=== PATIENT | male | born 1980 | race African-American/Black ===

== ENCOUNTER 2020-02-20 08:36 | Emergency (ER) | payer OTHER ==
--- OUTSIDE RECORDS SUMMARY | 2020-02-20 08:38 | XMS REPORT | Summary of Care ---
:1980 Author Organization [facility] - [facility] Address [address] [place] [id number] Care Team Providers Name Role Phone Ilya Baca Primary Care Provider Reason for Visit Reason Comments Pain left side gluteal pain. Auth/Cert Status Reason Specialty Diagnoses / Referred By Referred To Procedures Contact Contact Emergency [facility] [address] [place] [address] [place] [address] Encounter Details Date Type Department Care Team Description 02/19/2020 Emergency [facility]-Emergency Department Fabien Thomas FNP [address] [place] [address] [place] [address] [phone] Allergies Active Allergy Reactions Severity Noted Date Comments Loratadine Unknown - See comments 2008 documented as of this encounter (statuses as of 02/19/2020) Medications Medication Sig Dispensed Refills Start Date End Date Status citalopram (CELEXA) 0 05/09/2016 Active 40 mg tablet EPIPEN 2-ARGELIA 0.3 0 05/21/2016 Active mg/0.3 mL injection mirtazapine 15 mg Take 15 mg 0 Active tablet by mouth at bedtime. budesonide (UCERIS) 9 Take by 0 Active mg TaDE mouth. diazePAM (VALIUM) 10 Take 10 mg 0 Active mg tablet by mouth. zolpidem (AMBIEN) 10 Take 10 mg 0 Active mg tablet by mouth. methocarbamol Take 1 28 tablet 0 02/13/2020 Active (ROBAXIN-750) 750 mg tablet by tabletIndications: mouth 4 Muscle strain of left (four) times gluteal region, daily. initial encounter HYDROcodone-acetamino Take 1 Tab 0 02/19/2020 Discontinued phen (NORCO) 10-325 by mouth mg tablet every 6 (six) hours as needed. ALPRAZolam (XANAX) 1 0 05/03/2016 02/19/2020 Discontinued mg tablet amitriptyline 0 05/21/2016 02/19/2020 Discontinued (ELAVIL) 25 mg tablet gabapentin 0 05/16/2016 02/19/2020 Discontinued (NEURONTIN) 300 mg capsule lactulose (CEPHULAC) 0 04/24/2016 02/19/2020 Discontinued 10 gram/15 mL solution methocarbamol 0 05/03/2016 02/19/2020 Discontinued (ROBAXIN) 750 mg tablet ondansetron 0 05/04/2016 02/19/2020 Discontinued (ZOFRAN-ODT) 4 mg disintegrating tablet metoprolol tartrate Take 50 mg 0 02/19/2020 Discontinued 50 mg tablet by mouth daily. CYCLOBENZAPRINE HCL Take 10 mg 0 02/19/2020 Discontinued (FLEXERIL ORAL) by mouth 2 (two) times daily. documented as of this encounter (statuses as of 02/19/2020) Active Problems Problem Noted Date Lumbago 2008 documented as of this encounter (statuses as of 02/19/2020) Social History Tobacco Use Types Packs/Day Years Used Date Current Every Day Smoker Alcohol Use Drinks/Week oz/Week Comments Yes 7 Standard drinks or equivalent 7.0 Sex Assigned at Date Recorded Not on file Job Start Date Occupation Industry Not on file Not on file Not on file Travel History Travel Start Travel End No recent travel history available. documented as of this encounter Last Filed Vital Signs Vital Sign Reading Time Taken Comments Blood Pressure 122/78 02/19/2020 8:56 PM CDT Pulse 88 02/19/2020 8:56 PM CDT Temperature 37.2 C (99 F) 02/19/2020 8:56 PM CDT Respiratory Rate 17 02/19/2020 8:56 PM CDT Oxygen Saturation 98% 02/19/2020 8:56 PM CDT Inhaled Oxygen Concentration - - Weight 77.1 kg (170 lb) 02/19/2020 8:56 PM CDT Height 177.8 cm (5' 10") 02/19/2020 8:56 PM CDT Body Mass Index 24.39 02/19/2020 8:56 PM CDT documented in this encounter Plan of Treatment Health Maintenance Due Date Last Done Comments VARICELLA VACCINES (1 of 2 - 1983 2-dose childhood series) DTaP,Tdap,and Td Vaccines (1 - 1993 Tdap) INFLUENZA VACCINE (#1) 2019 PNEUMOCOCCAL 0-64 YEARS COMBINED Aged Out No longer eligible based on SERIES patient's age to complete this topic documented as of this encounter Procedures Procedure Name Priority Date/Time Associated Diagnosis Comments CONSENT/REFUSAL FOR Routine 02/19/2020 8:46 PM CDT DIAGNOSIS AND TREATMENT documented in this encounter Results Not on filedocumented in this encounter Insurance Payer Benefit Plan / Subscriber ID Effective Dates Phone Address Type Group [facility] [id number] [facility] PPO t S documented as of this encounter
--- OUTSIDE RECORDS SUMMARY | 2020-02-20 08:38 | XMS REPORT ---
:1980 [facility] Address [address] [place] [address] Dr. Truong [address] [place] [address] Care Team Providers Name Role Phone Unavailable Unavailable Unavailable Problems This patient has no known problems. Allergies, Adverse Reactions, Alerts This patient has no known allergies or adverse reactions. Medications This patient has no known medications.
--- OUTSIDE RECORDS SUMMARY | 2020-02-20 08:38 | XMS REPORT | Summary of Care ---
:1980 Author Organization [facility] - [facility] Address [address] [place] [address] Care Team Providers Name Role Phone Ilya Baca Primary Care Provider Reason for Visit Reason Comments Hip Pain Auth/Cert Status Reason Specialty Diagnoses / Referred By Referred To Procedures Contact Contact Emergency Medicine [facility] Emergency Dept [address] [place] [address] [place] [address] Encounter Details Date Type Department Care Team Description 02/13/2020 Emergency [facility]-Emergency Jayden Grey, Muscle strain of left Department MD gluteal region, initial [address] [place] [address] [address] [facility] encounter (Primary Dx) [place] [address] [id number] [place], [place] [id number] Allergies Active Allergy Reactions Severity Noted Date Comments Loratadine Unknown - See comments 2008 documented as of this encounter (statuses as of 02/13/2020) Medications Medication Sig Dispensed Refills Start Date End Date Status HYDROcodone-acetaminophen Take 1 Tab by 0 Active (NORCO) 10-325 mg tablet mouth every 6 (six) hours as needed. ALPRAZolam (XANAX) 1 mg 0 05/03/2016 Active tablet amitriptyline (ELAVIL) 25 0 05/21/2016 Active mg tablet citalopram (CELEXA) 40 mg 0 05/09/2016 Active tablet EPIPEN 2-ARGELIA 0.3 mg/0.3 0 05/21/2016 Active mL injection gabapentin (NEURONTIN) 0 05/16/2016 Active 300 mg capsule lactulose (CEPHULAC) 10 0 04/24/2016 Active gram/15 mL solution methocarbamol (ROBAXIN) 0 05/03/2016 Active 750 mg tablet ondansetron (ZOFRAN-ODT) 0 05/04/2016 Active 4 mg disintegrating tablet metoprolol tartrate 50 mg Take 50 mg by 0 Active tablet mouth daily. mirtazapine 15 mg tablet Take 15 mg by 0 Active mouth at bedtime. CYCLOBENZAPRINE HCL Take 10 mg by 0 Active (FLEXERIL ORAL) mouth 2 (two) times daily. budesonide (UCERIS) 9 mg Take by mouth. 0 Active TaDE diazePAM (VALIUM) 10 mg Take 10 mg by 0 Active tablet mouth. zolpidem (AMBIEN) 10 mg Take 10 mg by 0 Active tablet mouth. methocarbamol Take 1 tablet 28 tablet 0 02/13/2020 Active (ROBAXIN-750) 750 mg by mouth 4 tabletIndications: Muscle (four) times strain of left gluteal daily. region, initial encounter documented as of this encounter (statuses as of 02/13/2020) Active Problems Problem Noted Date Lumbago 2008 documented as of this encounter (statuses as of 02/13/2020) Social History Tobacco Use Types Packs/Day Years [...] Sign Reading Time Taken Comments Blood Pressure 118/72 02/13/2020 6:41 AM CDT Pulse 85 02/13/2020 6:41 AM CDT Temperature 36.4 C (97.5 F) 02/13/2020 5:34 AM CDT Respiratory Rate 18 02/13/2020 6:41 AM CDT Oxygen Saturation 99% 02/13/2020 6:41 AM CDT Inhaled Oxygen Concentration - - Weight 77.1 kg (170 lb) 02/13/2020 5:34 AM CDT Height - - Body Mass Index 23.06 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 PROCEDURES IN THE ER TODAY: No orders of the defined types were placed in this encounter. MEDICATIONS ADMINISTERED IN THE ER TODAY AND DISCHARGE MEDICATIONS: Orders Placed This Encounter Medications diazePAM (VALIUM) 10 mg tablet zolpidem (AMBIEN) 10 mg tablet ketorolac (TORADOL) injection 60 mg HYDROcodone-acetaminophen (NORCO) 10-325 mg tablet 1 tablet methocarbamol (ROBAXIN-750) 750 mg tablet FOLLOW-UP RECOMMENDATIONS: RECOMMEND FOLLOW-UP WITH YOUR PRIMARY CARE PROVIDER OR MICROWAVE TECHNICIAN IN 2-5 DAYS, ESPECIALLY IF NO IMPROVEMENT IN SYMPTOMS. MAY FOLLOW-UP WITH A PROVIDER OF YOUR CHOICE, SUCH : 1. A PHYSICIAN OF YOUR CHOICE 2. [facility], . LOCATIONS IN [facility] 3. [facility], [address] [place] [address]; OR, IF YOU WISH TO FOLLOW-UP WITHIN THE [facility], MAY TRY THESE OPTIONS (CLINIC APPOINTMENTS AVAILABLE ON [id number] BASIS): 1. SCHEDULE AN APPOINTMENT ONLINE AT [email or web address] 2. OR CALL THE [facility] AT OR 3. OR CALL YOUR [facility] PHYSICIAN'S OFFICE DIRECTLY IF YOU ARE ALREADY AN ESTABLISHED [facility] PATIENT. RETURN TO ER FOR WORSENING OF SYMPTOMS documented in this encounter Plan of Treatment [...] Procedure Name Priority Date/Time Associated Diagnosis Comments NOTICE OF PRIVACY Routine 02/13/2020 5:31 AM CDT PRACTICES CONSENT/REFUSAL FOR Routine 02/13/2020 5:30 AM CDT DIAGNOSIS AND TREATMENT CONSENT/REFUSAL FOR Routine 02/13/2020 5:30 AM CDT DIAGNOSIS AND TREATMENT documented in this encounter Results Not on filedocumented in this encounter Visit Diagnoses Diagnosis Muscle strain of left gluteal region, initial encounter - Primary documented in this encounter Administered Medications Medication Order MAR Action Action Date Dose Rate Site HYDROcodone-acetaminophen Given 02/13/2020 6:37 AM CDT 1 tablet (NORCO) 10-325 mg tablet 1 tablet 1 tablet, Oral, ONCE NOW, 1 dose, 02/13/20 at 0730, Routine ketorolac (TORADOL) Given 02/13/2020 6:37 AM CDT 60 mg Left Dorsogluteal -IM injection 60 mg 60 mg, Intramuscular, ONCE, 1 dose, 02/13/20 at 0730, LISS, natural resources faculty member approving Restricted medication: JAYDEN GREY documented in this encounter Insurance Payer Benefit Plan / Subscriber ID Effective Dates Phone Address Type Group [facility] [id number] [facility] PPO t S documented as of this encounter
[2020-02-20] MEDS ORDERED: dexAMETHasone 10 MG/ML VIAL ONE (09:14)
[2020-02-20] MEDS ORDERED: KETOROLAC 30 MG/ML INJ ONE (09:15)
--- NOTE | 2020-02-20 09:45 | EDPHYS ---
Physician Documentation [facility] Name: Harris Alanis Age: 39 yrs Sex: Male : 1980 Arrival Date: 02/20/2020 Time: 08:39 Bed 18 Private MD: Ilya Baca ED Physician Hussein Prince HPI: 02/19 08:56 This 39 yrs old Black Male presents to ER via Ambulatory with complaints of Back Pain, arun Leg Pain. 08:56 The patient presents with pain that is acute, with no known mechanism of injury. The arun symptoms are located in the low back. Onset: The symptoms/episode began/occurred 30 day(s) ago. The pain radiates to the left lower back and left gluteus galo. Associated signs and symptoms: The patient has no apparent associated signs or symptoms. The problem was sustained from unknown cause. Modifying factors: The patient symptoms are alleviated by nothing, the patient symptoms are aggravated by lifting, movement, walking. Severity of symptoms: At their worst the symptoms were moderate, in the emergency department the symptoms are unchanged. The patient has not experienced similar symptoms in the past. Historical: - Allergies: 08:56 Claritin; ss - PMHx: 08:56 Anxiety; chroinc back pain; Diabetes - NIDDM; Migraines; nerve pain; ss - PSHx: 08:56 Appendectomy; spinal cord stimulator; ss - Immunization history:: Adult Immunizations up to date. - Social history:: Smoking status: Patient denies any tobacco usage or history of. - Family history:: not pertinent. ROS: 08:56 Constitutional: Negative for fever, chills, and weight loss, Eyes: Negative for injury, arun pain, redness, and discharge, ENT: Negative for injury, pain, and discharge, Neck: Negative for injury, pain, and swelling, Cardiovascular: Negative for chest pain, palpitations, and edema, Respiratory: Negative for shortness of breath, cough, wheezing, and pleuritic chest pain, Abdomen/GI: Negative for abdominal pain, nausea, vomiting, diarrhea, and constipation, : Negative for injury, bleeding, discharge, and swelling, MS/Extremity: Negative for injury and deformity, Skin: Negative for injury, rash, and discoloration, Neuro: Negative for headache, weakness, numbness, tingling, and seizure, Psych: Negative for depression, anxiety, suicide ideation, homicidal ideation, and hallucinations, Allergy/Immunology: Negative for hives, rash, and allergies, Endocrine: Negative for neck swelling, polydipsia, polyuria, polyphagia, and marked weight changes, Hematologic/Lymphatic: Negative for swollen nodes, abnormal bleeding, and unusual bruising. 08:56 Back: Positive for decreased range of motion, of the left low back. 08:56 MS/extremity: Positive for pain, of the left hip. Exam: 08:56 Constitutional: This is a well developed, well nourished patient who is awake, alert, arun and in no acute distress. Head/Face: Normocephalic, atraumatic. Eyes: Pupils equal round and reactive to light, extra-ocular motions intact. Lids and lashes normal. Conjunctiva and sclera are non-icteric and not injected. Cornea within normal limits. Periorbital areas with no swelling, redness, or edema. ENT: Nares patent. No nasal discharge, no septal abnormalities noted. Tympanic membranes are normal and external auditory canals are clear. Oropharynx with no redness, swelling, or masses, exudates, or evidence of obstruction, uvula midline. Mucous membranes moist. Neck: Trachea midline, no thyromegaly or masses palpated, and no cervical lymphadenopathy. Supple, full range of motion without nuchal rigidity, or vertebral point tenderness. No Meningismus. Chest/axilla: Normal chest wall appearance and motion. Nontender with no deformity. No lesions are appreciated. Cardiovascular: Regular rate and rhythm with a normal S1 and S2. No gallops, murmurs, or rubs. Normal PMI, no JVD. No pulse deficits. Respiratory: Lungs have equal breath sounds bilaterally, clear to auscultation and percussion. No rales, rhonchi or wheezes noted. No increased work of breathing, no retractions or nasal flaring. Abdomen/GI: Soft, non-tender, with normal bowel sounds. No distension or tympany. No guarding or rebound. No evidence of tenderness throughout. Back: No spinal tenderness. No costovertebral tenderness. Full range of motion. Male : Normal genitalia with no discharge or lesions. Skin: Warm, dry with normal turgor. Normal color with no rashes, no lesions, and no evidence of cellulitis. Neuro: Awake and alert, GCS 15, oriented to person, place, time, and situation. Cranial nerves II-XII grossly intact. Motor strength 5/5 in all extremities. Sensory grossly intact. Cerebellar exam normal. Normal gait. Psych: Awake, alert, with orientation to person, place and time. Behavior, mood, and affect are within normal limits. 08:56 Musculoskeletal/extremity: Extremities: all appear grossly normal, with no appreciated pain with palpation, ROM: limited passive range of motion, limited active range of motion due to pain, in the left leg, Circulation is intact in all extremities. Sensation intact. Compartment Syndrome exam of affected extremity: is normal. Weight bearing: able to fully bear weight, DVT Exam: no swelling, negative Homans' sign noted on exam, no appreciated bluish discoloration, no erythema, no increased warmth, pain, tenderness. Vital Signs: 08:52 BP 115 / 79; Pulse 78; Resp 14; Temp 97.9(TE); Pulse Ox 97% ; Weight 72.57 kg; Height 5 ss ft. 11 in. (180.34 cm); 08:52 Body Mass Index 22.32 (72.57 kg, 180.34 cm) ss MDM: 08:43 Patient medically screened. [facility] 08:59 Data reviewed: vital signs, nurses notes, lab test result(s), radiologic studies, plain [facility] films. 02/19 08:56 Order name: Pelvis XRAY [facility] 02/19 08:58 Order name: Lumbar Spine 3 Views EDMS Administered Medications: 09:25 Drug: TORadol 60 mg Route: IM; Site: left deltoid; hb 09:54 Follow up: Response: No adverse reaction 09:25 Drug: Decadron 10 mg Route: IM; Site: left ventrogluteal; hb 09:54 Follow up: Response: No adverse reaction Disposition: 02/20/20 09:44 Discharged to Home. Impression: Low back pain, Sciatica, left side, Sciatica, Pain in left hip. - Condition is Stable. - Discharge Instructions: Back Pain, Adult, Musculoskeletal Pain, Sciatica, Back Pain, Adult, [id number], Hip Pain. - Prescriptions for Ibuprofen 600 mg Oral Tablet - take 1 tablet by ORAL route every 6 hours As needed take with food; 30 tablet. Tylenol- Codeine #3 300-30 mg Oral Tablet - take 2 tablets by ORAL route every 6 hours As needed; 20 tablet. Medrol (Carlos) 4 mg Oral Tablets, Dose Pack - take 1 tablet by ORAL route as directed - follow package instructions; 1 packet. Cyclobenzaprine 5 mg Oral Tablet - take 1 tablet by ORAL route 3 times per day As needed; 15 tablet. - Medication Reconciliation Form, Thank You Letter, Antibiotic Education, Prescription Opioid Use form. - Follow up: Ilya Baca; When: 2 - 3 days; Reason: Recheck today's complaints, Continuance of care, Re-evaluation by your physician. - Problem is new. - Symptoms have improved. Signatures: Dispatcher [employer] [facility] Hussein Prince MD MD cha Smirch, Shelby, RN RN Allyssa Correa RN RN Corrections: (The following items were deleted from the chart) 09:01 08:57 Lumbar Spine 3 Views+[id number] ordered. [facility] 09:45 09:44 02/20/2020 09:44 Discharged to Home. Impression: Low back pain; Sciatica, left arun side; Sciatica. Condition is Stable. Discharge Instructions: Back Pain, Adult, Musculoskeletal Pain, Sciatica, Back Pain, Adult, [id number]. Prescriptions for Ibuprofen 600 mg Oral Tablet - take 1 tablet by ORAL route every 6 hours As needed take with food; 30 tablet, Tylenol-Codeine #3 300-30 mg Oral Tablet - take 2 tablet by ORAL route every 6 hours As needed; 30 tablet, Medrol (Carlos) 4 mg Oral Tablets, Dose Pack - take 1 tablet by ORAL route as directed - follow package instructions; 1 packet, Cyclobenzaprine 5 mg Oral Tablet - take 1 tablet by ORAL route 3 times per day As needed; 15 tablet. and Forms are Medication Reconciliation Form, Thank You Letter, Antibiotic Education, Prescription Opioid Use. Follow up: Ilya Baca; When: 2 - 3 days; Reason: Recheck today's complaints, Continuance of care, Re-evaluation by your physician. Problem is new. Symptoms have improved. [facility] 09:59 09:45 02/20/2020 09:44 Discharged to Home. Impression: Low back pain; Sciatica, left hb side; Sciatica; Pain in left hip. Condition is Stable. Discharge Instructions: Back Pain, Adult, Musculoskeletal Pain, Sciatica, Back Pain, Adult, [id number], Hip Pain. Prescriptions for Ibuprofen 600 mg Oral Tablet - take 1 tablet by ORAL route every 6 hours As needed take with food; 30 tablet, Medrol (Carlos) 4 mg Oral Tablets, Dose Pack - take 1 tablet by ORAL route as directed - follow package instructions; 1 packet, Cyclobenzaprine 5 mg Oral Tablet - take 1 tablet by ORAL route 3 times per day As needed; 15 tablet, Tylenol-Codeine #3 300-30 mg Oral Tablet - take 2 tablets by ORAL route every 6 hours As needed; 20 tablet. and Forms are Medication Reconciliation Form, Thank You Letter, Antibiotic Education, Prescription Opioid Use. Follow up: Ilya Baca; When: 2 - 3 days; Reason: Recheck today's complaints, Continuance of care, Re-evaluation by your physician. Problem is new. Symptoms have improved. arun
--- NOTE | 2020-02-20 09:45 | ER ---
Nurse's Notes [facility] Name: Harris Alanis Age: 39 yrs Sex: Male : 1980 Arrival Date: 02/20/2020 Time: 08:39 Bed 18 Private MD: Ilya Baca Diagnosis: Low back pain;Sciatica, left side;Sciatica;Pain in left hip Presentation: 02/19 08:52 Chief complaint: Patient states: L hip pain that radiates towards L flank x 6 weeks. Pt ss reports over time, the pain has got much worse. Coronavirus screen: Patient denies fever greater than 100.4F, cough, shortness of breath, or difficulty breathing. Proceed with normal triage process. Ebola Screen: Patient denies exposure to infectious person. Patient denies travel to an Ebola-affected area in the 21 days before illness onset. Initial Sepsis Screen: Does the patient meet any 2 criteria? No. Patient's initial sepsis screen is negative. Does the patient have a suspected source of infection? No. Patient's initial sepsis screen is negative. Risk Assessment: Do you want to hurt yourself or someone else? Patient reports no desire to harm self or others. 08:52 Method Of Arrival: Ambulatory ss 08:52 Acuity: SHANIQUE 3 ss Historical: - Allergies: 08:56 Claritin; ss - PMHx: 08:56 Anxiety; chroinc back pain; Diabetes - NIDDM; Migraines; nerve pain; ss - PSHx: 08:56 Appendectomy; spinal cord stimulator; ss - Immunization history:: Adult Immunizations up to date. - Social history:: Smoking status: Patient denies any tobacco usage or history of. - Family history:: not pertinent. Screenin:54 Abuse screen: Denies threats or abuse. Denies injuries from another. Nutritional hb screening: No deficits noted. Tuberculosis screening: No symptoms or risk factors identified. Fall Risk None identified. Assessment: 09:00 General: Appears in no apparent distress. Behavior is calm, cooperative. hb 09:00 Pain: Pain currently is 8 out of 10 on a pain scale. Neuro: Level of Consciousness is hb awake, alert, obeys commands, Oriented to person, place, time, situation. Cardiovascular: Capillary refill < 3 seconds Patient's skin is warm and dry. Respiratory: Airway is patent Respiratory effort is even, unlabored, Respiratory pattern is regular, symmetrical. GI: No signs and/or symptoms were reported involving the gastrointestinal system. : No signs and/or symptoms were reported regarding the genitourinary system. EENT: No signs and/or symptoms were reported regarding the EENT system. Derm: Skin is pink, warm \T\ dry. Musculoskeletal: Reports low back pain that radiates to left hip and left leg. Vital Signs: 08:52 BP 115 / 79; Pulse 78; Resp 14; Temp 97.9(TE); Pulse Ox 97% ; Weight 72.57 kg; Height 5 ss ft. 11 in. (180.34 cm); 08:52 Body Mass Index 22.32 (72.57 kg, 180.34 cm) ED Course: 08:39 Patient arrived in ED. mr 08:40 Ilya Baca MD is Private Physician. mr 08:40 Hussein Prince MD is Attending Physician. arun 08:54 Triage completed. ss 08:54 Allyssa Correa, FLAVIA is Primary Nurse. hb 08:54 Patient has correct armband on for positive identification. Bed in low position. Call hb light in reach. 08:56 Arm band placed on right wrist. ss 09:15 Lumbar Spine 3 Views In Process Unspecified. EDMS 09:15 Pelvis XRAY In Process Unspecified. EDMS 09:44 Ilya Baca MD is Referral Physician. arun 09:58 No provider procedures requiring assistance completed. Patient did not have IV access hb during this emergency room visit. Administered Medications: 09:25 Drug: TORadol 60 mg Route: IM; Site: left deltoid; hb 09:54 Follow up: Response: No adverse reaction hb 09:25 Drug: Decadron 10 mg Route: IM; Site: left ventrogluteal; hb 09:54 Follow up: Response: No adverse reaction hb Outcome: 09:44 Discharge ordered by . arun 09:58 Discharged to home ambulatory. hb 09:58 Condition: stable 09:58 Discharge instructions given to patient, Instructed on discharge instructions, follow up and referral plans. medication usage, Demonstrated understanding of instructions, follow-up care, medications, Prescriptions given X 4. 09:59 Patient left the ED. hb Signatures: Dispatcher [employer] EDOH Hussein Prince MD MD cha Rivera, Mary mr Smirch, Shelby, RN RN ss Allyssa Correa, RN RN hb
[2020-02-20 10:07] VITALS: BP 115/79; TEMP 97.9; O2SAT 97
--- NOTE | 2020-02-20 12:28 | RAD REPORT ---
EXAM DESCRIPTION: RAD - Pelvis - 02/20/2020 9:17 am CLINICAL HISTORY: PAIN COMPARISON: No comparisons FINDINGS: No fracture, dislocation or radiographic evidence of AVN. Stimulator device projects over the right iliac wing. IMPRESSION: Negative study.
--- NOTE | 2020-02-20 12:29 | RAD REPORT ---
EXAM DESCRIPTION: RAD - Lumbar Spine 3 Views - 02/20/2020 9:15 am CLINICAL HISTORY: PAIN Radiculopathy COMPARISON: No comparisons FINDINGS: Vertebral body heights appear maintained. No compression fracture noted. Small endplate os teophytes are seen lower lumbar levels. No spondylolysis or spondylolisthesis. Spinal stimulator device. Cholecystectomy clips. IMPRESSION: Minimal lower lumbar spondylosis.
== END 2020-02-20 09:59 | disposition home or self-care (01) ==
LOC: ER 08:36
DX: M54.32 Sciatica, left side (principal); M25.552 Pain in left hip; Z88.8 Allergy status to other drugs, medicaments and biological substances
CPT/HCPCS: 72100; 72170; 96372; 99283; J1100

== ENCOUNTER 2020-07-25 18:28 | Emergency (ER) | payer OTHER, SELFPAY ==
--- OUTSIDE RECORDS SUMMARY | 2020-07-25 18:31 | XMS REPORT | Continuity of Care Document ---
:1980 Author Organization [facility] t Address [address] [place] [address] Care Team Providers Name Role Phone William BONDS Attending Clinician Adebayo DEMPSEY S Attending Clinician Problems This patient has no known problems. Allergies, Adverse Reactions, Alerts This patient has no known allergies or adverse reactions. Medications This patient has no known medications. Procedures This patient has no known procedures. Encounters Start End Encounter Admission Attending Care Care Encounter Source Date/Time Date/Time Type Type Clinicians Facility Department ID 2020-02-19 2020-02-19 Emergency [id number] 20:56:33 21:37:00 Fabien Gómez [id number] [place] [id number] [place] [id number] 2020-02-13 2020-02-13 Emergency [place] [id number] 05:38:10 06:52:00 Jayden Gómez [id number] [place] [id number] [place] [id number] Results This patient has no known results.
[2020-07-25] MEDS ORDERED: ONDANSETRON 4 MG/2 ML VIAL ONE (19:40)
[2020-07-25] MEDS ORDERED: FENTANYL CITR 100 MCG/2 ML ONE (19:40)
[2020-07-25 19:41] LABS: Absolute Lymphocytes (CBC) 1.6 K/uL (0.7-4.9); Hematocrit 48.2 % (39.6-49.0); MPV 9.6 fL (7.6-11.3)
[2020-07-25 19:53] LABS: ALT/SGPT 29 U/L (12-78); AST/SGOT 13 U/L (15-37); Albumin 3.7 g/dL (3.4-5.0); Alkaline Phosphatase 57 U/L (45-117); BUN Blood Urea Nitrogen 10 mg/dL (7-18); Bicarbonate 25 mmol/L (21-32); Bilirubin Direct < 0.1 mg/dL (0-0.2); Bilirubin Total 0.3 mg/dL (0.2-1.0); Glucose Level 108 mg/dL (74-106); Lipase 106 U/L (73-393); Protein, Total 7.8 g/dL (6.4-8.2); Sodium Level 142 mmol/L (136-145)
--- NOTE | 2020-07-25 20:03 | RAD REPORT ---
EXAM DESCRIPTION: CT - CTHCSPWOC - 07/25/2020 7:47 pm CLINICAL HISTORY: PAIN, fall with head trauma, neck pain COMPARISON: Myelogram C Spine dated 05/14/2016 TECHNIQUE: Axial 5 mm thick images of the head were obtained. Axial 2 mm thick images of the cervic al spine were obtained with sagittal and coronal reconstruction images generated and reviewed. All CT scans are performed using dose optimization technique as appropriate and may include automated exposure control or mA/KV adjustment according to patient size. FINDINGS: No intracranial hemorrhage, mass, edema or acute intracranial finding. No suspicion for ac neal infarction. No extra-axial fluid collections. Mastoid air cells and paranasal sinuses are clear. No globe or orbit abnormality seen. Cervical body height and alignment are normal. C3-4 and C4-5 disc space narrowing similar to comparis on. No fracture or acute bony abnormality. Central canal detail is inherently limited. No paraspinal mass or hematoma. IMPRESSION: Negative CT head examination for acute or significant finding. Negative CT cervical spine examination for acute or significant finding.
[2020-07-25] MEDS ORDERED: NA CHLORIDE 0.9% 1,000 ML ONE (20:05)
--- NOTE | 2020-07-25 20:05 | RAD REPORT ---
EXAM DESCRIPTION: CT - Abdomen Pelvis W Contrast - 07/25/2020 7:47 pm CLINICAL HISTORY: FLANK PAIN COMPARISON: Abdomen Pelvis W Contrast dated 10/22/2016 TECHNIQUE: Biphasic, helical CT imaging of the abdomen and pelvis was performed following 100 ml non -ionic IV contrast. Oral contrast was given. All CT scans are performed using dose optimization technique as appropriate and may include automated exposure control or mA/KV adjustment according to patient size. FINDINGS: No suspicious findings in the lung bases. The liver, spleen, and pancreas show no suspicious findings. Cholecystectomy clips are present. No bi liary tree dilatation. Symmetric renal function is seen with no hydronephrosis or suspicious renal mass. No pyelonephritis o r acute parenchymal process. No bladder abnormalities. No adrenal abnormalities. No dilated bowel loops or bowel wall thickening. No free air, free fluid or inflammatory stranding. No hernia, mass or bulky lymphadenopathy. No acute bone findings. Neurostimulator battery pack in the right-side gluteal fatty tissues. Wires e nter the central canal in the mid lumbar level extending to the midthoracic level. IMPRESSION: Contrast enhanced CT abdomen and pelvis showing no acute or emergent finding finding.
[2020-07-25 20:53] LABS: Urine Amorphous Sediment 1+ /HPF (NONE SEEN); Urine Bacteria NONE SEEN /HPF (NONE SEEN); Urine Culture Reflex Order NOT NEEDED; Urine RBC <5 /HPF (NONE SEEN)
[2020-07-25 20:54] LABS: Urine Blood NEGATIVE (NEG); Urine Glucose NEGATIVE (NEG); Urine Protein NEGATIVE (NEG)
--- NOTE | 2020-07-25 21:28 | ER ---
Nurse's Notes [facility] Name: Harris Alanis Age: 40 yrs Sex: Male : 1980 Arrival Date: 07/25/2020 Time: 18:30 Bed 4 Private MD: Ilya Baca Diagnosis: Low back pain Presentation: 07/25 18:35 Chief complaint: Patient states: "I have a spinal cord stimulator and 2 days it stopped aa5 working and I fell today and my back hurts and I feel tingling in both my hands". Pt states 'I've been having trouble with the spinal stimulator battery and I think it finally gave up". Pt also reports nausea/vomiting, pt states "I think the vomiting is from the pain". 18:35 Coronavirus screen: Client denies travel out of the [place] in the last 14 days. At this aa5 time, the client does not indicate any symptoms associated with coronavirus-19. Ebola Screen: Patient negative for fever greater than or equal to 101.5 degrees Fahrenheit, and additional compatible Ebola Virus Disease symptoms. Initial Sepsis Screen: Does the patient meet any 2 criteria? No. Patient's initial sepsis screen is negative. Does the patient have a suspected source of infection? No. Patient's initial sepsis screen is negative. Risk Assessment: Do you want to hurt yourself or someone else? Patient reports no desire to harm self or others. Onset of symptoms was July 25, 2020. 18:35 Method Of Arrival: Ambulatory aa5 18:35 Acuity: SHANIQUE 3 aa5 Historical: - Allergies: 18:43 Claritin; aa5 - PMHx: 18:43 Anxiety; chroinc back pain; Diabetes - NIDDM; Migraines; nerve pain; aa5 - PSHx: 18:43 Appendectomy; spinal cord stimulator; aa5 - Immunization history:: Adult Immunizations unknown. - Social history:: Smoking status: Patient denies any tobacco usage or history of. Screenin:44 Abuse screen: Denies threats or abuse. Denies injuries from another. Nutritional rr5 screening: No deficits noted. Tuberculosis screening: No symptoms or risk factors identified. Fall Risk IV access (20 points). Total Acevedo Fall Scale indicates No Risk (0-24 pts). Assessment: 19:30 General: Appears in no apparent distress. comfortable, Behavior is calm, cooperative. mg2 Pain: Complains of pain in back. Neuro: Level of Consciousness is awake, alert, obeys commands, Oriented to person, place, time, situation. Cardiovascular: Capillary refill < 3 seconds Patient's skin is warm and dry. Respiratory: Airway is patent Respiratory effort is even, unlabored, Respiratory pattern is regular, symmetrical. GI: Abdomen is flat, Reports nausea, vomiting. : Reports pain in lower back. EENT: No signs and/or symptoms were reported regarding the EENT system. Derm: Skin is intact, is healthy with good turgor, Skin is pink, warm \\T\\ dry. normal. Musculoskeletal: Circulation, motion, and sensation intact. Capillary refill < 3 seconds. 20:40 Reassessment: Patient appears in no apparent distress at this time. Patient is alert, rr5 oriented x 3, equal unlabored respirations, skin warm/dry/pink. awaiting for results. 21:34 Reassessment: Patient appears in no apparent distress at this time. Patient states mg2 feeling better. Patient states symptoms have improved. 21:34 Reassessment: discharge instruction given and explained without complaints made. rr5 Vital Signs: 18:35 BP 140 / 90; Pulse 81; Resp 18 S; Temp 98.2(O); Pulse Ox 99% on R/A; Weight 85.28 kg aa5 (R); Height 5 ft. 11 in. (180.34 cm) (R); Pain 8/10; 19:58 BP 115 / 91; Pulse 60; Resp 18; Pulse Ox 98% on R/A; Pain 7/10; mg2 21:23 BP 104 / 70; Pulse 65; Resp 18; Pulse Ox 100% on R/A; mg2 18:35 Body Mass Index 26.22 (85.28 kg, 180.34 cm) aa5 ED Course: 18:30 Patient arrived in ED. ag5 18:30 Ilya Baca MD is Private Physician. ag5 18:35 Arm band placed on. aa5 18:42 Triage completed. aa5 18:58 Haile Cueto NP is PHCP. pm1 18:58 Negro Batista MD is Attending Physician. pm1 19:13 Henry Cruz RN is Primary Nurse. rr5 19:40 Inserted saline lock: 20 gauge in left antecubital area, using aseptic technique. Blood rr5 collected. 19:44 Patient has correct armband on for positive identification. mg2 19:44 Patient has correct armband on for positive identification. Bed in low position. Call rr5 light in reach. Pulse ox on. NIBP on. 19:47 CT Head C Spine In Process Unspecified. EDMS 19:48 CT Abd/Pelvis - IV Contrast Only In Process Unspecified. EDMS 19:59 No provider procedures requiring assistance completed. mg2 21:34 IV discontinued, intact, bleeding controlled, No redness/swelling at site. Pressure mg2 dressing applied. Administered Medications: 19:31 Drug: fentaNYL (PF) 50 mcg Route: IVP; Site: left antecubital; mg2 20:21 Follow up: Response: No adverse reaction; RASS: Alert and Calm (0) mg2 19:32 Drug: Zofran (Ondansetron) 4 mg Route: IVP; Site: left antecubital; mg2 20:21 Follow up: Response: No adverse reaction mg2 19:57 Drug: NS 0.9% 1000 ml Route: IV; Rate: 1000 ml; Site: left antecubital; mg2 21:35 Follow up: Response: No adverse reaction; IV Status: Completed infusion; IV Intake: mg2 1000ml 21:24 Drug: morphine 4 mg Route: IVP; Site: left antecubital; mg2 21:34 Follow up: Response: No adverse reaction; Marked relief of symptoms; RASS: Alert and mg2 Calm (0) Intake: 21:35 IV: 1000ml; Total: 1000ml. mg2 Output: 20:37 Urine: 410ml (Voided); Total: 410ml. mg2 Outcome: 21:27 Discharge ordered by MD. pm1 21:34 Discharged to home ambulatory. mg2 21:34 Condition: stable 21:34 Discharge instructions given to patient, Instructed on discharge instructions, follow up and referral plans. medication usage, Demonstrated understanding of instructions, follow-up care, medications, Prescriptions given X 2. 21:37 Patient left the ED. rr5 Signatures: Dispatcher [employer] EDMS Luly Walker RN RN aa5 Haile Cueto, NATUROPATHIC DOCTOR NATUROPATHIC DOCTOR pm1 James Calhoun RN RN mg2 Henry Cruz RN RN rr5 Aubree Kay ag5 Corrections: (The following items were deleted from the chart) 18:45 18:35 Chief complaint: Patient states: "I have a spinal cord stimulator and 2 days it aa5 stopped working and I fell today and my back hurts and I feel tingling in both my hands". Pt also reports nausea/vomiting, pt states "I think the vomiting is from the pain" aa5
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
[2020-07-25] MEDS ORDERED: MORPHINE 4 MG/ML SYR ONE (21:32)
== END 2020-07-25 21:37 | disposition home or self-care (01) ==
LOC: ER 18:28
DX: M54.5 Low back pain (principal); W18.09XA Striking against other object with subsequent fall, initial encounter; Y93.9 Activity, unspecified; Y92.9 Unspecified place or not applicable; Z88.8 Allergy status to other drugs, medicaments and biological substances; Z96.82 Presence of neurostimulator
CPT/HCPCS: 36415; 70450; 72125; 74177; 80048; 80076; 81003; 81015; 82565; 83690; 85025; 96361; 96374; 96375; 99284; J2405; J3010; J7030; Q9967

== ENCOUNTER 2020-08-09 04:05 | Emergency (ER) | payer OTHER ==
--- OUTSIDE RECORDS SUMMARY | 2020-08-09 04:07 | XMS REPORT | Clinical Summary ---
:1980 Author Organization [facility] Address [address] [place] [address] Care Team Providers Name Role Phone Unavailable Primary Care Provider Unavailable Allergies No Known Allergies Medications No known medications Active Problems Not on file Encounters Date Type Specialty Care Team Description 08/03/2020 Emergency Emergency Medicine Will Greene MD Chr onic low back pain, unspecified anna k pain laterality, uns pecified whether sciatic a present (Primary Dx) 08/03/2020 Travel after 08/09/2019 Social History Tobacco Use Types Packs/Day Years Used Date Never Smoker Smokeless Tobacco: Current User Alcohol Use Drinks/Week oz/Week Comments No Alcohol Habits Answer Date Recorded How often do you have a drink containing alcohol? Never 08/03/2020 How many drinks containing alcohol do you have on a typical Not asked day when you are drinking? How often do you have six or more drinks on one occasion? No t asked Sex Assigned at Date Recorded Not on file Job Start Date Occupation Industry Not on file Not on file Not on file Travel History Travel Start Travel End No recent travel history available. Last Filed Vital Signs Vital Sign Reading Time Taken Blood Pressure 124/88 08/03/2020 1:31 PM CDT Pulse 89 08/03/2020 1:31 PM CDT Temperature 36.9 C (98.5 F) 08/03/2020 1:02 PM CDT Respiratory Rate 20 08/03/2020 1:31 PM CDT Oxygen Saturation 100% 08/03/2020 1:02 PM CDT Inhaled Oxygen Concentration - - Weight 85.3 kg (188 lb) 08/03/2020 12:37 PM CDT Height 182.9 cm (6') 08/03/2020 12:37 PM CDT Body Mass Index 25.5 08/03/2020 12:37 PM CDT Plan of Treatment Not on file Results Not on fileafter 08/09/2019 Insurance Payer Benefit Plan / Group Subscriber ID Type Phone [facility] [place]ICA[place] xxxxxxxxx Medicaid
--- OUTSIDE RECORDS SUMMARY | 2020-08-09 04:07 | XMS REPORT | Continuity of Care Document ---
:1980 Author Organization [facility] Address [address] [place] [address] Care Team Providers Name Role Phone Ramona DEMPSEY Attending Clinician William BONDS Attending Clinician Baudilio Fiore MD Attending Clinician Payers Payer Name Policy Policy Number Effective Expiration Source Type Date Date MEDICAIDMEDICAID OF xxxxxxxxx [facility] Problems This patient has no known problems. Allergies, Adverse Reactions, Alerts This patient has no known allergies or adverse reactions. Social History Social Habit Start Date Stop Date Quantity Comments Source History SDVA Alcohol [facility] Std Drinks [facility] History [facility] Alcohol [facility] Binge [facility] Sex Assigned At [facility] History SDOH Alcohol 2020-08-03 2020-08-03 1 [facility] - Frequency 00:00:00 00:00:00 [facility] Smoking Status Start Date Stop Date Source Never smoker [facility] Medications This patient has no known medications. Vital Signs Vital Name Observation Time Observation Value Comments Source Systolic blood 2020-08-03 13:31:00 124 mm[Hg] [facility] Diastolic blood 2020-08-03 13:31:00 88 mm[Hg] [facility] S [facility] Heart rate 2020-08-03 13:31:00 89 /min [facility] Respiratory rate 2020-08-03 13:31:00 20 /min [facility] Body temperature 2020-08-03 13:02:00 36.94 Gabriela [facility] Oxygen saturation in 2020-08-03 13:02:00 100 /min [facility] - Arterial blood by Medical Ce [facility]ter Pulse oximetry Body height 2020-08-03 12:37:00 182.9 cm [facility] Body weight Measured 2020-08-03 12:37:00 85.276 kg [facility] BMI 2020-08-03 12:37:00 25.50 kg/m2 [facility] Procedures This patient has no known procedures. Encounters Start End Encounter Admission Attending Care Care Encounter Source Date/Time Date/Time Type Type Clinicians Facility Department ID 2020-02-19 2020-02-19 Emergency [facility] [id number] 20:56:33 21:37:00 Fabien Gómez [id number] [place] [id number] [place] [id number] 2020-02-13 2020-02-13 Emergency [facility] [id number] 05:38:10 06:52:00 Jayden Gómez [id number] [place] [id number] [place] [id number] Results This patient has no known results.
[2020-08-09 05:03] LABS: Absolute Lymphocytes (CBC) 1.4 K/uL (0.7-4.9); Basophils % 0.5 % (0-1.3); Hematocrit 45.8 % (39.6-49.0); Lymphocytes % 22.9 % (15.3-44.8); MPV 9.6 fL (7.6-11.3); RBC Red Blood Cell Count 5.23 M/uL (4.33-5.43)
[2020-08-09] MEDS ORDERED: MORPHINE 4 MG/ML SYR ONE (05:06)
[2020-08-09] MEDS ORDERED: NA CHLORIDE 0.9% 1,000 ML ONE (05:07)
[2020-08-09] MEDS ORDERED: ONDANSETRON 4 MG/2 ML VIAL ONE (05:07)
[2020-08-09 05:20] LABS: ALT/SGPT 30 U/L (12-78); AST/SGOT 12 U/L (15-37); Albumin 3.8 g/dL (3.4-5.0); Alkaline Phosphatase 61 U/L (45-117); BUN Blood Urea Nitrogen 13 mg/dL (7-18); Bicarbonate 28 mmol/L (21-32); Bilirubin Direct < 0.1 mg/dL (0-0.2); Bilirubin Total 0.3 mg/dL (0.2-1.0); Glucose Level 120 mg/dL (74-106); Potassium 3.8 mmol/L (3.5-5.1); Protein, Total 7.3 g/dL (6.4-8.2); Sodium Level 143 mmol/L (136-145)
[2020-08-09 05:37] LABS: Urine Blood NEGATIVE (NEG); Urine Glucose NEGATIVE (NEG); Urine Protein NEGATIVE (NEG); Urine Specific Gravity >1.030 (1.005-1.030); Urine pH 5.5 (5.0-7.0)
[2020-08-09] MEDS ORDERED: KETOROLAC 30 MG/ML INJ ONE (06:21)
[2020-08-09] MEDS ORDERED: LIDOCAINE 4% PATCH ONE (06:38)
[2020-08-09] MEDS ORDERED: HYDROMORPHONE HCL 1 MG/ML INJ ONE (06:51)
--- NOTE | 2020-08-09 06:54 | ER ---
Nurse's Notes [facility] Name: Harris Alanis Age: 40 yrs Sex: Male : 1980 Arrival Date: 08/09/2020 Time: 04:09 Bed 13 Private MD: Diagnosis: Lower Back Pain;Flank Pain Presentation: 08/09 04:28 Chief complaint: Patient states: "I have a spinal cord stimulator and it stopped vc working on july 24, my doctors office is supposed to get with me today to schedule an appointment for surgery to place another one, they pain is just to bad now.". Coronavirus screen: At this time, the client does not indicate any symptoms associated with coronavirus-19. Ebola Screen: No symptoms or risks identified at this time. Initial Sepsis Screen: Does the patient meet any 2 criteria? No. Patient's initial sepsis screen is negative. Does the patient have a suspected source of infection? No. Patient's initial sepsis screen is negative. Risk Assessment: Do you want to hurt yourself or someone else? Patient reports no desire to harm self or others. Onset of symptoms was July 24, 2020. 04:28 Method Of Arrival: Ambulatory vc 04:28 Acuity: SHANIQUE 3 vc Triage Assessment: 04:38 General: Appears in no apparent distress. uncomfortable, slender, well groomed, vc Behavior is calm, cooperative, appropriate for age. Pain: Complains of pain in left low back, posterior aspect of left lateral abdomen and left hip Pain radiates to left leg Pain currently is 9 out of 10 on a pain scale. at worst was 10 out of 10 on a pain scale. Alleviated by nothing. Noted to be grimacing, restless. Musculoskeletal: Circulation, motion, and sensation intact. Range of motion: intact in all extremities. Historical: - Allergies: 04:36 Claritin; vc - Home Meds: 04:36 Valium Oral [Active]; Abilify oral oral [Active]; venlafaxine oral oral [Active]; vc Ambien CR oral oral [Active]; hydrocodone-acetaminophen 5-325 mg Oral tab [Active]; - PMHx: 04:36 Anxiety; nerve pain; vc - PSHx: 04:36 Appendectomy; spinal cord stimulator; Cholecystectomy; vc - Immunization history:: Adult Immunizations up to date. - Social history:: Smoking status: Patient denies any tobacco usage or history of. Screenin:37 Abuse screen: Denies threats or abuse. Nutritional screening: No deficits noted. vc Tuberculosis screening: No symptoms or risk factors identified. Fall Risk No fall in past 12 months (0 pts). Secondary diagnosis (15 points) impaired mobility, No IV (0 pts). Ambulatory Aid- Crutches/Cane/Walker (15 pts). Gait- Weak (10 pts.). Mental Status- Oriented to own ability (0 pts). Total Acevedo Fall Scale indicates Low Risk Score (25-44 pts). Fall prevention measures have been instituted. As available Patient and Family Educated on Fall Prevention Program and strategies. Assessment: 04:41 General: Appears in no apparent distress. uncomfortable, slender, well groomed, vc Behavior is calm, cooperative, appropriate for age. Pain: Complains of pain in posterior aspect of left lateral abdomen and left hip and left low back Pain currently is 9 out of 10 on a pain scale. Neuro: Level of Consciousness is awake, alert, obeys commands, Oriented to person, place, time, situation, Appropriate for age. Cardiovascular: Capillary refill < 3 seconds Patient's skin is warm and dry. Respiratory: Airway is patent Respiratory effort is even, unlabored, Respiratory pattern is regular, symmetrical. GI: No signs and/or symptoms were reported involving the gastrointestinal system. : No signs and/or symptoms were reported regarding the genitourinary system. EENT: No signs and/or symptoms were reported regarding the EENT system. Derm: Skin is intact, is healthy with good turgor, Skin temperature is warm. Musculoskeletal: Circulation, motion, and sensation intact. Range of motion: intact in all extremities. 05:30 Reassessment: Patient and/or family updated on plan of care and expected duration. Pain vc level reassessed. Patient states symptoms have not improved. 06:10 Reassessment: PATIENT STATES THE MEDICINE DID NOT HELP HIS PAIN, MD NOTIFIED, NEW vc ORDERS GIVEN AND IMPLEMENTED. Patient states symptoms have not improved. 06:40 Reassessment: Patient and/or family updated on plan of care and expected duration. Pain vc level reassessed. Patient states symptoms have not improved. Vital Signs: 04:28 BP 105 / 85; Pulse 85; Resp 18; Temp 99.4; Pulse Ox 100% on R/A; Weight 85.28 kg; vc Height 5 ft. 11 in. (180.34 cm); Pain 9/10; 06:00 BP 116 / 84; Pulse 63; Resp 17; Pulse Ox 100% on R/A; vc 06:10 Pain 8/10; vc 06:42 BP 116 / 84; Pulse 64; Resp 16; Pulse Ox 99% on R/A; vc 04:28 Body Mass Index 26.22 (85.28 kg, 180.34 cm) vc ED Course: 04:09 Patient arrived in ED. bp1 04:18 John Xiao MD is Attending Physician. mh7 04:28 Lyric Ballard RN is Primary Nurse. vc 04:33 Triage completed. vc 04:40 Arm band placed on. vc 04:40 Patient has correct armband on for positive identification. Pulse ox on. NIBP on. vc 04:45 Inserted saline lock: 20 gauge in right antecubital area, using aseptic technique. vc Blood collected. 05:46 CT Abd/Pelvis - IV Contrast Only In Process Unspecified. EDMS 06:57 No provider procedures requiring assistance completed. IV discontinued, intact, vc bleeding controlled, No redness/swelling at site. Pressure dressing applied. Administered Medications: 05:00 Drug: Zofran (Ondansetron) 4 mg Route: IVP; Site: right antecubital; vc 06:13 Follow up: Response: No adverse reaction; Nausea is decreased vc 05:02 Drug: morphine 4 mg {Note: RASS 0 - Awake and alert pain 9/10.} Route: IVP; Site: right vc antecubital; 06:13 Follow up: Response: Pain is unchanged, physician notified; RASS: Alert and Calm (0) vc 05:40 Drug: NS 0.9% 1000 ml Route: IV; Rate: 1000 ml; Site: right antecubital; vc 06:12 Drug: TORadol 30 mg Route: IVP; Site: right antecubital; vc 06:46 Follow up: Response: No adverse reaction; Blood pressure is unchanged vc 06:30 Drug: Lidoderm 5 % (700 mg/patch) 1 patches {Note: applied to left lower back and hip.} vc Route: Topical; Site: wound; 06:46 Drug: Dilaudid 1 mg {Note: RASS-0.} Route: IVP; Site: right antecubital; vc 07:03 Follow up: Response: No adverse reaction vc Outcome: 06:54 Discharge ordered by . marybeth 06:58 Discharged to home with family. 06:58 Condition: improved 06:58 Discharge instructions given to patient, Instructed on discharge instructions, follow up and referral plans. Demonstrated understanding of instructions, follow-up care. 07:03 Patient left the ED. Signatures: Dispatcher [employer] EDLyirc Groves RN RN vc Paniauga, Brittany bp1 Holmes, Maurice, MD MD mh7
--- NOTE | 2020-08-09 06:54 | EDPHYS ---
Physician Documentation [facility] Name: Harris Alanis Age: 40 yrs Sex: Male : 1980 Arrival Date: 08/09/2020 Time: 04:09 Bed 13 Private MD: ED Physician John Xiao HPI: 08/09 05:00 This 40 yrs old Black Male presents to ER via Ambulatory with complaints of Back Pain, mh7 Hip Pain. 05:02 The patient presents with pain that is chronic, and an injury, and tenderness. The mh7 symptoms are located in the lumbar area and left flank. Onset: The symptoms/episode began/occurred yesterday. The pain radiates to the left hip. Associated signs and symptoms: Pertinent negatives: abdominal pain, chest pain, constipation, dysuria, fever, headache, hematuria, incontinence, nausea, numbness, tingling, urinary retention, vomiting, weakness. The problem was sustained from unknown cause, Neurostimulator battery is not working. Waiting for replacement.. Modifying factors: The patient symptoms are alleviated by nothing, the patient symptoms are aggravated by movement. Severity of symptoms: At their worst the symptoms were moderate, last night, in the emergency department the symptoms are unchanged. The patient has experienced similar episodes in the past, multiple times. Historical: - Allergies: 04:36 Claritin; vc - Home Meds: 04:36 Valium Oral [Active]; Abilify oral oral [Active]; venlafaxine oral oral [Active]; vc Ambien CR oral oral [Active]; hydrocodone-acetaminophen 5-325 mg Oral tab [Active]; - PMHx: 04:36 Anxiety; nerve pain; vc - PSHx: 04:36 Appendectomy; spinal cord stimulator; Cholecystectomy; vc - Immunization history:: Adult Immunizations up to date. - Social history:: Smoking status: Patient denies any tobacco usage or history of. ROS: 05:02 Constitutional: Negative for fever, chills, and weight loss, Eyes: Negative for injury, mh7 pain, redness, and discharge, ENT: Negative for injury, pain, and discharge, Neck: Negative for injury, pain, and swelling, Cardiovascular: Negative for chest pain, palpitations, and edema, Respiratory: Negative for shortness of breath, cough, wheezing, and pleuritic chest pain, Abdomen/GI: Negative for abdominal pain, nausea, vomiting, diarrhea, and constipation, : Negative for injury, bleeding, discharge, and swelling, Skin: Negative for injury, rash, and discoloration, Neuro: Negative for headache, weakness, numbness, tingling, and seizure, Psych: Negative for depression, anxiety, suicide ideation, homicidal ideation, and hallucinations, Allergy/Immunology: Negative for hives, rash, and allergies, Endocrine: Negative for neck swelling, polydipsia, polyuria, polyphagia, and marked weight changes, Hematologic/Lymphatic: Negative for swollen nodes, abnormal bleeding, and unusual bruising. Exam: 05:02 Head/Face: Normocephalic, atraumatic. Eyes: Pupils equal round and reactive to light, mh7 extra-ocular motions intact. Lids and lashes normal. Conjunctiva and sclera are non-icteric and not injected. Cornea within normal limits. Periorbital areas with no swelling, redness, or edema. Neck: Trachea midline, no thyromegaly or masses palpated, and no cervical lymphadenopathy. Supple, full range of motion without nuchal rigidity, or vertebral point tenderness. No Meningismus. Chest/axilla: Normal chest wall appearance and motion. Nontender with no deformity. No lesions are appreciated. Cardiovascular: Regular rate and rhythm with a normal S1 and S2. No gallops, murmurs, or rubs. Normal PMI, no JVD. No pulse deficits. Respiratory: Lungs have equal breath sounds bilaterally, clear to auscultation and percussion. No rales, rhonchi or wheezes noted. No increased work of breathing, no retractions or nasal flaring. 05:02 Skin: Warm, dry with normal turgor. Normal color with no rashes, no lesions, and no evidence of cellulitis. MS/ Extremity: Pulses equal, no cyanosis. Neurovascular intact. Full, normal range of motion. Neuro: Awake and alert, GCS 15, oriented to person, place, time, and situation. Cranial nerves II-XII grossly intact. Motor strength 5/5 in all extremities. Sensory grossly intact. Cerebellar exam normal. Normal gait. Psych: Awake, alert, with orientation to person, place and time. Behavior, mood, and affect are within normal limits. 05:02 Constitutional: The patient appears in no acute distress, alert, awake, uncomfortable. 05:02 Abdomen/GI: Inspection: abdomen appears normal, Bowel sounds: normal, in all quadrants, Palpation: abdomen is soft and non-tender, Rectal exam: the exam is deferred, because of patient request, Indicators: McBurney's point is not tender, Perry's sign is negative, Rovsing's sign is negative, Obturator sign is negative, Psoas sign is negative, Liver: no appreciated palpable abnormalities, Hernia: not appreciated. 05:02 Back: pain, that is moderate, of the lumbar area, ROM is normal, normal spinal alignment noted, CVA tenderness, that is moderate, is noted on the left, muscle spasm, is not present, Straight leg raises: right lower extremity does not illicit pain, left lower extremity illicits pain, at 45 degrees. Vital Signs: 04:28 BP 105 / 85; Pulse 85; Resp 18; Temp 99.4; Pulse Ox 100% on R/A; Weight 85.28 kg; vc Height 5 ft. 11 in. (180.34 cm); Pain 9/10; 06:00 BP 116 / 84; Pulse 63; Resp 17; Pulse Ox 100% on R/A; vc 06:10 Pain 8/10; vc 06:42 BP 116 / 84; Pulse 64; Resp 16; Pulse Ox 99% on R/A; vc 04:28 Body Mass Index 26.22 (85.28 kg, 180.34 cm) vc MDM: 04:38 Patient medically screened. 7 06:52 Differential diagnosis: arthritis, chronic back pain, Hydronephrosis Pyelonephritis 7 Ureterolithiasis Musculoskeletal Pain. Data reviewed: vital signs, nurses notes, old medical records, lab test result(s), CBC, electrolytes, urinalysis, radiologic studies, CT scan. Data interpreted: Pulse oximetry: on room air is 99 %. Interpretation: normal. Counseling: I had a detailed discussion with the patient and/or guardian regarding: the historical points, exam findings, and any diagnostic results supporting the discharge/admit diagnosis, lab results, radiology results, the need for outpatient follow up, to return to the emergency department if symptoms worsen or persist or if there are any questions or concerns that arise at home. Response to treatment: the patient's symptoms have markedly improved after treatment. 08/09 04:39 Order name: Basic Metabolic Panel; Complete Time: :22 [facility] 08/09 04:39 Order name: CBC with Diff; Complete Time: 05:22 [facility] 08/09 04:39 Order name: Hepatic Function; Complete Time: 05:22 [facility] 08/09 04:46 Order name: CT Abd/Pelvis - IV Contrast Only [facility] 08/09 05:12 Order name: Urine Dipstick--Ancillary (enter results); Complete Time: 05:59 mw2 08/09 05:26 Order name: CREATININE WHOLE BLOOD; Complete Time: 05:59 EDMS 08/09 04:39 Order name: IV Saline Lock; Complete Time: 04:50 [facility] 08/09 04:39 Order name: Labs collected and sent; Complete Time: 04:50 [facility] 08/09 04:39 Order name: Urine Dipstick-Ancillary (obtain specimen); Complete Time: 05:08 [facility] Administered Medications: 05:00 Drug: Zofran (Ondansetron) 4 mg Route: IVP; Site: right antecubital; vc 06:13 Follow up: Response: No adverse reaction; Nausea is decreased vc 05:02 Drug: morphine 4 mg {Note: RASS 0 - Awake and alert pain 9/10.} Route: IVP; Site: right vc antecubital; 06:13 Follow up: Response: Pain is unchanged, physician notified; RASS: Alert and Calm (0) vc 05:40 Drug: NS 0.9% 1000 ml Route: IV; Rate: 1000 ml; Site: right antecubital; vc 06:12 Drug: TORadol 30 mg Route: IVP; Site: right antecubital; vc 06:46 Follow up: Response: No adverse reaction; Blood pressure is unchanged vc 06:30 Drug: Lidoderm 5 % (700 mg/patch) 1 patches {Note: applied to left lower back and hip.} vc Route: Topical; Site: wound; 06:46 Drug: Dilaudid 1 mg {Note: RASS-0.} Route: IVP; Site: right antecubital; vc 07:03 Follow up: Response: No adverse reaction vc Disposition: 08/09/20 06:54 Discharged to Home. Impression: Lower Back Pain, Flank Pain. - Condition is Stable. - Discharge Instructions: Back Pain, Adult, [id number], Flank Pain, [id number]. - Medication Reconciliation Form, Thank You Letter, Antibiotic Education, Prescription Opioid Use form. - Follow up: Private Physician; When: 1 - 2 days; Reason: Worsening of condition, Recheck today's complaints, Continuance of care, Re-evaluation by your physician. - Problem is an acute exacerbation. - Symptoms have improved. Signatures: Dispatcher [employer] EDMS Lyric Ballard RN RN John Brown MD MD mh7 Corrections: (The following items were deleted from the chart) 07:03 06:54 08/09/2020 06:54 Discharged to Home. Impression: Lower Back Pain; Flank Pain. vc Condition is Stable. Forms are Medication Reconciliation Form, Thank You Letter, Antibiotic Education, Prescription Opioid Use. Follow up: Private Physician; When: 1 - 2 days; Reason: Worsening of condition, Recheck today's complaints, Continuance of care, Re-evaluation by your physician. Problem is an acute exacerbation. Symptoms have improved. mh7
[2020-08-09 07:22] VITALS: TEMP 99.4
[2020-08-09 07:23] VITALS: BP 116/84
[2020-08-09 07:25] VITALS: O2SAT 99
--- NOTE | 2020-08-09 15:50 | RAD REPORT ---
EXAM DESCRIPTION: CT - Abdomen Pelvis W Contrast - 08/09/2020 5:45 am CLINICAL HISTORY: FLANK PAIN COMPARISON: 07/25/2020 TECHNIQUE: CT of the abdomen and pelvis performed following IV administration of iodinated contras t.. FINDINGS: Lung Bases: The visualized lung bases are clear. Bones: No destructive bone lesions identified. Dorsal generator with epidural leads. Abdomen: Liver: The liver has normal size and density. Minimal intrahepatic biliary dilatation is stable and l ikely related to previous cholecystectomy. Common bile duct has normal caliber. Gallbladder: Prior cholecystectomy. Spleen, Pancreas, and Adrenal Glands: The spleen, pancreas, and adrenal glands are unremarkable. Kidneys: No hydronephrosis or obstructing calculus. Vasculature: The aorta and IVC have normal caliber and position. The portal vein is patent. The pro ximal visceral and renal arteries are patent. Stomach: The stomach and duodenum have normal course. Other: No free intraperitoneal air. No free fluid or lymphadenopathy. Pelvis: Bladder: Urinary bladder is relatively decompressed and otherwise unremarkable. Bowel: No dilated loops of large or small bowel. Appendix: Prior appendectomy. Pelvis: Prostate is not enlarged. IMPRESSION: 1. No acute inflammatory or obstructive process identified. This exam was performed according to our departmental dose-optimization program, which includes autom ated exposure control, adjustment of the mA and/or kV according to patient size and/or use of iterati ve reconstruction technique. Electronically signed by: Angelito Suarez 08/09/2020 6:01 AM CDT Due to temporary technical issues with the PACS/Fluency reporting system, reports are being signed by the in house radiologist without review as a courtesy to ensure prompt reporting. The interpreting r adiologist is fully responsible for the content of the report.
== END 2020-08-09 07:03 | disposition home or self-care (01) ==
LOC: ER 04:05
DX: R10.9 Unspecified abdominal pain (principal); F41.9 Anxiety disorder, unspecified; Z88.8 Allergy status to other drugs, medicaments and biological substances
CPT/HCPCS: 85025; 80048; 36415; 82565; 80076; 81003; 74177; 96375; 96374; 99284; Q9967; J1170; J7030; J2405

== ENCOUNTER 2020-08-15 23:49 | Emergency (ER) | payer OTHER ==
--- OUTSIDE RECORDS SUMMARY | 2020-08-15 23:51 | XMS REPORT | Continuity of Care Document ---
:1980 Author Organization [facility] t Address [address] [place] [address] Care Team Providers Name Role Phone Pcp Primary Care Physician Unavailable Heron DEMPSEY Attending Clinician HERON Attending Clinician Unavailable Pcp Attending Clinician Unavailable Ramona DEMPSEY Attending Clinician William BONDS Attending Clinician Baudilio Fiore MD Attending Clinician Payers Payer Name Policy Policy Number Effective Expiration Source Type Date Date MEDICAIDMEDICAID OF xxxxxxxxx [facility] [place] [facility] Problems This patient has no known problems. Allergies, Adverse Reactions, Alerts Allergy Allergy Status Severity Reaction(s) Onset Inactive Treating Comm ents Source Name Type Date Date Clinician Suzie Romero Active Other (See anxiety [facility] to Comments) 04-30 [facility] adverse [facility]: Medical reaction 00 Center s Social History Social Habit Start Date Stop Date Quantity Comments Source History SDOH Alcohol [facility] Std Drinks [facility] History SDOH Alcohol [facility] Binge [facility] Sex Assigned At [facility] History SDOH Alcohol 2020-08-03 2020-08-03 1 [facility] - Frequency 00:00:00 00:00:00 Medical Center Smoking Status Start Date Stop Date Source Never smoker [facility] Medications Ordered Filled Start Stop Current Ordering Indication Dosage Frequency Signature Comments Components Source Medication Medication Date Date Medication? Clinician (SIG) Name Name venlafaxine 2019-0 Yes 150mg QD Take [address] (EFFEXOR-XR 9-18 mg by [facility] - ) 150 MG 24 08:29: mouth Medic al hr capsule 10 daily. Center ARIPiprazol 2019-0 Yes 10mg QD Take [address] [facility] (ABILIFY) 9-18 by mouth Luke s - 10 MG 08:29: daily. Medical tablet 10 Center butalbit/ac 2020-0 Yes Take by [facility] etamin/caff 9-18 mouth. [facility] - /codeine 08:29: Medical (BUTALBITAL 10 Center -ACETAMINOP -CAF-COD ORAL) diazePAM 2019-0 Yes 10mg Take [address] (VALIUM) 5 9-18 by mouth [facility] - MG tablet 08:26: every 6 Medic al 38 (six) Center hours as needed for Anxiety. budesonide 2019-0 Yes .25mg Q.5D Take 0.[address] (PULMICORT) 9-18 mg by [facility] - 0.25 mg/2 08:24: nebulizati Me dical mL 54 on 2 (two) Center nebulizer times solution daily. ondansetron 2019-0 Yes 4mg Take [address] (ZOFRAN) 4 9-18 by mouth 2 [place] [facility] - MG tablet 08:24: (two) Medical 13 times Center daily as needed for Nausea. zolpidem 2019-0 Yes 12.5mg Take 12.[address] (AMBIEN CR) 9-18 mg by [facility] - 12.5 MG CR 08:23: mouth Medica l tablet 43 every Center night as needed for Insomnia. HYDROcodone 2020-0 Yes 1{tbl} Take [address] -acetaminop 9-18 tablet by [place] [facility] - hen (NORCO 08:23: mouth Medica l 5-325) 21 every 6 Center 5-325 mg (six) per tablet hours as needed for Pain. Vital Signs Vital Name Observation Time Observation Value Comments Source Body height 2020-08-12 08:31:00 182.9 cm [facility] Body weight Measured 2020-08-12 08:31:[address] [facility] BMI 2020-08-12 08:31:00 25.50 kg/m2 [facility] Systolic blood 2020-08-03 13:31:00 124 mm[Hg] [facility] pressure [facility] Diastolic blood 2020-08-03 13:31:00 88 mm[Hg] [facility] S [facility] Heart rate 2020-08-03 13:31:00 89 /min [facility] Respiratory rate 2020-08-03 13:31:00 20 /min [facility] Body temperature 2020-08-03 13:02:00 36[address] [facility] Oxygen saturation in 2020-08-03 13:02:00 100 /min [facility] Arterial blood by Medical Ce nter Pulse oximetry Procedures Procedure Date / Time Performed Performing Clinician [facility] e TRANSFUSION SERVICE 2020-08-13 18:04:04 Provider, Default [facility] REPORT - SCAN Scanning [facility] XR CHEST 2 VIEWS 2020-08-12 15:37:00 Heron Miguel [facility] ECG 12-LEAD 2020-08-12 15:19:21 Unknown, Hl7 Doctor [facility] SARS-COV2/RT-PCR ([facility] & 2020-08-12 15:14:00 Miguel Calderon [facility] REF LABS) [facility] BASIC METABOLIC PANEL 2020-08-12 15:14:00 Miguel Calderon I [facility] (7) [facility] URINALYSIS W/ REFLEX 2020-08-12 15:14:00 Miguel Calderon [facility] URINE CULTURE [facility] APTT 2020-08-12 15:14:00 Heron, Miguel [facility] PROTHROMBIN TIME/INR 2020-08-12 15:14:00 Heron Miguel [facility] TYPE AND SCREEN, 2020-08-12 15:14:00 Miguel Calderon [facility] AUTOMATED [facility] CBC W/PLT COUNT & AUTO 2020-08-12 15:14:00 Miguel Calderon [facility] DIFFERENTIAL [facility] Plan of Care Planned Activity Planned Date Details Comments Source Future Scheduled Test 2020-07-[address] [facility] (#1) [code = [facility] INFLUENZA VACCINE (#1)] Future Scheduled Test [facility] (procedure) [code = [facility] [id number]] Future Appointment 2020-08-17 Miguel Calderon [facility] - 10:15:00 , [address] ; [address], [place] [address] Encounters Start End Encounter Admission Attending Care Care Encounter Source Date/Time Date/Time Type Type Clinicians Facility Department ID 2020-02-19 2020-02-19 Emergency [facility] [id number] 20:56:33 21:37:00 Fabien Rico [id number] [place] [id number] [place] [id number] 2020-02-13 2020-02-13 Emergency [facility], [facility] [id number] 05:38:10 06:52:00 Jayden Baudilio Rico [id number] [employer] [id number] [place] [id number] Results Test Description Test Time Test Comments Results Result [facility] e Comments ECG 12 lead 2020-07-27 Interface, External Ris [facility] In - 08/14/2020 4:27 [place] - 16:27:41 PM CDTVentricular Rate Me dical 77 BPMAtrial Rate 77 Cent er BPMP-R Interval 120 msQRS Duration 88 msQ-T Interval 376 msQTC Calculation(Bazett) 425 msP [place] 53 degreesR [place] 43 degreesT [place] 37 degreesNormal sinus rhythmNormal ECGNo previous ECGs availableConfirmed by MD RIK, SARAH ([id number]) on 08/14/2020 4:27:36 PM SARS-CoV2/RT-PCR ([facility]) 2020-08-13 22:54:00 Test Item Value Reference Range Interpretation Comme nts SARS-COV2/RT-PCR (test code = Negative Not Detected, 90528-4) Negative, See external report for linked test SARS-COV-2 PERFORMING LAB [facility] (test code = 92940-1) ENE (test code = ENE) Negative result for this test determines that SARS-CoV-2 RNA was not present in the specimen above the Limit of Detection (LOD). However, Negative results do not preclude SARS-CoV-2 infection and should not be used as the sole basis for treatment or patient management decisions. Negative results must be combined with clinical observations, patient history, and epidemiological information. A false negative result may occur if a specimen is improperly collected, transported or handled. A false negative result should be considered if patient's recent exposures or clinical presentation indicate that COVID-19 (SARS-CoV-2) is likely and diagnostic tests for other causes of illness are negative. Re-testing should be considered in cases of suspected false negatives. The limit of detection for this assay is 800 copies/mL. This SARS CoV-2 test is a real-time RT-PCR test intended for the qualitative detection of nucleic acid from SARS-CoV-2 in a nasopharyngeal swab specimen collected from individuals suspected of COVID-19 by their healthcare provider. This test has not been Food and Drug Administration (FDA) cleared or approved. This is a modified version of an approved Emergency Use Authorization (EUA) and is in the process of review by the FDA. Once authorized by the FDA, the issued EUA will be effective until the declaration that circumstances exist justifying the authorization of the emergency use of in vitro diagnostic tests for detection and/or diagnosis of COVID-19 is terminated under Section 564(b)(2) of the Act or the EUA is revoked under Section 564(g) of the Act. Fact Sheet for Healthcare Providers:https://www.Buyt.In. com/sites/default/files/produ ct/documents/Fact_Sheet_HC_Pr nsycqrm_Gyrk_IYPK-VtZ-8.pdf Fact Sheet for Healthcare Patients:https://www.Buyt.In.Gust om/sites/default/files/produc t/documents/Fact_Sheet_Tory ju_Kmoq_XBFS-WsI-9.pdf Performing Laboratory:[facility] [place] [address] [facility])2020-08-13 22:54:00 Test Item Value Reference Range Interpretation Comments SARS-COV2/RT-PCR (test Negative Not Detected, Negative, code = 2809168) See external report for linked test SARS-COV-2 PERFORMING LAB [facility] (test code = 9731919) Negative result for this test determines that SARS-CoV-2 RNA was not present in the specimen above the Limit of Detection (LOD). However, Negative results do not preclude SARS-CoV-2 infection and should not be used as the sole basis for treatment or patient management decisions. Negative results mustbe combined with clinical observations, patient history, and epidemiological information. A false negative result may occur if a specimen is improperly collected, transported or handled. A false negative result should be considered if patient's recent exposures or clinical presentation indicate that COVID-19 (SARS-CoV-2) is likely and diagnostic tests for other causes of illness are negative. Re-testing should be considered in cases of suspected false negatives.The limit of detection for this assay is 800 copies/mL.This SARS CoV-2 test is a real-time RT-PCR test intended for the qualitative detection of nucleic acid from SARS-CoV-2 in a nasopharyngeal swab specimen collected from individuals susp ected of COVID-19 by their healthcare provider.This test has not been Food and Drug Administration (FDA) cleared or approved. This is a modified version of an approved Emergency Use Authorization (EUA) and is in the process of review by the FDA. Once authorized by the FDA, the issued EUA will be effective until the declaration that circumstances exist justifying the authorization of the emergency use of in vitro diagnostic tests for detection and/or diagnosis of COVID-19 is terminated under Section 564(b)(2) of the Act or the EUA is revoked under Section 564(g) of the Act.Fact Sheet for Healthcare Providers:https://www.Buyt.In.com/sites/default/files/product/documents/Fact_Shee m_YU_Hinkeikpk_Lwek_UYID-PwK-0.pdfFact Sheet for Healthcare Patients:https://www.Buyt.In.com/sites/default/files/product/ documents/Vwbu_Yszyn_Zaixeoyb_Rzmc_KJIO-GrM-6.pdfPerforming Laboratory:[place] [address], [place] [address]KEY, CHEST, 2 VIEWS 2020-08-12 16:53:00Reason for exam:->Malfunction of spinal cord stimulator FINAL REPORT TECHNIQUE: Frontal and lateral views of the chest. INDICATION: 40-year-old man with malfunction of spinal cord stimulator. COMPARISON: None. FINDINGS: LINES/TUBES: Partially visualized epidural leads project over the midline of the thoracic spine at the T8-T9 level. LUNGS: Lungs are well inflated and clear. PLEURA: No pleural effusion or pneumothorax. HEART AND MEDIASTINUM: Cardiomediastinal silhouette is within normal limits. BONES AND SOFT TISSUES: Bones are unremarkable. Clips in the right upper extremity.. IMPRESSION:No acute cardiopulmonary abnormalities. Signed: Meredith Peña MDReport Verified Date/Time: 08/12/2020 16:53:49 XR chest 2 [id number] 16:53:00Interface, External Ris In - 08/12/2020 4:56 PM CDTFINAL REPORT TECHNIQUE: Frontal and lateral views of the chest. INDICATION: 40-year-old man with malfunction of spinal cord stimulator. COMPARISON: None. FINDINGS: LINES/TUBES: Partially visualized epidural leads project over the midline of the thoracic spine at the T8-T9 level. LUNGS: Lungs are well inflated and clear. PLEURA: No pleural effusion or pneumothorax. HEART AND MEDIASTINUM: Cardiomediastinal silhouette is withinnormal limits. BONES AND SOFT TISSUES: Bones are unremarkable. Clips in the right upper extremity..IMPRESSION:No acute cardiopulmonary abnormalities. Signed: Meredith Peña MDReport Verified Date/Time: 08/12/2020 16:53:49 [facility], [id number] 16:35:00 Test Item Value Reference Range Interpretation Comments ABO/RH AUTOMATED (BEAKER) (test AB POSITIVE code = 2260) Ab Scrn (test code = 890-4) NEGATIVE [facility]scopic + Reflex to Culture 2020-08-12 15:52:00 Test Item Value Reference Range Interpretation Comments Color, UA (test code = Yellow 5778-6) Clarity, UA (test code = Clear 5767-9) Specific [place], UA (test 1.027 1.001-1.035 code = 5811-5) pH, UA (test code = 6.0 5.0-8.0 5803-2) Protein, UA (test code = Negative Negative 47385-8) Glucose, UA (test code = Negative Negative 365) Ketones, UA (test code = Negative Negative 2514-8) Bilirubin, UA (test code = Negative Negative 92396-8) Blood, UA (test code = Negative Negative 39304-2) Nitrite, UA (test code = Negative Negative 5802-4) Leukocytes, UA (test code Trace Negative A = 5799-2) Urobilinogen, UA (test 0.2 mg/dL 0.2-1 code = 99592-9) RBC, UA (test code = 0 /HPF 87478-4) WBC, UA (test code = <1 /HPF 5821-4) Squam Epithel, UA (test <1 /HPF code = 23322-5) Specimen Source (test code = 2795) ENE (test code = ENE) Consumer Studies Professor ID - [auto]Consumer Studies Professor ID - tech Lab Interpretation (test Abnormal code = 68875-4) [facility]/ REFLEX URINE [id number] 15:52:00 Test Item Value Reference Range Interpretation Comments COLOR (BEAKER) (test code = 470) Yellow CLARITY (BEAKER) (test code = 469) Clear SPECIFIC GRAVITY UA (BEAKER) (test 1.027 1.001-1.035 code = 468) PH UA (BEAKER) (test code = 467) 6.0 5.0-8.0 PROTEIN UA (BEAKER) (test code = Negative Negative 464) GLUCOSE UA (BEAKER) (test code = Negative Negative 365) KETONES UA (BEAKER) (test code = Negative Negative 371) BILIRUBIN UA (BEAKER) (test code = Negative Negative 462) BLOOD UA (BEAKER) (test code = 461) Negative Negative NITRITE UA (BEAKER) (test code = Negative Negative 465) LEUKOCYTE ESTERASE UA (BEAKER) Trace Negative A (test code = 466) UROBILINOGEN UA (BEAKER) (test code 0.2 mg/dL 0.2-1.0 = 463) RBC UA (BEAKER) (test code = 519) 0 /HPF WBC UA (BEAKER) (test code = 520) < /HPF SQUAMOUS EPITHELIAL (BEAKER) (test < /HPF code = 516) SOURCE(BEAKER) (test code = 2795) Consumer Studies Professor ID - [auto]Consumer Studies Professor [facility] Metabolic [id number] 15:50:00 Test Item Value Reference Range Interpretation Comments Sodium (test code = 143 meq/L 356-263 2360-2) Potassium (test code = 3.8 meq/L 3.5-5.1 2823-3) Chloride (test code = 106 meq/L 98-107 2075-0) CO2 (test code = 30 meq/L 22-29 H 2027-9) BUN (test code = 12 mg/dL 7-21 3094-0) Creatinine (test code 1.24 mg/dL 0.57-1.25 = 2160-0) Glucose (test code = 97 mg/dL 70-105 2345-7) Calcium (test code = 9.0 mg/dL 8.4-10.2 16061-2) EGFR (test code = 79 mL/min/1.73 [place] [address]-7) NOT ACCURATE CREATININE CLEARANCE IN PREDICTING GLOMERULAR FILTRATION RATE . ESTIMATED GFR I S NOT APPLICABLE FOR DIALYSIS PATIENTS. ENE (test code = ENE) Consumer Studies Professor ID - BS Lab Interpretation Abnormal (test code = 78977-6) [facility] METABOLIC [id number] 15:50:00 Test Item Value Reference Range Interpretation Comments SODIUM (BEAKER) 143 meq/L 136-145 (test code = 381) POTASSIUM (BEAKER) 3.8 meq/L 3.5-5.1 (test code = 379) CHLORIDE (BEAKER) 106 meq/L 98-107 (test code = 382) CO2 (BEAKER) (test 30 meq/L 22-29 H code = 355) BLOOD UREA NITROGEN 12 mg/dL 7-21 (BEAKER) (test code = 354) CREATININE (BEAKER) 1.24 mg/dL 0.57-1.25 (test code = 358) GLUCOSE RANDOM 97 mg/dL 70-105 (BEAKER) (test code = 652) CALCIUM (BEAKER) 9.0 mg/dL 8.4-10.2 (test code = 697) EGFR (BEAKER) (test 79 mL/min/1.73 ESTIMA THALIA GFR IS code = 1092) sq m NOT ACCURATE CREATININE CLEARANCE IN PREDICTING GLOMERULAR FILTRATION RATE . ESTIMATED GFR I S NOT APPLICABLE FOR DIALYSIS PATIEN TS. Consumer Studies Professor ID - [id number] 15:49:00 Test Item Value Reference Range Interpretation Comments PTT (test code = 04203-9) 33.7 22.5- 36.0 seconds Lab Interpretation (test code = Normal 28764-4) [facility] 15:49:00 Test Item Value Reference Range Interpretation Comments PARTIAL THROMBOPLASTIN TIME 33.7 seconds 22.5-36.0 (BEAKER) (test code = 760) Prothrombin time/[id number] 15:48:00 Test Item Value Reference Range Interpretation Comments Protime (test code = 13.4 11.9- 14.2 5902-2) seconds INR (test code = 1.05 <=5.90 6301-6) ENE (test code = ENE) Effective 04/22/2019: PT Reference Range ChangeNew: 11.9-14.2 Previous: 11.7-14.7 RECOMMENDED COUMADIN/WARFARIN INR THERAPY RANGESSTANDARD DOSE: 2.0-3.0 Includes: PROPHYLAXIS for venous thrombosis, systemic embolization; TREATMENT for venous thrombosis and/or pulmonary embolus.HIGH RISK: Target INR is 2.5-3.5 for patients wiht mechanical heart valves. Lab Interpretation Normal (test code = 16211-1) [facility]/[id number] 15:48:00 Test Item Value Reference Range Interpretation Comments PROTIME (BEAKER) (test code = 13.4 seconds 11.9-14.2 759) INR (BEAKER) (test code = 370) 1.05 <=5.90 Effective 04/22/2019: PT Reference Range ChangeNew: 11.9-14.2 Previous: 11.7- 14.7RECOMMENDED COUMADIN/WARFARIN INR THERAPY RANGESSTANDARD DOSE: 2.0-3.0 Includes: PROPHYLAXIS for venous thrombosis, systemic embolization; TREATMENT for venous thrombosis and/or pulmonary embolus.HIGH RISK: Target INR is2.5-3.5 for patients wiht mechanical heart valves.CBC with platelet count + automated [id number] 15:38:00 Test Item Value Reference Range Interpretation Comments WBC (test code = 6690-2) 5.9 3.5- 10.5 K/L RBC (test code = 789-8) 5.45 4.63- 6.08 M/L MCHC (test code = 786-4) 31.2 32.3- 36.5 GM/DL L Hematocrit (test code = 4544-3) 49.7 % 40.1-51 MCV (test code = 787-2) 91.2 fL 79-92.2 MCH (test code = 785-6) 28.4 pg 25.7-32.2 RDW (test code = 788-0) 13.2 % 11.6-14.4 Platelets (test code = 777-3) 232 150- 450 K/CU MM MPV (test code = 80920-6) 11.0 fL 9.4-12.4 nRBC (test code = 413) 0 0- 0 /100 WBC % Neutros (test code = 429) 67 % % Lymphs (test code = 430) 27 % % Monos (test code = 431) 6 % % Eos (test code = 432) 1 % % Baso (test code = 437) 0 % # Neutros (test code = 670) 3.90 1.78- 5.38 K/L # Lymphs (test code = 414) 1.57 1.32- 3.57 K/L # Monos (test code = 415) 0.33 0.30- 0.82 K/L # Eos (test code = 416) 0.03 0.04- 0.54 K/L L # Baso (test code = 417) 0.01 0.01- 0.08 K/L Immature Granulocytes-Relative 0 % 0-1 (test code = 2801) Lab Interpretation (test code = Abnormal 61272-3) [facility] W/[facility]T COUNT & AUTO [id number] 15:38:00 Test Item Value Reference Range Interpretation Comments WHITE BLOOD CELL COUNT (BEAKER) 5.9 K/ L 3.5-10.5 (test code = 775) RED BLOOD CELL COUNT (BEAKER) 5.45 M/ L 4.63-6.08 (test code = 761) HEMOGLOBIN (BEAKER) (test code = 15.5 GM/DL 13.7-17.5 410) HEMATOCRIT (BEAKER) (test code = 49.7 % 40.1-51.0 411) MEAN CORPUSCULAR VOLUME (BEAKER) 91.2 fL 79.0-92.2 (test code = 753) MEAN CORPUSCULAR HEMOGLOBIN 28.4 pg 25.7-32.2 (BEAKER) (test code = 751) MEAN CORPUSCULAR HEMOGLOBIN CONC 31.2 GM/DL 32.3-36.5 L (BEAKER) (test code = 752) RED CELL DISTRIBUTION WIDTH 13.2 % 11.6-14.4 (BEAKER) (test code = 412) PLATELET COUNT (BEAKER) (test 232 K/CU MM 150-450 code = 756) MEAN PLATELET VOLUME (BEAKER) 11.0 fL 9.4-12.4 (test code = 754) NUCLEATED RED BLOOD CELLS 0 /100 WBC 0-0 (BEAKER) (test code = 413) NEUTROPHILS RELATIVE PERCENT 67 % (BEAKER) (test code = 429) LYMPHOCYTES RELATIVE PERCENT 27 % (BEAKER) (test code = 430) MONOCYTES RELATIVE PERCENT 6 % (BEAKER) (test code = 431) EOSINOPHILS RELATIVE PERCENT 1 % (BEAKER) (test code = 432) BASOPHILS RELATIVE PERCENT 0 % (BEAKER) (test code = 437) NEUTROPHILS ABSOLUTE COUNT 3.90 K/ L 1.78-5.38 (BEAKER) (test code = 670) LYMPHOCYTES ABSOLUTE COUNT 1.57 K/ L 1.32-3.57 (BEAKER) (test code = 414) MONOCYTES ABSOLUTE COUNT (BEAKER) 0.33 K/ L 0.30-0.82 (test code = 415) EOSINOPHILS ABSOLUTE COUNT 0.03 K/ L 0.04-0.54 L (BEAKER) (test code = 416) BASOPHILS ABSOLUTE COUNT (BEAKER) 0.01 K/ L 0.01-0.08 (test code = 417) IMMATURE GRANULOCYTES-RELATIVE 0 % 0-1 PERCENT (BEAKER) (test code = 2801)
--- OUTSIDE RECORDS SUMMARY | 2020-08-15 23:51 | XMS REPORT | Clinical Summary ---
:1980 Author Organization [facility] Address [address] [place] [address] Care Team Providers Name Role Phone Pcp Primary Care Provider Unavailable Allergies Active Allergy Reactions Severity Noted Date Comments Loratadine Other (See Comments) Low 2008 anxiety Medications Medication Sig Dispensed Refills Start Date End Date Status HYDROcodone-acetamin Take 1 tablet by 0 Active ophen (NORCO 5-325) mouth every 6 (six) 5-325 mg per tablet hours as needed for Pain. zolpidem (AMBIEN CR) Take 12.5 mg by 0 Active 12.5 MG CR tablet mouth every night as needed for Insomnia. ondansetron (ZOFRAN) Take 4 mg by mouth 2 0 Active 4 MG tablet (two) times daily as needed for Nausea. budesonide Take 0.25 mg by 0 Act robbi (PULMICORT) 0.25 nebulization 2 (two) mg/2 mL nebulizer times daily. solution diazePAM (VALIUM) 5 Take 10 mg by mouth 0 Active MG tablet every 6 (six) hours as needed for Anxiety. venlafaxine Take 150 mg by mouth 0 Active (EFFEXOR-XR) 150 MG daily. 24 hr capsule ARIPiprazole Take 10 mg by mouth 0 Active (ABILIFY) 10 MG daily. tablet butalbit/acetamin/ca Take by mouth. 0 Active ff/codeine (BUTALBITAL-ACETAMIN OP-CAF-COD ORAL)Indications: for migraines Active Problems Not on file Encounters Date Type Specialty Care Team Description 08/12/2020 Hospital Encounter Charbel Calderon MD 08/12/2020 Hospital Encounter Cardiology Charbel Calderon MD 08/12/2020 Hospital Encounter Pre-Admission Testing Kvng Pre-op testing; MD Special josé miguel Riverai kirsten examination for viral disease 08/12/2020 Hospital Encounter Pre-Admission Testing Charbel Calderon MD 08/12/2020 Outside Orders Pcp, No 08/12/2020 Orders Only Neurosurgery Special mickey Calderon examination for viral disease (Primary Dx); MD Miguel Pre-op testing 08/12/2020 Orders Only Neurosurgery Miguel Calderon MD 08/12/2020 Orders Only Neurosurgery Miguel Calderon MD 08/12/2020 Travel 08/03/2020 Emergency Emergency Medicine [place], Chronic l ow back MD Will pain, unspecifi ed back pain laterality, unspecified whe ther sciatica presen t (Primary Dx) 08/03/2020 Travel after 08/15/2019 Social History Tobacco Use Types Packs/Day Years [...] - - Weight 85.3 kg (188 lb) 08/12/2020 8:31 AM CDT Height 182.9 cm (6') 08/12/2020 8:31 AM CDT Body Mass Index 25.5 08/12/2020 8:31 AM CDT Plan of Treatment Date Type Specialty Care Team Description 08/17/2020 Hospital Encounter Miguel Calderon MD [address] [place], [place] [address] [phone] 08/17/2020 Surgery Miguel Calderon REVISIO N/ REPLACEMENT,SPINAL [address] NE[address]ATOR LEAD(S) 9th Fl [address] [place], [place] [address] [phone] Health Maintenance Due Date Last Done Comments LIPID PANEL 2017 INFLUENZA VACCINE (#1) 2020 Procedures Procedure Name Priority Date/Time Associated Comments Diagnosis TRANSFUSION SERVICE 08/13/2020 6:04 REPORT - SCAN PM CDT XR CHEST 2 VIEWS Routine 08/12/2020 3:37 Pre-op testing Resul ts for this PM CDT procedure are i n the results section. ECG 12-LEAD Routine 08/12/2020 3:19 PM CDT Procedure Note - Interface, External Ris In - 08/12/2020 5:03 PM CDT Ventricular Rate 77 BPM Atrial Rate 77 BPM P-R Interval 120 ms QRS Duration 88 ms Q-T Interval 376 ms QTC Calculation(Bazett) 425 ms P [place] 53 degrees R [place] 43 degrees T [place] 37 degrees Normal sinus rhythm Normal ECG No previous ECGs available ECG 12-LEAD STAT 08/12/2020 3:19 PM Pre-op testing Result s for this CDT procedure are i n the results section. CBC W/PLT COUNT & Routine 08/12/2020 3:14 PM Pre-op testing R esults for this AUTO DIFFERENTIAL CDT procedure are in the results section. TYPE AND SCREEN, Routine 08/12/2020 3:14 PM Pre-op testing Re sults for this AUTOMATED CDT procedure are i n the results section. PROTHROMBIN TIME/INR Routine 08/12/2020 3:14 PM Pre-op testin g Results for this CDT procedure are i n the results section. APTT Routine 08/12/2020 3:14 PM Pre-op testing Result s for this CDT procedure are i n the results section. URINALYSIS W/ REFLEX Routine 08/12/2020 3:14 PM Pre-op testin g Results for this URINE CULTURE CDT procedure are in the results section. CBC W/PLT COUNT & Routine 08/12/2020 3:14 PM Pre-op testing R esults for this AUTO DIFFERENTIAL CDT procedure are in the results section. BASIC METABOLIC PANEL Routine 08/12/2020 3:14 PM Pre-op testi ng Results for this (7) CDT procedure are i n the results section. SARS-COV2/RT-PCR Routine 08/12/2020 3:14 PM Special screening Results for this ([facility] REF LABS) CDT examination for procedu re are in viral disease the results section. after 08/15/2019 Results TRANSFUSION SERVICE REPORT - SCAN (08/13/2020 6:04 PM CDT) Narrative Performed At This result has an attachment that is no t available. XR chest 2 views (08/12/2020 3:37 PM CDT) Specimen Narrative Performed At FINAL REPORT [facility] TECHNIQUE: Frontal and lateral views of the chest. INDICATION: 40-year-old man with malfunc tion of spinal cord stimulator. COMPARISON: None. FINDINGS: LINES/TUBES: Partially visualized epidur al leads project over the midline of the thoracic spine at the T8- T9 level. LUNGS: Lungs are well inflated and clear . PLEURA: No pleural effusion or pneumotho rax. HEART AND MEDIASTINUM: Cardiomediastinal silhouette is within normal limits. BONES AND SOFT TISSUES: Bones are unrema rkable. Clips in the right upper extremity.. IMPRESSION: No acute cardiopulmonary abnormalities. Signed: Meredith Peña MD Report Verified Date/Time:08/12/2020 16:53:49 Procedure Note Interface, External Ris In - 08/12/2020 4:56 PM CDT FINAL REPORT TECHNIQUE: Frontal and lateral views of the chest. INDICATION: 40-year-old man with malfunc tion of spinal cord stimulator. COMPARISON: None. FINDINGS: LINES/TUBES: Partially visualized epidur al leads project over the midline of the thoracic spine at the T8- T9 level. LUNGS: Lungs are well inflated and clear . PLEURA: No pleural effusion or pneumotho rax. HEART AND MEDIASTINUM: Cardiomediastinal silhouette is within normal limits. BONES AND SOFT TISSUES: Bones are unrema rkable. Clips in the right upper extremity.. IMPRESSION: No acute cardiopulmonary abnormalities. Signed: Meredith Peña MD Report Verified Date/Time: 08/12/2020 1 6:53:49 Performing Organization Address City/[facility]/Zipcode Phone Number GE RIS ECG 12 lead (08/12/2020 3:19 PM CDT) Specimen Narrative Performed At Ventricular Rate 77 BPM GE MUSE Atrial Rate 77 BPM P-R Interval 120 ms QRS Duration 88 ms Q-T Interval 376 ms QTC Calculation(Bazett) 425 ms P [place] 53 degrees R [place] 43 degrees T [place] 37 degrees Normal sinus rhythm Normal ECG No previous ECGs available Confirmed by MD JOLLY YOCHAI ([id number]) on 08/14/2020 4:27:36 PM Procedure Note Interface, External Ris In - 08/14/2020 4:27 PM CDT Ventricular Rate 77 BPM Atrial Rate 77 BPM P-R Interval 120 ms QRS Duration 88 ms Q-T Interval 376 ms QTC Calculation(Bazett) 425 ms P [place] 53 degrees R [place] 43 degrees T [place] 37 degrees Normal sinus rhythm Normal ECG No previous ECGs available Confirmed by MD JOLLY YOCHAI ([id number]) on 08/14/2020 4:27:36 PM Performing Organization Address [facility] Phone Number GE MUSE SARS-CoV2/RT-PCR (HS & Ref Labs) (08/12/2020 3:14 PM CDT) SARS-COV2/RT-PCR Negative Not Detected, Negative, [facility] See external report for MEDICAL CENTER linked test SARS-COV-2 PERFORMING LAB [facility] Specimen Other Narrative Performed At Negative result for this test determines that [facility] SARS-CoV-2 RNA was not present in the specimen above the Limit of Detection (LOD).However, Negative results do not preclude SARS-CoV-2 infection and should not be used as the sole basis for treatment or patient management decisions. Negative results must be combined with clinical observations, patient history, and epidemiological information. A false negative result may occur if a specimen is improperly collected, transported or handled.A false negative result should be considered if patient's recent exposures or clinical presentation indicate that COVID-19 (SARS-CoV-2) is likely and diagnostic tests for other causes of illness are negative.Re-testing should be considered in cases of suspected [...] Food and Drug Administration (FDA) cleared or approved.This is a modified version of an approved [...] of the Act. Fact Sheet for Healthcare Providers: https://www.[employer]/sites/default/files/pro duct/documents/Fact_Sheet_HC_Providers_Lyra_SA RS-CoV-2.pdf Fact Sheet for Healthcare Patients: https://www.[employer]/sites/default/files/pro duct/documents/Fact_Sheet_Patients_Lyra_SARS-C oV-2.pdf Performing Laboratory: [place] [address] Performing Organization Address City/State/[place] [address] CENTER Urinalysis w/Microscopic + Reflex to Culture (08/12/2020 3:14 PM CDT) Color, UA Yellow [facility] Clarity, UA Clear [facility] Specific [place], UA 1.027 1.001 - 1.035 [facility] pH, UA 6.0 5.0 - 8.0 [facility] Protein, UA Negative Negative [facility] Glucose, UA Negative Negative [facility] Ketones, UA Negative Negative [facility] Bilirubin, UA Negative Negative [facility] Blood, UA Negative Negative [facility] Nitrite, UA Negative Negative [facility] Leukocytes, UA Trace (A) Negative [facility] Urobilinogen, UA 0.2 0.2 - 1.0 mg/dL [facility] RBC, UA 0 /HPF [facility] WBC, UA <1 /HPF [facility] Squam Epithel, UA <1 /HPF [facility] Specimen Source [facility] Specimen Urine Narrative Performed At [employer] Filler ID - [auto] [facility] [employer] Filler ID - tech Performing Organization Address City/[facility] Phone Number [address] [address] CENTER Type and screen, automated (08/12/2020 3:14 PM CDT) ABO/RH AUTOMATED (BEAKER) AB POSITIVE [facility] Ab Scrn NEGATIVE [facility] Specimen Blood Performing Organization Address City/[facility]/Zipcode Phone Number [address] [address] CBC with platelet count + automated diff (08/12/2020 3:14 PM CDT) WBC 5.9 3.5 - 10.5 K/L [facility] RBC 5.45 4.63 - 6.08 M/L [facility] Hemoglobin 15.5 13.7 - 17.5 GM/DL [facility] Hematocrit 49.7 40.1 - 51.0 % [facility] MCV 91.2 79.0 - 92.2 fL [facility] MCH 28.4 25.7 - 32.2 pg [facility] MCHC 31.2 (L) 32.3 - 36.5 GM/DL [facility] RDW 13.2 11.6 - 14.4 % [facility] Platelets 232 150 - 450 K/CU MM [facility] MPV 11.0 9.4 - 12.4 fL [facility] nRBC 0 0 - 0 /100 WBC [facility] % Neutros 67 % [facility] % Lymphs 27 % [facility] % Monos 6 % [facility] % Eos 1 % [facility] % Baso 0 % [facility] # Neutros 3.90 1.78 - 5.38 K/L [facility] # Lymphs 1.57 1.32 - 3.57 K/L [facility] # Monos 0.33 0.30 - 0.82 K/L [facility] # Eos 0.03 (L) 0.04 - 0.54 K/L [facility] # Baso 0.01 0.01 - 0.08 K/L [facility] Immature Granulocytes-Relative 0 0 - 1 % C HI [facility] Specimen Blood Performing Organization Address City/State/Zipcode Phone Number [address] [address] CENTER aPTT (08/12/2020 3:14 PM CDT) PTT 33.7 22.5 - 36.0 seconds [facility] Specimen Blood Performing Organization Address City/[facility]/Zipcode Phone Number [address] [phone] [place] Prothrombin time/INR (08/12/2020 3:14 PM CDT) Protime 13.4 11.9 - 14.2 seconds [facility] INR 1.05 <=5.90 [facility] Specimen Blood Narrative Performed At Effective 04/22/2019: PT Reference Range [facility] Change New: 11.9-14.2Previous: 11.7-14.7 RECOMMENDED COUMADIN/WARFARIN INR THERAPY RANGES STANDARD DOSE: 2.0-3.0Includes: PROPHYLAXIS for venous thrombosis, systemic embolization; TREATMENT for venous thrombosis and/or pulmonary embolus. HIGH RISK: Target INR is 2.5-3.5 for patients wiht mechanical heart valves. Performing Organization Address City/State/Zipcode Phone Number [facility] [address] [place] [address] [place] Basic Metabolic Panel (08/12/2020 3:14 PM CDT) Sodium 143 136 - 145 meq/L [facility] Potassium 3.8 3.5 - 5.1 meq/L [facility] Chloride 106 98 - 107 meq/L [facility] CO2 30 (H) 22 - 29 meq/L [facility] BUN 12 7 - 21 mg/dL [facility] Creatinine 1.24 0.57 - 1.25 mg/dL [facility] Glucose 97 70 - 105 mg/dL [facility] Calcium 9.0 8.4 - 10.2 mg/dL [facility] EGFR 79Comment: ESTIMATED GFR IS mL/min/1.73 sq m [facility] NOT ACCURATE [facility] CLEARANCE IN PREDICTING GLOMERULAR FILTRATION RATE. ESTIMATED GFR IS NOT APPLICABLE FOR DIALYSIS PATIENTS. Specimen Blood Narrative Performed At [employer] Filler ID - BS [facility] Performing Organization Address City/State/Zipcode Phone Number [facility] [address] [place] [address] CENTER after 08/15/2019 Insurance Payer Benefit Plan / Group Subscriber ID Type Phone A ddress MEDICAID MEDICAID [facility] xxxxxxxxx Medicaid
[2020-08-16] MEDS ORDERED: dexAMETHasone 10 MG/ML VIAL ONE (00:46)
[2020-08-16] MEDS ORDERED: HYDROMORPHONE HCL 1 MG/ML INJ ONE (00:46)
[2020-08-16] MEDS ORDERED: KETOROLAC 30 MG/ML INJ ONE (00:46)
--- NOTE | 2020-08-16 01:58 | EDPHYS ---
Physician Documentation [facility] Name: Harris Alanis Age: 40 yrs Sex: Male : 1980 Arrival Date: 08/15/2020 Time: 23:51 Bed 18 Private MD: ED Physician Linus Franks HPI: 08/16 00:54 This 40 yrs old Black Male presents to ER via Unassigned with complaints of low back jr8 pain. 00:54 Patient stated that he has a nerve stimulator that is now non functioning. Stated that jr8 he is set to have surgery on Saturday to replace the stimulator. Since it has stopped working has had marked increase in pain with decreased mobility. Stated that he has fallen multiple times today but without injuring himself. Came to ED tonight because he could not take the pain any longer . 01:44 Severity of symptoms: At their worst the symptoms were moderate in the emergency jr8 department the symptoms are unchanged. The patient has experienced similar episodes in the past, chronically. The patient has been recently seen by a physician:. - Immunization history: Last tetanus immunization: unknown. ROS: 01:44 Eyes: Negative for injury, pain, redness, and discharge, ENT: Negative for injury, jr8 pain, and discharge, Neck: Negative for injury, pain, and swelling, Cardiovascular: Negative for chest pain, palpitations, and edema, Respiratory: Negative for shortness of breath, cough, wheezing, and pleuritic chest pain, Abdomen/GI: Negative for abdominal pain, nausea, vomiting, diarrhea, and constipation, MS/Extremity: Negative for injury and deformity, Skin: Negative for injury, rash, and discoloration, Neuro: Negative for headache, weakness, numbness, tingling, and seizure. 01:44 Back: Positive for pain at rest, pain with movement, radiated pain, of the low back area. Exam: 01:44 Eyes: Pupils equal round and reactive to light, extra-ocular motions intact. Lids and jr8 lashes normal. Conjunctiva and sclera are non-icteric and not injected. Cornea within normal limits. Periorbital areas with no swelling, redness, or edema. ENT: Nares patent. No nasal discharge, no septal abnormalities noted. Tympanic membranes are normal and external auditory canals are clear. Oropharynx with no redness, swelling, or masses, exudates, or evidence of obstruction, uvula midline. Mucous membranes moist. Neck: Trachea midline, no thyromegaly or masses palpated, and no cervical lymphadenopathy. Supple, full range of motion without nuchal rigidity, or vertebral point tenderness. No Meningismus. Cardiovascular: Regular rate and rhythm with a normal S1 and S2. No gallops, murmurs, or rubs. Normal PMI, no JVD. No pulse deficits. Respiratory: Lungs have equal breath sounds bilaterally, clear to auscultation and percussion. No rales, rhonchi or wheezes noted. No increased work of breathing, no retractions or nasal flaring. Abdomen/GI: Soft, non-tender, with normal bowel sounds. No distension or tympany. No guarding or rebound. No evidence of tenderness throughout. Skin: Warm, dry with normal turgor. Normal color with no rashes, no lesions, and no evidence of cellulitis. MS/ Extremity: Pulses equal, no cyanosis. Neurovascular intact. Full, normal range of motion. Neuro: Awake and alert, GCS 15, oriented to person, place, time, and situation. Cranial nerves II-XII grossly intact. Motor strength 5/5 in all extremities. Sensory grossly intact. Cerebellar exam normal. 01:44 Back: pain, that is moderate, of the low back area, ROM is painful, normal spinal alignment noted, CVA tenderness, is absent. Vital Signs: 00:08 BP 131 / 98; Pulse 39; Temp 98.3(O); Pulse Ox 99% on R/A; Weight 88.45 kg; Height 5 ft. tt3 11 in. (180.34 cm); 01:00 BP 123 / 76; Pulse 69; Resp 16; Pulse Ox 98% on R/A; Pain 7/10; fu 01:30 BP 131 / 87; Pulse 68; Resp 18; Pulse Ox 97% on R/A; Pain 5/10; fu 00:08 Body Mass Index 27.20 (88.45 kg, 180.34 cm) tt3 MDM: 00:24 Patient medically screened. 8 01:44 Data reviewed: vital signs, nurses notes, and as a result, I will discharge patient. jr8 Data interpreted: Pulse oximetry: on room air is 97 %. Interpretation: normal. Counseling: I had a detailed discussion with the patient and/or guardian regarding: the historical points, exam findings, and any diagnostic results supporting the discharge/admit diagnosis, the need for outpatient follow up, a orthopedic surgeon, to return to the emergency department if symptoms worsen or persist or if there are any questions or concerns that arise at home. Response to treatment: the patient's symptoms have markedly improved after treatment. 08/16 00:31 Order name: IV; Complete Time: 01:00 jr8 Administered Medications: 01:01 Drug: TORadol 30 mg Route: IVP; Site: right antecubital; fu 01:50 Follow up: Response: Pain is decreased fu 01:01 Drug: Decadron - Dexamethasone 10 mg Route: IVP; Site: right antecubital; fu 01:50 Follow up: Response: No adverse reaction fu 01: Drug: Dilaudid 1 mg Route: IVP; Site: right antecubital; fu 01:50 Follow up: Response: Pain is decreased fu 01:59 Drug: Dilaudid 2 mg Route: IVP; Site: right antecubital; fu Disposition: 05:46 Co-signature as Attending Physician, Linus Franks MD I agree with the assessment and tw4 plan of care. Disposition: 08/16/20 01:58 Discharged to Home. Impression: Low back pain, Chronic pain due to trauma. - Condition is Stable. - Discharge Instructions: Back Pain, Adult, Chronic Back Pain, Musculoskeletal Pain, Heat Therapy. - Medication Reconciliation Form, Thank You Letter, Antibiotic Education, Prescription Opioid Use form. - Follow up: Private Physician; When: 2 - 3 days; Reason: Recheck today's complaints, Continuance of care, Re-evaluation by your physician. - Problem is new. - Symptoms have improved. Signatures: Aman Cruz PA PA jr8 Yonathan Quiñonez RN RN fu Wadley, Terrence, MD MD tw4 Corrections: (The following items were deleted from the chart) 02: 01:58 08/16/2020 01:58 Discharged to Home. Impression: Low back pain; Chronic pain due fu to trauma. Condition is Stable. Forms are Medication Reconciliation Form, Thank You Letter, Antibiotic Education, Prescription Opioid Use. Follow up: Private Physician; When: 2 - 3 days; Reason: Recheck today's complaints, Continuance of care, Re-evaluation by your physician. Problem is new. Symptoms have improved. jr8
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
[2020-08-16] MEDS ORDERED: HYDROMORPHONE HCL 2 MG/ML inj ONE (02:08)
[2020-08-16 02:26] VITALS: TEMP 98.3
[2020-08-16 02:29] VITALS: BP 131/87; O2SAT 97
== END 2020-08-16 02:22 | disposition home or self-care (01) ==
LOC: ER 23:49
DX: G89.21 Chronic pain due to trauma (principal)
CPT/HCPCS: 96375; 96374; 99283; J1170 ×2; J1100

== ENCOUNTER 2020-08-21 17:07 | Emergency (ER) | payer OTHER ==
--- OUTSIDE RECORDS SUMMARY | 2020-08-21 17:10 | XMS REPORT | Clinical Summary ---
:1980 Author Organization [facility] Address [address] [place] [address] Care Team Providers Name Role Phone Pcp Primary Care Provider Unavailable Allergies Active Allergy Reactions Severity Noted Date Comments Loratadine Other (See Comments) Low 2008 anxiety Medications Medication Sig Dispensed Refills Start Date End Date Status HYDROcodone-acetami Take 1 tablet by 0 Active nophen (NORCO mouth every 6 (six) 5-325) 5-325 mg per hours as needed for tablet Pain. zolpidem (AMBIEN Take 12.5 mg by 0 Active CR) 12.5 MG CR mouth every night tablet as needed for Insomnia. ondansetron Take 4 mg by mouth 0 Active (ZOFRAN) 4 MG 2 (two) times daily tablet as needed for Nausea. budesonide Take 0.25 mg by 0 Act robbi (PULMICORT) 0.25 nebulization 2 mg/2 mL nebulizer (two) times daily. solution diazePAM (VALIUM) 5 Take 10 mg by mouth 0 Active MG tablet every 6 (six) hours as needed for Anxiety. venlafaxine Take 150 mg by 0 Act robbi (EFFEXOR-XR) 150 MG mouth daily. 24 hr capsule ARIPiprazole Take 10 mg by mouth 0 Active (ABILIFY) 10 MG daily. tablet butalbit/acetamin/c Take by mouth. 0 Active aff/codeine (BUTALBITAL-ACETAMI NOP-CAF-COD ORAL)Indications: for migraines acetaminophen-codei Take 1-2 tablets by 30 tablet 0 08/17/2020 08/27/2020 Active ne (TYLENOL-CODEINE mouth every 4 #3) 300-30 mg per (four) hours as tablet needed for Pain for up to 10 days. Max Daily Amount: 12 tablets HYDROcodone-acetami Take 1 tablet by 30 tablet 0 08/17/2020 Active nophen (NORCO mouth every 6 (six) 10-325) 10-325 mg hours as needed for per tablet Pain for up to 10 days. Max Daily Amount: 4 tablets Active Problems Problem Noted Date Malfunction of spinal cord stimulator 08/17/2020 Encounters Date Type Specialty Care Team Description 08/17/2020 Surgery TRANG Calderon/ MD Miguel REPLACEMENT,SPI NAL NEUROSTIMULATOR LEAD(S) 08/17/2020 Anesthesia Event Kaden Hui MD 08/17/2020 Hospital Encounter Felipa Calderon on of spinal cord stimulator, subsequent encounter (Primary Dx); MD Miguel Pre-op testing 08/17/2020 Travel 08/12/2020 Hospital Encounter Miguel Calderon MD 08/12/2020 Hospital Encounter Cardiology Miguel Calderon MD 08/12/2020 Hospital Encounter Pre-Admission Kvng Pre-op t esting; Testing MD Miguel Special screeni ng examination for viral disease 08/12/2020 Hospital Encounter Pre-Admission [facility], Jeet Rivera MD 08/12/2020 Outside Orders Pcp, No 08/12/2020 Orders Only Neurosurgery Kvng Special screeni ng examination for viral disease (Primary Dx); MD Miguel Pre-op testing 08/12/2020 Orders Only Neurosurgery Miguel Calderon MD 08/12/2020 Orders Only Neurosurgery Miguel Calderon MD 08/12/2020 Travel 08/03/2020 Emergency Emergency Medicine [place], Chronic l ow back pain, MD Will unspecified anna k pain laterality, uns pecified whether sciatic a present (Primar y Dx) 08/03/2020 Travel after 08/21/2019 Social History Tobacco Use Types Packs/Day Years [...] Vital Sign Reading Time Taken Blood Pressure 118/79 08/17/2020 2:20 PM CDT Pulse 74 08/17/2020 2:20 PM CDT Temperature 36.4 C (97.5 F) 08/17/2020 2:20 PM CDT Respiratory Rate 18 08/17/2020 2:20 PM CDT Oxygen Saturation 99% 08/17/2020 2:20 PM CDT Inhaled Oxygen Concentration - - Weight 85.1 kg (187 lb 9.8 oz) 08/17/2020 6:00 AM CDT Height 182.9 cm (6') 08/17/2020 6:00 AM CDT Body Mass Index 25.44 08/17/2020 6:00 AM CDT Plan of Treatment Health Maintenance Due Date Last Done Comments LIPID PANEL 2017 INFLUENZA VACCINE (#1) 2020 Implants Implanted Type Area Raisin Washer Device Identifier Shelf Model / Expiration Serial / Date Lot Mri Intellis Sensor [id number] - [id number] IMPLANTS Right: Back M [employer]TRONIC:NEURO [id number] 07/08/2021 [id number] / Implanted: Qty: 1 on 08/17/2020 by Miguel Calderon MD MODULATION [id number] / Lead Vectris Surescan 1x8 60cm [id number] - [id number] IMPLANTS N/A: Spine MEDTRONIC:NEURO [id number] 06/10/2024 [id number] / Implanted: Qty: 1 on 08/17/2020 by Miguel Calderon MD Thoracic MODULATION [id number] / Lead Vectris Surescan 1x8 60cm [id number] - [id number] IMPLANTS N/A: Spine MEDTR[employer]IC:NEURO [id number] 06/10/2024 [id number] / Implanted: Qty: 1 on 08/17/2020 by Miguel Calderon MD Thoracic MODULATION [id number] / Procedures Procedure Name Priority Date/Time Associated Diagnosis Comme nts RHYTHM STRIP - 08/19/2020 8:40 SCAN AM CDT FL FLUORO STAT 08/17/2020 9:16 Results for this NON-SPECIFIC UP TO AM CDT procedure are in 1 HOUR the results section. TISSUE EXAM AP Routine 08/17/2020 8:40 Results for this AM CDT procedure are i n the results section. PROCEDURE W/ C-ARM 08/17/2020 8:00 Malfunction of AM CDT spinal cord stimulator, initial encounter (HCC) Special Needs (C-ARM, [employer]) REVISION/ REPLACEMENT,SPINAL 08/17/2020 8:00 AM CDT M alfunction of spinal NEUROSTIMULATOR LEAD(S) cord stimulator, initial encounter (HCC) Special Needs (C-ARM, [employer]) TRANSFUSION SERVICE 08/13/2020 6:04 PM REPORT - SCAN CDT XR CHEST 2 VIEWS Routine 08/12/2020 3:37 PM Pre-op testing Re sults for this CDT procedure are i n the results section. ECG 12-LEAD Routine 08/12/2020 3:19 PM CDT Procedure Note - Interface, External Ris In - 08/12/2020 5:03 PM CDT Ventricular Rate 77 BPM Atrial Rate 77 BPM P-R Interval 120 ms QRS Duration 88 ms Q-T Interval 376 ms QTC Calculation(Bazett) 425 ms P [place] 53 degrees R [place] 43 degrees T [place] 37 degrees Normal sinus rhythm Normal ECG [...] in viral disease the results section. after 08/21/2019 Results RHYTHM STRIP - SCAN (08/19/2020 8:40 AM CDT) Narrative Performed At This result has an attachment that is no t available. FL fluoro non-specific up to 1 hour (08/17/2020 9:16 AM CDT) Specimen Narrative Performed At Fluoroscopic unit utilized for a procedure performed i n the OR.No GE RIS interpretation was requested.Refer to the operativ e report for findings.Refer to PACS for patient radiation dose information. Procedure Note Interface, External Ris In - 08/17/2020 12:03 PM CDT Fluoroscopic unit utilized for a procedu re performed in the OR. No interpretation was requested. Refer to the operative r eport for findings. Refer to PACS for patient radiation dose information. Performing Organization Address City/State/[facility] Phone Number GE RIS Tissue Exam (08/17/2020 8:40 AM CDT) Case Report Surgical Pathology Report Case: [id number] [facility] Sante[employer]et Authorizing Provider:Miguel Neal MDCollected: 08/17/2020 08:40 AM [facility] Ordering Location: [facility] PERIOPERATIVE Received:08/17/2020 10:07 AM SERVICES Pathologist: Eboni Renner MD Specimen:Other, Spin al Cord Stimulator; for ID only DIAGNOSIS A. SPINAL CORD STIMULATOR, REMOVAL: Drippler - EMERGENCY PLANNER FOR GROSS IDENTIFICATION ONL Y [facility] Signing Pathologist Direct Phone Line: [phone] CPT Code(s) 42189 [facility] [place] [facility] ER CLINICAL HISTORY Preop diagnosis: Drippler Malfunction of spinal cord [facility] stimulator, initial encounter. SPECIMEN SOURCE Other [facility] [place] [facility] ER GROSS DESCRIPTION Received fresh labeled with the patient's name, accession number and "spinal cord stimulator" is a 5.2 x 5.2 x 0.8 cm metallic duran-piece of hardware, which is consistent with with a neural stimulator, [facility] and a 8.0 x 4.5 x 0.4 cm agg regate of metallic duran tubing. The following inscription is identified: [facility] [employer] [facility] SureScan MRI SN [id number] A gross photograph is taken. No sections are submitted. This case is for gross examination only. PA/pl MICROSCOPIC DESCRIPTION NA [facility] Kenneth [facility] ER Specimen Tissue - Other Performing Organization Address City/State/Zipcode Phone Number [facility] [address] [place] [address] CENTER TRANSFUSION SERVICE REPORT - SCAN (08/13/2020 6:04 PM CDT) Narrative Performed At This result has an attachment that is no t available. XR chest 2 views (08/12/2020 3:37 PM CDT) Specimen Narrative Performed At FINAL REPORT Skift TECHNIQUE: Frontal and lateral views of the [...] Date/Time: 08/12/2020 1 6:53:49 Performing Organization Address [facility] Phone Number [id number] RIS ECG 12 lead (08/12/2020 3:19 PM CDT) Specimen Narrative Performed At Ventricular Rate 77 BPM GE MUSE Atrial Rate 77 BPM P-R Interval 120 ms QRS Duration 88 ms Q-T Interval 376 ms QTC Calculation(Bazett) 425 ms P [place] 53 degrees R [place] 43 degrees T [place] 37 degrees Normal sinus rhythm Normal ECG No previous ECGs available Confirmed by MD JOLLY YOCHAI ([id number]) on 08/14/2020 4:27:36 PM Procedure Note Interface, External Ris In - 08/14/2020 4:27 PM CDT Ventricular Rate 77 BPM Atrial Rate 77 BPM P-R Interval 120 ms QRS Duration 88 ms Q-T Interval 376 ms QTC Calculation(Bazett) 425 ms P [place] 53 degrees R [place] 43 degrees T [place] 37 degrees Normal sinus rhythm Normal ECG No previous ECGs available Confirmed by MD JOLLY YOCHAI ([id number]) on 08/14/2020 4:27:36 PM Performing Organization Address [facility] Phone Number [id number] MUSE SARS-CoV2/RT-PCR ([facility]) (08/12/2020 3:14 PM CDT) SARS-COV2/RT-PCR Negative Not Detected, Negative, [facility] See external report for MEDICAL CENTER linked test SARS-COV-2 PERFORMING LAB [facility] Specimen Other Narrative Performed At Negative result for this test determines that [facility] SARS-CoV-2 RNA was not present in [...] the Act. Fact Sheet for Healthcare Providers: https://www.Helishopter.Playbasis/sites/default/files/pro duct/documents/Fact_Sheet_HC_Providers_Lyra_SA RS-CoV-2.pdf Fact Sheet for Healthcare Patients: https://www.Helishopter.com/sites/default/files/pro duct/documents/Fact_Sheet_Patients_Lyra_SARS-C oV-2.pdf Performing Laboratory: [address] [place] [address] Performing Organization Address City/State/[place] [address] CENTER Urinalysis w/Microscopic + Reflex to Culture (08/12/2020 3:14 PM CDT) Color, UA Yellow [facility] Clarity, UA Clear [facility] Specific Lyle, UA 1.027 1.001 - 1.035 [facility] pH, UA 6.0 5.0 - 8.0 [facility] Protein, UA Negative Negative [facility] Glucose, UA Negative Negative [facility] Ketones, UA Negative Negative [facility] Bilirubin, UA Negative Negative [facility] Blood, UA Negative Negative [facility] Nitrite, UA Negative Negative [facility] Leukocytes, UA Trace (A) Negative [facility] Urobilinogen, UA 0.2 0.2 - 1.0 mg/dL [facility] RBC, UA 0 /HPF [facility] WBC, UA <1 /HPF [facility] Squam Epithel, UA <1 /HPF [facility] Specimen Source [facility] Specimen Urine Narrative Performed At Catering Server ID - [auto] [facility] Catering Server ID - tech Performing Organization Address [facility] Phone Number [address] [address] CENTER Type and screen, automated (08/12/2020 3:14 PM CDT) ABO/RH AUTOMATED (BEAKER) AB POSITIVE [facility] Ab Scrn NEGATIVE [facility] Specimen Blood Performing Organization Address City/[facility]/Zipcode Phone Number [place] [phone] [place] [address] CBC with platelet count + automated diff (08/12/2020 3:14 PM CDT) WBC 5.9 3.5 - 10.5 K/L [facility] RBC 5.45 4.63 - 6.08 M/L [facility] Hemoglobin 15.5 13.7 - 17.5 GM/DL [facility] Hematocrit 49.7 40.1 - 51.0 % [facility] MCV 91.2 79.0 - 92.[address] [facility] MCH 28.4 25.7 - 32.[address] [facility] MCHC 31.2 (L) 32.3 - 36.5 GM/DL [facility] RDW 13.2 11.6 - 14.4 % [facility] Platelets 232 150 - 450 K/CU MM [facility] MPV 11.0 9.4 - 12.[address] [facility] nRBC 0 0 - 0 /[address] [facility] % Neutros 67 % [facility] % Lymphs 27 % [facility] % Monos 6 % [facility] % Eos 1 % [facility] % Baso 0 % [facility] # Neutros 3.90 1.78 - 5.38 K/L [facility] # Lymphs 1.57 1.32 - 3.57 K/L [facility] # Monos 0.33 0.30 - 0.82 K/L [facility] # Eos 0.03 (L) 0.04 - 0.54 K/L [facility] # Baso 0.01 0.01 - 0.08 K/L [facility] Immature Granulocytes-Relative 0 0 - 1 % C [facility] Specimen Blood Performing Organization Address City/State/Zipcode Phone Number [facility] [address] [place] [address] CENTER aPTT (08/12/2020 3:14 PM CDT) PTT 33.7 22.5 - 36.0 seconds [facility] Specimen Blood Performing Organization Address [facility]/Zipcode Phone Number [address] [phone] [place] Prothrombin time/INR (08/12/2020 3:14 PM CDT) Protime 13.4 11.9 - 14.2 seconds [facility] INR 1.05 <=5.90 [facility] Specimen Blood Narrative Performed At Effective 04/22/2019: PT Reference Range [facility] Change New: 11.9-14.2Previous: 11.7-14.7 RECOMMENDED COUMADIN/WARFARIN INR THERAPY RANGES STANDARD DOSE: 2.0-3.0Includes: PROPHYLAXIS for venous thrombosis, systemic embolization; TREATMENT for venous thrombosis and/or pulmonary embolus. HIGH RISK: Target INR is 2.5-3.5 for patients wiht mechanical heart valves. Performing Organization Address [facility] Phone Number [address] [address] [place] Basic Metabolic Panel (08/12/2020 3:14 PM CDT) Sodium 143 136 - 145 meq/L [facility] Potassium 3.8 3.5 - 5.1 meq/L [facility] Chloride 106 98 - 107 meq/L [facility] CO2 30 (H) 22 - 29 meq/L [facility] BUN 12 7 - 21 mg/dL [facility] Creatinine 1.24 0.57 - 1.25 mg/dL [facility] Glucose 97 70 - 105 mg/dL [facility] Calcium 9.0 8.4 - 10.2 mg/dL [facility] EGFR 79Comment: ESTIMATED GFR IS mL/min/1.73 sq m [facility] NOT ACCURATE CREATININE [place] [facility] CLEARANCE IN PREDICTING GLOMERULAR FILTRATION RATE. ESTIMATED GFR IS NOT APPLICABLE FOR DIALYSIS PATIENTS. Specimen Blood Narrative Performed At Catering Server ID - BS [facility] Performing Organization Address City/State/Zipcode Phone Number [facility] [address] [place] [address] CENTER after 08/21/2019 Insurance Payer Benefit Plan / Group Subscriber ID Type Phone [facility] MEDICAID [facility] xxxxxxxxx Medicaid Advance Directives For more information, please contact:[address] [phone] Code Status Date Activated Date Inactivated Comments Full Code 08/17/2020 7:15 AM 08/17/2020 8:26 PM This code status was determined by: Patient
--- OUTSIDE RECORDS SUMMARY | 2020-08-21 17:11 | XMS REPORT | Continuity of Care Document ---
:1980 Author Organization [facility] t Address [address] [place] [address] Care Team Providers Name Role Phone Pcp Primary Care Physician Unavailable Heron DEMPSEY Attending Clinician Niko Hui MD Attending Clinician HERON Attending Clinician Unavailable Pcp Attending Clinician Unavailable Ramona DEMPSEY Attending Clinician William BONDS Attending Clinician Baudilio Fiore MD Attending Clinician HERON Admitting Clinician Unavailable Payers Payer Name Policy Policy Number Effective Expiration Source Type Date Date [place] [facility] [place] [facility] Problems Condition Condition Condition Status Onset Resolution Last Treating Co mments Source Name Details Category Date Date Treatment Clinician Date Malfunctio Malfunctio Disease Active [facility]: Medical cord cord 00 Center stimulator stimulator Allergies, Adverse Reactions, Alerts Allergy Allergy Status Severity Reaction(s) Onset Inactive Treating Comm ents Source Name Type Date Date Clinician Suzie Romero Active Other (See anxiety [facility] ne ty to Comments) 04-30 [facility] adverse 00:[facility]: Medical reaction 00 Center s Social History Social Habit Start Date Stop Date Quantity Comments Source History SDOH Alcohol [facility] History SDOH Alcohol [facility] Binge [facility] Sex Assigned At [facility] History SDCA Alcohol 2020-08-03 2020-08-[address] [facility] - Frequency 00:00:00 00:00:00 Medical Center Smoking Status Start Date Stop Date Source [facility] sm[facility] Ordered Filled Start Stop Current Ordering Indication Dosage Frequency Signature Comments Components Source Medication Medication Date Date Medication? Clinician (SIG) Name Name acetaminoph 2019- 2020- Yes 1{tbl} Take 1-[address] en-codeine -16 09- tablets by Yancy Gannon (TYLENOL-CO 00:00: 23:59 mouth Medi lino DEINE #3) 00 :00 every 4 Center 300-30 mg (four) per tablet hours as needed for Pain for up to 10 days. Max Daily Amount: 12 tablets HYDROcodone 2019- 2020- Yes 1{tbl} Take [address] -acetaminop -16 09- tablet by Yancy lopez (NORCO 00:00: 23:59 mouth Medic al 10-325) 00 :00 every 6 Center 10-325 mg (six) per tablet hours as needed for Pain for up to 10 days. Max Daily Amount: 4 tablets venlafaxine 2019-0 Yes 150mg QD Take [address] (EFFEXOR-XR 9-18 mg by Aimee - ) 150 MG 24 08:29: mouth Medic al hr capsule 10 daily. [place] ARIPiprazol 2019-0 Yes 10mg QD Take 10 [...] Center hours as needed for Anxiety. budesonide 2020-0 Yes .25mg Q.5D Take 0.25 C HI [...] Center night as needed for Insomnia. HYDROcodone 2019-0 Yes 1{tbl} Take [address] -acetaminop 9-18 tablet by Delmar es - hen (NORCO 08:23: mouth Medica l 5-325) 21 every 6 Center 5-325 mg (six) per tablet hours as needed for Pain. Vital Signs Vital Name Observation Time Observation Value Comments Source Systolic blood 2020-08-17 14:20:00 118 mm[Hg] [facility] Diastolic blood 2020-08-17 14:20:00 79 mm[Hg] [facility] Heart rate 2020-08-17 14:20:00 74 /min [facility] Body temperature 2020-08-17 14:20:00 36.39 Gabriela [facility] Respiratory rate 2020-08-17 14:20:00 18 /min [facility] Oxygen saturation in 2020-08-17 14:20:00 99 /min [facility] Arterial blood by Medical Ce nter Pulse oximetry Body height 2020-08-17 06:00:00 182.9 cm [facility] Body weight Measured 2020-08-17 06:00:00 85.1 kg [facility] BMI 2020-08-17 06:00:00 25.44 kg/m2 [facility] Procedures Procedure Date / Time Performing Clinician Source Performed RHYTHM STRIP - SCAN 2020-08-19 08:40:25 Provider, Default [facility] [place] FLUORO NON-SPECIFIC UP 2020-08-17 09:16:00 Cornell Calderon [facility] TO 1 HOUR [facility] TISSUE EXAM 2020-08-17 08:40:00 Heron Miguel [facility] REVISION/ 2020-08-17 08:00:00 Miguel Calderon [facility] - REPLACEMENT,SPINAL Medical Cente r NEUROSTIMULATOR LEAD(S) PROCEDURE W/ C-ARM 2020-08-17 08:00:00 Heron Miguel [facility] TRANSFUSION SERVICE REPORT 2020-08-13 18:04:04 Provider, Default [facility] - - SCAN Scanning [facility] XR CHEST 2 VIEWS 2020-08-12 15:37:00 Heron, Miguel [facility] ECG 12-LEAD 2020-08-12 15:19:21 Unknown, Hl7 Doctor [facility] SARS-COV2/RT-PCR ([facility] & 2020-08-12 15:14:[address] [facility] - REF LABS) [facility] BASIC METABOLIC PANEL (7) 2020-08-12 15:14:00 Cornell Calderon [facility] URINALYSIS W/ REFLEX URINE 2020-08-12 15:14:00 HeronOdilon broussard [facility] APTT 2020-08-12 15:14:00 [facility] PROTHROMBIN TIME/INR 2020-08-12 15:14:00 [facility] Miguel [facility] TYPE AND SCREEN, AUTOMATED 2020-08-12 15:14:00 Odilon Calderon [facility] CBC W/PLT COUNT & AUTO 2020-08-12 15:14:00 Miguel Calderon [facility] Plan of Care Planned Activity Planned Date Details Comments Source Future Scheduled 2020-07-[address] [facility] - Test 00:00:00 (#1) [code = [facility] INFLUENZA VACCINE (#1)] Future Scheduled 2017 Lipid panel [facility] s - Test 00:00:00 (procedure) [code = [facility] [id number]] Encounters Start End Encounter Admission Attending Care Care Encounter Source Date/Time Date/Time Type Type Clinicians Facility Department ID 2020-02-19 2020-02-19 Emergency William [facility] [id number] 20:56:33 21:37:00 Fabien Gómez [id number] [place] [id number] [place] [id number] 2020-02-13 2020-02-13 Emergency Adebayo [facility] [id number] 05:38:10 06:52:00 Jayden Astudillo Rico [id number] [place] [id number] [place] [id number] Results Test Description Test Time Test Comments Results Result Comments Source Tissue Exam 2020-08-17 13:00:00 Test Item Value Reference Range Interpretation Comme nts Case Report (test code = 104) Surgical Pathology Report Case: [id number] Authorizing Provider: Miguel Calderon MD Collected: 08/17/2020 08:40 AM Ordering Location: [facility] PERIOPERATIVE Received: 08/17/2020 10:07 AM SERVICES Pathologist: Eboni Renner MD Specimen: Other, Spinal Cord Stimulator; for ID only DIAGNOSIS (test code = 3220) a9waxYRwJQZvv1wfYYBrbPIvWlPlGuWzIhRwTk pc nHSxKDmhciJdBGogu4LxL6YnEaGgRNpvjnXiIKAe RegcswnoMDBqEVR0uqAmGMNaPTluENCkHLpxRm3s eZQmdBkvLrOvPWBci1jwomTIaqdxsAh2t7twUPJe MuL3uKCsNOgpR1eaacKvxSBpNRFcVXl2aJ26XPGs qU1geDAhEYajuxHmDJgctoRpaxTlSxz4FLEzO9vq XHEvWUGoG7AfTH6mMAPvXqx1ZQJ9YVY1dIevb4V2 xPJyfHCkyOxpTkSbUfPwVAXMd0MhFJs2qGdjU3Sc RYSmQqT0iVWiWJByRWugMVLzYZTxmeG1yR26GLbd umC1iPWeu9Suq89le492rF5xfNQpLKP9ZHGxPZJh gKKmUVIrHNF2VJTrbUQnG2e9TmFelGDsG9X1YjKr sINaC6I5VzHwdTHfL0Y1QdYgoAMwDCVfhQMyEb9u sWSaeMHlzn2oaz37VSV8w7BzxHobQIA9XWW2FaVb Fc3frUOhYNFiWS2aMbKomFDkUGRuzi92zGakWTwr jnSqsZ7jUfRyILDjfLCxYEIqEO3ufAExMUTkzF1z delsKYYvNlRltbtqPOCqzXofbkXjGy0gxXdsSGW5 YRrwC8lawL4kRsC9XZurI0hudR9dBXz6LIlkwRK6 VJSzvX1nPY9xwalpi9vfUmTnWA4zkfdnq7tfSoTw MV1lffx9r6yoMsCxMS4boymxn1vbOgJdMQznCUQn vivzMUFsy5ZbxfwjQPElh7YnO8BfqZfuZ74czNiv S89eMTLldSihfU8htEhrrG0yHgBcOlGqLWbxkCdg lJXfchwtQQjgkvExDZFbOQuvCGOdGCTxRpPgFY9y P8LBSxUMFEIKQlQbG8SQLOLQXFUZVgjmTySKM9TB NOrsiIFnHREiLENaHNKTDCEFMJDMKRYCN2IbHy1V SFoGT6FREZkWBY3NLPAVV1DIKT7JDS1KIBpxSNPj prqaFEX6g4clsUBbRJWzlYSlNTKzFEyeteVjXVMb KxrutchySXVyPCJ4ogXjIRJnWEoxBAYkIMemXy7b pLCaxFnqTpHnEKZeo3iqzfIZrnshcCd7v2ngNBPz MjF2yCZvAUpmN4yccaTkqQFsIQUuVKv7rO45ROIe uL7heQEuQIjgqqTdAzK7NYulDQZvUaP7VCAloOLl RSHzZ4peCMCkEJkiWDPkUQendQIgROX4oJnmf2T6 bFAkaICmlFbvPyQtNwCjVhXAa3LaQKz4rJanB7Pf WXQnSwE0sUVnYPOqMIfmDRQyYALchxD7sW74ETki qoA0lAXtr5Gft85bc232fR7tbRFrBNF1ODVxDDSn yJNjPXTyUIX8DMLgvDSzR1vbVWKnOE3gyrjcSPgi QQybJXGvsOB0QPKsbJGhM9JdHJRaYRnmDHVxanq3 UfTsQc2jgNMnlOksTAacl2klg5ojoGLvVmc5QKMq UrFbDitgVYoxo5Sbq8bzPXKpnp3pRQA0aGNnfOrg s1X1mOLkMUFktPCsVSEmMT2poUViSHSltS6shqyu FPWvAiUcbdpyQFMszMxreqMaJt6jeOabIKE0TEyn I6rpgP1jApU2CXavP0cuhC6dZZi0ZVscHIQyeMX3 mgJ0UIQywMXzA3OkiA1nUZDcWE5vnyx5e0wgQPW9 MXbgQJJbGvJ6rjD2XBLyzHVxSGCtcStgTNqcr305 OVR7LiSfLBAjs3SbI6AdhUscS79rjGybW35zJGGi nEjzvW5nlWpxnL4pErCdOaCtZPqkyLptTT9sPGYy H8nxeISeEJDfCJBbF8yyUaNywP1lpClySExjtaFv EYVeWjr4GZCjrWZcXSXnXdt5QUAbRCWoW77cgpnw OKY2lT5ot5jfe7SdBQscRQN5USOtm80uIUwxjzT7 YGsrQn1lLOEfPdq2SQztYCH4hH== CPT Code(s) (test code = 3357) n8jtkIMeDZTljPXxNsVgVWCoHPHfj5qaTVFl bGFu ZdMpVsUsZyLcBffhvMUzPWYpOrYvx1tll198xWWp w2gtFUYoEmX6aMYxVTXbuSPcU190l7cho1lccdSy bOX6YOMdYYO7GTqrzfThcxJ0KZbzaYHnWeT1NDbv vrQgIYqgukTvlsGaZbq8WMYiI327WAI2dTypz7rc HZH1UMMnKFNjUyWuYb5riUYbB594YAOwNEOAMADq rJb5CBPxmqErgcIctGVDw501J997s1kwJWThyfSm zUsToqsxu2ghV149WZLyqZFmdeBiHoOgNOQtgMQw bDR7QBNsMT0graxcYmXhWU2qdrlzLxGzMK5bumq4 TwSdPC9uvktqQqRlJFciKCXcgwjmAPKis4Evuniv LH5iJ8Ubw8P2jA7zlDWdLTCsbQAyPmDaYFJsmh0l wIXpSCpcf2FfQMQ0gjD7jLZcwWDoNSUzLQ51Jkld y4BvYskySQS5RLUygvQfj2Oqr9ilDaAyxiYlR8ik H8CtGEKzHGQjOLNoAvZodzPpx2Sbf7GnvOVfbNm7 x9adQQJoRJKupSwwc0meLOA4TNIeJ6T6yGAkb0lw LWpkKFDyiWN8ptogCBbqFZInbcI5rjhiDRweIVQv xLP3cfawJVmyVJVdGcQ9bdfeYBngMKOiMAF7BUyk y972BFE4MDrjRbbjNKumMZOfrgKszyOsmBlyFELf FMTsGRpcUIVqQFmwMJImUYXfIgLyhOdahVivdM7s KyQiEuDsDVgwUQ4qVEWgR1nvcTLzPWEwFNIcK5io RoBuvO8ozYmpTHmaqcDqSYm8SrDuUVFlzi6= CLINICAL HISTORY (test code = 3356) r6jskJCbWQLywRIzQdSiKNXoHQTkm5g cZGVmbGFu KpCwYcRxXvHvYqlbsAZnNBWpRpRof2eec816aEUj g0djKBEtGvX0dOCoJZQpnGQvC665d3yld9pmblUr lQH1APYbZWE4ETlpcpHsaoS0PUaquTQsAkZ8GRav lfDkCMfbwePqpnHvLxl0SDPgT205ZQS4eZbyd0zq GBO3CXHaZPLbUbIeYw2xwTHtI964NRGrWCOIZVZq xCs4RIWsrzBsieFfrQZTb785W928i6npNMDzkoUz sZnIsffrv8epW401FRHuiLUovyTxKdHoMMBwiNKr dQG0XJTrZJ7smzfgNjWsHE5tobiyAfMkGS4ghee9 LtJeWO0zzvrmBiMdZCdiHKGlaksnCCCdj5Ttifvw SW3yF6Sac6U0yM6aeAZbVJKpnZWdKtViKUDmso6m oGCdZEhjt9QrVWY8utQ1xFRzmDDiNRBdKT57Olrk d3LpRuopHZV6LPPvhoRfr2Abg3ciXlWkteWxP0xr M3KePEUsWANlYCUiQxCvgaFfr5Zzv3BwaHNgoNw5 s7maJFFtANMisNfls3wiCEK7WYTxZ4S9eWZdg4mw CUgzOASubAA8gaasYNoeGUGwjkO0keleXCzzXYVk dFA1tfyjCJjgAZVmFhA9ndouVFwiTGZxSID1RAee u739HIC7NUvdMvsuNVefNVWfrhCokpSqeHgdDLCi XRByRFpcNYAaWNodCPRgGPIyFbJfxIpmmVgckP1s SjLkFlWeEGlmJV6hTCTjC3yuvAYeUHNsRDRmF5ib MhWvgI6kcVrhISreazJiDBLaAY5wHSZsUHgzn6Fq arssPA3ziKZ2ojJ6jN2vST3pOLMawP4lgFNol9Es AFY0hL13wCW6c8KtHUdtkHReWZwgCI5ij6PvjPMx LiBccGFyfQ== SPECIMEN SOURCE (test code = 3377) x2pkzUTdAPWawJFlYjAdLQIzBHNbr3mi ZGVmbGFu PeGmSqOxXzJcUmnbgGPiTOVxKbJme1vtt208wXOm p5taGGDiGdR7fPLlYZLwcRRfS865y8zhv9ncbpEf nGF4JYUrMQV9OCnyfyKougG6BIaoqUMkDbD0BNst dxDyDOrpxyDewwTkTiz2QIEqP701CMF9qJcwj5sb YLZ8XAXrSICoUhYsIg5btEWwT583AUPqCGWKQPAx dZn8TNLxbpKiovHwlZPMn069R867y4nyIHScfeAa lKzRrcflh7cyC569NRBfnWLttaCrGuGiKBBnuVMo rCI2UEKxXW1gtdedRvTnII8iufxdAyUrII2cbna7 VtRqPM4swkqeKeLpYPbxTAQkirkyADHia7Byukgg XM9jM3Zqq7Z6pZ2hvYYwQDHbkNOlAsWlTYJmhf6l nQIpGYvxb4MwXUA2plK2jHXarBRrVHBhXI49Dere s1YgKjwlHQZ6XEJoouBxn8Smi9wtDqWzxqDbB5km U7YpSCExCHSrLENsIhHbhpUir8Kww5PdmXUagVx7 v3vwRRXwIEOzpStgk1mmCCX7EOAxD4E3jEQbi2dz GNekFQZhoOE2uidoNAdtPRSpmyJ1fsffPFftNFIb aJS4csqvQTjkMWUgLiH1bpxlHWluKNXoRGW7NCjv j735CVQ4AYnrRdckFBvzRXWzpeLoezQetOiyHSOi BIFhSTzfRJKjDLflFERoUVCaHuIvzLcdeIfglN7h FcOvJnJtAOwqBY1aAHCqC5taiIBnHEJlSRPfS6ec NaTxyE9qiKifUItdirZoRY54wHWbAVUamp0= GROSS DESCRIPTION (test code = 3366) d1beaIUvTPQcgWCmMoLpJGAtKWJsb4 lcZGVmbGFu ExOvAvTuJhGdOdaexAPlJNOqLuPkm2ols895hICl z5aeAFCuTbX5cQYaDAAajFLwJ033VGLsGXfxw8kd e1JvMGBrwNCtu6Y5EWBWflxidYp6uPcdL08eq5K7 PfdeA5udWHSwRJmgTDOgOCcrrKEcQBC2XWZxBSM2 BCsmgzCshpL5VRpdtLWpWvX9UPm8y2mjtVytYRAw OZR8g6qlPTzykgWiDM9qel5elFl6r6peslLfLVOl OSAjfEYVILBkP9McuUgnHp4xtHi3nAsnJimjACH3 Pba7LX5ego38jot7aQxpPWKwgtjcDoQ7RUksGRAo eaqcNOy0KCncHAChzAqoNXylXTXvhxnmWJzyMJFi tKysWUgeBVSmIsylMTcqJXHvRPO6HRpaa681JSX8 YPxdc0uzv4qzrNZvEjj4ZASyMuDnRhgtVNkan1Mg q4dmZDKhrh4oHMV5lRTkhUjvs8E7sWNoZULtyBRl ifVbZEPbUaM7DMsmTS2dye13AAAcIOB3du7pgKAg iCiskkAxqZDpZKtgX8WkGYLjv939XWZbG1XsMPUk m6Y8ztRsMeHsKJEzpBD8etN6TJHhBPj2hSDfaeR2 seUlgRRhW4xorF98MnJveKHiK3AcbH18JmXgrKCf C5LboO77VkIulCDmB1ZkmF20DiJnfWAsZXCcgZTg Ps9esBAlaKBow4FbmXAuGPfhI46us771MMIkulCx L8wcmMSmgpwtrZItuyirHBcuioDnBYYePZNhYIpj EXWpCUPsYdSrjVwwbX2dUdNxOpTfZHBYAGRjgZKb ZCBmcmVzaCBsYWJlbGVkIHdpdGggdGhlIHBhdGll zlMwypNwYW0oLFOeW7Fqy6Qjv52ccjRuFuBkORJa CGZxh9KdbeHwUTSuquKhe8GuvJSrZRKwwhXoyMPe FTF3PtBhwZO3FkTyxCGaCmkuA59yzZH1EGhwqJDb M2RfjH3hlRJyLETqKuLmUEQtc9DvKPvlw2jzD4st zAZcG07wy3hifTKtqGH0jWQqQYwylQzjBARcRBXb KKqbs4PqsCCxWYVxusozOM2fYPBhBF7eGGsjOY05 EBkeNS09MQWsIUUkQ8AsD3X6BQUsOxJyNXNzdQmz XnWapmW6YHJ3ZjokVf2xGSbhDXSszMkjz1tnZlFk bnNjcmlwdGlvbiBpcyBpZGVudGlmaWVkOlxwYXJc pZJaYP7tESQfk08eU4dgVMGnIkJkuL4cBEQGQA83 QMEgxTRvAWU4gnIXY8GfVX1DBQddSMQeN84gXm3Q NrXjEvNlRIrxVIUdkYRuWMNaR0Phn5QkyGkxjJ3k ibRfkEXwyfQ1UFjrjp9sLu1sy4YjcSigzxZqJOSj MFE0Je2zzUUsUT7rNAsceoLkQRNrAQgzGVKujsNb kw6ahrJkwQPkiP1ehHyncwIraah6EfXbDWRceEul IFxwYXJ9 MICROSCOPIC DESCRIPTION (test code = j4uqbIYaVCVbyTYeJjYzODEeCOUxh1 [place] [id number]) SuHiQyEwDwBtDxjnwAGsJMNfVgJuq1atd034iYQm s5bsOLWaPeG2dSJuBLKcwSAyA263e3zie9szriCk aXT8YOZqSFN9LQpadcEgnbK9KUevbTIqXhJ3ONjr xeNlNNzwyxKxtvKkNug9NAFaL706JQI5aLjkv2yr TFO5YANmGRDgZbFhQp8bwBHfG146WLXxRBBMAPNa nTu2DDJhezOgpnYcrFMGv508F804c1quEBGznjUg mQfQrihwb8jeA954PEYgkCOxvkQkQtWdBQRkuOUe gNZ1WGYmZG3lkilcEqJjQR4didvfZzQsGL0qtvf3 OnLeIQ0cqmelXhOjJHhoANYkvzpzCFSua6Pxqosf CF3eW0Kvk1S4gZ1gzUQgULTzzTZpLjJuKGPgcf3o jOOdEKbtj5TfGFP6qtC3zXHhzQCjTMTiZG61Hqqy t2QwMezyYFJ0CJEyhnKze2Nsp1pwSeJpqgDzO8ct I9NfJMPtHFTwXWRmPhYvqhPxc0Oqn7HtgLAwbWv4 h0uiKAQzMMTpbLksd3vtHCB2LTEtN6Z0mYRfl7lw VAmtKMLyvAX3aogwRXhaSMOqaeF0xhsjQFliRGIj cOK3jxwiUJhxZVXyYeR4djmnSRtbYDHxYKM6EDgz p823OOX5PYftSosiJKxeRNUwjsJbavNgdSmaPQNz GYPsHTfcDMIdXJduEYBwDOUrWsKzdWwrcVaidX7w OoNuIeIvWTusRA0bGPCoV2sktLVjVHNfWTYfE0uh NgWgkS9mmGhiLBugsfUhXE4IDTPvow7= [facility] [id number] 13:00:00Surgical Pathology Report Case: [id number] Authorizing Provider: Miguel Calderon MD Collected: 08/17/2020 08:40 AM Ordering Location: [facility] PERIOPERATIVE Received: 08/17/2020 10:07 AM SERVICES Pathologist: Eboni Renner MD Specimen: Ot her, Spinal Cord Stimulator; for ID only A. SPINAL CORD STIMULATOR, REMOVAL: - WASH HOUSE WORKER FOR GROSS IDENTIFICATION ONLY Signing Pathologist Direct Phone Line: [phone] signed by Eboni Renner MD on 08/17/2020 at 1:00 [id number] diagnosis: Malfunction of spinal cord stimulator, initial encounter. OtherReceived fresh labeled with the patient's name, accession number and "spinal cord stimulator" is a 5.2 x 5.2 x 0.8 cm metallic duran-piece of hardware, which is consistent with with a neural stimulator, and a 8.0 x 4.5 x 0 .4 cm aggregate of metallic duran tubing. The following inscription is identified:[facility] MRISN [id number] gross photograph is taken. No sections are submitted. This case is forgross examination only. PA/pl NAFL, FLUORO, NON-SPECIFIC, UP TO 1 [id number] 09:16:00Reason for exam:- >Spinal Cord Stimulator RevisionFluoroscopic unit utilized for a procedure performed in the OR. No interpretation was requested. Refer to the operative report for findings. Refer to PACS for patient radiation dose information.FL fluoro non-specific up to 1 [id number] 09:16:00Interface, External Ris In - 08/17/2020 12:03 PM CDTFluoroscopic unit utilized for a procedure performed in the OR. No interpretation was requested. Refer to the operative report for findings. Referto PACS for patient radiation dose information.[facility] [id number] 16:27:41Interface, External Ris In - 08/14/2020 4:27 PM CDTVentricular Rate 77 BPMAtrial Rate 77 BPMP-R Interval 120 msQRS Duration 88 msQ-T Interval 376 msQTC Calculation(Bazett) 425 msP Kenvir 53 degreesR Kenvir 43 degreesT Kenvir 37 degreesNormal sinus rhythmNormal ECGNo previous ECGs availableConfirmed by MD RIK, SARAH ([id number]) on 08/14/2020 4:27:36 [facility]) 2020-08-13 22:54:00 Test Item Value Reference Range Interpretation Comments SARS-COV2/RT-PCR Negative Not Detected, (test code = Negative, See 48403-2) external report for linked test SARS-COV-2 [facility] PERFORMING LAB (test code = 80740-7) ENE (test code = Negative result for this ENE) test determines that SARS-CoV-2 RNA was not [...] of the Act. Fact Sheet for Healthcare Providers:https://www.[employer]/sites/default/f amy/product/documents/F act_Sheet_HC_Providers_L tnw_KBOR-LiK-6.pdf Fact Sheet for Healthcare Patients:https://www.[employer]/sites/default/fi les/product/documents/Fa ct_Sheet_Patients_Lyra_S ARS-CoV-2.pdf Performing Laboratory:[facility] [place] [address] [facility])2020-08-13 22:54:00 Test Item Value Reference Range Interpretation Comments SARS-COV2/RT-PCR (test Negative Not Detected, Negative, code = 5807859) See external report for linked test SARS-COV-2 PERFORMING LAB [facility] (test code = 8589336) Negative result for this test determines that [...] 564(g) of the Act.Fact Sheet for Healthcare Providers:https://www.[employer]/sites/default/files/product/documents/Fact_Shee r_MY_Uwwfcvqng_Oqha_FAIZ-FdW-3.pdfFact Sheet for Healthcare Patients:https://www.[employer]/sites/default/files/product/ documents/Srch_Zwzfg_Obkhries_Wurk_TXPD-DeT-3.pdfPerforming Laboratory:[facility], [place] [address]VFE, CHEST, 2 VIEWS 2020-08-12 16:53:00Reason for exam:->Malfunction [...] extremity.. IMPRESSION:No acute cardiopulmonary abnormalities. Signed: Meredith Nolen MDReport Verified Date/Time: 08/12/2020 16:53:49 XR chest 2 [id number] 16:53:00Interface, External Ris In - 08/12/2020 4:56 [...] upper extremity..IMPRESSION:No acute cardiopulmonary abnormalities. Signed: Meredith Nolen MDReport Verified Date/Time: 08/12/2020 16:53:49 [facility], [id number] 16:35:00 Test Item Value Reference Range Interpretation Comments ABO/RH AUTOMATED (BEAKER) (test AB POSITIVE code = 2260) Ab Scrn (test code = 890-4) NEGATIVE [facility] + Reflex to Culture 2020-08-12 15:52:00 Test Item Value Reference Range Interpretation Comments Color, UA (test code = Yellow 5778-6) Clarity, UA (test code = Clear 5767-9) Specific Ucon, UA (test 1.027 1.001-1.035 code = 5811-5) pH, UA (test code = 6.0 5.0-8.0 5803-2) Protein, UA (test code = Negative Negative 08551-8) Glucose, UA (test code = Negative Negative 365) Ketones, UA (test code = Negative Negative 2514-8) Bilirubin, UA (test code = Negative Negative 32933-1) Blood, UA (test code = Negative Negative 62935-4) Nitrite, UA (test code = Negative Negative 5802-4) Leukocytes, UA (test code Trace Negative A = 5799-2) Urobilinogen, UA (test 0.2 mg/dL 0.2-1 code = 49910-2) RBC, UA (test code = 0 /HPF 47479-1) WBC, UA (test code = <1 /HPF 5821-4) Squam Epithel, UA (test <1 /HPF code = 69714-1) Specimen Source (test code = 2795) ENE (test code = ENE) Christian Education Director ID - [auto]Christian Education Director ID - tech Lab Interpretation (test Abnormal code = 22508-9) [facility]/ REFLEX URINE [id number] 15:52:00 Test Item Value Reference Range Interpretation [...] = 516) SOURCE(BEAKER) (test code = 2795) Christian Education Director ID - [auto]Christian Education Director [facility] [id number] 15:50:00 Test Item Value Reference Range Interpretation Comments Sodium (test code = 143 meq/L 357-452 5699-2) Potassium (test code = 3.8 meq/L 3.5-5.1 2823-3) Chloride (test code = 106 meq/L 98-107 2075-0) CO2 (test code = 30 meq/L 22-29 H 2027-9) BUN (test code = 12 mg/dL 7-21 3094-0) Creatinine (test code 1.24 mg/dL 0.57-1.25 = 2160-0) Glucose (test code = 97 mg/dL 70-105 2345-7) Calcium (test code = 9.0 mg/dL 8.4-10.2 66675-1) EGFR (test code = 79 mL/min/1.73 [place] [address]-4) NOT ACCURATE CREATININE CLEARANCE IN PREDICTING GLOMERULAR FILTRATION RATE . ESTIMATED GFR I S NOT APPLICABLE FOR DIALYSIS PATIENTS. ENE (test code = ENE) Christian Education Director ID - BS Lab Interpretation Abnormal (test code = 26409-8) [facility] METABOLIC [id number] 15:50:00 Test Item Value Reference Range Interpretation [...] S NOT APPLICABLE FOR DIALYSIS PATIEN TS. Christian Education Director ID - [id number] 15:49:00 Test Item Value Reference Range Interpretation Comments PTT (test code = 58866-1) 33.7 22.5- 36.0 seconds Lab Interpretation (test code = Normal 36048-5) [facility]APTT2020-[facility] 15:49:00 Test Item Value Reference Range Interpretation Comments PARTIAL THROMBOPLASTIN TIME 33.7 seconds 22.5-36.0 (BEAKER) (test code = 760) Prothrombin time/[id number] 15:48:00 Test Item Value Reference Range Interpretation [...] valves. Lab Interpretation Normal (test code = 01885-5) [facility]PROTHROMBIN TIME/[id number] 15:48:00 Test Item Value Reference Range Interpretation [...] heart valves.CBC with platelet count + automated [id number] 15:38:00 Test Item Value Reference Range Interpretation [...] 450 K/CU MM MPV (test code = 83170-6) 11.0 fL 9.4-12.4 nRBC (test code = [...] 2801) Lab Interpretation (test code = Abnormal 81543-5) [facility] W/PLT COUNT & AUTO [id number] 15:38:00 Test Item Value Reference Range Interpretation [...]
[2020-08-21] MEDS ORDERED: FENTANYL CITR 100 MCG/2 ML ONE (19:31)
[2020-08-21] MEDS ORDERED: NA CHLORIDE 0.9% 100 ML IV ONE (19:31)
[2020-08-21] MEDS ORDERED: ONDANSETRON 4 MG/2 ML VIAL ONE (19:31)
[2020-08-21] MEDS ORDERED: METHOCARBAMOL 1,000 MG/10 ML VIAL IV ONE (19:31)
[2020-08-21] MEDS ORDERED: MEPERIDINE HCL 50 MG/ML ONE (20:15)
[2020-08-21] MEDS ORDERED: HYDROMORPHONE HCL 1 MG/ML INJ ONE (21:25)
--- NOTE | 2020-08-21 21:29 | ER ---
Nurse's Notes [facility] Name: Harris Alanis Age: 40 yrs Sex: Male : 1980 Arrival Date: 08/21/2020 Time: 17:10 Bed 17 Private MD: Diagnosis: Mid back pain. S/P pain stimulator surgery Presentation: 08/21 17:24 Chief complaint: Patient states: T-SPINE SURGICAL SITE PAIN SINCE SATURDAY. bp Coronavirus screen: At this time, the client does not indicate any symptoms associated with coronavirus-19. Ebola Screen: No symptoms or risks identified at this time. Initial Sepsis Screen: Does the patient meet any 2 criteria? HR > 90 bpm. No. Patient's initial sepsis screen is negative. Does the patient have a suspected source of infection? Yes: Skin breakdown/wound. Risk Assessment: Do you want to hurt yourself or someone else? Patient reports no desire to harm self or others. Onset of symptoms is unknown. 17:24 Method Of Arrival: Wheelchair bp 17:24 Acuity: SHANIQUE 3 bp Triage Assessment: 17:26 General: Appears in no apparent distress. uncomfortable, Behavior is cooperative, bp appropriate for age, anxious. Pain: Complains of pain in back. EENT: No deficits noted. Neuro: No deficits noted. Cardiovascular: No deficits noted. Respiratory: No deficits noted. GI: No signs and/or symptoms were reported involving the gastrointestinal system. : No signs and/or symptoms were reported regarding the genitourinary system. Derm: No deficits noted. Musculoskeletal: Circulation, motion, and sensation intact. Historical: - Allergies: 17:26 Claritin; bp - Home Meds: 17:26 Abilify Oral [Active]; Ambien CR Oral [Active]; amitriptyline 25 mg Oral tab 1 tab bp nightly [Active]; budesonide 3 mg Oral CECX three times a day [Active]; colestipol 1 gram Oral tab 2 tabs 2 times per day [Active]; EnteraGam 5 gram Oral pwpk twice a day [Active]; gabapentin 300 mg Oral cap 1 cap twice a day [Active]; hydrocodone-acetaminophen 5-325 mg Oral tab [Active]; hyoscyamine sulfate 0.125 mg SL subl as needed [Active]; [place] 5-325 mg Oral tab twice a day [Active]; ondansetron HCl 4 mg Oral tab as needed [Active]; Protonix 40 mg Oral TbEC 1 tab once daily [Active]; tizanidine 4 mg Oral tab 1 tab twice a day [Active]; Valium Oral [Active]; venlafaxine Oral [Active]; Xanax 1 mg Oral tab 1 tab nightly [Active]; - PMHx: 17:26 Anxiety; chroinc back pain; Diabetes - NIDDM; Migraines; nerve pain; bp - Immunization history:: Adult Immunizations up to date. - Social history:: Smoking status: Patient denies any tobacco usage or history of. Screenin:27 Abuse screen: Denies threats or abuse. Denies injuries from another. Nutritional bp screening: No deficits noted. Tuberculosis screening: No symptoms or risk factors identified. Fall Risk None identified. Assessment: 17:27 General: SEE TRIAGE NOTE. bp 19:00 Reassessment: Patient appears in no apparent distress at this time. Patient and/or jb4 family updated on plan of care and expected duration. Pain level reassessed. Patient is alert, oriented x 3, equal unlabored respirations, skin warm/dry/pink. 20:00 Reassessment: Patient appears in no apparent distress at this time. Patient and/or jb4 family updated on plan of care and expected duration. Pain level reassessed. Patient is alert, oriented x 3, equal unlabored respirations, skin warm/dry/pink. 21:21 Reassessment: Patient is alert, oriented x 3, equal unlabored respirations, skin jb4 warm/dry/pink. pt states pain is 7/10 medicated per MAR. IV site intact, patent, flushes easily. Apparatus Engineering Technologist at bedside. 21:34 Reassessment: Patient is alert, oriented x 3, equal unlabored respirations, skin bb warm/dry/pink. pt verbalized understanding of and agrees to plan of care discharge instructions given pt assisted to exit via wheelchair accompanied by head of product Patient states feeling better. Vital Signs: 17:24 BP 126 / 94; Pulse 99; Resp 16; Temp 98.9; Pulse Ox 100% ; bp 20:00 BP 110 / 80; Pulse 84; Resp 16; Pulse Ox 96% on R/A; jb4 21:21 BP 142 / 76; Pulse 75; Resp 16 S; Temp 98.2(O); Pulse Ox 100% on R/A; Pain 7/10; jb4 ED Course: 17:10 Patient arrived in ED. mr 17:11 Fabien Ramirez MD is Attending Physician. kdr 17:18 Dimitri Hardy RN is Primary Nurse. bp 17:25 Triage completed. bp 17:27 Arm band placed on. bp 17:27 Patient has correct armband on for positive identification. Bed in low position. Call bp light in reach. Side rails up X2. 18:17 Fabien Ramirez MD is Attending Physician. kdr 18:28 called and spoke with EARL Chamorro from the [facility] in attempt to get a eb hold of the patients neurosurgeon program director/air personality for patient. 18:40 connected the neuro surgeon program director/air personality for [facility] with Dr. Ramirez for patient eb consultation. 19:20 Inserted saline lock: 20 gauge in right antecubital area, using aseptic technique. wh 19:46 Primary Nurse role handed off by Dimitri Hardy RN jb4 19:46 Taj Looney, FLAVIA is Primary Nurse. jb4 20:05 Attending Physician role handed off by Fabien Ramirez MD pkl 20:05 Herberth Graham MD is Attending Physician. pkl 21:36 IV discontinued, intact, bleeding controlled, No redness/swelling at site. Pressure bb dressing applied. 21:37 No provider procedures requiring assistance completed. bb Administered Medications: 19:27 Drug: fentaNYL (PF) 50 mcg {Note: RASS 0.} Route: IVP; Site: right antecubital; 19:55 Follow up: Response: No adverse reaction; Pain is unchanged, physician notified; RASS: jb4 Alert and Calm (0) 19:29 Drug: Zofran (Ondansetron) 4 mg Route: IVP; Site: right antecubital; 21:20 Follow up: Response: No adverse reaction jb4 19:31 Drug: Robaxin 1 grams Route: IVPB; Infused Over: 1 hrs; Site: right antecubital; 20:30 Follow up: Response: No adverse reaction; IV Status: Completed infusion jb4 20:15 Drug: Demerol 50 mg Route: IVP; Site: right antecubital; jb4 21:20 Follow up: Response: No adverse reaction; Pain is unchanged, physician notified; RASS: jb4 Alert and Calm (0) 21:20 Drug: Dilaudid 1 mg {Note: RASS 0.} Route: IVP; Site: right antecubital; jb4 21:30 Follow up: Response: No adverse reaction; Pain is decreased; RASS: Alert and Calm (0) jb4 Outcome: 21:28 Discharge ordered by MD. garza 21:37 Discharged to home via wheelchair, with friend. pam 21:37 Condition: stable 21:37 Discharge instructions given to patient, Instructed on discharge instructions, follow up and referral plans. Demonstrated understanding of instructions, follow-up care. 21:37 Patient left the ED. bb Signatures: Herberth Graham MD MD pkl Rittger, Kevin, MD MD kdr Rivera, Mary mr SantanaKaela RN RN Taj Gilbert RN RN jbRoberto Estevez Brian, RN RN Evelyn Mcleod
--- NOTE | 2020-08-21 21:29 | EDPHYS ---
Physician Documentation [facility] Name: Harris Alanis Age: 40 yrs Sex: Male : 1980 Arrival Date: 08/21/2020 Time: 17:10 Bed 17 Private MD: ED Physician Herberth Graham HPI: 08/21 20:12 This 40 yrs old Black Male presents to ER via Wheelchair with complaints of Back Pain. pkl 20:12 The patient presents with pain that is acute. The symptoms are located in the mid back. pkl Onset: The symptoms/episode began/occurred 4 day(s) ago. The pain does not radiate. Associated signs and symptoms: The patient has no apparent associated signs or symptoms. The problem was sustained. Patient had pain stimulator implanted implanted in his back on 08/17/20 at [facility]. Has been complaining of pain around surgical site since surgery. Dr. Ramirez spoke to the surgeon and recommended pain control in the ER and he will see the patient in his office tomorrow.. Historical: - Allergies: 17:26 Claritin; bp - Home Meds: 17:26 Abilify Oral [Active]; Ambien CR Oral [Active]; amitriptyline 25 mg Oral tab 1 tab bp nightly [Active]; budesonide 3 mg Oral CECX three times a day [Active]; colestipol 1 gram Oral tab 2 tabs 2 times per day [Active]; EnteraGam 5 gram Oral pwpk twice a day [Active]; gabapentin 300 mg Oral cap 1 cap twice a day [Active]; hydrocodone-acetaminophen 5-325 mg Oral tab [Active]; hyoscyamine sulfate 0.125 mg SL subl as needed [Active]; [place] 5-325 mg Oral tab twice a day [Active]; ondansetron HCl 4 mg Oral tab as needed [Active]; Protonix 40 mg Oral TbEC 1 tab once daily [Active]; tizanidine 4 mg Oral tab 1 tab twice a day [Active]; Valium Oral [Active]; venlafaxine Oral [Active]; Xanax 1 mg Oral tab 1 tab nightly [Active]; - PMHx: 17:26 Anxiety; chroinc back pain; Diabetes - NIDDM; Migraines; nerve pain; bp - Immunization history:: Adult Immunizations up to date. - Social history:: Smoking status: Patient denies any tobacco usage or history of. ROS: 20:12 Eyes: Negative for injury, pain, redness, and discharge, ENT: Negative for injury, pkl pain, and discharge, Neck: Negative for injury, pain, and swelling, Cardiovascular: Negative for chest pain, palpitations, and edema, Respiratory: Negative for shortness of breath, cough, wheezing, and pleuritic chest pain, Abdomen/GI: Negative for abdominal pain, nausea, vomiting, diarrhea, and constipation. 20:12 Back: Positive for pain at rest, of the mid back around surgical site. 20:12 : Negative for urinary symptoms. 20:12 MS/extremity: Negative for acute changes. 20:12 Skin: Negative for rash. 20:12 Neuro: Negative for altered mental status, loss of consciousness. Exam: 20:12 Head/Face: Normocephalic, atraumatic. Eyes: Pupils equal round and reactive to light, pkl extra-ocular motions intact. Lids and lashes normal. Conjunctiva and sclera are non-icteric and not injected. Cornea within normal limits. Periorbital areas with no swelling, redness, or edema. ENT: Nares patent. No nasal discharge, no septal abnormalities noted. Tympanic membranes are normal and external auditory canals are clear. Oropharynx with no redness, swelling, or masses, exudates, or evidence of obstruction, uvula midline. Mucous membranes moist. Neck: Trachea midline, no thyromegaly or masses palpated, and no cervical lymphadenopathy. Supple, full range of motion without nuchal rigidity, or vertebral point tenderness. No Meningismus. Chest/axilla: Normal chest wall appearance and motion. Nontender with no deformity. No lesions are appreciated. Cardiovascular: Regular rate and rhythm with a normal S1 and S2. No gallops, murmurs, or rubs. Normal PMI, no JVD. No pulse deficits. Respiratory: Lungs have equal breath sounds bilaterally, clear to auscultation and percussion. No rales, rhonchi or wheezes noted. No increased work of breathing, no retractions or nasal flaring. Abdomen/GI: Soft, non-tender, with normal bowel sounds. No distension or tympany. No guarding or rebound. No evidence of tenderness throughout. 20:12 Back: pain, that is moderate, of the mid back. 20:12 : Exam negative for acute changes. 20:12 Musculoskeletal/extremity: Exam is negative for acute changes. 20:12 Skin: Exam negative for rash. 20:12 Neuro: Orientation: is normal, Mentation: is normal, Cranial nerves: grossly normal, Motor: is normal. Vital Signs: 17:24 BP 126 / 94; Pulse 99; Resp 16; Temp 98.9; Pulse Ox 100% ; bp 20:00 BP 110 / 80; Pulse 84; Resp 16; Pulse Ox 96% on R/A; jb4 21:21 BP 142 / 76; Pulse 75; Resp 16 S; Temp 98.2(O); Pulse Ox 100% on R/A; Pain 7/10; jb4 MDM: 21:24 Data reviewed: vital signs, nurses notes. pkl 21:28 Patient medically screened. pkl 21:30 ED course: Patient feeling better after Dilaudid injection. Will follow up with his pkl surgeon tomorrow. Administered Medications: 19:27 Drug: fentaNYL (PF) 50 mcg {Note: RASS 0.} Route: IVP; Site: right antecubital; 19:55 Follow up: Response: No adverse reaction; Pain is unchanged, physician notified; RASS: jb4 Alert and Calm (0) 19:29 Drug: Zofran (Ondansetron) 4 mg Route: IVP; Site: right antecubital; 21:20 Follow up: Response: No adverse reaction jb 19:31 Drug: Robaxin 1 grams Route: IVPB; Infused Over: 1 hrs; Site: right antecubital; 20:30 Follow up: Response: No adverse reaction; IV Status: Completed infusion jb4 20:15 Drug: Demerol 50 mg Route: IVP; Site: right antecubital; jb4 21:20 Follow up: Response: No adverse reaction; Pain is unchanged, physician notified; RASS: jb4 Alert and Calm (0) 21:20 Drug: Dilaudid 1 mg {Note: RASS 0.} Route: IVP; Site: right antecubital; jb4 21:30 Follow up: Response: No adverse reaction; Pain is decreased; RASS: Alert and Calm (0) jb4 Disposition: 08/21/20 21:28 Discharged to Home. Impression: Mid back pain. S/P pain stimulator surgery. - Condition is Stable. - Medication Reconciliation Form, Thank You Letter, Antibiotic Education, Prescription Opioid Use form. - Follow up: Private Physician; When: Tomorrow; Reason: Re-evaluation by your physician. - Problem is new. - Symptoms have improved. Signatures: Herberth Graham MD MD pkFabien Ward MD MD kdr Ballard, Brenda, RN RN bb Taj Looney RN RN jb4 Roberto Garcia Brian RN RN bp Corrections: (The following items were deleted from the chart) 21:37 21:28 08/21/2020 21:28 Discharged to Home. Impression: Mid back pain. S/P pain bb stimulator surgery. Condition is Stable. Forms are Medication Reconciliation Form, Thank You Letter, Antibiotic Education, Prescription Opioid Use. Follow up: Private Physician; When: Tomorrow; Reason: Re-evaluation by your physician. Problem is new. Symptoms have improved. pkl
[2020-08-21 21:43] VITALS: O2SAT 100
[2020-08-21 21:45] VITALS: BP 142/76; TEMP 98.2
== END 2020-08-21 21:37 | disposition home or self-care (01) ==
LOC: ER 17:07
DX: M54.9 Dorsalgia, unspecified (principal); Z98.890 Other specified postprocedural states; E11.9 Type 2 diabetes mellitus without complications; F41.9 Anxiety disorder, unspecified; G89.29 Other chronic pain; Z88.8 Allergy status to other drugs, medicaments and biological substances
CPT/HCPCS: 96365; 96375; 99283; J3010; J2175; J1170; J2405; J2800

== ENCOUNTER 2020-09-01 17:33 | Emergency (ER) | payer OTHER ==
[2020-09-01] MEDS ORDERED: ONDANSETRON 4 MG (ODT) TAB ONE (18:38)
[2020-09-01] MEDS ORDERED: MORPHINE 4 MG/ML SYR ONE (18:38)
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
--- NOTE | 2020-09-01 19:14 | ER ---
Nurse's Notes [facility] Name: Harris Alanis Age: 40 yrs Sex: Male : 1980 Arrival Date: 09/01/2020 Time: 17:39 Bed 14 Private MD: Diagnosis: Low back pain-chronic Presentation: 09/01 17:55 Chief complaint: Patient states: low back pain radiating to left hip. Pt states "I had aa5 back surgery for my spinal cord stimulator on 08/17/20". Coronavirus screen: Client denies travel out of the [place] in the last 14 days. At this time, the client does not indicate any symptoms associated with coronavirus-19. Ebola Screen: Patient negative for fever greater than or equal to 101.5 degrees Fahrenheit, and additional compatible Ebola Virus Disease symptoms. Initial Sepsis Screen: Does the patient meet any 2 criteria? No. Patient's initial sepsis screen is negative. Does the patient have a suspected source of infection? No. Patient's initial sepsis screen is negative. Risk Assessment: Do you want to hurt yourself or someone else? Patient reports no desire to harm self or others. Onset of symptoms was August 2020. 17:55 Method Of Arrival: Wheelchair aa5 17:55 Acuity: SHANIQUE 3 aa5 Historical: - Allergies: 17:58 Claritin; aa5 - PMHx: 17:58 Anxiety; Diabetes - NIDDM; Migraines; nerve pain; chronic back pain; aa5 - PSHx: 17:58 Spinal cord stimulator; aa5 - Immunization history:: Adult Immunizations unknown. - Social history:: Smoking status: Reported history of juuling and/or vaping. Screenin:05 Abuse screen: Denies threats or abuse. Denies injuries from another. Nutritional ca1 screening: No deficits noted. Tuberculosis screening: No symptoms or risk factors identified. Fall Risk Gait- Impaired (20 pts.). Total Acevedo Fall Scale indicates No Risk (0-24 pts). Assessment: 18:05 General: Appears in no apparent distress. comfortable, Behavior is calm, cooperative, ca1 appropriate for age. Pain: Complains of pain in low back area Pain currently is 7 out of 10 on a pain scale. Is chronic. Neuro: Level of Consciousness is awake, alert, obeys commands, Oriented to person, place, time, situation. : No deficits noted. No signs and/or symptoms were reported regarding the genitourinary system. Derm: Skin is intact, is healthy with good turgor, Skin is pink, warm \\T\\ dry. Musculoskeletal: Circulation, motion, and sensation intact. Capillary refill < 3 seconds. 19:03 Reassessment: Patient appears in no apparent distress at this time. Patient and/or ca1 family updated on plan of care and expected duration. Pain level reassessed. Patient is alert, oriented x 3, equal unlabored respirations, skin warm/dry/pink. 19:46 Reassessment: Patient appears in no apparent distress at this time. Patient is alert, ca1 oriented x 3, equal unlabored respirations, skin warm/dry/pink. Vital Signs: 17:55 BP 114 / 82; Pulse 90; Resp 18 S; Temp 98.3(O); Pulse Ox 100% on R/A; Weight 87.09 kg aa5 (R); Height 5 ft. 11 in. (180.34 cm) (R); Pain 7/10; 19:00 BP 124 / 82; Pulse 81; Resp 16 S; Pulse Ox 99% on R/A; ca1 17:55 Body Mass Index 26.78 (87.09 kg, 180.34 cm) aa5 ED Course: 17:39 Patient arrived in ED. as 17:55 Arm band placed on. aa5 17:57 Triage completed. aa5 18:00 Alicja Marroquin FNP-C is [facility]. kb 18:00 Negro Batista MD is Attending Physician. kb 18:05 Patient has correct armband on for positive identification. Bed in low position. Call ca1 light in reach. Side rails up X2. Pulse ox on. NIBP on. 18:05 No provider procedures requiring assistance completed. ca1 18:11 Yoli Waite RN is Primary Nurse. ca1 19:22 Inserted saline lock: 20 gauge in right antecubital area, using aseptic technique. ca1 20:06 Report given to FLAVIA Mcmanus. ca1 20:45 IV discontinued, bleeding controlled, Pressure dressing applied. fu Administered Medications: 18:29 Drug: Zofran (Ondansetron) 4 mg Route: PO; ca1 19:51 Follow up: Response: No adverse reaction; Nausea is decreased ca1 18:31 Drug: morphine 4 mg {Note: rass 0.} Route: IM; Site: left gluteus; ca1 19:20 Follow up: Response: No adverse reaction; Pain is unchanged, physician notified; RASS: ca1 Alert and Calm (0) 19:23 Drug: TORadol - Ketorolac 15 mg Route: IVP; Site: right antecubital; ca1 19:59 Follow up: Response: No adverse reaction; Pain is unchanged, physician notified ca1 19:25 Drug: fentaNYL (PF) 50 mcg {Note: rass 0.} Route: IVP; Site: right antecubital; ca1 19:59 Follow up: Response: No adverse reaction; Pain is unchanged, physician notified; RASS: ca1 Alert and Calm (0) 19:27 Drug: Methocarbamol 1 grams Route: IVPB; Infused Over: 1 hrs; Site: right antecubital; ca1 19:59 Drug: Dilaudid 0.5 mg {Note: rass 0.} Route: IVP; Site: right antecubital; ca1 Outcome: 19:14 Discharge ordered by MD. kb 20:24 Discharge ordered by MD. kb 20:45 Discharged to home via wheelchair, with family. fu 20:45 Condition: improved 20:45 Discharge instructions given to patient, Instructed on discharge instructions, follow up and referral plans. Demonstrated understanding of instructions, follow-up care. 20:46 Patient left the ED. fu Signatures: Alicja Marroquin, SMOKING TOBACCO PACKING MACHINE HAND-C SMOKING TOBACCO PACKING MACHINE HAND-CkSharon Hogue Audri RN RN aa5 Yonathan Quiñonez RN RN Yoli Waite RN RN ca1 Corrections: (The following items were deleted from the chart) 19:22 18:05 Patient did not have IV access during this emergency room visit. ca1 ca1
[2020-09-01] MEDS ORDERED: FENTANYL CITR 100 MCG/2 ML ONE (19:38)
[2020-09-01] MEDS ORDERED: METHOCARBAMOL 1,000 MG/10 ML VIAL IV ONE (19:38)
[2020-09-01] MEDS ORDERED: KETOROLAC 30 MG/ML INJ ONE (19:39)
[2020-09-01] MEDS ORDERED: NA CHLORIDE 0.9% 100 ML IV ONE (19:39)
[2020-09-01] MEDS ORDERED: HYDROMORPHONE HCL 0.5 MG/0.5 ML INJ ONE (20:05)
[2020-09-01 20:56] VITALS: TEMP 98.3
[2020-09-01 20:57] VITALS: BP 124/82; O2SAT 99
--- OUTSIDE RECORDS SUMMARY | 2020-09-02 05:24 | XMS REPORT | Clinical Summary ---
:1980 Author Organization [facility] Address [address] [place] [address] Care Team Providers Name Role Phone Pcp [...] tablets by 30 tablet 0 08/17/2020 08/27/2020 ne (TYLENOL-CODEINE mouth every 4 #3) 300-30 mg per (four) hours as tablet needed for Pain for up to 10 days. Max Daily Amount: 12 tablets HYDROcodone-acetami Take 1 tablet by 30 tablet 0 08/17/2020 nophen (NORCO mouth every 6 (six) 10-325) [...] MD 08/12/2020 Travel 08/03/2020 Emergency Emergency Medicine Thestruivone, Michael l ow back pain, MD Will unspecified anna k pain laterality, uns pecified whether sciatic a present (Primar y Dx) 08/03/2020 Travel after 09/01/2019 Social History Tobacco Use Types Packs/Day Years [...] VACCINE (#1) 2020 Implants Implanted Type Area Track Inspector Device Identifier Shelf Model / Expiration Serial / Date Lot Mri Intellis Sensor [id number] - [id number] IMPLANTS Right: Back M EDTRONIC:NEURO [id number] 07/08/2021 [id number] / Implanted: Qty: 1 on 08/17/2020 by Miguel Calderon MD MODULATION [id number] / Lead Vectris Surescan 1x8 60cm [id number] - [id number] IMPLANTS N/A: Spine MEDTRONIC:NEURO [id number] 06/10/2024 [id number] / Implanted: Qty: 1 on 08/17/2020 by Miguel Calderon MD Thoracic MODULATION [id number] / Lead Vectris Surescan 1x8 60cm [id number] - [id number] IMPLANTS N/A: Spine MEDTRONIC:NEURO [id number] 06/10/2024 [id number] / Implanted: Qty: 1 on 08/17/2020 by Miguel Calderon MD Thoracic MODULATION [id number] / Procedures Procedure Name Priority Date/Time Associated [...] 376 ms QTC Calculation(Bazett) 425 ms P Redmond 53 degrees R Redmond 43 degrees T Redmond 37 degrees Normal sinus rhythm Normal ECG [...] in viral disease the results section. after 09/01/2019 Results RHYTHM STRIP - SCAN (08/19/2020 8:40 [...] patient radiation dose information. Performing Organization Address City/State/[facility] Cent[facility] Phone Number GE RIS Tissue Exam (08/17/2020 8:40 AM CDT) Case Report Surgical Pathology Report Case: [id number] [facility] [employer] Authorizing Provider:Miguel Neal MDCollected: 08/17/2020 08:40 AM [facility] Ordering Location: [facility] PERIOPERATIVE Received:08/17/2020 10:07 AM SERVICES Pathologist: Eboni Renner MD Specimen:Other, Spin al Cord Stimulator; for ID only DIAGNOSIS A. SPINAL CORD STIMULATOR, REMOVAL: innRoad - SUPERVISOR SPECIAL EDUCATION FOR GROSS IDENTIFICATION ONL Y [facility] Signing Pathologist Direct Phone Line: CPT Code(s) 86874 [facility] [employer] [facility] ER CLINICAL HISTORY Preop diagnosis: innRoad Malfunction of spinal cord [facility] stimulator, initial encounter. SPECIMEN SOURCE Other [facility] [employer] [facility] ER GROSS DESCRIPTION Received fresh labeled with the patient's name, accession number and "spinal cord stimulator" is a 5.2 x 5.2 x 0.8 cm metallic duran-piece of hardware, which is consistent with with a neural stimulator, [facility] and a 8.0 x 4.5 x 0.4 cm agg regate of metallic duran tubing. The following inscription is identified: [facility] [employer] [facility] SureScan MRI SN [id number] A gross photograph is taken. No sections are submitted. This case is for gross examination only. PA/pl MICROSCOPIC DESCRIPTION NA [facility] ER Specimen Tissue - Other Performing Organization Address City/State/Zipcode Phone Number [facility] [address] [place] [address] CENTER TRANSFUSION SERVICE REPORT - SCAN (08/13/2020 6:04 PM CDT) Narrative Performed At This result has an attachment that is no t available. XR chest 2 views (08/12/2020 3:37 PM CDT) Specimen Narrative Performed At FINAL REPORT GE [employer] TECHNIQUE: Frontal and lateral views of the [...] Date/Time: 08/12/2020 1 6:53:49 Performing Organization Address [facility] [place] Phone Number [employer] RIS ECG 12 lead (08/12/2020 3:19 PM CDT) Specimen Narrative Performed At Ventricular Rate 77 BPM GE MUSE Atrial Rate 77 BPM P-R Interval 120 ms QRS Duration 88 ms Q-T Interval 376 ms QTC Calculation(Bazett) 425 ms P Redmond 53 degrees R Redmond 43 degrees T Redmond 37 degrees Normal sinus rhythm Normal ECG No previous ECGs available Confirmed by MD JOLLY YOCHAI ([id number]) on 08/14/2020 4:27:36 PM Procedure Note Interface, External Ris In - 08/14/2020 4:27 PM CDT Ventricular Rate 77 BPM Atrial Rate 77 BPM P-R Interval 120 ms QRS Duration 88 ms Q-T Interval 376 ms QTC Calculation(Bazett) 425 ms P Redmond 53 degrees R Redmond 43 degrees T Redmond 37 degrees Normal sinus rhythm Normal ECG No previous ECGs available Confirmed by MD JOLLY YOCHAI ([id number]) on 08/14/2020 4:27:36 PM Performing Organization Address [facility] [place] Phone Number [employer] MUSE SARS-CoV2/RT-PCR ([facility]) (08/12/2020 3:14 PM CDT) SARS-COV2/RT-PCR Negative Not Detected, Negative, [facility] See external report for MEDICAL CENTER linked test SARS-COV-[address] [facility] Specimen Other Narrative Performed At Negative result for this test determines that [facility] SARS-CoV-2 RNA was not present in [...] the Act. Fact Sheet for Healthcare Providers: https://www.[employer]/sites/default/files/pro duct/documents/Fact_Sheet_HC_Providers_Lyra_SA RS-CoV-2.pdf Fact Sheet for Healthcare Patients: https://www.[employer]/sites/default/files/pro duct/documents/Fact_Sheet_Patients_Lyra_SARS-C oV-2.pdf Performing Laboratory: [place] [address] Performing Organization Address City/State/[place] [address] CENTER Urinalysis w/Microscopic + Reflex to Culture (08/12/2020 3:14 PM CDT) Color, UA Yellow [facility] Clarity, UA Clear [facility] Specific [place], UA 1.027 1.001 - 1.035 [facility] pH, UA 6.0 5.0 - 8.0 [facility] Protein, UA Negative Negative [facility] Glucose, UA Negative Negative [facility] Ketones, UA Negative Negative [facility] Bilirubin, UA Negative Negative [facility] Blood, UA Negative Negative [facility] Nitrite, UA Negative Negative [facility] Leukocytes, UA Trace (A) Negative [facility] Urobilinogen, UA 0.2 0.2 - 1.0 mg/dL [facility] RBC, UA 0 /HPF [facility] WBC, UA <1 /HPF [facility] Squam Epithel, UA <1 /HPF [facility] Specimen Source [facility] Specimen Urine Narrative Performed At Test Architect ID - [auto] [facility] Test Architect ID - tech Performing Organization Address [facility] Centercode Phone Number [address] [address] CENTER Type and screen, automated (08/12/2020 3:14 PM CDT) ABO/RH AUTOMATED (AMOS) AB POSITIVE [facility] Ab Scrn NEGATIVE [facility] Specimen Blood Performing Organization Address City/[facility]/Zipcode Phone Number [address] [address] CBC with platelet count + automated diff (08/12/2020 3:14 PM CDT) WBC 5.9 3.5 - 10.5 K/L [facility] RBC 5.45 4.63 - 6.08 M/L [facility] Hemoglobin 15.5 13.7 - 17.5 GM/DL [facility] Hematocrit 49.7 40.1 - 51.0 % [facility] MCV 91.2 79.0 - 92.2 fL [facility] MCH 28.4 25.7 - 32.2 pg [facility] MCHC 31.2 (L) 32.3 - 36.5 GM/DL [facility] RDW 13.2 11.6 - 14.4 % [facility] Platelets 232 150 - 450 K/CU MM [facility] MPV 11.0 9.4 - 12.[address] [facility] nRBC 0 0 - 0 /[address] [facility] % Neutros 67 % [facility] % Lymphs 27 % [facility] % Monos 6 % [facility] % Eos 1 % [facility] % Baso 0 % [facility] # Neutros 3.90 1.78 - 5.38 K/L [facility] # Lymphs 1.57 1.32 - 3.57 K/L [facility] # Monos 0.33 0.30 - 0.82 K/L [facility] # Eos 0.03 (L) 0.04 - 0.54 K/L [facility] # Baso 0.01 0.01 - 0.08 K/L [facility] Immature Granulocytes-Relative 0 0 - 1 % C [facility] Specimen Blood Performing Organization Address City/State/Zipcode Phone Number [facility] [address] [place] [address] CENTER aPTT (08/12/2020 3:14 PM CDT) PTT 33.7 22.5 - 36.0 seconds [facility] Specimen Blood Performing Organization Address [facility] Cent[facility]ode Phone Number [address] [address] [place] Prothrombin time/INR (08/12/2020 3:14 PM CDT) Protime 13.4 11.9 - 14.2 seconds [facility] INR 1.05 <=5.90 [facility] Specimen Blood Narrative Performed At Effective 04/22/2019: PT Reference Range [facility] Change New: 11.9-14.2Previous: 11.7-14.7 RECOMMENDED COUMADIN/WARFARIN INR THERAPY RANGES STANDARD DOSE: 2.0-3.0Includes: PROPHYLAXIS for venous thrombosis, systemic embolization; TREATMENT for venous thrombosis and/or pulmonary embolus. HIGH RISK: Target INR is 2.5-3.5 for patients wiht mechanical heart valves. Performing Organization Address [facility] Centercode Phone Number [address] [address] [place] Basic Metabolic Panel (08/12/2020 3:14 PM CDT) Sodium 143 136 - 145 meq/L [facility] Potassium 3.8 3.5 - 5.1 meq/L [facility] Chloride 106 98 - 107 meq/L [facility] CO2 30 (H) 22 - 29 meq/L [facility] BUN 12 7 - 21 mg/dL [facility] Creatinine 1.24 0.57 - 1.25 mg/dL [facility] Glucose 97 70 - 105 mg/dL [facility] Calcium 9.0 8.4 - 10.2 mg/dL [facility] EGFR 79Comment: ESTIMATED GFR IS mL/min/1.73 sq m [facility] NOT ACCURATE CREATININE [facility] CLEARANCE IN PREDICTING GLOMERULAR FILTRATION RATE. ESTIMATED GFR IS NOT APPLICABLE FOR DIALYSIS PATIENTS. Specimen Blood Narrative Performed At Test Architect ID - BS [facility] Performing Organization Address City/State/Zipcode Phone Number [facility] [address] [place] [address] CENTER after 09/01/2019 Insurance Payer Benefit Plan / Group Subscriber ID Type Phone A ddress CDC REVIEW CDC REVIEW xxxxxxxx [address] [place], [place] [phone] MEDICAID MEDICAID [facility] xxxxxxxxx Medicaid Advance Directives For more information, please contact:[facility] [place] [address] [phone] Code Status Date Activated Date Inactivated Comments Full Code 08/17/2020 7:15 AM 08/17/2020 8:26 PM This code status was determined by: Patient
--- OUTSIDE RECORDS SUMMARY | 2020-09-02 05:25 | XMS REPORT | Continuity of Care Document ---
:1980 Author Organization [facility] t Address [address] [place] [address] Care Team Providers Name Role Phone Pcp Primary Care Physician Unavailable Heron DEMPSEY Attending Clinician Niko Hui MD Attending Clinician HERON Attending Clinician Unavailable Pcp Attending Clinician Unavailable Ramona DEMPSEY Attending Clinician William BONDS Attending Clinician Baudilio Fiore MD Attending Clinician HERON Admitting Clinician Unavailable Payers Payer Name Policy Policy Number Effective Expiration Source Type Date Date CDC REVIEWCDC xxxxxxxx [facility] [place] [address] [facility] MEDICAIDMEDICAID OF xxxxxxxxx [facility] [place] [facility] Problems Condition Condition Condition Status Onset Resolution Last Treating Co mments Source Name Details Category Date Date Treatment Clinician Date Malfunctio Malfunctio Disease Active [facility] 08[facility]17 [facility] spinal spinal 00:00: Medical cord cord Center stimulator stimulator Allergies, Adverse Reactions, Alerts Allergy Allergy Status Severity Reaction(s) Onset Inactive Treating Comm ents Source Name Type Date Date Clinician Suzie Romero Active Other (See anxiety [facility] ne ty to Comments) 04-30 [facility] - adverse 00:00: Medical reaction 00 Center s Social History Social Habit Start Date Stop Date Quantity Comments Source History SDOH Alcohol [facility] - Std Drinks [facility] History SDOH Alcohol [facility] - Binge [facility] Sex Assigned At [facility] History SDOH Alcohol 2020-08-03 2020-08-03 1 [facility] Luvincent - Frequency 00:00:00 00:00:00 Medical Center Smoking Status Start Date Stop Date Source Never smoker [facility] edical Center Medications Ordered Filled Start Stop Current Ordering Indication Dosage Frequency Signature Comments Components Source Medication Medication Date Date Medication? Clinician (SIG) Name Name acetaminoph 2019- 2020- No 1{tbl} Take 1-[address] en-codeine -16 09- tablets by Yancy Gannon (TYLENOL-CO 00:00: 23:59 mouth Medi lino DEINE #3) 00 :00 every 4 Center 300-30 mg (four) per tablet hours as needed for Pain for up to 10 days. Max Daily Amount: 12 tablets HYDROcodone 2020- No 1{tbl} Take [address] -acetaminop - 10- tablet by Yancy lopez (NORCO 00:00: 23:59 [...] mouth Medic al hr capsule 10 daily. [place] ARIPiprazol 2020-0 Yes 10mg QD Take [address] e (ABILIFY) 9-18 by mouth Luke s - 10 MG 08:29: daily. Medical tablet 10 Center butalbit/ac 2020-0 Yes Take by [facility] etamin/caff 9-18 mouth. [facility] - /codeine 08:29: Medical (BUTALBITAL 10 Center -ACETAMINOP -CAF-COD ORAL) diazePAM 2020-0 Yes 10mg Take [address] [...] Source Systolic blood 2020-08-17 14:20:00 118 mm[Hg] [facility] Diastolic blood 2020-08-17 14:20:00 79 mm[Hg] [facility] Heart rate 2020-08-17 14:20:00 74 /min [facility] Body temperature 2020-08-17 14:20:00 36.39 Gabriela [facility] Respiratory rate 2020-08-17 14:20:00 18 /min [facility] Oxygen saturation in 2020-08-17 14:20:00 99 /min [facility] Arterial blood by Medical Ce nter Pulse oximetry Body height 2020-08-17 06:00:00 182.9 cm [facility] Body weight Measured 2020-08-17 06:00:00 85.1 kg [facility] BMI 2020-08-17 06:00:00 25.44 kg/m2 [facility] Procedures Procedure Date / Time Performing Clinician Source Performed RHYTHM STRIP - SCAN 2020-08-19 08:40:25 Provider, Default [facility] [place] FLUORO NON-SPECIFIC UP 2020-08-17 09:16:00 Cornell Calderon [facility] - TO 1 HOUR [facility] TISSUE EXAM 2020-08-17 08:40:00 Miguel Calderon [facility] REVISION/ 2020-08-17 08:00:00 Miguel Calderon [facility] - REPLACEMENT,SPINAL Medical Cente r NEUROSTIMULATOR LEAD(S) PROCEDURE W/ C-ARM 2020-08-17 08:00:00 Heron, Miguel [facility] TRANSFUSION SERVICE REPORT 2020-08-13 18:04:04 Provider, Default [facility] - - SCAN [facility] XR CHEST 2 VIEWS 2020-08-12 15:37:00 Heron, Miguel [facility] ECG 12-LEAD 2020-08-12 15:19:21 Unknown, Hl7 Doctor [facility] SARS-COV2/RT-PCR ([facility] & 2020-08-12 15:14:00 Miguel Calderon [facility] - REF LABS) [facility] BASIC METABOLIC PANEL (7) 2020-08-12 15:14:00 Heron [facility] grady [facility] URINALYSIS W/ REFLEX URINE 2020-08-12 15:14:00 Odilon Calderon [facility] APTT 2020-08-12 15:14:00 Heron, Miguel [facility] PROTHROMBIN TIME/INR 2020-08-12 15:14:00 Heron Miguel [facility] TYPE AND SCREEN, AUTOMATED 2020-08-12 15:14:00 Odilon Calderon [facility] CBC W/PLT COUNT & AUTO 2020-08-12 15:14:00 Miguel Calderon [facility] Plan of Care Planned Activity Planned Date Details Comments Source Future Scheduled 2020-07-26 INFLUENZA VACCINE [facility] - Test 00:00:00 (#1) [code = Medical Center INFLUENZA VACCINE (#1)] Future Scheduled [address] [facility] s - Test 00:00:00 (procedure) [code = Medical Center [id number]] Encounters Start End Encounter Admission Attending Care Care Encounter Source Date/Time Date/Time Type Type Clinicians Facility Department ID 2020-02-19 2020-02-19 Emergency William [facility] [id number] 20:56:33 21:37:00 Fabien Gómez [id number] [place] [id number] [place] [id number] 2020-02-13 2020-02-13 [facility] [id number] 05:38:10 06:52:00 Jayden Gómez [id number] [place] [id number] [place] [id number] Results Test Description Test Time Test Comments Results Result Comments Source Tissue Exam 2020-08-17 13:00:00 Test Item Value Reference Range Interpretation Comme nts Case Report (test code = 104) Surgical Pathology Report Case: [id number] Authorizing Provider: Miguel Calderon MD Collected: 08/17/2020 08:40 AM Ordering Location: [facility] PERI[facility] Received: 08/17/2020 10:07 AM SERVICES Pathologist: Eboni Renner MD Specimen: Other, Spinal Cord Stimulator; for ID only DIAGNOSIS (test code = 3220) a1najKEjXYLxd5mbZOIypBSpLpXzBvGmMgHaCj pc bRFkFRuluxLgXBado5AaE3AnNtPzUZhicaRwLCUc SrolfhrcYAUjWEB3kcWhWGGdNOmtXDHgORswAf7e eVObsAenNgFxOSFsl5kccvIXalfmfAv9f9zbHWJh NsC2qYQkORycX8vzagIsxJLiXLDkZCn4mV89FSUf pJ0fbSHdXQhaesBkDEqxooVrcyKyBax0MTYwN2kp FJXqLZJqG2TiPX3uXYYiOnt6GYK3ZSD3wEkra7K5 zYKnxUQuxUvmHxTjTlRkYWJFk8UsNCa4yWybT4Hy MIJsWeE4jOIuXIOiUYvkJLBuSAKvzsD5aL52XRqt frO8rPEzs6Uuw67wl854jA8hiZUqIRP4JEEhUWTo sBUxYOFqYHR4BPKnvWKmH0o2AjJyfBGbB9F6ClTi fQAnD5S1YeTapYPrF6C3KdHvkJUcUWJuwZVdOg8e bNNakVJlvq6nul03WCB4x1AdmCfoGEQ3ABY9UwHp Td9dpJDaEQZfVA9gDiXapBPoYLFutb46bHnfKTrr wnBtpQ0aLtWyKPBawUDmRKMlLD7qfXNbZMWxuL9n olmiGJSqSiZhkyecHORvmEouyqOvLy1qfRhjZTY6 YRxfS3yruW2hYlC2NXlnB6yoyR7xTTq6PZzqkPL9 PZVyaH3uSN6etuvin2rqMvYmLR1mveaiw4dgYsUb WD1hcfb5x0phBxZpOC1uteulz7tnByIjYVorWCCk tvlpLWNxj2GubwvpMSZui7AuS1SdrDyyT67zqXjp E90rLHTquKzjkZ0goFiojG5yLxSfWwDuXNpjaXqs vUGaobswEYiudbBaDIVaXOvpLUCeFIMdVeLpBK8x Z6ZDHoGSSWBDYgDcQ1GYGAOQFQIZUzafMiLPI7FU ZRelwKWjWKHvKFVcXZBCPMVRUFDDTQHJJ9KqBh8Z PYgXA5ELCBoQYI4ADPPDZ3GRTF4KGK6TNIwmLMZv jzmyOZD0s4llqJDuKPRvxMMpRYSxDGaxgkAeJKOe ZldxpmzrNBCoDCC1jaLaNPMxIWbcUXPaRYaaSu7n jRRsuYoxPjFsVIXgc0owifLZtvshsPc2v0uoSOLv PwP2uODxXWqiJ9dmzrXurXUuSFVnMXu0gG38TVAw oM5urJLlNHlfneHeEdA1OQshRRZmLoH1VBSboFEn VACfD1mgFYUjTJobYZDwVGgodVOwQSB5cWuyz4P1 vILhxVKpqMmhFzJkGhYcQxTYv8LbQAh5bMsuZ2Jd TKFfMqK4rTNnZMOwZKwoEYLsDDOikzP0bO97NYuy ftW0uAZsp1Eyd90bd951yR0qbIEnGAA1EWHsIYYs jWDvMWGhKYJ9EJTakQMyQ0bfKXZsCN4cnhxeKUja TBwjRPEpqFU0NBKwkOYmK4XeXFZkGGmgBLQodaz8 PxKjTa7njFAtpAxmTUyqz4rpp7galGGiMlx9DLLc WyQdVzwoPWihv0Eub7iqTAKepe1bNUS5qTLozErt l2Y4vWIrDDRliYTkTXDlXV0nwDEjWVFjwL2ufily MQGxAxJipveoHCFeaDanjeHoXe6woOzmLJC8RZim G7fiuD3kXgG3MDjqS7qdsH8gCKp1HCevIRLayML0 xeQ5JLXfiOZzI5DpnY8lTLBjPO2ztvb1s4vcNJF0 DXxbZGGoIpB9rwC1UXAviWRtOEJybQcmVKxmx130 ORH2LySgQNXkq4FkN0OqlOzqB83gpZqaH92pAUIg pSoxcI6fdQlnxR3uCrIkNuJrPOfdnDtoDP9mHQAc Z5qxiHTdHSOqZTNbL9trTuCzwC0xxWptTUpmwjDw SMUwUyq2UOHxqPXqZFQcHks9LISpFHGvJ77ubsgy TUJ0vT7yz0etg7OjDGrpXIE2JIVnk34qPQaaqvT4 YPhoKt7sAMRuGep9AKnyHLA0tP== CPT Code(s) (test code = 3357) a6jgfKAnSNYegVSeBvSyGQVhWGBll1ocKSCv bGFu UuNhDqAtXtJgHigktBBrKPCgMaUjc9hnd604xBKt o4iiXKByKvZ7kHVmIMRvzQGnV948n4fnv4uqacZd tWK5DNKxZAC5ITdopgMlsvO6OJndzWOhIqH3PNsm vnNeFKvylyOopwLaTpf6RNTpU660FFF6jCcpn1yy EQB0INVlMENnEjVcHn6xsGKyB999LKYkKLWLRSZt pOz1CMLmdlVqddKmmAABp150L082f3bcGGKdwvNl vBwUzvslu0usX668AOLybHHztuJnLxUiMPRbyDAq iCR1OGErEF8byhgjZbPpIA8evjanUeIxMZ9dknu1 TwYiSR4opjmsZfXoTYtfWKLdigrhNBTjc3Asxbvl CS9zT3Gor8N8gS0iiXSkFGMjzJBuQcBnLIGczj8t vNFkFZggk8WfCWM9kbL1gJKflZLgOBWzHJ31Keql r4WcFyzyNDD5ZVZohxRlg3Eck2lmAuWrztKmS6by M7PeNHOoFEFyAHFsAiAeatNvx7Nac6QhbAZwzKe4 d2mqSZWvPGFjjAycw9fcGEJ0IYPeQ2Z0xHTmx3dg AHyoZWCvcSC8fcmcBGmdJIPxtpH1fpsdXHykBPYz sZN0npwaOCfaXLUyLgD5behdTSjzCSZuIVL4ASmf n101PED6CMweUhdxXGczFPJdrsBcljVaqXueLZZo PNFvSLzsFYQgMQliJAXwGDZcBgFhyUwcqEtufE1u VsJiUkHbIJwtBV1hIGJzQ2dqkRXjPELvIYTmK6wh VsZrwA0drCtyTAuxpiTsKNo8DzHsYDHrsf2= CLINICAL HISTORY (test code = 3356) f6quyUXuJIAarFJoQsTvRIBeYMKyx4f cZGVmbGFu LiMmTdDwWxCyYwnobSLpMKLvEoDce1xgd690sSZt f9xtCQQxVuO1zLPhEINrmIZoR973a7ebv9wibnHp aZF0XDBgOGJ5TCgifyHcacP1FLqyeUGlIkR0DSpi neZsJOkmonUvxcUlFql8PGKoC041EMK2dKzay7da LJG4DGQcXXBpGaQxRc2dkODiB339BSXpKANLXGDa bDa0VZIkjePohjXsdFHXk406Q004f0esKAPmrqKu gIxXimllg9muH732CKKijKMbnnJqHhPoJLYftSPq qBE6IHKlSS3dpqorKwKmGA7mzgohNxTlOM0ipum0 OuPfHN4nkdryXgQpMPioOKHilzhzBWCct8Xlvgkc GL3uF3Nsk8O3eX8ckRBkWRYltTGnBoYpDIPqxk0s eOYpYYgia4PgPQN9pxC4gMEdeOUdQICmHF06Zyqd v9NpKnpjRET9UACoilNei8Msk6ipTfCaazZlJ6ro B1FmZSAlAQNnROMtKyTwcdSny7Aym7BloQInvEh5 d5jdOQUjJYZswBylt8kqFAB3LYByV3I5gBQuu1dw JQalNYGijQD4vqgiJSzqUORstcO1fymqAMgkEWOk sWG0wxejXMncBMViDdO8bwrcQUduYDKhINO5KDcg k797MIU3LQmhTbinNMswETCkvyJvstDokCuePVGn CLFbUXawVSOkSJrgKMZzEQWkViOgfZztlTopgL6p VdTcXgCaRUaaOR3aTUDdH7qfbYPzANFzNXKvP4ps DtJrfV7gfEwuFIixacTtAWIiBO0bJCIwYVdbq1Wc rqzuNJ1vgLN7nfR2aP7sPX4dZCVkgJ0cdNWsv2Vc BER1gO90kDG7w1PkLIrffKLfBQglLV7pl1FxpHMd LiBccGFyfQ== SPECIMEN SOURCE (test code = 3377) e7crfMKgEPQwbEZkWqCzWUAiHBXfr5zm ZGVmbGFu TpYkWeAtLfMkFyqytDIxADFkScLer3hoz662wBUk w7sqYGGpJmG6iKLbDABruVHqK508p3kne8hmnaYw jXE2QHQeEZX2XYsyxmRekqS4ETmzuYFrApT1GTzg maLsPZiphdDdvdGlKfc4PZAwR144TDA4yWxju8xm SMK4MSYzCJLtCsNoVj3ldXBeA561ANElLKNIHQOp cPb0IETvjlPyitErvXGWw660V850e7mgRNHhmgSn zIbPhitka1xiA178SMBgbXErsgMzQnBnWNKzvWWn sJP9UBNlNP3gflsbEpSuTT5mfzeaYpXxOY7nrme6 FfPfCK3khpviVkEgWOpzJLRmotrpEGXqz7Sqduuq YB0lN7Wkz2A4vC8egCRyEMXphOYjEkZrLXApae9c sPShZMidl2BqKUZ1wrB7dGRkzGCaSBBzBC37Kecq l7CzExhyNUX5TOGhitNda9Okz0kmZjUmteRfP7gi Y5NhSZEiOCIzGSChEcBmlwKim0Meo7LifUKmuKl7 v9wwZKXiGJQthLhde7otKNF8YLAlW0E2gTZeg0mk HTyzZDEsvZD6yaydMWbxFKXkchW3praiYShdEXVj yKT5krzxCPzwJVDfQiM2irofRVkhGLTlOVE8LWsw i328VNC4HWguJdqnXVueGFYvpqLjtxBguOcwNTPo XBUlANsuTDQjYAicPBZrXFBxTtSjdMokzXuguP2h NxPrUfXtMQreVU2hHUIvS8tkrYQyEESaHWZaE8be UgJimU6eyXsxNGkdzfUvJN95qQJnNJGtkz0= GROSS DESCRIPTION (test code = 3366) g8olrHMdKOOtbITnErElABBiXGGur3 lcZGVmbGFu WtJhQkWgAuRiDkzrtDCiAQAoUiZlo3smf724yIJe m7ywPEKdOzR2qJQbNDXtxMDhQ896FBFfOGinb0ct g0MmKRDzcQUgd3N6FEROezzyiYc2hZwmE50yy8H7 FacaF8orVHEcAOzsOOPtAPfppCTtLAH5XTBkWJG8 SFdzdaPdwjP2RXzyyMIwRkR3XNx3o5kmtJnaSLIc UGP2b8ppQZvlvjByQQ4hxf7fcIc7g3fywmXzAELa PVVxiQFZCTQdJ9HwjZhkDt4nvXt5sTyoMrdcQWJ8 Wac6FY8nxf48bwg3kFsbDPDeoxifBlC5FKguCLCh mkeuLFc0PKvyVMPvlRmlPFqpRLXuuqwoDXgwSEHx iYxfOVvhOCHbZxrnCSdgJZPmZQF5NHstj564MHE4 PCecv2nwr3gsaQNaKsy8ZGWnCoUyCvajDVyxl8Jm g9nvKTUvpe3iUQG6tKCucEaar3L1sHBrRDMroKWn vbKqJJErFbQ7LRmcBL8ruu35CADpFMY9zy4vzNIz eEnjpyTloFWmMFtwQ0NfNQLow916UAWvS3WlABEc h5E0tcZwSwSgTWFwfWU9doL7PSVpOMh9uXLbfmL2 gfNmbBEaC4prtL01LoFhdORcR2NvnX54FeXerYWs K1MgfE33ZhUhgBYuR1HwfW60ZvUrmXGxBLDvdIUp Mx5pwMVciKVqw1TmeWVjHRblL39sm399OXYpocHx N4ndxAZlgtdusYPzafmoXRremwOsXZLwZBKoJLvr SNSlADZdHfCzbOnriT0vFxFfUwBuWINMLEYesZDt ZCBmcmVzaCBsYWJlbGVkIHdpdGggdGhlIHBhdGll ayBhnsZvPJ4lATPpF9Aar3War78wssGmNqNqPOCw XDPys4RpvxLoYVJqcdCty0YsiETyZJUuqxYlaEEm YAY6TiOdtKG8OcArpQUtOoofF45dlFI6LTsfhKAg C8TttM3xzGOuOCQcTfDnQDEqw6KzKSzhb9wpY7mb nDZbQ47yl6ydrAGugRT1eFJbCCzdlSpaRBGdZALq PCeaj4KplLSrMFLzbemgEO4fYCMcNO7hEOokSL27 ERqmQM06HHIwWYYwZ3WhL9F7AVOmLzOhHTYgmQoz HdUyhiF5LHR4LuexVh5zQYdhYFRpgAodq7htDcQb bnNjcmlwdGlvbiBpcyBpZGVudGlmaWVkOlxwYXJc rRFyDO5mLRJxu06kU8fcHICtStWnoZ5gHGWQVM68 QQEldKFdGCG2yfRNL1UiRD3PZOthJBSvV03uNy3I TbFlAtCaZMxvFSVcfESuHCZbP0Dvu8YnjCdjiU6h xvRklNVqvmA7NBkudt0tHv6ao6PifOijggTwYSHp VYK1Rc2dyGNuBA3zPQqlczGsFRTcCEqfIUZqhzKe go8qmlClxTZiqH2dhAxbyrZbtjs6JhBhJFGzaEbw IFxwYXJ9 MICROSCOPIC DESCRIPTION (test code = p1clxUMcYIGazGJiUuIeTBYwFCJqv0 [place] [address]) RoDcCnCuEgKqKqrckFYqMOJrWkBzc5wyj513aCGh r6jxYWRhErV4uQNuQYPwnDWrQ034o5dqe6lwhsEj aZL9JQAxLJK3YGovhrVutuQ4OUzvcYZvFiO3WEal vkKeKSeubkCicdQqJae1OOFfA003FPD7sOhtq6cq CAM9JCQxXUGoBjZdHd7wbYTeX264NBCkRRWUPCZf pNc4JIFkygLsypUvxYNAf586U030c5hzTVImjyJx sUgJcfxer7cxQ583KDEtqYXdozTvXdEoUYDzmYLf xST8CGQvNQ5teehpYeZoQS2qmxxqZqGxWV8qxqx4 HaXrTN7njzwsKeVuLAltECKhjymfAKFgz5Slgvga RI9oY6Nvg2R0dG3dwOAxMBDiuXVtUiCnTQJrla9m vIRoGOmms7GlOFE3vvB5kTAomUVcGEJnCP76Qylt k8DxHjknQBI6BGMtcyRdr3Ipp2mgKlTihhNuZ5nj A6JzGZWuSTKxQOLtUeJtrqSdx9Yag9CeyVSsyJt8 g2qjULBaBUNnqHvex3rgGQS8EKBnL0L7nIJuy3vh PVttVYIswGD9gbmuLRudNHEpkuD7ucbmWObeZQOs pCW2zxxeKUmrVYDaRsL8xluqFPztQRNkOWY9NTco s045ERH6HTtaPaogJAefGFKqntRubcBftKjrSEQs AAKjQLxiRLEiGWajBGMeUFScWrPpbNxsvFoprS5q DhZlPhNmRNcxJQ7oHEGtA4pavUCaFMKhEXTxF5nz BtDynQ6bnOccDEmlivWoXF3POJShbo6= [facility] [id number] 13:00:00Surgical Pathology Report Case: [id number] Authorizing Provider: Miguel Calderon MD Collected: 08/17/2020 08:40 AM Ordering Location: [facility] PER[facility] Received: 08/17/2020 10:07 AM SERVICES Pathologist: Eboni Renner MD Specimen: Ot her, Spinal Cord Stimulator; for ID only A. SPINAL CORD STIMULATOR, REMOVAL: - BINDER OPERATOR FOR GROSS IDENTIFICATION ONLY Signing Pathologist Direct Phone Line: [phone] signed by Eboni Renner MD on 08/17/2020 at 1:00 [id number] diagnosis: Malfunction of spinal cord stimulator, initial encounter. OtherReceived fresh labeled with the patient's name, accession number and "spinal cord stimulator" is a 5.2 x 5.2 x 0.8 cm metallic duran-piece of hardware, which is consistent with with a neural stimulator, and a 8.0 x 4.5 x 0 .4 cm aggregate of metallic duran tubing. The following inscription is identified:[facility] MRISN [id number] gross photograph is taken. No sections are submitted. This case is forgross examination only. PA/pl NAFL, FLUORO, NON-SPECIFIC, UP TO 1 [id number] 09:16:00Reason for exam:- >Spinal Cord Stimulator RevisionFluoroscopic unit utilized for a procedure performed in the OR. No interpretation was requested. Refer to the operative report for findings. Refer to PACS for patient radiation dose information.FL fluoro non-specific up to 1 [id number] 09:16:00Interface, External Ris In - 08/17/2020 12:03 PM CDTFluoroscopic unit utilized for a procedure performed in the OR. No interpretation was requested. Refer to the operative report for findings. Referto PACS for patient radiation dose information.[facility] [id number] 16:27:41Interface, External Ris In - 08/14/2020 4:27 PM CDTVentricular Rate 77 BPMAtrial Rate 77 BPMP-R Interval 120 msQRS Duration 88 msQ-T Interval 376 msQTC Calculation(Bazett) 425 msP [place] 53 degreesR [place] 43 degreesT [place] 37 degreesNormal sinus rhythmNormal ECGNo previous ECGs availableConfirmed by MD RIK, SARAH ([id number]) on 08/14/2020 4:27:36 [facility] 2020-08-13 22:54:00 Test Item Value Reference Range Interpretation Comments SARS-COV2/RT-PCR Negative Not Detected, (test code = Negative, See 08883-0) external report for linked test SARS-COV-2 [facility] PERFORMING LAB (test code = 70134-9) ENE (test code = Negative result for [...] of the Act. Fact Sheet for Healthcare Providers:https://www.Source Audio/sites/default/f amy/product/documents/F act_Sheet_HC_Providers_L ejy_APCB-EnC-5.pdf Fact Sheet for Healthcare Patients:https://www.[employer].TrustedCompany.com/sites/default/fi les/product/documents/Fa ct_Sheet_Patients_Lyra_S ARS-CoV-2.pdf Performing Laboratory:[facility] [place] [address] [facility])2020-08-13 22:54:00 Test Item Value Reference Range Interpretation Comments SARS-COV2/RT-PCR (test Negative Not Detected, Negative, code = 7628874) See external report for linked test SARS-COV-[address] [facility] (test code = 6438291) Negative result for this test determines that [...] 564(g) of the Act.Fact Sheet for Healthcare Providers:https://www.[employer].com/sites/default/files/product/documents/Fact_Shee u_ZU_Rochbbghd_Hozo_IPBF-YpR-0.pdfFact Sheet for Healthcare Patients:https://www.[employer].com/sites/default/files/product/ documents/Jiwz_Byisl_Fgjyqpym_Hetx_DNHF-NxK-7.pdfPerforming Laboratory:[facility], [place] [address]PHU, CHEST, 2 VIEWS 2020-08-12 16:53:00Reason for exam:->Malfunction [...] Verified Date/Time: 08/12/2020 16:53:49 XR chest 2 [id number] 16:53:00Interface, External Ris In - 08/12/2020 4:56 [...] Meredith Peña MDReport Verified Date/Time: 08/12/2020 16:53:49 [facility]Type and screen, [id number] 16:35:00 Test Item Value Reference Range Interpretation Comments ABO/RH AUTOMATED (BEAKER) (test AB POSITIVE code = 2260) Ab Scrn (test code = 890-4) NEGATIVE [facility] + Reflex to Culture 2020-08-12 15:52:00 Test Item Value Reference Range Interpretation Comments Color, UA (test code = Yellow 5778-6) Clarity, UA (test code = Clear 5767-9) Specific [place], UA (test 1.027 1.001-1.035 code = 5811-5) pH, UA (test code = 6.0 5.0-8.0 5803-2) Protein, UA (test code = Negative Negative 68618-9) Glucose, UA (test code = Negative Negative 365) Ketones, UA (test code = Negative Negative 2514-8) Bilirubin, UA (test code = Negative Negative 20722-6) Blood, UA (test code = Negative Negative 19486-2) Nitrite, UA (test code = Negative Negative 5802-4) Leukocytes, UA (test code Trace Negative A = 5799-2) Urobilinogen, UA (test 0.2 mg/dL 0.2-1 code = 57706-4) RBC, UA (test code = 0 /HPF 14560-3) WBC, UA (test code = <1 /HPF 5821-4) Squam Epithel, UA (test <1 /HPF code = 14990-8) Specimen Source (test code = 2795) ENE (test code = ENE) Residential Specialist ID - [auto]Residential Specialist ID - tech Lab Interpretation (test Abnormal code = 23679-0) [facility]LEX URINE [id number] 15:52:00 Test Item Value Reference Range Interpretation [...] = 516) SOURCE(BEAKER) (test code = 2795) Residential Specialist ID - [auto]Residential Specialist ID - [facility] Metabolic [id number] 15:50:00 Test Item Value Reference Range Interpretation Comments Sodium (test code = 143 meq/L 159-904 0749-2) Potassium (test code = 3.8 meq/L 3.5-5.1 2823-3) Chloride (test code = 106 meq/L 98-107 2075-0) CO2 (test code = 30 meq/L 22-29 H 8-9) BUN (test code = 12 mg/dL 7-21 3094-0) Creatinine (test code 1.24 mg/dL 0.57-1.25 = 2160-0) Glucose (test code = 97 mg/dL 70-105 2345-7) Calcium (test code = 9.0 mg/dL 8.4-10.2 64217-9) EGFR (test code = 79 mL/min/1.73 [place] [address]-2) NOT ACCURATE CREATININE CLEARANCE IN PREDICTING GLOMERULAR FILTRATION RATE . ESTIMATED GFR I S NOT APPLICABLE FOR DIALYSIS PATIENTS. ENE (test code = ENE) Residential Specialist ID - BS Lab Interpretation Abnormal (test code = 34266-9) [facility] METABOLIC [id number] 15:50:00 Test Item Value Reference Range Interpretation [...] I S NOT APPLICABLE FOR DIALYSIS PATIEN Residential Specialist ID - [id number] 15:49:00 Test Item Value Reference Range Interpretation Comments PTT (test code = 51205-7) 33.7 22.5- 36.0 seconds Lab Interpretation (test code = Normal 21670-5) [facility]TT[facility] 15:49:00 Test Item Value Reference Range Interpretation Comments PARTIAL THROMBOPLASTIN TIME 33.7 seconds 22.5-36.0 (BEAKER) (test code = 760) Prothrombin time/[id number] 15:48:00 Test Item Value Reference Range Interpretation [...] valves. Lab Interpretation Normal (test code = 15874-5) [facility]PROTHROM[facility]/[id number] 15:48:00 Test Item Value Reference Range Interpretation Comments PROTIME (SHAISTAAKER) (test code = 13.4 seconds 11.9-14.2 759) INR (AKER) (test code = 370) 1.05 <=5.90 Effective 04/22/2019: PT Reference Range ChangeNew: 11.9-14.2 Previous: 11.7- 14.7RECOMMENDED COUMADIN/WARFARIN INR THERAPY RANGESSTANDARD DOSE: 2.0-3.0 Includes: PROPHYLAXIS for venous thrombosis, systemic embolization; TREATMENT for venous thrombosis and/or pulmonary embolus.HIGH RISK: Target INR is2.5-3.5 for patients wiht mechanical heart valves.CBC with platelet count + automated [id number] 15:38:00 Test Item Value Reference Range Interpretation [...] 450 K/CU MM MPV (test code = 42668-6) 11.0 fL 9.4-12.4 nRBC (test code = [...] 2801) Lab Interpretation (test code = Abnormal 82331-6) [facility]/PLT [facility] & AUTO [id number] 15:38:00 Test Item Value Reference Range Interpretation [...]
== END 2020-09-01 20:46 | disposition home or self-care (01) ==
LOC: ER 17:33
DX: M54.5 Low back pain (principal); G89.29 Other chronic pain; Z88.8 Allergy status to other drugs, medicaments and biological substances; Z87.891 Personal history of nicotine dependence
CPT/HCPCS: 96375; 96372; 96374; 99283; J3010; J1170; J2800

== ENCOUNTER 2020-09-07 20:43 | Emergency (ER) | payer OTHER ==
--- OUTSIDE RECORDS SUMMARY | 2020-09-07 20:46 | XMS REPORT | Continuity of Care Document ---
:1980 Author Organization [facility] t Address [address] [place] [address] Care Team Providers Name Role Phone Pcp Primary Care Physician Unavailable Heron DEMPSEY Attending Clinician Niko Hui MD Attending Clinician HERON Attending Clinician Unavailable Pcp Attending Clinician Unavailable Ramona DEMPSEY Attending Clinician William BONDS Attending Clinician Baudilio Fiore MD Attending Clinician HERON Admitting Clinician Unavailable Payers Payer Name Policy Type Policy Effective Date Expiration Date Sour ce Number [facility] [id number] 2020 JUICE Luque [id number] 00:00:00 [place] [address] MEDICAIDMEDICAID OF [id number] 2020 JUICE Yu [id number] 2020 00:00:00 - Medical -PresentMedicaid Center Problems Condition Condition Condition Status Onset Resolution Last Treating Co mments Source Name Details Category Date Date Treatment Clinician Date Malfunctio Malfunctio Disease Active C HI [facility] n of n of 08-17 [facility] - spinal spinal 00:00: Medical cord cord [...] Stop Date Quantity Comments Source History SDOH [facility] - Alcohol Std Drinks [facility] B[facility] Sex Assigned At [facility] Exposure to Not sure [facility] - SARS-CoV-2 (event) [facility] Tobacco use and 2020-08-17 2020-08-[address] [facility] St Yu - exposure 00:00:00 00:00:00 [facility] Center Alcohol intake 2020-08-17 2020-08-17 [facility] non-drinker of Medical Ce nter alcohol (finding) History SDOH 2020-08-03 2020-08-[address] [facility] vincent - Alcohol Frequency 00:00:00 00:00:00 [facility] Smoking Status Start Date Stop Date Source [facility] smoker [facility] Medications Ordered Filled Start Stop Current Ordering Indication Dosage Frequency Signature Comments Components Source Medication Medication Date Date Medication? Clinician (SIG) Name Name HYDROcodone Yes 1{tbl} Take [address] -acetaminop 9-23 tablet by [place] - hen (NORCO 18:26: mouth Medica l 5-325) 46 every 6 Center 5-325 mg (six) per tablet hours as needed for Pain. zolpidem 2019-0 Yes 12.5mg Take 12.[address] (AMBIEN CR) 9-23 mg by [facility] - 12.5 MG CR 18:26: mouth Medica l tablet 46 every Center night as needed for Insomnia. ondansetron 2019-0 Yes 4mg Take [address] (ZOFRAN) 4 9-23 by mouth 2 [place] - MG tablet 18:26: (two) Medical 46 times Center daily as needed for Nausea. budesonide 2019-0 Yes .25mg Q.5D Take 0.[address] (PULMICORT) 9-23 mg by [facility] - 0.25 mg/2 18:26: nebulizati Me dical mL 46 on 2 (two) Center nebulizer times solution daily. diazePAM Yes 10mg Take [address] (VALIUM) 5 - by mouth [facility] - MG tablet 18:26: every 6 Medic al 46 (six) Center hours as needed for Anxiety. venlafaxine 2019-0 Yes 150mg QD Take [address] (EFFEXOR-XR 9- mg by [facility] - ) 150 MG 24 18:26: mouth Medic al hr capsule 46 daily. Center ARIPiprazol Yes 10mg QD Take [address] [facility] (ABILIFY) - by mouth Luke s - 10 MG 18:26: daily. Medical tablet 46 Center butalbit/ac Yes Take by [facility] etamin/caff - mouth. [facility] - /codeine 18:26: Medical (BUTALBITAL 46 Center -ACETAMINOP -CAF-COD ORAL) acetaminoph 2020- No 1{tbl} Take 1-[address] en-codeine 08-17 10-03 tablets by Yancy Gannon (TYLENOL-CO 00:00: 23:59 mouth Medi lino DEINE #3) 00 :00 every 4 Center 300-30 mg (four) per tablet hours as needed for Pain for up to 10 days. Max Daily Amount: 12 tablets HYDROcodone 2020- No 1{tbl} Take [address] -acetaminop 08-17 10- tablet by Yancy lopez (NORCO 00:00: 23:59 mouth Medic al 10-325) 00 :00 every 6 Center 10-325 mg (six) per tablet hours as needed for Pain for up to 10 days. Max Daily Amount: 4 tablets Vital Signs Vital Name Observation Time Observation Value Comments Source Systolic blood 2020-08-17 14:20:00 118 mm[Hg] [facility] Diastolic blood 2020-08-17 14:20:00 79 mm[Hg] [facility] S t [facility] Heart rate 2020-08-17 14:20:00 74 /min [facility] L [facility] Body temperature 2020-08-17 14:20:00 36.39 Gabriela [facility] Respiratory rate 2020-08-17 14:20:00 18 /min [facility] Oxygen saturation in 2020-08-17 14:20:00 99 /min [facility] - Arterial blood by Medical Ce nter Pulse oximetry Body height 2020-08-17 06:00:00 182.9 cm [facility] Body weight 2020-08-17 06:00:00 85.1 kg [facility] BMI 2020-08-17 06:00:00 25.44 kg/m2 [facility] Procedures Procedure Date / Time Performing Clinician Source Performed RHYTHM STRIP - SCAN 2020-08-19 08:40:25 Provider, Default [facility] [place] FLUORO NON-SPECIFIC UP 2020-08-17 09:16:00 Cornell Calderon [facility] - TO 1 HOUR [facility] TISSUE EXAM 2020-08-17 08:40:00 Heron, [facility] REVISION/ 2020-08-17 07:41:00 Miguel Calderon [facility] - REPLACEMENT,SPINAL Medical Cente r NEUROSTIMULATOR LEAD(S) PROCEDURE W/ C-ARM 2020-08-17 07:41:00 Heron Miguel [facility] TRANSFUSION SERVICE REPORT 2020-08-13 18:04:04 Provider, Default [facility] - [facility] XR CHEST 2 VIEWS 2020-08-12 15:37:00 Heron [facility] ECG 12-LEAD 2020-08-12 15:19:21 Unknown, Hl7 Doctor [facility] SARS-COV2/RT-PCR ([facility] & 2020-08-12 15:14:00 Heron Miguel [facility] - REF LABS) [facility] BASIC METABOLIC PANEL (7) 2020-08-12 15:14:00 Heron, [facility] grady [facility] URINALYSIS W/ REFLEX URINE 2020-08-12 15:14:00 Odilon Calderon [facility] APTT 2020-08-12 15:14:00 [facility] PROTHROMBIN TIME/INR 2020-08-12 15:14:00 Heron [facility] TYPE AND SCREEN, AUTOMATED 2020-08-12 15:14:00 Odilon Calderon in [facility] CBC W/PLT COUNT & AUTO 2020-08-12 15:14:[address] [facility] Plan of Care Planned Activity Planned Date Details Comments Source Future Scheduled 2020-07-26 INFLUENZA VACCINE [facility] Test 00:00:00 (#1) [code = [facility] INFLUENZA VACCINE (#1)] Future Scheduled 2017 Lipid panel [facility] Test 00:00:00 (procedure) [code = [facility] [id number]] Encounters Start End Encounter Admission Attending Care Care Encounter Source Date/Time Date/Time Type Type Clinicians Facility Department ID 2020-02-19 2020-02-19 Emergency [place] [id number] 20:56:33 21:37:00 Fabien Gómez [id number] [place] [id number] [place] [id number] 2020-02-13 2020-02-13 Emergency [facility] [id number] 05:38:10 06:52:00 Jayden Gómez [id number] [place] [id number] [place] [id number] Results Test Description Test Time Test Comments Results Result Comments Source Tissue Exam 2020-08-17 13:00:00 Test Item Value Reference Range Interpretation Comme nts Case Report (test code = 104) Surgical Pathology Report Case: [id number] Authorizing Provider: Miguel Calderon MD Collected: 08/17/2020 08:40 AM Ordering Location: [facility] Received: 08/17/2020 10:07 AM SERVICES Pathologist: Eboni Renner MD Specimen: Other, Spinal Cord Stimulator; for ID only DIAGNOSIS (test code = 3220) o0wmyUVbIUBba0bzLQBhrLDuTwKuQeUuTnWzKs pc cTDjFCphrfGgDQkkc0UtL1LaMxLrZJtrueLlIBVr QmpybaetNNZxHZZ8bhDyJOJcQQpcXFVkKLpvKe3j zLYehZzaTjKaFNQah6abcvTIbvsbmEg4d4xbPMAm ImB5uBIsXFzqY5jwvdPblGMzCWEcJDz5qJ03TNDz pJ2mzVFhQJlmqmEsUCwhoyZvptDpFlx8SIIbA4cm YETzQJLdE2XmKN0bLGKzKtb1DLM3GQR8xEqoz5E0 fSGlzVUnjFkpTcUjRmNnLWPBk7MuDXd6kQeoT2Is SVMhEdM9cOOsGRHsAVkzEBTcPESqdlH9xE99XOuw thI7qBTxs9Dex36za167qX5yoBYqBLR6NUViDQNq bSSrBUUlTMB1HFPmhCGoV5n7LrBvhAOeS2G6GdYp gCVbE1K0FeAjoVEmW9B7WzOgmVEnYPKulPYbLf1i mFQmpGWmkl9lxm74MTW2j3BwwLjoEKC0RYC8VzRs Cv0czVGjXNEcHS7cWpPnvONdMZJwfb68aGwaEJym asLvuG4uIlIwIYWmuJOmXMEmVN0ymWRaUVTtvR3m xesgKWLaUzVaumwtXYNahJwqxnJtGf9jaFkkHRM2 NVmtV7qkkN9uEoV0MJrwM0wcxI3pMGy4ZKcafEH9 AOFzoA3xJW3xpxhjr9zvNoXiMY9dpwxda9woPsZn TH0cgqu1k5wwZwVwCU6kcskhl1gkVlFsIWicOWNu kylgBPOhd4XhfvafBRFgr0YkS7LwsYihV28ldNkb Z07oMSMrgFccaG2hvEzstS0sOfYjCaCaIJygbOdw zQLwawhiGQcdtgVqXDRkBUdjDGEwJTUaTpUpZZ0a H3NBGlKHVIYSEuZkL8SCNACKOWKGIcwjAxRNA0QP YMvzyGCwZGEjAQQyXWODLDLKYIYJDNBRQ9LzIr1R FOuPO4TPZLtBOO0UUQTBZ8ZJYS4XSQ8CRSzwRJGy iqtfUDJ6h8jxxLUyPLBmuLDmALUwJRtfkcRsKTPs MqgklnreNZOwSSC5obAdOEYfBVsbRGIuPRaiJt2u xGPbgNjcMgPxFBNhk4ybotNNutpdfGu2p5efTYKv WoZ3eDTfCQekC6rnzkOwuBSfMCDkVPe0iF29KSLo vA9euXNrHFgtbyRvDwI1CShkZKPkQqF3FRWmmMLl EBYpK8ewDWAwEJqkMRSnNTsmwZNhTJF2zAhyo2E1 mHCmmNRgfUtiYnNdNuPgArUMb5QgHGp4oIssM6Qq KSNtTcK8dRLjSISuKRxzGKRgJMYyxmQ8lA66DJbv cpY8qOObu1Yzc16sd561cC0bgMUdLCQ0HWXnUYLh pMZiYYLhVKJ1IRPhoDFwW4jrOELkDB4rfodnSFhw JAxsLOTapXG5UZPqcAAyI9CvDNGhGWltDHFyriu2 SfHoEv3faFZiyVlwQLrij8qck7ltpECbQdw9BSLp DzGhRjddXLwwr1Uia5lxDAOdif2cUGS0tLPckSeq l1V0dQVcHCVhkSYrUMKeJL3qiPOwUKFyfR1hxrdz ASPmQoQamjhfRYYdsCzsnzMkPd8emUbdFWH5RQbm C4scrQ0aPdT9PBmgY8kwvY0xGNl0OCdaFZPdyPI6 bsE0KZPclSFlM9HqoV6xWQGpBM8hbxs6i9tiNWM0 ZQszSOOpTmS1ryE4MUMzgNSsMVUdbXdpCQtyt938 OWH8PvRfKEHob5LgG0YqvCbmI40brTkcD61uPLOz wBexpK7jhVdyyQ3jNeRvZcOgIQgntZhiEX2iQNKx J8dywICpUZBkNFXuY5bzXjYpxD8ljLbnWRrarcJf YHFxZxf4YLKfhUWcFDCkYau8JOZqLPJzV73duied YGZ2hQ0cj0ejf4TcEAhwLTL9AEIrz93iHBarxzR5 TPgsMd2uNYAgGqt7MZvyGAK7fO== CPT Code(s) (test code = 3357) p6hstRVyPKTycHDiXlIdBFBgQAEvj8xfZVLt bGFu QxMtKzKxSnPkDebyrVZgNJCqNhPso9ncp799tRCy z8ofNOUdPgB9hVVkQEDydKCgU457v1fyc4bfhcWz aKQ5WOCtLYA9RFpicsQkxmG6ZSsntMRpSjG6ZPuk luAgVKbywlLcakJnTte0ZBCxK225FPC3kEejt7eq LKV6CKVzVFUcBpRtBc5etZBhM022PEGmDRTUUHWa lGy5CIFdfnGhynQcsVGQg487Y792s4yrYZHjluXe qRzWtyuly7zkQ085RECofNJzjlIpZdBzJNTgeCAa aVD5RTCbQK1arlioLqBdJU9evyfmInTxHA1ecsw1 UhStVB8zpeqpQbYxGZciLBUmraihJZTez0Hsxwjp DU0bZ3Vjj0H0iQ1kcTOmBFFcpQUyVjQgZVHrbo7d pVYpEKwum7KlWJX6wiV0qBKghNWgSITyWC21Aien d2LkNxwdZNK3QIDttcMew9Dlw7pkVgSkglTaJ3hv Z6WjYIWaUTGaIFChWxMyofIbm4Ttc0RmaRUuvRn5 i2zyHSNjJIFbzYjka5rrGFL8GPGgQ8M9jWWlo2jn UNpsHLTtyPX5aboiOLomBWYhloK2kiwoDDuiOFWg zEA3arowROweLRAjGbG1elbgXBgpPUPoBAQ3BUcc h148IXI7BKfwVaimAOtpTUYwepBsnaIvxObkYQSd XTWcYPoqOLHfOGikUIPaIPGwVgWynNadzNjngB7h CmDqXuJxRYchKP8rCQKlH7awiMDpZVHsMKXhC0in YvZokK3wdOrjFQebxpWzZWo4FzOqBDYrwk0= CLINICAL HISTORY (test code = 3356) h4xcwYJtGEEmhRFdEbUmDKHhDTHok4h cZGVmbGFu FeTkTbDiPiBmQbcnaRSfKTYnZkUmj0mja654fIXv r6iyYBCkYrJ9qPDlCTNepZIwN639u5ukb2cypkZc vMD0QRZwUIY7XXdikaAtvhT9HBysoJZzIqD9DBme tqNlSEcokgVkjjJbPpo5RZRmD713ETM7tFrkz5jz MRB3TRZcXSWbOxCaSr4ygNWaS113XFEyIKVKAQHh iJj9BKBakiRgmkRasUJPa909S492c4xhSIDwseKo xXgZapbcv2paS314AAAfpXYxzzUeBmXeBVJiiUAl oJT8FFScMS9okpayLzTqLP9rihyeChLdXQ7sneo8 AlUmOV5rbyviXkCqNRdpIWFphmtdQGGre1Vusqpu FC1xI1Cwg3X1rM4rgVMsOMTqtZMjZdUqCVTjil2m dMYhPMzyx4WrIEX8unJ5oMExpEWmROSsRO30Itrk r2WgDtapYAB7FCFaywJjq8Clw0fhRrKllqCjQ8hz G5NzJEMlTWGnXGRiEpSevkRdn4Uaa8XkgLGdwBm9 n9unTHEjARJoqVapg3ndWGK7QGYzJ3M5tQIrl1lu PWdlJYNyoEI0svsqSKvzJTAsjkS5wpdrTDbiAEUt jJY1ggxtKTryJBFrIyS7qxcjJErnIULmERM8DDpg v980MPO6KLkcEptoPEchQNMqypMbtiZxeSicMEBx EWAgOBtmEKVnFPuhXSIiRCRsRaQfmBhpxAvmoC8d MdVhSeHwNCgjSL9pHPRmG1zrrKPxRQGfCNSwE2dt DgYjnE3cqYyxZGtolwYiUMToOK7uGSUxOGhff0Hp yoanTN4fzYG4cvB8dI1gFI1hNPCevY7ymTJxk0Ut VCI4iQ84eJK0s4XiOHftwODtFPurDP5pd8StjYAr LiBccGFyfQ== SPECIMEN SOURCE (test code = 3377) t5dyxKVyRBImoHEaZvGmNJZaYSXcz2xm ZGVmbGFu EkVkBnKbYuVbOgdsoJCeJVIoCeRlf3sep590wWKs q0jwPZQzNtG4sLIqEVEneKXnI311t1yed8oocsTy eFY1LUIuDIC2MUgrobProdK7RYsqlNVrKlD6TMqg elXhMHzkflEsjuQcAzm1ZKBaB578WUS2lDekp0hb YAF9OWUfYUBsDeRfId4leQGmO496JKAjKAQTKWRf fIm9UJCtfgKexmVjcJJSc313I540z1dgKIFodbEx vEcVkzied5qdJ987SFOalEYpbuBnAbIkNPCgiBPm cMA5IDCcPB0nvsumRrPkMO5rlsqdSpJfOC7uuwr7 ZfCkOX7fpgqiCwFxBAyiZXPegeofGEEpk6Khdkaw EI2qH4Tfl6T6oV8zbRVpRZQteHCuPqJkEHJvde6c fWRrXWipa7VrZGW0seS8bWMbyTLbGIFoCV77Hcwn q5YrFvzcHTD2MGPkazUxl2Uom1ekUfXljwTqA0li H8KoWMMrOGIyUEIxXbXfovXtg4Uen0DlsLAxxEh7 r4bbXOJxVINqxTzbj5dyXUL7MRAnC3S7iWHxg5cu HQiaQMSgkAI3nydsVLaiZZYljcT9fyynQXipHPRx jAW7lfroKZhzWNFwVpG9seyhZRziBMHuNLU2SRwj c231NVQ3VUruRjkaJWjuVZHtuuOegcMvdDdtSNAq NJMpYGqpSTYhKStvCNOxNWUtVqUljPvdtMpnzB7b IzRhWaYeJCblUP5sUKMbU2nvkEFdFLAmPTXfD0rc AeMgbH6blTiwPDxxtyLaQV28fRWeGHJoxr1= GROSS DESCRIPTION (test code = 3366) o5fvzMObEPKqaVKeLsArKYJiTFJpw5 lcZGVmbGFu GiJhOtJyUaUqKmrfiYOaTNTiLjLsv7fmr110mTBx n3wyVVHbJxE6gTCbPWYrzIAjH852AMUdZVhlc1ja d0SyIKEruGJva9Y1YZOFfbjteEy0tJglM63es2I8 OazdP8lkYLRdVTtuYBKjAWblyKKmTUN3SEGfGWK6 AGhtgzGiemA8PLmtuFJqKmH7PTv1x6yalPrhKGXs PWV5s4poVKnynfDtDG3glj2agCf1k8rssvKqSYCl OQZcuWMDEERyG0WbfRibDj2wpZe4pYmnVadoMNK7 Efq5VL4mqe44nyn3hAeuMOUhhiryQzE6LAcnRKYk yqzrPAh0VGubWLYzlBzpMKccFNAzmrohRImkPYZb hByuFTdgJCIkEfbbFTjsIOHpBRV7GYxsa533EHY4 WJnhg0bjy8aygHJkCqh2PVYaSvScSrntNYwpy6Zb k4ylFBDmvx1vYUC8hVCyfRwiv4Z2vRDrPYRmeBOn qpNhTOKzHlT8ZWivPA1nyz58FTUhMDN6vl9unNCf xFthqpPcoQPvWRemP4SxOUXvx690UPZeG9JyVYOj c9T9chVjEzLtIWVviLO2xcL4VMBrSEv9mYLaxlG8 ocSgySJtU4difR92WwNzuMPgK2OqfR34QpIpgOQo B4WftE98ZaIyrWUtI1MqvR46EkMzjXYrGNPsiYSt Ny3jvGPaoYKsr6LwyGAqBJytQ76ow735LFMbbjNl F2jrpFOzwpzdqWSoqjmwUNjgxjBgHNWnDMLgBHmk JZByGIXvAaIvqUgciX7gTsKhHrZjLKSAKWSjpCQb ZCBmcmVzaCBsYWJlbGVkIHdpdGggdGhlIHBhdGll sfWdglSsFG8aRSWlC0Qkd6Tnb85nzbQmWxLtMYSa XZRru6VwdxWzVELkzpEdm4WdxSGoICMgkwLxbFBb CQZ0ApFtsNL4JeWbqENgIbnyM94byMR8MVcfxOCq K3DpaV6ggONmUVYsSoKsKYOlh2JpVXjbm6tnC2ed rYVxI74ro6xijYSpjGO0qBNvOIbnaJmzDLMsYYPf VDeee0YtvSTuFIFavyulMD2bOOOcYG8tRRwcUW05 DSyvUC80KJRfAQFqS4AxQ2Z8GWLgKvOyIQQbxVym MwWnbkY7SIE4VorwGo0iLXudCUDqlShzp6qfDhOx bnNjcmlwdGlvbiBpcyBpZGVudGlmaWVkOlxwYXJc qWWpKY3sGFVtj49wL8cdEDJpThVtnH3mOLFTKP80 VHGcdAOxTOU1ueCDK1MnCL7HZXqmTCAwC26jCd4Y AfPnBqWyZMotYDFrdPXtIVHqH7Buc7TnoYiddY6t onBvfSEzimW2YSbdzu9hSh5lg5NefUkqicYbJFHz GAJ2Ye2diVImXT9dGZbnmwJxHTLvTXilNALikoQm oe7beoMvrVSpuO1jiHiytpUuolq5NyVmKPEtwSat IFxwYXJ9 MICROSCOPIC DESCRIPTION (test code = g0gztYCkWTVtkRZlHmMsCNGgKCBss5 [place] [address]) OyTrOtRsPyYoQwybiLZvDGSkKmOwq9gwf442jAJe m1txGNMlEjZ0eYQhVIIaxSBnX394x6kgl4nhpbTl oRT2ZNEoLWH1WElqluMnvyW7FZxzyUEzBnL5RIle vtHyPSvwlgRazfKoAzi1SFSsE138ATN2mKbpa4ha DLQ8LTBiNEBjUoSkHw0bfVPwE520AJWzNNAQRGGn oFq2NADlvnYhlnRoxGFGi566Y035p2acCZWezqJe bFfPrppzf6ghU401IQAjzNBjkhUkLrKmUQCwkSRb fMO8JJSjHU4gpeikAbUxET0xzitbXhEgBJ8fkfm1 EjKpGN7whhzbKgTeVFvuVSMntdawOKRqw5Pswxlr QV8xJ3Rhq0V3tU1zxOCwOIXyxKJtYyEgPKFfod0e sTVbEIdly7RcTHO5qzD2lMYfeIQrNSEnLR14Wirr m8OnGxbdISI4ZZZeypGbf6Vtc4tiLsXcaaWhT6dj G2LwHNOfQZBjTDEsXaVgvvKfu4Hpb3AunBTvbIn4 o7tuFBQsNUCsqYgzu5slEZT1OWOuG3X5qIGho9zq YSinCUThiNX5hqsfTBppAEEepcY9ahmiEOevTWNg vFZ1hhhpFGdeFLTsSgC4ngxcANugXQEyPNV9YMvn j642BLP7XVinKbbkQLwzFONkazVaafPspMopKNNd LBOjJDxjJAGdMGytGBGwVGSoVnSjqMqghZwcmA9t GwMcSyBiSNohCD6xXTOuR1xhmMLzFOMgLICiG7cz YtBkiB8djBhoXNfzonHkGC5HLUZyuz2= [id number] 13:00:00Surgical Pathology Report Case: [id number] Authorizing Provider: Miguel Calderon MD Collected: 08/17/2020 08:40 AM Ordering Location: [facility] Received: 08/17/2020 10:07 AM SERVICES Pathologist: Eboni Renner MD Specimen: Ot her, Spinal Cord Stimulator; for ID only A. SPINAL CORD STIMULATOR, REMOVAL: - TELETYPE MECHANIC FOR GROSS IDENTIFICATION ONLY Signing Pathologist Direct Phone Line: [phone] signed by Eboni Renner MD on 08/17/2020 at 1:00 [id number] diagnosis: Malfunction of spinal cord stimulator, initial encounter. OtherReceived fresh labeled with the patient's name, accession number and "spinal cord stimulator" is a 5.2 x 5.2 x 0.8 cm metallic duran-piece of hardware, which is consistent with with a neural stimulator, and a 8.0 x 4.5 x 0 .4 cm aggregate of metallic duran tubing. The following inscription is identified:[facility] MRISN [id number] gross photograph is taken. No sections are submitted. This case is forgross examination only. PA/pl NAFL, FLUORO, NON-SPECIFIC, UP TO 1 [id number] 09:16:00Reason for exam:- >Spinal Cord Stimulator RevisionFluoroscopic unit utilized for a procedure performed in the OR. No interpretation was requested. Refer to the operative report for findings. Refer to PACS for patient radiation dose information.FL fluoro non-specific up to 1 [id number] 09:16:00Interface, External Ris In - 08/17/2020 12:03 PM CDTFluoroscopic unit utilized for a procedure performed in the OR. No interpretation was requested. Refer to the operative report for findings. Referto PACS for patient radiation dose information.[facility] [id number] 16:27:41Interface, External Ris In - 08/14/2020 4:27 PM CDTVentricular Rate 77 BPMAtrial Rate 77 BPMP-R Interval 120 msQRS Duration 88 msQ-T Interval 376 msQTC Calculation(Gagezeangelita) 425 msP Anna 53 degreesR Anna 43 degreesT Anna 37 degreesNormal sinus rhythmNormal ECGNo previous ECGs availableConfirmed by MD RIK, SARAH ([id number]) on 08/14/2020 4:27:36 [facility] 2020-08-13 22:54:00 Test Item Value Reference Range Interpretation Comments SARS-COV2/RT-PCR Negative Not Detected, (test code = Negative, See 49996-3) external report for linked test SARS-COV-2 [facility] PERFORM[facility] (test code = 39407-9) ENE (test code = Negative result for [...] of the Act. Fact Sheet for Healthcare Providers:https://www.[employer]/sites/default/f amy/product/documents/F act_Sheet_HC_Providers_L swj_BYKA-QsH-2.pdf Fact Sheet for Healthcare Patients:https://www.[employer]com/sites/default/fi les/product/documents/Fa ct_Sheet_Patients_Lyra_S ARS-CoV-2.pdf Performing Laboratory:[facility] [place] [address] [facility]F [facility]2020-08-13 22:54:00 Test Item Value Reference Range Interpretation Comments SARS-COV2/RT-PCR (test Negative Not Detected, Negative, code = 0616639) See external report for linked test SARS-COV-2 PERFORMING LAB [facility] (test code = 0139915) Negative result for this test determines that [...] 564(g) of the Act.Fact Sheet for Healthcare Providers:https://www.[employer]/sites/default/files/product/documents/Fact_Arely quirozu_SQ_Lzoxfmvdf_Xqjo_CAGS-HzM-3.pdfFact Sheet for Healthcare Patients:https://www.[employer]/sites/default/files/product/ documents/Vhzh_Sdqon_Dzuuojtp_Algk_CGEW-HbJ-2.pdfPerforming Laboratory:[facility], [place] [address]ERM, CHEST, 2 VIEWS 2020-08-12 16:53:00Reason for exam:->Malfunction [...] Verified Date/Time: 08/12/2020 16:53:49 XR chest 2 [id number] 16:53:00Interface, External Ris In - 08/12/2020 4:56 [...] Meredith Nolen MDReport Verified Date/Time: 08/12/2020 16:53:49 [facility] [id number] 16:35:00 Test Item Value Reference Range Interpretation Comments ABO/RH AUTOMATED (BEAKER) (test AB POSITIVE code = 2260) Ab Scrn (test code = 890-4) NEGATIVE [facility] + Reflex to Culture 2020-08-12 15:52:00 Test Item Value Reference Range Interpretation Comments Color, UA (test code = Yellow 5778-6) Clarity, UA (test code = Clear 5767-9) Specific [place], UA (test 1.027 1.001-1.035 code = 5811-5) pH, UA (test code = 6.0 5.0-8.0 5803-2) Protein, UA (test code = Negative Negative 59972-5) Glucose, UA (test code = Negative Negative 365) Ketones, UA (test code = Negative Negative 2514-8) Bilirubin, UA (test code = Negative Negative 80104-5) Blood, UA (test code = Negative Negative 38244-1) Nitrite, UA (test code = Negative Negative 5802-4) Leukocytes, UA (test code Trace Negative A = 5799-2) Urobilinogen, UA (test 0.2 mg/dL 0.2-1 code = 93901-0) RBC, UA (test code = 0 /HPF 00469-9) WBC, UA (test code = <1 /HPF 5821-4) Squam Epithel, UA (test <1 /HPF code = 61120-5) Specimen Source (test code = 2795) ENE (test code = ENE) Tool Drawing Checker ID - [auto]Tool Drawing Checker ID - tech Lab Interpretation (test Abnormal code = 28834-8) [facility]/ REFLEX URINE [id number] 15:52:00 Test Item Value Reference Range Interpretation [...] = 516) SOURCE(BEAKER) (test code = 2795) Tool Drawing Checker ID - [auto]Tool Drawing Checker ID - [facility] Metabolic [id number] 15:50:00 Test Item Value Reference Range Interpretation Comments Sodium (test code = 143 meq/L 318-664 8117-2) Potassium (test code = 3.8 meq/L 3.5-5.1 2823-3) Chloride (test code = 106 meq/L 98-107 2075-0) CO2 (test code = 30 meq/L 22-29 H 8-9) BUN (test code = 12 mg/dL 7-21 3094-0) Creatinine (test code 1.24 mg/dL 0.57-1.25 = 2160-0) Glucose (test code = 97 mg/dL 70-105 2345-7) Calcium (test code = 9.0 mg/dL 8.4-10.2 70458-2) EGFR (test code = 79 mL/min/1.73 [place] [address]-7) NOT ACCURATE CREATININE CLEARANCE IN PREDICTING GLOMERULAR FILTRATION RATE . ESTIMATED GFR I S NOT APPLICABLE FOR DIALYSIS PATIENTS. ENE (test code = ENE) Tool Drawing Checker ID - BS Lab Interpretation Abnormal (test code = 18518-7) [facility] [id number] 15:50:00 Test Item Value Reference Range Interpretation [...] GFR I S NOT APPLICABLE FOR DIALYSIS PATIJOSÉ MIGUEL WING. Tool Drawing Checker ID - [id number] 15:49:00 Test Item Value Reference Range Interpretation Comments PTT (test code = 19085-0) 33.7 22.5- 36.0 seconds Lab Interpretation (test code = Normal 86048-9) [facility] HospitalAPTT2020-[facility] 15:49:00 Test Item Value Reference Range Interpretation Comments PARTIAL THROMBOPLASTIN TIME 33.7 seconds 22.5-36.0 (BEAKER) (test code = 760) Prothrombin time/[id number] 15:48:00 Test Item Value Reference Range Interpretation [...] valves. Lab Interpretation Normal (test code = 65571-2) [facility] HospitalPROTHROMBIN TIME/[id number] 15:48:00 Test Item Value Reference Range Interpretation [...] heart valves.CBC with platelet count + automated [id number] 15:38:00 Test Item Value Reference Range Interpretation [...] 450 K/CU MM MPV (test code = 99648-8) 11.0 fL 9.4-12.4 nRBC (test code = [...] 2801) Lab Interpretation (test code = Abnormal 80175-5) [facility] W/PLT COUNT & AUTO [id number] 15:38:00 Test Item Value Reference Range Interpretation [...]
--- OUTSIDE RECORDS SUMMARY | 2020-09-07 20:46 | XMS REPORT | Clinical Summary ---
:1980 Author Organization [facility] Address [address] [place] [address] Care Team Providers Name Role Phone Pcp Primary Care Provider Unavailable Pcp Primary Care Provider Unavailable Allergies Active [...] present (Primar y Dx) 08/03/2020 Travel after 09/07/2019 Social History Tobacco Use Types Packs/Day Years [...] Assigned at Date Recorded Not on file COVID-19 Exposure Response Date Recorded In the last month, have you been in contact with No / Unsure 08/17/2020 7:40 AM CDT someone who was confirmed or suspected to have Coronavirus / COVID-19? Last Filed Vital Signs Vital Sign Reading Time Taken Comments Blood Pressure 118/79 08/17/2020 2:20 PM CDT [...] VACCINE (#1) 2020 Implants Implanted Type Area Foil Stamp Operator Device Identifier Shelf Model / Expiration Serial / Date Lot Mri Intellis Sensor [id number] - [id number] IMPLANTS Right: Back M EDTRONIC:NEURO [id number] 07/08/2021 [id number] / Implanted: Qty: 1 on 08/17/2020 by Miguel Madison MD at [facility] MODULATION NME [id number] / Lead Vectris Surescan 1x8 60cm [id number] - [id number] IMPLANTS N/A: Spine MEDTRONIC:NEURO [id number] 06/10/2024 [id number] / Implanted: Qty: 1 on 08/17/2020 by Miguel Madison MD at [facility] Thoracic MODULATION VA2 [id number] / Lead Vectris Surescan 1x8 60cm [id number] - [id number] IMPLANTS N/A: Spine MEDTRONIC:NEURO [id number] 06/10/2024 [id number] / Implanted: Qty: 1 on 08/17/2020 by Miguel Madison MD at [facility] Thoracic MODULATION VA2 [id number] / Procedures Procedure Name Priority Date/Time Associated Diagnosis Comme nts RHYTHM STRIP - 08/19/2020 8:40 SCAN AM CDT FL FLUORO STAT 08/17/2020 9:16 Results for this NON-SPECIFIC UP TO AM CDT procedure are in 1 HOUR the results section. TISSUE EXAM AP Routine 08/17/2020 8:40 Results for this AM CDT procedure are i n the results section. PROCEDURE W/ C-ARM 08/17/2020 7:41 Malfunction of AM CDT spinal cord stimulator, initial encounter (HCC) Special Needs (C-ARM, MEDTRONICS) REVISION/ REPLACEMENT,SPINAL 08/17/2020 7:41 AM CDT M alfunction of spinal NEUROSTIMULATOR [...] 376 ms QTC Calculation(Bazett) 425 ms P Luttrell 53 degrees R Luttrell 43 degrees T Luttrell 37 degrees Normal sinus rhythm Normal ECG [...] in viral disease the results section. after 09/07/2019 Results RHYTHM STRIP - SCAN (08/19/2020 8:40 AM CDT) Narrative Performed At This result has an attachment that is no t available. FL fluoro non-specific up to 1 hour (08/17/2020 9:16 AM CDT) Specimen Narrative Performed At Fluoroscopic unit utilized for a procedure performed i n the OR. No GE RIS interpretation was requested. Refer to the operative report for findings. Refer to PACS for patient radiation dose i nformation. Procedure Note Interface, External Ris In - 08/17/2020 12:03 PM CDT Fluoroscopic unit utilized for a procedu re performed in the OR. No interpretation was requested. Refer to the operative r eport for findings. Refer to PACS for patient radiation dose information. Performing Organization Address City/State/[facility] Phone Number GE RIS Tissue Exam (08/17/2020 8:40 AM CDT) Case Report Surgical Pathology Report Case: [id number] I [facility] Authorizing Provider: Miguel Jackman MD Collected: 08/17/2020 08:40 AM [facility] Ordering Location: [facility] PERIOPERATIVE Received: 08/17/2020 10:07 AM [facility] CENTER SERVICES Pathologist: Eboni Renner MD Specimen: Other, Spinal Cord Stimulator; for ID only DIAGNOSIS A. SPINAL CORD STIMULATOR, REMOVAL: Sure2Sign RecruitingFELIBERTOUserVoiceS Electronically - DRYING OVEN TENDER FOR GROSS IDENTIFICATION ONLY [facility] signed by Jud [facility] Aditya Siddiqi on Signing Pathologist Direct Phone Line: 08/17/2020 at 12:59 PM CPT Code(s) [address] [facility] CLINICAL HISTORY Preop diagnosis: JUICE LEON Malfunction of spinal [facility] cord stimulator, MEDICAL CENTER initial encounter. SPECIMEN SOURCE Other [facility] GROSS DESCRIPTION Received fresh labeled with the patient's name, accession number and "spinal cord stimulator" is a 5.2 x 5.2 x 0.8 cm metallic duran-piece of hardware, which is consistent with with a neural stimulator, JUICE LEON and a 8.0 x 4.5 x 0.4 cm agg regate of metallic duran tubing. The following inscription is identified: [facility] [employer] [facility] SureScan MRI SN [id number] A gross photograph is taken. No sections are submitted. This case is for gross examination only. PA/pl MICROSCOPIC NA [facility] CRISTINA DESCRIPTION [facility] Specimen Tissue - Other Performing Organization Address City/State/Zipcode Phone Number [place] [phone] [place] [address] CENTER TRANSFUSION SERVICE REPORT - SCAN (08/13/2020 6:04 PM CDT) Narrative Performed At This result has an attachment that is no t available. XR chest 2 views (08/12/2020 3:37 PM CDT) Specimen Narrative Performed At FINAL REPORT [facility] TECHNIQUE: Frontal and lateral views of the [...] Meredith Peña MD Report Verified Date/Time: 08/12/2020 16:53:49 Procedure Note Interface, External Ris In [...] Date/Time: 08/12/2020 1 6:53:49 Performing Organization Address City/[facility] Phone Number GE RIS ECG 12 lead (08/12/2020 3:19 PM CDT) Specimen Narrative Performed At Ventricular Rate 77 BPM GE MUSE Atrial Rate 77 BPM P-R Interval 120 ms QRS Duration 88 ms Q-T Interval 376 ms QTC Calculation(Bazett) 425 ms P Luttrell 53 degrees R Luttrell 43 degrees T Luttrell 37 degrees Normal sinus rhythm Normal ECG No previous ECGs available Confirmed by MD JOLLY YOCHAI ([id number]) on 08/14/2020 4:27:36 PM Procedure Note Interface, External Ris In - 08/14/2020 4:27 PM CDT Ventricular Rate 77 BPM Atrial Rate 77 BPM P-R Interval 120 ms QRS Duration 88 ms Q-T Interval 376 ms QTC Calculation(Bazett) 425 ms P Luttrell 53 degrees R Luttrell 43 degrees T Luttrell 37 degrees Normal sinus rhythm Normal ECG No previous ECGs available Confirmed by MD JOLLY YOCHAI ([id number]) on 08/14/2020 4:27:36 PM Performing Organization Address City/[facility] Cent[facility]ode Phone Number GE MUSE SARS-CoV2/RT-PCR ([facility]) (08/12/2020 3:14 PM CDT) SARS-COV2/RT-PCR Negative Not Detected, [facility] Negative, See [facility] external report CENTER for linked test SARS-COV-2 [facility] PERFORMING [facility] Specimen Other - Nasopharyngeal wall structure (b florentino structure) Narrative Performed At Negative result for this test determines that [facility] SARS-CoV-2 RNA was not present in the [...] the Act. Fact Sheet for Healthcare Providers: https://www.[facility].com/sites/default/files/pro duct/documents/Fact_Sheet_HC_Providers_Lyra_SA RS-CoV-2.pdf Fact Sheet for Healthcare Patients: https://www.[facility].com/sites/default/files/pro duct/documents/Fact_Sheet_Patients_Lyra_SARS-C oV-2.pdf Performing Laboratory: [address] [place] [address] Performing Organization Address City/State/Zipcode Phone Number [address] [address] [place] Urinalysis w/Microscopic + Reflex to Culture (08/12/2020 3:14 PM CDT) Pathologist Sig nature Color, UA Yellow [facility] Clarity, UA Clear [facility] Specific Ferrum, 1.027 1.001 - 1.035 [facility] pH, UA 6.0 5.0 - 8.0 [facility] Protein, UA Negative Negative [facility] Glucose, UA Negative Negative [facility] Ketones, UA Negative Negative [facility] Bilirubin, UA Negative Negative [facility] Blood, UA Negative Negative [facility] Nitrite, UA Negative Negative [facility] Leukocytes, UA Trace (A) Negative [facility] Urobilinogen, UA 0.2 0.2 - 1.0 mg/dL [facility] RBC, UA 0 /HPF [facility] WBC, UA <1 /HPF [facility] Squam Epithel, UA <1 /HPF [facility] Specimen Source [facility] Specimen Urine Narrative Performed At Pot Press Operator ID - [auto] [facility] Pot Press Operator ID - tech Performing Organization Address [facility]/Zipcode Phone Number [address] [address] CENTER Type and screen, automated (08/12/2020 3:14 PM CDT) Pathologist Sig nature ABO/RH AUTOMATED AB POSITIVE [facility] ([facility]) [facility] Ab Scrn NEGATIVE [facility] Specimen Blood Performing Organization Address City/[facility]/Zipcode Phone Number [facility] [address] [place] [phone] CBC with platelet count + automated diff (08/12/2020 3:14 PM CDT) Pathologist Sig nature WBC 5.9 3.5 - 10.5 [facility] RBC 5.45 4.63 - 6.08 [facility] M/L [facility] Hemoglobin 15.5 13.7 - 17.5 [facility] GM/DL [facility] Hematocrit 49.7 40.1 - 51.0 % [facility] MCV 91.2 79.0 - 92.2 fL [facility] MCH 28.4 25.7 - 32.2 pg [facility] MCHC 31.2 (L) 32.3 - 36.5 [facility] RDW 13.2 11.6 - 14.4 % [facility] Platelets 232 150 - 450 K/[facility] MPV 11.0 9.4 - 12.4 fL [facility] nRBC 0 0 - 0 /100 WBC [facility] % Neutros 67 % [facility] % Lymphs 27 % [facility] % Monos 6 % [facility] % Eos 1 % [facility] % Baso 0 % [facility] # Neutros 3.90 1.78 - 5.38 [facility] # Lymphs 1.57 1.32 - 3.57 [facility] # Monos 0.33 0.30 - 0.82 [facility] # Eos 0.03 (L) 0.04 - 0.54 [facility] # Baso 0.01 0.01 - 0.08 [facility]/L [facility] Immature 0 0 - 1 % [facility] Granulocytes-Relative [facility] Specimen Blood Performing Organization Address [facility]/Zipcode Phone Number [facility] [address] [place], [place] [phone] [place] aPTT (08/12/2020 3:14 PM CDT) Pathologist Sig nature PTT 33.7 22.5 - 36.0 seconds [facility] Specimen Blood Performing Organization Address City/[facility]/Zipcode Phone Number [phone] [place] [address] [place] Prothrombin time/INR (08/12/2020 3:14 PM CDT) Pathologist Sig nature Protime 13.4 11.9 - 14.2 seconds [facility] INR 1.05 <=5.90 [facility] Specimen Blood Narrative Performed At Effective 04/22/2019: PT Reference Range [facility] Change New: 11.9-14.2 Previous: 11.7-14.7 RECOMMENDED COUMADIN/WARFARIN INR THERAPY RANGES STANDARD DOSE: 2.0-3.0 Includes: PROPHYLAXIS for venous thrombosis, systemic embolization; TREATMENT for venous thrombosis and/or pulmonary embolus. HIGH RISK: Target INR is 2.5-3.5 for patients wiht mechanical heart valves. Performing Organization Address [facility] Centercode Phone Number [address] [address] [place] Basic Metabolic Panel (08/12/2020 3:14 PM CDT) Sodium 143 136 - 145 meq/L [facility] Potassium 3.8 3.5 - 5.1 meq/L [facility] Chloride 106 98 - 107 meq/L [facility] CO2 30 (H) 22 - 29 meq/L [facility] BUN 12 7 - 21 mg/dL [facility] Creatinine 1.24 0.57 - 1.25 [facility] mg/dL [facility] Glucose 97 70 - 105 mg/dL [facility] Calcium 9.0 8.4 - 10.2 [facility] mg/dL [facility] EGFR 79Comment: ESTIMATED mL/min/1.73 sq [facility] GFR IS NOT m [facility] CREATININE CLEARANCE IN PREDICTING GLOMERULAR FILTRATION RATE. ESTIMATED GFR IS NOT APPLICABLE FOR DIALYSIS PATIENTS. Specimen Blood Narrative Performed At Pot Press Operator ID - BS [facility] ICAL CENTER Performing Organization Address City/State/Zipcode Phone Number [facility] [address] [place] [address] CENTER after 09/07/2019 Insurance Payer Benefit Plan / Subscriber ID Effective Dates Phone Addre ss Type Group CDC REVIEW CDC REVIEW [id number] 2020-[place] [address] [place] [address] MEDICAID MEDICAID OF [id number] 2020-Present Aditya joaquin [place] Advance Directives For more information, please contact: [phone] Code Status Date Activated Date Inactivated Comments Full Code 08/17/2020 7:15 AM 08/17/2020 8:26 PM This code status was determined by: Patient
--- NOTE | 2020-09-07 21:48 | ER ---
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 Just had a back surgery for a spinal stimulator on the 17 of August. C/O of L side low back pain. Coronavirus screen: Client denies travel out of the [place] in the last 14 days. At this time, the client does not indicate any symptoms associated with coronavirus-19. Ebola Screen: Patient negative for fever greater than or equal to 101.5 degrees Fahrenheit, and additional compatible Ebola Virus Disease symptoms Patient denies exposure to infectious person. Patient denies travel to an Ebola-affected area in the 21 days before illness onset. No symptoms or risks identified at this time. Initial Sepsis Screen: Does the patient meet any 2 criteria? No. Patient's initial sepsis screen is negative. Does the patient have a suspected source of infection? No. Patient's initial sepsis screen is negative. Risk Assessment: Do you want to hurt yourself or someone else? Patient reports no desire to harm self or others. Onset of symptoms was September 07, 2020. 21:08 Method Of Arrival: Ambulatory ca1 21:08 Acuity: SHANIQUE 4 ca1 Historical: - Allergies: 21:11 Claritin; ca1 - PMHx: 21:11 Anxiety; chroinc back pain; chronic back pain; Diabetes - NIDDM; Migraines; nerve pain; ca1 - PSHx: 21:11 Spinal cord stimulator; ca1 - Immunization history:: Adult Immunizations up to date. - Social history:: Smoking status: Reported history of juuling and/or vaping. Vital Signs: 21:08 BP 130 / 92; Pulse 97; Resp 15 S; Temp 97.2; Pulse Ox 100% on R/A; Weight 88.45 kg (R); ca1 Height 6 ft. 0 in. (182.88 cm) (R); Pain 9/10; 21:08 Body Mass Index 26.45 (88.45 kg, 182.88 cm) ca1 ED Course: 20:46 Patient arrived in ED. cf2 21:11 Triage completed. ca1 21:11 Arm band placed on right wrist. ca1 21:47 None, None is Attending Physician. sg Administered Medications: No medications were administered Outcome: :46 Eloped from waiting room, post triage evaluation and consult. wait time Time discovered sg patient gone: September 07, 2020 at 21:46 21:46 Condition: stable 21:47 Patient left the ED. sg Signatures: Chong Beaver RN RN sg Yoli Waite RN RN [facility] [place] cf2
[2020-09-07 21:52] VITALS: BP 130/92; TEMP 97.2; O2SAT 100
== END 2020-09-07 21:47 | disposition left against medical advice (07) ==
LOC: ER 20:43
DX: Z53.21 Procedure and treatment not carried out due to patient leaving prior to being seen by health care provider (principal)
CPT/HCPCS: 99281

== ENCOUNTER 2020-09-11 21:31 | Emergency (ER) | payer OTHER ==
--- OUTSIDE RECORDS SUMMARY | 2020-09-11 21:34 | XMS REPORT | Clinical Summary ---
:1980 Author Organization [facility] Address [address] [place] [address] Care Team Providers Name Role Phone Pcp [...] cord stimulator, subsequent encounter (Primary Dx); MD Miugel Pre-op testing 08/17/2020 Travel 08/12/2020 Hospital Encounter [...] present (Primar y Dx) 08/03/2020 Travel after 09/11/2019 Social History Tobacco Use Types Packs/Day Years [...] VACCINE (#1) 2020 Implants Implanted Type Area Post Splitter Device Identifier Shelf Model / Expiration Serial / Date Lot Mri Intellis Sensor [id number] - [id number] IMPLANTS Right: Back M EDTRONIC:NEURO [id number] 07/08/2021 [id number] / Implanted: Qty: 1 on 08/17/2020 by Miguel Madison MD at [facility] MODULATION NME [id number] / Lead Vectris Surescan 1x8 60cm [id number] - [id number] IMPLANTS N/A: Spine MEDTRONIC:NEURO [id number] 06/10/2024 [id number] / Implanted: Qty: 1 on 08/17/2020 by Miguel Madison MD at [facility] Thoracic MODULATION VA2 [id number] / Lead Vectris Surescan 1x8 60cm [id number] - [id number] IMPLANTS N/A: Spine MEDTRONIC:NEURO [id number] 06/10/2024 [id number] / Implanted: Qty: 1 on 08/17/2020 by Miguel Madison MD at [facility] Thoracic MODULATION VA2 [id number] / Procedures Procedure Name Priority Date/Time Associated [...] 376 ms QTC Calculation(Bazett) 425 ms P Thornton 53 degrees R Thornton 43 degrees T Thornton 37 degrees Normal sinus rhythm Normal ECG [...] in viral disease the results section. after 09/11/2019 Results RHYTHM STRIP - SCAN (08/19/2020 8:40 [...] patient radiation dose information. Performing Organization Address City/State/[facility] Phone Number GE RIS Tissue Exam (08/17/2020 8:40 AM CDT) Case Report Surgical Pathology Report Case: [id number] I [facility]FELIBERTOBaudilio Authorizing Provider: Miguel Jackman MD Collected: 08/17/2020 08:40 AM [facility] Ordering Location: [facility] PERIOPERATIVE Received: 08/17/2020 10:07 AM [facility] CENTER SERVICES Pathologist: Eboni Renner MD Specimen: Other, Spinal Cord Stimulator; for ID only DIAGNOSIS A. SPINAL CORD STIMULATOR, REMOVAL: Style for HireFELIBERTOMonsciergeS Electronically - SHIRT IRONER FOR GROSS IDENTIFICATION ONLY [facility] signed by Jud [facility] Aditya Siddiqi on Signing Pathologist Direct Phone Line: 08/17/2020 at 12:59 PM CPT Code(s) [address] [facility] CLINICAL HISTORY Preop diagnosis: JUICE LEON Malfunction of spinal [facility] cord stimulator, MEDICAL CENTER initial encounter. SPECIMEN SOURCE Other [facility] GROSS DESCRIPTION Received fresh labeled with the patient's name, accession number and "spinal cord stimulator" is a 5.2 x 5.2 x 0.8 cm metallic duran-piece of hardware, which is consistent with with a neural stimulator, JUICE LEON and a 8.0 x 4.5 x 0.4 cm agg regate of metallic duran tubing. The following inscription is identified: [facility] Medtronic Restore Center SureScan MRI SN [id number] A gross photograph is taken. No sections are submitted. This case is for gross examination only. PA/pl MICROSCOPIC NA [facility] CRISTINA DESCRIPTION [facility] Specimen Tissue - Other Performing Organization Address City/State/Zipcode Phone Number [place] [phone] [place] [address] CENTER TRANSFUSION SERVICE REPORT - SCAN (08/13/2020 6:04 PM CDT) Narrative Performed At This result has an attachment that is no t available. XR chest 2 views (08/12/2020 3:37 PM CDT) Specimen Narrative Performed At FINAL REPORT [facility] TECHNIQUE: Frontal and lateral views of [...] Date/Time: 08/12/2020 1 6:53:49 Performing Organization Address City/[facility] [place] Phone Number GE RIS ECG 12 lead (08/12/2020 3:19 PM CDT) Specimen Narrative Performed At Ventricular Rate 77 BPM GE MUSE Atrial Rate 77 BPM P-R Interval 120 ms QRS Duration 88 ms Q-T Interval 376 ms QTC Calculation(Bazett) 425 ms P Thornton 53 degrees R Thornton 43 degrees T Thornton 37 degrees Normal sinus rhythm Normal ECG No previous ECGs available Confirmed by MD JOLLY YOCHAI ([id number]) on 08/14/2020 4:27:36 PM Procedure Note Interface, External Ris In - 08/14/2020 4:27 PM CDT Ventricular Rate 77 BPM Atrial Rate 77 BPM P-R Interval 120 ms QRS Duration 88 ms Q-T Interval 376 ms QTC Calculation(Bazett) 425 ms P Thornton 53 degrees R Thornton 43 degrees T Thornton 37 degrees Normal sinus rhythm Normal ECG No previous ECGs available Confirmed by MD JOLLY YOCHAI ([id number]) on 08/14/2020 4:27:36 PM Performing Organization Address City/[facility] Cent[facility]ode Phone Number GE MUSE SARS-CoV2/RT-PCR ([facility]) (08/12/2020 3:14 PM CDT) SARS-COV2/RT-PCR Negative Not Detected, [facility] Negative, See [facility] external report CENTER for linked test SARS-COV-2 [facility] PERFORMING [facility] Specimen Other - Nasopharyngeal wall structure (b florentino structure) Narrative Performed At Negative result for this test determines that [facility] SARS-CoV-2 RNA was not present in [...] the Act. Fact Sheet for Healthcare Providers: https://www.[employer].com/sites/default/files/pro duct/documents/Fact_Sheet_HC_Providers_Lyra_SA RS-CoV-2.pdf Fact Sheet for Healthcare Patients: https://www.[employer].com/sites/default/files/pro duct/documents/Fact_Sheet_Patients_Lyra_SARS-C oV-2.pdf Performing Laboratory: [address] [place] [address] Performing Organization Address City/State/Zipcode Phone Number [address] [address] [place] Urinalysis w/Microscopic + Reflex to Culture (08/12/2020 3:14 PM CDT) Pathologist Sig nature Color, UA Yellow [facility] Clarity, UA Clear [facility] Specific [place], 1.027 1.001 - 1.035 [facility] pH, UA 6.0 5.0 - 8.0 [facility] Protein, UA Negative Negative [facility] Glucose, UA Negative Negative [facility] Ketones, UA Negative Negative [facility] Bilirubin, UA Negative Negative [facility] Blood, UA Negative Negative [facility] Nitrite, UA Negative Negative [facility] Leukocytes, UA Trace (A) Negative [facility] Urobilinogen, UA 0.2 0.2 - 1.0 mg/dL [facility] RBC, UA 0 /HPF [facility] WBC, UA <1 /HPF [facility] Squam Epithel, UA <1 /HPF [facility] Specimen Source [facility] Specimen Urine Narrative Performed At Shop Foreman ID - [auto] [facility] Shop Foreman ID - tech Performing Organization Address [facility]/Zipcode Phone Number [address] [address] CENTER Type and screen, automated (08/12/2020 3:14 PM CDT) Pathologist Sig nature ABO/RH AUTOMATED AB POSITIVE [facility] (BEAKER) [facility] Ab Scrn NEGATIVE [facility] Specimen Blood Performing Organization Address City/[facility]/Zipcode Phone Number [facility] [address] [place] [phone] CBC with platelet count + automated diff (08/12/2020 3:14 PM CDT) Pathologist Sig nature WBC 5.9 3.5 - 10.5 [facility] RBC 5.45 4.63 - 6.08 [facility] M/L [facility] Hemoglobin 15.5 13.7 - 17.5 [facility] GM/DL [facility] Hematocrit 49.7 40.1 - 51.0 % [facility] MCV 91.2 79.0 - 92.2 fL [facility] MCH 28.4 25.7 - 32.2 pg [facility] MCHC 31.2 (L) 32.3 - 36.5 [facility] RDW 13.2 11.6 - 14.4 % [facility] Platelets 232 150 - 450 K/CU [facility] MPV 11.0 9.4 - 12.4 fL [facility] nRBC 0 0 - 0 /100 WBC [facility] % Neutros 67 % [facility] % Lymphs 27 % [facility] % Monos 6 % [facility] % Eos 1 % [facility] % Baso 0 % [facility] # Neutros 3.90 1.78 - 5.38 [facility] # Lymphs 1.57 1.32 - 3.57 [facility] # Monos 0.33 0.30 - 0.82 [facility] # Eos 0.03 (L) 0.04 - 0.54 [facility] # Baso 0.01 0.01 - 0.08 [facility] Immature 0 0 - 1 % [facility] Granulocytes-Relative [facility] Specimen Blood Performing Organization Address [facility]/Zipcode Phone Number [facility] [address] [place], [place] [phone] [place] aPTT (08/12/2020 3:14 PM CDT) Pathologist Sig nature PTT 33.7 22.5 - 36.0 seconds [facility] Specimen Blood Performing Organization Address City/[facility]/Zipcode Phone Number [place] [phone] [place] [address] [place] Prothrombin time/INR (08/12/2020 3:14 PM CDT) Pathologist Sig nature Protime 13.4 11.9 - 14.2 seconds [facility] INR 1.05 <=5.90 [facility] Specimen Blood Narrative Performed At Effective 04/22/2019: PT Reference Range [facility] Change New: 11.9-14.2 Previous: 11.7-14.7 RECOMMENDED COUMADIN/WARFARIN INR THERAPY RANGES STANDARD DOSE: 2.0-3.0 Includes: PROPHYLAXIS for venous thrombosis, systemic embolization; TREATMENT for venous thrombosis and/or pulmonary embolus. HIGH RISK: Target INR is 2.5-3.5 for patients wiht mechanical heart valves. Performing Organization Address [facility] [facility] Cent[facility]ode Phone Number [address] [address] [place] Basic Metabolic Panel (08/12/2020 3:14 PM CDT) Sodium 143 136 - 145 meq/L [facility] Potassium 3.8 3.5 - 5.1 meq/L [facility] Chloride 106 98 - 107 meq/L [facility] CO2 30 (H) 22 - 29 meq/L [facility] BUN 12 7 - 21 mg/dL [facility] Creatinine 1.24 0.57 - 1.25 [facility] mg/dL [facility] Glucose 97 70 - 105 mg/dL [facility] Calcium 9.0 8.4 - 10.2 [facility] mg/dL [facility] EGFR 79Comment: ESTIMATED mL/min/1.73 sq [facility] GFR IS NOT m [facility] ACCURATE CENTER CREATININE CLEARANCE IN PREDICTING GLOMERULAR FILTRATION RATE. ESTIMATED GFR IS NOT APPLICABLE FOR DIALYSIS PATIENTS. Specimen Blood Narrative Performed At Shop Foreman ID - BS [facility] Performing Organization Address City/State/Zipcode Phone Number [facility] [address] [place] [address] CENTER after 09/11/2019 Insurance Payer Benefit Plan / Subscriber ID Effective Dates Phone Addre ss Type Group CDC REVIEW CDC REVIEW [id number] 2020-[place] [address] [place] [address] MEDICAID MEDICAID OF [id number] 2020-Present Aditya joaquin [place] Advance Directives For more information, please contact: [phone] Code Status Date Activated Date Inactivated Comments Full Code 08/17/2020 7:15 AM 08/17/2020 8:26 PM This code status was determined by: Patient
--- OUTSIDE RECORDS SUMMARY | 2020-09-11 21:35 | XMS REPORT | Continuity of Care Document ---
:1980 Author Organization [facility] t Address [address] [place] [address] Care Team Providers Name Role Phone Pcp Primary Care Physician Unavailable Heron DEMPSEY Attending Clinician Niko Hui MD Attending Clinician HERON Attending Clinician Unavailable Pcp Attending Clinician Unavailable Ramona DEMPSEY Attending Clinician William BONDS Attending Clinician Baudilio Fiore MD Attending Clinician HERON Admitting Clinician Unavailable Payers Payer Name Policy Type Policy Effective Date Expiration Date Sour ce Number [facility] RE[facility] [id number] 2020 JUICE Luque [id number] 00:00:00 [place] [address] MEDICAIDMEDICAID OF [id number] 2020 JUICE Yu [id number] 2020 00:00:00 - Medical -PresentMedicaid Center Problems Condition Condition Condition Status Onset Resolution Last Treating Co mments Source Name Details Category Date Date Treatment Clinician Date Malfunctio Malfunctio Disease Active C HI [facility] of 08-17 [facility] - spinal spinal 00:00: Medical cord cord [...] Stop Date Quantity Comments Source History SDOH [facility] - Alcohol Std Drinks [facility] B[facility] Sex Assigned At [facility] Exposure to Not sure [facility] - SARS-CoV-2 (event) [facility] Tobacco use and 2020-08-17 2020-08-17 Current user [facility] St Yu - exposure 00:00:00 00:00:00 [facility] Alcohol intake 2020-08-17 2020-08-17 [facility]00 non-drinker of Medical Ce nter alcohol (finding) History SDOH 2020-08-03 2020-08-03 1 [facility] vincent - Alcohol Frequency 00:00:00 00:00:00 [facility] Smoking Status Start Date Stop Date Source Never smoker [facility] Medications Ordered [...] Source Systolic blood 2020-08-17 14:20:00 118 mm[Hg] [facility] Diastolic blood 2020-08-17 14:20:00 79 mm[Hg] [facility] S t [facility] Heart rate 2020-08-17 14:20:00 74 /min [facility] Body temperature 2020-08-17 14:20:00 36.39 Gabriela [facility] Respiratory rate 2020-08-17 14:20:00 18 /min [facility] Oxygen saturation in 2020-08-17 14:20:00 99 /min [facility] - Arterial blood by Medical Ce nter Pulse oximetry Body height 2020-08-17 06:00:00 182.9 cm [facility] Body weight 2020-08-17 06:00:00 85.1 kg [facility] BMI 2020-08-17 06:00:00 25.44 kg/m2 [facility] Procedures Procedure Date / Time Performing Clinician Source Performed RHYTHM STRIP - SCAN 2020-08-19 08:40:25 Provider, Default [facility] [place] FLUORO NON-SPECIFIC UP 2020-08-17 09:16:00 Cornell Calderon [facility] - TO 1 HOUR [facility] TISSUE EXAM 2020-08-17 08:40:00 Heron, [facility] REVISION/ 2020-08-17 07:41:00 Miguel Calderon [facility] - REPLACEMENT,SPINAL Medical Cente r NEUROSTIMULATOR LEAD(S) PROCEDURE W/ C-ARM 2020-08-17 07:41:00 Heron Miguel [facility] TRANSFUSION SERVICE REPORT 2020-08-13 18:04:04 Provider, Default [facility] XR CHEST 2 VIEWS 2020-08-12 15:37:00 Heron [facility] ECG 12-LEAD 2020-08-12 15:19:21 Unknown, Hl7 Doctor [facility] SARS-COV2/RT-PCR ([facility] & 2020-08-12 15:14:00 Heron Miguel [facility] - REF LABS) [facility] BASIC METABOLIC PANEL (7) 2020-08-12 15:14:00 Heron, [facility] grady [facility] URINALYSIS W/ REFLEX URINE 2020-08-12 15:14:00 Odilon Calderon [facility] APTT 2020-08-12 15:14:00 [facility] PROTHROMBIN TIME/INR 2020-08-12 15:14:00 Heron [facility] TYPE AND SCREEN, AUTOMATED 2020-08-12 15:14:00 Odilon Calderon in [facility] CBC W/PLT COUNT & AUTO 2020-08-12 15:14:[address] [facility] Plan of Care Planned Activity Planned Date Details Comments Source Future Scheduled 2020-07-26 INFLUENZA VACCINE [facility] Test 00:00:00 (#1) [code = [facility] INFLUENZA VACCINE (#1)] Future Scheduled 2017 Lipid panel [facility] Test 00:00:00 (procedure) [code = [facility] 02725272] Encounters Start End Encounter Admission Attending Care Care Encounter Source Date/Time Date/Time Type Type Clinicians Facility Department ID 2020-02-19 2020-02-19 Emergency [place] [id number] 20:56:33 21:37:00 Fabien Gómez [id number] [place] [id number] [place] [id number] 2020-02-13 2020-02-13 Emergency [facility] [id number] 05:38:10 06:52:00 Jayden Gómez [id number] [place] [id number] [place] [id number] Results Test Description Test Time Test Comments Results Result Comments Source Tissue Exam 2020-08-17 13:00:00 Test Item Value Reference Range Interpretation Comme nts Case Report (test code = 104) Surgical Pathology Report Case: [id number] Authorizing Provider: Miguel Calderon MD Collected: 08/17/2020 08:40 AM Ordering Location: [facility] PERI[facility]IVE Received: 08/17/2020 10:07 AM SERVICES Pathologist: Eboni Renner MD Specimen: Other, Spinal Cord Stimulator; for ID only DIAGNOSIS (test code = 3220) s7aiyNYnLBYfb0umSBVnaDBgTmVgAnYtOjWvQw pc jTTtRUpqdbRzFQows9DuZ5LjOtVnEEpwloTeTVJl QkukoyjuSEZkREG1jcArAXOyTGfzYFZuQOrgNz6x eAVegWweGvLxOSZld6mxlgNSulehtBl0u2cuDUBr KtD3sEVhGTvaW9tdsoCjdQObCEQuNXd0pP30MGPp bF2hcPAjRDdginQaIBzwslZgvbOmBbt0QWRyS6xt ZDDxPYOtV3BdWK5sOYBpDfh1CXG0QFM1vUyjo2H0 wXIwxZZswReaEeHfUtOvIDASr6YrZRt2pNiaA3Ot NSYlZtH9dHYlIIUfRJiyENSjITJorlH8mS87LPfm lzT2bREnb7Gsg78nm783yW9dxMYhTFR9XVHeZYQr rRGxNTYwYUP3HLKwkMXkN6w4QnXzgGEmW5S6MbLz kBWpB4U4NiFjrCYoD0S1VbUjoSZvKDIkbIDnFt6w vOYhmHVuxp2rse63FZV1v0NxbUgpSFQ4ZZI0EbMu Ar4nyINzVSWtNN9gEyChkKGnJKYnel16sDehKTqe brMnnV9iYfYsCQNrhVGjZVMqJZ3eoDZhNXDphI7o nuanKSVgAdGuptahSBApdApdjxDcKo9urAccTFY4 TOdvZ2nswS7qOvB6YGojC5ygvW2cSGl1YUyyzPK3 FPTqnA3qWV4npsmwf6vbZrTcKU0ebmzsw1mqIlXb ME9mtnh9c8grXmLhKJ9waksou0cvRmQbYWmjGQHk ciciLKMpu5PrgsmdJQCkj0FgS7DevKjsT52dtEak K70xSYNuvCcfkY2yeZbzdC6jGfUpYxNtRTvzhIpx lXHzgyuiSVrnwiUvVWOnFEitBPNeLNZuLzKhQJ9e R7WZKqKIHFQVSaQlL9KBNGPKXYWRPouvMmOMX8ST BZveyCIiYKTqPWSzIQSNOISYXKTFTEGSC1LsOe5Y ZMlGH3KRDHuDNP0QBJPOA3IWKP9PPH1YKZpoXHCn sppeYFD9l0bkxHInJMSxhZYxYCYwPWpjyyXjFNGf DrktqyhcXFKkDTU6teYeWUVbFLzoYFFqMInfYc4d nNWajIogSnAmTZJzb1uvjvCJwcvwcAv2n4hrGZZw OlB7pAUyDKhrH9amgmQqaPOwKTVoTRe0hT20ARZr lA9jtYZpUQzuzaCjEdC1WXotUMLmDjI6ZXJwyZWm RHZwZ0ceGLLkKXcdSPQfXYaxwZEtBDI5sFlqn0G1 iLEomMYxxYujYpLnByBlZxWUh7RhTVj6dUiqF9Lu COVvNkC8tAKvLAAcSIvsYPGtIYZuzyR0zA02VEus nqS0tJHpc8Ceq79iz982eV5anKWqWGS6DFLuHREi sFRpIPVnHUD4QPKxkVVjB3llUAUuCP0cgounCGjq HIrpVMTtnKX7CGCsfRZvZ5TwBREiMVraNPYffns4 JwClHu1frJLpwOxeYCpfk1jif7nawWMxWph1MAEq IvYdUmopLZrlw1Ycq0jiQETdqm4nUCS0bELqoEcp k9R1fDLeBTJuaYVfERXmGX5ouYQhQRVqfV2kbsor IBKoLsLniwuqHZRyqNtiujKvAy5cvDxrUHH7KNxq C3bheU3pAhX6GIweU7mjzV2lKIj4RRtyISQprND4 ymN2XSXamRPfR2KzsO2tZCBlVN6zjln3p0jbDZI5 JSbrDYKfGmM0wyO8GGWepXAaUWHwsMnpRYtmg174 CXO4VhSoCDCyw6IjF1MvrOodD18icVmrF52mKHCs kFugrU2kwMqlcQ3sVcDoOlCoGDslqDaoBI3cSWQy C6flzFKpGXWmWUXxM8agEkLwbW9hkWtqBRwsrwTp YVMtOle4FMMhvXXtDJHeUek7STBcYJLxX32vwtnr YCS9jS2tf2kzr1XmMRywRDB2UXEub65eHCpdrxV7 FCycBc3fIBIbOks2TGqeDVH8bA== CPT Code(s) (test code = 3357) e6aqhQZpMFUhzOBxUiMmTADhENOfn8pwZDVm bGFu LmBaTcQnJmZbQaaxdHHkTOQlYdSyw8jvp049uNOo q6erRKRjAoP1uVJkXVOoiQOoX781o7scf0lcyjJo wZH5SNTwBKB7DRukrxGajpM9ZLspeYAnJoQ9URsq ktTcHOpippJzlzGxCfw7ANSaH921IDY8nCrwo3wc QRR3BLAvKAMvCxQcGo3mnBHjV278LMOqGJZOJFBq iYx2OWLsxuYsztRpgQUSc718X077x1gfBJCytbQg oPiYtrmlz0hjA901PMTnnBGnidWuRvUfEBSxvCJu bFQ2FPSyQY4mxksgRmArDJ8cykwgZbRsLH3hlhk2 BlYlOV7ixynhRqSvILggQIVchsbvLYMug6Flhqgh UN8lM0Wkt7S9lB6daFSzZNFqhOUmQoXwPOZnpe8d vGTbANgum1EiIVZ4eyK5oBMmlPKiYFElIF21Wfgg f1DpOctaNYR8WGGjdrPya7Ulr0qdKpQxghUdU3ab E7EsANKuUUQfXTTbOpWadkWgo0Ayc1IfpMAbjDv8 d5rgXLOsWAHkiDcpu8puWYZ1NNMzA5Z9dOWwd7de WKmmAOGrnXL7kwwtBGkoSJOglcE1vxorPAqcODBp dYP4pgnkXPajMPGaSpC5rwbpGLbmYWVsQIR8ASqd z840PIY5RXfuDpdtBNojXTBlybPdwiKxxAafQDIm MOZsHPdjKGBbAMsxNFDiMJNeMzJwqRdhhJzawS9q JyDwRhYqSPwvMK0cWMCnN5egvVAzDLFzSNRrB3sm KoTblL1cjFsdEYxgrdEoVBa0CoGuVITfbq9= CLINICAL HISTORY (test code = 3356) p7puhVYnZEEmuNJgEzQdYVNvUJTou5w cZGVmbGFu QyNbEfHgOdGdNvsvfUOiKBXhWzJou3pku106qDDt e3ozNANlLfJ1oBCmUBQojJNpD213c7vyt0vznaQx jSS6OOEgZCT0GVwyhvTchsQ9MMdmdCPzDtU2BQte esExBSltacExtuNqIwt5WPVuI124EEC1bTjko0ai LXZ9LNFzNSRiLyZsGf0yrMRhG447DSVkWVCTMORh hNg4MCNibkIoyiVdcIYHj860I406h5hjGIWppbGm yLgDkvstf3yfO189JBTpmNPvgqFlCsUlDIPbtHMn oAM6QYHnKZ9qtixsXiEnCU7lvychOhCbYO5efyd0 WsNnIV5jwxkyIxEjANjmQZPnaivpODSkv5Cuieyk ZT8hP8Jsf6M8vG0shUYaPJMazEYhYaFxGWQrvl7d rLEaIVhpa4YqWQW8ylJ6xFNqpXKyYCMaUM67Edbx c5HoZjkfOQG1UVTlvhMpp0Xxf8rzLxOkekRgU1id D3BdMMCoUKRbMYVeRuZofvWkc6Lik6MgeMYwcRw3 r0uzPRIeJSNmuAdww3geUNR5APQaZ4T3tDWur6oa DQudHPKldQK5mitsTDdeOHSgbdR4tbioJKanXKTp oVH1dmdkACoaKUVwQvT2eraoWOoeLJDvNXN7ANxl r115ENJ0GIcoExsyWTahXMMqxsHeulUlaYzxXYEf QJCaNRnpXQAwFPigKLOyVAZqBgEsiUrgfRzfbN5u BlRjEuCnETgzDA4jREAsI6hwwTWyWKQmPKBfK1ar NaZcxN8czHesIEthulVvVZBlMX1kWWZkZUpee4Ey uamsTS9qrPN8fpC2dG5dEH4kUHEscC2uyUHfi9Yi NUD4vG13jZE7e8UtYKhomBIuQXfzWS3ea9ZjnQYi LiBccGFyfQ== SPECIMEN SOURCE (test code = 3377) r9aebVVrKVNppENrIlDdCMZhLVVoc8lt ZGVmbGFu VnDiDiJdYrOxWgxvpZEwBLMkVxIwb6mhu609oOEl v3qmLTMvVwO0rZJpMCUviUHmQ414d4ear6hitjPk pSW6HFXzNPV6GTzdvjRxueJ6CJwtmEXfZfV7OBel txNwDIkjowGdtzZrMsh9TKJyZ774IZD4dIydh3ft OAN3IGHkTMRzYvIwIs3vrGEbQ428EYDeLWWLPPLw qUm7BGXouuKrvvPenKZLc899K818a1foOEMtofFn aYbUvqpry0kaB330MZOwhWOgorMdIuTyTKAbeGGp oNO8EJAnBG7kivroWcMdYG3yafekViNtWP7dxhe2 HtVdGY0jpbhlDyFsWYleVQDmyeeuRQVph5Ybuxea ZE1bU3Glq4O0mE4uxKQoITTpiMXwThSbBITmxf3l eJAuXAjvp5BfHEF9aiI6gXGprAKtDOKcJC60Eqli g3JxVkrlESJ1WZNcncNdw2Qia7nlLrZmhgIcK4pv B1WcDGYaMMNgDWBnEjEamnTlp2Wlo4KebJHbfGe4 d8dzWTLgSSTyqSgzp7izZXW6MUVtU0M8rZZah0bn QInoREFlgFL8bbknWTkhQGRgduL2uzlgOZhiNTMe yQU0zrosULvhUNGbKiC9kmxyTJqgGLInVTM3NAiz k131XTY9UJrwIivrSAceMQVzqyXfyhTyzDviGMCk AXQoAZeeSBBlLWfxIFLoWYSbVpUanRiteIkoaB0h AzPfKxJsNMxyBS4dMKWzC4ageDUoNYIpRDNxO9lf FwFjcH3vmTskBSpjevCnJB47dVRkEFVtwm3= GROSS DESCRIPTION (test code = 3366) l2nwqOFoGEPdsQHeQvFsCCYyMXCst5 lcZGVmbGFu ZiHkTeWpEiTuFsgxsPRtVCIsQjCta2dsj405cXIw z8hyXHNiFxW0hKUyEBDipBKeD462GAEyILodn4vn o8OcPXGnxPKsz7A8FQFBkuxizBa6bEmyV65yr3Z3 FgmqH0ejCKUeECnmVSNoZUvwdKOnXLM4OUXiSAT8 DVneioQbimK2KNrfoHNoHvN3OLe1h6aknKwvNDPx UFZ9w4jzGHdwixYcVP5fcg4qzVn2f5wstjKzLTXz ESVzwNGGMCXlY1ViyRvkIo2hrOh6uEdlWaatWSM8 Rpe1QU9bfh32rln4nBmgGAXxgmwjDqP4JGjaGRZb kxyfKOl3UBpuFYPcgUmlHKitHLGlvpflWEyyDBJb zXfjVPfeRJZeDebqFZkoMQCxENI4IYvpv824UKI6 LDqya7kbv4alcEWqCox7YZFsCgWiGkqiLQnsu5Xg n1kfDLBlai2jUHM9qIQwpExph6K8sOYnDTJrxFCz ouCfDUAiJnE6ZYstPD2qgf25EGYcXHP4wg8dlCHa hOpcuaWizGQhNPrrG6PnEEDzg257DSZhQ2AuLRUa v3V2voKlBsDrUHJaiWU1saW2BMPpNUi9zTYembJ3 svBoeROhR1rclC59KxLjnMUfP6DhcB78QtXikMLa V4GvmN73UfYvzMOzF2LorB49KtQcgQMoJPNmsQHj Jr6ebCClmPMlu9RgbFLhUHfmO07tl801UQUptkIr P2tncQQpieovtTBiihysXLpmwwIdKQVfETFrNUfi DFBtMXWjOhWqfRrclC8xOpQgWsAoPIEAJVXchONy ZCBmcmVzaCBsYWJlbGVkIHdpdGggdGhlIHBhdGll nuEuwuGhHY1qDNOuO2Xbv5Rje95mnoIaMfNoCBOg XVRiw9AsbtJjUFFkclCrf1XwwYMzZUIcpkPubGIp BLQ2BiKepZL7HzDugAQnLvdaY72xxGD1KKqwvOJs Z3NtcC7xhEEgUOLfQzLnTBYpz5DnOQlzq4qzK1zx aMWwS81em6ylnENziOL9tECqDKwfaOjnQFLsGMNm NWrio4MpyLKcTHKedbnkEG3vRKDpIU7hDZuaLH74 XMgxEF98HOFpMSSpG6OyO6H4GVHdMsIxEYBzzBvd UnTntcG2MGS7LhbsDk6aIAyfPRUqkBucg2fuOlNh bnNjcmlwdGlvbiBpcyBpZGVudGlmaWVkOlxwYXJc zSFzKB0bEPHas60oI3ucLMUlOjJjhW8mYZJRSS72 ITLqpWLqDQE0vqRZC0MrVF7LJTjhZPJtF98hKp8G WdPuRcIoNTchSWDorKOuYMDbL7Qve5NbwUnvmU7e mpKsvEKbgnJ2ZWkgbz0sQi8go0MdgHadplIlKZHx GJE5Fi0psVCkWD5mNYnsnjRjKDLbPKksRRXsiyKv zo6dodKdoVIcaW9wdNvbjqGuhht0DwBxORXqwMnd IFxwYXJ9 MICROSCOPIC DESCRIPTION (test code = d0nleWDlOPQyqXRbTsWjVSKmZZPki8 [place] [address]) VuEnZzXwGoEpWybbcEJfJJShDeWdc7vqx164uWGi b9hgFMBvOwP5aLPqJGGfhAMpJ026v3kbt9qcgiSz yTD6DILnSCC9EOaueqTuliG9JNmjuYIqUgF5ZXxf fzMfMCdxhbPamgSdMee8KZQtK449HXB2mWqxs7fj UQI9KAOpQPXwAmFuGj6qpYGtE111MFJeWNIXWWCj jZl5GKYrucDedlNbbYDFa512M836q0cjVYPpxfBj cUhPvcyjj6reV121FSOtpAAuchUoWpDwKFRncTZw jFW1KIBuPR3xjszmBtLaBG4ujwomUmBrIB9ibwc6 DbXjLF9lwascVoJwBWadIVXvyjovVVDyp0Cxhhgm JK4rT9Pfn0C8hL6rkJUcRBXcaLWbNqLhNTLnmb3y aMTgOCpvf8AvITZ1jtI9uTEazZJsWFMtDZ80Jxlt s7AhQtyuWEC3QSKawvVhs0Oqj9nzVrDilgPzR7ye S2RbIBUnEHCiCTCaIpBgouGrv7Eet3HegUGyzYf4 j4fyTDKiORBuyAvrv4zrCNU8UYAfW9S6hXDwh2gj BXqyOBQceKF4blqrLEkqCZXwagS8csjeLVzqZBJe zQU4yapbKKjvMCZjRiI6kskrWEqzADGoDHT2JZfd u887LRM1PRwlYvoeRKjsVXFbwvGzgcEmlCklPBCs DXVwDUfuZNRoDZpcVRKaFOGyVwGpwSrxlAqdnG6q QkYkOaYfWHesWF6bMEHyY5fzaPMgRYFbTTQdM8oo KqYaeC7lnAmyHCvtgbGuLP2DFGJuff5= [id number] 13:00:00Surgical Pathology Report Case: [id number] Authorizing Provider: Miguel Calderon MD Collected: 08/17/2020 08:40 AM Ordering Location: [facility] PERI[facility] Received: 08/17/2020 10:07 AM SERVICES Pathologist: Eboni Renner MD Specimen: Ot her, Spinal Cord Stimulator; for ID only A. SPINAL CORD STIMULATOR, REMOVAL: - MEDICAL DOCTOR NUCLEAR MEDICINE FOR GROSS IDENTIFICATION ONLY Signing Pathologist Direct Phone Line: [phone] signed by Eboni Renner MD on 08/17/2020 at 1:00 [id number] diagnosis: Malfunction of spinal cord stimulator, initial encounter. OtherReceived fresh labeled with the patient's name, accession number and "spinal cord stimulator" is a 5.2 x 5.2 x 0.8 cm metallic duran-piece of hardware, which is consistent with with a neural stimulator, and a 8.0 x 4.5 x 0 .4 cm aggregate of metallic duran tubing. The following inscription is identified:[facility]St[facility] MRISN [id number] gross photograph is taken. No sections are submitted. This case is forgross examination only. PA/pl NAFL, FLUORO, NON-SPECIFIC, UP TO 1 [id number] 09:16:00Reason for exam:- >Spinal Cord Stimulator RevisionFluoroscopic unit utilized for a procedure performed in the OR. No interpretation was requested. Refer to the operative report for findings. Refer to PACS for patient radiation dose information.FL fluoro non-specific up to 1 [id number] 09:16:00Interface, External Ris In - 08/17/2020 12:03 PM CDTFluoroscopic unit utilized for a procedure performed in the OR. No interpretation was requested. Refer to the operative report for findings. Referto PACS for patient radiation dose information.[facility] Medicine[facility] 12 [id number] 16:27:41Interface, External Ris In - 08/14/2020 4:27 PM CDTVentricular Rate 77 BPMAtrial Rate 77 BPMP-R Interval 120 msQRS Duration 88 msQ-T Interval 376 msQTC Calculation(Gagezeangelita) 425 msP Vance 53 degreesR Vance 43 degreesT Vance 37 degreesNormal sinus rhythmNormal ECGNo previous ECGs availableConfirmed by MD RIK, SARAH ([id number]) on 08/14/2020 4:27:36 [facility] Ref [facility]) 2020-08-13 22:54:00 Test Item Value Reference Range Interpretation Comments SARS-COV2/RT-PCR Negative Not Detected, (test code = Negative, See 44249-8) external report for linked test SARS-COV-2 [facility] PERFORMING LAB (test code = 64430-5) ENE (test code = Negative result for [...] of the Act. Fact Sheet for Healthcare Providers:https://www.[employer]stream.TV.[employer]/sites/default/f amy/product/documents/F act_Sheet_HC_Providers_L tsf_UKHM-OrV-9.pdf Fact Sheet for Healthcare Patients:https://www.[employer].com/sites/default/fi les/product/documents/Fa ct_Sheet_Patients_Lyra_S ARS-CoV-2.pdf Performing Laboratory:[facility] [place] [address] [facility] REF [facility]2020-08-13 22:54:00 Test Item Value Reference Range Interpretation Comments SARS-COV2/RT-PCR (test Negative Not Detected, Negative, code = 0833545) See external report for linked test SARS-COV-2 PERFORMING LAB [facility] (test code = 4816902) Negative result for this test determines that [...] 564(g) of the Act.Fact Sheet for Healthcare Providers:https://www.[employer]/sites/default/files/product/documents/Fact_Arely quirozd_BX_Cizhqbxff_Amjc_BOTS-HdO-0.pdfFact Sheet for Healthcare Patients:https://www.[employer]/sites/default/files/product/ documents/Wydn_Hyepm_Yqpdtotj_Cfmi_LQUO-WlB-4.pdfPerforming Laboratory:[facility], [place] [address]RTC, CHEST, 2 VIEWS 2020-08-12 16:53:00Reason for exam:->Malfunction [...] Verified Date/Time: 08/12/2020 16:53:49 XR chest 2 [id number] 16:53:00Interface, External Ris In - 08/12/2020 4:56 [...] Meredith Nolen MDReport Verified Date/Time: 08/12/2020 16:53:[address] [facility], [id number] 16:35:00 Test Item Value Reference Range Interpretation Comments ABO/RH AUTOMATED (BEAKER) (test AB POSITIVE code = 2260) Ab Scrn (test code = 890-4) NEGATIVE [facility] MedicineUrinalysis w/Microscopic + Reflex to Culture 2020-08-12 15:52:00 Test Item Value Reference Range Interpretation Comments Color, UA (test code = Yellow 5778-6) Clarity, UA (test code = Clear 5767-9) Specific Harris, UA (test 1.027 1.001-1.035 code = 5811-5) pH, UA (test code = 6.0 5.0-8.0 5803-2) Protein, UA (test code = Negative Negative 09844-9) Glucose, UA (test code = Negative Negative 365) Ketones, UA (test code = Negative Negative 2514-8) Bilirubin, UA (test code = Negative Negative 16171-6) Blood, UA (test code = Negative Negative 10295-5) Nitrite, UA (test code = Negative Negative 5802-4) Leukocytes, UA (test code Trace Negative A = 5799-2) Urobilinogen, UA (test 0.2 mg/dL 0.2-1 code = 96109-7) RBC, UA (test code = 0 /HPF 21391-7) WBC, UA (test code = <1 /HPF 5821-4) Squam Epithel, UA (test <1 /HPF code = 77948-1) Specimen Source (test code = 2795) ENE (test code = ENE) Activities Officer ID - [auto]Activities Officer ID - tech Lab Interpretation (test Abnormal code = 02411-6) [facility]/ REFLEX URINE [id number] 15:52:00 Test Item Value Reference Range Interpretation [...] = 516) SOURCE(BEAKER) (test code = 2795) Activities Officer ID - [auto]Activities Officer ID - [facility] Metabolic [id number] 15:50:00 Test Item Value Reference Range Interpretation Comments Sodium (test code = 143 meq/L 760-419 3843-2) Potassium (test code = 3.8 meq/L 3.5-5.1 2823-3) Chloride (test code = 106 meq/L 98-107 2075-0) CO2 (test code = 30 meq/L 22-29 H 8-9) BUN (test code = 12 mg/dL 7-21 3094-0) Creatinine (test code 1.24 mg/dL 0.57-1.25 = 2160-0) Glucose (test code = 97 mg/dL 70-105 2345-7) Calcium (test code = 9.0 mg/dL 8.4-10.2 86533-7) EGFR (test code = 79 mL/min/1.73 [place] [address]-2) NOT ACCURATE CREATININE CLEARANCE IN PREDICTING GLOMERULAR FILTRATION RATE . ESTIMATED GFR I S NOT APPLICABLE FOR DIALYSIS PATIENTS. ENE (test code = ENE) Activities Officer ID - BS Lab Interpretation Abnormal (test code = 45576-9) [facility] [id number] 15:50:00 Test Item Value Reference Range Interpretation [...] NOT APPLICABLE FOR DIALYSIS PATIJOSÉ MIGUEL WING. Activities Officer ID - [id number] 15:49:00 Test Item Value Reference Range Interpretation Comments PTT (test code = 16069-0) 33.7 22.5- 36.0 seconds Lab Interpretation (test code = Normal 52169-3) [facility]2020-09-[facility] 15:49:00 Test Item Value Reference Range Interpretation Comments PARTIAL THROMBOPLASTIN TIME 33.7 seconds 22.5-36.0 (BEAKER) (test code = 760) Prothrombin time/[id number] 15:48:00 Test Item Value Reference Range Interpretation [...] valves. Lab Interpretation Normal (test code = 55422-7) [facility] MedicinePROTHROMBIN TIME/[id number] 15:48:00 Test Item Value Reference Range Interpretation [...] heart valves.CBC with platelet count + automated [id number] 15:38:00 Test Item Value Reference Range Interpretation [...] 450 K/CU MM MPV (test code = 20056-2) 11.0 fL 9.4-12.4 nRBC (test code = [...] 2801) Lab Interpretation (test code = Abnormal 76523-7) [facility] W/PLT COUNT & AUTO [id number] 15:38:00 Test Item Value Reference Range Interpretation [...]
[2020-09-11] MEDS ORDERED: KETOROLAC 30 MG/ML INJ ONE (22:29)
[2020-09-11] MEDS ORDERED: MORPHINE 4 MG/ML SYR ONE (22:56)
--- NOTE | 2020-09-11 23:09 | ER ---
Nurse's Notes [facility] Name: Harris Alanis Age: 40 yrs Sex: Male : 1980 Arrival Date: 09/11/2020 Time: 21:35 Bed 4 Private MD: Diagnosis: Contusion of left hip Presentation: 09/11 21:36 Chief complaint: Patient states: "I fell on the 14th and I have been having this pain jd3 that starts in my left hip and goes down my left leg.". Coronavirus screen: At this time, the client does not indicate any symptoms associated with coronavirus-19. Ebola Screen: Patient negative for fever greater than or equal to 101.5 degrees Fahrenheit, and additional compatible Ebola Virus Disease symptoms. Initial Sepsis Screen: Does the patient meet any 2 criteria? No. Patient's initial sepsis screen is negative. Does the patient have a suspected source of infection? No. Patient's initial sepsis screen is negative. Risk Assessment: Do you want to hurt yourself or someone else? Patient reports no desire to harm self or others. Onset of symptoms was September 07, 2020. 21:36 Method Of Arrival: Ambulatory jd3 21:36 Acuity: SHANIQUE 4 jd3 Historical: - Allergies: 21:39 Claritin; jd3 - Home Meds: 21:39 hyoscyamine sulfate 0.125 mg SL subl as needed [Active]; budesonide 3 mg Oral CECX jd3 three times a day [Active]; amitriptyline 25 mg Oral tab 1 tab nightly [Active]; EnteraGam 5 gram Oral pwpk twice a day [Active]; gabapentin 300 mg Oral cap 1 cap twice a day [Active]; hydrocodone-acetaminophen 5-325 mg Oral tab [Active]; Protonix 40 mg Oral TbEC 1 tab once daily [Active]; [place] 5-325 mg Oral tab twice a day [Active]; ondansetron HCl 4 mg Oral tab as needed [Active]; Valium Oral [Active]; venlafaxine Oral [Active]; Ambien CR Oral [Active]; tizanidine 4 mg Oral tab 1 tab twice a day [Active]; colestipol 1 gram Oral tab 2 tabs 2 times per day [Active]; Abilify Oral [Active]; Xanax 1 mg Oral tab 1 tab nightly [Active]; - PMHx: 21:39 chronic back pain; nerve pain; Anxiety; Diabetes - NIDDM; chroinc back pain; Migraines; jd3 - PSHx: 21:39 Spinal cord stimulator; jd3 - Immunization history:: Adult Immunizations up to date. - Social history:: Smoking status: Reported history of juuling and/or vaping. Screenin:10 Abuse screen: Denies threats or abuse. Denies injuries from another. Nutritional rv screening: No deficits noted. Tuberculosis screening: No symptoms or risk factors identified. Fall Risk None identified. Assessment: 22:09 General: Appears uncomfortable, Behavior is calm, cooperative. Pain: Complains of pain rv in left hip Pain radiates to left leg. Neuro: Level of Consciousness is awake, alert, obeys commands, Oriented to person, place, time, situation. Cardiovascular: Patient's skin is warm and dry. Respiratory: Airway is patent. Derm: Skin is intact. Musculoskeletal: Range of motion: intact in all extremities, Swelling absent. 22:46 Reassessment: PAIN IS UNCHANGED AFTER TORADOL DOSE. REFERRED TO DR HARRIS, MORPHINE rv GIVEN IM ORDERED. Vital Signs: 21:39 BP 126 / 88; Pulse 97; Resp 17 S; Temp 97.3(O); Pulse Ox 97% on R/A; Weight 88.45 kg jd3 (R); Height 6 ft. 0 in. (182.88 cm) (R); Pain 8/10; 23:16 BP 121 / 76; Pulse 89; Resp 17; Pulse Ox 100% on R/A; rv 21:39 Body Mass Index 26.45 (88.45 kg, 182.88 cm) jd3 ED Course: 21:35 Patient arrived in ED. as 21:37 Triage completed. jd3 21:41 Arm band placed on. jd3 22:04 Linus Harris MD is Attending Physician. tw4 22:09 Satish Huynh, FLAVIA is Primary Nurse. rv 22:10 Patient has correct armband on for positive identification. Pulse ox on. NIBP on. rv 22:43 Hip Left 2 View XRAY In Process Unspecified. EDMS 23:16 No provider procedures requiring assistance completed. Patient did not have IV access rv during this emergency room visit. Administered Medications: 22:19 Drug: TORadol 60 mg Route: IM; Site: right deltoid; ea 22:41 Follow up: Response: No adverse reaction; Pain is unchanged, physician notified rv 22:45 CANCELLED (Duplicate Order): morphine 4 mg IVP once; RASS on ADMIN: Combtv4, Very rv Agttd3, Agttd2, Rstlss1, AlertClm0, Drwsy-1, Lt Sdtn-2, Mod Sdtn-3, Dp Sdtn-4, UnArsble-5 22:46 Drug: morphine 4 mg {Note: RASS 0.} Route: IM; Site: left deltoid; rv 23:15 Follow up: Response: No adverse reaction; Marked relief of symptoms; Pain is decreased; rv RASS: Alert and Calm (0) 23:16 Drug: predniSONE 60 mg Route: PO; rv 23:16 Follow up: Response: Medication administered at discharge. rv Outcome: 23:08 Discharge ordered by MD. norton 23:16 Discharged to home ambulatory. rv 23:16 Condition: improved 23:16 Discharge instructions given to patient, Instructed on discharge instructions, follow up and referral plans. medication usage, Demonstrated understanding of instructions, follow-up care, medications, Prescriptions given X 1. 23:17 Patient left the ED. rv Signatures: Dispatcher [employer] Sharon Schumacher Elena, RN RN Ellis Lange RN RN Linus Pisano MD MD tw4 Vicente, Ronaldo, RN RN rv
[2020-09-11] MEDS ORDERED: predniSONE 20 MG TAB ONE (23:24)
[2020-09-11 23:32] VITALS: TEMP 97.3
[2020-09-11 23:33] VITALS: BP 121/76; O2SAT 100
--- NOTE | 2020-09-12 07:12 | RAD REPORT ---
EXAM DESCRIPTION: RAD - Hip Left 2 View - 09/11/2020 10:43 pm CLINICAL HISTORY: Left hip pain FINDINGS: No fracture or dislocation is seen. If the patient continues to have symptoms to suggest an occult fracture CT would be recommended
--- NOTE | 2020-09-12 23:17 | EDPHYS ---
Physician Documentation [facility] Name: Harris Alanis Age: 40 yrs Sex: Male : 1980 Arrival Date: 09/11/2020 Time: 21:35 Bed 4 Private MD: ED Physician Linus Franks HPI: 09/12 06:56 This 40 yrs old Black Male presents to ER via Ambulatory with complaints of Hip Pain, tw4 Leg Pain. 06:56 The patient or guardian reports pain. tw4 06:57 that occurred at home. The complaints affect the left hip. Onset: The symptoms/episode tw4 began/occurred 5 day(s) ago. Modifying factors: The symptoms are alleviated by remaining still, the symptoms are aggravated by any movement. Associated signs and symptoms: Loss of consciousness: the patient experienced no loss of consciousness. The patient has not experienced similar symptoms in the past. Historical: - Allergies: 09/11 21:39 Claritin; jd3 - Home Meds: 21:39 hyoscyamine sulfate 0.125 mg SL subl as needed [Active]; budesonide 3 mg Oral CECX jd3 three times a day [Active]; amitriptyline 25 mg Oral tab 1 tab nightly [Active]; EnteraGam 5 gram Oral pwpk twice a day [Active]; gabapentin 300 mg Oral cap 1 cap twice a day [Active]; hydrocodone-acetaminophen 5-325 mg Oral tab [Active]; Protonix 40 mg Oral TbEC 1 tab once daily [Active]; [place] 5-325 mg Oral tab twice a day [Active]; ondansetron HCl 4 mg Oral tab as needed [Active]; Valium Oral [Active]; venlafaxine Oral [Active]; Ambien CR Oral [Active]; tizanidine 4 mg Oral tab 1 tab twice a day [Active]; colestipol 1 gram Oral tab 2 tabs 2 times per day [Active]; Abilify Oral [Active]; Xanax 1 mg Oral tab 1 tab nightly [Active]; - PMHx: 21:39 chronic back pain; nerve pain; Anxiety; Diabetes - NIDDM; chroinc back pain; Migraines; jd3 - PSHx: 21:39 Spinal cord stimulator; jd3 - Immunization history:: Adult Immunizations up to date. - Social history:: Smoking status: Reported history of juuling and/or vaping. ROS: 09/12 06:57 Constitutional: Negative for fever, chills, and weight loss, Eyes: Negative for injury, tw4 pain, redness, and discharge, Cardiovascular: Negative for chest pain, palpitations, and edema, Respiratory: Negative for shortness of breath, cough, wheezing, and pleuritic chest pain, Abdomen/GI: Negative for abdominal pain, nausea, vomiting, diarrhea, and constipation. MS/extremity: Positive for injury or acute deformity, decreased range of motion, pain, tenderness. 06:57 Skin: Negative for injury, rash, and discoloration, Neuro: Negative for headache, tw4 weakness, numbness, tingling, and seizure, Psych: Negative for depression, anxiety, suicide ideation, homicidal ideation, and hallucinations. Exam: 06:57 Constitutional: This is a well developed, well nourished patient who is awake, alert, tw4 and in no acute distress. Head/Face: Normocephalic, atraumatic. 06:57 Chest/axilla: Normal chest wall appearance and motion. Nontender with no deformity. tw4 No lesions are appreciated. Cardiovascular: Regular rate and rhythm with a normal S1 and S2. No gallops, murmurs, or rubs. Normal PMI, no JVD. No pulse deficits. Respiratory: Lungs have equal breath sounds bilaterally, clear to auscultation and percussion. No rales, rhonchi or wheezes noted. No increased work of breathing, no retractions or nasal flaring. Abdomen/GI: Soft, non-tender, with normal bowel sounds. No distension or tympany. No guarding or rebound. No evidence of tenderness throughout. 06:57 Musculoskeletal/extremity: Extremities: noted in the left hip: contusion, decreased ROM, ROM: limited active range of motion due to pain, limited passive range of motion due to pain, in the left leg, Weight bearing: able to fully bear weight, WITH MILD DIFFICULTY. Vital Signs: 09/11 21:39 BP 126 / 88; Pulse 97; Resp 17 S; Temp 97.3(O); Pulse Ox 97% on R/A; Weight 88.45 kg jd3 (R); Height 6 ft. 0 in. (182.88 cm) (R); Pain 8/10; 23:16 BP 121 / 76; Pulse 89; Resp 17; Pulse Ox 100% on R/A; rv 21:39 Body Mass Index 26.45 (88.45 kg, 182.88 cm) jd3 MDM: 22:04 Patient medically screened. tw4 09/11 21:43 Order name: Hip Left 2 View XRAY jd3 Administered Medications: 22:19 Drug: TORadol 60 mg Route: IM; Site: right deltoid; ea 22:41 Follow up: Response: No adverse reaction; Pain is unchanged, physician notified rv 22:45 CANCELLED (Duplicate Order): morphine 4 mg IVP once; RASS on ADMIN: Combtv4, Very rv Agttd3, Agttd2, Rstlss1, AlertClm0, Drwsy-1, Lt Sdtn-2, Mod Sdtn-3, Dp Sdtn-4, UnArsble-5 22:46 Drug: morphine 4 mg {Note: RASS 0.} Route: IM; Site: left deltoid; rv 23:15 Follow up: Response: No adverse reaction; Marked relief of symptoms; Pain is decreased; rv RASS: Alert and Calm (0) 23:16 Drug: predniSONE 60 mg Route: PO; rv 23:16 Follow up: Response: Medication administered at discharge. rv Disposition: 09/11/20 23:08 Discharged to Home. Impression: Contusion of left hip. - Condition is Stable. - Discharge Instructions: Contusion, Hip Pain. - Prescriptions for Medrol (Carlos) 4 mg Oral Tablets, Dose Pack - take 1 tablet by ORAL route as directed - follow package instructions; 1 packet. - Medication Reconciliation Form, Thank You Letter, Antibiotic Education, Prescription Opioid Use form. - Follow up: Private Physician; When: Upon discharge from the Emergency Department; Reason: Recheck today's complaints, Continuance of care, Re-evaluation by your physician. - Problem is new. - Symptoms have improved. Signatures: Dispatcher [employer] EDAlessia Monique RN Ellis Valderrama ea, RN RN jd3 Wadley, Terrence, MD MD tw4 Satish Huynh RN RN rv Corrections: (The following items were deleted from the chart) 22:45 22:45 morphine 4 mg IVP once; RASS on ADMIN: Combtv4, Very Agttd3, Agttd2, Rstlss1, rv AlertClm0, Drwsy-1, Lt Sdtn-2, Mod Sdtn-3, Dp Sdtn-4, UnArsble-5 ordered. rv 23:17 23:08 09/11/2020 23:08 Discharged to Home. Impression: Contusion of left hip. Condition rv is Stable. Forms are Medication Reconciliation Form, Thank You Letter, Antibiotic Education, Prescription Opioid Use. Follow up: Private Physician; When: Upon discharge from the Emergency Department; Reason: Recheck today's complaints, Continuance of care, Re-evaluation by your physician. Problem is new. Symptoms have improved. tw4
== END 2020-09-11 23:17 | disposition home or self-care (01) ==
LOC: ER 21:31
DX: S70.02XA Contusion of left hip, initial encounter (principal); W19.XXXA Unspecified fall, initial encounter; Y93.9 Activity, unspecified; Y92.009 Unspecified place in unspecified non-institutional (private) residence as the place of occurrence of the external cause; Z88.8 Allergy status to other drugs, medicaments and biological substances; Z87.891 Personal history of nicotine dependence; E11.9 Type 2 diabetes mellitus without complications; F41.9 Anxiety disorder, unspecified; G89.29 Other chronic pain
CPT/HCPCS: 73502; 96372; 99284; J7512

== ENCOUNTER 2020-10-07 11:45 | Emergency (ER) | payer OTHER ==
--- OUTSIDE RECORDS SUMMARY | 2020-10-07 11:48 | XMS REPORT | Clinical Summary ---
:1980 Author Organization [facility] Address [address] [place] [address] Care Team Providers Name Role Phone Pcp Primary Care Provider Unavailable Pcp Primary Care Provider Unavailable Allergies Active Allergy Reactions Severity Noted Date Comments Loratadine Other (See Comments) Low 2008 anxiety Adhesive Tape Itching Low 10/05/2020 "breaks out", blisters Medications Medication Sig Dispensed Refills Start Date [...] (BUTALBITAL-ACETAMI NOP-CAF-COD ORAL)Indications: for migraines acetaminophen-codei Take 1 tablet by 16 tablet 0 10/05/2020 Active ne (TYLENOL #4) mouth every 4 300-60 mg per (four) hours as tablet needed for Pain for up to 10 days. Max Daily Amount: 6 tablets acetaminophen-codei Take 1-2 tablets by 30 tablet [...] 4 tablets Active Problems Problem Noted Date Spinal cord stimulator status 10/05/2020 Malfunction of spinal cord stimulator 08/17/2020 Encounters Date Type Specialty Care Team Description 10/05/2020 Surgery Kvng, REMOVAL,NEUROST IMULATOR MD Miguel ELECTRODES 10/05/2020 Anesthesia Event Manuel Mcgraw MD 10/05/2020 Hospital Encounter Miguel Calderon MD 09/19/2020 Hospital Encounter Miguel Calderon MD 09/19/2020 Hospital Encounter Pre-Admission Testing 09/13/2020 Orders Only Miguel Calderon MD 08/17/2020 Surgery TRANG Calderon/ MD Miguel REPLACEMENT,SPI [...] for viral disease 08/12/2020 Hospital Encounter Pre-Admission Jeet Calderon MD 08/12/2020 Outside Orders Pcp, No 08/12/2020 Orders Only Neurosurgery Kvng Special screeni ng examination for viral disease (Primary Dx); MD Miguel Pre-op testing 08/12/2020 Orders Only Neurosurgery Miguel Calderon MD 08/12/2020 Orders Only Neurosurgery Miguel Calderon MD 08/12/2020 Travel 08/03/2020 Emergency Emergency Medicine [place], Michael l ow back pain, MD Will unspecified anna k pain laterality, uns pecified whether sciatic a present (Primar y Dx) 08/03/2020 Travel after 10/07/2019 Social History Tobacco Use Types Packs/Day Years [...] Assigned at Date Recorded Not on file Last Filed Vital Signs Vital Sign Reading Time Taken Comments Blood Pressure 125/92 10/05/2020 7:45 PM [facility] Pulse 97 10/05/2020 7:45 PM [facility] Temperature 36.8 C (98.2 F) 10/05/2020 7:45 PM [facility] Respiratory Rate 16 10/05/2020 7:45 PM [facility] Oxygen Saturation 96% 10/05/2020 7:45 PM [facility] Inhaled Oxygen Concentration - - Weight 85 kg (187 lb 6.3 oz) 10/05/2020 9:00 AM [facility] Height 182.9 cm (6') 10/05/2020 9:00 AM [facility] Body Mass Index 25.41 10/05/2020 9:00 AM [facility] Plan of Treatment Health Maintenance Due Date Last Done Comments LIPID PANEL 2017 INFLUENZA VACCINE (#1) 2020 Implants Implanted Type Area Automation Tender Device Identifier Shelf Model / Expiration Serial / Date Lot Mri Intellis Sensor [id number] - [id number] IMPLANTS Right: Back M EDTRONIC:NEURO [id number] 07/08/2021 [id number] / Implanted: Qty: 1 on 08/17/2020 by Miguel Madison MD at [facility] MODULATION NME [id number] / Lead Vectris Surescan 1x8 60cm [id number] - [id number] IMPLANTS N/A: Spine MEDTRONIC:NEURO [id number] 06/10/2024 [id number] / Implanted: Qty: 1 on 08/17/2020 by Miguel Madison MD at [facility] Thoracic MODULATION VA2 [id number] / Lead Vectris Surescan 1x8 60cm [id number] - [id number] IMPLANTS N/A: Spine MEDTRONIC:NEURO [id number] 06/10/2024 [id number] / Implanted: Qty: 1 on 08/17/2020 by Miguel Madison MD at [facility] Thoracic MODULATION [id number] / Procedures Procedure Name Priority Date/Time Associated Diagnosis Comme nts FL FLUORO Routine 10/05/2020 4:30 PM Results for this NON-SPECIFIC UP TO [employer] procedure are in 1 HOUR the results section. PROCEDURE W/ C-ARM 10/05/2020 2:59 PM Spinal cord [employer] stimulator status Case Notes 60 MINS PER VIVIANPATIENT IS N'T A DIALYSIS PATIENT OKAYED BY RALPH/NELI 10 @ 1652 Special Needs (C-ARM) REMOVAL,NEUROSTIMULATOR ELECTRODES 10/05/2020 2 :59 PM [facility] [employer] Spinal cord stimulator status Case Notes 60 MINS PER VIVIANPATIENT IS N'T A DIALYSIS PATIENT OKAYED BY RALPH/NELI 09/13 @ 1652 Special Needs (C-ARM) XR CHEST 2 VIEWS Routine 09/19/2020 1:15 PM CDT Results for this procedure are in the results sec tion. ECG 12-LEAD Routine 09/19/2020 12:53 PM CDT Procedure Note - Interface, External Ris In - 09/19/2020 4:16 PM CDT Ventricular Rate 73 BPM Atrial Rate 73 BPM P-R Interval 112 ms QRS Duration 92 ms Q-T Interval 380 ms QTC Calculation(Bazett) 418 ms P [place] 67 degrees R [place] 82 degrees T [place] 0 degrees Normal sinus rhythm Normal ECG When compared with ECG of 15:19, Inverted T waves have replac ed nonspecific T wave abnormality in Inferior leads ECG 12-LEAD Routine 09/19/2020 12:53 Results for this PM CDT procedure are i n the results section. CBC W/PLT COUNT & Routine 09/19/2020 12:49 Result s for this AUTO DIFFERENTIAL PM CDT procedure are in the results section. TYPE AND SCREEN, Routine 09/19/2020 12:49 Results for this AUTOMATED PM CDT procedure are i n the results section. URINALYSIS W/ REFLEX Routine 09/19/2020 12:49 Res ults for this URINE CULTURE PM CDT procedure are in the results section. PT/APTT Routine 09/19/2020 12:49 Results for this PM CDT procedure are i n the results section. CBC W/PLT COUNT & Routine 09/19/2020 12:49 Result s for this AUTO DIFFERENTIAL PM CDT procedure are in the results section. BASIC METABOLIC Routine 09/19/2020 12:49 Results for this PANEL (7) PM CDT procedure are i n the results section. RHYTHM STRIP - SCAN 08/19/2020 8:40 AM CDT FL FLUORO STAT 08/17/2020 9:16 Results for this NON-SPECIFIC UP TO 1 AM CDT procedu re are in HOUR the results section. TISSUE EXAM AP [...] 376 ms QTC Calculation(Bazett) 425 ms P [place] 53 degrees R [place] 43 degrees T [place] 37 degrees Normal sinus rhythm Normal ECG [...] in viral disease the results section. after 10/07/2019 Results FL fluoro non-specific up to 1 hour (10/05/2020 4:30 PM [facility] [employer])Only the most recent of2 resultswithin the time period is included. Specimen Narrative Performed At Fluoroscopic unit utilized for a procedure performed i n the OR. No [employer] RIS interpretation was requested. Refer to the operative report for findings. Refer to PACS for patient radiation dose i nformation. Procedure Note Interface, External Ris In - 10/05/2020 6:35 PM [facility] Fluoroscopic unit utilized for a procedu re performed in the OR. No interpretation was requested. Refer to the operative r eport for findings. Refer to PACS for patient radiation dose information. Performing Organization Address City/State/Zipcode Phone Number GE RIS XR chest 2 views (09/19/2020 1:15 PM CDT)Only the most recent of2 resultswithin the time period is included. Specimen Narrative Performed At FINAL REPORT [employer] INDICATION: Spinal cord status, pre-op COMPARISON: None TECHNIQUE: Frontal and lateral views of the chest. FINDINGS: Lungs and pleura: Clear lungs. No effusi on. Heart and mediastinum: Normal heart size . Unremarkable mediastinal contours. Osseous structures: No acute abnormality . Additional findings: None. IMPRESSION: No acute intrathoracic abnormality. Signed: Francisca Hernandez MD Report Verified Date/Time: 09/19/2020 14:07:11 Reading Location: [facility] Reading Room Procedure Note Interface, External Ris In - 09/19/2020 2:09 PM CDT FINAL REPORT INDICATION: Spinal cord status, pre-op COMPARISON: None TECHNIQUE: Frontal and lateral views of the chest. FINDINGS: Lungs and pleura: Clear lungs. No effusi on. Heart and mediastinum: Normal heart size . Unremarkable mediastinal contours. Osseous structures: No acute abnormality . Additional findings: None. IMPRESSION: No acute intrathoracic abnormality. Signed: Francisca Hernandez MD Report Verified Date/Time: 09/19/2020 1 4:07:11 Reading Location: [facility] Reading Room Performing Organization Address City/State/Zipcode Phone Number GE RIS ECG 12 lead (09/19/2020 12:53 PM CDT)Only the most recent of2 resultswithin the time period is included. Specimen Narrative Performed At This result has an attachment that is no t available. Ventricular Rate 73 BPM GE MUSE Atrial Rate 73 BPM P-R Interval 112 ms QRS Duration 92 ms Q-T Interval 380 ms QTC Calculation(Bazett) 418 ms P [place] 67 degrees R [place] 82 degrees T [place] 0 degrees Normal sinus rhythm Early repolarization - mkild Normal ECG When compared with ECG of 12-AUG-2020 15:19, Inverted T waves have replaced nonspecific T wave abno rmality in III Mild early repolarization now seen Confirmed by MD RIK, [facility] ([id number]) on 09/20/2020 7:03:57 AM Procedure Note Interface, External Ris In - 09/20/2020 7:04 AM CDT Ventricular Rate 73 BPM Atrial Rate 73 BPM P-R Interval 112 ms QRS Duration 92 ms Q-T Interval 380 ms QTC Calculation(Bazett) 418 ms P [place] 67 degrees R [place] 82 degrees T [place] 0 degrees Normal sinus rhythm Early repolarization - mkild Normal ECG When compared with ECG of 12-AUG-2020 15 :19, Inverted T waves have replaced nonspecif ic T wave abnormality in III Mild early repolarization now seen Confirmed by MD RIK, [facility] ([id number]) on 09/20/2020 7:03:57 AM Performing Organization Address City/[facility]/Zipcode Phone Number GE MUSE Urinalysis w/Microscopic + Reflex to Culture (09/19/2020 12:49 PM CDT)Only the most recent of2 resultswithin the time period is included. Color, UA Yellow [facility] Clarity, UA Clear [facility] Specific [place], 1.030 1.001 - 1.035 [facility] pH, UA 5.5 5.0 - 8.0 [facility] Protein, UA 10 mg/dL (A) Negative [facility] Glucose, UA Negative Negative [facility] Ketones, UA Negative Negative [facility] Bilirubin, UA Negative Negative [facility] Blood, UA Negative Negative [facility] Nitrite, UA Negative Negative [facility] Leukocytes, UA Negative Negative [facility] Urobilinogen, UA 0.2 0.2 - 1.0 mg/dL [facility] RBC, UA <1 /HPF [facility] WBC, UA <1 /HPF [facility] Mucus Few [facility] Specimen Source [facility] Specimen Urine - Urine specimen collection, clean catch (procedure) Narrative Performed At Adjuster ID - [auto] [facility] Adjuster ID - tech Performing Organization Address City/[facility]/Zipcode Phone Number [facility] [address] [place] [address] CENTER Type and screen, automated (09/19/2020 12:49 PM CDT)Only the most recent of2 resultswithin the time period is included. Pathologist Sig nature ABO/RH AUTOMATED AB POSITIVE [facility] (BEAKER) [facility] Ab Scrn NEGATIVE [facility] Specimen Blood - Entire left upper arm (body stru cture) Performing Organization Address [facility] Phone Number [facility] [address] [place], [place] [id number] PT/aPTT (09/19/2020 12:49 PM CDT) Pathologist Sig formerly [facility] Protime 13.4 11.9 - 14.2 seconds [facility] INR 1.05 <=5.90 [facility] PTT 31.8 22.5 - 36.0 seconds [facility] Specimen Blood - Entire left upper arm (body stru cture) Narrative Performed At Effective 04/22/2019: PT Reference Range [facility] Change New: 11.9-14.2 Previous: 11.7-14.7 RECOMMENDED COUMADIN/WARFARIN INR THERAPY RANGES STANDARD DOSE: 2.0-3.0 Includes: PROPHYLAXIS for venous thrombosis, systemic embolization; TREATMENT for venous thrombosis and/or pulmonary embolus. HIGH RISK: Target INR is 2.5-3.5 for patients wiht mechanical heart valves. Performing Organization Address [facility] Cent[facility]ode Phone Number [facility] [address] [place] [address] CENTER CBC with platelet count + automated diff (09/19/2020 12:49 PM CDT)Only the most recent of2 resultswithin the time period is included. Pathologist Sig nature WBC 9.3 3.5 - 10.5 [facility] K/L [facility] RBC 5.40 4.63 - 6.08 [facility] M/L [facility] Hemoglobin 15.5 13.7 - 17.5 [facility] GM/DL [facility] Hematocrit 48.5 40.1 - 51.0 % [facility] MCV 89.8 79.0 - 92.2 fL [facility] MCH 28.7 25.7 - 32.2 pg [facility] MCHC 32.0 (L) 32.3 - 36.5 [facility] GM/DL [facility] RDW 12.9 11.6 - 14.4 % [facility] Platelets 238 150 - 450 K/CU [facility] MM [facility] MPV 10.8 9.4 - 12.4 fL [facility] nRBC 0 0 - 0 /100 WBC [facility] % Neutros 73 % [facility] % Lymphs 19 % [facility] % Monos 7 % [facility] % Eos 1 % [facility] % Baso 0 % [facility] # Neutros 6.74 (H) 1.78 - 5.38 [facility] # Lymphs 1.79 1.32 - 3.57 [facility] # Monos 0.65 0.30 - 0.82 [facility] # Eos 0.06 0.04 - 0.54 [facility] # Baso 0.02 0.01 - 0.08 [facility] Immature 0 0 - 1 % [facility] Granulocytes-Relative [facility] Specimen Blood - Entire left upper arm (body stru cture) Performing Organization Address City/State/Zipcode Phone Number [facility] [address] [place] [address] CENTER Basic Metabolic Panel (09/19/2020 12:49 PM CDT)Only the most recent of2 results within the time period is included. Sodium 139 136 - 145 meq/L [facility] Potassium 3.7 3.5 - 5.1 meq/L [facility] Chloride 105 98 - 107 meq/L [facility] CO2 28 22 - 29 meq/L [facility] BUN 12 7 - 21 mg/dL [facility] Creatinine 1.21 0.57 - 1.25 [facility] mg/dL [facility] Glucose 109 (H) 70 - 105 mg/dL [facility] Calcium 8.6 8.4 - 10.2 [facility] mg/dL [facility] EGFR 81Comment: ESTIMATED mL/min/1.73 sq [facility] GFR IS NOT m [facility] ACCURATE [place] CREATININE CLEARANCE IN PREDICTING GLOMERULAR FILTRATION RATE. ESTIMATED GFR IS NOT APPLICABLE FOR DIALYSIS PATIENTS. Specimen Blood - Entire left upper arm (body stru cture) Narrative Performed At Adjuster ID - JATINDER Mena [facility] Performing Organization Address City/State/Zipcode Phone Number [facility] [address] [place] [address] CENTER RHYTHM STRIP - SCAN (08/19/2020 8:40 AM CDT) Narrative Performed At This result has an attachment that is no t available. Tissue Exam (08/17/2020 8:40 AM CDT) Case Report Surgical Pathology Report Case: [id number] [facility] Authorizing Provider: Miguel Jackman MD Collected: 08/17/2020 08:40 AM [facility] Ordering Location: [facility] PERIOPERATIVE Received: 08/17/2020 10:07 AM [facility] Pathologist: Eboni Renner MD Specimen: Other, Spinal Cord Stimulator; for ID only DIAGNOSIS A. SPINAL CORD STIMULATOR, REMOVAL: [facility] Electronically - DEPENDENCY COUNSELOR FOR GROSS IDENTIFICATION ONLY [facility] signed by Ramineni, MEDICAL CENTER Eboni, M D on Signing Pathologist Direct Phone Line: [phone] 08/17/2020 at 12:59 PM CPT Code(s) 62249 [facility] CLINICAL HISTORY Preop diagnosis: JUICE LEON Malfunction of spinal [facility] cord stimulator, MEDICAL CENTER initial encounter. SPECIMEN SOURCE Other [facility] GROSS DESCRIPTION Received fresh labeled with the patient's name, accession number and "spinal cord stimulator" is a 5.2 x 5.2 x 0.8 cm metallic duran-piece of hardware, which is consistent with with a neural stimulator, JUICE LEON and a 8.0 x 4.5 x 0.4 cm agg regate of metallic duran tubing. The following inscription is identified: [facility] SureScan MRI SN [id number] A gross photograph is taken. No sections are submitted. This case is for gross examination only. PA/pl MICROSCOPIC NA [facility] DES[facility] Specimen Tissue - Other Performing Organization Address City/State/Zipcode Phone Number [facility] [address] [place] [address] CENTER TRANSFUSION SERVICE REPORT - SCAN (08/13/2020 6:04 PM CDT) Narrative Performed At This result has an attachment that is no t available. SARS-CoV2/RT-PCR ([facility]) (08/12/2020 3:14 PM CDT) SARS-COV2/RT-PCR Negative Not Detected, [facility] Negative, See [facility] external report CENTER for linked test SARS-COV-2 [facility] PERFORMING LAB [facility] Specimen Other - Nasopharyngeal wall structure (b florentino structure) Narrative Performed At Negative result for this test determines that [facility] SARS-CoV-2 RNA was not present in [...] the Act. Fact Sheet for Healthcare Providers: https://www.[employer]/sites/default/files/pro duct/documents/Fact_Sheet_HC_Providers_Lyra_SA RS-CoV-2.pdf Fact Sheet for Healthcare Patients: https://www.[employer]/sites/default/files/pro duct/documents/Fact_Sheet_Patients_Lyra_SARS-C oV-2.pdf Performing Laboratory: [address] [place] [address] Performing Organization Address City/[facility]/Zipcode Phone Number [address] [address] CENTER aPTT (08/12/2020 3:14 PM CDT) [facility] PTT 33.7 22.5 - 36.0 seconds [facility] Specimen Blood Performing Organization Address [facility]/Zipcode Phone Number [address] [address] [place] Prothrombin time/INR (08/12/2020 3:14 PM CDT) Pathologist Sig nature Protime 13.4 11.9 - 14.2 seconds [facility] INR 1.05 <=5.90 [facility] Specimen Blood Narrative Performed At Effective 04/22/2019: PT Reference Range [facility] Change New: 11.9-14.2 Previous: 11.7-14.7 RECOMMENDED COUMADIN/WARFARIN INR THERAPY RANGES STANDARD DOSE: 2.0-3.0 Includes: PROPHYLAXIS for venous thrombosis, systemic embolization; TREATMENT for venous thrombosis and/or pulmonary embolus. HIGH RISK: Target INR is 2.5-3.5 for patients wiht mechanical heart valves. Performing Organization Address City/State/Zipcode Phone Number [facility] [address] [place] [address] CENTER after 10/07/2019 Insurance Payer Benefit Plan Subscriber ID Effective Phone Address Typ e / Group Dates MEDICAID - JOSE UH COMM [id number] 2020-Prese Me dicaid MEDICAID MGD STAR PLAN nt [facility] MEDICAID MEDICAID OF [id number] 2020-Prese Med icaid [place] nt CDC REVIEW CDC REVIEW [id number] 2020-[place] [place] [address] Advance Directives For more information, please contact: [phone] Code Status Date Activated Date Inactivated Comments Full Code 10/05/2020 9:31 AM 10/06/2020 2:01 AM This code status was determined by: Patient Full Code 08/17/2020 7:15 AM 08/17/2020 8:26 PM This code status was determined by: Patient
--- OUTSIDE RECORDS SUMMARY | 2020-10-07 11:49 | XMS REPORT | Continuity of Care Document ---
:1980 Author Organization [facility] t Address [address] [place] [place] [address] Care Team Providers Name Role Phone Pcp Primary Care Physician Unavailable Heron DEMPSEY Attending Clinician Madalyn Mcgraw MD Attending Clinician Niko Hui MD Attending Clinician HERON Attending Clinician Unavailable Pcp Attending Clinician Unavailable Ramona DEMPSEY Attending Clinician William OBNDS Attending Clinician Baudilio Fiore MD Attending Clinician HERON Admitting Clinician Unavailable Payers Payer Name Policy Type Policy Effective Date Expiration Date Sour ce Number MEDICAID - MEDICAID [id number] 2020 JUICE Yu MGD CARED [facility] COMM 00:00:00 - Med [facility] [id number] PresentMedicaid Contracted MEDICAIDMEDICAID OF [id number] 2020 JUICE [id number] 00:00:00 - Medical -PresentMedicaid Center CDC REVIEWCDC [id number] 2020 JUICE Luque [id number] 00:00:00 [place] [address] Problems Condition Condition Condition Status Onset Resolution Last Treating Co mments Source Name Details Category Date Date Treatment Clinician Date Spinal Spinal Disease Active 2019-11 [facility] cord cord -11 [facility] - stimulator stimulator 00:00: Me dical status status 00 Purchase Malfunctio Malfunctio Disease Active [facility] of 08-17 [facility] - spinal spinal 00:00: Medical cord cord 00 Center stimulator stimulator Allergies, Adverse Reactions, Alerts Allergy Allergy Status Severity Reaction(s) Onset Inactive Treating Comm ents Source Name Type Date Date Clinician Adhesive Drug Active Itching 2019-11 "breaks [facility] St Tape Intolera 12-05 out", [facility] - nce 00:00: blisters Medical [address] [place] [address] Loratadi Propensi Active Other (See anxiety [facility] ne ty to Comments) 04-30 [facility] - adverse 00:00: Medical reaction 00 Purchase s Social History Social Habit Start Date Stop Date Quantity Comments Source History [facility] - Alcohol Std Drinks Medica l Center History [facility] - Alcohol Binge Medical Ryan ter Sex Assigned At [facility] Tobacco use and 2020-10-06 2020-10-[address] [facility]00 00:00:00 [facility] Alcohol intake 2020-10-06 2020-10-[address] 00:00:00 non-drinker of Medical Ce nter alcohol (finding) History [facility] 2020-08-03 2020-08-03 1 [facility] - Alcohol Frequency 00:00:00 00:00:00 [facility] Smoking Status Start Date Stop Date Source [facility] Purchase Medications Ordered Filled Start Stop Current Ordering Indication Dosage Frequency Signature Comments Components Source Medication Medication Date Date Medication? Clinician (SIG) Name Name HYDROcodone 2019-11 Yes 1{tbl} Take [address] -acetaminop 1-12 tablet by Delmar lopez (NORCO 00:01: mouth Medica l 5-325) 37 every 6 Center 5-325 mg (six) per tablet hours as needed for Pain. zolpidem 2019-11 Yes 12.5mg Take 12.[address] (AMBIEN CR) 1-12 mg by [facility] - 12.5 MG CR 00:01: mouth Medica l tablet 37 every Center night as needed for Insomnia. ondansetron 2019-11 Yes 4mg Take [address] (ZOFRAN) 4 1-12 by mouth 2 [place] es - MG tablet 00:01: (two) Medical 37 times Center daily as needed for Nausea. budesonide 2019-11 Yes .25mg Q.5D Take 0.[address] (PULMICORT) 1-12 mg by [facility] - 0.25 mg/2 00:01: nebulizati Me dical mL 37 on 2 (two) Center nebulizer times solution daily. diazePAM 2019-11 Yes 10mg Take [address] (VALIUM) 5 1-12 by mouth [facility] - MG tablet 00:01: every 6 Medic al 37 (six) Center hours as needed for Anxiety. venlafaxine 2019-11 Yes 150mg QD Take [address] (EFFEXOR-XR 1-12 mg by Aimee - ) 150 MG 24 00:01: mouth Medic al hr capsule 37 daily. Center ARIPiprazol 2019-11 Yes 10mg QD Take [address] [facility] (ABILIFY) 1-12 by mouth Luke s - 10 MG 00:01: daily. Medical tablet 37 Center butalbit/ac 2019-11 Yes Take by [facility] etamin/caff 1-12 mouth. [facility] - /codeine 00:01: Medical (BUTALBITAL 37 Center -ACETAMINOP -CAF-COD ORAL) acetaminoph 2019-11 2020- Yes 1{tbl} Take [address] en-codeine 1-11 11-21 tablet by Delmar hernandez - (TYLENOL 00:00: 23:59 mouth Medical #4) 300-60 00 :00 every 4 Center mg per (four) tablet hours as needed for Pain for up to 10 days. Max Daily Amount: 6 tablets acetaminoph 2020- No 1{tbl} Take 1-[address] en-codeine 9-23 10-03 tablets by Yancy baums - (TYLENOL-CO 00:00: 23:59 mouth Medi lino DEINE #3) 00 :00 every 4 Center 300-30 mg (four) per tablet hours as needed for Pain for up to 10 days. Max Daily Amount: 12 tablets HYDROcodone 2019- No 1{tbl} Take [address] -acetaminop - 10-03 tablet by Yancy lopez (NORCO 00:00: 23:59 mouth Medic al 10-325) 00 :00 every 6 Center 10-325 mg (six) per tablet hours as needed for Pain for up to 10 days. Max Daily Amount: 4 tablets Vital Signs Vital Name Observation Time Observation Value Comments Source Systolic blood 2020-10-05 19:45:00 125 mm[Hg] [facility] Diastolic blood 2020-10-05 19:45:00 92 mm[Hg] [facility] Heart rate 2020-10-05 19:45:00 97 /min [facility] Body temperature 2020-10-05 19:45:00 36.78 Gabriela [facility] Respiratory rate 2020-10-05 19:45:00 16 /min [facility] Oxygen saturation in 2020-10-05 19:45:00 96 /min [facility] Arterial blood by Medical Ce nter Pulse oximetry Body height 2020-10-05 09:00:00 182.9 cm [facility] Body weight 2020-10-05 09:00:00 85 kg [facility] BMI 2020-10-05 09:00:00 25.41 kg/m2 [facility] Procedures Procedure Date / Time Performing Clinician Source Performed [place] FLUOR[place] NON-SPECIFIC UP 2020-10-05 16:30:00 HeronCornell [facility] - TO 1 HOUR [facility] REMOVAL,NEUROSTIMULATOR 2020-10-05 14:59:00 HeronMiguel [facility] ELECTRODES [facility] PROCEDURE W/ C-ARM 2020-10-05 14:59:00 [facility] XR CHEST 2 VIEWS 2020-09-19 13:15:00 [facility] Miguel [facility] ECG 12-LEAD 2020-09-19 12:53:30 Unknown, Hl7 Doctor [facility] BASIC METABOLIC PANEL (7) 2020-09-19 12:49:00 Cornell Calderon [facility] PT/APTT 2020-09-19 12:49:00 Miguel Calderon [facility] URINALYSIS W/ REFLEX URINE 2020-09-19 12:49:00 Odilon Calderon [facility] TYPE AND SCREEN, AUTOMATED 2020-09-19 12:49:00 Odilon Calderon in [facility] CBC W/PLT COUNT & AUTO 2020-09-19 12:49:00 Miguel Calderon [facility] RHYTHM STRIP - SCAN 2020-08-19 08:40:25 Provider, Default [facility] [place] FLU[place] NON-SPECIFIC UP 2020-08-17 09:16:00 Cornell Calderon [facility] TO 1 HOUR [facility] TISSUE EXAM 2020-08-17 08:40:00 Miguel Calderon [facility] REVISION/ 2020-08-17 07:41:00 Miguel Calderon [facility] - REPLACEMENT,SPINAL Medical Cente r NEUROSTIMULATOR LEAD(S) PROCEDURE W/ C-ARM 2020-08-17 07:41:00 Heron, Miguel [facility] TRANSFUSION SERVICE REPORT 2020-08-13 18:04:04 Provider, Default [facility] XR CHEST 2 VIEWS 2020-08-12 15:37:00 HeronMiguel broussard [facility] ECG 12-LEAD 2020-08-12 15:19:21 Unknown, Hl7 Doctor [facility] SARS-COV2/RT-PCR ([facility] & 2020-08-12 15:14:00 Miguel Calderon [facility] - REF LABS) [facility] BASIC METABOLIC PANEL (7) 2020-08-12 15:14:00 Cornell Calderon [facility] URINALYSIS W/ REFLEX URINE 2020-08-12 15:14:00 Odilon Calderon in [facility] APTT 2020-08-12 15:14:00 Miguel Calderon [facility] PROTHROMBIN TIME/INR 2020-08-12 15:14:00 Miguel Calderon [facility] TYPE AND SCREEN, AUTOMATED 2020-08-12 15:14:00 Parker Calderonw in [facility] CBC W/PLT COUNT & AUTO 2020-08-12 15:14:00 Miguel Calderon [facility] Plan of Care Planned Activity Planned Date Details Comments Source Future Scheduled 2020-07-26 INFLUENZA VACCINE [facility] - Test 00:00:00 (#1) [code = [facility] INFLUENZA VACCINE (#1)] Future Scheduled 2017 Lipid panel [facility] - Test 00:00:00 (procedure) [code = [facility] 69620410] Encounters Start End Encounter Admission Attending Care Care Encounter Source Date/Time Date/Time Type Type Clinicians Facility Department ID 2020-02-19 2020-02-19 Emergency [facility] [id number] 20:56:33 21:37:00 Fabien Gómez [id number] [place] [id number] [place] [id number] 2020-02-13 2020-02-13 Emergency [facility] [id number] 05:38:10 06:52:00 Jayden Gómez [id number] [place] [id number] [place] [id number] Results Test Description Test Time Test Comments Results Result [facility] e Comments [place], FLUORO, 2020-10-05 Reason for NON-SPECIFIC, UP 16:30:00 exam:->intrat TO 1 HOUR [facility] 1980 Sex: M *Fluoroscopic unit utilized for a procedure performed in the OR. No interpretation was requested. Refer to the operative report for findings. Refer to PACS for patient radiation dose information. [place] fluoro 2020-10-05 [facility] non-specific up 16:30:00 Ris In - 10/05/2020 - Medical to 1 hour 6:35 PM Center CSTFluoroscopic unit utilized for a procedure performed in the OR. No interpretation was requested. Refer to the operative report for findings. Refer to PACS for patient radiation dose information. ECG 12 lead 2020-09-20 Interface, External [facility] 07:04:01 Ris In - 09/20/2020 - Med ical 7:04 AM Center CDTVentricular Rate 73 BPMAtrial Rate 73 BPMP-R Interval 112 msQRS Duration 92 msQ-T Interval 380 msQTC Calculation(Bazett) 418 msP [place] 67 degreesR [place] 82 degreesT [place] 0 degreesNormal sinus rhythmEarly repolarization - mkildNormal ECGWhen compared with ECG of 12-AUG-2020 15:19,Inverted T waves have replaced nonspecific T wave abnormality in IIIMild early repolarization now seenConfirmed by MD RIK, [facility] ([id number]) on 09/20/2020 7:03:57 AM RAD, CHEST, 2 2020-09-19 Reason for VIEWS 14:07:00 exam:->Spinal cord status, pre-op [facility] 1980 Sex: M *FINAL REPORT INDICATION: Spinal cord status, pre-op COMPARISON: None TECHNIQUE: Frontal and lateral views of the chest. FINDINGS: Lungs and pleura: Clear lungs. No effusion.Heart and mediastinum: Normal heart size. Unremarkable mediastinal contours.Osseous structures: No acute abnormality.Addition al findings: None. IMPRESSION: No acute intrathoracic abnormality. Signed: Francisca Parish Verified Date/Time: 09/19/2020 14:07:11 Reading Location: [facility] Radiology Reading Room chest 2 views 2020-09-19 Interface, External [facility] 14:07:00 Ris In - 09/19/2020 - Med ical 2:[address] [facility] INDICATION: Spinal cord status, pre-op COMPARISON: None TECHNIQUE: Frontal and lateral views of the chest. FINDINGS: Lungs and pleura: Clear lungs. No effusion.Heart and mediastinum: Normal heart size. Unremarkable mediastinal contours.Osseous structures: No acute abnormality.Addition al findings: None. IMPRESSION: No acute intrathoracic abnormality. Signed: Francisca Parish Verified Date/Time: 09/19/2020 14:07:11 Reading Location: [facility] Radiology Reading Room Type and screen, automated 2020-09-19 13:48:00 Test Item Value Reference Range Interpretation Comme nts ABO/RH AUTOMATED (BEAKER) (test code = 2260) AB POSITIVE Ab Scrn (test code = 890-4) NEGATIVE [facility] [id number] 13:38:00 Test Item Value Reference Range Interpretation Comments Sodium (test code = 139 meq/L 256-986 2474-2) Potassium (test code = 3.7 meq/L 3.5-5.1 2823-3) Chloride (test code = 105 meq/L 98-107 5-0) CO2 (test code = 28 meq/L 22-29 8-9) BUN (test code = 12 mg/dL 7-21 3094-0) Creatinine (test code 1.21 mg/dL 0.57-1.25 = 2160-0) Glucose (test code = 109 mg/dL 70-105 H 2345-7) Calcium (test code = 8.6 mg/dL 8.4-10.2 64549-2) EGFR (test code = 81 mL/min/1.73 [place] [address]-7) NOT ACCURATE CREATININE CLEARANCE IN PREDICTING GLOMERULAR FILTRATION RATE . ESTIMATED GFR I S NOT APPLICABLE FOR DIALYSIS PATIENTS. ENE (test code = ENE) Fire Services Plumber ID - JATINDER C Lab Interpretation Abnormal (test code = 06414-0) [facility] w/Microscopic + Reflex to Culture 2020-09-19 13:38:00 Test Item Value Reference Range Interpretation Comments Color, UA (test code = Yellow 5778-6) Clarity, UA (test code = Clear 5767-9) Specific [place], UA (test 1.030 1.001-1.035 code = 5811-5) pH, UA (test code = 5.5 5.0-8.0 5803-2) Protein, UA (test code = 10 mg/dL Negative A 95385-8) Glucose, UA (test code = Negative Negative 365) Ketones, UA (test code = Negative Negative 2514-8) Bilirubin, UA (test code = Negative Negative 34142-8) Blood, UA (test code = Negative Negative 20810-9) Nitrite, UA (test code = Negative Negative 5802-4) Leukocytes, UA (test code Negative Negative = 5799-2) Urobilinogen, UA (test 0.2 mg/dL 0.2-1 code = 55861-9) RBC, UA (test code = <1 /HPF 44809-9) WBC, UA (test code = <1 /HPF 5821-4) Mucus (test code = 8247-9) Few Specimen Source (test code = 2795) ENE (test code = ENE) Fire Services Plumber ID - [auto]Fire Services Plumber ID - tech Lab Interpretation (test Abnormal code = 78652-3) [facility] W/ REFLEX URINE [id number] 13:38:00 Test Item Value Reference Range Interpretation Comments COLOR (BEAKER) (test code = 470) Yellow CLARITY (BEAKER) (test code = 469) Clear SPECIFIC GRAVITY UA (BEAKER) (test 1.030 1.001-1.035 code = 468) PH UA (BEAKER) (test code = 467) 5.5 5.0-8.0 PROTEIN UA (BEAKER) (test code = 10 mg/dL Negative A 464) GLUCOSE UA (BEAKER) (test code = Negative Negative 365) KETONES UA (BEAKER) (test code = Negative Negative 371) BILIRUBIN UA (BEAKER) (test code = Negative Negative 462) BLOOD UA (BEAKER) (test code = 461) Negative Negative NITRITE UA (BEAKER) (test code = Negative Negative 465) LEUKOCYTE ESTERASE UA (BEAKER) Negative Negative (test code = 466) UROBILINOGEN UA (BEAKER) (test code 0.2 mg/dL 0.2-1.0 = 463) RBC UA (BEAKER) (test code = 519) < /HPF WBC UA (BEAKER) (test code = 520) < /HPF MUCUS (BEAKER) (test code = 1574) Few SOURCE(BEAKER) (test code = 2795) [employer] Services Plumber ID - [auto]Fire Services Plumber ID - techBASIC METABOLIC [id number] 13:38:00 Test Item Value Reference Range Interpretation Comments SODIUM (BEAKER) 139 meq/L 136-145 (test code = 381) POTASSIUM (BEAKER) 3.7 meq/L 3.5-5.1 (test code = 379) CHLORIDE (BEAKER) 105 meq/L 98-107 (test code = 382) CO2 (BEAKER) (test 28 meq/L 22-29 code = 355) BLOOD UREA NITROGEN 12 mg/dL 7-21 (BEAKER) (test code = 354) CREATININE (BEAKER) 1.21 mg/dL 0.57-1.25 (test code = 358) GLUCOSE RANDOM 109 mg/dL 70-105 H (BEAKER) (test code = 652) CALCIUM (BEAKER) 8.6 mg/dL 8.4-10.2 (test code = 697) EGFR (BEAKER) (test 81 mL/min/1.73 ESTIMA THALIA GFR IS code = 1092) sq m NOT ACCURATE CREATININE CLEARANCE IN PREDICTING GLOMERULAR FILTRATION RATE . ESTIMATED GFR I S NOT APPLICABLE FOR DIALYSIS PATIEN TS. Fire Services Plumber ID - JATINDER CPT/[id number] 13:37:00 Test Item Value Reference Range Interpretation Comments Protime (test code = 13.4 11.9- 14.2 5902-2) seconds INR (test code = 1.05 <=5.90 6301-6) PTT (test code = 31.8 22.5- 36.0 79455-5) seconds ENE (test code = ENE) Effective 04/22/2019: PT Reference Range ChangeNew: 11.9-14.2 Previous: 11.7-14.7 RECOMMENDED COUMADIN/WARFARIN INR THERAPY RANGESSTANDARD DOSE: 2.0-3.0 Includes: PROPHYLAXIS for venous thrombosis, systemic embolization; TREATMENT for venous thrombosis and/or pulmonary embolus.HIGH RISK: Target INR is 2.5-3.5 for patients wiht mechanical heart valves. Lab Interpretation Normal (test code = 18645-1) [facility] HospitalPT/[id number] 13:37:00 Test Item Value Reference Range Interpretation Comments PROTIME (BEAKER) (test code = 13.4 seconds 11.9-14.2 759) INR (BEAKER) (test code = 370) 1.05 <=5.90 PARTIAL THROMBOPLASTIN TIME 31.8 seconds 22.5-36.0 (BEAKER) (test code = 760) Effective 04/22/2019: PT Reference Range ChangeNew: 11.9-14.2 Previous: 11.7- 14.7RECOMMENDED COUMADIN/WARFARIN INR THERAPY RANGESSTANDARD DOSE: 2.0-3.0 Includes: PROPHYLAXIS for venous thrombosis, systemic embolization; TREATMENT for venous thrombosis and/or pulmonary embolus.HIGH RISK: Target INR is2.5-3.5 for patients wiht mechanical heart valves.CBC with platelet count + automated [id number] 13:20:00 Test Item Value Reference Range Interpretation Comments WBC (test code = 6690-2) 9.3 3.5- 10.5 K/L RBC (test code = 789-8) 5.40 4.63- 6.08 M/L MCHC (test code = 786-4) 32.0 32.3- 36.5 GM/DL L Hematocrit (test code = 4544-3) 48.5 % 40.1-51 MCV (test code = 787-2) 89.8 fL 79-92.2 MCH (test code = 785-6) 28.7 pg 25.7-32.2 RDW (test code = 788-0) 12.9 % 11.6-14.4 Platelets (test code = 777-3) 238 150- 450 K/CU MM MPV (test code = 54751-3) 10.8 fL 9.4-12.4 nRBC (test code = 413) 0 0- 0 /100 WBC % Neutros (test code = 429) 73 % % Lymphs (test code = 430) 19 % % Monos (test code = 431) 7 % % Eos (test code = 432) 1 % % Baso (test code = 437) 0 % # Neutros (test code = 670) 6.74 1.78- 5.38 K/L H # Lymphs (test code = 414) 1.79 1.32- 3.57 K/L # Monos (test code = 415) 0.65 0.30- 0.82 K/L # Eos (test code = 416) 0.06 0.04- 0.54 K/L # Baso (test code = 417) 0.02 0.01- 0.08 K/L Immature Granulocytes-Relative 0 % 0-1 (test code = 2801) Lab Interpretation (test code = Abnormal 02345-9) [facility] W/PLT COUNT & AUTO [id number] 13:20:00 Test Item Value Reference Range Interpretation Comments WHITE BLOOD CELL COUNT (BEAKER) 9.3 K/ L 3.5-10.5 (test code = 775) RED BLOOD CELL COUNT (BEAKER) 5.40 M/ L 4.63-6.08 (test code = 761) HEMOGLOBIN (BEAKER) (test code = 15.5 GM/DL 13.7-17.5 410) HEMATOCRIT (BEAKER) (test code = 48.5 % 40.1-51.0 411) MEAN CORPUSCULAR VOLUME (BEAKER) 89.8 fL 79.0-92.2 (test code = 753) MEAN CORPUSCULAR HEMOGLOBIN 28.7 pg 25.7-32.2 (BEAKER) (test code = 751) MEAN CORPUSCULAR HEMOGLOBIN CONC 32.0 GM/DL 32.3-36.5 L (BEAKER) (test code = 752) RED CELL DISTRIBUTION WIDTH 12.9 % 11.6-14.4 (BEAKER) (test code = 412) PLATELET COUNT (BEAKER) (test 238 K/CU MM 150-450 code = 756) MEAN PLATELET VOLUME (BEAKER) 10.8 fL 9.4-12.4 (test code = 754) NUCLEATED RED BLOOD CELLS 0 /100 WBC 0-0 (BEAKER) (test code = 413) NEUTROPHILS RELATIVE PERCENT 73 % (BEAKER) (test code = 429) LYMPHOCYTES RELATIVE PERCENT 19 % (BEAKER) (test code = 430) MONOCYTES RELATIVE PERCENT 7 % (BEAKER) (test code = 431) EOSINOPHILS RELATIVE PERCENT 1 % (BEAKER) (test code = 432) BASOPHILS RELATIVE PERCENT 0 % (BEAKER) (test code = 437) NEUTROPHILS ABSOLUTE COUNT 6.74 K/ L 1.78-5.38 H (BEAKER) (test code = 670) LYMPHOCYTES ABSOLUTE COUNT 1.79 K/ L 1.32-3.57 (BEAKER) (test code = 414) MONOCYTES ABSOLUTE COUNT (BEAKER) 0.65 K/ L 0.30-0.82 (test code = 415) EOSINOPHILS ABSOLUTE COUNT 0.06 K/ L 0.04-0.54 (BEAKER) (test code = 416) BASOPHILS ABSOLUTE COUNT (BEAKER) 0.02 K/ L 0.01-0.08 (test code = 417) IMMATURE GRANULOCYTES-RELATIVE 0 % 0-1 PERCENT (BEAKER) (test code = 2801) Tissue [id number] 13:00:00 Test Item Value Reference Range Interpretation Comments Case Report (test code Surgical Pathology = 104) Report Case: [id number] Authorizing Provider: Miguel Calderon MD Collected: 08/17/2020 08:40 AM Ordering Location: [facility] PERI[facility] Received: 08/17/2020 10:07 AM SERVICES Pathologist: Eboni Renner MD Specimen: Other, Spinal Cord Stimulator; for ID only DIAGNOSIS (test code = i6nvaUIgNQTuw4vpOSVorGV 3220) uZzEwMzNcZnRuYmpcdWMxIH uydsCuGTjtv3ShB7LgPbImG FxhbnNpXGRlZmxhbmcxMDMz NZL9lkTaOKVgHRdnFKKrPDk kKk7afZBwkLcvIlPhFHRbt6 atboTBrhskkIp3a3lpQSNuP rV6mBZfOXtrI3tkhnHwgGLq DKYtJAk5iZ23PIDdrW8twJB sIDtccmVkMFxncmVlbjBcYm w6LHNgF7ugFFKkLPSiU0IwL C7vSJUuUvk6ZBT5NNU5hPnm t3M5pSMwfAXglUtpViIrLhG vYRZCu2MvSUd2wRwsT8MaTY AiUfE6dIIbBIPzVOptANQeW HXjimX9gE05FHxaypY3sUGt a1Zlw71ej090lN5vmVObYJC 1YJDrMVTmnFBpHUHaVCB8PS QjvVSsP5b7MaXhzTIzJ9Y3V yQfyBUfX8A5VmRlcMJxM2G4 SdYqzNBnSUWmeQHyWa2xhMS kyNHcem6jbe04RQA7w3LrdS rpHXJ4LQL2XcTdMx7qiFOtM FZrXZ9aKrRvdXVvYDJmjc69 rYpfHNnysuInxU1qQpDdCHJ auEYeMGDaNI1tdGMbBKYouY 5ucmxjXHBnYnJkcmhlYWRcc QmgcfMhIc5gzPlvPAD6MFld T7dufH1nMkI4FTewZ0yrzM4 hDZh7TEiaxDC7UAKkuG0uFF 2ylsgvt3ziLaBpBP2qirflm 4buGyPfGI5giex4m8qoGpGi OP2jhxqwl2mpDjZyMTzuZYL jetvsNLNib6KkxublHQJuv3 ZtE0TzhAcrD10tfZytK83tI AYbyYtsxZ2upBiyeG0lQmHf ZnMyMFxxbFxwbGFpblxmMFx mczIwXHBsYWluXGYxXGZzMj KqPZ2iR2BHPhXHBDGTYiVqZ 9UUVCMYTHGIFixnPlFFA0KE TDpccGFyICAgLSAgTUVESUN PNKNPDRMBC3AdVh5DVGpNF7 HWJFmYZD5XLIYIO6QYBA6RO K7OQMrxLVQmmkqiJCC4x0fd dGYxXHNzdGUxODAwMFxhbnN tKIPgPimdjjwiIHZxYCJ3gb ClJBDwCDkvZGXaMThvLz9yj TMlwLmlKgKrICDuj8yqpqJB zhtffRx4t0waIRFgQaO5hSX qFTuyF1lxhxWrrIWtNRBxBJ y5lH08FGFceQ9gcNDwSLatx bTqDaU9QGezHNExKmH7FPYf vBDwXTYhF1wzSSGuANszJJD bAIfgeIWqZZX4rKzrr3D3dB VzaGVldHtcZjBcZnMyMiBOb 6ZtHWd5oSqiH0AvVXMaYcC8 bHQgUGFyYWdyYXBoIEZvbnQ 0qO47KFarowY2gZWec5Zls8 2dd371uU4qfFPcZGB9CHCrF TIvtBXxLAHhDUR5CMQmbMXl J2bnKHPkOR2iqpolXXxgFIa jFSJwqVE0GQBfxCNlJ9HpEB WsRAhtVKEegnv0MzYjMw3qy WCyjEohDHfiv9lht6xzmGKh Fht4JBJwAtQvVeciWKyuc0P co8erBVUarn5eMNK5yBSquF khf0O6jOHsVRHfpLRsTBZwG D8abCVmSWVteO8tejnsGZHu YnJkcmhlYWRccGdicmRyZm9 yyYsoGLF4NBbzQ8drzD4pAa P4JNenG5sxcA5lLHe2MNdcP FHcbEE7kxE0XRVqgXMgT4Pq vY2qXUNuUT5odot4f0owKYR 6WCgtVYAgYjN3axR1NNBnqC VjOJXhhHgwDIoid512DSA9D qDmSOJwb0NzR8NqnXzlK21p oXyoZ46wTPBquAocwV0fgIm wsT8fFmUkAeLwEZmuhOgbLJ 3vOJOtA8qceIUbSQNaDRSlJ 0waAoTpsS6hbEzmLApvclFk FSMsCie2ETGbaIJeMWWeDrn 7ZMMqIHZnN88iqtrqAAT0rK 8fq6dql1AqKNxcTYG6MUHxw 38nDZpkelC3JFzbAw1oOIYg Fco0GBquBFI4hO== CPT Code(s) (test code o5jixEXzMSVkrAMaVhUpGLP = 3357) bHKRfm7joHIJlgEOaIxUvOg NcZnRuYmpcdWMxXGRlZmYwe 0tjx040oRGof1usVEIjNbE9 iDAbMAVmoKEuN256w8ltb4e dhtZhcCU7EKCoOZI2LNpzad CxzzJ2HMhlpBEvMcT9UNzlv qUgSXfiwbSjzbFdNku7IIEs A707PFR3mSbbb2bgUHQ3VOV jZBFwXjPpVs3bcMIwQ415EH BqDEZZQYWloAr1RMKqkaDzz eNtyMLUj306L915v1apUFUi soOygXsNigspp6ccX667IZF hcGVydzEyMjQwXHBhcGVyaD F5GEUrQR9udbwmDwUtRG3dx kndRdGwWP9defk4KjFuXD6v cmdiNzIwXGhlYWRlcnkwXGZ ys2CtswutES9aQ7Lic9F9zR 9maXRcZGVmdGFiNzIwXGZvc z8knRLbZRinc8CfMUU5djP1 jVDdvFZcNCGaFB29Tzhon1F iZwqvQUE4KAEjmnBhj1Kac5 hrOlKkawCoP6xuN3OmHFRcY HGnKXUdJqPxwwHqr7Otk9Pv hJOtmUc7r8rlAGEvZKCwlAw uy4vcIGP9QXWoT0Y7bNCxo4 sdFOybQASxlZT4bqghHDvhL ZSrgyC7pckqBBcjUMCtkOV3 ofgvWDnlWVDxLyB4ikixQKi eAEXzYFA2SAvia662TNP3BD xzYmtwYWdlXHBnbmNvbnRcc GduZGVjXHBsYWluXHBsYWlu XGYwXGZzMjRccWxccGxhaW5 wNbZhAwKcERflGX2cBZIcY6 iaiYEbDKQlIGYbF7uiRjIkq F3snHsuZKtokmUpMAz2BgCo XHBhcn0= CLINICAL HISTORY (test o1yrlCTwMDRohLFzZxRsIGH code = 3356) hPSNik2pvLCStjHVbThLwDa NcZnRuYmpcdWMxXGRlZmYwe 7ilu465tVRxa2crRXZdMbK8 zMWqYQQziRHgM352y1ocj5h vsiEghME0IBRpLQN4OKdkks RykjO9RDcfhJWkLqE9RVxfc vEuRUoqoyIfosXjUoq6TWZg O143RWW6eQuua1fzPQI5BLQ gYHUwHlKuPa0ynICjH511NN HkAEEUGFQpsMb9BDDxkkAuj bLsuHNUu874D729e6lqBZHf ujEygPoClkcim3yhV691LEY hcGVydzEyMjQwXHBhcGVyaD Z2HBUjYA0ijmtyXdDgDV5yy bdjUlKwSC8vqnw7EoPoYV3e cmdiNzIwXGhlYWRlcnkwXGZ hr4VrztuqEZ4pO8Jii6I5vS 9maXRcZGVmdGFiNzIwXGZvc i9vwWVzNOctd6WhLLP8ugJ7 fOUkoMRqTOTqEI23Jgylb4N dXjgyXPH6VKTcgdPap8Wvh8 maEvLuexAeD9zdQ0HsJJYlO NIcSMLlPfSdicQdi2Ioh1Vl rSBfxSn2q2qkCLEhDXXviUt bo3wkVXL5URGwS2B2eMUef7 xdMOzuUQXmrEI8cynoQVraQ ONisvW3utoqLUkyOSDyyNN5 dxyiSOgpRCCwQwE4vnaoBEz kNOQrDBN0BHvpk369YQN6SZ xzYmtwYWdlXHBnbmNvbnRcc GduZGVjXHBsYWluXHBsYWlu XGYwXGZzMjRccWxccGxhaW5 xShHsYpInAIwaCI2zVMBwL2 btlLRxNMMyYKLhR2mzAiSof P9irZpkORldquMcAADwWC0q ZDJnBKfmp5ZcabygGC9gzPT 6psQ0bG7yME4gQVWpqY7xwV Vkx5BhSVZ2iY43pSN3u9IvF JtndJOzJZqjYH0zg6HhgEGi LiBccGFyfQ== SPECIMEN SOURCE (test n3midKHpJZHdpAFsDkTwUCF code = 3377) sVMAga8tmQWEccCKcGhZjTd NcZnRuYmpcdWMxXGRlZmYwe 9cmp424pVEhp1tjVYZpNlI6 uQUcHXGmqNRnG539t9ndt9l brfQffAB9LBMxRNY1OZbuxn XsmuO0UCfccHQyQzC2RVrao kOuPEdwibOeusIdVbf3CKUz Z358BIB2sIwel6lwILD0ERE aCMKuArRyGu2ybKSdC410XE AwCLJHRPOktBq1YZRbdcNzb uTvdDKTc093T862d0xvJFWd jmHvtRbMwjkjm5deZ924PKR hcGVydzEyMjQwXHBhcGVyaD F2EHFoHF6rzeisFtOdZY1tl zeeDuWqUV9hwid9SbFdUE6k cmdiNzIwXGhlYWRlcnkwXGZ jy6IcgivrQL2vW7Qfb8N7vD 9maXRcZGVmdGFiNzIwXGZvc c8bpFLkEDdid8ApGVV0viS6 aPWzcEXyEWJwAQ32Xiuzy9G tLaceZOM0WKFykmIxn3Jsd7 wpXyCyzyJgN5doI0VbUNMeL FDmDGKjGoFhhxJrk6Mna6Ol fGMraXz7y9ddIPZzQQEaqCs cg3saOVY3YHAsA1T1lOPag6 erEGbePZEcqDD5gsgiQXfmF NFnszE8kckaMMrhWCLziIK7 rgkkMOgdHSJhLkZ0byjtFPa jEORqNGS1CEspx804PAV0HP xzYmtwYWdlXHBnbmNvbnRcc GduZGVjXHBsYWluXHBsYWlu XGYwXGZzMjRccWxccGxhaW5 pOcDsVeGsLRurRM0pXUGuW2 zleDQrCOIhCVQlE8sxMmBvy L3mkEvqDEfysnTxSG26vOGu XHBhcn0= GROSS DESCRIPTION w0rfoAThQZPstGJbAeAjRXB (test code = 3366) hVCOuy1stGNUubNOlLoIwLx NcZnRuYmpcdWMxXGRlZmYwe 3znn471fSTob4kkRAEeIuL5 oWIqUSMqpPHsQ088VWQvJWu xv7jlr8JqLBFckKRva9L9KW ELattepBl0yNbhI69gn7I0I cpzY1eaKTNbPVhfCVWiKJma aXTxJNC2WUQzYAA2SZhmpaX qwgA6IMyakCQdNxC6KKo7y5 grzFbfQMLmZXB4e5liWSisq jFzNH8zfc1glIo1c3joplLt SAQeMOSrkJDSQPEzC1LivMg sOv3tcWh0nQasLrawCTM8Cu j8YW9oed12ufb0eUxeFXOuu tkwCgE9GNpoCWKsexpbQAp3 MFxtYXJnbDcyMFxtYXJncjc yMFxtYXJndDcyMFxtYXJnYj gwKRbmYXEeYXS8KAyrh488E TW1XToni1zzd6ucaWOrFhm6 QMNwLrNoFmqoJLikh8Lav8z cGXLjlv2fUFH3bDAirIbbc9 Z4xNHmZXYghMTfeqWdFRBtT dA2VKmvRW8ykp48YEYfFKZ7 gl4hbEPmyBpwelNavPBkXTm fI2HxDAAra359XFQoB3MeTO Apm7A4bxUxQyBvMOGuiBR7u hJ3FDLrLUd3yAEezvS9pgZi jOPgN0nfsV93YbDfqTBeN6T xdY89MaCjiUXlP3AftJ98Ih XikQKsJ7AbqP98SkAixAEbB VXeoTEmTe2ciMYylQZpg7Wz kUFyKXutY65yo689HGZlquY aC3iysCPdmobfhCHoatjyOY xmczIwXHFsXHBsYWluXGYwX HVdPuEapMrmhH7oCtLpVzKn MCBSZWNlaXZlZCBmcmVzaCB sYWJlbGVkIHdpdGggdGhlIH BcyZmxbfZjmpPxZB5uRHPyE 8Exa1Las05ncnPqFhHfIJWh OWAzu3OaojEmMROzejJzd3H kmIObDAOesrMazZRuDPB0Ps XptBK5CnCsvDFrUzddW98tl HE2OXtsxXUoQ7AafC5zeUOe JVUzYmXhCWBdg8TfHMryn9r cB2nbyAEkX25bv8epzHNrcI A8iAKuXNiadMdlGTJsNWIcX Eqxx1BexWGdGYKepjzrNY2d ZBEiBD0vEJtaBM70DBcnXD2 7BZXrDROrP4XtO9K8LAQqKx WrRDQjgTtkZcTqrmA4FDQ7E eevNc5qUSkeQNAlcXero1rb ZyBpbnNjcmlwdGlvbiBpcyB pZGVudGlmaWVkOlxwYXJccG KcBF3bISWxt89jV7wyTWYvD zTziS2jDXCEOC83ERXghDYc EFX9qyMIM0RqAG2WRVprOXA qR55jJk8SRlSlEwVuIFkmGB UnyTNjWOZwN0Rov8CaxLvte M9kyhMvaSZbjwL7KMnvwo2y Dx4lp2MnnYxkqmWwOESxKYM 0Yg0njZJwQH5wMCdkwjHySH YvWXnjOXGryfRnfz1bzkKjf TGjtG6qhGwiczYgmba3AdSz UEEvcGwgIFxwYXJ9 MICROSCOPIC q6sefIZbMTPebVFjCcNsRDK DESCRIPTION (test code pFRQop6jaGPUxiSJkGcCeBl = 3371) NcZnRuYmpcdWMxXGRlZmYwe 5xku495lEJdy5xuQIObAkO3 uEIcRSXklVHmG279t3hhk5u dryQuaSF2GIXgLPD0GZtwyb AfdsB7YOeskCWiUtF6RQagx iGvCUptiaUompMaEnt9NPBp X646EWW2nDmij0odQLE7HEM hYLEjEoJhSr4vmVWiO677KE UvWOTZGDEtbLd1NGDfdgTvj yIuvLSTj832B193c5laWBAa owFxbXgIdovkk8esZ568FAZ hcGVydzEyMjQwXHBhcGVyaD Q2EBOhOG9esdokRbEvOD2bv begAgXgJQ7yync9KtNfMN4d cmdiNzIwXGhlYWRlcnkwXGZ ko6QofwzhKM5bP7Eya7F6tV 9maXRcZGVmdGFiNzIwXGZvc m7jtLQsZWfed8TaWIH9nuC7 vDMmnUEyZQEmYA39Dansu1J xZaibSIP5ZIFuxhYzt3Yil8 dyIsQmwtYhF7wgP7DqVFFpO MIfBCEqEsYcgnVhy0Dxm8Jc tFThsHb7q6bdDBViHAMgsTu sz4dfSSL1LASmS5R9uUJgy7 fcVLvgXRVkaIX3gaunLUvkE DUwupY7ldtzECdpNQEzyMT9 lvacOYzfLECpXqX9djmwTEb jZFSrMVX8TVarj896HYY1ZW xzYmtwYWdlXHBnbmNvbnRcc GduZGVjXHBsYWluXHBsYWlu XGYwXGZzMjRccWxccGxhaW5 xSuLuPgCrPCxuSX1cCTFfO6 ujdYSzCVPqPKTyE1moSyInd A7gaLreZTslfoRuLS2NBAKw cn0= [facility] [id number] 13:00:00Surgical Pathology Report Case: [id number] Authorizing Provider: Miguel Calderon MD Collected: 08/17/2020 08:40 AM Ordering Location: [facility] Received: 08/17/2020 10:07 AM SERVICES Pathologist: Eboni Renner MD Specimen: Other, Spinal Cord Stimulator; for ID only A. SPINAL CORD STIMULATOR, REMOVAL: - SALES FLOOR MANAGER FOR GROSS IDENTIFICATION ONLY Signing Pathologist Direct Phone Line: [phone] signed by Eboni Renner MD on 08/17/2020 at 1:00 [id number] diagnosis: Malfunction of spinal cord stimulator, initial encounter. OtherReceived fresh labeled with the patient's name, accession number and "spinal cord stimulator" is a 5.2 x 5.2 x 0.8 cm metallic duran-piece of hardware, which is consistent with with a neural stimulator, and a 8.0 x 4.5 x 0 .4 cm aggregate of metallic duran tubing. The following inscription is identified:[facility] MRISN [id number] gross photograph is taken. No sections are submitted. This case is forgross examination only. PA/pl NAFL, FLUORO, NON-SPECIFIC, UP TO 1 [id number] 09:16:00Reason for exam:->Spinal Cord Stimulator RevisionFluoroscopic unit utilized for a procedure performed in the OR. No interpretation was requested. Refer to the operative report for findings. Refer to PACS for patient radiation dose information.SARS-CoV2/RT-PCR ([facility])2020-08-13 22:54:00 Test Item Value Reference Range Interpretation Comments SARS-COV2/RT-PCR Negative Not Detected, (test code = Negative, See 32394-2) external report for linked test SARS-COV-2 [facility] PERFORMING LAB (test code = 27989-9) ENE (test code = Negative result for [...] of the Act. Fact Sheet for Healthcare Providers:https://www.RooT/sites/default/f amy/product/documents/F act_Sheet_HC_Providers_L onz_XXOY-HvD-2.pdf Fact Sheet for Healthcare Patients:https://www.ICEdot/sites/default/fi les/product/documents/Fa ct_Sheet_Patients_Lyra_S ARS-CoV-2.pdf Performing Laboratory:[facility] [place], [place] [address]keke [place], [place] [address] [place], [place] [address]ARS-COV2/RT-PCR ([facility])2020-08-13 22:54:00 Test Item Value Reference Range Interpretation Comments SARS-COV2/RT-PCR (test Negative Not Detected, Negative, code = 7761693) See external report for linked test SARS-COV-2 PERFORMING LAB [facility] (test code = 3729044) Negative result for this test determines that [...] individuals suspected of COVID-19 by their healthcare provider.This test [...] 564(g) of the Act.Fact Sheet for Healthcare Providers:https://www.ZUGGI.MyWishBoard/sites/default/files/product/documents/Fact_Shee z_YQ_Nxwefqplv_Dukt_ZONH-EiZ-9.pdfFact Sheet for Healthcare Patients:https://www.ZUGGI.MyWishBoard/sites/default/files/product/ documents/Eeuw_Ygwos_Dnkmooar_Hxpp_XEUM-SrI-8.pdfPerforming Laboratory:[facility], [place] [address]HFA, CHEST, 2 VIEWS 2020-08-12 16:53:00Reason for exam:->Malfunction [...] Meredith Nolen MDReport Verified Date/Time: 08/12/2020 16:53:49 URINALYSIS W/ REFLEX URINE [id number] 15:52:00 Test Item Value Reference Range Interpretation [...] = 516) SOURCE(BEAKER) (test code = 2795) Fire Services Plumber ID - [auto]Fire Services Plumber ID - techBASIC METABOLIC [id number] 15:50:00 Test Item Value Reference Range Interpretation [...] NOT APPLICABLE FOR DIALYSIS PATIJOSÉ MIGUEL WING. Fire Services Plumber ID - [id number] 15:49:00 Test Item Value Reference Range Interpretation Comments PTT (test code = 57642-6) 33.7 22.5- 36.0 seconds Lab Interpretation (test code = Normal 40790-1) [facility]00 Test Item Value Reference Range Interpretation Comments PARTIAL THROMBOPLASTIN TIME 33.7 seconds 22.5-36.0 (BEAKER) (test code = 760) Prothrombin time/[id number] 15:48:00 Test Item Value Reference Range Interpretation [...] valves. Lab Interpretation Normal (test code = 68603-1) [facility][id number] 15:48:00 Test Item Value Reference Range Interpretation [...] is2.5-3.5 for patients wiht mechanical heart valves.CBC W/PLT COUNT & AUTO [id number] 15:38:00 Test Item Value Reference Range Interpretation [...]
--- NOTE | 2020-10-07 15:13 | EDPHYS ---
Physician Documentation [facility] Name: Harris Alanis Age: 40 yrs Sex: Male : 1980 Arrival Date: 10/07/2020 Time: 11:46 Bed 26 Private MD: ED Physician Hussein Prince HPI: 10/07 14:54 This 40 yrs old Black Male presents to ER via Ambulatory with complaints of Post jr8 Surgical Pain. 14:54 Patient stated that he had back surgery this past Saturday to revise his spinal jr8 stimulator. Was given [place] for pain but cannot get the pain to settle down. Denies fever or chills . Onset: The symptoms/episode began/occurred gradually, 2 day(s) ago. Severity of symptoms: At their worst the symptoms were moderate in the emergency department the symptoms are unchanged. The patient has not experienced similar symptoms in the past. The patient has not recently seen a physician. Historical: - Allergies: 12:19 Claritin; jd3 - PMHx: 12:19 Migraines; nerve pain; chroinc back pain; Anxiety; Diabetes - NIDDM; jd3 - PSHx: 12:19 Spinal cord stimulator; jd3 - Immunization history:: Adult Immunizations up to date. - Social history:: Smoking status: Patient denies any tobacco usage or history of. ROS: 14:54 Eyes: Negative for injury, pain, redness, and discharge, ENT: Negative for injury, jr8 pain, and discharge, Neck: Negative for injury, pain, and swelling, Cardiovascular: Negative for chest pain, palpitations, and edema, Respiratory: Negative for shortness of breath, cough, wheezing, and pleuritic chest pain, Abdomen/GI: Negative for abdominal pain, nausea, vomiting, diarrhea, and constipation, MS/Extremity: Negative for injury and deformity, Skin: Negative for injury, rash, and discoloration, Neuro: Negative for headache, weakness, numbness, tingling, and seizure. 14:54 Back: Positive for decreased range of motion, pain at rest, pain with movement, Negative for radiated pain. Exam: 14:54 Eyes: Pupils equal round and reactive to light, extra-ocular motions intact. Lids and jr8 lashes normal. Conjunctiva and sclera are non-icteric and not injected. Cornea within normal limits. Periorbital areas with no swelling, redness, or edema. ENT: Nares patent. No nasal discharge, no septal abnormalities noted. Tympanic membranes are normal and external auditory canals are clear. Oropharynx with no redness, swelling, or masses, exudates, or evidence of obstruction, uvula midline. Mucous membranes moist. Neck: Trachea midline, no thyromegaly or masses palpated, and no cervical lymphadenopathy. Supple, full range of motion without nuchal rigidity, or vertebral point tenderness. No Meningismus. Cardiovascular: Regular rate and rhythm with a normal S1 and S2. No gallops, murmurs, or rubs. Normal PMI, no JVD. No pulse deficits. Respiratory: Lungs have equal breath sounds bilaterally, clear to auscultation and percussion. No rales, rhonchi or wheezes noted. No increased work of breathing, no retractions or nasal flaring. Abdomen/GI: Soft, non-tender, with normal bowel sounds. No distension or tympany. No guarding or rebound. No evidence of tenderness throughout. Skin: Warm, dry with normal turgor. Normal color with no rashes, no lesions, and no evidence of cellulitis. MS/ Extremity: Pulses equal, no cyanosis. Neurovascular intact. Full, normal range of motion. Neuro: Awake and alert, GCS 15, oriented to person, place, time, and situation. Cranial nerves II-XII grossly intact. Motor strength 5/5 in all extremities. Sensory grossly intact. Cerebellar exam normal. Normal gait. 14:54 Back: pain, that is moderate, ROM is painful, with all movement, normal spinal alignment noted, CVA tenderness, is absent. Vital Signs: 12:19 BP 124 / 90; Pulse 97; Resp 17 S; Temp 98.8(TE); Pulse Ox 99% on R/A; Weight 88.45 kg jd3 (R); Height 6 ft. 0 in. (182.88 cm) (R); Pain 10/10; 12:19 Body Mass Index 26.45 (88.45 kg, 182.88 cm) jd3 MDM: 14:33 Patient medically screened. jr8 15:10 Data reviewed: vital signs, nurses notes, and as a result, I will discharge patient. jr8 Data interpreted: Pulse oximetry: on room air is 99 %. Interpretation: normal. Counseling: I had a detailed discussion with the patient and/or guardian regarding: the historical points, exam findings, and any diagnostic results supporting the discharge/admit diagnosis, the need for outpatient follow up, a family practitioner, to return to the emergency department if symptoms worsen or persist or if there are any questions or concerns that arise at home. Administered Medications: 15:10 Drug: Dilaudid 2 mg Route: IM; Site: left deltoid; iw Disposition: 10/08 08:21 Co-signature as Attending Physician, Hussein Prince MD I agree with the assessment and arun plan of care. Disposition: 10/07/20 15:13 Discharged to Home. Impression: Post surgical pain . - Condition is Stable. - Discharge Instructions: Back Pain, Adult, Chronic Pain. - Medication Reconciliation Form, Thank You Letter, Antibiotic Education, Prescription Opioid Use form. - Follow up: Private Physician; When: 5 - 6 days; Reason: Recheck today's complaints, Continuance of care, Re-evaluation by your physician. - Problem is new. - Symptoms have improved. Signatures: Hussein Prince MD MD cha Williams, Irene, RN RN Aman Wilkins PA PA jr8 Ellis Block RN RN jd3 Corrections: (The following items were deleted from the chart) 10/07 15:24 15:13 10/07/2020 15:13 Discharged to Home. Impression: Post surgical pain . Condition iw is Stable. Forms are Medication Reconciliation Form, Thank You Letter, Antibiotic Education, Prescription Opioid Use. Follow up: Private Physician; When: 5 - 6 days; Reason: Recheck today's complaints, Continuance of care, Re-evaluation by your physician. Problem is new. Symptoms have improved. jr8
--- NOTE | 2020-10-07 15:13 | ER ---
Nurse's Notes [facility] Name: Harris Alanis Age: 40 yrs Sex: Male : 1980 Arrival Date: 10/07/2020 Time: 11:46 Bed 26 Private MD: Diagnosis: Post surgical pain Presentation: 10/07 12:16 Chief complaint: Patient states: "I just surgery on Saturday and they had to go into [facility] my spine and shave part of it off and they were supposed to keep me for pain control, but someone dropped the ball. my son said I blacked out from the pain and that why i came today.". Coronavirus screen: At this time, the client does not indicate any symptoms associated with coronavirus-19. Ebola Screen: Patient negative for fever greater than or equal to 101.5 degrees Fahrenheit, and additional compatible Ebola Virus Disease symptoms. Initial Sepsis Screen: Does the patient meet any 2 criteria? No. Patient's initial sepsis screen is negative. Does the patient have a suspected source of infection? No. Patient's initial sepsis screen is negative. Risk Assessment: Do you want to hurt yourself or someone else? Patient reports no desire to harm self or others. Note last dose of hydrocodone was this AM. Note surgery done in [facility]. Onset of symptoms was October 04, 2020. 12:16 Method Of Arrival: Ambulatory [facility] 12:16 Acuity: SHANIQUE 4 jd3 Triage Assessment: 15:23 General: Appears in no apparent distress. Behavior is calm, cooperative. iw Historical: - Allergies: 12:19 Claritin; jd3 - PMHx: 12:19 Migraines; nerve pain; chroinc back pain; Anxiety; Diabetes - NIDDM; jd3 - PSHx: 12:19 Spinal cord stimulator; jd3 - Immunization history:: Adult Immunizations up to date. - Social history:: Smoking status: Patient denies any tobacco usage or history of. Screenin:24 Abuse screen: Denies threats or abuse. Denies injuries from another. Nutritional iw screening: No deficits noted. Tuberculosis screening: No symptoms or risk factors identified. Fall Risk None identified. Assessment: 14:35 General: Appears in no apparent distress. Behavior is calm, cooperative. Pain: iw Complains of pain in back Pain currently is 10 out of 10 on a pain scale. Neuro: Level of Consciousness is awake, alert, obeys commands, Oriented to person, place, time, situation, Moves all extremities. Full function. Cardiovascular: Patient's skin is warm and dry. Respiratory: Respiratory effort is even, unlabored, Respiratory pattern is regular, symmetrical. GI: Abdomen is flat, non-distended. Derm: Skin is intact, is healthy with good turgor. Musculoskeletal: Range of motion: Reports pain in back. Vital Signs: 12:19 BP 124 / 90; Pulse 97; Resp 17 S; Temp 98.8(TE); Pulse Ox 99% on R/A; Weight 88.45 kg jd3 (R); Height 6 ft. 0 in. (182.88 cm) (R); Pain 10/10; 12:19 Body Mass Index 26.45 (88.45 kg, 182.88 cm) jd3 ED Course: 11:46 Patient arrived in ED. ag5 12:18 Triage completed. jd3 12:21 Arm band placed on. jd3 14:32 Tanna Dailey, FLAVIA is Primary Nurse. iw 14:33 Aman Cruz PA is PHCP. jr8 14:33 Hussein Prince MD is Attending Physician. jr8 14:35 Patient has correct armband on for positive identification. iw 15:23 No provider procedures requiring assistance completed. Patient did not have IV access iw during this emergency room visit. Administered Medications: 15:10 Drug: Dilaudid 2 mg Route: IM; Site: left deltoid; iw Outcome: 15:13 Discharge ordered by . jr8 15:23 Discharged to home ambulatory, with family. iw 15:23 Condition: good 15:23 Discharge instructions given to patient, Instructed on discharge instructions, follow up and referral plans. Demonstrated understanding of instructions, follow-up care. 15:24 Patient left the ED. iw Signatures: Tanna Dailey RN RN iw Aman Cruz PA PA jr8 Ellis Block RN RN jAubree Zelaya ag5 Corrections: (The following items were deleted from the chart) 12:35 12:16 Acuity: SHANIQUE 3 jd3 j
[2020-10-07] MEDS ORDERED: HYDROMORPHONE HCL 2 MG/ML inj ONE (15:19)
[2020-10-07 16:42] VITALS: BP 124/90; TEMP 98.8; O2SAT 99
== END 2020-10-07 15:24 | disposition home or self-care (01) ==
LOC: ER 11:45
DX: G89.18 Other acute postprocedural pain (principal); Z88.8 Allergy status to other drugs, medicaments and biological substances
CPT/HCPCS: 96372; 99283; J1170

== ENCOUNTER 2021-04-03 23:27 | Emergency (ER) | payer OTHER ==
--- OUTSIDE RECORDS SUMMARY | 2021-04-03 23:31 | XMS REPORT | Continuity of Care Document ---
:1980 Author Organization [facility] t Address [address] [place] [address] [address]. [address] [place] [address] Care Team Providers Name Role Phone Pcp Primary Care Physician Unavailable Campbell Esteban Attending Clinician Jayden Purdy MD Attending Clinician HERON Attending Clinician Unavailable Heron DEMPSEY Attending Clinician Madalyn Mcgraw MD Attending Clinician Niko Hui MD Attending Clinician Pcp Attending Clinician Unavailable Ramona DEMPSEY Attending Clinician William BONDS Attending Clinician Baudilio Fiore MD Attending Clinician HERON Admitting Clinician Unavailable Payers Payer Name Policy Type Policy Effective Date Expiration Date Sour ce Number MEDICAID - [id number] 2020 [facility] MEDICAID MGD 00:00:00 [facility] [id number]/1/ 2021-PresentMedic aid Contracted Problems Condition Condition Condition Status Onset Resolution Last Treating Co mments Source Name Details Category Date Date Treatment Clinician Date Chronic Chronic Disease Active [facility] back [facility] - pain with pain with 00:00: Medi lino sciatica, sciatica, 00 Cent er sciatica sciatica laterality laterality unspecifie unspecifie d, d, unspecifie unspecifie d back d back pain pain laterality laterality Spinal Spinal Disease Active 2019-11 [facility] [address] cord cord -11 [facility] - stimulator stimulator 00:00: Me dical status status 00 [place] Malfunctio Malfunctio Disease Active [facility] of n of 08-17 [facility] - spinal spinal 00:00: Medical cord cord 00 Center stimulator stimulator Allergies, Adverse Reactions, Alerts Allergy Allergy Status Severity Reaction(s) Onset Inactive Treating Comm ents Source Name Type Date Date Clinician Adhesive Drug Active Itching 2019-11 "breaks [facility] T[facility] Intolera 12-05 out", [facility] - nce 00:00: blisters Medical [address] [place] [address] Loratadi Propensi Active Other (See anxiety [facility] ne ty to Comments) 04-30 [facility] - adverse 00:00: Medical reaction 00 Center s Social History Social Habit Start Date Stop Date Quantity Comments Source History SDOH [facility] - Alcohol Std Drinks Medica l Center [facility] - [facility] Binge Medical [facility] ter Sex Assigned At [facility] Tobacco use and 2021-01-23 2021-01-23 Current user [facility] - exposure 00:00:00 00:00:00 [facility] Alcohol intake 2021-01-23 2021-01-23 [facility]00 non-drinker of Medical Ce nter alcohol (finding) History SDOH 2020-08-03 2020-08-[address] k[facility] - Alcohol Frequency 00:00:00 00:00:00 [facility] Smoking Status Start Date Stop Date Source [facility] [place] Medications Ordered Filled Start Stop Current Ordering Indication Dosage Frequency Signature Comments Components Source Medication Medication Date Date Medication? Clinician (SIG) Name Name HYDROcodone Yes 2{tbl} Take [address] -acetaminop 3- tablets by Yancy kes - hen (NORCO 11:08: mouth Medica l 5-325) 25 every 6 Center 5-325 mg (six) per tablet hours as needed for Pain . butalbit/ac Yes Take by [facility] etamin/caff 3-01 mouth. [facility] - /codeine 11:08: Medical (BUTALBITAL 25 Center -ACETAMINOP -CAF-COD ORAL) tiZANidine Yes 4mg QD Take [address] (ZANAFLEX) 3-01 by mouth [facility] - 4 MG tablet 11:08: nightly. Me dical 25 [place] tiZANidine 2020- No 4mg QD Take [address] (ZANAFLEX) 2-15 02-15 by mouth Luke s - 4 MG tablet 08:29: 08:29 daily. Med ical 42 :41 [place] ARIPiprazol 2020- No 10mg QD Take [address] e (ABILIFY) 01-05-11 by mouth [place] es - 10 MG 09:19: 00:00 daily. Medical tablet 14 :00 [place] budesonide 2020- No .25mg Q.5D Take 0.[address] (PULMICORT) - 02-11 mg by [facility] - 0.25 mg/2 09:18: 00:00 nebulizati M edical mL 57 :00 on 2 (two) Center nebulizer times solution daily. diazePAM 2020- No 10mg Take [address] (VALIUM) 5 -09 26-11 by mouth Luke s - MG tablet 09:18: 00:00 every 6 Medi lino 41 :00 (six) Center hours as needed for Anxiety. ondansetron 2020- No 4mg Take [address] [address] (ZOFRAN) 4 -09 26-11 by mouth 2 Yancy kes - MG tablet 09:18: 00:00 (two) Medica l 35 :00 times Center daily as needed for Nausea. venlafaxine 2020- No 150mg QD Take [address] (EFFEXOR-XR - 02-11 mg by [facility] - ) 150 MG 24 09:18: 00:00 mouth Medi lino hr capsule 28 :00 daily. [place] zolpidem No 12.5mg Take 12.[address] (AMBIEN CR) 2-11 02-11 mg by Aimee - 12.5 MG CR 09:18: 00:00 mouth Medic al tablet 22 :00 every Center night as needed for Insomnia. acetaminoph 2019-11- No 1{tbl} Take [address] en-codeine 1-11 11-21 tablet by Delmar hernandez - (TYLENOL 00:00: 23:59 mouth Medical #4) 300-60 00 :00 every 4 Center mg per (four) tablet hours as needed for Pain for up to 10 days. Max Daily Amount: 6 tablets acetaminoph No 1{tbl} Take 1-[address] en-codeine 9- 10-03 tablets by Yancy Gannon (TYLENOL-CO 00:00: 23:59 mouth Medi lino DEINE #3) 00 :00 every 4 Center 300-30 mg (four) per tablet hours as needed for Pain for up to 10 days. Max Daily Amount: 12 tablets HYDROcodone No 1{tbl} Take [address] -acetaminop - 10-03 tablet by Yancy lopez (NORCO 00:00: 23:59 mouth Medic al 10-325) 00 :00 every 6 Center 10-325 mg (six) per tablet hours as needed for Pain for up to 10 days. Max Daily Amount: 4 tablets Vital Signs Vital Name Observation Time Observation Value Comments Source Systolic blood 2021-01-23 10:45:00 114 mm[Hg] [facility] Diastolic blood 2021-01-23 10:45:00 87 mm[Hg] [facility] Heart rate 2021-01-23 10:45:00 85 /min [facility] Body temperature 2021-01-23 10:45:00 36.33 Gabriela [facility] Respiratory rate 2021-01-23 10:45:00 12 /min [facility] Oxygen saturation in 2021-01-23 10:45:00 99 /min [facility] Arterial blood by Medical nter Pulse oximetry Body height 2021-01-23 07:30:00 182.9 cm [facility] Body weight 2021-01-23 07:30:00 83.6 kg [facility] BMI 2021-01-23 07:30:00 25.00 kg/m2 [facility] Procedures Procedure Date / Time Performing Clinician Source Performed [place] FLUORO NON-SPECIFIC UP 2021-01-23 08:55:00 Carlito [facility] 1 HOUR [facility] NERVE BLOCK,LUMBAR FACET 2021-01-23 07:59:00 Carlito [facility] PROCEDURE W/ C-ARM 2021-01-23 07:59:00 Carlito [facility] [place] FLUORO NON-SPECIFIC UP 2020-10-05 16:30:00 [place] [facility] 1 [facility] TISSUE EXAM 2020-10-05 16:25[facility] 2020-10-05 14:59:[address] [facility] PROCEDURE W/ C-ARM 2020-10-05 14:59:00 Heron [facility] XR CHEST 2 VIEWS 2020-09-19 13:15:00 [facility] ECG 12-LEAD 2020-09-19 12:53:30 [facility] BASIC METABOLIC PANEL (7) 2020-09-19 12:49:00 Heron, [place] [facility] CBC W/PLT COUNT & AUTO 2020-09-19 12:49:00 HeronMiguel [facility] PT/APTT 2020-09-19 12:49:00 [facility] URINALYSIS W/ REFLEX URINE 2020-09-19 12:49:00 Odilon Calderon [facility] TYPE AND SCREEN, AUTOMATED 2020-09-19 12:49:00 Odilon Calderon [facility] RHYTHM STRIP - SCAN 2020-08-19 08:40:25 Provider, Default [facility] [place] FLU[place] NON-SPECIFIC UP 2020-08-17 09:16:00 Cornell Calderon [facility] TO 1 HOUR [facility] TISSUE EXAM 2020-08-17 08:40:00 Heron [facility] REVISION/ 2020-08-17 07:41:00 Miguel Calderon [facility] - REPLACEMENT,SPINAL Medical Cente r NEUROSTIMULATOR LEAD(S) PROCEDURE W/ C-ARM 2020-08-17 07:41:00 Heron Miguel [facility] TRANSFUSION SERVICE REPORT 2020-08-13 18:04:04 Provider, Default [facility] XR CHEST 2 VIEWS 2020-08-12 15:37:00 Heron, [facility] ECG 12-LEAD 2020-08-12 15:19:21 Heron, [facility] BASIC METABOLIC PANEL (7) 2020-08-12 15:14:00 Heron, [facility] grady [facility] CBC W/PLT COUNT & AUTO 2020-08-12 15:14:00 Miguel Calderon [facility] URINALYSIS W/ REFLEX URINE 2020-08-12 15:14:00 Odilon Calderon [facility] APTT 2020-08-12 15:14:00 Heron, [facility] PROTHROMBIN TIME/INR 2020-08-12 15:14:00 [facility] TYPE AND SCREEN, AUTOMATED 2020-08-12 15:14:00 Odilon Calderon [facility] SARS-COV2/RT-PCR ([facility] & 2020-08-12 15:14:00 Heron [facility] REF LABS) Medical [place] Plan of Care Planned Activity Planned Date Details Comments Source Future Scheduled 2021-07-26 INFLUENZA VACCINE [facility] - Test 00:00:00 (Season Ended) [code Medical Center = INFLUENZA VACCINE (Season Ended)] Future Scheduled 2020-11-[address] [facility] - Test 00:00:00 (12+) [code = Medical Center DEPRESSION SCREENING (12+)] Future Scheduled [address] [facility] - Test 00:00:00 (procedure) [code = Medical Center [id number]] Future Scheduled 2001 DTAP/TDAP/TD VACCINES [facility] - Test 00:00:00 (1 - Tdap) [code = Medical C enter DTAP/TDAP/TD VACCINES (1 - Tdap)] Future Scheduled 2000 HEPATITIS C SCREENING [facility] - Test 00:00:00 [code = HEPATITIS C Medical Center SCREENING] Encounters Start End Encounter Admission Attending Care Care Encounter Source Date/Time Date/Time Type Type Clinicians Facility Department ID 2020-02-19 2020-02-19 Emergency [facility] [id number] 20:56:33 21:37:00 Fabien Gómez [id number] [facility] [id number] [facility] [id number] 2020-02-13 2020-02-13 Emergency [facility] [id number] 05:38:10 06:52:00 Jayden Gómez [id number] [facility] [id number] [facility] [id number] Results Test Description Test Time Test Comments Results Result [facility] e Comments [place], FLUORO, 2021-01-23 Reason for NON-SPECIFIC, UP 08:55:00 exam:->pain TO 1 HOUR [facility] 1980 Sex: M *Fluoroscopic unit utilized for a procedure performed in the OR. No interpretation was requested. Refer to the operative report for findings. Refer to PACS for patient radiation dose information. [place] fluoro 2021-01-23 Interface, External [facility] non-specific up 08:55:00 Ris In - 01/23/2021 - Medical to 1 hour 8:57 AM Center CSTFluoroscopic unit utilized for a procedure performed in the OR. No interpretation was requested. Refer to the operative report for findings. Refer to PACS for patient radiation dose information. Tissue Exam 2020-10-10 15:56:00 Test Item Value Reference Range Interpretation Comme nts Case Report (test code = 104) Surgical Pathology Report Case: [id number] Authorizing Provider: Miguel Calderon MD Collected: 10/05/2020 04:25 PM Ordering Location: [facility] PER[facility] Received: 10/06/2020 09:12 AM SERVICES Pathologist: Darci Starks MD Specimen: Explant, Electrodes DIAGNOSIS (test code = 3220) r2shwJUvPGKmi5mwDWGdkHQeCjObNsVkEtOiUi pc dWMxIHtccnRmMVxlcGljOTIwMFxhbnNpXHNwbHRw R0SehjxpPZbqGH8yVT1qnJqlvQOjxZKgHILcJfUj q2zql747wINib0juHQXImxsrnYc6tVkoM94bk1E7 UwapW81tzSMaLSthbHJvadfowjFsVJKNPtBmEDNV RNvEEDgcA78NJVQRSNvOSLwMEG5RXBGWZHPCKx6C WAqpKkUOF9VAFGixkLIdYPPSQC6KJXSMI1NFOILS RN1ZBOGFP6LgLHfJA3UZR8BFBYiVEu6GVzQYNJJY Ek7NLSOrY21DUNurARLctz88QNM2QnJvk7E6DBX0 HONtNQXko5tzVCCyoPEkSzObUaOcNsQsUfziySSr PZPcTyOgc2byf195qNYmx0foJWRwDeP1fUEgRUXh dRSnM829WIWvBEafr0wwg8PtQRQjyECym2D5TKUD dzsskOf7bWuyO64po6V9PfrbK5xyLQBnYVCwX5Nt KI9hDGGyMtg2LXK9PCC5ZUHzQPCoK7GrTM5xYSDq nABlXJz2h8rjwHeiUHFaOQC6k2laZZqnfdLxRS3q lb8wwVe0g9xoabCeDUUwHSHgaTRZQAZkE9GliBuz Ts2sjVm8iTxsJtplTAD2Ptx1NA9abt55dkp9dPho OPFwjodxNfK7BZhwTDCgyiyzXLw1AYtyFGHctWO9 HVDmpDTpP3BsYDGtQO2pxkt6QKE4WJonMFXcYuC3 FNEeyOAoDPSwdBwyMYibl539JQU8TwPyKA5nY8Jc h2B1aM4njPKoLSHmsHIyToVoDMVsuo8siXIpEKdl s7XkVAR8zdA2eTVsuTTqPLMkUrJ4JMwhDT4owd11 SHVrKXW4qo3ksBBrpWgvnqMhaRGkIObcN8YpSBAv q415CGHjH2KoSZWmc9N8keZlEdZlNKQtnXI7omX6 EUYyGW9ldgbdk0uvFAvnFXwyKBMsviU7tcZ1UFLt iGRoY4FkyY0rPCHsSH0pxldxa0smOCQ2MJixJQPi ZZR0GiQiVZNzd1Qlwxf1YyToz3GopTZzTQbiR65h f210UUFzcgWtB0vfyHHqhlboqMTpkdnxHXyniyG6 HMRpXPqxkoicSDHnLFznH8rlDzCjSUGqzGpcPSvx h9OiSYXoQSCmSeSpxZYpKMHbIau6RULrbEPkPJJy DqXsS3xeqksaSySIYEVyc0vwR2acgRLDxTTjD4Ul XBngnxBuGNocQGqtMWXcQWL9ME82OTsiPJZqpa46 CPT Code(s) (test code = 3357) v3gzdGOgDVRujFG4HbSiHTRul5zbd8EcnDZa cGFy EKnpeCLyzaKyvq97lWG8jM17CA4uAMGkZkX1WUMi qhY2Aod7YENmMKTqeHUxK714p9hkk7pcoiJujSE5 fVxwYXJkXHBsYWluXGZzMjAgODgzMDBccGFyfQ== CLINICAL HISTORY (test code = 3356) g8uumFItBQSrmPO0MoWfAZPpz9ogl1T sdHBncGFy FKfrzTFrikDpic78nIC3cD43FO0rLSRzYuJ3ZHNi ixN4Nbt4LDNyAYCguVEnT617g9yjw7ulihExgKP8 qZjqOPUvOWSxFXknSHTnWbRgILBjb2GkWIhcG50d g9dmPeTmH7QjvtHwHQRgpwCnf4NhxUJkKSYzvlPv aCS8rTJsgHFyvS== SPECIMEN SOURCE (test code = 3377) g6pujYEdTIVneYH5PgVoHASxp3xmu7Nk dHBncGFy PTtmxDUeusJtct04jKM6gR51LB6qIWDqMnD6VQBb nzL3Bkr0AHGiZVUpbQKuZ694v3ynw1mqsrBeyYT0 fVxwYXJkXHBsYWluXGZzMjAgRXhwbGFudFxwYXJ9 GROSS DESCRIPTION (test code = 3366) q1ybdFBgVEBqxYI0KyMsEWJvl6gjr9 BsdHBncGFy XWlavFTllxGcle80aAO6oS68XM7oFEFpLgR9HLPa oyC2Qfn0OMQeIGGgzPBeD663x1csc3wzmxFxyZQ1 wBqjKNEaQSRkRSivXKTyXmOzSwBoKQs1GUPaGdFc o8pskJPzRFujBXH4oXFdMGNtDVSsBCWnYC69Q9Xb iuNrVHooHOAhYCYmqF6mGN44zEJqhnLeixGgTgWu UCM6zs6xSICgXQMcJZX0p19tkPN6EDtwoTGwE9Kz fWS6fwQhxhY2MNcdgZBhBYS0XgZnLFIcGh4dNOlf glUbk2UvFJEpxCgiuZHpJHNreFXdGMFqQgZylKGs mnXxIN7itAkzsFWzHpCsK79feS9zJCexuJL7VQUp t47xZVPtvwBiBFjbj3ccP4jdSHOhKGQyodCsk6Od ugDuc5a7dYRwqRByoMNnPRUfWjQrWVZtgn9utfBc uW27l6jrBIEkXFdzLBIev5AaVrNDyuEoTPM6kD1l ecNmhyGjr4TwwTe7qONaWnOJtBblSYOqr2LgeCSl Vl5nEDdas0EgULI8RC8bmgC8sC1lGR7mvStxOAOP FZ5uaTScLZLdko3= Gross assessment was performed at (test [facility] enter, code = 2777) Department of Pathology, [address] [place] [id number], Technical component was performed at [facility] er, (test code = 2778) Department of Pathology, [address] [place] [id number], Professional component was performed at [facility] enter, (test code = 2779) Department of Pathology, [address] [place] [address], [facility] [id number] 15:56:00Surgical Pathology Report Case: [id number] Authorizing Provider: Miguel Calderon MD Collected: 10/05/2020 04:25 PM Ordering Location: [facility] PERI[facility] Received: 10/06/2020 09:12 AM SERVICES Pathologist: Darci Starks MD Specimen: Explant, Electrodes PART A SPINAL CORD STIMULATOR ELECTRODE, REMOVAL:SPINAL CORD STIMULATOR ELECTRODE (GROSS DIAGNOSIS ONLY). SigningPathologist Direct Phone Line: [phone] signed by Darci Starks MD on 10/10/2020 at 3:56 [id number] diagnosis: Spinal cord stimulator statusExplantReceived fresh labeledwith the patient's name, accession number and "electrodes" are two metallic duran to duran-white tubular foreign bodies that measure 6.7 cm in length x 0.2 cm in diameter on average, which are consistentwith electrodes. A gross photograph is taken. No sections are submitted. This case is for gross exam ination only. PA/pl [facility], Department of Pathology, [address] [place] [address], [facility], [facility] of [facility]ology, [address] [place], [place] [id number], [facility], Department of Pathology, [address] [place] [address], BL, FLUORO, NON-SPECIFIC, UP TO 1 [id number] 16:30:00Reason for exam:->intrathecal pump [facility] 1980 Sex: MFluoroscopic unit utilized for a procedure performed in the OR. No interpretationwas requested. Refer to the operative report for findings. Refer to PACS for patient radiation dose information.ECG 12 [id number] 07:04:01Interface, External Ris In - 09/20/2020 7:04 AM CDTVentricular Rate 73 BPMAtrial Rate 73 BPMP-R Interval 112 msQRS Duration 92 msQ-T Interval 380 msQTC Calculation(Bazett) 418 msP [place] 67 degreesR [place] 82 degreesT [place] 0 degreesNormal sinus rhythmEarly repolarization - mkildNormal ECGWhen compared with ECG of 12-AUG-2020 15:19,Inverted T waves have replaced nonspecific T wave abnormality in IIIMild early repolarization now seenConfirmed by MD RIK, SARAH ([id number]) on 09/20/2020 7:03:57 [facility] 2 [id number] 14:07:00Reason for exam:->Spinal cord status, pre-op [facility] : 1980 Sex: MFINAL REPORT INDICATION: Spinal cord status, pre-op COMPARISON: None TECHNIQUE: Frontal and lateral views of the chest. FINDINGS: Lungs and pleura: Clear lungs.No effusion.Heart and mediastinum: Normal heart size. Unremarkable mediastinal contours.Osseous structures: No acute abnormality.Additional findings: None. IMPRESSION: No acute intrathoracic abnormality. Signed: Francisca Parish Verified Date/Time: 09/19/2020 14:07:11 Reading Location: [facility] Radiology Reading Room 02:07 PMXR chest 2 [id number] 14:07:00 Interface, External Ris In - 09/19/2020 2:09 PM CDTFINAL REPORT INDICATION: Spinal cord status, pre-op COMPARISON: None TECHNIQUE: Frontal and lateral views of the chest. FINDINGS: Lungs and pleura: Clear lungs. No effusion.Heart and mediastinum: Normal heart size. Unremarkablemediastinal contours.Osseous structures: No acute abnormality.Additional findings: None. IMPRESSION: No acute intrathoracic abnormality. Signed: Francisca Parish Verified Date/Time: 09/19/2020 14:07:11 Reading Location: [facility] Radiology Reading Room [facility] and screen, automated 2020-09-19 13:48:00 Test Item Value Reference Range Interpretation Comments ABO/RH AUTOMATED (BEAKER) (test AB POSITIVE code = 2260) Ab Scrn (test code = 890-4) NEGATIVE [facility] Metabolic [id number] 13:38:00 Test Item Value Reference Range Interpretation Comments Sodium (test code = 139 meq/L 232-877 4530-2) Potassium (test code = 3.7 meq/L 3.5-5.1 2823-3) Chloride (test code = 105 meq/L 98-107 2075-0) CO2 (test code = 28 meq/L 22-29 8-9) BUN (test code = 12 mg/dL 7-21 3094-0) Creatinine (test code 1.21 mg/dL 0.57-1.25 = 2160-0) Glucose (test code = 109 mg/dL 70-105 H 2345-7) Calcium (test code = 8.6 mg/dL 8.4-10.2 65243-4) EGFR (test code = 81 mL/min/1.73 [place] [address]-4) NOT ACCURATE CREATININE CLEARANCE IN PREDICTING GLOMERULAR FILTRATION RATE . ESTIMATED GFR I S NOT APPLICABLE FOR DIALYSIS PATIENTS. ENE (test code = ENE) Banquet Attendant ID - JATINDER C Lab Interpretation Abnormal (test code = 64053-7) [facility]eca[facility]inalysis w/Microscopic + Reflex to Culture 2020-09-19 13:38:00 Test Item Value Reference Range Interpretation Comments Color, UA (test code Yellow = 5778-6) Clarity, UA (test Clear code = 5767-9) Specific [place], UA 1.030 1.001-1.035 (test code = 5811-5) pH, UA (test code = 5.5 5.0-8.0 5803-2) Protein, UA (test 10 mg/dL Negative A code = 64417-5) Glucose, UA (test Negative Negative code = 365) Ketones, UA (test Negative Negative code = 2514-8) Bilirubin, UA (test Negative Negative code = 96042-4) Blood, UA (test code Negative Negative = 34941-1) Nitrite, UA (test Negative Negative code = 5802-4) Leukocytes, UA (test Negative Negative code = 5799-2) Urobilinogen, UA 0.2 mg/dL 0.2-1 (test code = 36135-3) RBC, UA (test code = <1 See_Comment [Autom ated 50391-5) message] The system which generated this result transmit thalia reference range : /HPF. The reference range was not used to interpret this result as normal/abnormal . WBC, UA (test code = <1 See_Comment [Autom ated 5821-4) message] The system which generated this result transmit thalia reference range : /HPF. The reference range was not used to interpret this result as normal/abnormal . Mucus (test code = Few 8247-9) Specimen Source (test code = 2795) ENE (test code = ENE) Banquet Attendant ID - [auto]Banquet Attendant ID - tech Lab Interpretation Abnormal (test code = 65621-4) [facility]AL[facility] W/ REFLEX URINE [id number] 13:38:00 Test Item Value Reference Range Interpretation [...] = 1574) Few SOURCE(BEAKER) (test code = 3990) Banquet Attendant ID - [auto]Banquet Attendant ID - techBASIC METABOLIC [id number] 13:38:00 Test Item Value Reference Range Interpretation [...] S NOT APPLICABLE FOR DIALYSIS PATIEN TS. Banquet Attendant ID - NOV CPT/[id number] 13:37:00 Test Item Value Reference Interpretation Comments Range Protime (test code = 13.4 See_Comment [Autom ated 5902-2) message] The system which generated this result transmitted reference range : 11.9 - 14.2 seconds. The reference range was not used to interpret this result as normal/abnormal . INR (test code = 1.05 See_Comment [Automated 7731-6) message] The system which generated this result transmitted reference range : <=5.90. The reference range was not used to interpret this result as normal/abnormal . PTT (test code = 31.8 See_Comment [Automated 81620-3) message] The system which generated this result transmitted reference range : 22.5 - 36.0 seconds. The reference range was not used to interpret this result as normal/abnormal . ENE (test code = Effective 04/22/2019: ENE) PT Reference Range ChangeNew: 11.9-14.2 Previous: 11.7-14.7 RECOMMENDED COUMADIN/WARFARIN INR THERAPY RANGESSTANDARD DOSE: 2.0-3.0 Includes: PROPHYLAXIS for venous thrombosis, systemic embolization; TREATMENT for venous thrombosis and/or pulmonary embolus.HIGH RISK: Target INR is 2.5-3.5 for patients wiht mechanical heart valves. Lab Interpretation Normal (test code = 81293-3) [facility]ecaPT/[id number] 13:37:00 Test Item Value Reference Range Interpretation [...] heart valves.CBC with platelet count + automated [id number] 13:20:00 Test Item Value Reference Range Interpretation Comments WBC (test code = 6690-2) 9.3 See_Comment [A utomated message] The system [employer] generated this result transmitted ref erence range: 3.5 - 10 .5 K/L. The refe rence range was not u sed to interpret this result as normal/abnor mal. RBC (test code = 789-8) 5.40 See_Comment [Au tomated message] The system [employer] generated this result transmitted ref erence range: 4.63 - 6 .08 M/L. The refe rence range was not u sed to interpret this result as normal/abnor mal. MCHC (test code = 786-4) 32.0 See_Comment L [A utomated message] The system [employer] generated this result transmitted ref erence range: 32.3 - 3 6.5 GM/DL. The refe rence range was not u sed to interpret this result as normal/abnor mal. Hematocrit (test code = 48.5 % 40.1-51 4544-3) MCV (test code = 787-2) 89.8 fL 79-92.2 MCH (test code = 785-6) 28.7 pg 25.7-32.2 RDW (test code = 788-0) 12.9 % 11.6-14.4 Platelets (test code = 238 See_Comment [Aut omated message] 777-3) The system [employer] generated this result transmitted ref erence range: 150 - 45 0 K/CU MM. The referen ce range was not u sed to interpret this result as normal/abnor mal. MPV (test code = 10.8 fL 9.4-12.4 35438-2) nRBC (test code = 413) 0 See_Comment [Aut omated message] The system [employer] generated this result transmitted ref erence range: 0 - 0 /1 00 WBC. The refere nce range was not u sed to interpret this result as normal/abnor mal. % Neutros (test code = 73 % 429) % Lymphs (test code = 19 % 430) % Monos (test code = 7 % 431) % Eos (test code = 432) 1 % % Baso (test code = 437) 0 % # Neutros (test code = 6.74 See_Comment H [Aut omated message] 670) The system [employer] generated this result transmitted ref erence range: 1.78 - 5 .38 K/L. The refe rence range was not u sed to interpret this result as normal/abnor mal. # Lymphs (test code = 1.79 See_Comment [Auto mated message] 414) The system [employer] generated this result transmitted ref erence range: 1.32 - 3 .57 K/L. The refe rence range was not u sed to interpret this result as normal/abnor mal. # Monos (test code = 0.65 See_Comment [Autom ated message] 415) The system [employer] generated this result transmitted ref erence range: 0.30 - 0 .82 K/L. The refe rence range was not u sed to interpret this result as normal/abnor mal. # Eos (test code = 416) 0.06 See_Comment [Au tomated message] The system [employer] generated this result transmitted ref erence range: 0.04 - 0 .54 K/L. The refe rence range was not u sed to interpret this result as normal/abnor mal. # Baso (test code = 417) 0.02 See_Comment [A utomated message] The system [employer] generated this result transmitted ref erence range: 0.01 - 0 .08 K/L. The refe rence range was not u sed to interpret this result as normal/abnor mal. Immature 0 % 0-1 Granulocytes-Relative (test code = 2801) Lab Interpretation (test Abnormal code = 69268-5) [facility] W/PLT COUNT & AUTO [id number] 13:20:00 Test Item Value Reference Range Interpretation [...] 0-1 PERCENT (BEAKER) (test code = 2801) TISSUE [id number] 13:00:00Surgical Pathology Report Case: [id number] Authorizing Provider: Miguel Calderon MD Collected: 08/17/2020 08:40 AM Ordering Location: [facility] Received: 08/17/2020 10:07 AM SERVICES Pathologist: Eboni Renner MD Specimen: Other, Spinal Cord Stimulator; for ID only A. SPINAL CORD STIMULATOR, REMOVAL: - RADIOLOGICAL TECHNOLOGIST FOR GROSS IDENTIFICATION ONLY Signing Pathologist Direct Phone Line: [phone] signed by Eboni Renner MD on 08/17/2020 at 1:00 [id number] diagnosis: Malfunction of spinal cord stimulator, initial encounter. OtherReceived fresh labeled with the patient's name, accession number and "spinal cord stimulator" is a 5.2 x 5.2 x 0.8 cm metallic duran-piece of hardware, which is consistent with with a neural stimulator, and a 8.0 x 4.5 x 0.4 cm aggregate of metallic duran tubing. The following inscription is identified:[facility] MRISN [id number] gross photograph is taken. No sections are submitted. This case is forgross examination only. PA/pl NAFL, FLUORO, NON- SPECIFIC, UP TO 1 [id number] 09:16:00Reason for exam:->Spinal Cord Stimulator RevisionFluoroscopic unit utilized for a procedure performed in the OR. No interpretation was requested. Refer to the operative report for findings. Refer to PACS for patient radiation dose information.SARS-CoV2/RT-PCR ([facility] Ref [facility])2020-08-13 22:54:00 Test Item Value Reference Range Interpretation Comments SARS-COV2/RT-PCR Negative Not Detected, (test code = Negative, See 95386-6) external report for linked test SARS-COV-2 [facility] PERFORMING LAB (test code = 91013-0) ENE (test code = Negative result for [...] of the Act. Fact Sheet for Healthcare Providers:https://www.Meal [employer]aring/sites/default/f amy/product/documents/F act_Sheet_HC_Providers_L nrz_RCDH-DlW-1.pdf Fact Sheet for Healthcare Patients:https://www.dscout/sites/default/fi les/product/documents/Fa ct_Sheet_Patients_Lyra_S ARS-CoV-2.pdf Performing Laboratory:[facility] [place] [address] [facility] ([facility]F [facility])2020-08-13 22:54:00 Test Item Value Reference Range Interpretation Comments SARS-COV2/RT-PCR (test Negative Not Detected, Negative, code = 6295081) See external report for linked test SARS-COV-[address] [facility] (test code = 6105579) Negative result for this test determines that [...] 564(g) of the Act.Fact Sheet for Healthcare Providers:https://www.DocASAP/sites/default/files/product/documents/Fact_Shee u_BC_Ychkzfvkp_Nvpg_DFEH-SgQ-7.pdfFact Sheet for Healthcare Patients:https://www.DocASAP/sites/default/files/product/ documents/Nssh_Wbrii_Bkbtzivn_Txom_QDKU-PaA-3.pdfPerforming Laboratory:[address], [place] [address]PJS, CHEST, 2 VIEWS 2020-08-12 16:53:00Reason for exam:->Malfunction [...] Date/Time: 08/12/2020 16:53:49 URINALYSIS W/ REFLEX URINE [id number] 15:52:00 Test Item Value Reference Range Interpretation [...] = 516) SOURCE(BEAKER) (test code = 2795) Banquet Attendant ID - [auto]Banquet Attendant ID - techBASIC METABOLIC [id number] 15:50:00 Test Item Value Reference Range Interpretation [...] S NOT APPLICABLE FOR DIALYSIS PATIJOSÉ MIGUEL SRINIVASAN Banquet Attendant ID - [id number] 15:49:00 Test Item Value Reference Range Interpretation Comments PTT (test code = 02096-6) 33.7 See_Comment [ Automated message] The system [employer] generated this result transmitted ref erence range: 22.5 - 3 6.0 seconds. The re ference range was not u sed to interpret this result as normal/abnor mal. Lab Interpretation (test Normal code = 00714-9) [facility] 15:[facility]00 Test Item Value Reference Range Interpretation Comments PARTIAL THROMBOPLASTIN TIME 33.7 seconds 22.5-36.0 (BEAKER) (test code = 760) Prothrombin time/[id number] 15:48:00 Test Item Value Reference Interpretation Comments Range Protime (test code = 13.4 See_Comment [Autom ated 5902-2) message] The system which generated this result transmitted reference range : 11.9 - 14.2 seconds. The reference range was not used to interpret this result as normal/abnormal . INR (test code = 1.05 See_Comment [Automated 6301-6) message] The system which generated this result transmitted reference range : <=5.90. The reference range was not used to interpret this result as normal/abnormal . ENE (test code = Effective 04/22/2019: ENE) PT Reference Range ChangeNew: 11.9-14.2 Previous: 11.7-14.7 RECOMMENDED COUMADIN/WARFARIN INR THERAPY RANGESSTANDARD DOSE: 2.0-3.0 Includes: PROPHYLAXIS for venous thrombosis, systemic embolization; TREATMENT for venous thrombosis and/or pulmonary embolus.HIGH RISK: Target INR is 2.5-3.5 for patients wiht mechanical heart valves. Lab Interpretation Normal (test code = 81935-5) [facility]/[id number] 15:48:00 Test Item Value Reference Range Interpretation [...] mechanical heart valves.CBC W/PLT COUNT & AUTO [id number] 15:38:00 Test Item Value Reference Range Interpretation [...] % 0-1 PERCENT (BEAKER) (test code = 2806)
[2021-04-04] MEDS ORDERED: ONDANSETRON 4 MG/2 ML VIAL ONE (01:46)
[2021-04-04] MEDS ORDERED: NA CHLORIDE 0.9% 1,000 ML ONE (01:47)
[2021-04-04 02:12] LABS: Absolute Lymphocytes (CBC) 1.4 K/uL (0.7-4.9); Basophils % 0.3 % (0-1.3); Hematocrit 44.3 % (39.6-49.0); Lymphocytes % 18.5 % (15.3-44.8); MPV 10.5 fL (7.6-11.3); RBC Red Blood Cell Count 5.18 M/uL (4.33-5.43)
[2021-04-04 02:20] LABS: Albumin 3.9 g/dL (3.4-5.0); Bilirubin Direct 0.1 mg/dL (0-0.2); Bilirubin Total 0.5 mg/dL (0.2-1.0); Potassium 3.3 mmol/L (3.5-5.1); Protein, Total 7.4 g/dL (6.4-8.2)
--- NOTE | 2021-04-04 03:02 | EDPHYS ---
Physician Documentation [facility] Name: Harris Alanis Age: 40 yrs Sex: Male : 1980 Arrival Date: 04/03/2021 Time: 23:29 Bed 20 Private MD: ED Physician Hussein Prince HPI: 04/04 01:10 This 40 yrs old Black Male presents to ER via Ambulatory with complaints of Vomiting. arun 01:10 The patient presents to the emergency department with nausea, vomiting, diarrhea, arun abdominal pain, of the right upper quadrant, left upper quadrant, right lower quadrant and left lower quadrant. Onset: The symptoms/episode began/occurred 1 day(s) ago. Possible causes: unknown. The symptoms are aggravated by food . Associated signs and symptoms: The patient has no apparent associated signs or symptoms. Severity of symptoms: At their worst the symptoms were mild in the emergency department the symptoms are unchanged. The patient has not experienced similar symptoms in the past. Historical: - Allergies: 00:23 Claritin; iw - Home Meds: 00:23 hydrocodone-acetaminophen 10-325 mg Oral tab every 6 hours [Active]; tizanidine 4 mg iw oral tab 1 tab nightly [Active]; Zofran Oral [Active]; - PMHx: 00:23 Anxiety; Diabetes - NIDDM; Migraines; nerve pain; Back pain; iw - PSHx: 00:23 Spinal cord stimulator; back surgery; Appendectomy; Cholecystectomy; iw - Immunization history:: Adult Immunizations not up to date. - Social history:: Smoking status: Patient denies any tobacco usage or history of. ROS: 01:11 Constitutional: Negative for fever, chills, and weight loss, Eyes: Negative for injury, arun pain, redness, and discharge, ENT: Negative for injury, pain, and discharge, Neck: Negative for injury, pain, and swelling, Cardiovascular: Negative for chest pain, palpitations, and edema, Respiratory: Negative for shortness of breath, cough, wheezing, and pleuritic chest pain, Back: Negative for injury and pain, : Negative for injury, bleeding, discharge, and swelling, MS/Extremity: Negative for injury and deformity, Skin: Negative for injury, rash, and discoloration, Neuro: Negative for headache, weakness, numbness, tingling, and seizure, Psych: Negative for depression, anxiety, suicide ideation, homicidal ideation, and hallucinations, Allergy/Immunology: Negative for hives, rash, and allergies, Endocrine: Negative for neck swelling, polydipsia, polyuria, polyphagia, and marked weight changes, Hematologic/Lymphatic: Negative for swollen nodes, abnormal bleeding, and unusual bruising. 01:11 Abdomen/GI: Positive for nausea and vomiting, diarrhea, of the right upper quadrant, left upper quadrant, right lower quadrant and left lower quadrant. Exam: :11 Constitutional: This is a well developed, well nourished patient who is awake, alert, arun and in no acute distress. Head/Face: Normocephalic, atraumatic. Eyes: Pupils equal round and reactive to light, extra-ocular motions intact. Lids and lashes normal. Conjunctiva and sclera are non-icteric and not injected. Cornea within normal limits. Periorbital areas with no swelling, redness, or edema. ENT: Nares patent. No nasal discharge, no septal abnormalities noted. Tympanic membranes are normal and external auditory canals are clear. Oropharynx with no redness, swelling, or masses, exudates, or evidence of obstruction, uvula midline. Mucous membranes moist. Neck: Trachea midline, no thyromegaly or masses palpated, and no cervical lymphadenopathy. Supple, full range of motion without nuchal rigidity, or vertebral point tenderness. No Meningismus. Chest/axilla: Normal chest wall appearance and motion. Nontender with no deformity. No lesions are appreciated. Cardiovascular: Regular rate and rhythm with a normal S1 and S2. No gallops, murmurs, or rubs. Normal PMI, no JVD. No pulse deficits. Respiratory: Lungs have equal breath sounds bilaterally, clear to auscultation and percussion. No rales, rhonchi or wheezes noted. No increased work of breathing, no retractions or nasal flaring. Abdomen/GI: Soft, non-tender, with normal bowel sounds. No distension or tympany. No guarding or rebound. No evidence of tenderness throughout. Back: No spinal tenderness. No costovertebral tenderness. Full range of motion. Male : Normal genitalia with no discharge or lesions. Skin: Warm, dry with normal turgor. Normal color with no rashes, no lesions, and no evidence of cellulitis. MS/ Extremity: Pulses equal, no cyanosis. Neurovascular intact. Full, normal range of motion. Neuro: Awake and alert, GCS 15, oriented to person, place, time, and situation. Cranial nerves II-XII grossly intact. Motor strength 5/5 in all extremities. Sensory grossly intact. Cerebellar exam normal. Normal gait. Psych: Awake, alert, with orientation to person, place and time. Behavior, mood, and affect are within normal limits. Vital Signs: 00:19 BP 110 / 82; Pulse 72; Resp 16; Temp 97.7; Pulse Ox 100% on R/A; iw 01:20 BP 119 / 83; Pulse 62; Resp 18; Pulse Ox 100% on R/A; lc1 02:00 BP 113 / 79; Pulse 57; Resp 18; Pulse Ox 100% on R/A; lc1 03:00 BP 116 / 91; Pulse 53; Resp 18; Pulse Ox 100% ; lc1 MDM: 00:55 Patient medically screened. [facility] 01:12 Differential diagnosis: gastritis, cholecystitis, pancreatitis, viral gastroenteritis, arun gastroenteritis. Data reviewed: vital signs, nurses notes, lab test result(s). Data interpreted: color television console monitor: not applicable for this patient encounter. rate is 72 beats/min, Pulse oximetry: on room air is 100 %. Test interpretation: by ED physician or midlevel provider:. Counseling: I had a detailed discussion with the patient and/or guardian regarding: the historical points, exam findings, and any diagnostic results supporting the discharge/admit diagnosis, lab results, radiology results, the need for outpatient follow up, for definitive care, a family practitioner, a oyster tonger. 04/04 01:10 Order name: Basic Metabolic Panel [facility] 04/04 01:10 Order name: CBC with Diff; Complete Time: 03:00 [facility] 04/04 01:10 Order name: Hepatic Function [facility] 04/04 01:10 Order name: Lipase; Complete Time: 03:00 [facility] 04/04 01:11 Order name: Basic Metabolic Panel; Complete Time: 03:00 [facility] 04/04 01:11 Order name: Liver (Hepatic) Function; Complete Time: 03:00 [facility] 04/04 01:10 Order name: IV Saline Lock; Complete Time: 01:51 [facility] 04/04 01:10 Order name: Labs collected and sent; Complete Time: 01:51 arun Administered Medications: 01:50 Drug: Zofran (Ondansetron) 4 mg Route: IVP; Site: right antecubital; 1 02:09 Follow up: Response: No adverse reaction [facility] 01:51 Drug: NS 0.9% 1000 ml Route: IV; Rate: 1 bolus; Site: right antecubital; lc1 03:22 Follow up: IV Status: Completed infusion 1 03:09 Drug: Potassium Effervescent Tablet 25 mEq Route: PO; 8 03:20 Follow up: Response: No adverse reaction; Medication administered at discharge. jm8 Disposition: 04/04/21 03:01 Discharged to Home. Impression: Vomiting, Diarrhea, unspecified, Hypokalemia. - Condition is Stable. - Discharge Instructions: Food Choices to Help Relieve Diarrhea, Adult, Diarrhea, Adult, Potassium Content of Foods, Nausea and Vomiting, Adult, Nausea and Vomiting, Adult, Mqwn-pg-Gclt, Diarrhea, Adult, Exzq-ep-Iysl, Hypokalemia. - Prescriptions for Pepcid 20 mg Oral Tablet - take 1 tablet by ORAL route every 12 hours for 10 days; 20 tablet. Zofran 4 mg Oral Tablet - take 1 tablet by ORAL route every 12 hours As needed; 20 tablet. - Medication Reconciliation Form, Thank You Letter, Antibiotic Education, Prescription Opioid Use form. - Follow up: Private Physician; When: 2 - 3 days; Reason: Recheck today's complaints, Continuance of care, Re-evaluation by your physician. - Problem is new. - Symptoms have improved. Signatures: Dispatcher [employer] EDME Hussein Prince MD MD cha Williams, Irene, RN FLAVIA Leah Ann [facility] Eleazar Bolden RN RN jm8 Corrections: (The following items were deleted from the chart) 03:22 03:01 04/04/2021 03:01 Discharged to Home. Impression: Vomiting; Diarrhea, unspecified; jm8 Hypokalemia. Condition is Stable. Discharge Instructions: Food Choices to Help Relieve Diarrhea, Adult, Diarrhea, Adult, Nausea and Vomiting, Adult, Nausea and Vomiting, Adult, Uytu-gt-Liql, Diarrhea, Adult, Zoqg-nv-Qcnv. Prescriptions for Pepcid 20 mg Oral Tablet - take 1 tablet by ORAL route every 12 hours for 10 days; 20 tablet, Zofran 4 mg Oral Tablet - take 1 tablet by ORAL route every 12 hours As needed; 20 tablet. and Forms are Medication Reconciliation Form, Thank You Letter, Antibiotic Education, Prescription Opioid Use. Follow up: Private Physician; When: 2 - 3 days; Reason: Recheck today's complaints, Continuance of care, Re-evaluation by your physician. Problem is new. Symptoms have improved. arun
--- NOTE | 2021-04-04 03:02 | ER ---
Nurse's Notes [facility] Name: Harris Alanis Age: 40 yrs Sex: Male : 1980 Arrival Date: 04/03/2021 Time: 23:29 Bed 20 Private MD: Diagnosis: Vomiting;Diarrhea, unspecified;Hypokalemia Presentation: 04/04 00:19 Chief complaint: Patient states: has been sick for a while, this weekend it got worse, iw has n/v, headache, can't keep anything down, is due for an endoscopy on Sat with Dr. Bunch/Lea , tonight he tried to eat and he threw up pretty bad, can;t keep fluids down , had labs and CT done within past two weeks. Coronavirus screen: At this time, the client does not indicate any symptoms associated with coronavirus-19. Ebola Screen: Patient negative for fever greater than or equal to 101.5 degrees Fahrenheit, and additional compatible Ebola Virus Disease symptoms Patient denies exposure to infectious person. Patient denies travel to an Ebola-affected area in the 21 days before illness onset. No symptoms or risks identified at this time. Initial Sepsis Screen: Does the patient meet any 2 criteria? No. Patient's initial sepsis screen is negative. Does the patient have a suspected source of infection? No. Patient's initial sepsis screen is negative. Risk Assessment: Do you want to hurt yourself or someone else? Patient reports no desire to harm self or others. Onset of symptoms was April 04, 2021. 00:19 Method Of Arrival: Ambulatory iw 00:19 Acuity: SHANIQUE 3 iw Historical: - Allergies: 00:23 Claritin; iw - Home Meds: 00:23 hydrocodone-acetaminophen 10-325 mg Oral tab every 6 hours [Active]; tizanidine 4 mg iw oral tab 1 tab nightly [Active]; Zofran Oral [Active]; - PMHx: 00:23 Anxiety; Diabetes - NIDDM; Migraines; nerve pain; Back pain; iw - PSHx: 00:23 Spinal cord stimulator; back surgery; Appendectomy; Cholecystectomy; iw - Immunization history:: Adult Immunizations not up to date. - Social history:: Smoking status: Patient denies any tobacco usage or history of. Screenin:20 Abuse screen: Denies threats or abuse. Nutritional screening: No deficits noted. lc1 Tuberculosis screening: No symptoms or risk factors identified. Fall Risk None identified. Assessment: 01:30 General: Appears in no apparent distress. Behavior is calm, cooperative. lc1 02:04 Pain: Denies pain. Neuro: No deficits noted. Cardiovascular: No deficits noted. lc1 Respiratory: No deficits noted. GI: Abdomen is flat, round Reports diarrhea, intolerance of fluids, intolerance of food, nausea, vomiting. GI: states this has been going on for a while. : No deficits noted. EENT: No signs and/or symptoms were reported regarding the EENT system. Derm: No signs and/or symptoms reported regarding the dermatologic system. Musculoskeletal: No signs and/or symptoms reported regarding the musculoskeletal system. 03:00 Reassessment: No changes from previously documented assessment. Patient and/or family lc1 updated on plan of care and expected duration. Pain level reassessed. Patient is alert, oriented x 3, equal unlabored respirations, skin warm/dry/pink. Patient states feeling better. Vital Signs: 00:19 BP 110 / 82; Pulse 72; Resp 16; Temp 97.7; Pulse Ox 100% on R/A; iw 01:20 BP 119 / 83; Pulse 62; Resp 18; Pulse Ox 100% on R/A; lc1 02:00 BP 113 / 79; Pulse 57; Resp 18; Pulse Ox 100% on R/A; lc1 03:00 BP 116 / 91; Pulse 53; Resp 18; Pulse Ox 100% ; lc1 ED Course: 04/03 23:29 Patient arrived in ED. ag3 04/04 00:21 Triage completed. iw 00:23 Arm band placed on. iw 00:55 Hussein Prince MD is Attending Physician. arun 01:06 Leah Ann is Primary Nurse. lc1 01:20 Patient has correct armband on for positive identification. Fall risk band placed. Bed lc1 in low position. Side rails up X 1. Pulse ox on. NIBP on. Door closed. Noise minimized. Lights dimmed. 01:20 No provider procedures requiring assistance completed. Inserted saline lock: 20 gauge lc1 in right antecubital area, using aseptic technique. Blood collected. 01:51 Basic Metabolic Panel Sent. lc1 01:51 CBC with Diff Sent. lc1 01:51 Hepatic Function Sent. lc1 01:51 Lipase Sent. lc1 02:09 No apparent distress. Awaiting lab results. lc1 03:00 IV discontinued, intact, bleeding controlled. lc1 Administered Medications: 01:50 Drug: Zofran (Ondansetron) 4 mg Route: IVP; Site: right antecubital; lc1 02:09 Follow up: Response: No adverse reaction lc1 01:51 Drug: NS 0.9% 1000 ml Route: IV; Rate: 1 bolus; Site: right antecubital; lc1 03:22 Follow up: IV Status: Completed infusion 1 03:09 Drug: Potassium Effervescent Tablet 25 mEq Route: PO; jm8 03:20 Follow up: Response: No adverse reaction; Medication administered at discharge. jm8 Outcome: 03:01 Discharge ordered by . arun 03:21 Discharged to home ambulatory. ramy 03:21 Condition: good 03:21 Discharge instructions given to patient, Instructed on discharge instructions, follow up and referral plans. medication usage, Demonstrated understanding of instructions, follow-up care, medications, Prescriptions given X 2. 03:22 Patient left the ED. jm8 Signatures: Hussein Prince MD MD cha Williams, Irene, RN Leah Gonzales 1 Rebecca Harris 3 Eleazar Bolden, RN RN jm8 Corrections: (The following items were deleted from the chart) 02:22 02:04 General: Appears in no apparent distress. Behavior is calm, cooperative, lc1 lc1
[2021-04-04 03:27] VITALS: TEMP 97.7; O2SAT 100
[2021-04-04] MEDS ORDERED: POTASSIUM 25 MEQ EFFERV TAB ONE (03:27)
[2021-04-04 03:31] VITALS: BP 116/91
== END 2021-04-04 03:22 | disposition home or self-care (01) ==
LOC: ER 23:27
DX: E87.6 Hypokalemia (principal); R19.7 Diarrhea, unspecified; E11.9 Type 2 diabetes mellitus without complications; F41.9 Anxiety disorder, unspecified; Z88.8 Allergy status to other drugs, medicaments and biological substances
CPT/HCPCS: 85025; 80048; 36415; 80076; 83690; J7030; J2405; 96361; 96374; 99284

== ENCOUNTER 2021-08-10 23:08 | Emergency (ER) | payer OTHER ==
[2021-08-11 00:04] LABS: Basophils % 0.3 % (0-1.3); Hematocrit 45.5 % (39.6-49.0); Lymphocytes % 17.8 % (15.3-44.8); MPV 9.7 fL (7.6-11.3); RBC Red Blood Cell Count 5.25 M/uL (4.33-5.43)
[2021-08-11 00:23] LABS: ALT/SGPT 63 U/L (12-78); AST/SGOT 24 U/L (15-37); Albumin 3.6 g/dL (3.4-5.0); Alkaline Phosphatase 71 U/L (45-117); BUN Blood Urea Nitrogen 10 mg/dL (7-18); Bicarbonate 30 mmol/L (21-32); Bilirubin Direct < 0.1 mg/dL (0-0.2); Bilirubin Total 0.3 mg/dL (0.2-1.0); Glucose Level 104 mg/dL (74-106); Lipase 71 U/L (73-393); Potassium 3.6 mmol/L (3.5-5.1); Protein, Total 7.2 g/dL (6.4-8.2); Sodium Level 142 mmol/L (136-145)
[2021-08-11 00:35] LABS: Urine Blood Negative (Negative); Urine Glucose Negative (Negative); Urine Protein 1+ (Negative); Urine Specific Gravity 1.025 (1.005-1.030); Urine pH 7.5 (5.0-7.0)
[2021-08-11 01:04] LABS: Urine Bacteria 20-50 /HPF (NONE SEEN); Urine RBC <5 /HPF (NONE SEEN)
[2021-08-11 01:05] LABS: Urine Mucus 3+ /HPF (NONE SEEN)
[2021-08-11] MEDS ORDERED: MORPHINE 4 MG/ML SYR ONE (01:05)
[2021-08-11] MEDS ORDERED: NA CHLORIDE 0.9% 1,000 ML ONE (01:05)
--- NOTE | 2021-08-11 02:16 | ER ---
Nurse's Notes [facility] Name: Harris Alanis Age: 41 yrs Sex: Male : 1980 Arrival Date: 08/10/2021 Time: 23:11 Bed 19 Private MD: Diagnosis: Lower abdominal pain, unspecified;UTI/ Urinary tract infection, site not specified Presentation: 08/10 23:31 Chief complaint: Patient states: right lower quad. pain that started a few days ago, em reports 1 episode of vomiting bright red blood, denies diarrhea or fever. Coronavirus screen: Vaccine status:. Ebola Screen: Patient negative for fever greater than or equal to 101.5 degrees Fahrenheit, and additional compatible Ebola Virus Disease symptoms Patient denies exposure to infectious person. Patient denies travel to an Ebola-affected area in the 21 days before illness onset. No symptoms or risks identified at this time. Initial Sepsis Screen: Does the patient meet any 2 criteria? No. Patient's initial sepsis screen is negative. Does the patient have a suspected source of infection? No. Patient's initial sepsis screen is negative. Risk Assessment: Do you want to hurt yourself or someone else? Patient reports no desire to harm self or others. Onset of symptoms was August 10, 2021. 23:31 Method Of Arrival: Ambulatory em 23:31 Acuity: SHANIQUE 3 em Historical: - Allergies: 23:34 Claritin; em - PMHx: 23:34 Anxiety; Back pain; Diabetes - NIDDM; chronic back pain; chroinc back pain; Migraines; em nerve pain; - PSHx: 23:34 Appendectomy; Cholecystectomy; em - Immunization history:: Adult Immunizations up to date. - Social history:: Smoking status: Patient denies any tobacco usage or history of. Assessment: 23:53 General: Appears in no apparent distress. slender, Behavior is calm, cooperative, kc4 appropriate for age, Reports fatigue for 0-12 hours, Denies fever, chills. Pain: Complains of pain in abdomen Pain does not radiate. Pain currently is 6 out of 10 on a pain scale. level that patient reports is acceptable is 2 out of 10 on a pain scale. Vital Signs: 23:31 BP 128 / 90; Pulse 90; Resp 18; Temp 97.5; Pulse Ox 100% on R/A; Weight 70.76 kg; em Height 6 ft. 0 in. (182.88 cm); 23:31 Body Mass Index 21.16 (70.76 kg, 182.88 cm) em ED Course: 23:11 Patient arrived in ED. 23:34 Triage completed. em 23:34 Arm band placed on. em 23:39 Doris Gelz is Primary Nurse. kc4 23:40 Hussein Card PA is PHCP. cp 23:40 Herberth Grahma MD is Attending Physician. cp 08/11 00:37 Urine Microscopic Only Sent. kc4 01:16 CT Abd/Pelvis - IV Contrast Only In Process Unspecified. EDMS 03:13 No provider procedures requiring assistance completed. IV discontinued, intact, em bleeding controlled, No redness/swelling at site. Pressure dressing applied. Administered Medications: 00:42 Drug: NS 0.9% 1000 ml Route: IV; Rate: 1 bolus; Site: right antecubital; kc4 00:43 Drug: morphine 4 mg Route: IVP; Site: right antecubital; kc4 02:04 CANCELLED (Other Intervention Used): Rocephin (cefTRIAXone) 1 grams IM once bb 02:12 Drug: ProTONIX (pantoprazole) 40 mg Route: IVP; Site: right antecubital; kc4 02:12 Drug: Rocephin (cefTRIAXone) 1 grams Route: IV; Rate: calculated rate; Site: right kc4 antecubital; 02:45 Drug: Demerol (meperidine) 25 mg Route: IVP; Site: right antecubital; em 03:13 Follow up: Response: No adverse reaction; Marked relief of symptoms; Pain is decreased em Outcome: 02:16 Discharge ordered by MD. cp 03:13 Discharged to home ambulatory, with family. em 03:13 Condition: stable 03:13 Discharge instructions given to patient, family, Instructed on discharge instructions, follow up and referral plans. medication usage, Demonstrated understanding of instructions, follow-up care, medications, Prescriptions given X 2. 03:14 Patient left the ED. em Signatures: Dispatcher [employer] EDMS Napoleon Devine RN RN em Hussein Card PA PA cp Marsh, Wendy Doris Glez kc4 Santana, Kaela RN bb
--- NOTE | 2021-08-11 02:16 | EDPHYS ---
Physician Documentation [facility] Name: Harris Alanis Age: 41 yrs Sex: Male : 1980 Arrival Date: 08/10/2021 Time: 23:11 Bed 19 Private MD: ED Physician Herberth Graham HPI: 08/11 00:30 This 41 yrs old Black Male presents to ER via Ambulatory with complaints of Abdominal cp Pain, Vomiting - Blood. 00:30 The patient presents with abdominal pain right lower quadrant. cp 00:30 Onset: The symptoms/episode began/occurred few days ago. cp 00:30 The symptoms radiate to the right flank. Associated signs and symptoms: Pertinent cp positives: 1 episode of vomiting blood today, Pertinent negatives: fever. 00:30 The symptoms are described as sharp. Severity of pain: in the emergency department the cp pain is unchanged despite home interventions. Patient reports history of appendectomy. Historical: - Allergies: 08/10 23:34 Claritin; em - PMHx: 23:34 Anxiety; Back pain; Diabetes - NIDDM; chronic back pain; chroinc back pain; Migraines; em nerve pain; - PSHx: 23:34 Appendectomy; Cholecystectomy; em - Immunization history:: Adult Immunizations up to date. - Social history:: Smoking status: Patient denies any tobacco usage or history of. ROS: 08/11 00:35 Constitutional: Negative for body aches, chills, fever, poor PO intake. cp 00:35 Eyes: Negative for injury, pain, redness, and discharge. cp 00:35 Cardiovascular: Negative for chest pain, palpitations. 00:35 Respiratory: Negative for cough, shortness of breath, wheezing. 00:35 Abdomen/GI: Positive for abdominal pain, nausea, vomiting, hematemesis, Negative for diarrhea, constipation, black/tarry stool, rectal bleeding. Exam: 00:40 Constitutional: The patient appears in no acute distress, alert, awake, non-toxic, well cp developed, well nourished. 00:40 Head/Face: Normocephalic, atraumatic. cp 00:40 Eyes: Periorbital structures: appear normal, Conjunctiva: normal, no exudate, no injection, Sclera: no appreciated abnormality, Lids and lashes: appear normal, bilaterally. 00:40 ENT: External ear(s): are unremarkable, Nose: is normal, Mouth: Lips: moist, Oral mucosa: moist, Posterior pharynx: Airway: no evidence of obstruction, patent. 00:40 Chest/axilla: Inspection: normal, Palpation: is normal, no crepitus, no tenderness. 00:40 Cardiovascular: Rate: normal, Rhythm: regular. 00:40 Respiratory: the patient does not display signs of respiratory distress, Respirations: normal, no use of accessory muscles, no retractions, labored breathing, is not present, Breath sounds: are clear throughout, no decreased breath sounds, no stridor, no wheezing. 00:40 Abdomen/GI: Inspection: abdomen appears normal, Bowel sounds: active, all quadrants, Palpation: soft, in all quadrants, moderate abdominal tenderness, in the anterior aspect of right lateral abdomen and right lower quadrant, rebound tenderness, is not appreciated, voluntary guarding, is elicited in the anterior aspect of right lateral abdomen and right lower quadrant. 00:40 Back: CVA tenderness, is absent. Vital Signs: 08/10 23:31 BP 128 / 90; Pulse 90; Resp 18; Temp 97.5; Pulse Ox 100% on R/A; Weight 70.76 kg; em Height 6 ft. 0 in. (182.88 cm); 23:31 Body Mass Index 21.16 (70.76 kg, 182.88 cm) em MDM: 23:41 Patient medically screened. cp 08/11 00:00 Differential diagnosis: Ureterolithiasis, urinary tract infection, colitis, bowel cp obstruction. 02:15 Data reviewed: vital signs, nurses notes, lab test result(s), radiologic studies, CT cp scan. 02:15 Counseling: I had a detailed discussion with the patient and/or guardian regarding: the cp historical points, exam findings, and any diagnostic results supporting the discharge/admit diagnosis, lab results, radiology results, to return to the emergency department if symptoms worsen or persist or if there are any questions or concerns that arise at home. Special discussion: Based on the patient's Hx, exam, and Dx evaluation, there is no indication for emergent surgery or inpatient Tx. It is understood by the patient/guardian that if the Sx's persist or worsen they need to return immediately for re-evaluation. 08/10 23:40 Order name: Basic Metabolic Panel; Complete Time: 00:28 cp 08/10 23:40 Order name: CBC with Diff; Complete Time: 00:28 cp 08/10 23:40 Order name: Hepatic Function; Complete Time: 00:28 cp 08/10 23:40 Order name: Lipase; Complete Time: 00:28 cp 08/10 23:40 Order name: PT-INR; Complete Time: 00:28 cp 08/10 23:40 Order name: Ptt, Activated; Complete Time: 00:28 cp 08/10 23:40 Order name: Urine Microscopic Only; Complete Time: 01:57 08/11 01:57 Interpretation: Normal except: UBACT 20-50; MUCUS 3+. cp 08/11 00:29 Order name: CT Abd/Pelvis - IV Contrast Only 08/11 00:34 Order name: Urine Dipstick-Ancillary; Complete Time: 01:57 EDMT 08/11 01:06 Order name: Urine Culture EDMT 08/10 23:40 Order name: IV Saline Lock; Complete Time: 00:37 08/10 23:40 Order name: Labs collected and sent; Complete Time: 00:37 08/10 23:40 Order name: Urine Dipstick-Ancillary (obtain specimen); Complete Time: 00:37 08/11 01:57 Order name: PO challenge cp Administered Medications: 00:42 Drug: NS 0.9% 1000 ml Route: IV; Rate: 1 bolus; Site: right antecubital; kc4 00:43 Drug: morphine 4 mg Route: IVP; Site: right antecubital; kc4 02:04 CANCELLED (Other Intervention Used): Rocephin (cefTRIAXone) 1 grams IM once bb 02:12 Drug: ProTONIX (pantoprazole) 40 mg Route: IVP; Site: right antecubital; kc4 02:12 Drug: Rocephin (cefTRIAXone) 1 grams Route: IV; Rate: calculated rate; Site: right kc4 antecubital; 02:45 Drug: Demerol (meperidine) 25 mg Route: IVP; Site: right antecubital; em 03:13 Follow up: Response: No adverse reaction; Marked relief of symptoms; Pain is decreased em Disposition: 04:14 Co-signature as Attending Physician, Herberth Graham MD. pkl Disposition Summary: 08/11/21 02:16 Discharge Ordered Location: Home cp Problem: new cp Symptoms: have improved cp Condition: Stable cp Diagnosis - Lower abdominal pain, unspecified cp - UTI/ Urinary tract infection, site not specified cp Followup: cp - With: Private Physician - When: 2 - 3 days - Reason: Worsening of condition Discharge Instructions: - Discharge Summary Sheet cp - Abdominal Pain, Adult cp - Urinary Tract Infection, Adult cp Forms: - Medication Reconciliation Form cp - Thank You Letter cp - Antibiotic Education cp - Prescription Opioid Use cp Prescriptions: - Zofran 4 mg Oral Tablet - take 1 tablet by ORAL route every 12 hours As needed; 20 tablet; Refills: 0, cp Product Selection Permitted - Cipro 500 mg Oral Tablet - take 1 tablet by ORAL route every 12 hours for 7 days; 14 tablet; Refills: 0, cp Product Selection Permitted Signatures: Dispatcher [employer] Herberth Hanna MD MD pkl Munoz, Edgar RN RN Kaela Vazquez RN RN bb Hussein Card PA PA Doris Costa kc4 Corrections: (The following items were deleted from the chart) 02:04 01:58 Rocephin (cefTRIAXone) 1 grams IM once ordered. cp bb
[2021-08-11] MEDS ORDERED: CEFTRIAXONE/SWI 1gm 1 GM/10 ML SYR ONE (02:31)
[2021-08-11] MEDS ORDERED: PANTOPRAZOLE 40 MG INJ ONE (02:31)
[2021-08-11] MEDS ORDERED: MEPERIDINE HCL 25 MG/ML SYR ONE (02:51)
[2021-08-11 03:41] VITALS: BP 128/90; TEMP 97.5; O2SAT 100
--- NOTE | 2021-08-11 11:31 | RAD REPORT ---
EXAM DESCRIPTION: CT - Abdomen Pelvis W Contrast - 08/11/2021 1:17 am COMPARISON: 03/24/2021. TECHNIQUE: CT ABDOMEN PELVIS WITH IV CONTRAST on 08/11/2021 12:29 AM CDT This exam was performed according to our departmental dose-optimization program, which includes autom ated exposure control, adjustment of the mA and/or kV according to patient size and/or use of iterati ve reconstruction technique. FINDINGS: Lower lungs are clear. Abdomen: The liver is normal in appearance. There is minimal intra and extrahepatic biliary dilatatio n. Cholecystectomy was performed. The pancreas and spleen are normal in appearance. The adrenal gland s and kidneys are unremarkable. Abdominal aorta is normal in course and caliber without aneurysm. There is no free air. There is no r etroperitoneal adenopathy. Pelvis: There is no bowel obstruction. Urinary bladder is unremarkable. There is no free fluid. Appen dectomy was performed. Neural stimulator is present with the generator in the subcutaneous fat of the lower right flank. Skeleton: There are no acute osseous findings. No suspicious bony lesions. IMPRESSION: No acute process. Electronically signed by: Aly Varela MD 08/11/2021 1:40 AM CDT Due to temporary technical issues with the PACS/Fluency reporting system, reports are being signed by the in house radiologist without review as a courtesy to ensure prompt reporting. The interpreting r adiologist is fully responsible for the content of the report.
== END 2021-08-11 03:14 | disposition home or self-care (01) ==
LOC: ER 23:08
DX: N39.0 Urinary tract infection, site not specified (principal); Z88.8 Allergy status to other drugs, medicaments and biological substances
CPT/HCPCS: 87088; 85025; 87086; 80048; 36415; 85610; 80076; 85730; 83690; 74177; 96375; 96374; 99284; Q9967; C9113; J2175; J0696; J7030; 81003; 81015

== ENCOUNTER 2021-09-22 05:52 | Emergency (ER) | payer OTHER ==
[2021-09-22] MEDS ORDERED: IBUPROFEN 400 MG TAB ONE ×2 (06:42→06:45)
--- NOTE | 2021-09-22 07:41 | RAD REPORT ---
EXAM DESCRIPTION: RAD - Hand Right 3 View - 09/22/2021 6:53 am CLINICAL HISTORY: PAIN COMPARISON: Hand Right 3 View dated 07/10/2013 FINDINGS: No acute fracture. No malalignment. No significant focal degenerative changes. IMPRESSION: No acute osseous abnormality involving the right hand.
--- NOTE | 2021-09-22 08:04 | ER ---
Nurse's Notes [facility] Name: Harris Alanis Age: 41 yrs Sex: Male : 1980 Arrival Date: 09/22/2021 Time: 05:55 Bed 20 Private MD: Diagnosis: Contusion of hand Presentation: 09/22 06:00 Acuity: SHANIQUE 4 dc2 06:00 Chief complaint: Patient states: Reports striking wall with right hand approximately cc4 15-20 min [employer] with pain 10/10 right hand with deformity noted proximal right digit at base of hand. Coronavirus screen: Vaccine status: Patient reports being unvaccinated. Client denies travel out of the [place] in the last 14 days. At this time, the client does not indicate any symptoms associated with coronavirus-19. Ebola Screen: Patient negative for fever greater than or equal to 101.5 degrees Fahrenheit, and additional compatible Ebola Virus Disease symptoms No symptoms or risks identified at this time. Initial Sepsis Screen: Does the patient meet any 2 criteria? No. Patient's initial sepsis screen is negative. Risk Assessment: Do you want to hurt yourself or someone else? Patient reports no desire to harm self or others. Onset of symptoms was September 22, 2021 at 05:30. 06:00 Method Of Arrival: Ambulatory cc4 06:05 Risk Assessment: Do you want to hurt yourself or someone else? Patient reports no dc2 desire to harm self or others. 06:05 Onset of symptoms was September 22, 2021 at 05:30. dc2 06:05 Initial Sepsis Screen: Does the patient meet any 2 criteria? No. Patient's initial dc2 sepsis screen is negative. Does the patient have a suspected source of infection? No. Patient's initial sepsis screen is negative. Triage Assessment: 06:00 General: Appears uncomfortable, Behavior is calm, cooperative. Pain: Complains of pain cc4 in right hand Pain currently is 10 out of 10 on a pain scale. at worst was 10 out of 10 on a pain scale. level that patient reports is acceptable is 0 out of 10 on a pain scale. Quality of pain is described as throbbing, Pain began 30 min ago. 06:00 Injury Description: Deformity sustained to right hand is Swelling with deformity noted cc4 base of right hand \T\ junction of proximal 4 th digit; ice pack applied to right hand. Historical: - Allergies: 06:05 Claritin; dc2 - PMHx: 06:05 Anxiety; Back pain; Migraines; nerve pain; dc2 - Immunization history:: Adult Immunizations up to date, Client reports having NOT received the Covid vaccine. - Social history:: Smoking status: Patient uses Pt states he vapes.. Screenin:11 Abuse screen: Denies threats or abuse. Denies injuries from another. Nutritional dc2 screening: No deficits noted. Tuberculosis screening: No symptoms or risk factors identified. Never had TB. Fall Risk None identified. No fall in past 12 months (0 pts). No secondary diagnosis (0 pts). No IV (0 pts). Ambulatory Aid- None/Bed Rest/Nurse Assist (0 pts). Gait- Normal/Bed Rest/Wheelchair (0 pts) Mental Status- Oriented to own ability (0 pts). Total Acevedo Fall Scale indicates No Risk (0-24 pts). Assessment: 06:05 General: Appears in no apparent distress. uncomfortable, slender, well groomed, dc2 Behavior is calm, cooperative. Pain: Complains of pain in Right hand. Neuro: No deficits noted. Level of Consciousness is awake, alert, obeys commands, Oriented to person, place, time, situation. Respiratory: No deficits noted. GI: No deficits noted. : No signs and/or symptoms were reported regarding the genitourinary system. Musculoskeletal: Capillary refill < 3 seconds, is brisk, in right fingers. Range of motion: limited in Right Hand Swelling present in Right hand Reports pain in Right Hand After hitting stud about 20 minutes [employer]. 06:15 Reassessment: Dr. Xiao in to see. cc4 Vital Signs: 06:00 BP 126 / 92; Pulse 111; Resp 20; Temp 98.6(O); Pulse Ox 100% on R/A; Weight 81.65 kg; cc4 Height 5 ft. 11 in. (180.34 cm); 06:00 BP 126 / 92; Pulse 111; Resp 20; Temp 98.6; Pulse Ox 100% on R/A; cc4 06:00 Body Mass Index 25.10 (81.65 kg, 180.34 cm) 4 ED Course: 05:55 Patient arrived in ED. 06:03 Clarence Zarco PA is PHCP. [facility] 06:03 John Xiao MD is Attending Physician. [facility] 06:05 Patient has correct armband on for positive identification. Bed in low position. Call dc2 light in reach. Side rails up X 1. 06:05 Patient Ice pack to right hand. dc2 06:09 Keiry Escalante, RN is Primary Nurse. cc4 06:11 Triage completed. dc2 06:53 Hand Right 3 View XRAY In Process Unspecified. EDMS 07:47 Orthoglass splint: Ulnar gutter/Boxer splint applied on. mh5 07:48 Pulse ox on. NIBP on. 5 08:03 Nimesh Roman MD is Referral Physician. jmm 08:06 Orthoglass splint: Ulnar gutter/Boxer splint applied on right forearm. 5 08:10 No provider procedures requiring assistance completed. IV discontinued, intact, jw6 bleeding controlled, No redness/swelling at site. Pressure dressing applied. Administered Medications: 06:19 Drug: Ibuprofen 800 mg Route: PO; dc2 Outcome: 08:04 Discharge ordered by MD. jmm 08:10 Discharged to home ambulatory. jw6 08:10 Condition: good 08:10 Discharge instructions given to patient, Instructed on discharge instructions, follow up and referral plans. Demonstrated understanding of instructions, follow-up care. 08:12 Patient left the ED. jw6 Signatures: Dispatcher [employer] EDMT Clarence Zarco PA PA [facility] Uma Ruiz 5 Sugar Howard Keiry Escalante RN RN 4 Angeli Antonio RN RN dc2 Olga Miranda jw6 Corrections: (The following items were deleted from the chart) 06:15 06:05 PMHx: Diabetes - NIDDM; dc2 cc4 06:15 06:13 PMHx: chroinc back pain; cc4 cc4 06:15 06:13 PMHx: chronic back pain; cc4 cc4 06:15 06:13 PSHx: Appendectomy; cc4 cc4 06:15 06:13 PSHx: Cholecystectomy; cc4 cc4
--- NOTE | 2021-09-22 08:04 | EDPHYS ---
Physician Documentation [facility] Name: Harris Alanis Age: 41 yrs Sex: Male : 1980 Arrival Date: 09/22/2021 Time: 05:55 Bed 20 Private MD: ED Physician John Xiao HPI: 09/22 06:21 This 41 yrs old Black Male presents to ER via Ambulatory with complaints of Hand Injury.jmm 06:21 The patient or guardian reports injury, pain. Onset: The symptoms/episode jmm began/occurred acutely, today. Modifying factors: The symptoms are alleviated by nothing, the symptoms are aggravated by nothing. Patient states punching a stud with his right hand. Denies other injury. Historical: - Allergies: 06:05 Claritin; dc2 - PMHx: 06:05 Anxiety; Back pain; Migraines; nerve pain; dc2 - Immunization history:: Adult Immunizations up to date, Client reports having NOT received the Covid vaccine. - Social history:: Smoking status: Patient uses Pt states he vapes.. ROS: 06:21 Constitutional: Negative for fever, chills, and weight loss, Cardiovascular: Negative jmm for chest pain, palpitations, and edema, Respiratory: Negative for shortness of breath, cough, wheezing, and pleuritic chest pain. 06:21 MS/extremity: Positive for injury or acute deformity. 06:21 All other systems are negative. Exam: 06:21 Constitutional: This is a well developed, well nourished patient who is awake, alert, jmm and in no acute distress. Head/Face: atraumatic. Eyes: EOMI, no conjunctival erythema appreciated ENT: Moist Mucus Membranes Neck: Trachea midline, Supple Chest/axilla: Normal chest wall appearance and motion. Cardiovascular: Regular rate and rhythm. No edema appreciated Respiratory: Normal respirations, no respiratory distress appreciated Abdomen/GI: Non distended, soft Back: Normal ROM Skin: General appearance color normal 06:21 Musculoskeletal/extremity: swelling noted to the 4th and 5th mcp region, ttp, sensation intact, painful rom appreciated, compartments are soft, NVI. 06:21 Skin: Appearance: Color: normal in color. 06:21 Neuro: Orientation: is normal, Mentation: is normal, Memory: is normal. 06:21 Psych: Behavior/mood is pleasant, cooperative. Vital Signs: 06:00 BP 126 / 92; Pulse 111; Resp 20; Temp 98.6(O); Pulse Ox 100% on R/A; Weight 81.65 kg; cc4 Height 5 ft. 11 in. (180.34 cm); 06:00 BP 126 / 92; Pulse 111; Resp 20; Temp 98.6; Pulse Ox 100% on R/A; cc4 06:00 Body Mass Index 25.10 (81.65 kg, 180.34 cm) 4 MDM: 06:13 Patient medically screened. [facility] 08:03 Data reviewed: vital signs, nurses notes. Counseling: I had a detailed discussion with [facility] the patient and/or guardian regarding: the historical points, exam findings, and any diagnostic results supporting the discharge/admit diagnosis, radiology results, the need for outpatient follow up, to return to the emergency department if symptoms worsen or persist or if there are any questions or concerns that arise at home. 09/22 06:14 Order name: Hand Right 3 View XRAY; Complete Time: 07:43 [facility] 09/22 07:40 Order name: Ulnar Gutter splint; Complete Time: 07:47 [facility] Administered Medications: 06:19 Drug: Ibuprofen 800 mg Route: PO; dc2 Disposition: 09/23 04:42 Co-signature as Attending Physician, John Xiao MD. [email or web address] Disposition Summary: 09/22/21 08:04 Discharge Ordered Location: Home [facility] Condition: Stable [facility] Diagnosis - Contusion of hand [facility] Followup: [facility] - With: Nimesh Roman MD - When: 2 - 3 days - Reason: Recheck today's complaints, Continuance of care, Re-evaluation by your physician Discharge Instructions: - Discharge Summary Sheet [facility] - Hand Contusion [facility] Forms: - Medication Reconciliation Form [facility] - Thank You Letter [facility] - Antibiotic Education [facility] - Prescription Opioid Use [facility] Signatures: Dispatcher [employer] EDMS Clarence Zarco PA PA jmm Holmes, Maurice, MD MD [email or web address] Keiry Escalante RN RN cc4 Angeli Antonio RN RN dc2 Corrections: (The following items were deleted from the chart) 09/22 06:15 06:05 PMHx: Diabetes - NIDDM; dc2 cc4 06:15 06: PMHx: chroinc back pain; cc4 cc4 06: PMHx: chronic back pain; cc4 cc4 06: PSHx: Appendectomy; cc4 cc4 : PSHx: Cholecystectomy; cc4 cc4
[2021-09-22 08:17] VITALS: BP 126/92; TEMP 98.6; O2SAT 100
== END 2021-09-22 08:12 | disposition home or self-care (01) ==
LOC: ER 05:52
PROC: 2W3CX1Z Immobilization of Right Lower Arm using Splint (ICD-10-PCS; principal; 2021-09-22)
DX: S60.221A Contusion of right hand, initial encounter (principal); W22.8XXA Striking against or struck by other objects, initial encounter; Z88.8 Allergy status to other drugs, medicaments and biological substances
CPT/HCPCS: 99284

== ENCOUNTER 2023-10-10 21:37 | Emergency (ER) | payer OTHER ==
--- OUTSIDE RECORDS SUMMARY | 2023-10-10 21:50 | XMS REPORT | Continuity of Care Document ---
:1980 Author Organization [facility] t Address [address] [facility] [address] [facility] [address] [place] [address] Care Team Providers Name Role Phone Zhao Epstein (Peng) Primary Care Physician Carmen Roper Attending Clinician Unavailable ELVI RAMIREZ Attending Clinician Unavailable EDUARDO CALDERON Attending Clinician Unavailable [place] DEMPSEY, Dorothy Colby Attending Clinician Marivel DEMPSEY, Nima Attending Clinician Ethan DEMPSEY, Bren Miller Attending Clinician Brooklyn DEMPSEY, Anuradha Morrison Attending Clinician BROOKLYN, ANURADHA MORRISON Attending Clinician Unavailable DOROTHY CONRAD Attending Clinician Unavailable CHARO SOLIS Attending Clinician Unavailable Kvng DEMPSEY, Eduardo Attending Clinician Jose Yost MD Attending Clinician [phone] Valencia-SallyLiset maldonado CRNA Attending Clinician Doctor Unassigned, Mulhall Attending Clinician Unavailable Will DEMPSEY, Charo Attending Clinician Pob, Adc Lab Main Attending Clinician Unavailable JuanAnila DEMPSEY, Angeli Pride Attending Clinician [phone] Home BEJARANO, José Miguel Martínez Attending Clinician Low DEMPSEY, Karol Rivas Attending Clinician [phone] Lopez Gil MD Attending Clinician [phone] Humberto Hdez MD Attending Clinician HUMBERTO HDEZ Attending Clinician Unavailable Jennifer Cassidy MD Attending Clinician [phone] JENNIFER CASSIDY Attending Clinician Unavailable Ines Pringle MD Attending Clinician [phone] INES HAM Attending Clinician Unavailable Trev DEMPSEY, Neftaly Jimenez Attending Clinician Michelet Shah MD Attending Clinician MICHELET SHAH Attending Clinician Unavailable Holley Kinney MD Attending Clinician HOLLEY KINNEY Attending Clinician Unavailable James Aponte MD Attending Clinician Ebony Pina NP Attending Clinician EBONY PINA Attending Clinician Unavailable William BONDS, Fabien Attending Clinician Kvng Fiore MD Attending Clinician KVNG FIORE Attending Clinician Unavailable ELVI RAMIREZ Admitting Clinician Unavailable EDUARDO CALDERON Admitting Clinician Unavailable NIMA ALEXANDER Admitting Clinician Unavailable LOPEZ GIL Admitting Clinician Unavailable HUMBERTO HDEZ Admitting Clinician Unavailable Payers Payer Name Policy Type Policy Number Effective Date Expiration Date Baudilio henao [facility] [id number] [address] [facility] 00:00:00 [place]ICA[place] [id number] 2020 2020 [place] 00:00:00 00:00:00 CDC REVIEW [id number] 2019 2019 00:00:00 00:00:00 [facility] [id number] 2021 00:00:00 [place] [id number] [facility] Problems Condition Condition Condition Status Onset Resolution Last Treating Co mments Source Name Details Category Date Date Treatment Clinician Date Baclofen Baclofen Disease [facility] failure, failure, 00:00: Medica l initial initial 00 Center encounter encounter Narcotic Narcotic Disease Recurre [facility] withdrawal withdrawal nce 6-19 [facility] 00:00: Medical 00 [place] Failure, Failure, Disease Active [facility] baclofen baclofen 6-19 [facility] pump pump 00:00: Medical 00 [place] Radiculopa Radiculopa Disease Active [facility] thy, thy, 6-15 [facility] lumbar lumbar 00:00: Medical region region 00 Center Preop Preop Disease Active [facility] testing testing 6-15 [facility] 00:00: Medical 00 [place] Intractabl Intractabl Disease Active [facility] e back e back 6-13 [facility] pain pain 00:00: Medical [place] Intractabl Intractabl Disease Active [facility] e pain e pain 6-12 [facility] 00:00: Medical 00 [place] Chronic Chronic Disease Active [facility] pain pain 4-05 [facility] syndrome syndrome 00:00: Medica l 00 Center Pre-op Pre-op Disease Active [facility] testing testing 4-05 [facility] 00:00: Medical 00 Center Adhesive Adhesive Disease Active [facility] arachnoidi arachnoidi 08-14 [facility] tis tis 00:00: Medical 00 [place] Chronic Chronic Disease Active [facility] bilateral bilateral 01-23 [facility] s low back low back 00:00: Medica l pain pain 00 [place] Malfunctio Malfunctio Disease Recurre [facility] n of n of nce 08-17 [facility] spinal spinal 00:00: Medical cord cord 00 Center stimulator stimulator Lumbago Lumbago Disease Active Univers 04-30 ity of 00:00: [address] [id number] Erectile Problem Comm on dysfunctio Spirit n, - [facility] unspecifie [facility] erectile [facility] dysfunctio Medica l n type Center [id number] Erectile Problem Comm on dysfunctio Spirit n due to - CHI diseases [facility] [id number] Spinal Problem Common cord Spirit stimulator - CHI status [facility] [id number] Low Problem Common testostero Spirit ne in male - [facility] [id number] Pure Problem Common hyperchole Spirit sterolemia [facility] [id number] Chronic Problem Common pharyngiti Spirit s [facility] [id number] PEGGY Problem Common (generaliz Spirit ed anxiety - CHI disorder) [facility] [id number] Venous Problem Common insufficie [facility] ncy [facility] [id number] Other Problem Common chronic [facility] pain [facility] [id number] GERD Problem Common without Spirit esophagiti [facility] [id number] Recurrent Problem Com mon depression [facility] [id number] Unsteady Problem Commo n gait when Spirit walking [facility] [id number] Localized Problem Com mon edema [facility] No known No known Disease Metho di active active st problems problems Hospit a l Allergies, Adverse Reactions, Alerts Allergy Allergy Status Severity Reaction(s) Onset Inactive Treating Comm ents Source Name Type Date Date Clinician ADHESIVE Allergy Active Low Itching 2019-[address] [facility] TAPE 1-11 [facility] 00:00: Medical 00 Center Adhesive Drug Active Itching 2019-11 "breaks [facility] Tape Intolera -11 out", [facility] nce 00:00: blisters Medical 00 Center Other Propensi Active Itching 2019-11 "breaks Method i ty to 11 out", st adverse 00:00: blisters Hospita reaction 00 l s LORATADI Allergy Active Low Other [facility] NE 04-30 [facility] 00:00: Medical 00 Center LORATADI DRUG Active Unknown-Cmnt Un manolo NE INGREDI 04-30 ity of 00:00: [place] 00 [facility] Branch Loratadi Propensi Active Unknown - Uni vers ne ty to See comments 04-30 ity of adverse 00:00: [place] reaction 00 Medical s Branch NO KNOWN Allergy Active [facility] ALLERGIE [facility] 8890 Drug Active anaphylaxis Commo n allergy Spirit - [facility] Social History Social Habit Start Date Stop Date Quantity Comments Source History [facility] Alcohol [facility] History SDNM Alcohol [facility] History [facility] Transport [facility]Med [facility] Sexual orientation [facility] History of tobacco Smokes tobacco Un iversity of use daily [facility] Exposure to 2023-03-03 2023-03-[address] [facility] SARS-CoV-2 (event) 00:00:00 10:20:00 [facility] Alcohol intake 2023-03-01 2023-03-01 1 /d University 00:00:00 00:00:00 [facility] History [facility] 2022-05-07 2022-05-[address] [facility] Transport Med - In 00:00:00 00:00:00 [facility] the past 12 months, has lack of transportation kept you from medical appointments or from getting medications? History [facility] Housing 2022-05-07 2022-05-[address] [facility] Unable to Pay - In 00:00:00 00:00:00 [facility] the last 12 months, was there a time when you were not able to pay the mortgage or rent on time? History [facility] Housing 2022-05-07 2022-05-[address] [facility] Places Lived 00:00:00 00:00:00 Medical Cent er History [facility] Housing 2022-05-07 2022-05-[address] [facility] Homeless Last Year - 00:00:00 00:00:00 [facility] In the last 12 months, was there a time when you did not have a steady place to sleep or slept in a prison (including now)? Tobacco use and 2022-05-03 2022-05-03 User of smokeless [facility] exposure 00:00[facility]00 00:00:00 tobacco Medical Center Alcohol Comment 2022-05-03 2022-05-[address] [facility] k[facility] 00:00:00 00:00:00 Medical Center Tobacco Comment 2022-05-03 2022-05-[address] [facility] Yancy kes 00:00:00 00:00:00 cigarettes just Medical C enter vapes daily ; dips occassionally not often History SDOH Alcohol 2020-08-03 2020-08-03 Never [facility] Frequency - How 00:00:00 00:00:00 Medical C enter often do you have a drink containing alcohol? Sex [birth year] Sabian[employer] 00:00:00 00:00:00 Hospital Smoking Status Start Date Stop Date Source Tobacco smoking consumption [facility] unknown Never Smoker Common Spirit - [facility] Ce nter Smokes tobacco daily 2023-03-01 00:00:00 [facility] Occasional tobacco smoker 2022-05-03 00:00:00 [facility] Medications Ordered Filled Start Stop Current Ordering Indication Dosage Frequency Signature Comments Components Source Medication Medication Date Date Medication? Clinician (SIG) Name Name QUEtiapine Yes 200mg QD Take [address] (SEROquel) 6-22 tablet [facility] 200 MG 11:19: (200 mg Medical tablet 03 total) by Center mouth nightly. diazePAM Yes 10mg Take [address] [facility] (VALIUM) 10 6-22 tablet (10 [facility] kes MG tablet 11:19: mg total) Med ical 03 by mouth Center every 8 (eight) hours as needed for Anxiety. Max Daily Amount: 30 mg oxyCODONE-a Yes 1{tbl} Take [address] cetaminophe 6-22 tablet by Delmar rasmussen 11:19: mouth Medical (PERCOCET) 03 every 6 Center 10-325 mg (six) per tablet hours as needed for Pain. Max Daily Amount: 4 tablets QUEtiapine 2023-0 Yes 200mg QD Take [address] (SEROquel) 6-22 tablet [facility] 200 MG 11:19: (200 mg Medical tablet 03 total) by Center mouth nightly. diazePAM 2023-0 Yes 10mg Take [address] (VALIUM) 10 6-22 tablet (10 Yancy kes MG tablet 11:19: mg total) Med ical 03 by mouth Center every 8 (eight) hours as needed for Anxiety. Max Daily Amount: 30 mg oxyCODONE-a 2023-0 Yes 1{tbl} Take [address] cetaminophe 6-22 tablet by Delmar es n 11:19: mouth Medical (PERCOCET) 03 every 6 Center 10-325 mg (six) per tablet hours as needed for Pain. Max Daily Amount: 4 tablets QUEtiapine 2023-0 Yes 200mg QD Take [address] (SEROquel) 6-22 tablet [facility] 200 MG 11:19: (200 mg Medical tablet 03 total) by Center mouth nightly. diazePAM 2023-0 Yes 10mg Take [address] (VALIUM) 10 6-22 tablet (10 Yancy kes MG tablet 11:19: mg total) Med ical 03 by mouth Center every 8 (eight) hours as needed for Anxiety. Max Daily Amount: 30 mg oxyCODONE-a 3-0 Yes 1{tbl} Take [address] cetaminophe 6-22 tablet by [place]mar es n 11:19: mouth Medical (PERCOCET) 03 every 6 Center 10-325 mg (six) per tablet hours as needed for Pain. Max Daily Amount: 4 tablets QUEtiapine 2023-0 Yes 200mg QD Take [address] (SEROquel) 6-22 tablet [facility] 200 MG 11:19: (200 mg Medical tablet 03 total) by Center mouth nightly. diazePAM 2023-0 Yes 10mg Take [address] (VALIUM) 10 6-22 tablet (10 Yancy kes MG tablet 11:19: mg total) Med ical 03 by mouth Center every 8 (eight) hours as needed for Anxiety. Max Daily Amount: 30 mg oxyCODONE-a 2023-0 Yes 1{tbl} Take [address] cetaminophe 6-22 tablet by Delmar es n 11:19: mouth Medical (PERCOCET) 03 every 6 Center 10-325 mg (six) per tablet hours as needed for Pain. Max Daily Amount: 4 tablets QUEtiapine 2023-0 Yes 200mg QD Take [address] (SEROquel) 6-22 tablet [facility] 200 MG 11:19: (200 mg Medical tablet 03 total) by Center mouth nightly. diazePAM 2023-0 Yes 10mg Take [address] (VALIUM) 10 6-22 tablet (10 Yancy kes MG tablet 11:19: mg total) Med ical 03 by mouth Center every 8 (eight) hours as needed for Anxiety. Max Daily Amount: 30 mg oxyCODONE-a 2023-0 Yes 1{tbl} Take [address] cetaminophe 6-22 tablet by [place]mar es n 11:19: mouth Medical (PERCOCET) 03 every 6 Center 10-325 mg (six) per tablet hours as needed for Pain. Max Daily Amount: 4 tablets QUEtiapine 3-0 Yes 200mg QD Take [address] (SEROquel) 6-22 tablet [facility] 200 MG 11:19: (200 mg Medical tablet 03 total) by Center mouth nightly. diazePAM 3-0 Yes 10mg Take [address] (VALIUM) 10 6-22 tablet (10 Yancy kes MG tablet 11:19: mg total) Med ical 03 by mouth Center every 8 (eight) hours as needed for Anxiety. Max Daily Amount: 30 mg oxyCODONE-a 2022-0 Yes 1{tbl} Take [address] cetaminophe 6-22 tablet by Delmar es n 11:19: mouth Medical (PERCOCET) 03 every 6 Center 10-325 mg (six) per tablet hours as needed for Pain. Max Daily Amount: 4 tablets HYDROmorpho 3-[address] [facility] ne 0.2 6-21 intravenou [facility] mg/mL in 11:20: sly Medical sodium 06 continuous Center chloride Pt to 0.9% (NS) verify dos infusion on day of 100 mL surgery. On pain pump. hydrOXYzine 2022-0 Yes 25mg [address] (ATARAX) 25 6-21 (25 mg [facility] MG tablet 11:20: total) Medica l 06 every 6 Center (six) hours as needed for Itching. TESTOSTERON 3-0 Yes 200mg/m Q14D Inject [address] E CYPIONATE 6-21 L mg/mL [facility] IM 11:20: intramuscu Medical 06 [facility] Center every 14 (fourteen) days. HYDROmorpho 3-[address] [facility] ne 0.2 6-21 intravenou [facility] mg/mL in 11:20: sly Medical sodium 06 continuous Center chloride Pt to 0.9% (NS) verify dos infusion on day of 100 mL surgery. On pain pump. hydrOXYzine 3-0 Yes 25mg [address] (ATARAX) 25 6-21 (25 mg [facility] MG tablet 11:20: total) Medica l 06 every 6 Center (six) hours as needed for Itching. TESTOSTERON 2022-0 Yes 200mg/m Q14D Inject [address] E CYPIONATE 6-21 L mg/mL [facility] IM 11:20: intramuscu Medical [address] [place] [address] Center every 14 (fourteen) days. HYDROmorpho 3-[address] [facility] ne 0.2 6-21 intravenou [facility] mg/mL in 11:20: sly Medical sodium 06 continuous Center chloride Pt to 0.9% (NS) verify dos infusion on day of 100 mL surgery. On pain pump. hydrOXYzine 3-0 Yes 25mg [address] (ATARAX) 25 6-21 (25 mg [facility] MG tablet 11:20: total) Medica l 06 every 6 Center (six) hours as needed for Itching. TESTOSTERON 3-0 Yes 200mg/m Q14D Inject [address] E CYPIONATE 6-21 L mg/mL [facility] IM 11:20: intramuscu Medical 06 larly Center every 14 (fourteen) days. HYDROmorpho 2023-[address] [facility] ne 0.2 6-21 intravenou [facility] mg/mL in 11:20: sly Medical sodium 06 continuous Center chloride Pt to 0.9% (NS) verify dos infusion on day of 100 mL surgery. On pain pump. hydrOXYzine 2023-0 Yes 25mg [address] (ATARAX) 25 6-21 (25 mg [facility] MG tablet 11:20: total) Medica l 06 every 6 Center (six) hours as needed for Itching. TESTOSTERON 3-0 Yes 200mg/m Q14D Inject [address] E CYPIONATE 6-21 L mg/mL [facility] IM 11:20: intramuscu Medical [address] [place] [address] Center every 14 (fourteen) days. HYDROmorpho 2023-[address] [facility] ne 0.2 6-21 intravenou [facility] mg/mL in 11:20: sly Medical sodium 06 continuous Center chloride Pt to 0.9% (NS) verify dos infusion on day of 100 mL surgery. On pain pump. hydrOXYzine 2023-0 Yes 25mg [address] (ATARAX) 25 6-21 (25 mg [facility] MG tablet 11:20: total) Medica l 06 every 6 Center (six) hours as needed for Itching. TESTOSTERON 3-0 Yes 200mg/m Q14D Inject [address] E CYPIONATE 6-21 L mg/mL [facility] IM 11:20: intramuscu Medical [address] [place] [address] Center every 14 (fourteen) days. HYDROmorpho 2023-[address] [facility] ne 0.2 6-21 intravenou [facility] mg/mL in 11:20: sly Medical sodium 06 continuous Center chloride Pt to 0.9% (NS) verify dos infusion on day of 100 mL surgery. On pain pump. hydrOXYzine 3-0 Yes 25mg [address] (ATARAX) 25 6-21 (25 mg [facility] MG tablet 11:20: total) Medica l 06 every 6 Center (six) hours as needed for Itching. TESTOSTERON 3-0 Yes 200mg/m Q14D Inject [address] E CYPIONATE 6-21 L mg/mL [facility] IM 11:20: intramuscu Medical [address] [place] [address] Center every 14 (fourteen) days. baclofen 2023-0 2023- No 10mg Q.25D Take 1 [facility] (LIORESAL) 6-21 07-21 tablet (10 Yancy kes 10 MG 00:00: 23:59 mg total) Medica l tablet 00 :00 by mouth 4 Center (four) times daily for 30 days. baclofen 2023-0 2023- No 10mg Q.25D Take 1 [facility] (LIORESAL) 6-21 07-21 tablet (10 Yancy kes 10 MG 00:00: 23:59 mg total) Medica l tablet 00 :00 by mouth 4 Center (four) times daily for 30 days. baclofen 2023-0 2023- No 10mg Q.25D Take 1 [facility] (LIORESAL) 6-14 06-21 tablet (10 Yancy kes 10 MG 00:00: 23:59 mg total) Medica l tablet 00 :00 by mouth 4 Center (four) times daily for 30 days. baclofen 2023-0 2023- No 10mg Q.25D Take 1 [facility] (LIORESAL) 6-14 06-21 tablet (10 Yancy kes 10 MG 00:00: 23:59 mg total) Medica l tablet 00 :00 by mouth 4 Center (four) times daily for 30 days. baclofen 2023-0 2023- No 10mg Q.25D Take 1 [facility] (LIORESAL) 6-14 06- tablet (10 Yancy kes 10 MG 00:00: 23:59 mg total) Medica l tablet 00 :00 by mouth 4 Center (four) times daily for 30 days. baclofen 2023-0 2023- No 10mg Q.25D Take 1 [facility] (LIORESAL) -14 06- tablet (10 Yancy kes 10 MG 00:00: 23:59 mg total) Medica l tablet 00 :00 by mouth 4 Center (four) times daily for 30 days. promethazin 2023-0 2023- No 25mg Take [address] [facility] e -15 05-28 tablet (25 [facility] (PHENERGAN) 00:00: 23:59 mg total) Medical 25 MG 00 :00 by mouth Center tablet every 6 (six) hours as needed for Nausea for up to 7 days. promethazin 2023-0 2023- No 25mg Take [address] [facility] e -15 05-28 tablet (25 [facility] (PHENERGAN) 00:00: 23:59 mg total) Medical 25 MG 00 :00 by mouth Center tablet every 6 (six) hours as needed for Nausea for up to 7 days. promethazin 2023-0 2023- No 25mg Take [address] [facility] e -15 05-28 tablet (25 [facility] (PHENERGAN) 00:00: 23:59 mg total) Medical 25 MG 00 :00 by mouth Center tablet every 6 (six) hours as needed for Nausea for up to 7 days. promethazin 2023-0 2023- No 25mg Take [address] [facility] e 6-21 -28 tablet (25 [facility] (PHENERGAN) 00:00: 23:59 mg total) Medical 25 MG 00 :00 by mouth Center tablet every 6 (six) hours as needed for Nausea for up to 7 days. promethazin 2022-0 2023- No 25mg Take [address] [facility] e 6-15 05-28 tablet (25 [facility] (PHENERGAN) 00:00: 23:59 mg total) Medical 25 MG 00 :00 by mouth Center tablet every 6 (six) hours as needed for Nausea for up to 7 days. promethazin 2022-0 2023- No 25mg Take [address] [facility] e 6-15 05-28 tablet (25 [facility] (PHENERGAN) 00:00: 23:59 mg total) Medical 25 MG 00 :00 by mouth Center tablet every 6 (six) hours as needed for Nausea for up to 7 days. vortioxetin 2022-0 2022- No 10mg QD Take [address] [facility] e 6-13 05-19 tablet (10 [facility] (Trintellix 10:47: 00:00 mg total) Medical ) 10 mg Tab 49 :00 by mouth Cent er every evening. vortioxetin 2022-0 2022- No 10mg QD Take [address] [facility] e 6-13 05-19 tablet (10 [facility] (Trintellix 10:47: 00:00 mg total) Medical ) 10 mg Tab 49 :00 by mouth Cent er every evening. vortioxetin 2022-0 2022- No 10mg QD Take [address] [facility] e 6-13 05-19 tablet (10 [facility] (Trintellix 10:47: 00:00 mg total) Medical ) 10 mg Tab 49 :00 by mouth Cent er every evening. vortioxetin 2022-0 3- No 10mg QD Take [address] [facility] e 6-13 05-19 tablet (10 [facility] (Trintellix 10:47: 00:00 mg total) Medical ) 10 mg Tab 49 :00 by mouth Cent er every evening. vortioxetin 2022-0 3- No 10mg QD Take [address] [facility] e 6-19 -19 tablet (10 [facility] (Trintellix 10:47: 00:00 mg total) Medical ) 10 mg Tab 49 :00 by mouth Cent er every evening. vortioxetin 2022-0 2022- No 10mg QD Take [address] e 6-19 06-19 tablet (10 [facility] (Trintellix 10:47: 00:00 mg total) Medical ) 10 mg Tab 49 :00 by mouth Cent er every evening. quetiapine 2022-0 3- No 150mg Take [address] fumarate 6-19 06-19 mg by [facility] (QUETIAPINE 10:47: 00:00 mouth. Med ical ORAL) 33 :00 [place] quetiapine 2022-0 3- No 150mg Take [address] fumarate 6-19 06-19 mg by [facility] (QUETIAPINE 10:47: 00:00 mouth. Med ical ORAL) 33 :00 [place] quetiapine 2022-0 3- No 150mg Take [address] fumarate 6-19 06-19 mg by [facility] (QUETIAPINE 10:47: 00:00 mouth. Med ical ORAL) 33 :00 [place] quetiapine 2022-0 3- No 150mg Take [address] fumarate 6-19 06-19 mg by [facility] (QUETIAPINE 10:47: 00:00 mouth. Med ical ORAL) 33 :00 [place] quetiapine 3-0 3- No 150mg Take [address] fumarate 6-19 06-19 mg by [facility] (QUETIAPINE 10:47: 00:00 mouth. Med ical ORAL) 33 :00 [place] quetiapine 3-0 3- No 150mg Take [address] fumarate 6-19 06-19 mg by [facility] (QUETIAPINE 10:47: 00:00 mouth. Med ical ORAL) 33 :00 [place] HYDROmorpho 3-0 3- No 4mg Take [address] [facility] [address] ne 6-19 06-19 tablet (4 [facility] (DILAUDID) 10:46: 00:00 mg total) M edical 4 MG tablet 36 :00 by mouth Cent er every 4 (four) hours as needed for Pain. HYDROmorpho 2022-0 3- No 4mg Take [address] [facility] ne 6-19 06-19 tablet (4 [facility] (DILAUDID) 10:46: 00:00 mg total) M edical 4 MG tablet 36 :00 by mouth Cent er every 4 (four) hours as needed for Pain. HYDROmorpho 2023-0 2023- No 4mg Take [address] [facility] [address] ne 6-19 06-19 tablet (4 [facility] (DILAUDID) 10:46: 00:00 mg total) M edical 4 MG tablet 36 :00 by mouth Cent er every 4 (four) hours as needed for Pain. HYDROmorpho 2023-0 2023- No 4mg Take [address] [facility] ne 6-19 06-19 tablet (4 [facility] (DILAUDID) 10:46: 00:00 mg total) M edical 4 MG tablet 36 :00 by mouth Cent er every 4 (four) hours as needed for Pain. HYDROmorpho 2023-0 2023- No 4mg Take [address] [facility] [address] ne 6-19 06-19 tablet (4 [facility] (DILAUDID) 10:46: 00:00 mg total) M edical 4 MG tablet 36 :00 by mouth Cent er every 4 (four) hours as needed for Pain. HYDROmorpho 2023-0 2023- No 4mg Take [address] [facility] [address] ne 6-19 06-19 tablet (4 [facility] (DILAUDID) 10:46: 00:00 mg total) M edical 4 MG tablet 36 :00 by mouth Cent er every 4 (four) hours as needed for Pain. HYDROcodone 3-0 2023- No 1{tbl} Take [address] -acetaminop 6-19 06-19 tablet by Yancy lopez (NORCO 10:46: 00:00 mouth Medic al 10-325) 26 :00 every 6 Center 10-325 mg (six) per tablet hours as needed for Pain. HYDROcodone 2023-0 2023- No 1{tbl} Take [address] -acetaminop 6-19 06-19 tablet by Yancy lopez (NORCO 10:46: 00:00 mouth Medic al 10-325) 26 :00 every 6 Center 10-325 mg (six) per tablet hours as needed for Pain. HYDROcodone 3-0 2023- No 1{tbl} Take [address] -acetaminop 6-19 06-19 tablet by Yancy kes hen (NORCO 10:46: 00:00 mouth Medic al 10-325) 26 :00 every 6 Center 10-325 mg (six) per tablet hours as needed for Pain. HYDROcodone 2022-0 3- No 1{tbl} Take [address] -acetaminop 6-19 -19 tablet by Yancy kaur hen (NORCO 10:46: 00:00 mouth Medic al 10-325) 26 :00 every 6 Center 10-325 mg (six) per tablet hours as needed for Pain. HYDROcodone 2022-0 2022- No 1{tbl} Take [address] -acetaminop 6-19 -19 tablet by Yancy kaur hen (NORCO 10:46: 00:00 mouth Medic al 10-325) 26 :00 every 6 Center 10-325 mg (six) per tablet hours as needed for Pain. HYDROcodone 2022-0 2022- No 1{tbl} Take [address] -acetaminop 6-13 05-19 tablet by Yancy lopez (NORCO 10:46: 00:00 mouth Medic al 10-325) 26 :00 every 6 Center 10-325 mg (six) per tablet hours as needed for Pain. divalproex 3-0 2022- No 250mg Q.5D Take [address] (DEPAKOTE) 05-13 tablet [facility] 250 MG EC 10:45: 00:00 (250 mg Medi lino tablet 58 :00 total) by Center mouth in the morning and 1 tablet (250 mg total) before bedtime. divalproex 2022-0 2022- No 250mg Q.5D Take [address] (DEPAKOTE) 05-13 tablet [facility] 250 MG EC 10:45: 00:00 (250 mg Medi lino tablet 58 :00 total) by Center mouth in the morning and 1 tablet (250 mg total) before bedtime. divalproex 3-0 3- No 250mg Q.5D Take [address] (DEPAKOTE) -13 05-19 tablet [facility] 250 MG EC 10:45: 00:00 (250 mg Medi lino tablet 58 :00 total) by Center mouth in the morning and 1 tablet (250 mg total) before bedtime. divalproex 2023-0 2023- No 250mg Q.5D Take [address] (DEPAKOTE) 05-13 tablet [facility] 250 MG EC 10:45: 00:00 (250 mg Medi lino tablet 58 :00 total) by Center mouth in the morning and 1 tablet (250 mg total) before bedtime. divalproex 2023-0 2023- No 250mg Q.5D Take [address] (DEPAKOTE) 05-13 tablet [facility] 250 MG EC 10:45: 00:00 (250 mg Medi lino tablet 58 :00 total) by Center mouth in the morning and 1 tablet (250 mg total) before bedtime. divalproex 2022-0 2023- No 250mg Q.5D Take [address] (DEPAKOTE) 05-13 tablet [facility] 250 MG EC 10:45: 00:00 (250 mg Medi lino tablet 58 :00 total) by Center mouth in the morning and 1 tablet (250 mg total) before bedtime. diclofenac 2022-0 2023- No 75mg Q.5D Take [address] [facility] (VOLTAREN) 05-13 tablet (75 Yancy kes 75 MG EC 10:45: 00:00 mg total) Med ical tablet 49 :00 by mouth Center in the morning and 1 tablet (75 mg total) before bedtime. diclofenac 2022-0 2023- No 75mg Q.5D Take [address] [facility] (VOLTAREN) 05-13 tablet (75 Yancy kes 75 MG EC 10:45: 00:00 mg total) Med ical tablet 49 :00 by mouth Center in the morning and 1 tablet (75 mg total) before bedtime. diclofenac 2022-0 2023- No 75mg Q.5D Take [address] [facility] (VOLTAREN) 05-13 tablet (75 Yancy kes 75 MG EC 10:45: 00:00 mg total) Med ical tablet 49 :00 by mouth Center in the morning and 1 tablet (75 mg total) before bedtime. diclofenac 3-0 2023- No 75mg Q.5D Take [address] [facility] (VOLTAREN) 05-13 tablet (75 Yancy kes 75 MG EC 10:45: 00:00 mg total) Med ical tablet 49 :00 by mouth Center in the morning and 1 tablet (75 mg total) before bedtime. diclofenac 2023-0 2023- No 75mg Q.5D Take [address] [facility] (VOLTAREN) 6-19 06-19 tablet (75 Yancy kes 75 MG EC 10:45: 00:00 mg total) Med ical tablet 49 :00 by mouth Center in the morning and 1 tablet (75 mg total) before bedtime. diclofenac 2023-0 2023- No 75mg Q.5D Take [address] [facility] (VOLTAREN) 6-19 06-19 tablet (75 Yancy kes 75 MG EC 10:45: 00:00 mg total) Med ical tablet 49 :00 by mouth Center in the morning and 1 tablet (75 mg total) before bedtime. cyclobenzap 2023-0 2023- No 10mg Take [address] [facility] rine 6-19 06-19 tablet (10 [facility] (FLEXERIL) 10:45: 00:00 mg total) M edical 10 MG 30 :00 by mouth 3 Center tablet (three) times daily as needed for Muscle spasms. cyclobenzap 2023-0 2023- No 10mg Take [address] [facility] rine 6-19 06-19 tablet (10 [facility] (FLEXERIL) 10:45: 00:00 mg total) M edical 10 MG 30 :00 by mouth 3 Center tablet (three) times daily as needed for Muscle spasms. cyclobenzap 2023-0 2023- No 10mg Take [address] [facility] rine 6-19 06-19 tablet (10 [facility] (FLEXERIL) 10:45: 00:00 mg total) M edical 10 MG 30 :00 by mouth 3 Center tablet (three) times daily as needed for Muscle spasms. cyclobenzap 2023-0 2023- No 10mg Take [address] [facility] rine 6-19 06-19 tablet (10 [facility] (FLEXERIL) 10:45: 00:00 mg total) M edical 10 MG 30 :00 by mouth 3 Center tablet (three) times daily as needed for Muscle spasms. cyclobenzap 2023-0 2023- No 10mg Take [address] [facility] rine 6-19 06-19 tablet (10 [facility] (FLEXERIL) 10:45: 00:00 mg total) M edical 10 MG 30 :00 by mouth 3 Center tablet (three) times daily as needed for Muscle spasms. cyclobenzap 2023-0 2023- No 10mg Take [address] [facility] rine 05-13 tablet (10 [facility] (FLEXERIL) 10:45: 00:00 mg total) M edical 10 MG 30 :00 by mouth 3 Center tablet (three) times daily as needed for Muscle spasms. busPIRone 2022- No generalized 10mg Q.[id number] Take [address] [facility] (BUSPAR) 10 05-13 anxiety [id number] tablet (10 [facility] tablet 10:45: 00:00 disorder 3D mg total) Medical 17 :00 by mouth Center in the morning and 1 tablet (10 mg total) at noon and 1 tablet (10 mg total) in the evening. busPIRone 2022- No generalized 10mg Q.[id number] Take [address] [facility] (BUSPAR) 10 05-13 anxiety [id number] tablet (10 [facility] tablet 10:45: 00:00 disorder 3D mg total) Medical 17 :00 by mouth Center in the morning and 1 tablet (10 mg total) at noon and 1 tablet (10 mg total) in the evening. busPIRone 2022- No generalized 10mg Q.[id number] Take [address] [facility] (BUSPAR) 10 05-13 anxiety [id number] tablet (10 [facility] tablet 10:45: 00:00 disorder 3D mg total) Medical 17 :00 by mouth Center in the morning and 1 tablet (10 mg total) at noon and 1 tablet (10 mg total) in the evening. busPIRone 2022- No generalized 10mg Q.[id number] Take [address] [facility] (BUSPAR) 10 05-13 anxiety [id number] tablet (10 [facility] tablet 10:45: 00:00 disorder 3D mg total) Medical 17 :00 by mouth Center in the morning and 1 tablet (10 mg total) at noon and 1 tablet (10 mg total) in the evening. busPIRone 2022- No generalized 10mg Q.[id number] Take [address] [facility] (BUSPAR) 10 05-13 anxiety [id number] tablet (10 [facility] tablet 10:45: 00:00 disorder 3D mg total) Medical 17 :00 by mouth Center in the morning and 1 tablet (10 mg total) at noon and 1 tablet (10 mg total) in the evening. busPIRone 2022-0 2022- No generalized 10mg Q.[id number] Take [address] [facility] (BUSPAR) 10 05-13-19 anxiety [id number] tablet (10 [facility] tablet 10:45: 00:00 disorder 3D mg total) Medical 17 :00 by mouth Center in the morning and 1 tablet (10 mg total) at noon and 1 tablet (10 mg total) in the evening. traZODone 2022-0 3- No 100mg QD Take [address] [facility] (DESYREL) 05-13 tablet [facility] 100 MG 10:45: 00:00 (100 mg Medical tablet 11 :00 total) by Center mouth nightly. traZODone 2022-0 2022- No 100mg QD Take [address] [facility] (DESYREL) 05-13 tablet [facility] 100 MG 10:45: 00:00 (100 mg Medical tablet 11 :00 total) by Center mouth nightly. traZODone 2022-0 3- No 100mg QD Take [address] [facility] (DESYREL) 05-13 tablet [facility] 100 MG 10:45: 00:00 (100 mg Medical tablet 11 :00 total) by Center mouth nightly. traZODone 3-0 3- No 100mg QD Take [address] [facility] (DESYREL) 05-13 tablet [facility] 100 MG 10:45: 00:00 (100 mg Medical tablet 11 :00 total) by Center mouth nightly. traZODone 3-0 3- No 100mg QD Take [address] [facility] (DESYREL) 05-13 tablet [facility] 100 MG 10:45: 00:00 (100 mg Medical tablet 11 :00 total) by Center mouth nightly. traZODone 2022-0 3- No 100mg QD Take [address] [facility] (DESYREL) 05-13 tablet [facility] 100 MG 10:45: 00:00 (100 mg Medical tablet 11 :00 total) by Center mouth nightly. diclofenac 3-0 Yes 75mg Q.5D [facility] 4-[facility] tablet (75 [place] 75 MG EC 16:36: mg total) Medi lino tablet 03 by mouth Center in the morning and 1 tablet (75 mg total) before bedtime. divalproex 2023-0 Yes 250mg Q.5D Take [address] [facility] (DEPAKOTE) 4-20 tablet [facility] 250 MG EC 16:36: (250 mg Medic al tablet 03 total) by Center mouth in the morning and 1 tablet (250 mg total) before bedtime. traZODone 2023-0 Yes 100mg QD Take [facility] 4-20 tablet [facility] 100 MG 16:36: (100 mg Medical tablet 03 total) by Center mouth nightly. quetiapine 2023-0 Yes 150mg Take [address] [facility] [address] [facility] fumarate 4-20 mg by [facility] (QUETIAPINE 16:36: mouth. Medi lino ORAL) 03 Center HYDROcodone 3-0 Yes 1{tbl} Take [address] [facility] [address] [facility] -acetaminop 4-20 tablet by [place] [facility] (NORCO 16:36: mouth Medica l 10-325) 03 every 6 Center 10-325 mg (six) per tablet hours as needed for Pain. HYDROmorpho 2023-[address] [facility] ne 0.2 4-20 intravenou [facility] mg/mL in 16:36: sly Medical sodium 03 continuous Center chloride Pt to 0.9% (NS) verify dos infusion on day of 100 mL surgery. On pain pump. diclofenac 2023-0 Yes 75mg Q.5D Take [facility] 4-20 tablet (75 [place] [facility] 75 MG EC 16:36: mg total) Medi lino tablet 03 by mouth Center in the morning and 1 tablet (75 mg total) before bedtime. divalproex 2023-0 Yes 250mg Q.5D Take [address] [facility] (DEPAKOTE) 4-20 tablet [facility] 250 MG EC 16:36: (250 mg Medic al tablet 03 total) by Center mouth in the morning and 1 tablet (250 mg total) before bedtime. traZODone 2023-0 Yes 100mg QD Take [facility] (DES[facility] 4-20 tablet [facility] 100 MG 16:36: (100 mg Medical tablet 03 total) by Center mouth nightly. quetiapine 2023-0 Yes 150mg Take [address] [facility] [address] [facility] fumarate 4-20 mg by [facility] (QUETIAPINE 16:36: mouth. Medi lino ORAL) 03 Center HYDROcodone 2022-0 Yes 1{tbl} Take [address] [facility] [address] [facility] -acetaminop 4-20 tablet by [place] [facility] (NORCO 16:36: mouth Medica l 10-325) 03 every 6 Center 10-325 mg (six) per tablet hours as needed for Pain. HYDROmorpho 2022-[address] [facility] ne 0.2 4-20 intravenou [facility] mg/mL in 16:36: sly Medical sodium 03 continuous Center chloride Pt to 0.9% (NS) verify dos infusion on day of 100 mL surgery. On pain pump. diclofenac 2022-0 Yes 75mg Q.5D Take [facility] ([facility] 4-20 tablet (75 [place] [facility] 75 MG EC 16:36: mg total) Medi lino tablet 03 by mouth Center in the morning and 1 tablet (75 mg total) before bedtime. divalproex 2022-0 Yes 250mg Q.5D Take [address] [facility] (DEPAKOTE) 4-20 tablet [facility] 250 MG EC 16:36: (250 mg Medic al tablet 03 total) by Center mouth in the morning and 1 tablet (250 mg total) before bedtime. traZODone 2022-0 Yes 100mg QD Take [facility] (DES[facility] 4-20 tablet [facility] 100 MG 16:36: (100 mg Medical tablet 03 total) by Center mouth nightly. quetiapine 2022-0 Yes 150mg Take [address] [facility] [address] [facility] fumarate 4-20 mg by [facility] (QUETIAPINE 16:36: mouth. Medi lino ORAL) 03 Center HYDROcodone 2022-0 Yes 1{tbl} Take [address] [facility] [address] [facility] -acetaminop 4-20 tablet by [place] [facility] (NORCO 16:36: mouth Medica l 10-325) 03 every 6 Center 10-325 mg (six) per tablet hours as needed for Pain. HYDROmorpho 2022-[address] [facility] ne 0.2 4-20 intravenou [facility] mg/mL in 16:36: sly Medical sodium 03 continuous Center chloride Pt to 0.9% (NS) verify dos infusion on day of 100 mL surgery. On pain pump. propranoloL 2022-0 2023- No 10mg QD Take [address] [facility] (INDERAL) 4-20 04-19 tablet (10 [place] [facility] 10 MG 16:36: 00:00 mg total) Medica l tablet 03 :00 by mouth Center in the morning. propranoloL 2022-2022- No 10mg QD Take [address] [facility] (INDERAL) 4-20 04-19 tablet (10 [place] [facility] 10 MG 16:36: 00:00 mg total) Medica l tablet 03 :00 by mouth Center in the morning. propranoloL 2022-2022- No 10mg QD Take [address] [facility] (INDERAL) 4-20 04-19 tablet (10 [place] [facility] 10 MG 16:36: 00:00 mg total) Medica l tablet 03 :00 by mouth Center in the morning. propranoloL 2022- No 10mg QD Take [address] [facility] (INDERAL) 4-20 04-19 tablet (10 [place] [facility] 10 MG 16:36: 00:00 mg total) Medica l tablet 03 :00 by mouth Center in the morning. propranoloL 2022- No 10mg QD Take [address] [facility] (INDERAL) 4-20 04-19 tablet (10 [place] [facility] 10 MG 16:36: 00:00 mg total) Medica l tablet 03 :00 by mouth Center in the morning. propranoloL 2022- No 10mg QD Take [address] [facility] (INDERAL) 4-20 04-19 tablet (10 [place] [facility] 10 MG 16:36: 00:00 mg total) Medica l tablet 03 :00 by mouth Center in the morning. propranoloL 2022-0 2022- No 10mg QD Take [address] [facility] (INDERAL) 4-20 04-19 tablet (10 [place] [facility] 10 MG 16:36: 00:00 mg total) Medica l tablet 03 :00 by mouth Center in the morning. propranoloL 2022-0 2022- No 10mg QD Take [address] [facility] (INDERAL) 4-20 04-19 tablet (10 [place] [facility] 10 MG 16:36: 00:00 mg total) Medica l tablet 03 :00 by mouth Center in the morning. propranoloL 2022-0 2022- No 10mg QD Take [address] [facility] (INDERAL) 4-20 04-19 tablet (10 [place] [facility] 10 MG 16:36: 00:00 mg total) Medica l tablet 03 :00 by mouth Center in the morning. hydrOXYzine 2023-0 Yes Q.25D 4 (four) [facility] (ATARAX) 25 4-19 times [facility] MG tablet 17:41: daily. Medica l 12 Center busPIRone 2023-0 Yes generalized 10mg Q.[id number] Take [address] [facility] (BUSPAR) 10 4-19 anxiety [id number] tablet (10 [facility] MG tablet 17:41: disorder 3D mg total) Medical 12 by mouth Center in the morning and 1 tablet (10 mg total) at noon and 1 tablet (10 mg total) in the evening. cyclobenzap 2023-0 Yes 10mg Take [address] [facility]ine 4-19 tablet (10 [facility] (FLEXERIL) 17:41: mg total) Me dical 10 MG 12 by mouth 3 Center tablet (three) times daily as needed for Muscle spasms. vortioxetin 2023-0 Yes 10mg QD Take [address] [facility] e 4-19 tablet (10 [facility] (Trintellix 17:41: mg total) M edical ) 10 mg Tab 12 by mouth Cent er every evening. TESTOSTERON 2023-0 Yes 200mg/m Q14D Inject [address] [facility] E CYPIONATE 4-19 L mg/mL [facility] IM 17:41: [facility] Medical 12 [facility] Center every 14 (fourteen) days. HYDROmorpho 2023-0 Yes 4mg Take [address] [facility] ne 4-19 tablet (4 [facility] (DILAUDID) 17:41: mg total) Me dical 4 MG tablet 12 by mouth Cent er every 4 (four) hours as needed for Pain. hydrOXYzine 2023-0 Yes Q.25D 4 (four) [facility] (ATARAX) 25 4-19 times [facility] MG tablet 17:41: daily. Medica l 12 Center busPIRone 2023-0 Yes generalized 10mg Q.[id number] Take [address] [facility] (BUSPAR) 10 4-19 anxiety [id number] tablet (10 [facility] MG tablet 17:41: disorder 3D mg total) Medical 12 by mouth Center in the morning and 1 tablet (10 mg total) at noon and 1 tablet (10 mg total) in the evening. cyclobenzap 2023-0 Yes 10mg Take [address] [facility] rine 4-19 tablet (10 [facility] (FLEXERIL) 17:41: mg total) Me dical 10 MG 12 by mouth 3 Center tablet (three) times daily as needed for Muscle spasms. vortioxetin 2023-0 Yes 10mg QD Take [address] [facility] e 4-19 tablet (10 [facility] (Trintellix 17:41: mg total) M edical ) 10 mg Tab 12 by mouth Cent er every evening. TESTOSTERON 2023-0 Yes 200mg/m Q14D Inject [address] [facility] E CYPIONATE 4-19 L mg/mL [facility] 17:41: intram[facility] Medical 12 larly Center every 14 (fourteen) days. HYDROmorpho 2023-0 Yes 4mg Take [address] [facility] ne 4-19 tablet (4 [facility] (DILAUDID) 17:41: mg total) Me dical 4 MG tablet 12 by mouth Cent er every 4 (four) hours as needed for Pain. hydrOXYzine 3-0 Yes Q.25D 4 (four) [facility] (ATARAX) 25 4-19 times [facility] MG tablet 17:41: daily. Medica l 12 Center busPIRone 3-0 Yes generalized 10mg Q.[id number] Take [address] [facility] (BUSPAR) 10 4-19 anxiety [id number] tablet (10 [facility] MG tablet 17:41: disorder 3D mg total) Medical 12 by mouth Center in the morning and 1 tablet (10 mg total) at noon and 1 tablet (10 mg total) in the evening. cyclobenzap 2023-0 Yes 10mg Take [address] [facility] rine 4-19 tablet (10 [facility] (FLEXERIL) 17:41: mg total) Me dical 10 MG 12 by mouth 3 Center tablet (three) times daily as needed for Muscle spasms. vortioxetin 2023-0 Yes 10mg QD Take [address] [facility] e 4-19 tablet (10 [facility] (Trintellix 17:41: mg total) M edical ) 10 mg Tab 12 by mouth Cent er every evening. TESTOSTERON 2023-0 Yes 200mg/m Q14D Inject [address] [facility] E CYPIONATE 4-19 L mg/mL [facility] 17[facility]41[facility]teen[facility] days. HYDROmorpho 2023-0 Yes 4mg Take [address] [facility] ne 4-19 tablet (4 [facility] (DILAUDID) 17:41: mg total) Me dical 4 MG tablet 12 by mouth Cent er every 4 (four) hours as needed for Pain. oxyCODONE-a 2022- No 1{tbl} Take [address] cetaminophe 4-13 03-29 tablet by Yancy rasmussen 00:00: 23:59 mouth Medical (PERCOCET) 00 :00 every 4 Center 10-325 mg (four) per tablet hours as needed for Pain for up to 10 days . Max Daily Amount: 6 tablets oxyCODONE-a 2022- No 1{tbl} Take [address] cetaminophe 4-19 -29 tablet by Yancy rasmussen 00:00: 23:59 mouth Medical (PERCOCET) 00 :00 every 4 Center 10-325 mg (four) per tablet hours as needed for Pain for up to 10 days . Max Daily Amount: 6 tablets oxyCODONE-a 2022- No 1{tbl} Take [address] cetaminophe -13 03- tablet by Yancy rasmussen 00:00: 23:59 mouth Medical (PERCOCET) 00 :00 every 4 Center 10-325 mg (four) per tablet hours as needed for Pain for up to 10 days . Max Daily Amount: 6 tablets oxyCODONE-a 2022- No 1{tbl} Take [address] cetaminophe 4-13 03- tablet by Yancy rasmussen 00:00: 23:59 mouth Medical (PERCOCET) 00 :00 every 4 Center 10-325 mg (four) per tablet hours as needed for Pain for up to 10 days . Max Daily Amount: 6 tablets oxyCODONE-a 2022- No 1{tbl} Take [address] cetaminophe 4-19 -29 tablet by Yancy rasmussen 00:00: 23:59 mouth Medical (PERCOCET) 00 :00 every 4 Center 10-325 mg (four) per tablet hours as needed for Pain for up to 10 days . Max Daily Amount: 6 tablets oxyCODONE-a 2022- No 1{tbl} Take [address] cetaminophe -13 03-29 tablet by Yancy kaur n 00:00: 23:59 mouth Medical (PERCOCET) 00 :00 every 4 Center 10-325 mg (four) per tablet hours as needed for Pain for up to 10 days . Max Daily Amount: 6 tablets oxyCODONE-a 2022- No 1{tbl} Take [address] cetaminophe 4-13 03-29 tablet by Yancy kaur n 00:00: 23:59 mouth Medical (PERCOCET) 00 :00 every 4 Center 10-325 mg (four) per tablet hours as needed for Pain for up to 10 days . Max Daily Amount: 6 tablets oxyCODONE-a 2022- No 1{tbl} Take [address] cetaminophe -13 03-29 tablet by Yancy kaur n 00:00: 23:59 mouth Medical (PERCOCET) 00 :00 every 4 Center 10-325 mg (four) per tablet hours as needed for Pain for up to 10 days . Max Daily Amount: 6 tablets oxyCODONE-a 2022- No 1{tbl} Take [address] cetaminophe -13 03-29 tablet by Yancy kaur n 00:00: 23:59 mouth Medical (PERCOCET) 00 :00 every 4 Center 10-325 mg (four) per tablet hours as needed for Pain for up to 10 days . Max Daily Amount: 6 tablets Testosteron Testosteron No 1{ml} Testostero e Cypionate e Cypionate 4-17 ne 200 MG/ML 200 MG/ML 00:00: Cypionate 00 200 MG/ML Testosteron Testosteron No 1{ml} Testostero e Cypionate e Cypionate 4-17 ne 200 MG/ML 200 MG/ML 00:00: Cypionate 00 200 MG/ML QUEtiapine Yes Take by [facility] ers 150 mg Tab 4-07 mouth ity of 14:44: daily. [address] QUEtiapine Yes Take by [facility] ers 150 mg Tab 4-07 mouth ity of 14:44: daily. [address] QUEtiapine Yes Take by [facility] ers 150 mg Tab 4-07 mouth ity of 14:44: daily. [address] Branch QUEtiapine 2022-0 Yes Take by [facility] 150 mg Tab 4-07 mouth ity of 14:44: daily. [address] QUEtiapine 2022-0 Yes Take by [facility] 150 mg Tab 4-07 mouth ity of 14:44: daily. [address] QUEtiapine 2022-0 Yes Take by [facility] 150 mg Tab 4-07 mouth ity of 14:44: daily. [address] QUEtiapine 2022-0 Yes Take by [facility] 150 mg Tab 4-07 mouth ity of 14:44: daily. [address] QUEtiapine 2022-0 Yes Take by [facility] 150 mg Tab 4-07 mouth ity of 14:44: daily. [address] QUEtiapine 2022-0 Yes Take by [facility] 150 mg Tab 4-07 mouth ity of 14:44: daily. [address] QUEtiapine 2022-0 Yes Take by [facility] 150 mg Tab 4-07 mouth ity of 14:44: daily. [address] Branch hydrOXYzine 2022-0 Yes Univer s 25 mg 4-02 ity of tablet 00:00: [place] [address] Medical Branch hydrOXYzine 3-0 Yes Univer s 25 mg 4-02 ity of tablet 00:00: [place] [address] Medical Branch hydrOXYzine 3-0 Yes Univer s 25 mg 4-02 ity of tablet 00:00: [place] [address] Medical Branch hydrOXYzine 3-0 Yes Univer s 25 mg 4-02 ity of tablet 00:00: [place] [address] Medical Branch hydrOXYzine 3-0 Yes Univer s 25 mg 4-02 ity of tablet 00:00: [place] [address] Medical Branch hydrOXYzine 3-0 Yes Univer s 25 mg 4-02 ity of tablet 00:00: [place] [address] Medical Branch hydrOXYzine 3-0 Yes Univer s 25 mg 4-02 ity of tablet 00:00: [place] [address] Medical Branch hydrOXYzine 3-0 Yes Univer s 25 mg 4-02 ity of tablet 00:00: [place] [address] Medical Branch hydrOXYzine 3-0 Yes Univer s 25 mg 4-02 ity of tablet 00:00: [place] [address] Medical Branch hydrOXYzine 2023-0 Yes Univer s 25 mg 4-02 ity of tablet 00:00: [place] 00 [facility] Branch oxyCODONE-a Yes TAKE 1 [facility] ers cetaminophe 2-13 TABLET BY ity of n 7.5-325 00:00: MOUTH [place] mg per 00 EVERY 4 Medical tablet HOURS Branch NEEDED (MAX 4/DAY--30 DAY SUPPLY.). oxyCODONE-a Yes TAKE 1 [facility] ers cetaminophe 2-13 TABLET BY ity of n 7.5-325 00:00: MOUTH [place] mg per 00 EVERY 4 Medical tablet HOURS Branch NEEDED (MAX 4/DAY--30 DAY SUPPLY.). oxyCODONE-a Yes TAKE 1 [facility] ers cetaminophe 2-13 TABLET BY ity of n 7.5-325 00:00: MOUTH [place] mg per 00 EVERY 4 Medical tablet HOURS Branch NEEDED (MAX 4/DAY--30 DAY SUPPLY.). oxyCODONE-a Yes TAKE 1 [facility] ers cetaminophe 2-13 TABLET BY ity of n 7.5-325 00:00: MOUTH [place] mg per 00 EVERY 4 Medical tablet HOURS Branch NEEDED (MAX 4/DAY--30 DAY SUPPLY.). oxyCODONE-a Yes TAKE 1 [facility] ers cetaminophe 2-13 TABLET BY ity of n 7.5-325 00:00: MOUTH [place] mg per 00 EVERY 4 Medical tablet HOURS Branch NEEDED (MAX 4/DAY--30 DAY SUPPLY.). oxyCODONE-a Yes TAKE 1 [facility] cetaminophe 2-13 TABLET BY ity of n 7.5-325 00:00: MOUTH [place] mg per 00 EVERY 4 Medical tablet HOURS Branch NEEDED (MAX 4/DAY--30 DAY SUPPLY.). oxyCODONE-a Yes TAKE 1 [facility] ers cetaminophe 2-13 TABLET BY ity of n 7.5-325 00:00: MOUTH [place] mg per 00 EVERY 4 Medical tablet HOURS Branch NEEDED (MAX 4/DAY--30 DAY SUPPLY.). oxyCODONE-a Yes TAKE 1 [facility] ers cetaminophe 2-13 TABLET BY ity of n 7.5-325 00:00: MOUTH [place] mg per 00 EVERY 4 Medical tablet HOURS Branch NEEDED (MAX 4/DAY--30 DAY SUPPLY.). oxyCODONE-a Yes TAKE 1 [facility] ers cetaminophe 2-13 TABLET BY ity of n 7.5-325 00:00: MOUTH [place] mg per 00 EVERY 4 Medical tablet HOURS Branch NEEDED (MAX 4/DAY--30 DAY SUPPLY.). oxyCODONE-a Yes TAKE 1 [facility] ers cetaminophe 2-13 TABLET BY ity of n 7.5-325 00:00: MOUTH [place] mg per 00 EVERY 4 Medical tablet HOURS Branch NEEDED (MAX 4/DAY--30 DAY SUPPLY.). ondansetron Yes TAKE 1 [facility] ers 8 mg tablet 1-24 TABLET BY ity of 00:00: MOUTH [place] 00 EVERY DAY Medical FOR 14 Branch DAYS ondansetron 0 Yes TAKE 1 [facility] ers 8 mg tablet 1-24 TABLET BY ity of 00:00: MOUTH 00 EVERY DAY Medical FOR 14 Branch DAYS ondansetron 0 Yes TAKE 1 [facility] 8 mg tablet 1-24 TABLET BY ity of 00:00: MOUTH [place] 00 EVERY DAY Medical FOR 14 Branch DAYS ondansetron 0 Yes TAKE 1 [facility] ers 8 mg tablet 1-24 TABLET BY ity of 00:00: MOUTH [place] 00 EVERY DAY Medical FOR 14 Branch DAYS ondansetron 0 Yes TAKE 1 [facility] 8 mg tablet 1-24 TABLET BY ity of 00:00: MOUTH [place] 00 EVERY DAY Medical FOR 14 Branch DAYS ondansetron 0 Yes TAKE 1 [facility] 8 mg tablet 1-24 TABLET BY ity of 00:00: MOUTH [place] 00 EVERY DAY Medical FOR 14 Branch DAYS ondansetron 0 Yes TAKE 1 [facility] 8 mg tablet 1-24 TABLET BY ity of 00:00: MOUTH [place] 00 EVERY DAY Medical FOR 14 Branch DAYS ondansetron 2022-0 Yes TAKE 1 [facility] 8 mg tablet 1-24 TABLET BY ity of 00:00: MOUTH [place] 00 EVERY DAY Medical FOR 14 Branch DAYS ondansetron 0 Yes TAKE 1 [facility] ers 8 mg tablet 1-24 TABLET BY ity of 00:00: MOUTH [place] 00 EVERY DAY Medical FOR 14 Branch DAYS ondansetron 2023-0 Yes TAKE 1 [facility] ers 8 mg tablet 1-24 TABLET BY ity of 00:00: MOUTH [place] 00 EVERY DAY Medical FOR 14 Branch DAYS Furosemide Furosemide 2021-11 No 1{table QD Furosemide 40 MG 40 MG 0-20 t} 40 MG 00:00: 00 Furosemide Furosemide 2021-11 No 1{table QD Furosemide 40 MG 40 MG 0-20 t} 40 MG 00:00: 00 Furosemide Furosemide 2021-11 No 1{table QD Furosemide 40 MG 40 MG 0-20 t} 40 MG 00:00: 00 Furosemide Furosemide 2021-11 No 1{table QD Furosemide 40 MG 40 MG 0-20 t} 40 MG 00:00: 00 Furosemide Furosemide 2021-11 No 1{table QD Furosemide 40 MG 40 MG 0-20 t} 40 MG 00:00: 00 Furosemide Furosemide 2021-11 No 1{table QD Furosemide 40 MG 40 MG 0-20 t} 40 MG 00:00: 00 Furosemide Furosemide 2021-11 No 1{table QD Furosemide 40 MG 40 MG 0-20 t} 40 MG 00:00: 00 Furosemide Furosemide 2021-11 No 1{table QD Furosemide 40 MG 40 MG 0-20 t} 40 MG 00:00: 00 Furosemide Furosemide 2021-11 No 1{table QD Furosemide 40 MG 40 MG 0-20 t} 40 MG 00:00: 00 Diclofenac Diclofenac 2021-11- No 1{table BID Diclofenac Sodium 75 Sodium 75 0-20 -19 t_as_ne Sodium 75 MG MG 00:00: 00:00 eded} MG 00 :00 Diclofenac Diclofenac 2021-2021- No 1{table BID Diclofenac Sodium 75 Sodium 75 0-20 -19 t_as_ne Sodium 75 MG MG 00:00: 00:00 eded} MG 00 :00 Diclofenac Diclofenac 2021-11- No 1{table BID Diclofenac Sodium 75 Sodium 75 0-20 12-19 t_as_ne Sodium 75 MG MG 00:00: 00:00 eded} MG 00 :00 Testosteron Testosteron No 1{ml} Testostero e Cypionate e Cypionate 9 ne 200 MG/ML 200 MG/ML 00:00: Cypionate 00 200 MG/ML Testosteron Testosteron No 1{ml} Testostero e Cypionate e Cypionate 9-12 ne 200 MG/ML 200 MG/ML 00:00: Cypionate 00 200 MG/ML Testosteron Testosteron 2021-0 No 1{ml} Testostero e Cypionate e Cypionate 9-12 ne 200 MG/ML 200 MG/ML 00:00: Cypionate 00 200 MG/ML Testosteron Testosteron 2021-0 No 1{ml} Testostero e Cypionate e Cypionate 9-12 ne 200 MG/ML 200 MG/ML 00:00: Cypionate 00 200 MG/ML Testosteron Testosteron 2021-0 No 1{ml} Testostero e Cypionate e Cypionate 9-12 ne 200 MG/ML 200 MG/ML 00:00: Cypionate 00 200 MG/ML Testosteron Testosteron 2021-0 No 1{ml} Testostero e Cypionate e Cypionate 9-12 ne 200 MG/ML 200 MG/ML 00:00: Cypionate 00 200 MG/ML Testosteron Testosteron 2021-0 No 1{ml} Testostero e Cypionate e Cypionate 9-12 ne 200 MG/ML 200 MG/ML 00:00: Cypionate 00 200 MG/ML Testosteron Testosteron 2021-0 No 1{ml} Testostero e Cypionate e Cypionate 9-12 ne 200 MG/ML 200 MG/ML 00:00: Cypionate 00 200 MG/ML Testosteron Testosteron 2021-0 No 1{ml} Testostero e Cypionate e Cypionate 9-12 ne 200 MG/ML 200 MG/ML 00:00: Cypionate 00 200 MG/ML Testosteron Testosteron 2021-0 No 1{ml} Testostero e Cypionate e Cypionate 9-12 ne 200 MG/ML 200 MG/ML 00:00: Cypionate 00 200 MG/ML Testosteron Testosteron 2-0 No 1{ml} Testostero e Cypionate e Cypionate 9-12 ne 200 MG/ML 200 MG/ML 00:00: Cypionate 00 200 MG/ML Testosteron Testosteron 2-0 No 1{ml} Testostero e Cypionate e Cypionate 9-12 ne 200 MG/ML 200 MG/ML 00:00: Cypionate 00 200 MG/ML Testosteron Testosteron 2021-0 No 1{ml} Testostero e Cypionate e Cypionate 9-12 ne 200 MG/ML 200 MG/ML 00:00: Cypionate 00 200 MG/ML Testosteron Testosteron 2021-0 No 1{ml} Testostero e Cypionate e Cypionate 9-12 ne 200 MG/ML 200 MG/ML 00:00: Cypionate 00 200 MG/ML Testosteron Testosteron 2021-0 No 1{ml} Testostero e Cypionate e Cypionate 9-12 ne 200 MG/ML 200 MG/ML 00:00: Cypionate 00 200 MG/ML cyclobenzap 2022-0 Yes 10mg Take 1 [facility] 10 mg 8-31 tablet by [facility] tablet 00:00: mouth (three) Medical times Branch daily as needed. cyclobenzap 2022-0 Yes 10mg Take 1 [facility] 10 mg 8-31 tablet by [facility] tablet 00:00: mouth (three) Medical times Branch daily as needed. cyclobenzap 2022-0 Yes 10mg Take 1 [facility] 10 mg 8-31 tablet by [facility] tablet 00:00: mouth (three) Medical times Branch daily as needed. cyclobenzap 2022-0 Yes 10mg Take 1 [facility] 10 mg 8-31 tablet by [facility] tablet 00:00: mouth (three) Medical times Branch daily as needed. cyclobenzap 2022-0 Yes 10mg Take 1 [facility] 10 mg 8-31 tablet by [facility] tablet 00:00: mouth (three) Medical times Branch daily as needed. cyclobenzap 2022-0 Yes 10mg Take 1 [facility] 10 mg 8-31 tablet by [facility] tablet 00:00: mouth (three) Medical times Branch daily as needed. cyclobenzap 2022-0 Yes 10mg Take 1 [facility] 10 mg 8-31 tablet by [facility] tablet 00:00: mouth (three) Medical times Branch daily as needed. cyclobenzap 2022-0 Yes 10mg Take 1 [facility] 10 mg 8-31 tablet by [facility] tablet 00:00: mouth 3 (three) Medical times Branch daily as needed. cyclobenzap 2022-0 Yes 10mg Take 1 [facility] 10 mg 8-31 tablet by [facility] tablet 00:00: mouth 3 (three) Medical times Branch daily as needed. cyclobenzap 2022-0 Yes 10mg Take 1 [facility] 10 mg 8-31 tablet by [facility] tablet 00:00: mouth 3 (three) Medical times Branch daily as needed. Lasix 20 MG Lasix 20 MG 2-0 No 1{table QD Lasix 20 8-31 t} MG 00:00: 00 Lasix 20 MG Lasix 20 MG 2-0 No 1{table QD Lasix 20 8-31 t} MG 00:00: 00 Lasix 20 MG Lasix 20 MG 2-0 No 1{table QD Lasix 20 8-31 t} MG 00:00: 00 Lasix 20 MG Lasix 20 MG 2-0 No 1{table QD Lasix 20 8-31 t} MG 00:00: 00 Lasix 20 MG Lasix 20 MG 2-0 No 1{table QD Lasix 20 8-31 t} MG 00:00: 00 Lasix 20 MG Lasix 20 MG 2-0 No 1{table QD Lasix 20 8-31 t} MG 00:00: 00 Lasix 20 MG Lasix 20 MG 2-0 No 1{table QD Lasix 20 8-31 t} MG 00:00: 00 Lasix 20 MG Lasix 20 MG 2-0 No 1{table QD Lasix 20 8-31 t} MG 00:00: 00 Lasix 20 MG Lasix 20 MG 2-0 No 1{table QD Lasix 20 8-31 t} MG 00:00: 00 Lasix 20 MG Lasix 20 MG 2-0 No 1{table QD Lasix 20 8-31 t} MG 00:00: 00 Lasix 20 MG Lasix 20 MG 2-0 No 1{table QD Lasix 20 8-31 t} MG 00:00: 00 Lasix 20 MG Lasix 20 MG 2-0 No 1{table QD Lasix 20 8-31 t} MG 00:00: 00 Lasix 20 MG Lasix 20 MG 2022-0 No 1{table QD Lasix 20 8-31 t} MG 00:00: 00 Lasix 20 MG Lasix 20 MG 2-0 No 1{table QD Lasix 20 8-31 t} MG 00:00: 00 Lasix 20 MG Lasix 20 MG 2-0 No 1{table QD Lasix 20 8-31 t} MG 00:00: 00 Lasix 20 MG Lasix 20 MG 2-0 No 1{table QD Lasix 20 8-31 t} MG 00:00: 00 Lasix 20 MG Lasix 20 MG 2-0 No 1{table QD Lasix 20 8-31 t} MG 00:00: 00 Lasix 20 MG Lasix 20 MG 2021-0 No 1{table QD Lasix 20 8-31 t} MG 00:00: 00 predniSONE predniSONE 2021-0 No 2{table QD predniSONE 20 MG 20 MG 8-30 t} 20 MG 00:00: 00 predniSONE predniSONE 2-0 No 2{table QD predniSONE 20 MG 20 MG 8-30 t} 20 MG 00:00: 00 predniSONE predniSONE 2-0 No 2{table QD predniSONE 20 MG 20 MG 8-30 t} 20 MG 00:00: 00 predniSONE predniSONE 2-0 No 2{table QD predniSONE 20 MG 20 MG 8-30 t} 20 MG 00:00: 00 predniSONE predniSONE 2-0 No 2{table QD predniSONE 20 MG 20 MG 8-30 t} 20 MG 00:00: 00 predniSONE predniSONE 2-0 No 2{table QD predniSONE 20 MG 20 MG 8-30 t} 20 MG 00:00: 00 predniSONE predniSONE 2-0 No 2{table QD predniSONE 20 MG 20 MG 8-30 t} 20 MG 00:00: 00 predniSONE predniSONE 2-0 No 2{table QD predniSONE 20 MG 20 MG 8-30 t} 20 MG 00:00: 00 predniSONE predniSONE 2-0 No 2{table QD predniSONE 20 MG 20 MG 8-30 t} 20 MG 00:00: 00 predniSONE predniSONE 2-0 No 2{table QD predniSONE 20 MG 20 MG 8-30 t} 20 MG 00:00: 00 predniSONE predniSONE 2-0 No 2{table QD predniSONE 20 MG 20 MG 8-30 t} 20 MG 00:00: 00 predniSONE predniSONE 2-0 No 2{table QD predniSONE 20 MG 20 MG 8-30 t} 20 MG 00:00: 00 predniSONE predniSONE 2-0 No 2{table QD predniSONE 20 MG 20 MG 8-30 t} 20 MG 00:00: 00 predniSONE predniSONE 2022-0 No 2{table QD predniSONE 20 MG 20 MG 8-30 t} 20 MG 00:00: 00 predniSONE predniSONE 2022-0 No 2{table QD predniSONE 20 MG 20 MG 8-30 t} 20 MG 00:00: 00 predniSONE predniSONE 2022-0 No 2{table QD predniSONE 20 MG 20 MG 8-30 t} 20 MG 00:00: 00 predniSONE predniSONE 2022-0 No 2{table QD predniSONE 20 MG 20 MG 8-30 t} 20 MG 00:00: 00 predniSONE predniSONE 2-0 No 2{table QD predniSONE 20 MG 20 MG 8-30 t} 20 MG 00:00: 00 predniSONE predniSONE 2-0 No 2{table QD predniSONE 20 MG 20 MG 8-30 t} 20 MG 00:00: 00 Tretinoin Tretinoin 2-0 No QD Tretinoin 0.05 % 0.05 % 8-29 0.05 % 00:00: 00 Tretinoin Tretinoin 2-0 No QD Tretinoin 0.05 % 0.05 % 8-29 0.05 % 00:00: 00 Tretinoin Tretinoin 2-0 No QD Tretinoin 0.05 % 0.05 % 8-29 0.05 % 00:00: 00 Tretinoin Tretinoin 2-0 No QD Tretinoin 0.05 % 0.05 % 8-29 0.05 % 00:00: 00 Tretinoin Tretinoin 2-0 No QD Tretinoin 0.05 % 0.05 % 8-29 0.05 % 00:00: 00 Tretinoin Tretinoin 2-0 No QD Tretinoin 0.05 % 0.05 % 8-29 0.05 % 00:00: 00 Tretinoin Tretinoin 2-0 No QD Tretinoin 0.05 % 0.05 % 8-29 0.05 % 00:00: 00 Tretinoin Tretinoin 2-0 No QD Tretinoin 0.05 % 0.05 % 8-29 0.05 % 00:00: 00 Tretinoin Tretinoin 2-0 No QD Tretinoin 0.05 % 0.05 % 8-29 0.05 % 00:00: 00 Tretinoin Tretinoin 2-0 No QD Tretinoin 0.05 % 0.05 % 8-29 0.05 % 00:00: 00 Tretinoin Tretinoin 2-0 No QD Tretinoin 0.05 % 0.05 % 8-29 0.05 % 00:00: 00 Tretinoin Tretinoin 2-0 No QD Tretinoin 0.05 % 0.05 % 8-29 0.05 % 00:00: 00 Tretinoin Tretinoin 2-0 No QD Tretinoin 0.05 % 0.05 % 8-29 0.05 % 00:00: 00 Tretinoin Tretinoin 2-0 No QD Tretinoin 0.05 % 0.05 % 8-29 0.05 % 00:00: 00 Tretinoin Tretinoin 2-0 No QD Tretinoin 0.05 % 0.05 % 8-29 0.05 % 00:00: 00 Tretinoin Tretinoin 2-0 No QD Tretinoin 0.05 % 0.05 % 8-29 0.05 % 00:00: 00 Tretinoin Tretinoin 2-0 No QD Tretinoin 0.05 % 0.05 % 8-29 0.05 % 00:00: 00 Tretinoin Tretinoin 2-0 No QD Tretinoin 0.05 % 0.05 % 8-29 0.05 % 00:00: 00 Tretinoin Tretinoin 2-0 No QD Tretinoin 0.05 % 0.05 % 8-29 0.05 % 00:00: 00 Tretinoin Tretinoin 2-0 No QD Tretinoin 0.05 % 0.05 % 8-29 0.05 % 00:00: 00 EPINEPHrine EPINEPHrine 2021-0 No EPINEPHrin 0.3 0.3 8-16 e 0.3 MG/0.3ML MG/0.3ML 00:00: MG/0.3ML 00 EPINEPHrine EPINEPHrine 2021-0 No EPINEPHrin 0.3 0.3 8-16 e 0.3 MG/0.3ML MG/0.3ML 00:00: MG/0.3ML 00 EPINEPHrine EPINEPHrine 2021-0 No EPINEPHrin 0.3 0.3 8-16 e 0.3 MG/0.3ML MG/0.3ML 00:00: MG/0.3ML 00 EPINEPHrine EPINEPHrine 0 No EPINEPHrin 0.3 0.3 8-16 e 0.3 MG/0.3ML MG/0.3ML 00:00: MG/0.3ML 00 EPINEPHrine EPINEPHrine 0 No EPINEPHrin 0.3 0.3 8-16 e 0.3 MG/0.3ML MG/0.3ML 00:00: MG/0.3ML 00 EPINEPHrine EPINEPHrine 0 No EPINEPHrin 0.3 0.3 8-16 e 0.3 MG/0.3ML MG/0.3ML 00:00: MG/0.3ML 00 EPINEPHrine EPINEPHrine 0 No EPINEPHrin 0.3 0.3 8-16 e 0.3 MG/0.3ML MG/0.3ML 00:00: MG/0.3ML 00 EPINEPHrine EPINEPHrine 0 No EPINEPHrin 0.3 0.3 8-16 e 0.3 MG/0.3ML MG/0.3ML 00:00: MG/0.3ML 00 EPINEPHrine EPINEPHrine 0 No EPINEPHrin 0.3 0.3 8-16 e 0.3 MG/0.3ML MG/0.3ML 00:00: MG/0.3ML 00 EPINEPHrine EPINEPHrine 2021-0 No EPINEPHrin 0.3 0.3 8-16 e 0.3 MG/0.3ML MG/0.3ML 00:00: MG/0.3ML 00 EPINEPHrine EPINEPHrine 0 No EPINEPHrin 0.3 0.3 8-16 e 0.3 MG/0.3ML MG/0.3ML 00:00: MG/0.3ML 00 EPINEPHrine EPINEPHrine 2021-0 No EPINEPHrin 0.3 0.3 8-16 e 0.3 MG/0.3ML MG/0.3ML 00:00: MG/0.3ML 00 EPINEPHrine EPINEPHrine 2021-0 No EPINEPHrin 0.3 0.3 8-16 e 0.3 MG/0.3ML MG/0.3ML 00:00: MG/0.3ML 00 Doxycycline Doxycycline 2021-0 2021- No 1{table BID Doxycyclin Hyclate 50 Hyclate 50 8-05 - t} e Hyclate MG MG 00:00: 00:00 50 MG 00 :00 Doxycycline Doxycycline 2- No 1{table BID Doxycyclin Hyclate 50 Hyclate 50 06-29 t} e Hyclate MG MG 00:00: 00:00 50 MG 00 :00 Doxycycline Doxycycline 2021-0 2022- No 1{table BID Doxycyclin Hyclate 50 Hyclate 50 06-29 t} e Hyclate MG MG 00:00: 00:00 50 MG 00 :00 vortioxetin 2021-0 Yes 10mg QD Take [address] [facility] every Medic al ) 10 mg Tab 01 evening. Cent er TESTOSTERON 2021-0 Yes 200mg/m Q14D Inject [address] [facility] CYPIONATE 6-17 L mg/mL [facility] [address] [place] [address] every 14 (fourteen) days. HYDROmorpho 2-0 Yes 4mg Take [address] [facility] 6-17 [facility] ([facility] 14:49: every 4 Medi lino 4 MG tablet 01 (four) Center hours as needed for Pain. vortioxetin 2021-0 Yes 10mg QD Take [address] [facility] 6-17 by [facility] ([facility] 14:49: every Medic al ) 10 mg Tab 01 evening. Cent er TESTOSTERON 2021-0 Yes 200mg/m Q14D Inject [address] [facility] CYPIONATE 6-17 L mg/mL [facility]: [facility] [address] [place] [address] Center every 14 (fourteen) days. HYDROmorpho 2-0 Yes 4mg Take [address] ne 6-17 [facility] ([facility]) 14:49: every 4 Medi lino 4 MG tablet 01 (four) Center hours as needed for Pain. vortioxetin 2-0 Yes 10mg QD Take [address] [facility] 6-17 by [facility] 14:49: every Medic al ) 10 mg Tab 01 evening. Cent er TESTOSTERON 2-0 Yes 200mg/m Q14D Inject [address] [facility] [address] [facility] CYPIONATE 6-17 L mg/mL [facility]: [facility] [address] Center every 14 (fourteen) days. HYDROmorpho 2022-0 Yes 4mg Take [address] ne 6-17 [facility] ([facility]) 14:49: every 4 Medi lino 4 MG tablet 01 (four) Center hours as needed for Pain. vortioxetin 2022-0 Yes 10mg QD Take [address] [facility] 6-17 by [facility] 14:49: every Medic al ) 10 mg Tab 01 evening. Cent er TESTOSTERON 2022-0 Yes 200mg/m Q14D Inject [address] [facility] [address] [facility] CYPIONATE 6-17 L mg/mL [facility]: [facility] [address] every 14 (fourteen) days. HYDROmorpho 2022-0 Yes 4mg Take [address] [facility] 6-17 [facility] ([facility]) 14:49: every 4 Medi lino 4 MG tablet 01 (four) Center hours as needed for Pain. vortioxetin 2022-0 Yes 10mg QD Take [address] [facility] 6-17 by [facility] ([facility] 14:49: every Medic al ) 10 mg Tab 01 evening. Cent er TESTOSTERON 2022-0 Yes 200mg/m Q14D Inject [address] [facility] [address] [facility] CYPIONATE 6-17 L mg/mL [facility]: [facility] [address] every 14 (fourteen) days. HYDROmorpho 2022-0 Yes 4mg Take [address] [facility] 6-17 [facility] ([facility]) 14:49: every 4 Medi lino 4 MG tablet 01 (four) Center hours as needed for Pain. vortioxetin 2022-0 Yes 10mg QD Take [address] [facility] 6-17 by [facility] ([facility] 14:49: every Medic al ) 10 mg Tab 01 evening. Cent er TESTOSTERON 2022-0 Yes 200mg/m Q14D Inject [address] [facility] [address] [facility] CYPIONATE 6-17 L mg/mL [facility]: [facility] [address] [place] [address] Center every 14 (fourteen) days. HYDROmorpho 2022-0 Yes 4mg Take [address] ne 6-17 [facility] ([facility]) 14:49: every 4 Medi lino 4 MG tablet 01 (four) Center hours as needed for Pain. vortioxetin 2-0 Yes 10mg QD Take [address] [facility] 6-17 by [facility] 14:49: every Medic al ) 10 mg Tab 01 evening. Cent er TESTOSTERON 2-0 Yes 200mg/m Q14D Inject [address] [facility] [address] [facility] CYPIONATE 6-17 L mg/mL [facility]: [facility] Center every 14 (fourteen) days. HYDROmorpho 2022-0 Yes 4mg Take [address] ne 6-17 by [facility] ([facility]) 14:49: every 4 Medi lino 4 MG tablet 01 (four) Center hours as needed for Pain. vortioxetin 2-0 Yes 10mg QD Take [address] [facility] 6-17 by [facility] ([facility] 14:49: every Medic al ) 10 mg Tab 01 evening. Cent er TESTOSTERON 2021-0 Yes 200mg/m Q14D Inject [address] [facility] [address] [facility] CYPIONATE 6-17 L mg/mL [facility]: [facility] 01 [facility] Center every 14 (fourteen) days. HYDROmorpho 2022-0 Yes 4mg Take [address] ne 6-17 by [facility] ([facility]) 14:49: every 4 Medi lino 4 MG tablet 01 (four) Center hours as needed for Pain. oxyCODONE-a 2021-2021- No 1{tbl} Take [address] cetaminophe 6-17 06-16 tablet by [facility] 14:49: 00:00 mouth Medical (PERCOCET) 01 :00 every 4 Center 5-325 mg (four) per tablet hours as needed for Pain. oxyCODONE-a 2021- No 1{tbl} Take [address] cetaminophe 6-17 06-16 tablet by Y[facility] rasmussen 14:49: 00:00 [facility] (PERCOCET) 01 :00 every 4 Center 5-325 mg (four) per tablet hours as needed for Pain. oxyCODONE-a 2021-2021- No 1{tbl} Take [address] cetaminophe 6-17 06-16 tablet by Y[facility] rasm[facility] 14:49: 00:00 mouth Medical (PERCOCET) 01 :00 every 4 Center 5-325 mg (four) per tablet hours as needed for Pain. oxyCODONE-a 2021- No 1{tbl} Take [address] cetaminophe 6-17 06-16 tablet by Y[facility] rasm[facility] 14:49: 00:00 [facility] (PERCOCET) 01 :00 every 4 Center 5-325 mg (four) per tablet hours as needed for Pain. oxyCODONE-a 2021- No 1{tbl} Take [address] cetaminophe 6-17 06-16 tablet by [facility] rasmussen 14:49: 00:00 [facility] (PERCOCET) 01 :00 every 4 Center 5-325 mg (four) per tablet hours as needed for Pain. oxyCODONE-a 2021- No 1{tbl} Take [address] cetaminophe 6-17 06-16 tablet by Y[facility] rasmussen 14:49: 00:00 [facility] (PERCOCET) 01 :00 every 4 Center 5-325 mg (four) per tablet hours as needed for Pain. oxyCODONE-a 2021- No 1{tbl} Take [address] cetaminophe 6-17 06-16 tablet by Yancy rasmussen 14:49: 00:00 mouth [facility] (PERCOCET) 01 :00 every 4 Center 5-325 mg (four) per tablet hours as needed for Pain. oxyCODONE-a 2021- No 1{tbl} Take [address] cetaminophe 6-17 06-16 tablet by Yancy rasmussen 14:49: 00:00 mouth [facility] (PERCOCET) 01 :00 every 4 Center 5-325 mg (four) per tablet hours as needed for Pain. oxyCODONE-a 2021- No 1{tbl} Take [address] cetaminophe 6-17 06-16 tablet by Y[facility] rasmussen 14:49: 00:00 [facility] (PERCOCET) 01 :00 every 4 Center 5-325 mg (four) per tablet hours as needed for Pain. oxyCODONE-a 2021- No 1{tbl} Take [address] cetaminophe 6-17 06-16 tablet by Y[facility] rasmussen 14:49: 00:00 mouth [facility] (PERCOCET) 01 :00 every 4 Center 5-325 mg (four) per tablet hours as needed for Pain. oxyCODONE-a 2021- No 1{tbl} Take [address] cetaminophe 6-17 06-16 tablet by Yancy rasmussen 14:49: 00:00 mouth [facility] (PERCOCET) 01 :00 every 4 Center 5-325 mg (four) per tablet hours as needed for Pain. oxyCODONE-a 2021- No 1{tbl} Take [address] cetaminophe 6-17 06-14 tablet by Yancy rasmussen 14:49: 00:00 mouth [facility] (PERCOCET) 01 :00 every 4 Center 10-325 mg (four) per tablet hours as needed for Pain. oxyCODONE-a 2021- No 1{tbl} Take [address] cetaminophe 6-17 06-14 tablet by Yancy rasmussen 14:49: 00:00 mouth Medical (PERCOCET) 01 :00 every 4 Center 10-325 mg (four) per tablet hours as needed for Pain. oxyCODONE-a 2021- No 1{tbl} Take [address] cetaminophe 6-17 06-14 tablet by Y[facility] rasmussen 14:49: 00:00 mouth Medical (PERCOCET) 01 :00 every 4 Center 10-325 mg (four) per tablet hours as needed for Pain. oxyCODONE-a 2021- No 1{tbl} Take [address] cetaminophe 6-17 06-14 tablet by Yancy rasmussen 14:49: 00:00 mouth [facility] (PERCOCET) 01 :00 every 4 Center 10-325 mg (four) per tablet hours as needed for Pain. oxyCODONE-a 2021- No 1{tbl} Take [address] cetaminophe 6-17 06-14 tablet by [facility] r[facility] 14:49: 00:00 mouth Medical (PERCOCET) 01 :00 every 4 Center 10-325 mg (four) per tablet hours as needed for Pain. oxyCODONE-a 2021- No 1{tbl} Take [address] cetaminophe 6-17 06-14 tablet by Yancy rasmussen 14:49: 00:00 mouth Medical (PERCOCET) 01 :00 every 4 Center 10-325 mg (four) per tablet hours as needed for Pain. oxyCODONE-a 2021- No 1{tbl} Take [address] cetaminophe 6-17 06-14 tablet by [facility] rasmussen 14:49: 00:00 [facility] (PERCOCET) 01 :00 every 4 Center 10-325 mg (four) per tablet hours as needed for Pain. oxyCODONE-a 2021- No 1{tbl} Take [address] cetaminophe 6-17 06-14 tablet by Y[facility] rasm[facility] 14:49: 00:00 mouth Medical (PERCOCET) 01 :00 every 4 Center 10-325 mg (four) per tablet hours as needed for Pain. oxyCODONE-a 2021- No 1{tbl} Take [address] cetaminophe 6-17 06-14 tablet by Yancy rasmussen 14:49: 00:00 mouth Medical (PERCOCET) 01 :00 every 4 Center 10-325 mg (four) per tablet hours as needed for Pain. oxyCODONE-a 2021- No 1{tbl} Take [address] cetaminophe 6-17 06-14 tablet by Y[facility] rasmussen 14:49: 00:00 mouth Medical (PERCOCET) 01 :00 every 4 Center 10-325 mg (four) per tablet hours as needed for Pain. oxyCODONE-a 2021- No 1{tbl} Take [address] cetaminophe 6-17 06-14 tablet by Yancy rasmussen 14:49: 00:00 mouth Medical (PERCOCET) 01 :00 every 4 Center 10-325 mg (four) per tablet hours as needed for Pain. hydrOXYzine Yes [address] [facility] [address] (ATARAX) 25 6-16 as BID [facility] tablet [facility] Medical [facility] Center busPIRone 2021-0 Yes generalized 10mg Q.[id number] Take [address] [facility] (BUSPAR) 10 6-16 anxiety [id number] by mouth 3 [facility] tablet 14:49: disorder 3D (three) M edical 46 times Center daily . cyclobenzap 2-0 Yes 10mg Take [address] [facility]ine 6-16 by mouth [facility] (FLEXERIL) 14:49: (three) Medi lino 10 MG 46 times Center tablet daily as needed for Muscle spasms. hydrOXYzine 2021-0 Yes [address] [facility] [address] [facility] (ATARAX) 25 6-16 as BID [facility] tablet 14:49: [address] busPIRone 2021-0 Yes generalized 10mg Q.[id number] Take [address] [facility] (BUSPAR) 10 6-16 anxiety [id number] by mouth 3 [facility] tablet 14:49: disorder 3D (three) edical 46 times Center daily . cyclobenzap 2021-0 Yes 10mg Take [address] [facility] [address] [facility]ine 6-16 by mouth 3 [facility] (F[facility]ERIL) 14:49: (three) Medi lino 10 MG 46 times Center tablet daily as needed for Muscle spasms. hydrOXYzine 2021-0 Yes [address] [facility] [address] [facility] (ATARAX) 25 6-16 as BID [facility] tablet 14:49: [address] busPIRone 2021-0 Yes generalized 10mg Q.[id number] Take [address] [facility] (BUSPAR) 10 6-16 anxiety [id number] by mouth 3 [facility] tablet 14:49: disorder 3D (three) edical 46 times Center daily . cyclobenzap 2-0 Yes 10mg Take [address] [facility] 6-16 by mouth 3 [facility] ([facility]) 14:49: (three) Medi lino 10 MG 46 times Center tablet daily as needed for Muscle spasms. hydrOXYzine 2-0 Yes [address] (ATARAX) 25 6-16 as BID [facility] tablet 14:49: [address] busPIRone 2021-0 Yes generalized 10mg Q.[id number] Take [address] [facility] [address] (BUSPAR) 10 6-16 anxiety [id number] by mouth 3 [facility] tablet 14:49: disorder 3D (three) M edical 46 times Center daily . cyclobenzap 2-0 Yes 10mg Take [address] [facility]ine 6-16 by mouth 3 [facility] (FLEXERIL) 14:49: (three) Medi lino 10 MG 46 times Center tablet daily as needed for Muscle spasms. hydrOXYzine 2-0 Yes [address] (ATARAX) 25 6-16 as BID [facility] tablet 14:49: Medical 46 Center busPIRone 2-0 Yes generalized 10mg Q.[id number] Take [address] [facility] (BUSPAR) 10 6-16 anxiety [id number] by mouth 3 [facility] tablet 14:49: disorder 3D (three) M edical 46 times Center daily . cyclobenzap 2-0 Yes 10mg Take [address] [facility]ine 6-16 by mouth 3 [facility] ([facility]ERIL) 14:49: (three) Medi lino 10 MG 46 times Center tablet daily as needed for Muscle spasms. hydrOXYzine 2-0 Yes [address] (ATARAX) 25 6-16 as BID [facility] tablet 14:49: Medical [address] [place] [address] busPIRone 2021-0 Yes generalized 10mg Q.[id number] Take [address] [facility] [address] (BUSPAR) 10 6-16 anxiety [id number] by mouth 3 [facility] tablet 14:49: disorder 3D (three) M edical 46 times Center daily . cyclobenzap 2-0 Yes 10mg Take [address] [facility] [address] [facility]ine 6-16 by mouth 3 [facility] ([facility]ERIL) 14:49: (three) Medi lino 10 MG 46 times Center tablet daily as needed for Muscle spasms. hydrOXYzine 2-0 Yes [address] (ATARAX) 25 6-16 as BID [facility] tablet 14:49: Medical Center busPIRone 2-0 Yes generalized 10mg Q.[id number] Take [address] [facility] (BUSPAR) 10 6-16 anxiety [id number] by mouth 3 [facility] tablet 14:49: disorder 3D (three) M edical 46 times Center daily . cyclobenzap 2022-0 Yes 10mg Take [address] [facility]ine 6-16 by mouth 3 [facility] ([facility]IL) 14:49: (three) Medi lino 10 MG 46 times Center tablet daily as needed for Muscle spasms. hydrOXYzine Yes [address] [facility] [address] [facility] (ATARAX) 25 6-16 as BID [facility] tablet 14:49: Medical 46 Center busPIRone Yes generalized 10mg Q.[id number] Take [address] [facility] (BUSPAR) 10 6-16 anxiety [id number] by mouth 3 [facility] tablet 14:49: disorder 3D (three) M edical 46 times Center daily . cyclobenzap Yes 10mg Take [address] [facility] [address] [facility]ine 6-16 by mouth 3 [facility] ([facility]) 14:49: (three) Medi lino 10 MG 46 times Center tablet daily as needed for Muscle spasms. lidocaine 2021- No 1{patch Q24H Place [address] (LIDODERM) -16 -16 } patch onto Yancy kes 5 % patch 00:00: 23:59 the skin Med ical 00 :00 daily for Center 30 days Remove & Discard patch within 12 hours or as directed by . lidocaine 2021- No 1{patch Q24H Place [address] (LIDODERM) 6-16 07-16 } patch onto Yancy kes 5 % patch 00:00: 23:59 the skin Med ical 00 :00 daily for Center 30 days Remove & Discard patch within 12 hours or as directed by MD. lidocaine 2021- No 1{patch Q24H Place [address] (LIDODERM) -16 07-16 } patch onto Yancy kes 5 % patch 00:00: 23:59 the skin Med ical 00 :00 daily for Center 30 days Remove & Discard patch within 12 hours or as directed by MD. lidocaine 2021-2021- No 1{patch Q24H Place [address] (LIDODERM) 6-16 07-16 } patch onto Ynacy kes 5 % patch 00:00: 23:59 the skin Med ical 00 :00 daily for Center 30 days Remove & Discard patch within 12 hours or as directed by . lidocaine 2021-2021- No 1{patch Q24H Place [address] (LIDODERM) 6-16 07-16 } patch onto Yancy kes 5 % patch 00:00: 23:59 the skin Med ical 00 :00 daily for Center 30 days Remove & Discard patch within 12 hours or as directed by MD. lidocaine 2021-2- No 1{patch Q24H Place [address] (LIDODERM) 6-16 07-16 } patch onto Yancy kes 5 % patch 00:00: 23:59 the skin Med ical 00 :00 daily for Center 30 days Remove & Discard patch within 12 hours or as directed by MD. lidocaine 2021-2021- No 1{patch Q24H Place [address] (LIDODERM) 6-16 07-16 } patch onto Yancy kes 5 % patch 00:00: 23:59 the skin Med ical 00 :00 daily for Center 30 days Remove & Discard patch within 12 hours or as directed by MD. lidocaine 2021-2021- No 1{patch Q24H Place [address] (LIDODERM) 6-16 07-16 } patch onto Yancy kes 5 % patch 00:00: 23:59 the skin Med ical 00 :00 daily for Center 30 days Remove & Discard patch within 12 hours or as directed by MD. lidocaine 2021-2021- No 1{patch Q24H Place [address] (LIDODERM) 6-16 07-16 } patch onto Yancy kes 5 % patch 00:00: 23:59 the skin Med ical 00 :00 daily for Center 30 days Remove & Discard patch within 12 hours or as directed by MD. lidocaine 2021-2021- No 1{patch Q24H Place [address] (LIDODERM) 6-16 07-16 } patch onto Yancy kes 5 % patch 00:00: 23:59 the skin Med ical 00 :00 daily for Center 30 days Remove & Discard patch within 12 hours or as directed by MD. lidocaine 2021-0 2- No 1{patch Q24H Place [address] (LIDODERM) 6-16 07-16 } patch onto Yancy kes 5 % patch 00:00: 23:59 the skin Med ical 00 :00 daily for Center 30 days Remove & Discard patch within 12 hours or as directed by MD. lidocaine 2021-2- No 1{patch Q24H Place [address] (LIDODERM) 6-16 07-16 } patch onto Yancy kes 5 % patch 00:00: 23:59 the skin Med ical 00 :00 daily for Center 30 days Remove & Discard patch within 12 hours or as directed by . docusate 2021-0 2021- No 100mg Take 1 [facility] ([facility]) 00:00: 23:59 (100 mg Medic al 100 MG 00 :00 total) by [facility] capsule mouth 2 (two) times daily as needed for Constipati on for up to 10 days. docusate 2021-2021- No 100mg Take 1 [facility] 6[facility] 06-[facility] ([facility]) 00:00: 23:59 (100 mg Medic al 100 MG 00 :00 total) by [facility] capsule mouth 2 (two) times daily as needed for Constipati on for up to 10 days. docusate 2021-2021- No 100mg Take 1 [facility] 6-16 06-[facility] ([facility]) 00:00: 23:59 (100 mg Medic al 100 MG 00 :00 total) by [facility] capsule mouth 2 (two) times daily as needed for Constipati on for up to 10 days. docusate 2021-0 2021- No 100mg Take 1 [facility] 6-16 06-26 [facility] ([facility]) 00:00: 23:59 (100 mg Medic al 100 MG 00 :00 total) by [facility] capsule mouth 2 (two) times daily as needed for Constipati on for up to 10 days. docusate 2021-2021- No 100mg Take 1 [facility] 6-16 06-26 [facility] ([facility]) 00:00: 23:59 (100 mg Medic al 100 MG 00 :00 total) by [facility] capsule mouth 2 (two) times daily as needed for Constipati on for up to 10 days. docusate 2021-0 2021- No 100mg Take 1 [facility] 6-16 06-26 [facility] ([facility]) 00:00: 23:59 (100 mg Medic al 100 MG 00 :00 total) by [facility] capsule mouth 2 (two) times daily as needed for Constipati on for up to 10 days. docusate 2021-2021- No 100mg Take 1 [facility] 6[facility]16 06-26 [facility] ([facility]) 00:00: 23:59 (100 mg Medic al 100 MG 00 :00 total) by [facility] capsule mouth 2 (two) times daily as needed for Constipati on for up to 10 days. docusate 2021-0 2021- No 100mg Take 1 [facility] 6-16 06-26 [facility] ([facility]) 00:00: 23:59 (100 mg Medic al 100 MG 00 :00 total) by [facility] capsule mouth 2 (two) times daily as needed for Constipati on for up to 10 days. docusate 2021-0 2021- No [facility]mg Take [facility] 00:00: 23:59 (100 mg Medic al 100 MG 00 :00 total) by Center capsule mouth 2 (two) times daily as needed for Constipati on for up to 10 days. docusate 2021-2021- No [facility]mg Take [facility] (COLACE) 00:00: 23:59 (100 mg Medic al 100 MG 00 :00 total) by Center capsule mouth 2 (two) times daily as needed for Constipati on for up to 10 days. docusate 2021-0 2021- No 100mg Take 1 [facility] (COLACE) 00:00: 23:59 (100 mg Medic al 100 MG 00 :00 total) by Center capsule mouth 2 (two) times daily as needed for Constipati on for up to 10 days. oxyCODONE-a 2021- No 1{tbl} Take [address] cetaminophe 6-15 06-16 tablet by Yancy kaur n 00:00: 00:00 mouth Medical (PERCOCET) 00 :00 every 4 Center 5-325 mg (four) per tablet hours as needed for Pain for up to 10 days. Max Daily Amount: 6 tablets oxyCODONE-a 2021- No 1{tbl} Take [address] cetaminophe 6-15 06-16 tablet by Yancy kes n 00:00: 00:00 mouth Medical (PERCOCET) 00 :00 every 4 Center 5-325 mg (four) per tablet hours as needed for Pain for up to 10 days. Max Daily Amount: 6 tablets oxyCODONE-a 2021- No 1{tbl} Take [address] cetaminophe 6-15 06-16 tablet by Yancy rasmussen 00:00: 00:00 mouth Medical (PERCOCET) 00 :00 every 4 Center 5-325 mg (four) per tablet hours as needed for Pain for up to 10 days. Max Daily Amount: 6 tablets oxyCODONE-a 2021- No 1{tbl} Take [address] cetaminophe 6-15 06-16 tablet by Yancy rasmussen 00:00: 00:00 mouth Medical (PERCOCET) 00 :00 every 4 Center 5-325 mg (four) per tablet hours as needed for Pain for up to 10 days. Max Daily Amount: 6 tablets oxyCODONE-a 2021- No 1{tbl} Take [address] cetaminophe 6-15 06-16 tablet by Yancy rasmussen 00:00: 00:00 mouth Medical (PERCOCET) 00 :00 every 4 Center 5-325 mg (four) per tablet hours as needed for Pain for up to 10 days. Max Daily Amount: 6 tablets oxyCODONE-a 2021- No 1{tbl} Take [address] cetaminophe 6-15 06-16 tablet by Yancy rasmussen 00:00: 00:00 mouth Medical (PERCOCET) 00 :00 every 4 Center 5-325 mg (four) per tablet hours as needed for Pain for up to 10 days. Max Daily Amount: 6 tablets oxyCODONE-a 2021- No 1{tbl} Take [address] cetaminophe 6-15 06-16 tablet by Yancy rasmussen 00:00: 00:00 mouth Medical (PERCOCET) 00 :00 every 4 Center 5-325 mg (four) per tablet hours as needed for Pain for up to 10 days. Max Daily Amount: 6 tablets oxyCODONE-a 2021- No 1{tbl} Take [address] cetaminophe 6-15 06-16 tablet by Yancy rasmussen 00:00: 00:00 mouth Medical (PERCOCET) 00 :00 every 4 Center 5-325 mg (four) per tablet hours as needed for Pain for up to 10 days. Max Daily Amount: 6 tablets oxyCODONE-a 2021-2021- No 1{tbl} Take [address] cetaminophe 6-15 06-16 tablet by Yancy kaur n 00:00: 00:00 mouth Medical (PERCOCET) 00 :00 every 4 Center 5-325 mg (four) per tablet hours as needed for Pain for up to 10 days. Max Daily Amount: 6 tablets oxyCODONE-a 2021-2021- No 1{tbl} Take [address] cetaminophe 6-15 06-16 tablet by Yancy baums n 00:00: 00:00 mouth Medical (PERCOCET) 00 :00 every 4 Center 5-325 mg (four) per tablet hours as needed for Pain for up to 10 days. Max Daily Amount: 6 tablets oxyCODONE-a 2021-2021- No 1{tbl} Take [address] cetaminophe 6-15 06-16 tablet by Yancy kaur n 00:00: 00:00 mouth Medical (PERCOCET) 00 :00 every 4 Center 5-325 mg (four) per tablet hours as needed for Pain for up to 10 days. Max Daily Amount: 6 tablets HYDROmorpho 2021-0 2021- No 2mg Take [address] [facility] ne 6-14 06-16 tablet (2 [facility] (DILAUDID) 00:00: 00:00 mg total) M edical 2 MG tablet 00 :00 by mouth Cent er every 4 (four) hours as needed for Pain for up to 12 doses. Max Daily Amount: 12 mg HYDROmorpho 2021-0 2- No 2mg Take [address] [facility] ne 6-14 06-16 tablet (2 [facility] (DILAUDID) 00:00: 00:00 mg total) M edical 2 MG tablet 00 :00 by mouth Cent er every 4 (four) hours as needed for Pain for up to 12 doses. Max Daily Amount: 12 mg HYDROmorpho 2-0 2- No 2mg Take [address] [facility] ne 6-14 06-16 tablet (2 [facility] (DILAUDID) 00:00: 00:00 mg total) M edical 2 MG tablet 00 :00 by mouth Cent er every 4 (four) hours as needed for Pain for up to 12 doses. Max Daily Amount: 12 mg HYDROmorpho 2022-0 2022- No 2mg Take [address] [facility] ne 6-14 06-16 tablet (2 [facility] (DILAUDID) 00:00: 00:00 mg total) M edical 2 MG tablet 00 :00 by mouth Cent er every 4 (four) hours as needed for Pain for up to 12 doses. Max Daily Amount: 12 mg HYDROmorpho 2022-0 2022- No 2mg Take [address] [facility] ne 6-14 06-16 tablet (2 [facility] (DILAUDID) 00:00: 00:00 mg total) M edical 2 MG tablet 00 :00 by mouth Cent er every 4 (four) hours as needed for Pain for up to 12 doses. Max Daily Amount: 12 mg HYDROmorpho 2022-0 2022- No 2mg Take [address] [facility] ne 6-14 06-16 tablet (2 [facility] (DILAUDID) 00:00: 00:00 mg total) M edical 2 MG tablet 00 :00 by mouth Cent er every 4 (four) hours as needed for Pain for up to 12 doses. Max Daily Amount: 12 mg HYDROmorpho 2022-0 2022- No 2mg Take [address] [facility] ne 6-14 06-16 tablet (2 [facility] (DILAUDID) 00:00: 00:00 mg total) M edical 2 MG tablet 00 :00 by mouth Cent er every 4 (four) hours as needed for Pain for up to 12 doses. Max Daily Amount: 12 mg HYDROmorpho 2022-0 2022- No 2mg Take [address] [facility] ne 6-14 06-16 tablet (2 [facility] (DILAUDID) 00:00: 00:00 mg total) M edical 2 MG tablet 00 :00 by mouth Cent er every 4 (four) hours as needed for Pain for up to 12 doses. Max Daily Amount: 12 mg HYDROmorpho 2022-0 2022- No 2mg Take [address] [facility] ne 6-14 06-16 tablet (2 [facility] (DILAUDID) 00:00: 00:00 mg total) M edical 2 MG tablet 00 :00 by mouth Cent er every 4 (four) hours as needed for Pain for up to 12 doses. Max Daily Amount: 12 mg HYDROmorpho 0 2021- No 2mg Take [address] [facility] ne 6-08 05-16 tablet (2 [facility] (DILAUDID) 00:00: 00:00 mg total) M edical 2 MG tablet 00 :00 by mouth Cent er every 4 (four) hours as needed for Pain for up to 12 doses. Max Daily Amount: 12 mg HYDROmorpho 2021- No 2mg Take [address] [facility] ne 6-16 tablet (2 [facility] (DILAUDID) 00:00: 00:00 mg total) M edical 2 MG tablet 00 :00 by mouth Cent er every 4 (four) hours as needed for Pain for up to 12 doses. Max Daily Amount: 12 mg Testosteron Testosteron No 1{ml} Testostero e Cypionate e Cypionate 04-04 ne 200 MG/ML 200 MG/ML 00:00: Cypionate 00 200 MG/ML Ketoconazol Ketoconazol 2021- No 5{ml} BID Ketoconazo e 2 % e 2 % 03-26 le 2 % 00:00: 00:00 00 :00 Ketoconazol Ketoconazol 2021-0 2021- No 5{ml} BID Ketoconazo e 2 % e 2 % 03-26 le 2 % 00:00: 00:00 00 :00 Ketoconazol Ketoconazol 2021-0 2021- No 5{ml} BID Ketoconazo e 2 % e 2 % 03-26 le 2 % 00:00: 00:00 00 :00 Amoxicillin Amoxicillin 2021-0 2021- No 1{capsu BID Amoxicilli 500 MG 500 MG 03-26 le} n 500 MG 00:00: 00:00 00 :00 Amoxicillin Amoxicillin 2021-0 2021- No 1{capsu BID Amoxicilli 500 MG 500 MG 03-26 le} n 500 MG 00:00: 00:00 00 :00 sulfamethox 2021-0 2021- No 160mg{t Q.5D Take [address] [facility] azole-trime -14 04-21 rimetho tablet Yancy kes thoprim 00:00: 23:59 prim} (160 mg of Me dical (BACTRIM 00 :00 trimethopr Cente r DS) 800-160 im total) mg per by mouth 2 tablet (two) times daily for 7 days smx-tmp DS (BACTRIM) 800-160 mg tabs (1tab q12 D10). sulfamethox 2021- No 160mg{t Q.5D Take [address] [facility] azole-trime -08 03- rimetho tablet Yancy kes thoprim 00:00: 23:59 prim} (160 mg of Me dical (BACTRIM 00 :00 trimethopr Cente r DS) 800-160 im total) mg per by mouth 2 tablet (two) times daily for 7 days smx-tmp DS (BACTRIM) 800-160 mg tabs (1tab q12 D10). sulfamethox 2021- No 160mg{t Q.5D Take [address] [facility] azole-trime 03-08- rimetho tablet Yancy kes thoprim 00:00: 23:59 prim} (160 mg of Me dical (BACTRIM 00 :00 trimethopr Cente r DS) 800-160 im total) mg per by mouth 2 tablet (two) times daily for 7 days smx-tmp DS (BACTRIM) 800-160 mg tabs (1tab q12 D10). sulfamethox 2021- No 160mg{t Q.5D Take [address] [facility] azole-trime 03-08- rimetho tablet Yancy kes thoprim 00:00: 23:59 prim} (160 mg of Me dical (BACTRIM 00 :00 trimethopr Cente r DS) 800-160 im total) mg per by mouth 2 tablet (two) times daily for 7 days smx-tmp DS (BACTRIM) 800-160 mg tabs (1tab q12 D10). sulfamethox 2021- No 160mg{t Q.5D Take [address] [facility] azole-trime -08 03-21 rimetho tablet Yancy kes thoprim 00:00: 23:59 prim} (160 mg of Me dical (BACTRIM 00 :00 trimethopr Cente r DS) 800-160 im total) mg per by mouth 2 tablet (two) times daily for 7 days smx-tmp DS (BACTRIM) 800-160 mg tabs (1tab q12 D10). sulfamethox 2021- No 160mg{t Q.5D Take [address] [facility] azole-trime -08 03- rimetho tablet Yancy kes thoprim 00:00: 23:59 prim} (160 mg of Me dical (BACTRIM 00 :00 trimethopr Cente r DS) 800-160 im total) mg per by mouth 2 tablet (two) times daily for 7 days smx-tmp DS (BACTRIM) 800-160 mg tabs (1tab q12 D10). sulfamethox 2021- No 160mg{t Q.5D Take [address] [facility] azole-trime -03-15 rimetho tablet Yancy kes thoprim 00:00: 23:59 prim} (160 mg of Me dical (BACTRIM 00 :00 trimethopr Cente r DS) 800-160 im total) mg per by mouth 2 tablet (two) times daily for 7 days smx-tmp DS (BACTRIM) 800-160 mg tabs (1tab q12 D10). sulfamethox 2021- No 160mg{t Q.5D Take [address] [facility] azole-trime -03-15 rimetho tablet Yancy kes thoprim 00:00: 23:59 prim} (160 mg of Me dical (BACTRIM 00 :00 trimethopr Cente r DS) 800-160 im total) mg per by mouth 2 tablet (two) times daily for 7 days smx-tmp DS (BACTRIM) 800-160 mg tabs (1tab q12 D10). HYDROcodone 2021- No 1{tbl} Take [address] -acetaminop 4-08 03-17 tablet by Yancy lopez (NORCO 00:00: 23:59 mouth Medic al 10-325) 00 :00 every 6 Center 10-325 mg (six) per tablet hours as needed for up to 3 days for pain. Max Daily Amount: 4 tablets HYDROcodone 2021- No 1{tbl} Take [address] -acetaminop 4-14 -17 tablet by Yancy lopez (NORCO 00:00: 23:59 mouth Medic al 10-325) 00 :00 every 6 Center 10-325 mg (six) per tablet hours as needed for up to 3 days for pain. Max Daily Amount: 4 tablets HYDROcodone 2021-0 2- No 1{tbl} Take [address] -acetaminop 4-14 04-17 tablet by Yancy lopez (NORCO 00:00: 23:59 mouth Medic al 10-325) 00 :00 every 6 Center 10-325 mg (six) per tablet hours as needed for up to 3 days for pain. Max Daily Amount: 4 tablets HYDROcodone 2021-2021- No 1{tbl} Take [address] -acetaminop 4-14 04-17 tablet by Yancy lopez (NORCO 00:00: 23:59 mouth Medic al 10-325) 00 :00 every 6 Center 10-325 mg (six) per tablet hours as needed for up to 3 days for pain. Max Daily Amount: 4 tablets HYDROcodone 2021-2021- No 1{tbl} Take [address] -acetaminop 4-14 04-17 tablet by Yancy lopez (NORCA 00:00: 23:59 mouth Medic al 10-325) 00 :00 every 6 Center 10-325 mg (six) per tablet hours as needed for up to 3 days for pain. Max Daily Amount: 4 tablets HYDROcodone 2021-2021- No 1{tbl} Take [address] -acetaminop 4-14 04-17 tablet by Yancy lopez ([place] 00:00: 23:59 mouth Medic al 10-325) 00 :00 every 6 Center 10-325 mg (six) per tablet hours as needed for up to 3 days for pain. Max Daily Amount: 4 tablets HYDROcodone 2021-0 2021- No 1{tbl} Take [address] -acetaminop 4-14 04-17 tablet by Yancy lopez (NORCO 00:00: 23:59 mouth Medic al 10-325) 00 :00 every 6 Center 10-325 mg (six) per tablet hours as needed for up to 3 days for pain. Max Daily Amount: 4 tablets HYDROcodone 2021-0 2021- No 1{tbl} Take [address] -acetaminop 4-14 04-17 tablet by Yancy lopez (NORCO 00:00: 23:59 mouth Medic al 10-325) 00 :00 every 6 Center 10-325 mg (six) per tablet hours as needed for up to 3 days for pain. Max Daily Amount: 4 tablets tamsulosin 2-0 2022- No .4mg QD Take [address] [facility] (FLOMAX) 03-01- [facility] 0.4 mg Cap 00:00: 23:59 (0.4 mg Med ical 24 hr 00 :00 total) by Center capsule mouth daily for 14 days. tamsulosin 2022-0 2022- No .4mg QD Take [address] [facility] (FLOMAX) 03-01- [facility] 0.4 mg Cap 00:00: 23:59 (0.4 mg Med ical 24 hr 00 :00 total) by Center capsule mouth daily for 14 days. tamsulosin 2022-0 2022- No .4mg QD Take [address] [facility] (FLOMAX) 03-01- [facility] 0.4 mg Cap 00:00: 23:59 (0.4 mg Med ical 24 hr 00 :00 total) by Center capsule mouth daily for 14 days. tamsulosin 2022-0 2022- No .4mg QD Take [address] [facility] (FLOMAX) 03-01- [facility] 0.4 mg Cap 00:00: 23:59 (0.4 mg Med ical 24 hr 00 :00 total) by Center capsule mouth daily for 14 days. tamsulosin 2022-0 2022- No .4mg QD Take [address] [facility] (FLOMAX) 03-01- [facility] 0.4 mg Cap 00:00: 23:59 (0.4 mg Med ical 24 hr 00 :00 total) by Center capsule mouth daily for 14 days. tamsulosin 2022-0 2022- No .4mg QD Take [address] [facility] (FLOMAX) 03-01- [facility] 0.4 mg Cap 00:00: 23:59 (0.4 mg Med ical 24 hr 00 :00 total) by Center capsule mouth daily for 14 days. tamsulosin 2022-0 2022- No .4mg QD Take [address] [facility] (FLOMAX) 03-01- [facility] 0.4 mg Cap 00:00: 23:59 (0.4 mg Med ical 24 hr 00 :00 total) by Center capsule mouth daily for 14 days. tamsulosin 2021-2021- No .4mg QD Take [address] [facility] (FLOMAX) 03-01 [facility] 0.4 mg Cap 00:00: 23:59 (0.4 mg Med ical 24 hr 00 :00 total) by Center capsule mouth daily for 14 days. baclofen 2021-2021- No 10mg [id number] Take [address] [facility] (LIORESAL) 4-05 04-05 [id number] by mouth 3 [facility] 10 MG 10:08: 00:00 3D (three) Medical tablet 27 :00 times Center daily. baclofen 2021-2021- No 10mg Q.[id number] Take [address] [facility] (LIORESAL) 4-05 04-05 [id number] by mouth 3 [facility] 10 MG 10:08: 00:00 3D (three) Medical tablet 27 :00 times Center daily. baclofen 2021-0 2021- No 10mg Q.[id number] Take [address] [facility] (LIORESAL) 4-05 04-05 [id number] by mouth 3 [facility] 10 MG 10:08: 00:00 3D (three) Medical tablet 27 :00 times Center daily. baclofen 2021-0 2021- No 10mg Q.[id number] Take [address] [facility] (LIORESAL) 4-05 04-05 [id number] by mouth 3 [facility] 10 MG 10:08: 00:00 3D (three) Medical tablet 27 :00 times Center daily. baclofen 2021-0 2- No 10mg Q.[id number] Take [address] [facility] (LIORESAL) 4-05 04-05 [id number] by mouth 3 [facility] 10 MG 10:08: 00:00 3D (three) Medical tablet 27 :00 times Center daily. baclofen 2021-0 2- No 10mg Q.[id number] Take [address] [facility] (LIORESAL) 4-05 04-05 [id number] by mouth 3 [facility] 10 MG 10:08: 00:00 3D (three) Medical tablet 27 :00 times Center daily. baclofen 2021-0 2021- No 10mg Q.[id number] Take [address] [facility] (LIORESAL) 4-05 04-05 [id number] by mouth 3 [facility] 10 MG 10:08: 00:00 3D (three) Medical tablet 27 :00 times Center daily. baclofen 2021-2021- No 10mg Q.[id number] Take [address] [facility] (LIORESAL) 4-05 04-05 [id number] by mouth 3 [facility] 10 MG 10:08: 00:00 3D (three) Medical tablet 27 :00 times Center daily. butalbit/ac 2021-2021- No Take by [facility] etamin/caff 4-05 04-05 mouth as [place] /codeine 10:08: 00:00 needed . Medi lino (BUTALBITAL 24 :00 Center -ACETAMINOP -CAF-COD ORAL) butalbit/ac 2021-2021- No Take [facility] etamin/caff -05 04-05 mouth as [place] /codeine 10:08: 00:00 needed . Medi lino (BUTALBITAL 24 :00 Center -ACETAMINOP -CAF-COD ORAL) butalbit/ac 2021-2021- No Take [facility] etamin/caff -05 04-05 mouth as [place] /codeine 10:08: 00:00 needed . Medi lino (BUTALBITAL 24 :00 Center -ACETAMINOP -CAF-COD ORAL) butalbit/ac 2021-2021- No Take by [facility] etamin/caff 4-05 04-05 mouth as [place] /codeine 10:08: 00:00 needed . Medi lino (BUTALBITAL 24 :00 Center -ACETAMINOP -CAF-COD ORAL) butalbit/ac 2021-2021- No Take [facility] etamin/caff 4-05 04-05 mouth as [place] /codeine 10:08: 00:00 needed . Medi lino (BUTALBITAL 24 :00 Center -ACETAMINOP -CAF-COD ORAL) butalbit/ac 2021- No Take by [facility] etamin/caff 4-05 04-05 mouth as [place] /codeine 10:08: 00:00 needed . Medi lino (BUTALBITAL 24 :00 Center -ACETAMINOP -CAF-COD ORAL) butalbit/ac 2021-2021- No Take by [facility] etamin/caff 4-05 04-05 mouth as [place] /codeine 10:08: 00:00 needed . Medi lino (BUTALBITAL 24 :00 Center -ACETAMINOP -CAF-COD ORAL) butalbit/ac 2021- No Take by [facility] etamin/caff -05 04-05 mouth as [place] /codeine 10:08: 00:00 needed . Medi lino (BUTALBITAL 24 :00 Center -ACETAMINOP -CAF-COD ORAL) tiZANidine 2021-2021- No 4mg QD Take [address] [facility] (ZANAFLEX) 02-27-05 by mouth [facility] 4 MG tablet 10:07: 00:00 nightly. M edical 58 :00 Center tiZANidine 2021-0 2021- No 4mg QD Take [address] [facility] (ZANAFLEX) 02-27-05 by mouth [facility] 4 MG tablet 10:07: 00:00 nightly. edical 58 :00 Center tiZANidine 2021-0 2021- No 4mg QD Take [address] [facility] (ZANAFLEX) 02-27-05 by mouth [facility] 4 MG tablet 10:07: 00:00 nightly. M edical 58 :00 [place] tiZANidine 2021-0 2- No 4mg QD Take [address] [facility] (ZANAFLEX) 02-27-05 by mouth [facility] 4 MG tablet 10:07: 00:00 nightly. M edical 58 :00 Center tiZANidine 2021-0 2- No 4mg QD Take [address] [facility] (ZANAFLEX) 02-27-05 by mouth [facility] 4 MG tablet 10:07: 00:00 nightly. M edical 58 :00 Center tiZANidine 2021-0 2- No 4mg QD Take [address] [facility] (ZANAFLEX) 02-27 04-05 by mouth [facility] 4 MG tablet 10:07: 00:00 nightly. M edical 58 :00 [place] tiZANidine 0 2021- No 4mg QD Take [address] [facility] (ZANAFLEX) 02-27-05 by mouth [facility] 4 MG tablet 10:07: 00:00 nightly. M edical 58 :00 [place] tiZANidine 0 2021- No 4mg QD Take [address] [facility] (ZANAFLEX) 02-27-05 by mouth [facility] 4 MG tablet 10:07: 00:00 nightly. M edical 58 :00 [place] traZODone 2021-0 2021- No [facility] (DESYREL) 3-11 03-10 [facility] 50 MG 22:55: 00:00 Medical tablet 00 :00 [place] traZODone 2021-0 2021- No [facility] (DESYREL) 3-11 03-10 [facility] 50 MG 22:55: 00:00 Medical tablet 00 :00 [place] traZODone 2021-0 2021- No [facility] (DESYREL) 3-11 03-10 [facility] 50 MG 22:55: 00:00 Medical tablet 00 :00 [place] traZODone 2021-0 2021- No [facility] (DESYREL) 3-11 03-10 [facility] 50 MG 22:55: 00:00 Medical tablet 00 :00 [place] traZODone 2021-0 2021- No [facility] (DESYREL) 3-11 03-10 [facility] 50 MG 22:55: 00:00 Medical tablet 00 :00 [place] traZODone 2021-0 2021- No [facility] (DESYREL) 3-11 03-10 [facility] 50 MG 22:55: 00:00 Medical tablet 00 :00 [place] EPINEPHrine EPINEPHrine 0 No EPINEPHrin 1 MG/ML 1 MG/ML 3-11 e 1 MG/ML 00:00: 00 EPINEPHrine EPINEPHrine 0 No EPINEPHrin 1 MG/ML 1 MG/ML 3-11 e 1 MG/ML 00:00: 00 EPINEPHrine EPINEPHrine 2021-0 No EPINEPHrin 1 MG/ML 1 MG/ML 3-11 e 1 MG/ML 00:00: 00 EPINEPHrine EPINEPHrine 2021-0 No EPINEPHrin 1 MG/ML 1 MG/ML 3-11 e 1 MG/ML 00:00: 00 EPINEPHrine EPINEPHrine 2022-0 No EPINEPHrin 1 MG/ML 1 MG/ML 3-11 e 1 MG/ML 00:00: 00 EPINEPHrine EPINEPHrine 2022-0 No EPINEPHrin 1 MG/ML 1 MG/ML 3-11 e 1 MG/ML 00:00: 00 EPINEPHrine EPINEPHrine 2022-0 No EPINEPHrin 1 MG/ML 1 MG/ML 3-11 e 1 MG/ML 00:00: 00 EPINEPHrine EPINEPHrine 2022-0 No EPINEPHrin 1 MG/ML 1 MG/ML 3-11 e 1 MG/ML 00:00: 00 EPINEPHrine EPINEPHrine 2022-0 No EPINEPHrin 1 MG/ML 1 MG/ML 3-11 e 1 MG/ML 00:00: 00 EPINEPHrine EPINEPHrine 2022-0 No EPINEPHrin 1 MG/ML 1 MG/ML 3-11 e 1 MG/ML 00:00: 00 EPINEPHrine EPINEPHrine 2022-0 No EPINEPHrin 1 MG/ML 1 MG/ML 3-11 e 1 MG/ML 00:00: 00 EPINEPHrine EPINEPHrine 2022-0 No EPINEPHrin 1 MG/ML 1 MG/ML 3-11 e 1 MG/ML 00:00: 00 EPINEPHrine EPINEPHrine 2022-0 No EPINEPHrin 1 MG/ML 1 MG/ML 3-11 e 1 MG/ML 00:00: 00 EPINEPHrine EPINEPHrine 2022-0 No EPINEPHrin 1 MG/ML 1 MG/ML 3-11 e 1 MG/ML 00:00: 00 EPINEPHrine EPINEPHrine 2022-0 No EPINEPHrin 1 MG/ML 1 MG/ML 3-11 e 1 MG/ML 00:00: 00 EPINEPHrine EPINEPHrine 2022-0 No EPINEPHrin 1 MG/ML 1 MG/ML 3-11 e 1 MG/ML 00:00: 00 EPINEPHrine EPINEPHrine 2022-0 No EPINEPHrin 1 MG/ML 1 MG/ML 3-11 e 1 MG/ML 00:00: 00 EPINEPHrine EPINEPHrine 2022-0 No EPINEPHrin 1 MG/ML 1 MG/ML 3-11 e 1 MG/ML 00:00: 00 EPINEPHrine EPINEPHrine 2022-0 No EPINEPHrin 1 MG/ML 1 MG/ML 3-11 e 1 MG/ML 00:00: 00 EPINEPHrine EPINEPHrine 2022-0 No EPINEPHrin 1 MG/ML 1 MG/ML 3-11 e 1 MG/ML 00:00: 00 methocarbam 2022-0 2022- No 750mg Q.25D Take [address] [facility] oL 3-10 03-10 mg by [facility] (ROBAXIN) 21:22: 00:00 mouth 4 Medi lino 750 MG 50 :00 (four) Center tablet times daily. methocarbam 2021-0 2- No 750mg Q.25D Take [address] [facility] oL 3-10 03-10 mg by [facility] (ROBAXIN) 21:22: 00:00 mouth 4 Medi lino 750 MG 50 :00 (four) Center tablet times daily. methocarbam 2021-0 2022- No 750mg Q.25D Take [address] [facility] oL 3-10 03-10 mg by [facility] (ROBAXIN) 21:22: 00:00 mouth 4 Medi lino 750 MG 50 :00 (four) Center tablet times daily. methocarbam 2021-0 2- No 750mg Q.25D Take [address] [facility] oL 3-10 03-10 mg by [facility] (ROBAXIN) 21:22: 00:00 mouth 4 Medi lino 750 MG 50 :00 (four) Center tablet times daily. methocarbam 2021-0 2021- No 750mg Q.25D Take [address] [facility] oL 3-10 03-10 mg by [facility] (ROBAXIN) 21:22: 00:00 mouth 4 Medi lino 750 MG 50 :00 (four) Center tablet times daily. methocarbam 2021-0 2- No 750mg Q.25D Take [address] [facility] oL 3-10 03-10 mg by [facility] (ROBAXIN) 21:22: 00:00 mouth 4 Medi lino 750 MG 50 :00 (four) Center tablet times daily. metaxalone 2-0 2022- No 800mg Take [address] [facility] (SKELAXIN) 3-10 03-20 tablet [facility] 800 MG 00:00: 23:59 (800 mg Medical tablet 00 :00 total) by Center mouth 3 (three) times daily as needed for Muscle spasms for up to 10 days. metaxalone 2-0 2022- No 800mg Take [address] [facility] (SKELAXIN) 3-10 03-20 tablet [facility] 800 MG 00:00: 23:59 (800 mg Medical tablet 00 :00 total) by Center mouth 3 (three) times daily as needed for Muscle spasms for up to 10 days. metaxalone 2021-0 2021- No 800mg Take [address] [facility] (SKELAXIN) 3-10 03-20 tablet [facility] 800 MG 00:00: 23:59 (800 mg Medical tablet 00 :00 total) by Center mouth 3 (three) times daily as needed for Muscle spasms for up to 10 days. metaxalone 2021-0 2021- No 800mg Take [address] [facility] (SKELAXIN) 3-10 03-20 tablet [facility] 800 MG 00:00: 23:59 (800 mg Medical tablet 00 :00 total) by Center mouth 3 (three) times daily as needed for Muscle spasms for up to 10 days. metaxalone 2021-0 2021- No 800mg Take [address] [facility] (SKELAXIN) 3-10 03-20 tablet [facility] 800 MG 00:00: 23:59 (800 mg Medical tablet 00 :00 total) by Center mouth 3 (three) times daily as needed for Muscle spasms for up to 10 days. metaxalone 2021-0 2021- No 800mg Take [address] [facility] (SKELAXIN) 3-10 -20 tablet [facility] 800 MG 00:00: 23:59 (800 mg Medical tablet 00 :00 total) by Center mouth 3 (three) times daily as needed for Muscle spasms for up to 10 days. metaxalone 2021-0 2021- No 800mg Take [address] [facility] (SKELAXIN) 3-10 03-20 tablet [facility] 800 MG 00:00: 23:59 (800 mg Medical tablet 00 :00 total) by Center mouth 3 (three) times daily as needed for Muscle spasms for up to 10 days. metaxalone 2021-0 2021- No 800mg Take [address] [facility] (SKELAXIN) 3-10 03-20 tablet [facility] 800 MG 00:00: 23:59 (800 mg Medical tablet 00 :00 total) by Center mouth 3 (three) times daily as needed for Muscle spasms for up to 10 days. HYDROcodone 2021-2021- No 1{tbl} Take [address] [facility] [address] -acetaminop 3-10 03-13 tablet by Yancy lopez (NORCO 00:00: 23:59 mouth Medic al 10-325) 00 :00 every 6 Center 10-325 mg (six) per tablet hours as needed for Pain for up to 3 days. Max Daily Amount: 4 tablets HYDROcodone 2021- No 1{tbl} Take [address] [facility] -acetaminop 3-10 03-13 tablet by Yancy lopez ([facility] 00:00: 23:59 mouth Medic al 10-325) 00 :00 every 6 Center 10-325 mg (six) per tablet hours as needed for Pain for up to 3 days. Max Daily Amount: 4 tablets HYDROcodone 2021- No 1{tbl} Take [address] -acetaminop 3-10 03-13 tablet by Yancy lopez ([place] 00:00: 23:59 mouth Medic al 10-325) 00 :00 every 6 Center 10-325 mg (six) per tablet hours as needed for Pain for up to 3 days. Max Daily Amount: 4 tablets HYDROcodone 2021- No 1{tbl} Take [address] -acetaminop 3-10 03-13 tablet by Yancy lopez ([place] 00:00: 23:59 mouth Medic al 10-325) 00 :00 every 6 Center 10-325 mg (six) per tablet hours as needed for Pain for up to 3 days. Max Daily Amount: 4 tablets HYDROcodone 2021- No 1{tbl} Take [address] -acetaminop 3-10 03-13 tablet by Yancy lopez ([facility] 00:00: 23:59 mouth Medic al 10-325) 00 :00 every 6 Center 10-325 mg (six) per tablet hours as needed for Pain for up to 3 days. Max Daily Amount: 4 tablets HYDROcodone 2021- No 1{tbl} Take [address] -acetaminop 3-10 03-13 tablet by Yancy lopez ([place] 00:00: 23:59 mouth Medic al 10-325) 00 :00 every 6 Center 10-325 mg (six) per tablet hours as needed for Pain for up to 3 days. Max Daily Amount: 4 tablets cyclobenzap 2021- No 1{tbl} Take [address] rine 3-10 03-10 tablet by Aimee (FLEXERIL) 00:00: 00:00 mouth 3 Med ical 10 MG 00 :00 (three) Center tablet times daily as needed. cyclobenzap 2021- No 1{tbl} Take [address] rine 3-10 03-10 [facility] ([facility]) 00:00: 00:00 mouth 3 Med ical 10 MG 00 :00 (three) Center tablet times daily as needed. cyclobenzap 2021- No 1{tbl} Take [address] rine 3-10 03-10 [facility] by [facility] ([facility]) 00:00: 00:00 mouth 3 Med ical 10 MG 00 :00 (three) Center tablet times daily as needed. cyclobenzap 2021- No 1{tbl} Take [address] rine 3-10 03-10 [facility] (FLEXERIL) 00:00: 00:00 mouth 3 Med ical 10 MG 00 :00 (three) Center tablet times daily as needed. cyclobenzap 2021- No 1{tbl} Take [address] [facility] 3-10 03-10 [facility] ([facility]:00: 00:00 mouth 3 Med ical 10 MG 00 :00 (three) Center tablet times daily as needed. cyclobenzap 2021- No 1{tbl} Take [address] [facility] 3-10 03-10 [facility] ([facility]IL) 00:00: 00:00 mouth 3 Med ical 10 MG 00 :00 (three) Center tablet times daily as needed. clorazepate Yes 1{tbl} QD Take [address] [facility] [address] [facility] (TRANXENE) 3-03 tablet [facility] 7.5 MG 00:00: mouth Medical tablet 00 nightly . [place] zonisamide Yes 1{capsu Q.5D Take [address] [facility] [address] [facility] (ZONEGRAN) 3-03 le} capsule by [facility] [facility] 100 MG 00:00: mouth 2 Medical capsule 00 (two) Center times daily. clorazepate Yes 1{tbl} QD Take [address] [facility] [address] [facility] (TRANXENE) 3-03 tablet by [facility] 7.5 MG 00:00: mouth Medical tablet 00 nightly . [place] zonisamide Yes 1{capsu Q.5D Take [address] [facility] [address] [facility] (ZONEGRAN) 3-03 le} capsule by [place] [facility] 100 MG 00:00: mouth 2 Medical capsule 00 (two) Center times daily. clorazepate Yes 1{tbl} QD Take [address] [facility] [address] [facility] (TRANXENE) 3-03 tablet by [facility] 7.5 MG 00:00: mouth Medical tablet 00 nightly . [place] zonisamide Yes 1{capsu Q.5D Take [address] [facility] [address] [facility] (ZONEGRAN) 3-03 le} capsule by [place] [facility] 100 MG 00:00: mouth 2 Medical capsule 00 (two) Center times daily. clorazepate Yes 1{tbl} QD Take [address] [facility] [address] [facility] (TRANXENE) 3-03 tablet by [facility] 7.5 MG 00:00: mouth Medical tablet 00 nightly . [place] zonisamide Yes 1{capsu Q.5D Take [address] [facility] [address] [facility] (ZONEGRAN) 3-03 le} capsule by [place] [facility] 100 MG 00:00: mouth 2 Medical capsule 00 (two) Center times daily. clorazepate Yes 1{tbl} QD Take [address] [facility] [address] [facility] (TRANXENE) 3-03 tablet by [facility] 7.5 MG 00:00: mouth Medical tablet 00 nightly . [place] zonisamide Yes 1{capsu Q.5D Take [address] [facility] [address] [facility] (ZONEGRAN) 3-03 le} capsule by [place] [facility] 100 MG 00:00: mouth 2 Medical capsule 00 (two) Center times daily. clorazepate Yes 1{tbl} QD Take [address] [facility] [address] [facility] (TRANXENE) 3-03 tablet by [facility] 7.5 MG 00:00: mouth Medical tablet 00 nightly . [place] zonisamide Yes 1{capsu Q.5D Take [address] [facility] [address] [facility] (ZONEGRAN) 3-03 le} capsule by [place] [facility] 100 MG 00:00: mouth 2 Medical capsule 00 (two) Center times daily. clorazepate Yes 1{tbl} QD Take [address] [facility] [address] [facility] (TRANXENE) 3-03 tablet by [facility] 7.5 MG 00:00: mouth Medical tablet 00 nightly . [facility] zonisamide 2022-0 Yes 1{capsu Q.5D Take [address] [facility] [address] [facility] (ZONEGRAN) 3-03 le} capsule by [place] [facility] 100 MG 00:00: mouth 2 Medical capsule 00 (two) Center times daily. clorazepate 2022-0 Yes 1{tbl} QD Take [address] [facility] [address] [facility] (TRANXENE) 3-03 tablet by [facility] 7.5 MG 00:00: mouth Medical tablet 00 nightly . [facility] zonisamide 2022-0 Yes 1{capsu Q.5D Take [address] [facility] [address] [facility] (ZONEGRAN) 3-03 le} capsule by [place] [facility] 100 MG 00:00: mouth 2 Medical capsule 00 (two) Center times daily. clorazepate 2022-0 Yes 7.5mg QD Take [address] [facility] (TRANXENE) 3-03 tablet [facility] 7.5 MG 00:00: (7.5 mg Medical tablet 00 total) by Center mouth nightly. zonisamide 2022-0 Yes 100mg Q.5D Take [address] [facility] (ZONEGRAN) 3-03 capsule [facility] 100 MG 00:00: (100 mg Medical capsule 00 total) by Center mouth in the morning and 1 capsule (100 mg total) before bedtime. clorazepate 2022-0 Yes 7.5mg QD Take [address] [facility] (TRANXENE) 3-03 tablet [facility] 7.5 MG 00:00: (7.5 mg Medical tablet 00 total) by Center mouth nightly. zonisamide 2022-0 Yes 100mg Q.5D Take [address] [facility] (ZONEGRAN) 3-03 capsule [facility] 100 MG 00:00: (100 mg Medical capsule 00 total) by Center mouth in the morning and 1 capsule (100 mg total) before bedtime. clorazepate 2022-0 Yes 7.5mg QD Take [address] [facility] (TRANXENE) 3-03 tablet [facility] 7.5 MG 00:00: (7.5 mg Medical tablet 00 total) by Center mouth nightly. zonisamide 2022-0 Yes 100mg Q.5D Take [address] [facility] (ZONEGRAN) 3-03 capsule [facility] 100 MG 00:00: (100 mg Medical capsule 00 total) by Center mouth in the morning and 1 capsule (100 mg total) before bedtime. clorazepate 2022-0 Yes 7.5mg Take 1 [facility] 7.5 mg 3-03 tablet by [facility] tablet 00:00: mouth [place] every Medical evening. Branch zonisamide 2022-0 Yes 100mg Take 1 [facility] 100 mg 3-03 capsule by [facility] capsule 00:00: mouth. [facility] clorazepate 2022-0 Yes 7.5mg Take 1 [facility] 7.5 mg 3-03 tablet by [facility] tablet 00:00: mouth [place] every Medical evening. Branch zonisamide 2022-0 Yes 100mg Take 1 [facility] 100 mg 3-03 capsule by [facility] capsule 00:00: mouth. Medical [facility] clorazepate 2022-0 Yes 7.5mg Take 1 [facility] 7.5 mg 3-03 tablet by [facility] tablet 00:00: mouth every Medical evening. Branch zonisamide 2022-0 Yes 100mg Take 1 [facility] 100 mg 3-03 capsule by [facility] capsule 00:00: mouth. Medical [facility] clorazepate 2022-0 Yes 7.5mg Take 1 [facility] 7.5 mg 3-03 tablet by [facility] tablet 00:00: mouth every Medical evening. Branch zonisamide 2022-0 Yes 100mg Take 1 [facility] 100 mg 3-03 capsule by [facility] capsule 00:00: mouth. Medical [facility] clorazepate 2022-0 Yes 7.5mg Take 1 [facility] 7.5 mg 3-03 tablet by [facility] tablet 00:00: mouth every Medical evening. Branch zonisamide 2022-0 Yes 100mg Take 1 [facility] 100 mg 3-03 capsule by [facility] capsule 00:00: mouth. Medical [facility] clorazepate 2022-0 Yes 7.5mg Take 1 [facility] 7.5 mg 3-03 tablet by [facility] tablet 00:00: mouth [place] every Medical evening. Branch zonisamide 2022-0 Yes 100mg Take 1 [facility] 100 mg 3-03 capsule by [facility] capsule 00:00: mouth. Medical [facility] clorazepate 2022-0 Yes 7.5mg Take 1 [facility] 7.5 mg 3-03 tablet by [facility] tablet 00:00: mouth every Medical evening. Branch zonisamide 2-0 Yes 100mg Take 1 [facility] 100 mg 3-03 capsule by [facility] capsule 00:00: mouth. Medical [facility] clorazepate 2-0 Yes 7.5mg Take 1 [facility] 7.5 mg 3-03 tablet by [facility] tablet 00:00: mouth [place] every Medical evening. Branch zonisamide 2-0 Yes 100mg Take 1 [facility] 100 mg 3-03 capsule by [facility] capsule 00:00: mouth. Medical Branch clorazepate 2021-0 Yes 7.5mg Take 1 [facility] 7.5 mg 3-03 tablet by [facility] tablet 00:00: mouth [place] every Medical evening. Branch zonisamide 2-0 Yes 100mg Take 1 [facility] 100 mg 3-03 capsule by [facility] capsule 00:00: mouth. [place] [facility] clorazepate 2021-0 Yes 7.5mg Take 1 [facility] 7.5 mg 3-03 tablet by [facility] tablet 00:00: mouth [place] every Medical evening. Branch zonisamide 2021-0 Yes 100mg Take 1 [facility] 100 mg 3-03 capsule by [facility] capsule 00:00: mouth. [place] [facility] clorazepate 2021-0 2022- No 7.5mg QD Take [address] [facility] [address] [facility] (TRANXENE) 01-2519 [facility] 7.5 MG 00:00: 00:00 (7.5 mg Medical tablet 00 :00 total) by Center mouth nightly. zonisamide 2021-0 2022- No 100mg Q.5D Take [address] [facility] (ZONEGRAN) 01-25- capsule [facility] 100 MG 00:00: 00:00 (100 mg Medical capsule 00 :00 total) by Center mouth in the morning and 1 capsule (100 mg total) before bedtime. clorazepate 2021-0 2022- No 7.5mg QD Take [address] [facility] [address] [facility] (TRANXENE) 01-25-19 tablet [facility] 7.5 MG 00:00: 00:00 (7.5 mg Medical tablet 00 :00 total) by Center mouth nightly. zonisamide 2021-0 2022- No 100mg Q.5D Take [address] [facility] (ZONEGRAN) 01-25- capsule [facility] 100 MG 00:00: 00:00 (100 mg Medical capsule 00 :00 total) by Center mouth in the morning and 1 capsule (100 mg total) before bedtime. clorazepate 2022-0 2023- No 7.5mg QD Take [address] [facility] [address] [facility] (TRANXENE) 01-25 tablet [facility] 7.5 MG 00:00: 00:00 (7.5 mg Medical tablet 00 :00 total) by Center mouth nightly. zonisamide 2022-0 2023- No 100mg Q.5D Take [address] [facility] (ZONEGRAN) 01-25 capsule [facility] 100 MG 00:00: 00:00 (100 mg Medical capsule 00 :00 total) by Center mouth in the morning and 1 capsule (100 mg total) before bedtime. clorazepate 2022-0 2023- No 7.5mg QD Take [address] [facility] [address] [facility] (TRANXENE) 01-25 tablet [facility] 7.5 MG 00:00: 00:00 (7.5 mg Medical tablet 00 :00 total) by Center mouth nightly. zonisamide 2022-0 2023- No 100mg Q.5D Take [address] [facility] (ZONEGRAN) 01-25 capsule [facility] 100 MG 00:00: 00:00 (100 mg Medical capsule 00 :00 total) by Center mouth in the morning and 1 capsule (100 mg total) before bedtime. clorazepate 2022-0 2023- No 7.5mg QD Take [address] [facility] [address] [facility] (TRANXENE) 01-25 tablet [facility] 7.5 MG 00:00: 00:00 (7.5 mg Medical tablet 00 :00 total) by Center mouth nightly. zonisamide 2022-0 2023- No 100mg Q.5D Take [address] [facility] (ZONEGRAN) 01-25- capsule [facility] 100 MG 00:00: 00:00 (100 mg Medical capsule 00 :00 total) by Center mouth in the morning and 1 capsule (100 mg total) before bedtime. clorazepate 2022-0 2023- No 7.5mg QD Take [address] [facility] [address] [facility] (TRANXENE) 01-25 [facility] 7.5 MG 00:00: 00:00 (7.5 mg Medical tablet 00 :00 total) by Center mouth nightly. zonisamide 2022- No 100mg Q.5D Take [address] [facility] (ZONEGRAN) 01-25 capsule [facility] 100 MG 00:00: 00:00 (100 mg Medical capsule 00 :00 total) by Center mouth in the morning and 1 capsule (100 mg total) before bedtime. DULoxetine Yes as needed [facility] (CYMBALTA[facility] 3-01 . [facility] 60 MG 00:00: Medical capsule 00 [place] QUEtiapine Yes as needed [facility] (SEROquel[facility] 3-01 . [facility] 100 MG 00:00: Medical tablet 00 [place] DULoxetine Yes as needed [facility] (CYMBALTA[facility] 3-01 . [facility] 60 MG 00:00: Medical capsule 00 [place] QUEtiapine Yes as needed [facility] (SEROquel) 3-01 . [facility] 100 MG 00:00: Medical tablet 00 [place] DULoxetine Yes as needed [facility] (CYMBALTA[facility] 3-01 . [facility] 60 MG 00:00: Medical capsule 00 [place] QUEtiapine Yes as needed [facility] (SEROquel) 3-01 [facility] 100 MG 00:00: Medical tablet 00 [place] DULoxetine 0 Yes as needed [facility] (CYMBALTA) 3-01 . [facility] 60 MG 00:00: Medical capsule 00 [place] QUEtiapine Yes as needed [facility] (SEROquel) 3-01 [facility] 100 MG 00:00: Medical tablet 00 [place] DULoxetine 0 Yes as needed [facility] (CYMBALTA) 3-01 . [facility] 60 MG 00:00: Medical capsule 00 [place] QUEtiapine 0 Yes as needed [facility] (SEROquel) 3-01 . [facility] 100 MG 00:00: Medical tablet 00 [place] DULoxetine 0 Yes as needed [facility] (CYMBALTA) 3-01 . [facility] 60 MG 00:00: Medical capsule 00 [place] QUEtiapine 2022-0 Yes as needed [facility] (SEROquel) 3- . [facility] 100 MG 00:00: Medical tablet 00 [place] DULoxetine Yes as needed [facility] (CYMBALTA) 3- . [facility] 60 MG 00:00: Medical capsule 00 [place] QUEtiapine Yes as needed [facility] (SEROquel) 3- . [facility] 100 MG 00:00: Medical tablet 00 [place] DULoxetine Yes as needed [facility] (CYMBALTA) 3- . [facility] 60 MG 00:00: Medical capsule 00 [place] QUEtiapine Yes as needed [facility] (SEROquel) 3- . [facility] 100 MG 00:00: Medical tablet 00 [place] DULoxetine Yes as needed [facility] (CYMBALTA) 3- . [facility] 60 MG 00:00: Medical capsule 00 [place] QUEtiapine Yes as needed [facility] (SEROquel) 3- . [facility] 100 MG 00:00: Medical tablet 00 [place] DULoxetine Yes as needed [facility] (CYMBALTA) 3- . [facility] 60 MG 00:00: Medical capsule 00 [place] QUEtiapine Yes as needed [facility] (SEROquel) 3- . [facility] 100 MG 00:00: Medical tablet 00 [place] DULoxetine Yes as needed [facility] (CYMBALTA) 3- . [facility] 60 MG 00:00: Medical capsule 00 [place] QUEtiapine Yes as needed [facility] (SEROquel) 3 . [facility] 100 MG 00:00: Medical tablet 00 [place] DULoxetine 2022- No as needed [facility] (CYMBALTA) 01-23 . [facility] 60 MG 00:00: 00:00 Medical capsule 00 :00 [place] QUEtiapine 2022- No 200mg QD Take [address] [facility] (SEROquel) 01-23 tablets [facility] 100 MG 00:00: 00:00 (200 mg Medical tablet 00 :00 total) by Center mouth nightly. DULoxetine 2022- No as needed [facility] (CYMBALTA) 01-23 . [facility] 60 MG 00:00: 00:00 Medical capsule 00 :00 [place] QUEtiapine 2021-2022- No 200mg QD Take [address] [facility] (SEROquel) 01-23 tablets [facility] 100 MG 00:00: 00:00 (200 mg Medical tablet 00 :00 total) by Center mouth nightly. DULoxetine 2022- No as needed [facility] (CYMBALTA) 01-23 . [facility] 60 MG 00:00: 00:00 Medical capsule 00 :00 [place] QUEtiapine 2021-2022- No 200mg QD Take [address] [facility] (SEROquel) 01-23 tablets [facility] 100 MG 00:00: 00:00 (200 mg Medical tablet 00 :00 total) by Center mouth nightly. DULoxetine 2022- No as needed [facility] (CYMBALTA) 01-23 . [facility] 60 MG 00:00: 00:00 Medical capsule 00 :00 [place] QUEtiapine 2022- No 200mg QD Take [address] [facility] (SEROquel) 01-23 tablets [facility] 100 MG 00:00: 00:00 (200 mg Medical tablet 00 :00 total) by Center mouth nightly. DULoxetine 2022- No as needed [facility] (CYMBALTA) 01-23 . [facility] 60 MG 00:00: 00:00 Medical capsule 00 :00 [place] QUEtiapine 2021-2022- No 200mg QD Take [address] [facility] (SEROquel) 01-23 tablets [facility] 100 MG 00:00: 00:00 (200 mg Medical tablet 00 :00 total) by Center mouth nightly. DULoxetine 2022- No as needed [facility] (CYMBALTA) 01-23 . [facility] 60 MG 00:00: 00:00 Medical capsule 00 :00 [place] QUEtiapine 2021-2022- No 200mg QD Take [address] [facility] (SEROquel) 01-23 tablets [facility] 100 MG 00:00: 00:00 (200 mg Medical tablet 00 :00 total) by Center mouth nightly. diclofenac 2021- No 2g Q.25D Apply [address] [facility] (Voltaren) 01-22-05 topically [place] [facility] 1 % Gel 00:00: 00:00 4 (four) Medic al 00 :00 times Center daily. traZODone 2021-0 2- No 100mg QD [address] [facility] (DESYREL) 01-22-05 nightly . [facility] 100 MG 00:00: 00:00 Medical tablet 00 :00 Center diclofenac 2021-0 2022- No 2g Q.25D Apply [address] [facility] (Voltaren) 01-22-05 topically [place] [facility] 1 % Gel 00:00: 00:00 4 (four) Medic al 00 :00 times Center daily. traZODone 2021-0 2- No 100mg QD [address] [facility] (DESYREL) 01-22- nightly . [facility] 100 MG 00:00: 00:00 Medical tablet 00 :00 Center diclofenac 2021-0 2- No 2g Q.25D Apply [address] [facility] (Voltaren) 01-22-05 topically [place] [facility] 1 % Gel 00:00: 00:00 4 (four) Medic al 00 :00 times Center daily. traZODone 2021-0 2021- No 100mg QD [address] [facility] (DESYREL) 01-22- nightly . [facility] 100 MG 00:00: 00:00 Medical tablet 00 :00 Center diclofenac 2021-0 2- No 2g Q.25D Apply [address] [facility] (Voltaren) 01-22-05 topically [place] [facility] % Gel 00:00: 00:00 4 (four) Medic al 00 :00 times Center daily. traZODone 2021-0 2- No 100mg QD [address] [facility] (DESYREL) 01-22-05 nightly . [facility] 100 MG 00:00: 00:00 Medical tablet 00 :00 Center diclofenac 2021-0 2- No 2g Q.25D Apply [address] [facility] (Voltaren) 01-22-05 topically [place] [facility] 1 % Gel 00:00: 00:00 4 (four) Medic al 00 :00 times Center daily. traZODone 2021-0 2- No 100mg QD [address] [facility] (DESYREL) 01-22 nightly . [facility] 100 MG 00:00: 00:00 Medical tablet 00 :00 Center diclofenac 2021-0 2- No 2g Q.25D Apply [address] [facility] (Voltaren) 01-22-05 topically [place] [facility] % Gel 00:00: 00:00 4 (four) Medic al 00 :00 times Center daily. traZODone 2021-0 2022- No 100mg QD [address] [facility] (DESYREL) 01-22- nightly . [facility] 100 MG 00:00: 00:00 Medical tablet 00 :00 Center diclofenac 2021-0 2- No 2g Q.25D Apply [address] [facility] (Voltaren) 01-22 topically [place] [facility] % Gel 00:00: 00:00 4 (four) Medic al 00 :00 times Center daily. traZODone 2021-0 2021- No 100mg QD [address] [facility] (DESYREL) 01-22 nightly . [facility] 100 MG 00:00: 00:00 Medical tablet 00 :00 Center diclofenac 2021-0 2021- No 2g Q.25D Apply [address] [facility] (Voltaren) 01-2205 topically [place] [facility] 1 % Gel 00:00: 00:00 4 (four) Medic al 00 :00 times Center daily. traZODone 2021-0 2- No 100mg QD [address] [facility] (DESYREL) 01-22 nightly . [facility] 100 MG 00:00: 00:00 Medical tablet 00 :00 [place] lidocaine 2021-0 2022- No 1{patch Q24H Place [address] [facility] (LIDODERM) 01-22 } patch onto [facility] 5 % patch 00:00: 23:59 the skin Med ical 00 :00 daily for Center 30 days Remove & Discard patch within 12 hours or as directed by . lidocaine 2-0 2022- No 1{patch Q24H Place [address] [facility] (LIDODERM) 01-2230 } patch onto [facility] 5 % patch 00:00: 23:59 the skin Med ical 00 :00 daily for Center 30 days Remove & Discard patch within 12 hours or as directed by . lidocaine 2021-2021- No 1{patch Q24H Place [address] [facility] (LIDODERM) 01-2230 } patch onto [facility] 5 % patch 00:00: 23:59 the skin Med ical 00 :00 daily for Center 30 days Remove & Discard patch within 12 hours or as directed by MD. lidocaine 2021-2021- No 1{patch Q24H Place [address] [facility] (LIDODERM) 01-22 } patch onto [facility] 5 % patch 00:00: 23:59 the skin Med ical 00 :00 daily for Center 30 days Remove & Discard patch within 12 hours or as directed by MD. lidocaine 2021-2021- No 1{patch Q24H Place [address] [facility] (LIDODERM) 01-22 } patch onto [facility] 5 % patch 00:00: 23:59 the skin Med ical 00 :00 daily for Center 30 days Remove & Discard patch within 12 hours or as directed by MD. lidocaine 2021- No 1{patch Q24H Place [address] [facility] (LIDODERM) 01-22 } patch onto [facility] 5 % patch 00:00: 23:59 the skin Med ical 00 :00 daily for Center 30 days Remove & Discard patch within 12 hours or as directed by MD. lidocaine 2021- No 1{patch Q24H Place [address] [facility] (LIDODERM) 01-22 } patch onto [facility] 5 % patch 00:00: 23:59 the skin Med ical 00 :00 daily for Center 30 days Remove & Discard patch within 12 hours or as directed by MD. lidocaine 2021- No 1{patch Q24H Place [address] [facility] (LIDODERM) 01-22 } patch onto [facility] 5 % patch 00:00: 23:59 the skin Med ical 00 :00 daily for Center 30 days Remove & Discard patch within 12 hours or as directed by MD. lamoTRIgine Yes [facility] (LaMICtal) 2- [facility] 100 MG 00:00: Medical tablet 00 Center doxycycline Yes acne 50mg Take [address] [facility] (VIBRAMYCIN 01-20 rosacea by mouth 2 [facility] ) 50 MG 00:00: (two) Medical capsule 00 times Center daily as needed . lamoTRIgine 2-[address] [facility] (LaMICtal) 2-26 [facility] 100 MG 00:00: Medical tablet 00 Center doxycycline 2021-0 Yes acne 50mg Take [address] [facility] (VIBRAMYCIN 2-26 rosacea by mouth 2 [facility] ) 50 MG 00:00: (two) Medical capsule 00 times Center daily as needed . lamoTRIgine 2021-[address] [facility] (LaMICtal) 2-26 [facility] 100 MG 00:00: Medical tablet 00 Center doxycycline 2021-0 Yes acne 50mg Take [address] [facility] (VIBRAMYCIN 2-26 rosacea by mouth 2 [facility] ) 50 MG 00:00: (two) Medical capsule 00 times Center daily as needed . lamoTRIgine 2021-[address] [facility] (LaMICtal) 2-26 [facility] 100 MG 00:00: Medical tablet 00 [facility] doxycycline 2021-0 Yes acne 50mg Take [address] [facility] (VIBRAMYCIN 2-26 rosacea by mouth 2 [facility] ) 50 MG 00:00: (two) Medical capsule 00 times Center daily as needed . lamoTRIgine 2021-[address] [facility] (LaMICtal) 2-26 [facility] 100 MG 00:00: Medical tablet 00 [facility] doxycycline 2021-0 Yes acne 50mg Take [address] [facility] (VIBRAMYCIN 2-26 rosacea by mouth 2 [facility] ) 50 MG 00:00: (two) Medical capsule 00 times Center daily as needed . lamoTRIgine 2021-[address] [facility] (LaMICtal) 2-26 [facility] 100 MG 00:00: Medical tablet 00 Center doxycycline 2-0 Yes acne 50mg Take [address] [facility] (VIBRAMYCIN 2-26 rosacea by mouth 2 [facility] ) 50 MG 00:00: (two) Medical capsule 00 times Center daily as needed . lamoTRIgine 2021-[address] [facility] (LaMICtal) 2-26 [facility] 100 MG 00:00: Medical tablet 00 Center doxycycline 2-0 Yes acne 50mg Take [address] [facility] (VIBRAMYCIN 2-26 rosacea by mouth 2 [facility] ) 50 MG 00:00: (two) Medical capsule 00 times Center daily as needed . lamoTRIgine 2-[address] [facility] (LaMICtal) 2-26 [facility] 100 MG 00:00: Medical tablet 00 Center doxycycline Yes acne 50mg Take [address] [facility] (VIBRAMYCIN 2-26 rosacea by mouth 2 [facility] ) 50 MG 00:00: (two) Medical capsule 00 times Center daily as needed . lamoTRIgine Yes [facility] (LaMICtal) 2-26 [facility] 100 MG 00:00: Medical tablet 00 [place] doxycycline Yes acne 50mg Take [address] [facility] (VIBRAMYCIN 2-26 rosacea capsule [facility] ) 50 MG 00:00: (50 mg Medical capsule 00 total) by Center mouth 2 (two) times daily as needed. lamoTRIgine Yes [facility] (LaMICtal) 2-26 [facility] 100 MG 00:00: Medical tablet 00 [place] doxycycline Yes acne 50mg Take [address] [facility] (VIBRAMYCIN 2-26 rosacea capsule [facility] ) 50 MG 00:00: (50 mg Medical capsule 00 total) by Center mouth 2 (two) times daily as needed. lamoTRIgine Yes [facility] (LaMICtal) 2-26 [facility] 100 MG 00:00: Medical tablet 00 [place] doxycycline Yes acne 50mg Take [address] [facility] (VIBRAMYCIN 2-26 rosacea capsule [facility] ) 50 MG 00:00: (50 mg Medical capsule 00 total) by Center mouth 2 (two) times daily as needed. lamoTRIgine 2022- No [facility] 2-20 05-19 [facility] 100 MG 00:00: 00:00 Medical tablet 00 :00 [place] doxycycline 2022- No acne 50mg Take [address] [facility] (VIBRAMYCIN 2-26 -19 rosacea capsule [facility] ) 50 MG 00:00: 00:00 (50 mg Medical capsule 00 :00 total) by Center mouth 2 (two) times daily as needed. lamoTRIgine 2022- No [facility] (La[facility]tal[facility] 2-20 05-19 [facility] 100 MG 00:00: 00:00 Medical tablet 00 :00 [place] doxycycline 2022- No acne 50mg Take [address] [facility] (VIBRAMYCIN 2-20 05- rosacea capsule [facility] ) 50 MG 00:00: 00:00 (50 mg Medical capsule 00 :00 total) by Center mouth 2 (two) times daily as needed. lamoTRIgine 2022- No [facility] (LaMICtal[facility] 01-20- [facility] 100 MG 00:00: 00:00 Medical tablet 00 :00 [place] doxycycline 2022- No acne 50mg Take [address] [facility] (VIBRAMYCIN 01-20 rosacea capsule [facility] ) 50 MG 00:00: 00:00 (50 mg Medical capsule 00 :00 total) by Center mouth 2 (two) times daily as needed. lamoTRIgine 2022- No [facility] (La[facility]tal) 01-20 [facility] 100 MG 00:00: 00:00 Medical tablet 00 :00 [place] doxycycline 2022- No acne 50mg Take [address] [facility] (VIBRAMYCIN 01-20 rosacea capsule [facility] ) 50 MG 00:00: 00:00 (50 mg Medical capsule 00 :00 total) by Center mouth 2 (two) times daily as needed. lamoTRIgine 2022- No [facility] (LaMICtal) 01-20 [facility] 100 MG 00:00: 00:00 Medical tablet 00 :00 [place] doxycycline 2022- No acne 50mg Take [address] [facility] (VIBRAMYCIN 01-20 rosacea capsule [facility] ) 50 MG 00:00: 00:00 (50 mg Medical capsule 00 :00 total) by Center mouth 2 (two) times daily as needed. lamoTRIgine 2022- No [facility] (LaMICtal) 01-20 [facility] 100 MG 00:00: 00:00 Medical tablet 00 :00 [place] doxycycline 2022- No acne 50mg Take [address] [facility] (VIBRAMYCIN 01-20 rosacea capsule [facility] ) 50 MG 00:00: 00:00 (50 mg Medical capsule 00 :00 total) by Center mouth 2 (two) times daily as needed. hydrOXYzine 2021- No [facility] (ATARAX[facility] 50 01-20 04-05 [facility] tablet 00:00: 00:00 Medical 00 :00 [place] hydrOXYzine 2021-0 2021- No [facility] (ATARAX[facility] 50 2-26 04-05 [facility] tablet 00:00: 00:00 Medical 00 :00 [place] hydrOXYzine 2021-0 2021- No [facility] (ATARAX[facility] 50 2-26 04-05 [facility] tablet 00:00: 00:00 Medical 00 :00 [place] hydrOXYzine 2021-0 2021- No [facility] (ATARAX) 50 2-26 04-05 [facility] tablet 00:00: 00:00 Medical 00 :00 [place] hydrOXYzine 2021-0 2021- No [facility] (ATARAX) 50 2-26 04-05 [facility] tablet 00:00: 00:00 Medical 00 :00 [place] hydrOXYzine 2021-0 2021- No [facility] (ATARAX) 50 2-26 04-05 [facility] tablet 00:00: 00:00 Medical 00 :00 [place] hydrOXYzine 2021-0 2021- No [facility] (ATARAX) 50 2-26 04-05 [facility] tablet 00:00: 00:00 Medical 00 :00 [place] hydrOXYzine 2021-0 2021- No [facility] (ATARAX) 50 2-26 04-05 [facility] tablet 00:00: 00:00 Medical 00 :00 [place] Adapalene Adapalene 0 2021- No QD Adapalene 0.1 % 0.1 % 01-16-23 0.1 % 00:00: 00:00 00 :00 Adapalene Adapalene 0 2021- No QD Adapalene 0.1 % 0.1 % 01-16-23 0.1 % 00:00: 00:00 00 :00 Adapalene Adapalene 2021-0 2021- No QD Adapalene 0.1 % 0.1 % 01-16-23 0.1 % 00:00: 00:00 00 :00 Adapalene Adapalene 0 2021- No QD Adapalene 0.1 % 0.1 % 01-16 05-23 0.1 % 00:00: 00:00 00 :00 Adapalene Adapalene 0 2021- No QD Adapalene 0.1 % 0.1 % 01-16 0.1 % 00:00: 00:00 00 :00 Adapalene Adapalene 2021- No QD Adapalene 0.1 % 0.1 % 01-16 0.1 % 00:00: 00:00 00 :00 Adapalene Adapalene 2021- No QD Adapalene 0.1 % 0.1 % 01-16 0.1 % 00:00: 00:00 00 :00 Adapalene Adapalene 2021- No QD Adapalene 0.1 % 0.1 % 01-16 0.1 % 00:00: 00:00 00 :00 Adapalene Adapalene 2021- No QD Adapalene 0.1 % 0.1 % 01-16 0.1 % 00:00: 00:00 00 :00 adapalene 2021- No [address] [facility] (DIFFERIN) 01-16-05 applicatio [facility] 0.1 % gel 00:00: 00:00 n in the Med ical 00 :00 evening Center adapalene 2021- No [address] [facility] (DIFFERIN) 01-16-05 applicatio [facility] 0.1 % gel 00:00: 00:00 n in the Med ical 00 :00 evening Center adapalene 2021- No [address] [facility] (DIFFERIN) 01-16-05 applicatio [facility] 0.1 % gel 00:00: 00:00 n in the Med ical 00 :00 evening Center adapalene 2021- No [address] [facility] (DIFFERIN) 01-16-05 applicatio Yancy kes 0.1 % gel 00:00: 00:00 n in the Med ical 00 :00 evening Center adapalene 2021- No [address] [facility] (DIFFERIN) 01-16-05 applicatio Yancy kes 0.1 % gel 00:00: 00:00 n in the Med ical 00 :00 evening Center adapalene 2021- No [address] [facility] (DIFFERIN) 01-16-05 applicatio Yancy kes 0.1 % gel 00:00: 00:00 n in the Med ical 00 :00 evening Center adapalene 2- No [address] [facility] (DIFFERIN) 01-16-05 applicatio Yancy kes 0.1 % gel 00:00: 00:00 n in the Med ical 00 :00 evening Center adapalene 2- No [address] [facility] (DIFFERIN) 01-16- applicatio Yancy kes 0.1 % gel 00:00: 00:00 n in the Med ical 00 :00 evening Center Doxycycline Doxycycline 2021- No 1{table BID Doxycyclin Hyclate 50 Hyclate 50 01-16 t} e Hyclate MG MG 00:00: 00:00 50 MG 00 :00 Doxycycline Doxycycline 2021- No 1{table BID Doxycyclin Hyclate 50 Hyclate 50 01-1624 t} e Hyclate MG MG 00:00: 00:00 50 MG 00 :00 Doxycycline Doxycycline 2021-2- No 1{table BID Doxycyclin Hyclate 50 Hyclate 50 01-1624 t} e Hyclate MG MG 00:00: 00:00 50 MG 00 :00 Doxycycline Doxycycline 2021- No 1{table BID Doxycyclin Hyclate 50 Hyclate 50 01-1624 t} e Hyclate MG MG 00:00: 00:00 50 MG 00 :00 Doxycycline Doxycycline 2- No 1{table BID Doxycyclin Hyclate 50 Hyclate 50 01-1624 t} e Hyclate MG MG 00:00: 00:00 50 MG 00 :00 doxycycline 2021-2- No [address] [facility]10 [facility] 00 :00 [facility] doxycycline 2021-2- No [address] hyclate 50 01-16-10 [facility] 00 :00 [facility] doxycycline 2021-2- No [address] hyclate 50 01-16-10 [facility]:00 [facility] 00 :00 [place] doxycycline 2021-0 2- No [address] hyclate 50 2-22 03-10 [facility]: [facility]:00 Medical 00 :00 [place] doxycycline 2021-0 2- No [address] hyclate 50 2-22 03-10 [facility] 00:[facility]: 00:00 Medical 00 :00 [place] doxycycline 2021-0 2- No [address] hyclate 50 2-22 03-10 [facility] 00:[facility]: 00:00 Medical 00 :00 [place] No known 2021-0 No No known [facility] 2[facility] [facility] No known 2021-0 No No known [facility] di medications 2-[address] [facility] Testosteron Testosteron 0 No 1{ml} Testostero e Cypionate e Cypionate 2 ne 200 MG/ML 200 MG/ML 00:00: Cypionate 00 200 MG/ML Escitalopra Escitalopra 0 No 1{table QD Escitalopr m Oxalate m Oxalate 2-09 t} am Oxalate 20 MG 20 MG 00:00: 20 MG 00 Testosteron Testosteron 0 No 1{ml} Testostero e Cypionate e Cypionate - ne 200 MG/ML 200 MG/ML 00:00: Cypionate 00 200 MG/ML Escitalopra Escitalopra 2021-0 No 1{table QD Escitalopr m Oxalate m Oxalate 2-09 t} am Oxalate 20 MG 20 MG 00:00: 20 MG 00 Testosteron Testosteron 0 No 1{ml} Testostero e Cypionate e Cypionate 2-09 ne 200 MG/ML 200 MG/ML 00:00: Cypionate 00 200 MG/ML Escitalopra Escitalopra 2021-0 No 1{table QD Escitalopr m Oxalate m Oxalate 2-09 t} am Oxalate 20 MG 20 MG 00:00: 20 MG 00 Sildenafil Sildenafil 2022- No 1{table QD Sildenafil Citrate 100 Citrate 100 2 05-10 t_as_ne Citrate MG MG 00:00: 00:00 eded} 100 MG 00 :00 Sildenafil Sildenafil 0 2021- No 1{table QD Sildenafil Citrate 100 Citrate 100 01-03 t_as_ne Citrate MG MG 00:00: 00:00 eded} 100 MG 00 :00 Sildenafil Sildenafil 2021-2021- No 1{table QD Sildenafil Citrate 100 Citrate 100 01-03 t_as_ne Citrate MG MG 00:00: 00:00 eded} 100 MG 00 :00 escitalopra 2021-0 2022- No QD daily [facility]:00 [facility] 20 MG 00 :00 Center tablet sildenafiL 2021- No [address] [facility] 01-03 [facility] needed [facility] 00:00: [facility]:00 [facility] tablet 00 :00 Center escitalopra 2022-0 2022- No QD daily [facility] ox[facility]ate 01-[facility] ([facility] 00:00: 00:00 Medical 20 MG 00 :00 Center tablet sildenafiL 2021-0 2021- No [address] [facility] [address] [facility] ([facility] 01-03- [facility] 00:00: 00:00 Medical tablet 00 :00 Center escitalopra 2022-0 2022- No QD daily [facility] oxalate 01-03 [facility] ([facility] 00:00: 00:00 Medical 20 MG 00 :00 Center tablet sildenafiL 2021-0 2- No [address] [facility] [address] [facility] ([facility] 01-03 [facility] 100 MG 00:00: 00:00 Medical tablet 00 :00 Center escitalopra 2022-0 2022- No QD daily [facility] ox[facility]ate [facility]-03[facility] 00:[facility]: 00:00 Medical 20 MG 00 :00 Center tablet sildenafiL 2021-0 2021- No [address] [facility] [address] [facility] ([facility] 01-03-05 [facility] 100 MG 00:00: 00:00 Medical tablet 00 :00 Center escitalopra 2022-0 2022- No QD daily [facility] ox[facility]ate 01-03- [facility] 00:[facility]: 00:00 Medical 20 MG 00 :00 Center tablet sildenafiL 2021-0 2022- No [address] [facility] [address] [facility] ([facility] 01-03-05 [facility] MG 00:00: 00:00 Medical tablet 00 :00 Center escitalopra 2022-0 2022- No QD daily [facility] oxalate 01-03-05 [facility] ([facility] 00:00: 00:00 Medical 20 MG 00 :00 Center tablet sildenafiL 2021-0 2- No [address] [facility] [address] [facility] ([facility]) 01-03-05 [facility] 100 MG 00:00: 00:00 Medical tablet 00 :00 Center escitalopra 2021-0 2022- No QD daily [facility] oxalate 01-03-05 [facility] ([facility] 00:00: 00:00 Medical 20 MG 00 :00 Center tablet sildenafiL 2021-0 2- No [address] [facility] [address] [facility] ([facility]) 01-03- [facility] 100 MG 00:00: 00:00 Medical tablet 00 :00 Center escitalopra 2-0 2022- No QD daily [facility] oxalate 01-03-05 [facility] ([facility] 00:00: 00:00 Medical 20 MG 00 :00 Center tablet sildenafiL 2021-0 2- No [address] [facility] [address] [facility] ([facility]) 01-03-05 [facility] MG 00:00: 00:00 Medical tablet 00 :00 Center escitalopra 2021-0 Yes TAKE [address] [facility] oxalate 2-05 [facility]T [facility] 00:00: MOUTH Medical 10 MG 00 EVERY DAY Center tablet FOR 30 DAYS escitalopra 2021-0 Yes TAKE [address] [facility] oxalate 2-05 [facility] 00:00: MOUTH Medical 10 MG 00 EVERY DAY Center tablet FOR 30 DAYS escitalopra 2021-0 Yes TAKE [address] [facility] oxalate 2-05 [facility] 00:00: MOUTH Medical 10 MG 00 EVERY DAY Center tablet FOR 30 DAYS escitalopra 2021-0 Yes TAKE [address] [facility] oxalate 2-05 [facility] 00:00: MOUTH Medical 10 MG 00 EVERY DAY Center tablet FOR 30 DAYS escitalopra Yes TAKE [address] [facility] oxalate 2-05 [facility] 00:00: MOUTH Medical 10 MG 00 EVERY DAY Center tablet FOR 30 DAYS escitalopra 0 Yes TAKE [address] [facility] oxalate 2-05 [facility] 00:00: MOUTH Medical 10 MG 00 EVERY DAY Center tablet FOR 30 DAYS escitalopra 0 Yes TAKE [address] [facility] oxalate 2-05 [facility] 00:00: MOUTH Medical 10 MG 00 EVERY DAY Center tablet FOR 30 DAYS escitalopra 0 Yes TAKE [address] [facility] oxalate 2-05 [facility] 00:00: MOUTH Medical 10 MG 00 EVERY DAY Center tablet FOR 30 DAYS escitalopra Yes TAKE [address] [facility] oxalate 2-05 [facility] 00:00: MOUTH Medical 10 MG 00 EVERY DAY Center tablet FOR 30 DAYS escitalopra Yes TAKE [address] [facility] oxalate 2-05 [facility] 00:00: MOUTH Medical 10 MG 00 EVERY DAY Center tablet FOR 30 DAYS escitalopra Yes TAKE [address] [facility] oxalate 2-05 [facility] 00:00: MOUTH Medical 10 MG 00 EVERY DAY Center tablet FOR 30 DAYS escitalopra 2021-2022- No TAKE [address] [facility] oxalate 2-05 06-19 TABLET BY [facility] ([facility]) 00:00: 00:00 MOUTH Medica l 10 MG 00 :00 EVERY DAY Center tablet FOR 30 DAYS escitalopra 2021-0 2022- No TAKE [address] [facility] oxalate 2-05 06-19 TABLET BY [facility] ([facility]) 00:00: 00:00 MOUTH Medica l 10 MG 00 :00 EVERY DAY Center tablet FOR 30 DAYS escitalopra 2021-2022- No TAKE [address] [facility] oxalate 2-05 06-19 TABLET BY [facility] ([facility]) 00:00: 00:00 MOUTH Medica l 10 MG 00 :00 EVERY DAY Center tablet FOR 30 DAYS escitalopra 2021-0 2022- No TAKE [address] [facility] oxalate 2-05 06-19 TABLET BY [facility] ([facility]) 00:00: 00:00 MOUTH Medica l 10 MG 00 :00 EVERY DAY Center tablet FOR 30 DAYS escitalopra 2022- No TAKE [address] [facility] oxalate 12-30 TABLET BY [facility] ([facility]) 00:00: 00:00 MOUTH Medica l 10 MG 00 :00 EVERY DAY Center tablet FOR 30 DAYS escitalopra 2022- No TAKE [address] [facility] oxalate 12-30 TABLET BY [facility] ([facility]) 00:00: 00:00 MOUTH Medica l 10 MG 00 :00 EVERY DAY Center tablet FOR 30 DAYS Sildenafil Sildenafil 2021- No 1{table QD Sildenafil Citrate 50 Citrate 50 12-08 t_as_ne Citrate 50 MG MG 00:00: 00:00 eded} MG 00 :00 Sildenafil Sildenafil 2021- No 1{table QD Sildenafil Citrate 50 Citrate 50 12-08 t_as_ne Citrate 50 MG MG 00:00: 00:00 eded} MG 00 :00 Sildenafil Sildenafil 2021- No 1{table QD Sildenafil Citrate 50 Citrate 50 12-08 t_as_ne Citrate 50 MG MG 00:00: 00:00 eded} MG 00 :00 [facility] No 1{ml} Testostero e Cypionate e Cypionate 12-23 ne 200 MG/ML 200 MG/ML 00:00: Cypionate 00 200 MG/ML Testosteron Testosteron 2020-11 No 1{ml} Testostero e Cypionate e Cypionate 12-23 ne 200 MG/ML 200 MG/ML 00:00: Cypionate 00 200 MG/ML Testosteron Testosteron 2020-11 No 1{ml} Testostero e Cypionate e Cypionate 12-23 ne 200 MG/ML 200 MG/ML 00:00: Cypionate 00 200 MG/ML Testosteron Testosteron 2020-11 No 1{ml} Testostero e Cypionate e Cypionate 12-23 ne 200 MG/ML 200 MG/ML 00:00: Cypionate 00 200 MG/ML testosteron 2020-11- No Q14D every [address] e cypionate 12-23 (fourteen) [facility] ([facility]: 00:00 days . Med ical ERONE 00 :00 Center CYPIONATE) 200 mg/mL injection testosteron 2020-11- No Q14D every [address] e cypionate 12-23 (fourteen) [facility] ([facility] 00:00: 00:00 days . Med ical ERONE 00 :00 Center CYPIONATE) 200 mg/mL injection testosteron 2020-11- No Q14D every [address] e cypionate 12-23 (fourteen) [facility] ([facility] 00:00: 00:00 days . Med ical ERONE 00 :00 Center CYPIONATE) 200 mg/mL injection testosteron 2020-11- No Q14D every [address] e cypionate 12-23 (fourteen) [facility] ([facility] 00:00: 00:00 days . Med ical ERONE 00 :00 Center CYPIONATE) 200 mg/mL injection testosteron 2020-11- No Q14D every [address] e cypionate 12-23 (fourteen) [facility] ([facility] 00:00: 00:00 days . Med ical ERONE 00 :00 Center CYPIONATE) 200 mg/mL injection testosteron 2020-11- No Q14D every [address] e cypionate 12-23 (fourteen) [facility] ([facility] 00:00: 00:00 days . Med ical ERONE 00 :00 Center CYPIONATE) 200 mg/mL injection testosteron 2020-11- No Q14D every [address] e cypionate 12-23 (fourteen) [facility] ([facility] 00:00: 00:00 days . Med ical ERONE 00 :00 Center CYPIONATE) 200 mg/mL injection testosteron 2020-11- No Q14D every [address] e cypionate 12-23 (fourteen) [facility] ([facility] 00:00: 00:00 days . Med ical ERONE 00 :00 Center CYPIONATE) 200 mg/mL injection Triamcinolo Triamcinolo 2020-11 No 1{appli BID Triamcinol ne ne 1-17 cation_ one Acetonide Acetonide 00:00: to_affe Acetonide 0.025 % 0.025 % 00 cted_ar 0.025 % ea} Triamcinolo Triamcinolo 2020-11 No 1{appli BID Triamcinol ne ne 1-17 cation_ one Acetonide Acetonide 00:00: to_affe Acetonide 0.025 % 0.025 % 00 cted_ar 0.025 % ea} Triamcinolo Triamcinolo 2020-11 No 1{appli BID Triamcinol ne ne 1-17 cation_ one Acetonide Acetonide 00:00: to_affe Acetonide 0.025 % 0.025 % 00 cted_ar 0.025 % ea} Triamcinolo Triamcinolo 2020-11 No 1{appli BID Triamcinol ne ne 1-17 cation_ one Acetonide Acetonide 00:00: to_affe Acetonide 0.025 % 0.025 % 00 cted_ar 0.025 % ea} Triamcinolo Triamcinolo 2020-11 No 1{appli BID Triamcinol ne ne 1-17 cation_ one Acetonide Acetonide 00:00: to_affe Acetonide 0.025 % 0.025 % 00 cted_ar 0.025 % ea} Triamcinolo Triamcinolo 2020-11 No 1{appli BID Triamcinol ne ne 1-17 cation_ one Acetonide Acetonide 00:00: to_affe Acetonide 0.025 % 0.025 % 00 cted_ar 0.025 % ea} Triamcinolo Triamcinolo 2020-11 No 1{appli BID Triamcinol ne ne 1-17 cation_ one Acetonide Acetonide 00:00: to_affe Acetonide 0.025 % 0.025 % 00 cted_ar 0.025 % ea} Triamcinolo Triamcinolo 2020-11 No 1{appli BID Triamcinol ne ne 1-17 cation_ one Acetonide Acetonide 00:00: to_affe Acetonide 0.025 % 0.025 % 00 cted_ar 0.025 % ea} Triamcinolo Triamcinolo 2020-11 No 1{appli BID Triamcinol ne ne 1-17 cation_ one Acetonide Acetonide 00:00: to_affe Acetonide 0.025 % 0.025 % 00 cted_ar 0.025 % ea} Triamcinolo Triamcinolo 2020-11 No 1{appli BID Triamcinol ne ne 1-17 cation_ one Acetonide Acetonide 00:00: to_affe Acetonide 0.025 % 0.025 % 00 cted_ar 0.025 % ea} Triamcinolo Triamcinolo 2020-11 No 1{appli BID Triamcinol ne ne 1-17 cation_ one Acetonide Acetonide 00:00: to_affe Acetonide 0.025 % 0.025 % 00 cted_ar 0.025 % ea} Triamcinolo Triamcinolo 2020-11 No 1{appli BID Triamcinol ne ne 1-17 cation_ one Acetonide Acetonide 00:00: to_affe Acetonide 0.025 % 0.025 % 00 cted_ar 0.025 % ea} Triamcinolo Triamcinolo 2020-11 No 1{appli BID Triamcinol ne ne 1-17 cation_ one Acetonide Acetonide 00:00: to_affe Acetonide 0.025 % 0.025 % 00 cted_ar 0.025 % ea} Triamcinolo Triamcinolo 2020-11 No 1{appli BID Triamcinol ne ne 1-17 cation_ one Acetonide Acetonide 00:00: to_affe Acetonide 0.025 % 0.025 % 00 cted_ar 0.025 % ea} Triamcinolo Triamcinolo 2020-11 No 1{appli BID Triamcinol ne ne 1-17 cation_ one Acetonide Acetonide 00:00: to_affe Acetonide 0.025 % 0.025 % 00 cted_ar 0.025 % ea} Triamcinolo Triamcinolo 2020-11 No 1{appli BID Triamcinol ne ne 1-17 cation_ one Acetonide Acetonide 00:00: to_affe Acetonide 0.025 % 0.025 % 00 cted_ar 0.025 % ea} Triamcinolo Triamcinolo 2020-11 No 1{appli BID Triamcinol ne ne 1-17 cation_ one Acetonide Acetonide 00:00: to_affe Acetonide 0.025 % 0.025 % 00 cted_ar 0.025 % ea} Triamcinolo Triamcinolo 2020-11 No 1{appli BID Triamcinol ne ne 1-17 cation_ one Acetonide Acetonide 00:00: to_affe Acetonide 0.025 % 0.025 % 00 cted_ar 0.025 % ea} Triamcinolo Triamcinolo 2020-11 No 1{appli BID Triamcinol ne ne 1-17 cation_ one Acetonide Acetonide 00:00: to_affe Acetonide 0.025 % 0.025 % 00 cted_ar 0.025 % ea} Triamcinolo Tricinolo 2020-11 No 1{appli BID Triamcinol ne ne 1-17 cation_ one Acetonide Acetonide 00:00: to_affe Acetonide 0.025 % 0.025 % 00 cted_ar 0.025 % ea} Triamcinolo Tricinolo 2020-11 No 1{appli BID Triamcinol ne ne 1-17 cation_ one Acetonide Acetonide 00:00: to_affe Acetonide 0.025 % 0.025 % 00 cted_ar 0.025 % ea} Triamcinolo Tricinolo 2020-11 No 1{appli BID Triamcinol ne ne 1-17 cation_ one Acetonide Acetonide 00:00: to_affe Acetonide 0.025 % 0.025 % 00 cted_ar 0.025 % ea} Triamcinolo Tricinolo 2020-11 No 1{appli BID Triamcinol ne ne 1-17 cation_ one Acetonide Acetonide 00:00: to_affe Acetonide 0.025 % 0.025 % 00 cted_ar 0.025 % ea} Triamcinolo Triamcinolo 2020-11 No 1{appli BID Triamcinol ne ne 1-17 cation_ one Acetonide Acetonide 00:00: to_affe Acetonide 0.025 % 0.025 % 00 cted_ar 0.025 % ea} Triamcinolo Tricinolo 2020-11 No 1{appli BID Triamcinol ne ne 1-17 cation_ one Acetonide Acetonide 00:00: to_affe Acetonide 0.025 % 0.025 % 00 cted_ar 0.025 % ea} Triamcinolo Triamcinolo 2020-11 No 1{appli BID Triamcinol ne ne 1-17 cation_ one Acetonide Acetonide 00:00: to_affe Acetonide 0.025 % 0.025 % 00 cted_ar 0.025 % ea} Triamcinolo Triamcinolo 2020-11 No 1{appli BID Triamcinol ne ne 1-17 cation_ one Acetonide Acetonide 00:00: to_affe Acetonide 0.025 % 0.025 % 00 cted_ar 0.025 % ea} Triamcinolo Triamcinolo 2020-11 No 1{appli BID Triamcinol ne ne 1-17 cation_ one Acetonide Acetonide 00:00: to_affe Acetonide 0.025 % 0.025 % 00 cted_ar 0.025 % ea} Triamcinolo Triamcinolo 2020-11 No 1{appli BID Triamcinol ne ne 1-17 cation_ one Acetonide Acetonide 00:00: to_affe Acetonide 0.025 % 0.025 % 00 cted_ar 0.025 % ea} Triamcinolo Triamcinolo 2020-11 No 1{appli BID Triamcinol ne ne 1-17 cation_ one Acetonide Acetonide 00:00: to_affe Acetonide 0.025 % 0.025 % 00 cted_ar 0.025 % ea} Triamcinolo Triamcinolo 2020-11 No 1{appli BID Triamcinol ne ne 1-17 cation_ one Acetonide Acetonide 00:00: to_affe Acetonide 0.025 % 0.025 % 00 cted_ar 0.025 % ea} Triamcinolo Triamcinolo 2020-11 No 1{appli BID Triamcinol ne ne 1-17 cation_ one Acetonide Acetonide 00:00: to_affe Acetonide 0.025 % 0.025 % 00 cted_ar 0.025 % ea} Triamcinolo Triamcinolo 2020-11 No 1{appli BID Triamcinol ne ne 1-17 cation_ one Acetonide Acetonide 00:00: to_affe Acetonide 0.025 % 0.025 % 00 cted_ar 0.025 % ea} Triamcinolo Triamcinolo 2020-11 No 1{appli BID Triamcinol ne ne 1-17 cation_ one Acetonide Acetonide 00:00: to_affe Acetonide 0.025 % 0.025 % 00 cted_ar 0.025 % ea} Triamcinolo Triamcinolo 2020-11 No 1{appli BID Triamcinol ne ne 1-17 cation_ one Acetonide Acetonide 00:00: to_affe Acetonide 0.025 % 0.025 % 00 cted_ar 0.025 % ea} Triamcinolo Triamcinolo 2020-11 No 1{appli BID Triamcinol ne ne 1-17 cation_ one Acetonide Acetonide 00:00: to_affe Acetonide 0.025 % 0.025 % 00 cted_ar 0.025 % ea} triamcinolo 2020-11- No as needed [facility]:00 [facility] 0.025 % 00 :00 Center cream triamcinolo 2020-11- No as needed [facility] 12-[facility] 04-[facility]: 00:00 Medical 0.025 % 00 :00 [facility] cream triamcinolo 2020-11- No as needed [facility] 12-11 04-[facility]: 00:00 Medical 0.025 % 00 :00 Center cream triamcinolo 2020-11- No as needed [facility] 12-11 04-05 [facility] 00:00: 00:00 Medical 0.025 % 00 :00 Center cream triamcinolo 2020-11- No as needed [facility] 12-11 04-05 [facility] 00:00: 00:00 Medical 0.025 % 00 :00 Center cream triamcinolo 2021-1 2022- No as needed [facility] 12[facility] 00:00: 00:00 Medical 0.025 % 00 :00 Center cream triamcinolo 2020-11- No as needed [facility] 12-11- [facility]: 00:00 Medical 0.025 % 00 :00 Center cream triamcinolo 2020-11- No as needed [facility] 12-[facility] 00:00: 00:00 Medical 0.025 % 00 :00 Center cream Sildenafil Sildenafil 2020-11- No 1{table Sildenafil Citrate 50 Citrate 50 12-11 t_as_ne Citrate 50 MG MG 00:00: 00:00 eded} MG 00 :00 pantoprazol 2021-0 Yes 40mg QD Take [address] [facility] 7-19 by [facility]: daily. Medic al 40 MG 00 Center tablet pantoprazol 2021-0 Yes 40mg QD Take [address] [facility] 7-[facility] 00:00: daily. Medic al 40 MG 00 Center tablet pantoprazol 2021-0 Yes 40mg QD Take [address] [facility] 7-[facility] 00:00: daily. Medic al 40 MG 00 Center tablet pantoprazol 2021-0 Yes 40mg QD Take [address] [facility] 7-19 [facility] 00:00: daily. Medic al 40 MG 00 Center tablet pantoprazol 2021-0 Yes 40mg QD Take [address] [facility] 7-19 [facility] 00:00: daily. Medic al 40 MG 00 Center tablet pantoprazol 2021-0 Yes 40mg QD Take [address] [facility] 7-19 [facility] 00:00: daily. Medic al 40 MG 00 Center tablet pantoprazol 2021-0 Yes 40mg QD Take [address] [facility] 7-19 [facility] 00:00: daily. Medic al 40 MG 00 Center tablet pantoprazol 2021-0 Yes 40mg QD Take [address] [facility] 7-[facility] 00:00: daily. Medic al 40 MG 00 Center tablet pantoprazol 1-0 Yes 40mg QD Take [address] [facility] 7-19 tablet (40 [facility] ([facility] 00:00: mg total) Me dical 40 MG 00 by mouth Center tablet in the morning. pantoprazol 1-0 Yes 40mg QD Take [address] [facility] 7-19 tablet (40 [facility] ([facility] 00:00: mg total) Me dical 40 MG 00 by mouth Center tablet in the morning. pantoprazol 2020-0 Yes 40mg QD Take [address] [facility] 7-19 tablet (40 [facility] ([facility] 00:00: mg total) Me dical 40 MG 00 by mouth Center tablet in the morning. pantoprazol 2020-0 2023- No 40mg QD Take [address] [facility] 7-13 05-19 tablet (40 [facility] ([facility] 00:00: 00:00 mg total) M edical 40 MG 00 :00 by mouth Center tablet in the morning. pantoprazol 2020-0 2023- No 40mg QD Take [address] [facility] 7-13 05-19 tablet (40 [facility] ([facility] 00:00: 00:00 mg total) M edical 40 MG 00 :00 by mouth Center tablet in the morning. pantoprazol 2020-0 2023- No 40mg QD Take [address] [facility] 7-13 05-19 tablet (40 [facility] ([facility] 00:00: 00:00 mg total) M edical 40 MG 00 :00 by mouth Center tablet in the morning. pantoprazol 2020-0 2023- No 40mg QD Take [address] [facility] 7-13 05-19 tablet (40 [facility] ([facility] 00:00: 00:00 mg total) M edical 40 MG 00 :00 by mouth Center tablet in the morning. pantoprazol 2020-0 2023- No 40mg QD Take [address] [facility] 7-19 06-19 tablet (40 [facility] ([facility] 00:00: 00:00 mg total) M edical 40 MG 00 :00 by mouth Center tablet in the morning. pantoprazol 1-0 2023- No 40mg QD Take [address] [facility] 7-19 -19 tablet (40 [facility] ([facility] 00:00: 00:00 mg total) M edical 40 MG 00 :00 by mouth Center tablet in the morning. HYDROcodone 2021- No 1{tbl} Take [address] -acetaminop 7-11 04-14 tablet by [facility] ([facility] 00:00: 00:00 mouth Medic al 10-325) 00 :00 every 6 Center 10-325 mg (six) per tablet hours as needed for pain. HYDROcodone 2021- No 1{tbl} Take [address] -acetaminop 7-11 04-14 tablet by [facility] ([facility] 00:00: 00:00 mouth Medic al 10-325) 00 :00 every 6 Center 10-325 mg (six) per tablet hours as needed for pain. HYDROcodone 2021- No 1{tbl} Take [address] -acetaminop 7-11 04-14 tablet by [facility] ([facility] 00:00: 00:00 mouth Medic al 10-325) 00 :00 every 6 Center 10-325 mg (six) per tablet hours as needed for pain. HYDROcodone 2021- No 1{tbl} Take [address] -acetaminop 7-11 04-14 tablet by [facility] l[facility] ([facility] 00:00: 00:00 mouth Medic al 10-325) 00 :00 every 6 Center 10-325 mg (six) per tablet hours as needed for pain. HYDROcodone 2021- No 1{tbl} Take [address] -acetaminop 7-11 04-14 tablet by [facility] ([facility] 00:00: 00:00 mouth Medic al 10-325) 00 :00 every 6 Center 10-325 mg (six) per tablet hours as needed for pain. HYDROcodone 2021- No 1{tbl} Take [address] -acetaminop 7-11 04-14 tablet by [facility] ([facility] 00:00: 00:00 mouth Medic al 10-325) 00 :00 every 6 Center 10-325 mg (six) per tablet hours as needed for pain. HYDROcodone 2021- No 1{tbl} Take [address] -acetaminop 7-11 04-14 tablet by [facility] ([facility] 00:00: 00:00 mouth Medic al 10-325) 00 :00 every 6 Center 10-325 mg (six) per tablet hours as needed for pain. HYDROcodone 2020-2021- No 1{tbl} Take [address] -acetaminop 7-11 04-14 tablet by [facility] ([facility] 00:00: 00:00 mouth Medic al 10-325) 00 :00 every 6 Center 10-325 mg (six) per tablet hours as needed for pain. ondansetron 2020-0 Yes 4mg Take [address] [facility] (ZOFRAN-ODT 7-10 tablet (4 [place] [facility] ) 4 MG 00:00: mg total) Medica l disintegrat 00 by mouth Cent er ing tablet every 8 (eight) hours as needed. ondansetron 2020-0 Yes 4mg Take [address] (ZOFRAN-ODT 7-10 [facility] ) 4 MG 00:00: every 8 Medical disintegrat 00 (eight) Cente r ing tablet hours as needed. ondansetron 2020-0 Yes 4mg Take [address] (ZOFRAN-ODT 7-10 by [facility] ) 4 MG 00:00: every 8 Medical disintegrat 00 (eight) Cente r ing tablet hours as needed. ondansetron 2020-0 Yes 4mg Take [address] (ZOFRAN-ODT 7-10 by mouth [facility] ) 4 MG 00:00: every 8 Medical disintegrat 00 (eight) Cente r ing tablet hours as needed. ondansetron 2020-0 Yes 4mg Take [address] (ZOFRAN-ODT 7-10 by mouth [facility] ) 4 MG 00:00: every 8 Medical disintegrat 00 (eight) Cente r ing tablet hours as needed. ondansetron 2020-0 Yes 4mg Take [address] (ZOFRAN-ODT 7-10 by mouth [facility] ) 4 MG 00:00: every 8 Medical disintegrat 00 (eight) Cente r ing tablet hours as needed. ondansetron 2020-0 Yes 4mg Take [address] (ZOFRAN-ODT 7-10 by mouth [facility] ) 4 MG 00:00: every 8 Medical disintegrat 00 (eight) Cente r ing tablet hours as needed. ondansetron 2021-0 Yes 4mg Take [address] (ZOFRAN-ODT 7-10 [facility] ) 4 MG 00:00: every 8 [facility] 00 ([facility] Cent[facility] ing tablet hours as needed. ondansetron 2021-0 Yes 4mg Take [address] (ZOFRAN-ODT 7-10 [facility] ) 4 MG 00:00: every 8 [facility] 00 (eight[facility] Cent[facility] r ing tablet hours as needed. ondansetron 2021-0 Yes 4mg Take [address] [facility] (ZOFRAN-ODT 7-10 tablet (4 [place] [facility] ) 4 MG 00:00: mg total) [facility] tablet every 8 (eight) hours as needed. ondansetron 2021-0 Yes 4mg Take [address] [facility] (ZOFRAN-ODT 7-10 tablet (4 [place] [facility] ) 4 MG 00:00: mg total) [facility] tablet every 8 (eight) hours as needed. ondansetron 2021-0 Yes 4mg Take [address] [facility] (ZOFRAN-ODT 7-10 tablet (4 [place] ) 4 MG 00:00: mg total) [facility] tablet every 8 (eight) hours as needed. ondansetron 2021-0 Yes 4mg Take [address] [facility] (ZOFRAN-ODT 7-10 tablet (4 [place] ) 4 MG 00:00: mg total) [facility] tablet every 8 (eight) hours as needed. ondansetron 2021-0 Yes 4mg Take [address] [facility] (ZOFRAN-ODT 7-10 tablet (4 [place] ) 4 MG 00:00: mg total) [facility] tablet every 8 (eight) hours as needed. ondansetron 2021-0 Yes 4mg Take [address] [facility] (ZOFRAN-ODT 7-10 tablet (4 [place] ) 4 MG 00:00: mg total) [facility] tablet every 8 (eight) hours as needed. ondansetron 2021-0 Yes 4mg Take [address] [facility] (ZOFRAN-ODT 7-10 tablet (4 [place] ) 4 MG 00:00: mg total) [facility] tablet every 8 (eight) hours as needed. ondansetron 2021-0 Yes 4mg Take [address] [facility] (ZOFRAN-ODT 7-10 tablet (4 [place] ) 4 MG 00:00: mg total) [facility] tablet every 8 (eight) hours as needed. HYDROcodone 202-0 Yes 1{tbl} Take 1 [facility] -acetaminop 7-09 tablet by [facility] [place]) 17:57: mouth [place] 10-325 mg 30 every 6 Medical tablet (six) Branch hours as needed. HYDROcodone 2020-0 Yes 1{tbl} Take 1 [facility] -acetaminop 7-09 tablet by [facility] [place]) 17:57: mouth [place] 10-325 mg 30 every 6 Medical tablet (six) Branch hours as needed. HYDROcodone 2020-0 Yes 1{tbl} Take 1 [facility] -acetaminop 7-09 tablet by ity of [employer] [facility] 17:57: mouth [place] 10-325 mg 30 every 6 Medical tablet (six) Branch hours as needed. HYDROcodone 2020-0 Yes 1{tbl} Take 1 Un [place] -acetaminop 7-09 tablet by [facility] [employer] ([facility]) 17:57: mouth [place] 10-325 mg 30 every 6 Medical tablet (six) Branch hours as needed. HYDROcodone 202-0 Yes 1{tbl} Take 1 Un man[place] -acetaminop 7-09 tablet by [facility] [employer] ([facility]) 17:57: mouth [place] 10-325 mg 30 every 6 Medical tablet (six) Branch hours as needed. HYDROcodone 2021-0 Yes 1{tbl} Take 1 Un man[place] -acetaminop 7-09 tablet by [facility] [employer] ([facility]) 17:57: mouth [place] 10-325 mg 30 every 6 Medical tablet (six) Branch hours as needed. HYDROcodone 202-0 Yes 1{tbl} Take 1 Un manolo -acetaminop 7-09 tablet by [facility] [employer] ([facility]) 17:57: mouth [place] 10-325 mg 30 every 6 Medical tablet (six) Branch hours as needed. HYDROcodone 2020-0 Yes 1{tbl} Take 1 Un man[place] -acetaminop 7-09 tablet by [facility] ([facility]) 17:57: mouth [place] 10-325 mg 30 every 6 Medical tablet (six) Branch hours as needed. HYDROcodone 2020-0 Yes 1{tbl} Take 1 Un manolo -acetaminop 7-09 tablet by [facility] ([facility]) 17:57: mouth [place] 10-325 mg 30 every 6 Medical tablet (six) Branch hours as needed. HYDROcodone 2020-0 Yes 1{tbl} Take 1 Un manolo -acetaminop 7-09 tablet by [facility] ([facility]) 17:57: mouth [place] 10-325 mg 30 every 6 Medical tablet (six) Branch hours as needed. HYDROcodone 2020-0 Yes 1{tbl} Take 1 Un man[place] -acetaminop 7-09 tablet by [facility] ([facility]) 17:57: mouth [place] 10-325 mg 30 every 6 Medical tablet (six) Branch hours as needed. tiZANidine 0 Yes TAKE 1 [facility] 4 mg tablet 6-21 TABLET BY [facility] of 00:00: MOUTH 00 EVERYDAY Medical AT BEDTIME Branch tiZANidine 2020-0 Yes TAKE 1 [facility] 4 mg tablet 6-21 TABLET BY [facility] of 00:00: MOUTH 00 EVERYDAY Medical AT BEDTIME Branch tiZANidine 2020-0 Yes TAKE 1 [facility] 4 mg tablet 6-21 TABLET BY [facility] of 00:00: MOUTH 00 EVERYDAY Medical AT BEDTIME Branch tiZANidine 2020-0 Yes TAKE 1 [facility] rs 4 mg tablet 6-21 TABLET BY [facility] of 00:00: MOUTH 00 EVERYDAY Medical AT BEDTIME Branch tiZANidine 2020-0 Yes TAKE 1 Unive rs 4 mg tablet 6-21 TABLET BY [facility] of 00:00: MOUTH 00 EVERYDAY Medical AT BEDTIME Branch tiZANidine 2020-0 Yes TAKE 1 [facility] rs 4 mg tablet 6-21 TABLET BY [facility]y of 00:00: MOUTH 00 EVERYDAY Medical AT BEDTIME Branch tiZANidine 2020-0 Yes TAKE 1 Un[facility] rs 4 mg tablet 6-21 TABLET BY [facility] of 00:00: MOUTH [place] 00 EVERYDAY Medical AT BEDTIME Branch tiZANidine Yes TAKE 1 Un[facility] rs 4 mg tablet 6-21 TABLET BY ity of 00:00: MOUTH EVERYDAY Medical AT BEDTIME Branch tiZANidine Yes TAKE 1 Un[facility] rs 4 mg tablet 6-21 TABLET BY ity of 00:00: MOUTH EVERYDAY Medical AT BEDTIME Branch tiZANidine Yes TAKE 1 Unive rs 4 mg tablet 6-21 TABLET BY ity of 00:00: MOUTH EVERYDAY Medical AT BEDTIME Branch tiZANidine Yes TAKE 1 [facility] rs 4 mg tablet 6-21 TABLET BY ity of 00:00: MOUTH EVERYDAY Medical AT BEDTIME Branch EPIPEN Yes [facility] 2-ARGELIA 0.3 6-27 ity of mg/0.3 mL 00:00: [place] injection Medical Branch EPIPEN Yes [facility] 2-ARGELIA 0.3 6-27 ity of mg/0.3 mL 00:00: [place] injection Medical Branch EPIPEN Yes [facility] 2-ARGELIA 0.3 6-27 ity of mg/0.3 mL 00:00: [place] injection Medical Branch EPIPEN Yes [facility] 2-ARGELIA 0.3 6-27 ity of mg/0.3 mL 00:00: [place] injection Medical Branch EPIPEN Yes [facility] 2-ARGELIA 0.3 6-27 ity of mg/0.3 mL 00:00: [place] injection Medical Branch EPIPEN Yes [facility] 2-ARGELIA 0.3 6-27 ity of mg/0.3 mL 00:00: [place] injection Medical Branch EPIPEN Yes [facility] 2-ARGELIA 0.3 6-27 ity of mg/0.3 mL 00:00: [place] injection Medical Branch EPIPEN Yes [facility] 2-ARGELIA 0.3 6-27 ity of mg/0.3 mL 00:00: [place] injection Medical Branch EPIPEN Yes [facility] 2-ARGELIA 0.3 6-27 ity of mg/0.3 mL 00:00: [place] injection Medical Branch EPIPEN Yes [facility] 2-ARGELIA 0.3 6-27 ity of mg/0.3 mL 00:00: [place] injection 00 Medical Branch EPIPEN 2016-0 Yes [facility] 2-ARGELIA 0.3 6-27 ity of mg/0.3 mL 00:00: [place] injection 00 Medical Branch traZODone traZODone No traZODone HCl 50 MG HCl 50 MG HCl 50 MG Cyclobenzap Cyclobenzap No Cyclobenza rine HCl 10 rine HCl 10 avel HCl MG MG 10 MG Ondansetron Ondansetron No Ondansetro HCl 8 MG HCl 8 MG n HCl 8 MG Sildenafil Sildenafil No 1{table QD Sildenafil Citrate 100 Citrate 100 t_as_ne Citrate MG MG eded} 100 MG Escitalopra Escitalopra No 1{table QD Escitalopr m Oxalate m Oxalate t} am Oxalate 20 MG 20 MG 20 MG HYDROcodone HYDROcodone No HYDROcodon -Acetaminop -Acetaminop e-Acetamin hen 10-325 hen 10-325 ophen MG MG 10-325 MG Escitalopra Escitalopra No 1{table QD Escitalopr m Oxalate m Oxalate t} am Oxalate 20 MG 20 MG 20 MG Pantoprazol Pantoprazol No 1{table QD Pantoprazo e Sodium 40 e Sodium 40 t} le Sodium MG MG 40 MG EPINEPHrine EPINEPHrine No EPINEPHrin 0.3 0.3 e 0.3 MG/0.3ML MG/0.3ML MG/0.3ML hydrOXYzine hydrOXYzine No BID hydrOXYzin HCl 25 MG HCl 25 MG e HCl 25 MG traZODone traZODone No traZODone HCl 50 MG HCl 50 MG HCl 50 MG Sildenafil Sildenafil No 1{table QD Sildenafil Citrate 100 Citrate 100 t_as_ne Citrate MG MG eded} 100 MG Ondansetron Ondansetron No Ondansetro HCl 8 MG HCl 8 MG n HCl 8 MG Diclofenac Diclofenac No Diclofenac Sodium 75 Sodium 75 Sodium 75 MG MG MG Cyclobenzap Cyclobenzap No Cyclobenza rine HCl 10 rine HCl 10 avel HCl MG MG 10 MG HYDROcodone HYDROcodone No HYDROcodon -Acetaminop -Acetaminop e-Acetamin hen 10-325 hen 10-325 ophen MG MG 10-325 MG Escitalopra Escitalopra No 1{table QD Escitalopr m Oxalate m Oxalate t} am Oxalate 20 MG 20 MG 20 MG Pantoprazol Pantoprazol No 1{table QD Pantoprazo e Sodium 40 e Sodium 40 t} le Sodium MG MG 40 MG Ondansetron Ondansetron No 1{table QD Ondansetro HCl 8 MG HCl 8 MG t} n HCl 8 MG hydrOXYzine hydrOXYzine No BID hydrOXYzin HCl 25 MG HCl 25 MG e HCl 25 MG traZODone traZODone No traZODone HCl 50 MG HCl 50 MG HCl 50 MG EPINEPHrine EPINEPHrine No EPINEPHrin 0.3 0.3 e 0.3 MG/0.3ML MG/0.3ML MG/0.3ML Sildenafil Sildenafil No 1{table QD Sildenafil Citrate 100 Citrate 100 t_as_ne Citrate MG MG eded} 100 MG Diclofenac Diclofenac No Diclofenac Sodium 75 Sodium 75 Sodium 75 MG MG MG Cyclobenzap Cyclobenzap No Cyclobenza rine HCl 10 rine HCl 10 avel HCl MG MG 10 MG Cyclobenzap Cyclobenzap No Cyclobenza rine HCl 10 rine HCl 10 avel HCl MG MG 10 MG traZODone traZODone No traZODone HCl 50 MG HCl 50 MG HCl 50 MG Sildenafil Sildenafil No 1{table QD Sildenafil Citrate 100 Citrate 100 t_as_ne Citrate MG MG eded} 100 MG hydrOXYzine hydrOXYzine No BID hydrOXYzin HCl 25 MG HCl 25 MG e HCl 25 MG EPINEPHrine EPINEPHrine No EPINEPHrin 0.3 0.3 e 0.3 MG/0.3ML MG/0.3ML MG/0.3ML Diclofenac Diclofenac No Diclofenac Sodium 75 Sodium 75 Sodium 75 MG MG MG Pantoprazol Pantoprazol No 1{table QD Pantoprazo e Sodium 40 e Sodium 40 t} le Sodium MG MG 40 MG Ondansetron Ondansetron No 1{table QD Ondansetro HCl 8 MG HCl 8 MG t} n HCl 8 MG HYDROcodone HYDROcodone No HYDROcodon -Acetaminop -Acetaminop e-Acetamin hen 10-325 hen 10-325 ophen MG MG 10-325 MG Escitalopra Escitalopra No 1{table QD Escitalopr m Oxalate m Oxalate t} am Oxalate 20 MG 20 MG 20 MG Cyclobenzap Cyclobenzap No Cyclobenza rine HCl 10 rine HCl 10 avel HCl MG MG 10 MG traZODone traZODone No traZODone HCl 50 MG HCl 50 MG HCl 50 MG Sildenafil Sildenafil No 1{table QD Sildenafil Citrate 100 Citrate 100 t_as_ne Citrate MG MG eded} 100 MG hydrOXYzine hydrOXYzine No BID hydrOXYzin HCl 25 MG HCl 25 MG e HCl 25 MG EPINEPHrine EPINEPHrine No EPINEPHrin 0.3 0.3 e 0.3 MG/0.3ML MG/0.3ML MG/0.3ML Diclofenac Diclofenac No Diclofenac Sodium 75 Sodium 75 Sodium 75 MG MG MG Pantoprazol Pantoprazol No 1{table QD Pantoprazo e Sodium 40 e Sodium 40 t} le Sodium MG MG 40 MG Ondansetron Ondansetron No 1{table QD Ondansetro HCl 8 MG HCl 8 MG t} n HCl 8 MG HYDROcodone HYDROcodone No HYDROcodon -Acetaminop -Acetaminop e-Acetamin hen 10-325 hen 10-325 ophen MG MG 10-325 MG Escitalopra Escitalopra No 1{table QD Escitalopr m Oxalate m Oxalate t} am Oxalate 20 MG 20 MG 20 MG Escitalopra Escitalopra No 1{table QD Escitalopr m Oxalate m Oxalate t} am Oxalate 20 MG 20 MG 20 MG traZODone traZODone No traZODone HCl 50 MG HCl 50 MG HCl 50 MG Sildenafil Sildenafil No 1{table QD Sildenafil Citrate 100 Citrate 100 t_as_ne Citrate MG MG eded} 100 MG HYDROcodone HYDROcodone No HYDROcodon -Acetaminop -Acetaminop e-Acetamin hen 10-325 hen 10-325 ophen MG MG 10-325 MG Cyclobenzap Cyclobenzap No Cyclobenza rine HCl 10 rine HCl 10 avel HCl MG MG 10 MG hydrOXYzine hydrOXYzine No BID hydrOXYzin HCl 25 MG HCl 25 MG e HCl 25 MG Ondansetron Ondansetron No Ondansetro HCl 8 MG HCl 8 MG n HCl 8 MG Pantoprazol Pantoprazol No Pantoprazo e Sodium 40 e Sodium 40 le Sodium MG MG 40 MG EPINEPHrine EPINEPHrine No EPINEPHrin 0.3 0.3 e 0.3 MG/0.3ML MG/0.3ML MG/0.3ML Escitalopra Escitalopra No 1{table QD Escitalopr m Oxalate m Oxalate t} am Oxalate 20 MG 20 MG 20 MG traZODone traZODone No traZODone HCl 50 MG HCl 50 MG HCl 50 MG Sildenafil Sildenafil No 1{table QD Sildenafil Citrate 100 Citrate 100 t_as_ne Citrate MG MG eded} 100 MG HYDROcodone HYDROcodone No HYDROcodon -Acetaminop -Acetaminop e-Acetamin hen 10-325 hen 10-325 ophen MG MG 10-325 MG Cyclobenzap Cyclobenzap No Cyclobenza rine HCl 10 rine HCl 10 avel HCl MG MG 10 MG hydrOXYzine hydrOXYzine No BID hydrOXYzin HCl 25 MG HCl 25 MG e HCl 25 MG Ondansetron Ondansetron No Ondansetro HCl 8 MG HCl 8 MG n HCl 8 MG Pantoprazol Pantoprazol No Pantoprazo e Sodium 40 e Sodium 40 le Sodium MG MG 40 MG EPINEPHrine EPINEPHrine No EPINEPHrin 0.3 0.3 e 0.3 MG/0.3ML MG/0.3ML MG/0.3ML HYDROcodone HYDROcodone No HYDROcodon -Acetaminop -Acetaminop e-Acetamin hen 10-325 hen 10-325 ophen MG MG 10-325 MG Ondansetron Ondansetron No Ondansetro HCl 8 MG HCl 8 MG n HCl 8 MG EPINEPHrine EPINEPHrine No EPINEPHrin 0.3 0.3 e 0.3 MG/0.3ML MG/0.3ML MG/0.3ML Sildenafil Sildenafil No 1{table QD Sildenafil Citrate 100 Citrate 100 t_as_ne Citrate MG MG eded} 100 MG Cyclobenzap Cyclobenzap No Cyclobenza rine HCl 10 rine HCl 10 avel HCl MG MG 10 MG Escitalopra Escitalopra No 1{table QD Escitalopr m Oxalate m Oxalate t} am Oxalate 20 MG 20 MG 20 MG Pantoprazol Pantoprazol No Pantoprazo e Sodium 40 e Sodium 40 le Sodium MG MG 40 MG traZODone traZODone No traZODone HCl 50 MG HCl 50 MG HCl 50 MG hydrOXYzine hydrOXYzine No BID hydrOXYzin HCl 25 MG HCl 25 MG e HCl 25 MG HYDROcodone HYDROcodone No HYDROcodon -Acetaminop -Acetaminop e-Acetamin hen 10-325 hen 10-325 ophen MG MG 10-325 MG Ondansetron Ondansetron No Ondansetro HCl 8 MG HCl 8 MG n HCl 8 MG EPINEPHrine EPINEPHrine No EPINEPHrin 0.3 0.3 e 0.3 MG/0.3ML MG/0.3ML MG/0.3ML Sildenafil Sildenafil No 1{table QD Sildenafil Citrate 100 Citrate 100 t_as_ne Citrate MG MG eded} 100 MG Cyclobenzap Cyclobenzap No Cyclobenza rine HCl 10 rine HCl 10 avel HCl MG MG 10 MG Escitalopra Escitalopra No 1{table QD Escitalopr m Oxalate m Oxalate t} am Oxalate 20 MG 20 MG 20 MG Pantoprazol Pantoprazol No Pantoprazo e Sodium 40 e Sodium 40 le Sodium MG MG 40 MG traZODone traZODone No traZODone HCl 50 MG HCl 50 MG HCl 50 MG hydrOXYzine hydrOXYzine No BID hydrOXYzin HCl 25 MG HCl 25 MG e HCl 25 MG HYDROcodone HYDROcodone No HYDROcodon -Acetaminop -Acetaminop e-Acetamin hen 10-325 hen 10-325 ophen MG MG 10-325 MG Pantoprazol Pantoprazol No Pantoprazo e Sodium 40 e Sodium 40 le Sodium MG MG 40 MG Cyclobenzap Cyclobenzap No Cyclobenza rine HCl 10 rine HCl 10 avel HCl MG MG 10 MG Escitalopra Escitalopra No Escitalopr m Oxalate m Oxalate am Oxalate 10 MG 10 MG 10 MG hydrOXYzine hydrOXYzine No hydrOXYzin HCl 25 MG HCl 25 MG e HCl 25 MG Ondansetron Ondansetron No Ondansetro HCl 8 MG HCl 8 MG n HCl 8 MG traZODone traZODone No traZODone HCl 50 MG HCl 50 MG HCl 50 MG HYDROcodone HYDROcodone No HYDROcodon -Acetaminop -Acetaminop e-Acetamin hen 10-325 hen 10-325 ophen MG MG 10-325 MG hydrOXYzine hydrOXYzine No hydrOXYzin HCl 25 MG HCl 25 MG e HCl 25 MG Cyclobenzap Cyclobenzap No Cyclobenza rine HCl 10 rine HCl 10 avel HCl MG MG 10 MG Pantoprazol Pantoprazol No Pantoprazo e Sodium 40 e Sodium 40 le Sodium MG MG 40 MG Escitalopra Escitalopra No Escitalopr m Oxalate m Oxalate am Oxalate 10 MG 10 MG 10 MG Sildenafil Sildenafil No 1{table Sildenafil Citrate 50 Citrate 50 t_as_ne Citrate 50 MG MG eded} MG Ondansetron Ondansetron No Ondansetro HCl 8 MG HCl 8 MG n HCl 8 MG traZODone traZODone No traZODone HCl 50 MG HCl 50 MG HCl 50 MG HYDROcodone HYDROcodone No HYDROcodon -Acetaminop -Acetaminop e-Acetamin hen 10-325 hen 10-325 ophen MG MG 10-325 MG hydrOXYzine hydrOXYzine No hydrOXYzin HCl 25 MG HCl 25 MG e HCl 25 MG Cyclobenzap Cyclobenzap No Cyclobenza rine HCl 10 rine HCl 10 avel HCl MG MG 10 MG Pantoprazol Pantoprazol No Pantoprazo e Sodium 40 e Sodium 40 le Sodium MG MG 40 MG Escitalopra Escitalopra No Escitalopr m Oxalate m Oxalate am Oxalate 10 MG 10 MG 10 MG Sildenafil Sildenafil No 1{table Sildenafil Citrate 50 Citrate 50 t_as_ne Citrate 50 MG MG eded} MG Ondansetron Ondansetron No Ondansetro HCl 8 MG HCl 8 MG n HCl 8 MG traZODone traZODone No traZODone HCl 50 MG HCl 50 MG HCl 50 MG HYDROcodone HYDROcodone No HYDROcodon -Acetaminop -Acetaminop e-Acetamin hen 10-325 hen 10-325 ophen MG MG 10-325 MG hydrOXYzine hydrOXYzine No hydrOXYzin HCl 25 MG HCl 25 MG e HCl 25 MG Cyclobenzap Cyclobenzap No Cyclobenza rine HCl 10 rine HCl 10 avel HCl MG MG 10 MG Pantoprazol Pantoprazol No Pantoprazo e Sodium 40 e Sodium 40 le Sodium MG MG 40 MG Escitalopra Escitalopra No Escitalopr m Oxalate m Oxalate am Oxalate 10 MG 10 MG 10 MG Sildenafil Sildenafil No 1{table Sildenafil Citrate 50 Citrate 50 t_as_ne Citrate 50 MG MG eded} MG Ondansetron Ondansetron No Ondansetro HCl 8 MG HCl 8 MG n HCl 8 MG traZODone traZODone No traZODone HCl 50 MG HCl 50 MG HCl 50 MG traZODone traZODone No traZODone HCl 50 MG HCl 50 MG HCl 50 MG Ondansetron Ondansetron No Ondansetro HCl 8 MG HCl 8 MG n HCl 8 MG hydrOXYzine hydrOXYzine No BID hydrOXYzin HCl 25 MG HCl 25 MG e HCl 25 MG Cyclobenzap Cyclobenzap No Cyclobenza rine HCl 10 rine HCl 10 avel HCl MG MG 10 MG Pantoprazol Pantoprazol No Pantoprazo e Sodium 40 e Sodium 40 le Sodium MG MG 40 MG HYDROcodone HYDROcodone No HYDROcodon -Acetaminop -Acetaminop e-Acetamin hen 10-325 hen 10-325 ophen MG MG 10-325 MG traZODone traZODone No traZODone HCl 50 MG HCl 50 MG HCl 50 MG hydrOXYzine hydrOXYzine No BID hydrOXYzin HCl 25 MG HCl 25 MG e HCl 25 MG Pantoprazol Pantoprazol No Pantoprazo e Sodium 40 e Sodium 40 le Sodium MG MG 40 MG HYDROcodone HYDROcodone No HYDROcodon -Acetaminop -Acetaminop e-Acetamin hen 10-325 hen 10-325 ophen MG MG 10-325 MG Cyclobenzap Cyclobenzap No Cyclobenza rine HCl 10 rine HCl 10 avel HCl MG MG 10 MG Ondansetron Ondansetron No Ondansetro HCl 8 MG HCl 8 MG n HCl 8 MG traZODone traZODone No traZODone HCl 50 MG HCl 50 MG HCl 50 MG hydrOXYzine hydrOXYzine No BID hydrOXYzin HCl 25 MG HCl 25 MG e HCl 25 MG Pantoprazol Pantoprazol No Pantoprazo e Sodium 40 e Sodium 40 le Sodium MG MG 40 MG HYDROcodone HYDROcodone No HYDROcodon -Acetaminop -Acetaminop e-Acetamin hen 10-325 hen 10-325 ophen MG MG 10-325 MG Cyclobenzap Cyclobenzap No Cyclobenza rine HCl 10 rine HCl 10 avel HCl MG MG 10 MG Ondansetron Ondansetron No Ondansetro HCl 8 MG HCl 8 MG n HCl 8 MG traZODone traZODone No traZODone HCl 50 MG HCl 50 MG HCl 50 MG Ondansetron Ondansetron No Ondansetro HCl 8 MG HCl 8 MG n HCl 8 MG Testosteron Testosteron No 1{ml} Testostero e Cypionate e Cypionate ne 200 MG/ML 200 MG/ML Cypionate 200 MG/ML Escitalopra Escitalopra No 1{table QD Escitalopr m Oxalate m Oxalate t} am Oxalate 20 MG 20 MG 20 MG Pantoprazol Pantoprazol No Pantoprazo e Sodium 40 e Sodium 40 le Sodium MG MG 40 MG hydrOXYzine hydrOXYzine No BID hydrOXYzin HCl 25 MG HCl 25 MG e HCl 25 MG Cyclobenzap Cyclobenzap No Cyclobenza rine HCl 10 rine HCl 10 avel HCl MG MG 10 MG HYDROcodone HYDROcodone No HYDROcodon -Acetaminop -Acetaminop e-Acetamin hen 10-325 hen 10-325 ophen MG MG 10-325 MG Sildenafil Sildenafil No 1{table QD Sildenafil Citrate 100 Citrate 100 t_as_ne Citrate MG MG eded} 100 MG Escitalopra Escitalopra No 1{table QD Escitalopr m Oxalate m Oxalate t} am Oxalate 20 MG 20 MG 20 MG Cyclobenzap Cyclobenzap No Cyclobenza rine HCl 10 rine HCl 10 avel HCl MG MG 10 MG traZODone traZODone No traZODone HCl 50 MG HCl 50 MG HCl 50 MG HYDROcodone HYDROcodone No HYDROcodon -Acetaminop -Acetaminop e-Acetamin hen 10-325 hen 10-325 ophen MG MG 10-325 MG Pantoprazol Pantoprazol No Pantoprazo e Sodium 40 e Sodium 40 le Sodium MG MG 40 MG Ondansetron Ondansetron No Ondansetro HCl 8 MG HCl 8 MG n HCl 8 MG hydrOXYzine hydrOXYzine No BID hydrOXYzin HCl 25 MG HCl 25 MG e HCl 25 MG Sildenafil Sildenafil No 1{table QD Sildenafil Citrate 100 Citrate 100 t_as_ne Citrate MG MG eded} 100 MG Testosteron Testosteron No 1{ml} Testostero e Cypionate e Cypionate ne 200 MG/ML 200 MG/ML Cypionate 200 MG/ML Escitalopra Escitalopra No 1{table QD Escitalopr m Oxalate m Oxalate t} am Oxalate 20 MG 20 MG 20 MG Cyclobenzap Cyclobenzap No Cyclobenza rine HCl 10 rine HCl 10 avel HCl MG MG 10 MG traZODone traZODone No traZODone HCl 50 MG HCl 50 MG HCl 50 MG HYDROcodone HYDROcodone No HYDROcodon -Acetaminop -Acetaminop e-Acetamin hen 10-325 hen 10-325 ophen MG MG 10-325 MG Pantoprazol Pantoprazol No Pantoprazo e Sodium 40 e Sodium 40 le Sodium MG MG 40 MG Ondansetron Ondansetron No Ondansetro HCl 8 MG HCl 8 MG n HCl 8 MG hydrOXYzine hydrOXYzine No BID hydrOXYzin HCl 25 MG HCl 25 MG e HCl 25 MG Sildenafil Sildenafil No 1{table QD Sildenafil Citrate 100 Citrate 100 t_as_ne Citrate MG MG eded} 100 MG Testosteron Testosteron No 1{ml} Testostero e Cypionate e Cypionate ne 200 MG/ML 200 MG/ML Cypionate 200 MG/ML Pantoprazol Pantoprazol No Pantoprazo e Sodium 40 e Sodium 40 le Sodium MG MG 40 MG Testosteron Testosteron No 1{ml} Testostero e Cypionate e Cypionate ne 200 MG/ML 200 MG/ML Cypionate 200 MG/ML hydrOXYzine hydrOXYzine No BID hydrOXYzin HCl 25 MG HCl 25 MG e HCl 25 MG Cyclobenzap Cyclobenzap No Cyclobenza rine HCl 10 rine HCl 10 avel HCl MG MG 10 MG HYDROcodone HYDROcodone No HYDROcodon -Acetaminop -Acetaminop e-Acetamin hen 10-325 hen 10-325 ophen MG MG 10-325 MG Escitalopra Escitalopra No 1{table QD Escitalopr m Oxalate m Oxalate t} am Oxalate 20 MG 20 MG 20 MG Ondansetron Ondansetron No Ondansetro HCl 8 MG HCl 8 MG n HCl 8 MG Sildenafil Sildenafil No 1{table QD Sildenafil Citrate 100 Citrate 100 t_as_ne Citrate MG MG eded} 100 MG traZODone traZODone No traZODone HCl 50 MG HCl 50 MG HCl 50 MG Sildenafil Sildenafil No 1{table QD Sildenafil Citrate 100 Citrate 100 t_as_ne Citrate MG MG eded} 100 MG hydrOXYzine hydrOXYzine No BID hydrOXYzin HCl 25 MG HCl 25 MG e HCl 25 MG Testosteron Testosteron No 1{ml} Testostero e Cypionate e Cypionate ne 200 MG/ML 200 MG/ML Cypionate 200 MG/ML Pantoprazol Pantoprazol No Pantoprazo e Sodium 40 e Sodium 40 le Sodium MG MG 40 MG Ondansetron Ondansetron No Ondansetro HCl 8 MG HCl 8 MG n HCl 8 MG HYDROcodone HYDROcodone No HYDROcodon -Acetaminop -Acetaminop e-Acetamin hen 10-325 hen 10-325 ophen MG MG 10-325 MG Cyclobenzap Cyclobenzap No Cyclobenza rine HCl 10 rine HCl 10 avel HCl MG MG 10 MG Escitalopra Escitalopra No 1{table QD Escitalopr m Oxalate m Oxalate t} am Oxalate 20 MG 20 MG 20 MG traZODone traZODone No traZODone HCl 50 MG HCl 50 MG HCl 50 MG Sildenafil Sildenafil No 1{table QD Sildenafil Citrate 100 Citrate 100 t_as_ne Citrate MG MG eded} 100 MG hydrOXYzine hydrOXYzine No BID hydrOXYzin HCl 25 MG HCl 25 MG e HCl 25 MG Testosteron Testosteron No 1{ml} Testostero e Cypionate e Cypionate ne 200 MG/ML 200 MG/ML Cypionate 200 MG/ML Pantoprazol Pantoprazol No Pantoprazo e Sodium 40 e Sodium 40 le Sodium MG MG 40 MG Ondansetron Ondansetron No Ondansetro HCl 8 MG HCl 8 MG n HCl 8 MG HYDROcodone HYDROcodone No HYDROcodon -Acetaminop -Acetaminop e-Acetamin hen 10-325 hen 10-325 ophen MG MG 10-325 MG Cyclobenzap Cyclobenzap No Cyclobenza rine HCl 10 rine HCl 10 avel HCl MG MG 10 MG Escitalopra Escitalopra No 1{table QD Escitalopr m Oxalate m Oxalate t} am Oxalate 20 MG 20 MG 20 MG traZODone traZODone No traZODone HCl 50 MG HCl 50 MG HCl 50 MG Pantoprazol Pantoprazol No Pantoprazo e Sodium 40 e Sodium 40 le Sodium MG MG 40 MG traZODone traZODone No traZODone HCl 50 MG HCl 50 MG HCl 50 MG Ondansetron Ondansetron No Ondansetro HCl 8 MG HCl 8 MG n HCl 8 MG hydrOXYzine hydrOXYzine No BID hydrOXYzin HCl 25 MG HCl 25 MG e HCl 25 MG HYDROcodone HYDROcodone No HYDROcodon -Acetaminop -Acetaminop e-Acetamin hen 10-325 hen 10-325 ophen MG MG 10-325 MG Sildenafil Sildenafil No 1{table QD Sildenafil Citrate 100 Citrate 100 t_as_ne Citrate MG MG eded} 100 MG Escitalopra Escitalopra No 1{table QD Escitalopr m Oxalate m Oxalate t} am Oxalate 20 MG 20 MG 20 MG Cyclobenzap Cyclobenzap No Cyclobenza rine HCl 10 rine HCl 10 avel HCl MG MG 10 MG Pantoprazol Pantoprazol No Pantoprazo e Sodium 40 e Sodium 40 le Sodium MG MG 40 MG Testosteron Testosteron No 1{ml} Testostero e Cypionate e Cypionate ne 200 MG/ML 200 MG/ML Cypionate 200 MG/ML Sildenafil Sildenafil No 1{table QD Sildenafil Citrate 100 Citrate 100 t_as_ne Citrate MG MG eded} 100 MG Cyclobenzap Cyclobenzap No Cyclobenza rine HCl 10 rine HCl 10 avel HCl MG MG 10 MG traZODone traZODone No traZODone HCl 50 MG HCl 50 MG HCl 50 MG HYDROcodone HYDROcodone No HYDROcodon -Acetaminop -Acetaminop e-Acetamin hen 10-325 hen 10-325 ophen MG MG 10-325 MG Escitalopra Escitalopra No 1{table QD Escitalopr m Oxalate m Oxalate t} am Oxalate 20 MG 20 MG 20 MG Ondansetron Ondansetron No Ondansetro HCl 8 MG HCl 8 MG n HCl 8 MG hydrOXYzine hydrOXYzine No BID hydrOXYzin HCl 25 MG HCl 25 MG e HCl 25 MG Cyclobenzap Cyclobenzap No Cyclobenza rine HCl 10 rine HCl 10 avel HCl MG MG 10 MG EPINEPHrine EPINEPHrine No EPINEPHrin 0.3 0.3 e 0.3 MG/0.3ML MG/0.3ML MG/0.3ML Testosteron Testosteron No 1{ml} Testostero e Cypionate e Cypionate ne 200 MG/ML 200 MG/ML Cypionate 200 MG/ML Sildenafil Sildenafil No 1{table QD Sildenafil Citrate 100 Citrate 100 t_as_ne Citrate MG MG eded} 100 MG HYDROcodone HYDROcodone No HYDROcodon -Acetaminop -Acetaminop e-Acetamin hen 10-325 hen 10-325 ophen MG MG 10-325 MG Pantoprazol Pantoprazol No Pantoprazo e Sodium 40 e Sodium 40 le Sodium MG MG 40 MG hydrOXYzine hydrOXYzine No BID hydrOXYzin HCl 25 MG HCl 25 MG e HCl 25 MG traZODone traZODone No traZODone HCl 50 MG HCl 50 MG HCl 50 MG Escitalopra Escitalopra No 1{table QD Escitalopr m Oxalate m Oxalate t} am Oxalate 20 MG 20 MG 20 MG Ondansetron Ondansetron No Ondansetro HCl 8 MG HCl 8 MG n HCl 8 MG hydrOXYzine hydrOXYzine No BID hydrOXYzin HCl 25 MG HCl 25 MG e HCl 25 MG Cyclobenzap Cyclobenzap No Cyclobenza rine HCl 10 rine HCl 10 avel HCl MG MG 10 MG Pantoprazol Pantoprazol No Pantoprazo e Sodium 40 e Sodium 40 le Sodium MG MG 40 MG Ondansetron Ondansetron No Ondansetro HCl 8 MG HCl 8 MG n HCl 8 MG Escitalopra Escitalopra No 1{table QD Escitalopr m Oxalate m Oxalate t} am Oxalate 20 MG 20 MG 20 MG Testosteron Testosteron No 1{ml} Testostero e Cypionate e Cypionate ne 200 MG/ML 200 MG/ML Cypionate 200 MG/ML HYDROcodone HYDROcodone No HYDROcodon -Acetaminop -Acetaminop e-Acetamin hen 10-325 hen 10-325 ophen MG MG 10-325 MG EPINEPHrine EPINEPHrine No EPINEPHrin 0.3 0.3 e 0.3 MG/0.3ML MG/0.3ML MG/0.3ML traZODone traZODone No traZODone HCl 50 MG HCl 50 MG HCl 50 MG Sildenafil Sildenafil No 1{table QD Sildenafil Citrate 100 Citrate 100 t_as_[id number] Citrate MG MG eded} 100 MG EPINEPHrine EPINEPHrine No EPINEPHrin 0.3 0.3 e 0.3 MG/0.3ML MG/0.3ML MG/0.3ML Cyclobenzap Cyclobenzap No Cyclobenza rine HCl 10 rine HCl 10 avel HCl MG MG 10 MG traZODone traZODone No traZODone HCl 50 MG HCl 50 MG HCl 50 MG HYDROcodone HYDROcodone No HYDROcodon -Acetaminop -Acetaminop e-Acetamin hen 10-325 hen 10-325 ophen MG MG 10-325 MG Escitalopra Escitalopra No 1{table QD Escitalopr m Oxalate m Oxalate t} am Oxalate 20 MG 20 MG 20 MG hydrOXYzine hydrOXYzine No BID hydrOXYzin HCl 25 MG HCl 25 MG e HCl 25 MG Pantoprazol Pantoprazol No Pantoprazo e Sodium 40 e Sodium 40 le Sodium MG MG 40 MG Testosteron Testosteron No 1{ml} Testostero e Cypionate e Cypionate ne 200 MG/ML 200 MG/ML Cypionate 200 MG/ML Ondansetron Ondansetron No Ondansetro HCl 8 MG HCl 8 MG n HCl 8 MG Sildenafil Sildenafil No 1{table QD Sildenafil Citrate 100 Citrate 100 t_as_ne Citrate MG MG eded} 100 MG EPINEPHrine EPINEPHrine No EPINEPHrin 0.3 0.3 e 0.3 MG/0.3ML MG/0.3ML MG/0.3ML Cyclobenzap Cyclobenzap No Cyclobenza rine HCl 10 rine HCl 10 avel HCl MG MG 10 MG traZODone traZODone No traZODone HCl 50 MG HCl 50 MG HCl 50 MG HYDROcodone HYDROcodone No HYDROcodon -Acetaminop -Acetaminop e-Acetamin hen 10-325 hen 10-325 ophen MG MG 10-325 MG Escitalopra Escitalopra No 1{table QD Escitalopr m Oxalate m Oxalate t} am Oxalate 20 MG 20 MG 20 MG hydrOXYzine hydrOXYzine No BID hydrOXYzin HCl 25 MG HCl 25 MG e HCl 25 MG Ondansetron Ondansetron No Ondansetro HCl 8 MG HCl 8 MG n HCl 8 MG Testosteron Testosteron No 1{ml} Testostero e Cypionate e Cypionate ne 200 MG/ML 200 MG/ML Cypionate 200 MG/ML Sildenafil Sildenafil No 1{table QD Sildenafil Citrate 100 Citrate 100 t_as_ne Citrate MG MG eded} 100 MG Pantoprazol Pantoprazol No Pantoprazo e Sodium 40 e Sodium 40 le Sodium MG MG 40 MG Escitalopra Escitalopra No 1{table QD Escitalopr m Oxalate m Oxalate t} am Oxalate 20 MG 20 MG 20 MG traZODone traZODone No traZODone HCl 50 MG HCl 50 MG HCl 50 MG Sildenafil Sildenafil No 1{table QD Sildenafil Citrate 100 Citrate 100 t_as_ne Citrate MG MG eded} 100 MG HYDROcodone HYDROcodone No HYDROcodon -Acetaminop -Acetaminop e-Acetamin hen 10-325 hen 10-325 ophen MG MG 10-325 MG Cyclobenzap Cyclobenzap No Cyclobenza rine HCl 10 rine HCl 10 avel HCl MG MG 10 MG hydrOXYzine hydrOXYzine No BID hydrOXYzin HCl 25 MG HCl 25 MG e HCl 25 MG Ondansetron Ondansetron No Ondansetro HCl 8 MG HCl 8 MG n HCl 8 MG Pantoprazol Pantoprazol No Pantoprazo e Sodium 40 e Sodium 40 le Sodium MG MG 40 MG EPINEPHrine EPINEPHrine No EPINEPHrin 0.3 0.3 e 0.3 MG/0.3ML MG/0.3ML MG/0.3ML Escitalopra Escitalopra No 1{table QD Escitalopr m Oxalate m Oxalate t} am Oxalate 20 MG 20 MG 20 MG traZODone traZODone No traZODone HCl 50 MG HCl 50 MG HCl 50 MG Sildenafil Sildenafil No 1{table QD Sildenafil Citrate 100 Citrate 100 t_as_ne Citrate MG MG eded} 100 MG HYDROcodone HYDROcodone No HYDROcodon -Acetaminop -Acetaminop e-Acetamin hen 10-325 hen 10-325 ophen MG MG 10-325 MG Cyclobenzap Cyclobenzap No Cyclobenza rine HCl 10 rine HCl 10 avel HCl MG MG 10 MG hydrOXYzine hydrOXYzine No BID hydrOXYzin HCl 25 MG HCl 25 MG e HCl 25 MG Ondansetron Ondansetron No Ondansetro HCl 8 MG HCl 8 MG n HCl 8 MG Pantoprazol Pantoprazol No Pantoprazo e Sodium 40 e Sodium 40 le Sodium MG MG 40 MG EPINEPHrine EPINEPHrine No EPINEPHrin 0.3 0.3 e 0.3 MG/0.3ML MG/0.3ML MG/0.3ML HYDROcodone HYDROcodone No HYDROcodon -Acetaminop -Acetaminop e-Acetamin hen 10-325 hen 10-325 ophen MG MG 10-325 MG Ondansetron Ondansetron No Ondansetro HCl 8 MG HCl 8 MG n HCl 8 MG EPINEPHrine EPINEPHrine No EPINEPHrin 0.3 0.3 e 0.3 MG/0.3ML MG/0.3ML MG/0.3ML Sildenafil Sildenafil No 1{table QD Sildenafil Citrate 100 Citrate 100 t_as_ne Citrate MG MG eded} 100 MG Cyclobenzap Cyclobenzap No Cyclobenza rine HCl 10 rine HCl 10 avel HCl MG MG 10 MG Escitalopra Escitalopra No 1{table QD Escitalopr m Oxalate m Oxalate t} am Oxalate 20 MG 20 MG 20 MG Pantoprazol Pantoprazol No Pantoprazo e Sodium 40 e Sodium 40 le Sodium MG MG 40 MG traZODone traZODone No traZODone HCl 50 MG HCl 50 MG HCl 50 MG hydrOXYzine hydrOXYzine No BID hydrOXYzin HCl 25 MG HCl 25 MG e HCl 25 MG HYDROcodone HYDROcodone No HYDROcodon -Acetaminop -Acetaminop e-Acetamin hen 10-325 hen 10-325 ophen MG MG 10-325 MG Ondansetron Ondansetron No Ondansetro HCl 8 MG HCl 8 MG n HCl 8 MG EPINEPHrine EPINEPHrine No EPINEPHrin 0.3 0.3 e 0.3 MG/0.3ML MG/0.3ML MG/0.3ML Sildenafil Sildenafil No 1{table QD Sildenafil Citrate 100 Citrate 100 t_as_ne Citrate MG MG eded} 100 MG Cyclobenzap Cyclobenzap No Cyclobenza rine HCl 10 rine HCl 10 avel HCl MG MG 10 MG Escitalopra Escitalopra No 1{table QD Escitalopr m Oxalate m Oxalate t} am Oxalate 20 MG 20 MG 20 MG Pantoprazol Pantoprazol No Pantoprazo e Sodium 40 e Sodium 40 le Sodium MG MG 40 MG traZODone traZODone No traZODone HCl 50 MG HCl 50 MG HCl 50 MG hydrOXYzine hydrOXYzine No BID hydrOXYzin HCl 25 MG HCl 25 MG e HCl 25 MG EPINEPHrine EPINEPHrine No EPINEPHrin 0.3 0.3 e 0.3 MG/0.3ML MG/0.3ML MG/0.3ML HYDROcodone HYDROcodone No HYDROcodon -Acetaminop -Acetaminop e-Acetamin hen 10-325 hen 10-325 ophen MG MG 10-325 MG Escitalopra Escitalopra No 1{table QD Escitalopr m Oxalate m Oxalate t} am Oxalate 20 MG 20 MG 20 MG Pantoprazol Pantoprazol No Pantoprazo e Sodium 40 e Sodium 40 le Sodium MG MG 40 MG Ondansetron Ondansetron No Ondansetro HCl 8 MG HCl 8 MG n HCl 8 MG traZODone traZODone No traZODone HCl 50 MG HCl 50 MG HCl 50 MG Sildenafil Sildenafil No 1{table QD Sildenafil Citrate 100 Citrate 100 t_as_ne Citrate MG MG eded} 100 MG hydrOXYzine hydrOXYzine No BID hydrOXYzin HCl 25 MG HCl 25 MG e HCl 25 MG Cyclobenzap Cyclobenzap No Cyclobenza rine HCl 10 rine HCl 10 avel HCl MG MG 10 MG Ondansetron Ondansetron No Ondansetro HCl 8 MG HCl 8 MG n HCl 8 MG traZODone traZODone No traZODone HCl 50 MG HCl 50 MG HCl 50 MG hydrOXYzine hydrOXYzine No BID hydrOXYzin HCl 25 MG HCl 25 MG e HCl 25 MG Cyclobenzap Cyclobenzap No Cyclobenza rine HCl 10 rine HCl 10 avel HCl MG MG 10 MG Escitalopra Escitalopra No 1{table QD Escitalopr m Oxalate m Oxalate t} am Oxalate 20 MG 20 MG 20 MG HYDROcodone HYDROcodone No HYDROcodon -Acetaminop -Acetaminop e-Acetamin hen 10-325 hen 10-325 ophen MG MG 10-325 MG Sildenafil Sildenafil No 1{table QD Sildenafil Citrate 100 Citrate 100 t_as_ne Citrate MG MG eded} 100 MG EPINEPHrine EPINEPHrine No EPINEPHrin 0.3 0.3 e 0.3 MG/0.3ML MG/0.3ML MG/0.3ML Pantoprazol Pantoprazol No Pantoprazo e Sodium 40 e Sodium 40 le Sodium MG MG 40 MG Ondansetron Ondansetron No Ondansetro HCl 8 MG HCl 8 MG n HCl 8 MG traZODone traZODone No traZODone HCl 50 MG HCl 50 MG HCl 50 MG hydrOXYzine hydrOXYzine No BID hydrOXYzin HCl 25 MG HCl 25 MG e HCl 25 MG Cyclobenzap Cyclobenzap No Cyclobenza rine HCl 10 rine HCl 10 avel HCl MG MG 10 MG Escitalopra Escitalopra No 1{table QD Escitalopr m Oxalate m Oxalate t} am Oxalate 20 MG 20 MG 20 MG HYDROcodone HYDROcodone No HYDROcodon -Acetaminop -Acetaminop e-Acetamin hen 10-325 hen 10-325 ophen MG MG 10-325 MG Sildenafil Sildenafil No 1{table QD Sildenafil Citrate 100 Citrate 100 t_as_ne Citrate MG MG eded} 100 MG EPINEPHrine EPINEPHrine No EPINEPHrin 0.3 0.3 e 0.3 MG/0.3ML MG/0.3ML MG/0.3ML Pantoprazol Pantoprazol No Pantoprazo e Sodium 40 e Sodium 40 le Sodium MG MG 40 MG Cyclobenzap Cyclobenzap No Cyclobenza rine HCl 10 rine HCl 10 avel HCl MG MG 10 MG hydrOXYzine hydrOXYzine No BID hydrOXYzin HCl 25 MG HCl 25 MG e HCl 25 MG EPINEPHrine EPINEPHrine No EPINEPHrin 0.3 0.3 e 0.3 MG/0.3ML MG/0.3ML MG/0.3ML Escitalopra Escitalopra No 1{table QD Escitalopr m Oxalate m Oxalate t} am Oxalate 20 MG 20 MG 20 MG Sildenafil Sildenafil No 1{table QD Sildenafil Citrate 100 Citrate 100 t_as_ne Citrate MG MG eded} 100 MG Ondansetron Ondansetron No Ondansetro HCl 8 MG HCl 8 MG n HCl 8 MG Pantoprazol Pantoprazol No 1{table QD Pantoprazo e Sodium 40 e Sodium 40 t} le Sodium MG MG 40 MG traZODone traZODone No traZODone HCl 50 MG HCl 50 MG HCl 50 MG HYDROcodone HYDROcodone No HYDROcodon -Acetaminop -Acetaminop e-Acetamin hen 10-325 hen 10-325 ophen MG MG 10-325 MG HYDROcodone HYDROcodone No HYDROcodon -Acetaminop -Acetaminop e-Acetamin hen 10-325 hen 10-325 ophen MG MG 10-325 MG Pantoprazol Pantoprazol No 1{table QD Pantoprazo e Sodium 40 e Sodium 40 t} le Sodium MG MG 40 MG EPINEPHrine EPINEPHrine No EPINEPHrin 0.3 0.3 e 0.3 MG/0.3ML MG/0.3ML MG/0.3ML hydrOXYzine hydrOXYzine No BID hydrOXYzin HCl 25 MG HCl 25 MG e HCl 25 MG Immunizations Ordered Filled Immunization Date Status Comments Sourc e Immunization Name Name PFIZER READY TO USE 2022-01-09 Completed [facility] COVID-19 MRNA 00:00:00 Hospital VACCINATION PFIZER READY TO USE 2022-01-09 Completed [facility] COVID-19 MRNA 00:00:00 Hospital VACCINATION PFIZER COVID-19 2021-12-19 Completed [facility] VACCINATION 00:00:00 Hospital PFIZER COVID-19 2021-12-19 Completed [facility] VACCINATION 00:00:00 Hospital PFIZER COVID-19 Unknown Completed [facility] VACCINATION Hospital PFIZER READY TO USE Unknown Completed [facility] COVID-19 MRNA Hospital VACCINATION Vital Signs Vital Name Observation Time Observation Value Comments Source HEIGHT 2021-08-14 06:25:00 182.9 cm WEIGHT 2021-08-14 06:25:00 78.7 kg HEIGHT 2021-08-03 15:12:00 182.9 cm WEIGHT 2021-08-03 15:12:00 70.761 kg HEIGHT 2021-06-22 13:09:00 182.9 cm WEIGHT 2021-06-22 13:09:00 77.111 kg HEIGHT 2021-01-23 07:30:00 182.9 cm WEIGHT 2021-01-23 07:30:00 83.6 kg HEIGHT 2021-01-05 09:22:00 182.9 cm WEIGHT 2021-01-05 09:22:00 87.998 kg HEIGHT 2020-10-05 09:00:00 182.9 cm WEIGHT 2020-10-05 09:00:00 85 kg HEIGHT 2020-08-10 00:00:00 182.9 cm WEIGHT 2020-08-10 00:00:00 85.1 kg WEIGHT 2023-05-13 09:03:00 79.379 kg WEIGHT 2023-05-13 09:03:00 79.379 kg HEIGHT 2023-03-13 10:00:00 182.9 cm WEIGHT 2023-03-13 10:00:00 111.766 kg HEIGHT 2023-03-05 12:32:00 182.9 cm WEIGHT 2023-03-05 12:32:00 86.183 kg HEIGHT 2023-03-13 10:00:00 182.9 cm WEIGHT 2023-03-13 10:00:00 111.766 kg HEIGHT 2023-03-05 12:32:00 182.9 cm WEIGHT 2023-03-05 12:32:00 86.183 kg Systolic blood 2023-03-01 19:29:00 108 mm[Hg] Univer sity of pressure [facility] Diastolic blood 2023-03-01 19:29:00 66 mm[Hg] Unive rsity of pressure [facility] Heart rate 2023-03-01 19:29:00 72 /min [facility] Respiratory rate 2023-03-01 19:29:00 17 /min Univ ersity [facility] Body height 2023-03-01 19:29:00 180.3 cm Universi ty [facility] Body weight 2023-03-01 19:29:00 86.183 kg Universi [facility] BMI 2023-03-01 19:29:00 26.50 kg/m2 [facility] Oxygen saturation in 2023-03-01 19:29:00 94 /min [facility] blood by [facility] Pulse oximetry Branch height 2022-10-17 11:40:00 71 [in_i] Common [facility] weight 2022-10-17 11:40:00 221 [lb_av] [facility] bmi 2022-10-17 11:40:00 30.82 kg/m2 [facility] height 2022-09-13 16:20:00 71 [in_i] [facility] weight 2022-09-13 16:20:00 225.2 [lb_av] [facility] temperature 2022-09-13 16:20:00 97.3 [degF] [facility] bmi 2022-09-13 16:20:00 31.41 kg/m2 [facility] oximetry 2022-09-13 16:20:00 96 % [facility] respiratory rate 2022-09-13 16:20:00 18 /min Comm on [facility] blood pressure 2022-09-13 16:20:00 122 mm[Hg] Common [facility] - systolic [facility] blood pressure 2022-09-13 16:20:00 69 mm[Hg] Common [facility] - diastolic [facility] height 2022-07-24 14:20:00 71 [in_i] [facility] weight 2022-07-24 14:20:00 175 [lb_av] [facility] temperature 2022-07-24 14:20:00 102.4 [degF] [facility] bmi 2022-07-24 14:20:00 24.4 kg/m2 [facility] height 2022-06-29 16:20:00 71 [in_i] [facility] weight 2022-06-29 16:20:00 185 [lb_av] [facility] bmi 2022-06-29 16:20:00 25.8 kg/m2 [facility] HEIGHT 2022-05-09 09:58:00 180.3 cm WEIGHT 2022-05-09 09:58:00 79.9 kg HEIGHT 2022-05-03 16:46:00 175.3 cm WEIGHT 2022-05-03 16:46:00 81.194 kg HEIGHT 2022-05-09 09:58:00 180.3 cm WEIGHT 2022-05-09 09:58:00 79.9 kg HEIGHT 2022-05-03 16:46:00 175.3 cm WEIGHT 2022-05-03 16:46:00 81.194 kg HEIGHT 2022-05-06 23:09:00 182.9 cm WEIGHT 2022-05-06 23:09:00 78.019 kg HEIGHT 2022-05-05 23:01:00 182.9 cm WEIGHT 2022-05-05 23:01:00 77.111 kg HEIGHT 2022-05-06 23:09:00 182.9 cm WEIGHT 2022-05-06 23:09:00 78.019 kg HEIGHT 2022-05-05 23:01:00 182.9 cm WEIGHT 2022-05-05 23:01:00 77.111 kg HEIGHT 2022-04-22 00:22:00 182.9 cm WEIGHT 2022-04-22 00:22:00 79.379 kg HEIGHT 2022-04-22 00:22:00 182.9 cm WEIGHT 2022-04-22 00:22:00 79.379 kg height 2022-04-04 09:00:00 71 [in_i] [facility] weight 2022-04-04 09:00:00 165 [lb_av] [facility] bmi 2022-04-04 09:00:00 23.01 kg/m2 [facility] height 2022-03-26 16:40:00 71 [in_i] [facility] weight 2022-03-26 16:40:00 170 [lb_av] [facility] bmi 2022-03-26 16:40:00 23.71 kg/m2 [facility] HEIGHT 2022-03-07 20:30:00 182.9 cm WEIGHT 2022-03-07 20:30:00 74.844 kg HEIGHT 2022-03-07 20:30:00 182.9 cm WEIGHT 2022-03-07 20:30:00 74.844 kg HEIGHT 2022-02-27 10:20:00 180.3 cm WEIGHT 2022-02-27 10:20:00 75.887 kg HEIGHT 2022-02-26 14:55:00 180.3 cm WEIGHT 2022-02-26 14:55:00 86.183 kg HEIGHT 2022-02-27 10:20:00 180.3 cm WEIGHT 2022-02-27 10:20:00 75.887 kg HEIGHT 2022-02-26 14:55:00 180.3 cm WEIGHT 2022-02-26 14:55:00 86.183 kg HEIGHT 2022-02-02 21:54:00 175.3 cm WEIGHT 2022-02-02 21:54:00 79.379 kg HEIGHT 2022-02-02 21:54:00 175.3 cm WEIGHT 2022-02-02 21:54:00 79.379 kg height 2022-02-02 09:40:00 71 [in_i] [facility] weight 2022-02-02 09:40:00 197.8 [lb_av] [facility] temperature 2022-02-02 09:40:00 97.4 [degF] [facility] bmi 2022-02-02 09:40:00 27.58 kg/m2 [facility] oximetry 2022-02-02 09:40:00 97 % [facility] respiratory rate 2022-02-02 09:40:00 16 /min [facility] blood pressure 2022-02-02 09:40:00 123 mm[Hg] Common [facility] systolic [facility] blood pressure 2022-02-02 09:40:00 80 mm[Hg] Common [facility] - diastolic [facility] HEIGHT 2022-02-01 21:20:00 175.3 cm WEIGHT 2022-02-01 21:20:00 79.379 kg HEIGHT 2022-02-01 21:20:00 175.3 cm WEIGHT 2022-02-01 21:20:00 79.379 kg HEIGHT 2022-01-22 14:06:00 180.3 cm WEIGHT 2022-01-22 14:06:00 79.379 kg HEIGHT 2022-01-22 14:06:00 180.3 cm WEIGHT 2022-01-22 14:06:00 79.379 kg height 2022-01-03 09:40:00 71 [in_i] [facility] weight 2022-01-03 09:40:00 195 [lb_av] [facility] bmi 2022-01-03 09:40:00 27.19 kg/m2 [facility] height 2021-10-23 08:20:00 71 [in_i] [facility] weight 2021-10-23 08:20:00 184.8 [lb_av] [facility] temperature 2021-10-23 08:20:00 99.0 [degF] [facility] bmi 2021-10-23 08:20:00 25.77 kg/m2 [facility] oximetry 2021-10-23 08:20:00 99 % [facility] respiratory rate 2021-10-23 08:20:00 16 /min [facility] blood pressure 2021-10-23 08:20:00 120 mm[Hg] Common [facility] systolic [facility] blood pressure 2021-10-23 08:20:00 72 mm[Hg] [facility] - diastolic [facility] HEIGHT 2020-10-05 09:00:00 182.9 cm WEIGHT 2020-10-05 09:00:00 85 kg HEIGHT 2020-08-10 00:00:00 182.9 cm WEIGHT 2020-08-10 00:00:00 85.1 kg HEIGHT 2020-08-03 00:00:00 182.9 cm WEIGHT 2020-08-03 00:00:00 85.276 kg Systolic blood 2023-05-15 10:30:00 133 mm[Hg] [facility] Diastolic blood 2023-05-15 10:30:00 89 mm[Hg] [facility] Heart rate 2023-05-15 10:30:00 103 /min [facility] Respiratory rate 2023-05-15 10:30:00 17 /min [facility] Oxygen saturation in 2023-05-15 10:30:00 100 /min [facility] Arterial blood by Medical Ce [facility]ter Pulse oximetry Body temperature 2023-05-15 07:57:00 36.33 Gabriela [facility] Body weight 2023-05-13 09:03:00 79.379 kg [facility] BMI 2023-05-13 09:03:00 23.73 kg/m2 [facility] Systolic blood 2023-03-13 15:38:00 105 mm[Hg] [facility] Diastolic blood 2023-03-13 15:38:00 59 mm[Hg] [facility] Heart rate 2023-03-13 15:38:00 66 /min [facility] Body temperature 2023-03-13 15:38:00 36.44 Gabriela [facility] Respiratory rate 2023-03-13 15:38:00 20 /min [facility] Oxygen saturation in 2023-03-13 15:38:00 93 /min [facility] Arterial blood by [facility] Pulse oximetry Body height 2023-03-13 10:00:00 182.9 cm [facility] Body weight 2023-03-13 10:00:00 111.766 kg [facility] BMI 2023-03-13 10:00:00 33.41 kg/m2 [facility] Systolic blood 2022-05-10 11:47:00 128 mm[Hg] [facility] Diastolic blood 2022-05-10 11:47:00 71 mm[Hg] [facility] Heart rate 2022-05-10 11:47:00 97 /min [facility] Body temperature 2022-05-10 11:47:00 35.67 Gabriela [facility] Respiratory rate 2022-05-10 11:47:00 18 /min [facility] Oxygen saturation in 2022-05-10 11:47:00 96 /min [facility] Arterial blood by [facility] Pulse oximetry Body height 2022-05-09 09:58:00 180.3 cm [facility] Body weight 2022-05-09 09:58:00 79.9 kg [facility] BMI 2022-05-09 09:58:00 24.57 kg/m2 [facility] Procedures Procedure Date / Time Performing Clinician Source Performed BASIC METABOLIC PANEL 2023-05-15 03:56[facility]00 [facility]-15 03:56:00 Ethan Bren [facility] BASIC METABOLIC PANEL 2023-05-14 10:01:00 [facility] 2023-05-14 10:01:00 Nima Alexander [facility] PHOSPHORUS 2023-05-14 10:01:00 [facility] XR ABDOMEN 2 VIEWS FLAT 2023-05-13 01:28:00 [facility] AND UPRIGHT Center CBC W/PLT COUNT & AUTO 2023-05-12 23:32:00 [facility] DIFFERENTIAL Center COMPREHENSIVE METABOLIC 2023-05-12 23:32:00 [facility] PANEL Center LIPASE 2023-05-12 23:32:00 Dorothy Conrad [facility] CBC W/PLT COUNT & AUTO 2023-05-12 23:32:00 Dorothy Conrad [facility] DIFFERENTIAL Center TISSUE EXAM 2023-03-13 12:58:00 Eduardo Calderon [facility] REPLACEMENT, SPINAL CORD 2023-03-13 11:47:00 Eduardo Calderon [facility] STIMULATOR Center TYPE AND SCREEN, AUTOMATED 2023-03-13 10:08:00 KofiSol Carlo [facility] AUTHORIZATION FOR RELEASE 2023-03-04 05:01:00 Doctor Unassigned, [facility] ASSIGNMENT OF BENEFITS 2023-03-01 20:44:12 Doctor Unassigned, [facility] CONSENT/REFUSAL FOR 2023-03-01 20:43:58 Doctor Unassigned, [facility] DIAGNOSIS AND TREATMENT [facility] ASSIGNMENT OF BENEFITS 2023-03-01 19:06:47 Doctor Unassigned, [facility] [place] FLUORO NON-SPECIFIC UP 2022-05-09 15:29:00 Cornell Calderon [facility] TO 1 HOUR Center INSERTION, INTRATHECAL 2022-05-09 14:10:00 Eduardo Caledron [facility] PUMP Center INSERTION, CATHETER, 2022-05-09 14:10:00 Eduardo Calderon [facility] INTRATHECAL OR EPIDURAL Center PROCEDURE W/ C-ARM 2022-05-09 14:10:00 Kvng, Eduardo [facility] SARS-COV2/RT-PCR ([facility] & 2022-05-06 06:25:00 Anuradha Patricio [facility] REF LABS) Center CBC W/PLT COUNT & AUTO 2022-05-06 00:07:00 Karol Kelsey [facility] DIFFERENTIAL [facility] BASIC METABOLIC PANEL 2022-05-06 00:07:00 Karol Kelsey [facility] Center CBC W/PLT COUNT & AUTO 2022-05-06 00:07:00 Karol Kelsey [facility] APTT 2022-04-26 10:38:00 Kvng Eduardo [facility] PROTHROMBIN TIME/INR 2022-04-26 10:38:00 Eduardo Calderon [facility] URINALYSIS W/ REFLEX URINE 2022-04-26 10:38:00 Odilon Calderon in [facility] BASIC METABOLIC PANEL 2022-04-26 10:38:00 Eduardo Calderon [facility] CBC W/PLT COUNT & AUTO 2022-04-26 10:38:00 Eduardo Calderon [facility] TYPE AND SCREEN, AUTOMATED 2022-04-26 10:38:00 Odlion Calderon [facility] CBC W/PLT COUNT & AUTO 2022-04-26 10:38:00 Eduardo Calderon [facility] XR SPINE THORACIC 2 VIEWS 2022-04-22 05:12:00 [facility] COMPREHENSIVE METABOLIC 2022-03-08 01:13:00 [facility] URINALYSIS W/ REFLEX URINE 2022-03-08 00:06:00 [facility] CBC W/PLT COUNT & AUTO 2022-03-08 00:06:00 [facility] CBC W/PLT COUNT & AUTO 2022-03-08 00:06:00 [facility] [place] BASIC METABOLIC PANEL 2022-02-28 04:06:00 [facility] CBC (HEMOGRAM ONLY) 2022-02-28 04:06:00 [facility] [place] FLUORO NON-SPECIFIC UP 2022-02-27 13:55:00 Cornell Calderon [facility] 1 HOUR Center TISSUE EXAM 2022-02-27 13:55:00 Kvng, [facility] LAMINECTOMY, SPINE, WITH 2022-02-27 11:30:00 Kvng [facility] NEUROSTIMULATOR ELECTRODE [place] LEAD INSERTION REMOVAL, ELECTRODE LEAD, 2022-02-27 11:30:00 Kvng Eduardo [facility] NEUROSTIMULATOR [place] REMOVAL OF NEUROSTIMULATOR 2022-02-27 11:30:00 Odilon Calderon [facility] OR REVISION OF PROCEDURE Center INVOLVING NEUROSTIMULATOR PROCEDURE W/ C-ARM 2022-02-27 11:30:00 Kvng [facility] XR CHEST 2 VIEWS 2022-02-13 10:09:00 Kvng, [facility] URINALYSIS W/ REFLEX URINE 2022-02-13 09:29:00 Odilon Calderon [facility] CULTURE Center BASIC METABOLIC PANEL 2022-02-13 09:29:00 Eduardo Calderon [facility] CBC W/PLT COUNT & AUTO 2022-02-13 09:29:00 Eduardo Calderon [facility] PROTHROMBIN TIME/INR 2022-02-13 09:29:00 Kvng, [facility] PT/APTT 2022-02-13 09:29:00 Kvng [facility] TYPE AND SCREEN, AUTOMATED 2022-02-13 09:29:00 Odilon Calderon [facility] CBC W/PLT COUNT & AUTO 2022-02-13 09:29:00 Eduardo Calderon [facility] ECG 12-LEAD 2022-02-13 09:24:56 [facility] CT BRAIN WITHOUT IV 2022-02-02 22:17:00 Michelet Shah [facility] CONTRAST [place] XR LUMBAR SPINE 2 OR 3 2022-01-22 14:41:00 Michelet Shah [facility] VIEWS [place] SARS-COV2/RT-PCR ([facility] & 2022-01-22 14:24:00 Michelet Shah [facility] REF LABS) Center CBC W/PLT COUNT & AUTO 2022-01-22 14:24:00 Michelet Shah [facility] DIFFERENTIAL Center BASIC METABOLIC PANEL 2022-01-22 14:24:00 Michelet Shah [facility] CBC W/PLT COUNT & AUTO 2022-01-22 14:24:00 Michelet Shah [facility] Center Plan of Care Planned Activity Planned Date Details Comments Source Future Scheduled 2023-09-22 COVID-19 VACCINE (3 - [facility] Test 05:55:23 season) [code = Hosp ital COVID-19 VACCINE (3 - season)] Future Scheduled 2023-09-22 INFLUENZA VACCINE (#1) M ethodist Test 05:55:23 [code = INFLUENZA VACCINE Ho spital (#1)] Future Scheduled 2023-07-26 Influenza Vaccine (#1) [facility] Test 00:00:00 [code = Influenza Vaccine Me dical Center (#1)] Future Scheduled 2023-07-26 INFLUENZA VACCINE (Season [facility] Test 00:00:00 Ended) [code = INFLUENZA Med ical Center VACCINE (Season Ended)] Future Scheduled 2023-07-26 INFLUENZA VACCINE (Season [facility] Test 00:00:00 Ended) [code = INFLUENZA Med ical Center VACCINE (Season Ended)] Future Scheduled 2023-07-26 INFLUENZA VACCINE (Season [facility] Test 00:00:00 Ended) [code = INFLUENZA Med ical Center VACCINE (Season Ended)] Future Scheduled 2023-07-26 Influenza Vaccine (Season [facility] Test 00:00:00 Ended) [code = [facility] Vacc[facility] (Season Ended)] Future Scheduled 2023-07-26 Influenza Vaccine (#1) [facility] [code = Influenza Vaccine [facility] (#1)] Future Scheduled 2023-07-26 Influenza Vaccine (#1[facility] [code = Influenza Vaccine [facility] (#1)] Future Scheduled 2023-07-26 Influenza Vaccine (#1[facility] [code = Influenza Vaccine [facility] (#1)] Future Scheduled 2023-07-26 Influenza Vaccine (#1) [facility] [code = Influenza Vaccine [facility] (#1)] Future Scheduled 2022-11-[address] [facility] 00:00:00 (12+) [code = DEPRESSION Med ical Center SCREENING (12+)] Future Scheduled 2022-11-[address] [facility] 00:00:00 (12+) [code = DEPRESSION Med ical Center SCREENING (12+)] Future Scheduled 2022-11-[address] [facility] 00:00:00 (12+) [code = DEPRESSION Med ical Center SCREENING (12+)] Future Scheduled 2022-11-[address] [facility] 00:00:00 (12+) [code = DEPRESSION Med ical Center SCREENING (12+)] Future Scheduled 2022-11-[address] [facility] 00:00:00 (12+) [code = DEPRESSION Med ical Center SCREENING (12+)] Future Scheduled 2022-11-[address] [facility] 00:00:00 (12+) [code = DEPRESSION Med ical Center SCREENING (12+)] Future Scheduled 2022-11-[address] [facility] 00:00:00 (12+) [code = DEPRESSION Med ical Center SCREENING (12+)] Future Scheduled 2022-11-[address] [facility] 00:00:00 (12+) [code = DEPRESSION Med ical Center SCREENING (12+)] Future Scheduled 2022-11-[address] [facility] 00:00:00 (12+) [code = DEPRESSION Med ical Center SCREENING (12+)] Future Scheduled 2022-11-[address] [facility] 00:00:00 (12+) [code = DEPRESSION Med ical Center SCREENING (12+)] Future Scheduled 2022-11-[address] [facility] 00:00:00 (12+) [code = DEPRESSION Med ical Center SCREENING (12+)] Future Scheduled 2022-11-[address] [facility] 00:00:00 (12+) [code = DEPRESSION Med ical Center SCREENING (12+)] Future Scheduled 2022-11-[address] [facility] 00:00:00 (12+) [code = DEPRESSION Med ical Center SCREENING (12+)] Future Scheduled 2022-11-[address] [facility] 00:00:00 (12+) [code = DEPRESSION Med ical Center SCREENING (12+)] Future Scheduled 2022-08-14 HEPATITIS B VACCINES (1 [facility] 02:16:10 of 3 - 3-dose series) Hospit al [code = HEPATITIS B VACCINES (1 of 3 - 3-dose series)] Future Scheduled 2022-08-14 [facility] (procedure) [code = Hospital [id number]] Future Scheduled 2022-08-14 COVID-19 VACCINE (3 - [facility]16:10 Booster for Pfizer Hospital series) [code = COVID-19 VACCINE (3 - Booster for Pfizer series)] Future Scheduled 2022-08-14 INFLUENZA VACCINE [code = [facility] 02:16:10 INFLUENZA VACCINE] Hospital Future Scheduled 2022-08-14 HEPATITIS B VACCINES (1 [facility] 02:16:10 of 3 - 3-dose series) Hospit al [code = HEPATITIS B VACCINES (1 of 3 - 3-dose series)] Future Scheduled 2022-08-14 [facility] C screening [facility] 02:16:10 (procedure) [code = Hospital [id number]] Future Scheduled 2022-08-14 COVID-19 VACCINE (3 - [facility] 02:16:10 Booster for Pfizer Hospital series) [code = COVID-19 VACCINE (3 - Booster for Pfizer series)] Future Scheduled 2022-08-14 INFLUENZA VACCINE [code = [facility] 02:16:10 INFLUENZA VACCINE] Hospital Future Scheduled 2022-07-26 INFLUENZA VACCINE (#1[facility] [code = INFLUENZA VACCINE Me [facility]ical Center (#1)] Future Scheduled 2022-07-26 INFLUENZA VACCINE (#1) [facility]00 [code = INFLUENZA VACCINE [facility] (#1)] Future Scheduled 2022-07-26 INFLUENZA VACCINE (#1) [facility] 00:00:00 [code = INFLUENZA VACCINE [facility]ical Center (#1)] Future Scheduled 2022-07-26 INFLUENZA VACCINE (#1) [facility] 00:00:00 [code = INFLUENZA VACCINE Me [facility]ical Center (#1)] Future Scheduled 2022-07-26 INFLUENZA VACCINE (#1) [facility] 00:00:00 [code = INFLUENZA VACCINE [facility] Center (#1)] Future Scheduled 2022-07-26 INFLUENZA VACCINE (#1) [facility] 00:00:00 [code = INFLUENZA VACCINE [facility]ical Center (#1)] Future Scheduled 2022-07-26 INFLUENZA VACCINE (#1) [facility] 00:00:00 [code = INFLUENZA VACCINE [facility]ical Center (#1)] Future Scheduled 2022-07-26 INFLUENZA VACCINE (#1) [facility] 00:00:00 [code = INFLUENZA VACCINE Me dical Center (#1)] Future Scheduled 2022-06-08 COVID-19 VACCINE (3 - [facility] Booster for Pfizer Medical C enter series) [code = COVID-19 VACCINE (3 - Booster for Pfizer series)] Future Scheduled 2022-06-08 COVID-19 VACCINE (3 - [facility]:00 Booster for Pfizer Medical C enter series) [code = COVID-19 VACCINE (3 - Booster for Pfizer series)] Future Scheduled 2022-06-08 COVID-19 VACCINE (3 - [facility]:00 Booster for Pfizer Medical C enter series) [code = COVID-19 VACCINE (3 - Booster for Pfizer series)] Future Scheduled 2022-06-08 COVID-19 VACCINE (3 - [facility]:00 Booster for Pfizer Medical C enter series) [code = COVID-19 VACCINE (3 - Booster for Pfizer series)] Future Scheduled 2022-06-08 COVID-19 VACCINE (3 - [facility]:00 Booster for Pfizer Medical C enter series) [code = COVID-19 VACCINE (3 - Booster for Pfizer series)] Future Scheduled 2022-06-08 COVID-19 VACCINE (3 - [facility]:00:00 Booster for Pfizer Medical C enter series) [code = COVID-19 VACCINE (3 - Booster for Pfizer series)] Future Scheduled 2022-06-08 COVID-19 VACCINE (3 - [facility]:00:00 Booster for Pfizer Medical C enter series) [code = COVID-19 VACCINE (3 - Booster for Pfizer series)] Future Scheduled 2022-03-06 COVID-19 VACCINE (3 - [facility] 00:00:00 Booster for Pfizer Medical C enter series) [code = COVID-19 VACCINE (3 - Booster for Pfizer series)] Future Scheduled 2022-03-06 COVID-19 VACCINE (3 - [facility] 00:00:00 Booster for Pfizer Medical C enter series) [code = COVID-19 VACCINE (3 - Booster for Pfizer series)] Future Scheduled 2022-03-06 COVID-19 VACCINE (3 - [facility] 00[facility]00:00 Booster for Pfizer Medical C enter series) [code = COVID-19 VACCINE (3 - Booster for Pfizer series)] Future Scheduled 2022-03-06 COVID-19 VACCINE (3 - [facility]00:00 Booster for Pfizer Medical C enter series) [code = COVID-19 VACCINE (3 - Booster for Pfizer series)] Future Scheduled 2022-03-06 COVID-19 VACCINE (3 - [facility] 00:00:00 Booster for Pfizer Medical C enter series) [code = COVID-19 VACCINE (3 - Booster for Pfizer series)] Future Scheduled 2022-03-06 COVID-19 VACCINE (3 - [facility] 00:00:00 Booster for Pfizer Medical C enter series) [code = COVID-19 VACCINE (3 - Booster for Pfizer series)] Future Scheduled 2022-03-06 COVID-19 VACCINE (3 - [facility] 00:00:00 Booster for Pfizer Medical C enter series) [code = COVID-19 VACCINE (3 - Booster for Pfizer series)] Future Scheduled 2022-03-06 COVID-19 VACCINE (3 - [facility] 00:00:00 Booster for Pfizer Medical C enter series) [code = COVID-19 VACCINE (3 - Booster for Pfizer series)] Future Scheduled 2022-03-06 COVID-19 VACCINE (3 - [facility] 00:00:00 Booster for Pfizer Medical C enter series) [code = COVID-19 VACCINE (3 - Booster for Pfizer series)] Future Scheduled 2022-03-06 COVID-19 VACCINE (3 - [facility] 00:00:00 Booster for Pfizer Medical C enter series) [code = COVID-19 VACCINE (3 - Booster for Pfizer series)] Future Scheduled 2017 Lipid panel (procedure) [facility] 00:00:00 [code = [id number]] Medical Ce nter Future Scheduled 2017 Lipid panel (procedure) [facility] 00:00:00 [code = [id number]] Medical Ce nter Future Scheduled 2017 Lipid panel (procedure) [facility] 00:00:00 [code = [id number]] Medical Ce nter Future Scheduled 2017 Lipid panel (procedure) [facility] 00:00:00 [code = [id number]] Medical Ce nter Future Scheduled 2017 Lipid panel (procedure) [facility] 00:00:00 [code = [id number]] Medical Ce nter Future Scheduled 2017 Lipid panel (procedure) [facility] 00:00:00 [code = [id number]] Medical Ce nter Future Scheduled 2017 Lipid panel (procedure) [facility] 00:00:00 [code = [id number]] Medical Ce nter Future Scheduled 2017 Lipid panel (procedure) [facility] 00:00:00 [code = [id number]] Medical Ce nter Future Scheduled 2017 Lipid panel (procedure) [facility] 00:00:00 [code = [id number]] Medical Ce nter Future Scheduled 2017 Lipid panel (procedure) [facility] 00:00:00 [code = [id number]] Medical Ce nter Future Scheduled 2017 Lipid panel (procedure) [facility] 00:00:00 [code = [id number]] Medical Ce nter Future Scheduled 2017 Lipid panel (procedure) [facility] 00:00:00 [code = [id number]] Medical Ce nter Future Scheduled 2017 Lipid panel (procedure) [facility] 00:00:00 [code = [id number]] Medical Ce nter Future Scheduled 2017 Lipid panel (procedure) [facility] 00:00:00 [code = [id number]] Medical Ce nter Future Scheduled 2017 Lipid panel (procedure) [facility] 00:00:00 [code = [id number]] Medical Ce nter Future Scheduled 2017 Lipid panel (procedure) [facility] 00:00:00 [code = [id number]] Medical Ce nter Future Scheduled 2017 Lipid panel (procedure) [facility] 00:00:00 [code = [id number]] Medical Ce nter Future Scheduled 2001 DTAP/TDAP/TD VACCINES ([address] [facility] 00:00:00 - Tdap) [code = Medical Cent er DTAP/TDAP/TD VACCINES (1 - Tdap)] Future Scheduled 2001 DTAP/TDAP/TD VACCINES ([address] [facility] 00:00:00 - Tdap) [code = Medical Cent er DTAP/TDAP/TD VACCINES (1 - Tdap)] Future Scheduled 2001 DTAP/TDAP/TD VACCINES ([address] [facility] 00:00:00 - Tdap) [code = Medical Cent er DTAP/TDAP/TD VACCINES (1 - Tdap)] Future Scheduled 2001 DTAP/TDAP/TD VACCINES ([address] [facility] 00:00:00 - Tdap) [code = Medical Cent er DTAP/TDAP/TD VACCINES (1 - Tdap)] Future Scheduled 2001 DTAP/TDAP/TD VACCINES ([address] [facility] 00:00:00 - Tdap) [code = Medical Cent er DTAP/TDAP/TD VACCINES (1 - Tdap)] Future Scheduled 2001 DTAP/TDAP/TD VACCINES ([address] [facility] 00:00:00 - Tdap) [code = Medical Cent er DTAP/TDAP/TD VACCINES (1 - Tdap)] Future Scheduled 2001 DTAP/TDAP/TD VACCINES ([address] [facility] 00:00:00 - Tdap) [code = Medical Cent er DTAP/TDAP/TD VACCINES (1 - Tdap)] Future Scheduled 2001 DTAP/TDAP/TD VACCINES ([address] [facility] 00:00:00 - Tdap) [code = Medical Cent er DTAP/TDAP/TD VACCINES (1 - Tdap)] Future Scheduled 2001 DTAP/TDAP/TD VACCINES ([address] [facility] 00:00:00 - Tdap) [code = Medical Cent er DTAP/TDAP/TD VACCINES (1 - Tdap)] Future Scheduled 2001 DTAP/TDAP/TD VACCINES ([address] [facility] 00:00:00 - Tdap) [code = Medical Cent er DTAP/TDAP/TD VACCINES (1 - Tdap)] Future Scheduled 2001 DTAP/TDAP/TD VACCINES ([address] [facility] 00:00:00 - Tdap) [code = Medical Cent er DTAP/TDAP/TD VACCINES (1 - Tdap)] Future Scheduled 2001 DTAP/TDAP/TD VACCINES ([address] [facility] 00:00:00 - Tdap) [code = Medical Cent er DTAP/TDAP/TD VACCINES (1 - Tdap)] Future Scheduled 2001 DTAP/TDAP/TD VACCINES ([address] [facility] 00:00:00 - Tdap) [code = Medical Cent er DTAP/TDAP/TD VACCINES (1 - Tdap)] Future Scheduled 2001 DTAP/TDAP/TD VACCINES ([address] [facility] 00:00:00 - Tdap) [code = Medical Cent er DTAP/TDAP/TD VACCINES (1 - Tdap)] Future Scheduled 2001 DTAP/TDAP/TD VACCINES ([address] [facility] 00:00:00 - Tdap) [code = Medical Cent er DTAP/TDAP/TD VACCINES (1 - Tdap)] Future Scheduled 2001 DTAP/TDAP/TD VACCINES ([address] [facility] 00:00:00 - Tdap) [code = Medical Cent er DTAP/TDAP/TD VACCINES (1 - Tdap)] Future Scheduled 2001 DTAP/TDAP/TD VACCINES ([address] [facility] 00:00:00 - Tdap) [code = Medical Cent er DTAP/TDAP/TD VACCINES (1 - Tdap)] Future Scheduled 2000 HE[facility]ITIS C [facility]CRE[facility] [code = HEPATITIS C Medical Center SCREENING] Future Scheduled 2000 HEPATITIS C [facility]:00:00 [code = HEPATITIS C Medical Center SCREENING] Future Scheduled 2000 HEPATITIS C [facility]:00:00 [code = HEPATITIS C Medical Center SCREENING] Future Scheduled 2000 HEPATITIS C [facility]:00:00 [code = HEPATITIS C Medical Center SCREENING] Future Scheduled 2000 HEPATITIS C [facility] 00:00:00 [code = HEPATITIS C Medical Center SCREENING] Future Scheduled 2000 HEPATITIS C [facility] 00:00:00 [code = HEPATITIS C Medical Center SCREENING] Future Scheduled 2000 HEPATITIS C [facility] 00:00:00 [code = HEPATITIS C Medical Center SCREENING] Future Scheduled 2000 HEPATITIS C [facility] 00:00:00 [code = HEPATITIS C Medical Center SCREENING] Future Scheduled 2000 HEPATITIS C [facility] 00:00:00 [code = HEPATITIS C Medical Center SCREENING] Future Scheduled 2000 HEPATITIS C [facility] 00:00:00 [code = HEPATITIS C Medical Center SCREENING] Future Scheduled 2000 HEPATITIS C [facility] 00:00:00 [code = HEPATITIS C Medical Center SCREENING] Future Scheduled 2000 HEPATITIS C [facility] 00:00:00 [code = HEPATITIS C Medical Center SCREENING] Future Scheduled 2000 [facility]ITIS C [facility] 00:00:00 [code = HEPATITIS C Medical Center SCREENING] Future Scheduled 2000 [facility]ITIS C [facility] 00:00:00 [code = HEPATITIS C Medical Center SCREENING] Future Scheduled 2000 [facility]PATITIS C [facility] 00:00:00 [code = HEPATITIS C Medical Center SCREENING] Future Scheduled 2000 [facility]PATITIS C [facility] 00:00:00 [code = HEPATITIS C Medical Center SCREENING] Future Scheduled 2000 [facility]ITIS C [facility] 00:00:00 [code = HEPATITIS C Medical Center SCREENING] Future Scheduled [address] [facility] 00:[facility]:00 virus screening [facility] er (procedure) [code = [id number]] Future Scheduled [address] [facility] 00:00:00 virus screening [facility] (procedure) [code = [id number]] Future Scheduled [address] [facility] 00:00:00 virus screening [facility] er (procedure) [code = [id number]] Future Scheduled [address] [facility] 00:00:00 virus screening [facility] er (procedure) [code = [id number]] Future Scheduled [address] [facility] 00:00:00 virus screening Medical Cent er (procedure) [code = [id number]] Future Scheduled [address] [facility] 00:00:00 Counseling and Screening Med ical Center (12+) [code = Tobacco Cessation Counseling and Screening (12+)] Future Scheduled [address] [facility] 00:00:00 Counseling and Screening Med ical Center (12+) [code = Tobacco Cessation Counseling and Screening (12+)] Future Scheduled [address] [facility] 00:00:00 Counseling and Screening Med ical Center (12+) [code = Tobacco Cessation Counseling and Screening (12+)] Future Scheduled [address] [facility] 00:00:00 Counseling and Screening Med ical Center (12+) [code = Tobacco Cessation Counseling and Screening (12+)] Future Scheduled [address] [facility] 00:00:00 Counseling and Screening Med ical Center (12+) [code = Tobacco Cessation Counseling and Screening (12+)] Future Scheduled [address] [facility] 00:00:00 Counseling and Screening Med ical Center (12+) [code = Tobacco Cessation Counseling and Screening (12+)] Future Scheduled [address] [facility] 00:00:00 Counseling and Screening Med ical Center (12+) [code = Tobacco Cessation Counseling and Screening (12+)] Future Scheduled [address] [facility] 00:00:00 Counseling and Screening Med ical Center (12+) [code = Tobacco Cessation Counseling and Screening (12+)] Future Scheduled [address] [facility] 00:00:00 Counseling and Screening Med ical Center (12+) [code = Tobacco Cessation Counseling and Screening (12+)] Future Scheduled [address] [facility] 00:00:00 Counseling and Screening Med ical Center (12+) [code = Tobacco Cessation Counseling and Screening (12+)] Future Scheduled [address] [facility] 00:00:00 Counseling and Screening Med ical Center (12+) [code = Tobacco Cessation Counseling and Screening (12+)] Future Scheduled [address] [facility] 00:00:00 Counseling and Screening Med ical Center (12+) [code = Tobacco Cessation Counseling and Screening (12+)] Future Scheduled [address] [facility] 00:00:00 Counseling and Screening Med ical Center (12+) [code = Tobacco Cessation Counseling and Screening (12+)] Future Scheduled [address] [facility] 00:00:00 Counseling and Screening Med ical Center (12+) [code = Tobacco Cessation Counseling and Screening (12+)] Future Scheduled [address] [facility] 00:00:00 Counseling and Screening Med ical Center (12+) [code = Tobacco Cessation Counseling and Screening (12+)] Future Scheduled [address] [facility] 00:00:00 Counseling and Screening Med ical Center (12+) [code = Tobacco Cessation Counseling and Screening (12+)] Future Scheduled 1988 Pneumococcal Vaccine: [facility]:00 0-64 Years (1 - PCV) Medical Center [code = Pneumococcal Vaccine: 0-64 Years (1 - PCV)] Future Scheduled 1988 PNEUMOCOCCAL VACCINE 0-[address] [facility] 00:00:00 YRS (1 - PCV) [code = Medica l Center PNEUMOCOCCAL VACCINE 0-64 YRS (1 - PCV)] Future Scheduled 1988 PNEUMOCOCCAL VACCINE 0-[address] [facility] 00:00:00 YRS (1 - PCV) [code = Medica l Center PNEUMOCOCCAL VACCINE 0-64 YRS (1 - PCV)] Future Scheduled 1988 PNEUMOCOCCAL VACCINE 0-[address] [facility] 00:00:00 YRS (1 - PCV) [code = Medica l Center PNEUMOCOCCAL VACCINE 0-64 YRS (1 - PCV)] Future Scheduled 1988 PNEUMOCOCCAL VACCINE 0-[address] [facility] 00:00:00 YRS (1 - PCV) [code = Medica l Center PNEUMOCOCCAL VACCINE 0-64 YRS (1 - PCV)] Future Scheduled 1988 PNEUMOCOCCAL VACCINE 0-[address] [facility] 00:00:00 YRS (1 - PCV) [code = Medica l Center PNEUMOCOCCAL VACCINE 0-64 YRS (1 - PCV)] Future Scheduled 1988 PNEUMOCOCCAL VACCINE 0-[address] [facility] 00:00:00 YRS (1 - PCV) [code = Medica l Center PNEUMOCOCCAL VACCINE 0-64 YRS (1 - PCV)] Future Scheduled 1988 PNEUMOCOCCAL VACCINE 0-[address] [facility] 00:00:00 YRS (1 - PCV) [code = Medica l Center PNEUMOCOCCAL VACCINE 0-64 YRS (1 - PCV)] Future Scheduled 1988 PNEUMOCOCCAL VACCINE 0-[address] [facility] 00:00:00 YRS (1 - PCV) [code = Medica l Center PNEUMOCOCCAL VACCINE 0-64 YRS (1 - PCV)] Future Scheduled 1988 PNEUMOCOCCAL VACCINE 0-[address] [facility] 00:00:00 YRS (1 - PCV) [code = Medica l Center PNEUMOCOCCAL VACCINE 0-64 YRS (1 - PCV)] Future Scheduled 1988 PNEUMOCOCCAL VACCINE 0-[address] [facility] 00:00:00 YRS (1 - PCV) [code = Medica l Center PNEUMOCOCCAL VACCINE 0-64 YRS (1 - PCV)] Future Scheduled 1988 PNEUMOCOCCAL VACCINE 0-[address] [facility] 00:00:00 YRS (1 - PCV) [code = Medica l Center PNEUMOCOCCAL VACCINE 0-64 YRS (1 - PCV)] Future Scheduled 1988 Pneumococcal Vaccine: [facility]:00 0-64 Years (1 - PCV) Medical Center [code = Pneumococcal Vaccine: 0-64 Years (1 - PCV)] Future Scheduled 1988 Pneumococcal Vaccine: [facility]:00 0-64 Years (1 - PCV) Medical Center [code = Pneumococcal Vaccine: 0-64 Years (1 - PCV)] Future Scheduled 1988 Pneumococcal Vaccine: [facility] 00:00:00 0-64 Years (1 - PCV) Medical Center [code = Pneumococcal Vaccine: 0-64 Years (1 - PCV)] Future Scheduled 1988 Pneumococcal Vaccine: [facility]:00:00 0-64 Years (1 - PCV) Medical Center [code = Pneumococcal Vaccine: 0-64 Years (1 - PCV)] Future Scheduled 1988 Pneumococcal Vaccine: [facility] 00:00:00 0-64 Years (1 - PCV) Medical Center [code = Pneumococcal Vaccine: 0-64 Years (1 - PCV)] Encounters Start End Encounter Admission Attending Care Care Encounter Source Date/Time Date/Time Type Type Clinicians Facility Department ID 2023-10-01 Outpatient [facility], [facility] [id number] Common 09:05:01 Carmen [id number] [facility] 2023-09-30 Outpatient [facility], [facility] [id number] Common 14:37:00 Carmen 25012 [facility] 2023-08-27 Outpatient [facility], [facility] [id number] Common 10:56:00 Carmen [id number] [facility] 2022-10-16 Outpatient [facility], [facility] [id number] Common 10:12:02 Carmen [facility] 2022-09-11 Outpatient [facility], [facility] [id number] Common 15:45:02 Carmen [facility] 2022-08-27 Outpatient [facility], [facility] [id number] Common 16:26:03 Carmen [facility] 2022-05-21 Outpatient [facility], [facility] [id number] Common 14:35:02 Carmen [facility] 2022-04-02 Outpatient [facility], [facility] [id number] Common 13:24:02 Carmen [facility] 2022-03-19 Outpatient [facility], [facility] [id number] Common 10:29:02 Carmen [facility] 2022-01-19 Outpatient [facility]oper, [facility] [id number] Common 09:44:03 Carmen [facility] 2021-12-20 Outpatient [facility]oper, [facility] [id number] Common 14:37:05 Carmen [facility] 2021-12-20 Outpatient [facility]oper, [facility] [id number] Common 14:36:35 Carmen [facility] 2021-12-20 Outpatient [facility], [facility] [id number] Common 14:17:51 Carmen [address] [facility] 2021-09-03 Outpatient JAMES, [facility] [id number] [facility] 11:12:36 [facility] 2021-09-03 Outpatient J[facility], [facility] [id number] [facility] 06:29:27 [facility] 2021-09-02 Outpatient JAMES, [facility] [id number] [facility] 04:31:00 [facility] 2021-09-02 Outpatient JAMES, [facility] [id number] [facility] 03:11:27 [facility] 2021-08-30 Outpatient [facility] Surgery [id number] [facility] 11:39:56 , [facility] 2021-08-30 Outpatient [facility] Surgery [id number] [facility] 07:16:31 , EDUARDO 2023-05-12 2023-05-15 [facility] EdithblankaDorothy hilliard Lasha [facility] [id number] [facility] [address] 21:41:00 11:19:00 [facility] 2023-05-12 2023-05-15 Inpatient ER [place], [facility] Emergency [id number] SLE 21:41:00 11:19:00 ANURADHA 2023-05-13 2023-05-13 Emergency ER [facility] [id number] [facility] 00:47:53 00:47:53 DOROTHY 2023-04-03 2023-04-03 Outpatient Marj SOLIS, [facility] [id number] Univers 10:00:00 10:00:00 CHARO coronado [facility] 2023-03-13 2023-03-13 Hospital [facility] [id number] 09:05:00 16:36:00 Encounter , [facility] 2023-03-13 2023-03-13 Outpatient [facility] Surgery [id number] SLE 09:05:00 16:36:00 , [facility] 2023-03-13 2023-03-13 Anesthesia Jose Yost [facility] [id number] [facility] 11:47:00 13:24:00 Event [facility] 2023-03-13 2023-03-13 Surgery [facility] [id number] 11:35:00 13:05:00 , [facility] 2023-03-13 2023-03-13 Travel [facility] [id number] [facility] 00:[facility] 00:00:00 [facility] 2023-03-12 2023-03-12 Orders [facility] [id number] 00:00:00 00:00:00 Only , [facility] 2023-03-11 2023-03-11 (TEL) [facility] [id number] mmon 00:00:00 00:00:00 Spirit - [facility] 2023-03-05 2023-03-05 Outpatient [facility] [id number] SLE 00:00:00 00:00:00 2023-03-05 2023-03-05 Travel [facility] [id number] [facility] 00:00:00 00:00:00 [facility] 2023-03-04 2023-03-04 Orders Doctor RACHEAL [id number] Univers 00:00:00 00:00:00 Only Unassigned, NOEMI [id number] [facility] [id number] Aleksandar as [phone] [facility] [address] 2023-03-03 2023-03-03 Patient [facility] 1.2.840.114 [id number] Univers 00:00:00 00:00:00 Secure Msg Meggankirstensiria VITATON 350.1.13.10 it[place] [phone] Ms dical NAL 059 [facility] 2023-03-01 2023-03-01 Hospital [facility] 1.2.840.114 [id number] Univers 15:42:08 23:59:00 Encounter Charo SUNG 350.1.13.10 [facility] [place] [phone] [facility] [address] [place] 2023-03-01 2023-03-01 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 Hardeep Worley Lab Main [facility] 1.2.8 40.114 [id number] Univers 16:00:00 16:15:00 Visit Charo Solis 350.1.13.10 it[place] [phone] Ms dical NAL 353 [facility] 2023-03-01 2023-03-01 Outpatient R [facility] [id number] Univers 14:20:00 15:21:36 CHARO ity o f [facility] 2023-03-01 2023-03-01 Office [facility] 1.2.840.114 [id number] Univers 14:20:00 14:40:00 Visit Charo SUNG 350.1.13.10 it[place] [phone] Ms dical NAL 059 [facility] 2023-03-01 2023-03-01 Telephone [facility], [facility] 1.2.243.661 [id number] Univers 00:00:00 00:00:00 Charo SUNG 350.1.13.10 [place] [phone] Ms dical NAL 059 [facility] 2023-03-01 2023-03-01 Telephone [facility] 1.2.618.523 [id number] Univers 00:00:00 00:00:00 Qiapercy SUNG 350.1.13.10 [place] [phone] Ms dical NAL 059 [facility] 2023-03-01 2023-03-01 Orders Doctor RACHEAL 1.2.840.114 [id number] Univers 00:00:00 00:00:00 Only Unassigned, NOEMI 350.1.13.10 [facility] 4.2.7.2.686 Aleksandar as [phone] [address] 2023-02-28 2023-02-28 (TEL) STLMLC STLMLC [id number] Co mmon 00:00:00 00:00:00 [facility] 2022-12-11 2022-12-11 (TEL) STLMLC STLMLC [id number] Co mmon 00:00:00 00:00:00 [facility] 2022-12-06 2022-12-06 (TEL) STLMLC STLMLC [id number] Co mmon 00:00:00 00:00:00 [facility] 2022-11-07 2022-11-07 (TEL) STLMLC STLMLC [id number] Co mmon 00:00:00 00:00:00 [facility] 2022-10-17 2022-10-17 OFFICE STLMLC STLMLC [id number] Co mmon 00:00:00 00:00:00 VISIT [facility] LEVEL 4 [facility] 2022-10-08 2022-10-08 (TEL) STLMLC STLMLC [id number] Co mmon 00:00:00 00:00:00 [facility] 2022-09-14 2022-09-14 (TEL) STLMLC STLMLC [id number] Co mmon 00:00:00 00:00:00 [facility] 2022-09-13 2022-09-13 OFFICE STLMLC STLMLC [id number] Co mmon 00:00:00 00:00:00 VISIT Spirit ESTAB PT - [facility] LEVEL 4 [facility] 2022-08-29 2022-08-29 OFFICE STLMLC STLMLC [id number] Co mmon 00:00:00 00:00:00 VISIT EST Spir it PT LEVEL 3 [facility] 2022-08-24 2022-08-24 (TEL) STLMLC STLMLC [id number] Co mmon 00:00:00 00:00:00 [facility] 2022-08-23 2022-08-23 (TEL) STLMLC STLMLC [id number] Co mmon 00:00:00 00:00:00 [facility] 2022-08-21 2022-08-21 OFFICE STLMLC STLMLC [id number] Co mmon 00:00:00 00:00:00 VISIT EST Spir it PT LEVEL 3 [facility] 2022-07-25 2022-07-25 (WEB) STLMLC STLMLC [id number] Co mmon 00:00:00 00:00:00 [facility] 2022-07-24 2022-07-24 OFFICE STLMLC STLMLC [id number] Co mmon 00:00:00 00:00:00 VISIT EST Spir it PT LEVEL 3 [facility] 2022-07-23 2022-07-23 (TEL) STLMLC STLMLC [id number] Co mmon 00:00:00 00:00:00 [facility] 2022-07-10 2022-07-10 (TEL) STLMLC STLMLC [id number] Co mmon 00:00:00 00:00:00 [facility] 2022-06-29 2022-06-29 OFFICE STLMLC STLMLC [id number] Co mmon 00:00:00 00:00:00 VISIT Matthew YA PT - CHI LEVEL 4 [facility] 2022-05-09 2022-05-10 [facility] [id number] [id number] 09:06:00 14:49:00 Encounter , [facility] 2022-05-09 2022-05-10 Outpatient [facility] Surgery [id number] SLE 09:06:00 14:49:00 , [facility] 2022-05-09 2022-05-09 Anesthesia JuanAngeli High [facility] [id number] [facility] 14:25:00 16:30:00 Event José Miguel [facility] 2022-05-09 2022-05-09 Surgery [facility] [id number] 13:12:00 14:47:00 , [facility] 2022-05-09 2022-05-09 Travel [facility] [id number] [facility] 00:00:00 00:00:00 [facility] 2022-05-05 2022-05-08 Hospital ER Karol Kelsey [facility] [id number] [facility] 23:07:00 17:21:00 Encounter Lopez Gil [facility] 2022-05-05 2022-05-08 Inpatient ER [facility] Emergency 20 [id number] SLE 23:07:00 17:21:00 , [facility] 2022-05-05 2022-05-05 Travel [facility] [id number] [facility] 00:00:00 00:00:00 [facility] 2022-05-03 2022-05-03 Outpatient [facility] [id number] SLE 17:05:15 23:59:00 2022-05-03 2022-05-03 [facility] [id number] 15:30:00 23:59:00 Encounter [facility] 2022-05-03 2022-05-03 Travel [facility] [id number] [facility] 00:00:00 00:00:00 [facility] 2022-04-26 2022-04-26 Hospital [facility] [id number] 10:06:33 23:59:00 Encounter , [facility] 2022-04-26 2022-04-26 Outpatient [facility] SLE [id number] SLE 10:06:33 23:59:00 , [facility] 2022-04-25 2022-04-25 [facility] [id number] 00:00:00 00:00:00 Only , [facility] 2022-04-22 2022-04-22 Emergency [facility] [id number] 00:38:00 08:49:00 ro Jennifer [facility] 2022-04-22 2022-04-22 Emergency ER [facility] Emergency 20 [id number] SLEH 00:38:00 08:49:00 CHRISTIANO JENNIFER 2022-04-22 2022-04-22 Travel [facility] [id number] [facility] 00:00:00 00:00:00 [facility] 2022-04-04 2022-04-04 [facility] [id number] Co mmon 00:00:00 00:00:00 VISIT Spirit ESTAB PT - [facility]I LEVEL 4 [facility] 2022-03-30 2022-03-30 (TEL) STLC STLC [id number] Co mmon 00:00:00 00:00:00 Spirit - [facility] 2022-03-26 2022-03-26 OFFICE STLC STLC [id number] Co mmon 00:00:00 00:00:00 VISIT EST Spir it PT LEVEL 3 - [facility] 2022-03-07 2022-03-08 Emergency ER [facility] [id number] 20:32:00 03:47:00 Koffi [facility] 2022-03-07 2022-03-08 Emergency ER KHOZEIN-CAR SLE Emergency 20 [id number] SLEH 20:32:00 03:47:00 INES WALTON 2022-03-07 2022-03-07 Travel [facility] [id number] [facility] 00:00:00 00:00:00 [facility] 2022-02-27 2022-03-01 Hospital [facility] [id number] [id number] 09:44:00 17:45:00 Encounter , [facility] 2022-02-27 2022-03-01 Outpatient [facility] Surgery [id number] SLEH 09:44:00 17:45:00 , [facility] 2022-03-01 2022-03-01 (TEL) [facility] [id number] Co mmon 00:00:00 00:00:00 Spirit - [facility] 2022-02-27 2022-02-27 Anesthesia Trev, [facility] [id number] 11:45:00 15:21:00 Event Neftaly Jimenez [facility] 2022-02-27 2022-02-27 Surgery [facility] [id number] 12:40:00 14:15:00 , [facility] 2022-02-27 2022-02-27 Travel [facility] [id number] [facility] 00:00:00 00:00:00 [facility] 2022-02-26 2022-02-26 Outpatient [facility] SLE [id number] SLEH 15:19:15 23:59:00 2022-02-26 2022-02-26 [facility] [id number] [id number] 13:55:00 23:59:00 Encounter , [facility] 2022-02-26 2022-02-26 Travel [facility] [id number] [facility] 00:00:00 00:00:00 [facility] 2022-02-13 2022-02-13 Outpatient [facility] SLE SLE [id number] SLEH 09:44:02 23:59:00 , [facility] 2022-02-13 2022-02-13 [facility] [id number] 09:30:00 23:59:00 Encounter , [facility] 2022-02-13 2022-02-13 [facility] [id number] [id number] 09:10:30 09:29:00 Encounter , [facility] 2022-02-13 2022-02-13 Outpatient [facility] SLE SLEH [id number] SLEH 09:10:30 09:29:00 , [facility] 2022-02-13 2022-02-13 Outpatient SLE SLE [id number] SLEH 00:00:00 00:00:00 2022-02-13 2022-02-13 Outpatient [facility] SLE [id number] SLEH 00:00:00 00:00:00 , [facility] 2022-02-12 2022-02-12 [facility] [id number] 00:00:00 00:00:00 Only , [facility] 2022-02-07 2022-02-07 (TEL) [facility] [id number] Co mmon 00:00:00 00:00:00 Spirit - [facility] 2022-02-02 2022-02-02 Emergency Michelet Shah [facility] [id number] 21:56:00 23:19:00 [facility] 2022-02-02 2022-02-02 Emergency ER [facility] Emergency 20 [id number] SLE 21:56:00 23:19:00 2022-02-02 2022-02-02 Travel [facility] [id number] [facility] 00:00:00 00:00:00 [facility] 2022-02-02 2022-02-02 OFFICE [facility] [id number] Co mmon 00:00:00 00:00:00 VISIT EST Spir it PT LEVEL 3 - [facility] 2022-02-01 2022-02-01 Emergency Holley Kinney [facility] [id number] 21:23:00 22:55:00 [facility] 2022-02-01 2022-02-01 Emergency ER [facility] Emergency [id number] SLE 21:23:00 22:55:00 2022-02-01 2022-02-01 Travel [facility] [id number] [facility] 00:00:00 00:00:00 [facility] 2022-01-22 2022-01-22 Emergency ER Michleet Shah [facility] [id number] 14:02:00 23:01:00 Jennifer Cassidy [facility] 2022-01-22 2022-01-22 Emergency ER [facility] Emergency 20 [id number] SLE 14:02:00 23:01:00 JENNIFER ALVARADO 2022-01-22 2022-01-22 Travel [facility] [id number] [facility] 00:00:00 00:00:00 [facility] 2022-01-16 2022-01-16 [facility] [id number] Co mmon 00:00:00 00:00:00 VISIT EST Spir it PT LEVEL 3 - [facility] 2022-01-09 2022-01-09 Clinical Septimus, 1.2.840.1 [id number] Methodi 10:25:00 10:25:00 Support James Almeida 62666.1.[address] 3.430.2.7 Hospit a .3.593586 l .8 2022-01-09 2022-01-09 (TEL) STLC STLC [id number] Co mmon 00:00:00 00:00:00 Spirit - [facility] 2022-01-03 2022-01-03 OFFICE STLC STLC [id number] Co mmon 00:00:00 00:00:00 VISIT Spirit ESTAB PT - [facility]I LEVEL 4 [facility] 2022-01-02 2022-01-02 (TEL) STLMLC STLMLC [id number] Co mmon 00:00:00 00:00:00 [facility] 2021-12-19 2021-12-19 Clinical 1.2.840.1 [id number] Methodi 10:25:00 10:25:[address] 3.430.2.7 Hospit a .3.415721 l .8 2021-12-19 2021-12-19 Travel 1.2.840.1 1.2.316.752 [id number] Methodi 00:00:00 00:00:[address] 3.430.2.7 0.2.7.3.698 Ho spita .3.237135 084.8 l .8 2021-12-18 2021-12-18 (TEL) STLMLC STLMLC [id number] Co mmon 00:00:00 00:00:00 [facility] 2021-12-12 2021-12-12 (TEL) STLMLC STLMLC [id number] Co mmon 00:00:00 00:00:00 [facility] 2021-12-07 2021-12-07 (TEL) STLMLC STLMLC [id number] Co mmon 00:00:00 00:00:00 [facility] 2021-10-23 2021-10-23 OFFICE STLMLC STLMLC [id number] Co mmon 00:00:00 00:00:00 VISIT [facility] LEVEL 4 [facility] 2021-08-03 2021-08-03 Outpatient EL SLE SLE [id number] SLEH 00:00:00 00:00:00 2021-06-22 2021-06-22 Outpatient EL SLE SLE [id number] SLEH 00:00:00 00:00:00 2021-06-02 2021-06-02 Emergency [facility] [id number] [id number] 17:34:00 20:42:00 Ebony Sung 350.1.13.10 [place] 4.2.7.2.686 [place] [id number] 2021-06-02 2021-06-02 Emergency [facility] [id number] Univers 17:28:00 17:28:00 EBONY jarquin [facility] 2021-06-02 2021-06-02 Orders Doctor RACHEAL 1.2.840.114 [id number] 00:00:00 00:00:00 Only Unassigned, NOEMI 350.1.13.10 [place] [facility] 4.2.7.2.686 [id number] 2021-01-05 2021-01-05 Outpatient EL SLEH SLEH [id number] SLEH 00:00:00 00:00:00 2021-01-05 2021-01-05 Outpatient SLEH SLEH [id number] SLEH 00:00:00 00:00:00 2020-09-19 2020-09-19 Outpatient EL SLEH SLEH [id number] SLEH 00:00:00 00:00:00 2020-09-19 2020-09-19 Outpatient EL SLEH SLEH [id number] SLEH 00:00:00 00:00:00 2020-09-19 2020-09-19 Outpatient EL SLEH SLEH [id number] SLEH 00:00:00 00:00:00 2020-09-19 2020-09-19 Outpatient EL SLEH SLEH [id number] SLEH 00:00:00 00:00:00 2020-08-12 2020-08-12 Outpatient EL SLEH SLEH [id number] SLEH 00:00:00 00:00:00 2020-08-12 2020-08-12 Outpatient EL SLEH SLEH [id number] SLEH 00:00:00 00:00:00 2020-08-12 2020-08-12 Outpatient EL SLEH SLEH [id number] SLEH 00:00:00 00:00:00 2020-08-12 2020-08-12 Outpatient EL SLEH SLEH [id number] SLEH 00:00:00 00:00:00 2020-08-12 2020-08-12 Outpatient EL SLEH SLEH [id number] SLEH 00:00:00 00:00:00 2020-08-03 2020-08-03 Emergency ER SLE Emergency [id number] SLEH 12:29:00 12:29:00 2020-02-19 2020-02-19 [facility] 1.2.840.114 [id number] 20:56:33 21:37:00 Fabien Sung 350.1.13.10 [place] 4.2.7.2.686 [place] [id number] 082020-02-19 2020-02-19 Emergency X [facility] ERT [id number] Univers 20:46:00 [facility] 2020-02-13 2020-02-13 Emergency [facility] [id number] [id number] 05:38:10 06:52:00 Magdaleneaimee Baudilio Sung 350.1.13.10 [place] 4.2.7.2.686 [place] [id number] [id number] 2020-02-13 2020-02-13 Emergency X [facility] ERT [id number] Univers 05:38:10 05:38:10 KVNG [facility] 2016-08-30 2016-08-30 Outpatient [facility] [id number] eClinic 09:40:00 09:40:00 Surgical Surgical alWo rks [facility] Group Results Test Description Test Time Test Comments Results Result Comments Source MAGNESIUM 2023-05-15 04:40:36 Test Item Value Reference Range Interpretation Comme nts MAGNESIUM (BEAKER) (test code = 627) 2.0 mg/dL 1.6-2.6 Billing Spec LUMA - DAMARIS WBASIC METABOLIC [id number] 04:40:35 Test Item Value Reference Range Interpretation Comments SODIUM (BEAKER) 140 meq/L 136-145 (test code = 381) POTASSIUM 4.2 meq/L 3.5-5.1 (BEAKER) (test code = 379) CHLORIDE (BEAKER) 105 meq/L 98-107 (test code = 382) CO2 (BEAKER) 26 meq/L 22-29 (test code = 355) BLOOD UREA 9 mg/dL 7-21 NITROGEN (BEAKER) (test code = 354) CREATININE 1.26 mg/dL 0.57-1.25 H (BEAKER) (test code = 358) GLUCOSE RANDOM 134 mg/dL 70-105 H (BEAKER) (test code = 652) CALCIUM (BEAKER) 8.5 mg/dL 8.4-10.2 (test code = 697) EGFR (BEAKER) 74 Interpretatio n of eGFR (test code = mL/min/1.73 values Stage De scription 1092) sq m Result G1 Mavis l or high >=90 G2 Mildly decreased 60-89 G3a Mildl y to moderately 45-5 9 G3b Moderately to s everely 30-44 G4 Severl y decreased 15-29 G5 Kidney failure <15Reported eGF R is based on the CKD-EPI 2021 equation that d oes not use a race coefficientEsti mated GFR is not as accur ate as Creatinine Bettie cindy in predicting glom erular filtration rate . Estimated GFR is not appl icable for dialysis patien ts Billing Spec ID - DAMARIS WBASIC METABOLIC [id number] 11:50:54 Test Item Value Reference Range Interpretation Comments SODIUM (BEAKER) 144 meq/L 136-145 (test code = 381) POTASSIUM 3.2 meq/L 3.5-5.1 L Specimen slight ly (BEAKER) (test hemolyzed code = 379) CHLORIDE (BEAKER) 108 meq/L 98-107 H (test code = 382) CO2 (BEAKER) 26 meq/L 22-29 (test code = 355) BLOOD UREA 7 mg/dL 7-21 NITROGEN (BEAKER) (test code = 354) CREATININE 1.13 mg/dL 0.57-1.25 Specimen slight ly (BEAKER) (test hemolyzed code = 358) GLUCOSE RANDOM 213 mg/dL 70-105 H (BEAKER) (test code = 652) CALCIUM (BEAKER) 8.4 mg/dL 8.4-10.2 (test code = 697) EGFR (BEAKER) 85 Interpretatio n of eGFR (test code = mL/min/1.73 values Stage De scription 1092) sq m Result G1 Mavis l or high >=90 G2 Mildly decreased 60-89 G3a Mildl y to moderately 45-5 9 G3b Moderately to s everely 30-44 G4 Sever ly decreased 15-29 G5 Kidney failure <15Repo rted eGFR is based on the CKD-EPI 2021 equation t hat does not use a race coefficientEsti mated GFR is not as accur ate as Creatinine Bettie white in predicting glom erular filtration rate . Estimated GFR is not appl icable for dialysis patien ts [id number] 11:50:53 Test Item Value Reference Range Interpretation Comments MAGNESIUM (BEAKER) (test code = 2.1 mg/dL 1.6-2.6 627) [id number] 11:50:53 Test Item Value Reference Range Interpretation Comments PHOSPHORUS (BEAKER) (test code = 3.2 mg/dL 2.3-4.7 604) XR ABDOMEN 2 VIEWS FLAT AND [id number] 01:42:02 [facility] 1980 Sex: MAbdomen, 1 view.Comparison: None available.Findings: There are no dilated loops of bowel. There are no abnormalcalcifications. 2 right-sided stimulator devices are noted. Surgicalclips are present in the right upper quadrant. The osseous structuresare intact.IMPRESSION:Non-specific bowel gas pattern. Electronically Signed By: Neno Petersen05/13/2023 01:44 CDTWorkstation Name: [id number] METABOLIC [id number] 00:07:52 Test Item Value Reference Range Interpretation Comments TOTAL PROTEIN 7.9 gm/dL 6.0-8.3 (BEAKER) (test code = 770) ALBUMIN (BEAKER) 4.2 g/dL 3.5-5.0 (test code = 1145) ALKALINE 94 U/L 40-150 PHOSPHATASE (BEAKER) (test code = 346) BILIRUBIN TOTAL 0.4 mg/dL 0.2-1.2 (BEAKER) (test code = 377) SODIUM (BEAKER) 138 meq/L 136-145 (test code = 381) POTASSIUM (BEAKER) 4.0 meq/L 3.5-5.1 (test code = 379) CHLORIDE (BEAKER) 106 meq/L 98-107 (test code = 382) CO2 (BEAKER) (test 21 meq/L 22-29 L code = 355) BLOOD UREA 10 mg/dL 7-21 NITROGEN (BEAKER) (test code = 354) CREATININE 1.01 mg/dL 0.57-1.25 (BEAKER) (test code = 358) GLUCOSE RANDOM 134 mg/dL 70-105 H (BEAKER) (test code = 652) CALCIUM (BEAKER) 9.3 mg/dL 8.4-10.2 (test code = 697) AST (SGOT) 19 U/L 5-34 (BEAKER) (test code = 353) ALT (SGPT) 29 U/L 6-55 (BEAKER) (test code = 347) EGFR (BEAKER) 97 Interpretatio n of eGFR (test code = 1092) mL/min/1.[address] age Description sq m Result G1 Mavis l or high >=90 G2 Mildly decreased 60-89 G3a Mildl y to moderately 45-5 9 G3b Moderately to s everely 30-44 G4 Severl y decreased 15-29 G5 Kidney failure <15Reported eGF R is based on the CKD-EPI 2021 equation that d oes not use a race coefficientEsti mated GFR is not as accur ate as Creatinine Bettie white in predicting glom erular filtration rate . Estimated GFR is not appl icable for dialysis patien ts Billing Spec ID - [id number] 00:07:52 Test Item Value Reference Range Interpretation Comments LIPASE (BEAKER) (test code = 749) 9 U/L 8-78 Billing Spec ID - BVCBC W/PLT COUNT & AUTO [id number] 23:57:31 Test Item Value Reference Range Interpretation Comments WHITE BLOOD CELL COUNT (BEAKER) 7.5 K/ L 3.5-10.5 (test code = 775) RED BLOOD CELL COUNT (BEAKER) 5.24 M/ L 4.63-6.08 (test code = 761) HEMOGLOBIN (BEAKER) (test code = 14.2 GM/DL 13.7-17.5 410) HEMATOCRIT (BEAKER) (test code = 44.9 % 40.1-51.0 411) MEAN CORPUSCULAR VOLUME (BEAKER) 86 fL 79-92 (test code = 753) MEAN CORPUSCULAR HEMOGLOBIN 27.1 pg 25.7-32.2 (BEAKER) (test code = 751) MEAN CORPUSCULAR HEMOGLOBIN CONC 31.6 GM/DL 32.3-36.5 L (BEAKER) (test code = 752) RED CELL DISTRIBUTION WIDTH 12.7 % 11.6-14.4 (BEAKER) (test code = 412) PLATELET COUNT (BEAKER) (test 285 K/CU MM 150-450 code = 756) MEAN PLATELET VOLUME (BEAKER) 11.1 fL 9.4-12.4 (test code = 754) NUCLEATED RED BLOOD CELLS 0 /100 WBC 0-0 (BEAKER) (test code = 413) NEUTROPHILS RELATIVE PERCENT 84 % (BEAKER) (test code = 429) LYMPHOCYTES RELATIVE PERCENT 12 % (BEAKER) (test code = 430) MONOCYTES RELATIVE PERCENT 4 % (BEAKER) (test code = 431) EOSINOPHILS RELATIVE PERCENT 0 % (BEAKER) (test code = 432) BASOPHILS RELATIVE PERCENT 0 % (BEAKER) (test code = 437) NEUTROPHILS ABSOLUTE COUNT 6.29 K/ L 1.78-5.38 H (BEAKER) (test code = 670) LYMPHOCYTES ABSOLUTE COUNT 0.93 K/ L 1.32-3.57 L (BEAKER) (test code = 414) MONOCYTES ABSOLUTE COUNT (BEAKER) 0.29 K/ L 0.30-0.82 L (test code = 415) EOSINOPHILS ABSOLUTE COUNT 0.00 K/ L 0.04-0.54 L (BEAKER) (test code = 416) BASOPHILS ABSOLUTE COUNT (BEAKER) 0.01 K/ L 0.01-0.08 (test code = 417) IMMATURE GRANULOCYTES-RELATIVE 0.30 % 0.00-1.00 PERCENT (BEAKER) (test code = 2801) Tissue [id number] 10:30:23 Test Item Value Reference Range Interpretation Comments Case Report (test code Surgical Pathology = 104) Report Case: [id number] Authorizing Provider: Eduardo Calderon MD Collected: 03/13/2023 12:58 PM Ordering Location: [facility] Received: 03/13/2023 01:29 PM SERVICES Pathologist: Alice Sierra MD Specimen: Explant, Hardware for ID. Please save as technical services representative will pick it up. DIAGNOSIS (test code = [id number] 3220) uZzEwMzNcZnRuYmpcdWMxIH tccnRmMVxlcGljMTAyMDVcY R5zwDlvuTb7rDliLCBkjgW0 dBHoJNsix4anDKC7e2quarp oNXFhJKuyBj4ekBMsdRxyId DiTWWyFCl0jC64RIJgmK5na PCfPLk4PBTjhAAijsKaJsOc DOQcbYOwoUZ1MRNpDB2slap rVYvkNQbaRDFujqC4IOOnsD DhK5JyRPGzKD3bbwsjBJI4M ZsiVESfUEC2IsVfQJEul3Yr lbv8DmFzjGFgUVukqXRirqb uksJqDC5DVEmDJHdaTNIKBO IFDQEERBlYKGftK20EBVOZW GtCAEcNRZ7YFIACJWBFKodq SNVEJJ6QXYqnI2BqdTGnIB2 hGl5THMhWS5TIYClWXP6DBS FUC2IXSA7TSN8CVDbazRKiG PHwox91TMB9HlUwd2P9FJG0 BSWgPSUug0zjSNCepFExTkM wMzNcZnRuYmpcdWMxXGRlZm Fxo6ygm474wGQlm2wdMSZtW tO6tUFlNMEsoYRaV026CPEl ZPunc8jmm9VjMLJvwWBal0L 7OGMYaynmlGs1cPncQ24td1 J5QguiJ3znHZFcSPLiU7FcH F2dZWQjAqp4VDM0WIA9ZCJf YAAsP8TsCO3uIJJehNVxCNg 6h8jebLyuBASzCAV7b8wgGK zhqbMgCJ2mht1edUg4j0wgu kZlUDQpWAIztUAIATIoX0Qi zDwwCc8nsUb5bAkqVzawQYX 1Epc7BW0fgo98uoo3lYrcSS ZekcfuEzZ4SXuaUPDozeemB Pg5XWovWQGwjFZ1QEUvrIFc K7ImMHQxQJ2jylw9KUV0KPh dKOTqGnA0KJDzqCOyDGWzmA gySQwrs952QHD7CxOxOO3hD 5Ufe6Y1oR3afSNwNLKzhAHw NwNvVNJswb8swTLkYEdiu9T zESM6ieV9nRKnyKKcCYIcLr D2USumAD3cot77JDDnHHH4j y8cgVMysKbomjDgkLGoPGru M6LeCDIdz428RUMbB3HiLCQ ir0O9wjOkZrEuZVAmcEP3vf Z2ZJHbYY0zawquy8ubDMohE TggVBTzflS2saT8KOFtaFAy I3QkzX4jCDCjEE5qfecjx1o hDTX8UVrcBTWvHPE2OgBgKA Emj7Cboma0YnKil7NisILyU YjyY74ph366HXHlkbYfJ4wi bGFpblxwbGFpblxmMFxmczI 3JVUvOAqcpepdYIFlLQnnY0 zyMyOfEWIctZtoPDtbt7ByD GYxXGZzMjJcdGFiXHRhYlx0 ECCzkMKyQCWjKqJpR6jauov bTfFBAWNog6grB8fgxDQNvO UfL9VwSNiypeQpVYwzQPjdB lZzKSn2JF17UyHjLQTumb06 CPT Code(s) (test code q9dulEGnLUJquWDlITWnQZr = 3357) eruMfQKSagAAlK5XpakayWF omTM1hWI8nkAuhyAEytKVnZ VCtDiSmc1cgl913yIKmz1ag UAFAulltzQc2bSvtQ64mz3Q 9TytsS68cgILdJVM9BHZtKA BcaTXtCZJyBMF8XVPtgAWzT 4drRAYuKT4ddjeqVHxwVKie LSOuaEV0CUDzlQAtK8PbNNV fFYldUIWoavn2IhInPv9mlD VyeTcyMFxwYXJkXHBsYWluX GZzMjAgODgzMDBccGFyfQ== CLINICAL HISTORY (test u4hgeAKjKMTykIYsSOXaFAd code = 3356) nioSkCELanWJiW9TfgmasDJ sjCN0nKY7byEvwcDDbdXVgT HMvSvOpu6crk976zTRmu1rx WITMganmoVu1bXnsD59ti5Y 7CureR2izBPDrZPhrDPDbCE erkRCnWHb8TSRxuBHctoUzG tGgOTNmaWPlnOH2HORaJO5w vtawGSouCVmsYYJlfqY2CGR vfRMsA7NxRLQgON0yoycoLH K9CRzvBZQwLNG6UyDgCLTfq 7Abqnn3HkFaqKSxELvqxRLb mBndbW4yDzMtPTsiQjEbU9r ed37sNkIzGPouLWD1hdAzx2 2sSJtzqD2jUCXriQAedvraP M3hOH4eNIkxZaWcn3Gss1Qh yyOrJDSjkiHru2NcuMCkEKQ vclxwYXJ9 SPECIMEN SOURCE (test r5otkGGnGPSoqKZhNCIuVKy code = 3935) ffcKnTGOlpGBuH1KdtwviZO gxLJ3gNB1yhMrrbGTkmGIwO CFhXmKco9hwj224cJHej9bn LDFTcinvtYw8tNbdH88tt7E 7ThhxP16gcWHlQWD1LSMnGF JcjZLuMWIvWMR6ZUNiaVRpQ 7abDEPwSB2yoxfsJXetMDrn KZFshHN9KRZnlSIjX5XmDAL bXCgyEZEaskx2RaTvQp0hkI VyeTcyMFxwYXJkXHBsYWluX GZzMjAgSGFyZHdhcmVccGFy fQ== GROSS DESCRIPTION s4cgcKSaDJCbyKXAYUZnJQM (test code = sSD9xxWatoQe3yZpdDKXrot [id number]) Y6sERnTUrzj5krWXB6m3jpl jDOYollPBXnSQ3zYOugYJSw YR0rWuZsTMReNoVoCGXhyVD blbBmHrGpGSTfnUJmsGQ6UD OiZK0rqywsCRttMCyxYKXpb cU7KKCxoIHnE1PaGDBzKX9k rvayHKT9PCCPPedpXx4jdFZ ibHtcZjFcZmNoYXJzZXQwXG GbmWpkWYCoNYs5sN8XXzupE LE7NCGHFyayBniybPgek9Wi dCBcXHNnIFxcaWQgNTEwMDA wSPbxUgCGPxEkFcP6ExN7WD M7DvP7CRe0DHUTSXNjEVK2N NN9EHO0YMn2CFJmTR1dSSmy uBFgPYicIxfgIKnkR613DZp dQQAbL6OzW6VhEIdrFvEoPK dwTMEsRAEkQRldUSAhZ3QVC VIsWZIpBjt6VyQzIPy3ZEjg W5BJNOSsFTOkESB6JJVmYyP 4QZw1VKQTFb0bTaR2Yyz0DU D9IFA3KHD2NRjqxNByUAzls 6MtByUxITBqOPbppqI8VGNl zhBdKKkacVkbhC4mNnQeWmK TVjACaHQzKF90WOTdawBREf qdIOVxMX3RQSDiITwuEIQtI kSjrNWwD4xsJHUhV76rv8UG b8QbUJ8QAMw0jvRjxgsqyT9 wXHJpbjAgDQpcZnMyMCBSZW NlaXZlZCBmcmVzaCBsYWJlb GVkIHdpdGggdGhlIHBhdGll ouGsenKgLV4oQXNuO8Gas0Z ij62edhCiBbQoSPAcLPAirE OfZTamauTwSQpiPNEyDX64E DyxWZ62XHskKP25PCYqIO3w dOCheNaiFSmqIZrcg5RuasD qYKUlnrUjf9GqaWOrDPYmnk GeALR1CKL2DQJtBYFuINzcn ErfgPTjvZkpKDHuePhjq7wz ZyBpbnNjcmlwdGlvbjpccGF uIT0XKYOdfkPBTe8wOZAlr5 9rI3ikYSFhWKzBirKluWnyk 6mjHIZdYCzMkEEzTDWoUHZ2 kILzZ0ZesMtaEQEiISdQDb3 NUCi2ZxAtGTnjoHJoGJ7BVF TygkZBAvVnK6Pxr1TowFknf Z1ojiMufJSywbA9KHhman6l ZC9jFVYbV4Qbx42iKTAaOGJ nsMZalYY6DIAtKRQUrTygCY Rln0YruTJeSr8lWMnyx1DhX BX1PN5cfwF7jV0aEF4sxCpz IURvetCIDgetHVEeMNsfo1E zMFxlcGljWHNhMzAgDQpQaW atzeCMhhz4FHnqQNWbBDRJN CBIVCAoQVNDUCkNClxlcGlj VnEyfZKjGtF3LSJedEJwKOJ 8HH8svHleBBChK5QbT5Fclh R4OSQzwmZSEtorJCRbAY5XQ GZzMjIgDQp9 MICROSCOPIC c9cysZVlTWCkaBKpQALeFPs DESCRIPTION (test code udgScJRAhdFRuM7XnzqswZG = 3371) evWF4zXW7xjOrpePYnxDQxT KNvLpPma9sou690lXOpx7dv VVPNbzfyrFw6gBncH03va4Y 8NvcrV50dgBHrRQP8KOThZQ XlnFEtSXZzFOA0CBFdtAPkX 6qyXPGwXG3thuxzXSbcPRsk UDKpmQV8FEHiyDVnK7WkKHM rTBqcEKGnmle4GlKfKr7yzR VyeTcyMFxwYXJkXHBsYWluX CXfVyBoHy19BFSkojWphg6o ZFxwYXJ9 Gross assessment was [facility]. [place] performed at ([facility], code = 2777) Department of Pathology, [address] [place] [address], Professional component [facility] was performed at ([facility], code = 2779) Department of Pathology, [address] [place] [address], [facility] [id number] 10:30:23 Test Item Value Reference Range Interpretation Comments Case Report (test code Surgical Pathology = 104) Report Case: [id number] Authorizing Provider: Eduardo Calderon MD Collected: 03/13/2023 12:58 PM Ordering Location: [facility] Received: 03/13/2023 01:29 PM SERVICES Pathologist: Alice Sierra MD Specimen: Explant, Hardware for ID. Please save as technical services representative will pick it up. DIAGNOSIS (test code = f1emnSLfGAOaq0otMPOzzEJ 3220) uZzEwMzNcZnRuYmpcdWMxIH tccnRmMVxlcGljMTAyMDVcY D2jaVhuwEi5nUjnRYSqqnI1 aXAoEGmxd6ukZLY1k6lhxxt yGPTjLGfxMt8rwFYgnMciJq DrCWUdZTe2jI91ZPXxpH1ub WPcZGh4IZWorBWlupUiPwOc LVMyyKQbjZL0PSDmYY6yifx mVNjmNNgxHJIwmsH7HQMxpE SfP8YkIMBxKW6uhyyaEVH7D ItzDZEcCWR6WhBeQNGdg9Qh diu2IhGfmSXdHOqzdZUhevq mpkUlDC5QBRaWEYlfHGOWHF LZFIVJMKqYDTyiJ65OZSJLT RbQSQzJTB8QRKLZKGAPXmnq UHSOCQ1YJUbfC6UdqOYmCH2 nAb7XYDzDL4HKUYkOGA2SBO YQS4NMZX1APJ1KTUnyyDSiZ XEvmp90UDA7VwMax7P2WDZ5 ZQCeXRLeg9maMSLlzFJbWhU wMzNcZnRuYmpcdWMxXGRlZm Jcj2jxm966qHKbj3dbGYJcX yW5bVUjVJOdsQHgA261QKSk ZCbdz1sfe5KcHAXxrJJdz4Y 1YANZbrwlwGb6vCueI06uk9 J2TjrbA3cuAUWhPLIpB5DdW U9mNCZyQnq9VBQ0PJJ9BFFz ULVoY7QhLV6dBQJxjPEjTIc 4p9bsoWnfBMHdBCT5f0xdKA sflmUvIS3gbj9knJq3w2qsu lVcGRCnCXRsjXXWWALnF4Hk tApkQl2axQy1mFowKvyyXXC 9Whp9PI5bdy57qpy8pIvsZN AqkgurTlM0CInyRFAgbhdnQ El5DJuwUXSjtQU8GTLzsPCt I8UpLLGdBH1upra2MAG2VJo eZRYfYuN4IHRtsUMvZPEqdF yiSShso456GIA5RvXqFL8jR 8Hzk2O8xG9hhFNnHCYnlODx WqKoOPKifg1xdHWoVRjrf5L iLZV4tqB5yWNhpHYnTOVpHy H8ECiyGO3sku07FBEhRTZ0e c4vyIHzxWpyttCuiAWcGQll U0NuKHQhp675BISuF9BvATR ap7A1diQpVnAlHOQbnFH5tm E4FSIiAB5ufjgbp2zyDQapY RxuJQSxulT4lsN6VAYqfRDs N2WvfS1aRSLiXO3mwbzql3v kXWH2YNdnULRtIMU8MuVaQA Yho0Dyukw5PbWcc5YzkDLaI QvaT13gx862SSPukpDqS2bm bGFpblxwbGFpblxmMFxmczI 1JIVkRGyujxocGNLmFZdaB9 cmAdRbLXWivXmmEPron1CiI GYxXGZzMjJcdGFiXHRhYlx0 WLQxoCFlKQAjGrDwO4hlffl nCzXQDZJti6dwB2seqVEIwZ JiQ2YuKMhyrqIqMJcvEGdnK gXuIGr6AP96ZkYsKMCraq55 CPT Code(s) (test code z9jweGAoTUJuxJFaOVHrVLi = 3357) kujBsAKWxfUJmR6BphzchFB ezSJ5cAM9jtVrwoTZtkOKfR CXhBkUat0bib796sLZib9lt XSGDpuobjGn5hBmaL39xe5A 4PjdvH53nuYZuPKM1FERbYY RnsRXaNGTsOIM5XSMmeVRnV 6snALKuVN8dxotoVDavCEpt VWOonYB5KXRulJQyF8AwNXC hFJvnYSPokzc2OcSmMj1zxJ VyeTcyMFxwYXJkXHBsYWluX GZzMjAgODgzMDBccGFyfQ== CLINICAL HISTORY (test a6sdxUCaEUBgqXTwZBAoIPk code = 3356) gvwZoSKKdeVAeW3YckqjrYT ohPO1jPM4loUepkBTnxIViG XSfIdKvh1jao647vCJti6gh AMBOedlfiQv1kIwyK68nu0P 1WcqnG0fuBZWbSObfFMHzVZ xlrZQaFLb5CQZcwVMnyrJuS lGlWCPwyUNogRF0XSHqMV9h sscqJVecCAoiNRZhohT7DGP ovMEfG3NpYGZoRJ2lxjkrXU T5ECezUTAhSXB0IpGpQFBun 9Zrofu2ReLwcYLiKQfbtVKh eQsfuV7mPmQtZPagJkMgP8z wm84pBcUqGTlzACY7tvYic0 8gDEvyeS7vNBQdyHKywvwpN Y6tLC6gHOhhOcRfk5Yer2Sy piAhMTRnnsFib9QbrKSgQDS vclxwYXJ9 SPECIMEN SOURCE (test x1keqUCmLMNerDIkJWFiGLu code = 1087) szhIcOQLlcNUzR9ZguxwzPD tnXW6rYA9zqEfluTLuyUWpK EXfGhDfe4msq052uJJaf2rb AOHMqozloKj7lWzbO74tl2A 3AnxnK78vsNGxMGD1ROUbPK WxtTLsWJMyKRL2SADmtFJlU 7otNMKlDV5ipxbsXCagQHai IUXnkPN5CYHeoOGvP6OvEAA dYUroAAPnxxx7CuEnBq8boR VyeTcyMFxwYXJkXHBsYWluX GZzMjAgSGFyZHdhcmVccGFy fQ== GROSS DESCRIPTION n3hlpPYyRBNmwDMCNFVeKEM (test code = zXM1wxFsbwTz8yOzzKOLlfz [id number]) G5sVEaKCubg9siNXF7i8vka zKURamjLSOnUK1bZYszWZTs KG5cJrPuUBYaZyGoCTIagRX broQkTiEgIPNicUJdeGG9QL SoRU7swwfsILtjSYawWQMqa iE6ZVBpgFKpO4MkZFLoLO7m ueynYQI9OPBQAjlmLd1pgQD ibHtcZjFcZmNoYXJzZXQwXG XxiLpkKVZiZUl3rW8HQylzJ WI3XNACMewcRusabEnsi2Cy dCBcXHNnIFxcaWQgNTEwMDA xSPmgAlSEAtCdUcR6AgG1ML Q9OjH7QEv7BOYJUDSnOOV4X QY2KFE9KXx4XBQsRZ8aQFqv tBOyLMitYgkiKPtaJ545CIl sOFSfK0OsZ4DiYRfbZdGbVC grLTXePCYdIQtoQIAbK1YWU IBfGRRbUqd7GlUmEQp2ZHju E9EFWRQlDKObTWF5EGViVhI 5HGl6KQOREl6rXfT0Avi9WW C8IMO0JND0NVszdOIjICwxw 9CdRdQkMBToFCuxylH4PLKd ajInRTnsnSugkI9xOwKbJdK CEvLNxJJhJH19TDYmpyLQQq vvWWIiZN2DNGPaLMnjCYEsQ oHaoWHdF0hlUJIeV93gu7XP e2ZkES6ALEt5eiFmucsqbI7 wXHJpbjAgDQpcZnMyMCBSZW NlaXZlZCBmcmVzaCBsYWJlb GVkIHdpdGggdGhlIHBhdGll okFlgkLmAZ6aHMWvS4Pbz0O et45ckiFgQpYjOSOvRRLjgT AhGMhrcaRkRBqaMLBrCB74K ZrxOF98OQzbJX37WVRyMH8h jCExfZlzKXcgEIyee6WbllD sVNTsvbBti4NrnASeEMBnwi CxLMD9PRG8DBIuIWKwIKbpr WgryFYpcQsxOKLuxEocj5qz ZyBpbnNjcmlwdGlvbjpccGF pJG7WFZLuabNUUw8wLEFkn2 9fL1trNUSdDQkZvcGkbMtsm 7goCPXjIEvQtQYrLTJzKUS6 fQYyE7ZcsFomAPOaNEdOBl5 VWDm1NuMzLFdmpSDaCZ1QKH EjemSWOdFnS5Opw3UbgMkrw X7tbaVrbRWzsxV8ZHauxq6v EZ2xCCRvK9Fbi89oENRuQJH vxCAnsVZ7XIFgDEUVbIvvRT Gab8ZojEXaGk4aIPczi7UzE ET9WF7tebR5hW6nZQ1szPqs UTJgfxYHYyrhZOXgPYacd4V zMFxlcGljWHNhMzAgDQpQaW bearWGswh4TCnmZUIsRVLGD CBIVCAoQVNDUCkNClxlcGlj ZrXlvIYhGhS0GNSghBFhFXI 7RH7cpZmqUCEoA0JnJ1Woke A4VRSrmsEXUkcjILWiWQ3NK GZzMjIgDQp9 MICROSCOPIC d1fjrIScPIDgaZCtWDGkTWt DESCRIPTION (test code fvpUaGKFovKTiC7DzmwjpXN = 3371) deNK0tKX3zeTenrBEvrYSrO RFbUkLkj7wfi876nYIrx3br HYPFturfvJi8jXlhN15pv6N 9BovpT90ycQCqZOS4NSZzLT XbzIAjTJRhWYA2IUOmlSSyC 0fuQKQdBH7zmxyiPJxeLEmh QPHlmNY3ZLWcwZYuL3YhSCS qPZyqPQOtujs8ZsJaOx1xgX VyeTcyMFxwYXJkXHBsYWluX HUeEpWrSh76ZWGexrNcqd7r ZFxwYXJ9 Gross assessment was [facility]. [place] performed at ([facility], code = 2777) Department of Pathology, [address] [place] [address], Professional component [facility] was performed at ([facility], code = 2779) Department of Pathology, [address] [place] [address], [facility] [id number] 10:30:23 Test Item Value Reference Range Interpretation Comments Case Report (test code Surgical Pathology = 104) Report Case: [id number] Authorizing Provider: Eduardo Calderon MD Collected: 03/13/2023 12:58 PM Ordering Location: [facility] Received: 03/13/2023 01:29 PM SERVICES Pathologist: Alice Sierra MD Specimen: Explant, Hardware for ID. Please save as technical services representative will pick it up. DIAGNOSIS (test code = h7eoxICvCLDcu4ehMILtuRB 3220) uZzEwMzNcZnRuYmpcdWMxIH tccnRmMVxlcGljMTAyMDVcY H4ksDduqRd1aNqzAYXxiyS7 tQEoSYewg0zaGQQ4l0dudqn wBLXrOKbwNw7bgOEzdWxrEk DuXXKoRHi6oC93WDSteE5gc JJaBFy6PKYgoDLbpcAfKsDx FRDhtWGdwFO3PRDqCJ5kyvt tVOobSWviPKPaxdA7XJShmU SuO2QwFYTbYZ1eywduFYI9M WhaOLKkZON4GpPqTFFft4El qvg1AjNuxZNrWNolrOPhxbu brtEwMY0PJBqOALjaMRYKJL QNQLBKKDwWQTfxY79HZZIBE NiZUZeHYG3NDGJRRECUKqjx NZUBBU1BNPxaB5FfmFEdDW9 tSw8OCXiGK1LTPTeIRY0LSC KNY4NSVW7UNQ7VWOpprWLgZ CIixd33BAI9KzXhf4Q7UJY7 XIRiXBPme2hiZWKulGObJzI wMzNcZnRuYmpcdWMxXGRlZm Oyj2fex904lXSit4qiUOVmF vS9tDHhBONmwWQeU821LCHa XFtrc7wpt3QmGWKspXCtf0C 7YYDFqppmvKz7tLzeZ21sd8 A9VtapQ3niBYAcACOwQ7OmR S4iVYIhCwp3AMR3YHA5TINr WWDbU6VlQA2tLCCooYVhEMz 0i8pkiNafFGWhZGP2m3paQP iyeaZjJU4xgf5qoHx2v6pno mVxLJJfRZRwrJPETKGjH5Ic jKsnHk0fnOz1oIzuOssqXPR 4Hbk7XB5wfc98sfu1vAltCH MsjumnZkX2VUqcPMBmfqjnB De3GJniLEFhbSO2MDChhWRw Y4DbTZEaYH5fosa8TSD0HWk pYRHoJpC9MRFoaLKpGAKiaD apHUqlj424DBR5GnWhSH2lC 3Nrn4A1rF6ebQTuQCGcuTZw SlXoMQKrbw2mlVLaECwrr3H gUNG0knS0jCGvcTGkFZBeTt Y4VNhzLM4pcl36KMAkDWO4p l9plWSlnZnvkiPxnRHvWQwc G2XdYNHqx010PTJhB7SkPBX aj0Q7wcLnWuWbSPNfbDF6pr E5SVFvOX8bkpphe4ziPJybU YqdSBJqueP2wdD7ENUnyOFk Y7XugN8jANIyVW1ivfgxo8o yAYN4ZJvsTGNiQWJ6EwYtMF Lio8Kufzj9YjLas3OgkCKkR OiyB35vi623CJQywhXaR6li bGFpblxwbGFpblxmMFxmczI 6MAGlMQkopykpVOVmXZfkP7 lkEtFiKWWomQfcQQgmd1WeK GYxXGZzMjJcdGFiXHRhYlx0 BNVduYKaLAWzZsNwY8qqebg pCwAQRUNed9hxD3gsjNVTaC AoK2YtKQdcfjWiOYjxVPfzP zQsSHq1PX49XoLaWJJgxz49 CPT Code(s) (test code n2fvzPKeDSJfeYTbDRMbJBl = 3357) pqmAsRFIohZVkM1ZdqhpiJT bwLL3cPX9aiTmdpNUidFThB HCkVvHbm6bxz175qQOll2km YXOOwzcndEj9mKanY86cs9L 9DcocT19nbXXwSGC7QIErBX PznTGsDWEgHMK1OLLxuHVtU 6csGQOwOS6afjgiGTicBWjt WHQrgUZ3AGWenNPxY9IpPSQ oQBnkSYLnwzx3EyKrNa5jtS VyeTcyMFxwYXJkXHBsYWluX GZzMjAgODgzMDBccGFyfQ== CLINICAL HISTORY (test m2aswQBkGGKmlUMpPOGyBUv code = 3356) uagGiGSSuaEDeP6IfkbtnKG rvNK7iKQ6ayTjoyFHciMHjF IMfAuZha2vtq545bVJqx3mn QJZNyraxuPi1yRvjK44fi3Z 1EozcX2yiWXLkPQtnTMZvQK dpfBEcZIr6PDHdtMWolxKfS qQvRLFrxWBlcBB2GVHjIW7u nvrzDKbuVXquYDRvhrN6DJL dsJQaF1QjONMwJZ9rltsdWQ X5EXodAIWoZPT6YmUjNJCjy 1Woumc9DtQkmXNbKWnyfAHo wIrslQ3lVaAtSLjdOmThS0n cz99vSsHxXJuzCLX6luCta5 4rDZzodK0xWWVgjJWzqckkH L0qSB6sODosEvPda6Tkx8Rw rwWdNMWldfXpd9ZshKVbEUZ vclxwYXJ9 SPECIMEN SOURCE (test s9ihgXKuPIXbhWGqJQHiUJc code = 3377) bqfOcOJKjfJVnZ9SnxrkeGR uyUX7iER5zlHvtlDZddADwY HAmUlQfd6mll178hGUlc2va YJHFuanzwZo6tMepM49va8C 3BqhhG52saBJlAUT1DLIrYG OhoHQhTUAvHDI8ESZwqZEoE 2txXMFtEI7qhonvXCqtQRlt WDFoyKP8XLOztMTuS1DiXVK kCLwbYBTuowc2XcCbEk0mkB VyeTcyMFxwYXJkXHBsYWluX GZzMjAgSGFyZHdhcmVccGFy fQ== GROSS DESCRIPTION p6xibVQxUAEjnRIRBFPmHWC (test code = nZP1ufCfzcDg3pGriSKKnyo [id number]) D2dXHbEKvoq8jnDIU1s0jja aLJLtrvHBTwTT8fURzpYYBb MI2hGkQnZWHwTxSnJQAxqBP uplAwBjYzSQUlcLPqvTY5BB KcWE3lcpxbXSoyOZqgYPMal aK6DWZxuBWwI9VkNXUcUF4a zikuRRG2STNLCetjQv1kvRY ibHtcZjFcZmNoYXJzZXQwXG JntZhoJZAhQVw8wN0NBouiD SB4JIUGZmrnHocbhXieb1Dx dCBcXHNnIFxcaWQgNTEwMDA uGSmrFwVLFiOlEnN7VnL6XK X6IlE7CCi4BOZVCZPqAJN8K LC5YTF2EJg4LGCoJK6eGPbr pKPbCPfpUwjjTXfyO798EMz gQMEeD3YjZ3PmXLdhNmKyOU kkVZNoUIXjGAzxDXPcH7FQA PEdKHVgFvh9TbEnESi6IFab W4HUFWFiYPBdNBN9TFYzMdN 1EDc9CXJQGt9yGlF8Vpb4ER C7JCT1MJN6WYzlvHBiHKnzk 8VpUfZfXQBxKXzrqxF2RKYj nbDqTXolyMmrsT2xIqRgMjT SPeHXaXAhXV34RODfjkHBCa wbAQIaOU4KZNSxMNdhNQWnI dCgqUNoO1olMEDuA53rr0HO i1UzWF9RTZa1kcWnoxhacD0 wXHJpbjAgDQpcZnMyMCBSZW NlaXZlZCBmcmVzaCBsYWJlb GVkIHdpdGggdGhlIHBhdGll deYbkvMsCY7dTBMcM4Qty3R bh61csmUoBdVoLIJwPQPnvR UjTDgtomBaMDtvLBBtME42Y TthEB10CZyePQ42SRRlFN4q eOQfzEuxATkfQZqbp0LavjI kAQReypEcd6KanTTeANPhfe LlIVA4ZTC2SRGaWJHmXNmjs LmwgBBnhTepZUVvwRava2hm ZyBpbnNjcmlwdGlvbjpccGF bUS4IABKtttRXXg1qYXVfp7 6tL4jmQBDsNNfIxmLvqBvuo 4mdHKLqJEuPeFGuYLGlVJZ0 qHIgY1IwyDexLGKhUIsPXr0 ZBTo0YiYlCTabdFQpXU5NCV YowhLXYyZlP0Zpq5QewSxwg K4wpfNvpIAtneS9AQtyjf8k EM2cMKNcI6Kip14pLZUvARE hvBRtkJR4UXNvGLIQdYjhBY Gel1JfcERmKv3lKJwvr9TsO YL7UT0fapP3qX6oHQ4ssTuw TRXcnmKSTnfoIKWxWTlaj6I zMFxlcGljWHNhMzAgDQpQaW ksoqQNggi4JAguLLAsZKXFF CBIVCAoQVNDUCkNClxlcGlj WyNvvRGbAjQ4GRLczNYyRBO 5MM5ceDvsYWLcK5ZfJ3Jmhi N5RJCoicHVKgqiOYTdEH8HW GZzMjIgDQp9 MICROSCOPIC y2exsCTvRMWlwTGjNONhNMt DESCRIPTION (test code atuMzJQDqoDYgL9VaqbjoJF = 3371) ksUZ6oMR8bkXaheDGnnDTrY KUyKaWyf4glt116nUYns9uz EBQEqyfwvBw1fRobR77aa1L 7ZibtH35voBCyGHE2SCGhIH HtsFErHWCoAYJ9BIKauUHoZ 7fbAASaLM2skddqRGtbUJmi BBXtzQO0YQBvjWDgF3AqUBF eJEfaUMYvjik4GcVuHo7cmY VyeTcyMFxwYXJkXHBsYWluX QDwYqFpOs06ROWhkxUqxm2g ZFxwYXJ9 Gross assessment was [facility]'s performed at ([facility], code = 2777) Department of Pathology, [address] [place] [address], [place] [address], Professional component [facility]'s was performed at ([facility], code = 2779) Department of Pathology, [address] [facility], [place] [address], [facility] [id number] 10:30:23 Test Item Value Reference Range Interpretation Comments Case Report (test code Surgical Pathology = 104) Report Case: [id number] Authorizing Provider: Eduardo Calderon MD Collected: 03/13/2023 12:58 PM Ordering Location: [facility] Received: 03/13/2023 01:29 PM SERVICES Pathologist: Alice Sierra MD Specimen: Explant, Hardware for ID. Please save as technical services representative will pick it up. DIAGNOSIS (test code = [id number] 3220) uZzEwMzNcZnRuYmpcdWMxIH tccnRmMVxlcGljMTAyMDVcY K6ooGzblMx9xSveXKBaebF2 yJCzLMsoo5tpVHX5j6uekkn nYRZpOQuwAf0skQEffYsbYz RxLWUjTQm3wW61EHOtcH7lo JMwCUl0EUNjhJTvdeQpFtMh KJGwsQBztDD0IHNcQG6szpn xUJjmLNueCPEojiT3QAHnzI ShI5RwYBZrFI3dtudwMHK8I AzrWVLkOHK8ZfElNHXmg1Mp zdy4QzSxpUYeQLfcgPIlamz lhwXvGX5IHQuPYJlkVOVEBZ UFNFPVIFrFPDwfE43JBTOIU NpMZFrNUD7MYQNTFEHYUozm QLVMTZ3CRQbgH8CgpHCzHJ8 rMc0OKVxZI0GNJWcKKZ8JGX RXB6MJGY5XKQ9WTJojmYWaD JVudj27FXO3XgTtn4L9XQB4 WHIdWDKiw6mpQQCohNPqJsG wMzNcZnRuYmpcdWMxXGRlZm Ehy1lgy475sRFta3bcUADdA uJ7qRAaSUJzqOMxX206HTDk QMpzv5tsl9SqMWNxmGSlb6Q 5YQWXthmcyYm0gYvnL23ym9 A4PesrG1nzXYOvNJGbX1KtQ Q3yWRKoVzi0PFN1KCQ7UBHk OEDzJ5JmQJ6mTYNneXPiAEj 2r3xvuHmdLGOnMVP4x5yiMK icznVfDT7vtj3thPm4y2vwo uSsNTKgBBMbfURWBBHkS7Lp kMrlEu2siLr9cTugHworXRF 2Bwr4MU5spd19xue6hVsvZT IpyehaIcO7GVlkDWWshqqkC Wu6BIqhQOXcqUG7TSOvjDOn O2ZjAZWxFT9vrnz7UTG8XCj nJZKmYlX8ZFHlnRFpKUAjzB qgDQdsl092OGJ6UsEpSA5bR 3Bes0G0pY5icOSgAGDrwBMc OnYuBEBtfv7xqVPzAEiph0V qUGT3luE0fFQwzMVbHZVkIl Y6ISjmTF1fov93KQYwOVU7n i1tkFCqvHlsgqIgcDAiKTpl N5YgFELcl411TYOoK9YyMPK nf4J9hbSfRiWyIDZsiYA3ug I6KCIrTG5pajkxd2abBFioX UobOOVovlB8veT0YVRgvCZf J6FybR4cQBMkFK6vhgomm9t tXAX0PBssSQScFCB6FkGsBM Xzy8Davws5AqRpx8GljKGaU PszZ12xu000YZGtelYpC1nn bGFpblxwbGFpblxmMFxmczI 8BDBnZYkbrephBCYgVZuwC9 txPsZjXKYbwVwbGRikd7BtP GYxXGZzMjJcdGFiXHRhYlx0 YVRijKZiLLMqQxXfW6ynbih vUzJPZYZfc2beY4pekBBEtK CtT2JqSPfulfNpBByqSPyiN bObVGw6VL36FtAlDJWayg62 CPT Code(s) (test code e6vgnZZvEDFmwBRwDVTsMMq = 3357) pmuEaBSTvdUTlD8IzjdpvVM nwMI3nKO3meGjrmWXmrWSwF TWmCyAdk5xfm295bEXai7zq KKBYjlrriKx3cGstT18rh5P 3XmshD00hjGGbOKG5MNTcZJ VpzKTeZRRkKME4ZIBicRHcS 3xxZTUsFN2zcejtWVheULyy NUWikIS4OSVbdTPwX6BgIAH fUIyoNRAvdqw3UlPaVh6klB VyeTcyMFxwYXJkXHBsYWluX GZzMjAgODgzMDBccGFyfQ== CLINICAL HISTORY (test t0yxeQFwFODxaTOgJIHgRCh code = 3356) tivIpWEVnpASeH4ZfskhkHH qgLO7pBD4jgScwaNZraBUbB WTsBmZdn8ecb329jPBuy6ru DVSDovzbuBm5gRybV30hg6V 2AjlcA6uwCDMuNUgxYIDrOV lzuLGxAOf6WWItpSSlbeFuZ aCxXRCwiKKaoRV1XIJpGE8d mqzwGWyyBPhkVREwneV2TVD kvXGmH2AlXEIxVN7jyeutBS B8RHglILOrAZF8VeWdQPIok 8Rfpbb5RzXznKUuUDfrtLKs gHmvnN3uNyGhCCsiWsTjS4a gc26qZlRvEQzcIHS1cqCiq5 3tXKyimW0mSUTpnPFtunvfL O4vVD6hKDnwZoIuh9Dvh5Jz raJqHGLpbvQqz3NqiHCpZVD vclxwYXJ9 SPECIMEN SOURCE (test b1vlgYPfMCVwgEKjYLFrTVn code = 3377) rnnAfWYJpeTVgD9SpcntrTF xvEB2rHO7srWdmtGMtxWPyN ZCwFfSzg2gqp480wTDly3nc VTYPezbgvYp0gKzyG93ce3A 3TqdxH36khYZgOHK6OCJiYS KidTNgDDMcSOJ1JHDhyRDvR 3qyJSOoYW8irsypXDlkGZyd FFPyaXL4EXCsnMArM8GlROW qZMglHVDztxh0RrGlLy0mbX VyeTcyMFxwYXJkXHBsYWluX GZzMjAgSGFyZHdhcmVccGFy fQ== GROSS DESCRIPTION e0sgpYRxLOLdkSRTZNWwWJE (test code = qSS6goTispRl1nOhzOYJgun [id number]) I1lDGlTAbxf0lnXDF9r1aid tZHBuceOEZnEK2uCHdxNGTy XT8pRwUxCMPfRiRqGBGwbZJ ddcZoPlBqRGQzfMKkvKD2RB HeVZ7yvjvvEGoiGZrxTJKzc dT3FIDksOWqP1ShGJYjRY7q yddqHYL0QWYLTyzxNz7pcGQ ibHtcZjFcZmNoYXJzZXQwXG EjqHosNUWaYGf9vP5EBxmcW CM9GYRSUxizEbqncJcxm5Im dCBcXHNnIFxcaWQgNTEwMDA oRKrfWsSAEhZbCvD0AvK8SD L1YpN8QIf4PTCGRWTlYAV4F ZL4GPW1JHm1VWJvJR8fANxp hCNyFYjyAaksRAziD592AWh fZRRiM4NiO9BjDRrtKuKqBW ppBAJdVWObZPajGHSvZ2ADV RBxVQLgQnn5OnElNXb1PUsk S0SVMVEgTLFtDLF9NUKeXmU 5GEz1AZTQMb9iBiA1Xxw4ZR O6QWM6CIX0GNkleVCmKBzqa 6PyObDvNSLwKGfkhrD9QEOk soCzLFpwwYistW7jAzLuHpG NDgKOrBCmKW61TUFyxuFQPf duJSDsRD1EXFMnPAzwLJMyD aVngPCkA6qlEMTaQ71ie9HM f7DfYR7XMMa2hpFdxcounL8 wXHJpbjAgDQpcZnMyMCBSZW NlaXZlZCBmcmVzaCBsYWJlb GVkIHdpdGggdGhlIHBhdGll jlCmxqZgSW4xFBAbU7Xvd8T vd34rpeKuXvDtWUKfCSCwhP DmXLkhtnAiUXgbBCLtJT34O HdqZS42IEtgQC39UZKhWI9g wDXhrUliWGclUEdvc6SxszJ gLKQrmpOxd7WfzXDvHQBjbf LqXVZ9RFE1RFEaCJSkKTsnx MaimCDalLdnHBQzrPwwc4kb ZyBpbnNjcmlwdGlvbjpccGF xOD9AZHGyawAJMr3gLQDlz3 2bX2bhEBRmIJcNljThaZkcf 3nnJGKmXSbDfFEfGOIlCZD3 tVUoN0EdcHbwLQSbMSkOZd9 JYRn4VbHmOLovuWJqWO3CAS FupqFNJlVqN2Mct2KwqMobs C4snaGfaCXcorW5ALvfad5d CQ7dQMEgH9Hhy11xFFLoGFK igRPvyXA1UCEbBGHPcWssZK Wcy7HqmTOoNg0vXAzkq4FbP GK2JC1zfrT4nC8rPP3iyVft YKOyepUYEkweTQIjHEyck2O zMFxlcGljWHNhMzAgDQpQaW yuyeCRcsh3DLlgHUHkMJDCC CBIVCAoQVNDUCkNClxlcGlj RwCnpBFpRiC2JLBspPPtEDC 8JX8juRfdTXErR3GtT1Ppfq Z0GKKppgRYDmexYROhBK3TE GZzMjIgDQp9 MICROSCOPIC c7oncNRiWXOfrUCgCZLqWDb DESCRIPTION (test code zcjGaIGEdcWYpO1DetvbfSP = 3371) puSY5oUW0caOfkrESryPDzZ TUcYjXlf6zat611eBHpv0zb VWLLepgkhVy8xJxmJ18ow4M 0MktdF73awGWkCEE7UFRcTY IwsBVfLZFaFIB4LMTvrIZgW 4mjSKJcAG6lnpgvSOwnSTwa KDGemBN6MQMijUOpX9RtWTW gNZraFHBrdum7LsXeFf8wlT VyeTcyMFxwYXJkXHBsYWluX ZVtLhCeKu53FYNdgnZwfe6y ZFxwYXJ9 Gross assessment was [facility]'s performed at ([facility], code = 2777) Department of Pathology, [address] [place] [address], Professional component [facility] [place]'s was performed at ([facility], code = 2779) Department of Pathology, [address] [place] [address], [facility] [id number] 10:30:23 Test Item Value Reference Range Interpretation Comments Case Report (test code Surgical Pathology = 104) Report Case: [id number] Authorizing Provider: Eduardo Calderon MD Collected: 03/13/2023 12:58 PM Ordering Location: [facility] Received: 03/13/2023 01:29 PM SERVICES Pathologist: Alice Sierra MD Specimen: Explant, Hardware for ID. Please save as technical services representative will pick it up. DIAGNOSIS (test code = [id number] 3220) uZzEwMzNcZnRuYmpcdWMxIH tccnRmMVxlcGljMTAyMDVcY R6rpFxnzSa3xSwpSAXoioG1 vNBsGHbzz8baEZS6s3jigkf kCWMxNGkrKb5zrLLmoCjmVp VePYZoPDq8aJ49WUHqkV2ix ADhYVr3IAGvqVVqplUuKtLo GDWdcSCfrAZ1YKRnDZ4ynlu dNExaDNswFWBafyX0QPFmhP VpZ7RgDLGzQN0njmtpJDO7Q PqiZFCaQQB9QzHdCDAbx3Qp otx5QfRjlLLiGCnokCCxhez kmyQdYG0IHArYPObaYNBIBG ZEHONIMIeRLUldY23VXJASA HvVDXpDAW7QQICBIDSJJxbz KUNPLZ4TOYitJ0VzbEHsGZ3 lLd5IVTqGX6VQVCtBNZ3XQC SEW2QVDR8XXU5CIBootGCzW SLpxp04IJP6ZsHnl2S9NWS1 CPGnPQDhg2qaIWKxfEIwPtQ wMzNcZnRuYmpcdWMxXGRlZm Sqv0ogz760cFRxn0mpRUUmY xX7sEDiQKAveONlF924QLMt MTbmn9iso1OgVECpcLLtm6K 6JDZOqjhdxDa6rCqxF96wd8 K0ZtykE7jmJDAxOLGfT7GbR Z3xDWWxEoa1LQB7QWP5LDWs LJPiP6HiAU9yMUYauEGmHVa 0q9lnoVsuUKZuYFW4c0jvFK mosyUmGB6kgt1ybBj8c0dex oUvHGAiLADojIKZAEWaL8Ae ePgmMc5rpZu2xMrpGsdcPHL 3Pin1EB5aau10xgx0mWglAP LyptpdJlG7TAqzHCKqfiscY Di5MWanAJKojSR7QGGueGDi B8VzQUEfOV0hesd8LSN3XMh zWBIgKoT4JNQgxDYrXDYhpC cnZKzqc464EUG0XjEvUL7wT 9Eew1T1tM7kgAFhOJLugRNu MePhTYEsss9vfSLrBEhgb7R gWIY9tkY2jBNiiRYcDKKpRv Y4JSvsMY2cfe53TLMkDSZ6d z6iwKPthRvdykXfdMOcFEap W3XqZFFdb232LMPhD7GiUNL nk4I6vxNlNfTvQBZxfUT6mx Z2TVQzLU9ounztf7tuUTnxA YdkOIYpjlQ7lgI3LBXoePPu A1TfvW5iWJCvBX7eevjjg4v sSDT5LTwhCFJiILK2NmMxVX Dot3Mjhto2YnYgu9PxrSWmQ FmzG24ix362CITugdCmG2nj bGFpblxwbGFpblxmMFxmczI 5HBYcBVjujlwqDBMnMRunV5 ijYmAwZPSbcUegJVayz7LaO GYxXGZzMjJcdGFiXHRhYlx0 ISZiaNXrMDSfQcFeL0psawv xOxSLNYWox1uiI6bghXTBrG QlS0ZsQQysrgNlHGugUPasG cOxLIm8YI07ZuSxJKBglf59 CPT Code(s) (test code o6ypePEzOYGvvATgOBUmPVk = 3357) haiQyZQUrpAOnF3BeoklrRI eqGQ9fOI4rhVcgjQSdfSFtK IRdZoUta1iiq025lJNre2du ZSVHlqfeiJq1gGkfE07bl7X 0FawhC28bhCGtBNX6DCEsWT XseUCmQARwDOW8MQLynUXzC 0feNBWhMO6skmvaRDcsIFfz HTWfkMV2FOOazTQfJ7QsJXD mWRadARDuymb0MmRbBw7osZ VyeTcyMFxwYXJkXHBsYWluX GZzMjAgODgzMDBccGFyfQ== CLINICAL HISTORY (test m2hbsBDvSLVlcQQvBPQsWNw code = 3356) nxiBnTGDsnVEvG0VadadzNN tdTY8ePG9ppIqhiMMzcWDkT OSqIdPxx3wdd856pDGcr3fl EQFXmastaRd3cOmdD60ps0E 0JeqlB7pjKEDeZZzpPSWnGQ sgxAGjGTd7PLBugHXvjbJmB bFwGBCrgGElbML7MDYuRF7o mqgdZOhpHYiaUWTkkuC1LHL ezVXyA5WlVWFcRC2khvyhAH U3IZcqGIQlALF7LsHwEZWrg 9Znrtu1NzAxvEYeTQsamQYc cXtpoK4wPxSxJMorNfEvK3l da19yRvOvZPfjONB0xoWoq8 5cTSkmiI0sRVDceTExemsoR P7bWI0rZZqgWhVgx3Lnf3Gb syUwIGBqxxPkd8ZigGTfYLS vclxwYXJ9 SPECIMEN SOURCE (test d6mdeBCgNBQaeZSmWGFvKOh code = 3377) vbnPqQAZkiAWmA2JahrxmMN zkUJ1aYB0qmJapcXXriSSmS ONpIcYdn3rxw503nVFep4ho EBDXmgpzlZn9cDzkL33hg2T 9GbjsG68riRDoHGM0GCZyST ZwwJSkSYKvDRT3VTZirAZrS 2ihZGEdBB4zgsvbEYttBVfz HAZusLB5FPVbjLVqD0TtOCG wYOxmNLDmpcn2GiZoRo2ehE VyeTcyMFxwYXJkXHBsYWluX GZzMjAgSGFyZHdhcmVccGFy fQ== GROSS DESCRIPTION y1ojwZVmFZLceQEYDVWtKGW (test code = kDD5ikDzrdNn2qMqpKZVsks [id number]) D7uJPgBJcyp2jkIIW7h6gzx xBXCilzIRXkDU6sZLhfFLSr JI6mNsGfRVJaRiVuARLxbON vbaGbBwXvCITgfVQunOL8WA TySR9uifucKEzpTRbpKOWal aV9OZOpfGLrB7CeJNPuVJ5u xrprVDG1WGXRNgetRu2apEM ibHtcZjFcZmNoYXJzZXQwXG VkzCqbDEAaYZm5qL6CKzmvT DV4ZEGVQcsrKvnmkOmzj3Ec dCBcXHNnIFxcaWQgNTEwMDA yHWuhAwKINsYgVgB5CcU1LQ H8IxD9SQs9VMHRFFYfSHM2S UG1XRY7IGs8INEoYX8uLXtt xDYhCLciEwrgOPsmP400PUs fKRCaX9UgD2BcYJneMtIyAH lnADXzQQJgFHvwHUBoQ0ZLU NHnDDGdBeg9FwAfDRr1SCok B9XGEDWcQNGeFFJ4YRSqKfI 1TWo6HEYONr2sLuK2Tto1RU A3BOU3YBB6EZwfbDUcBBesv 5TmDhNqWOPvXOhhqjD7MEMe ozEiEGhchGrftM8rUhJqPsQ JCdMEaNXxJF59HAMrpjHFZd xoIRXnJI1EPZUaKPduIUFuB fTftGZrL5izBKLiG53bw2SX h9GkTI0IVKh1nlVkrwddeS8 wXHJpbjAgDQpcZnMyMCBSZW NlaXZlZCBmcmVzaCBsYWJlb GVkIHdpdGggdGhlIHBhdGll vyQtdhNvOQ2pFGXcY0Lpb3X ll91elpFyRjGkQQIzJSGevB NpHIggbiKlTIreDUZtTL74A OroHT77ZIoeLQ80KWQzYB5m qLAhjCylTIlzNHbrd8QxzqU dOCXkebBfd0YwbHZwVLOsyf MzUYA3BIO3BSUzAODyNInsc QjzwPSvmOtaYNHrrUtwp4dp ZyBpbnNjcmlwdGlvbjpccGF lQA0JHBFoltBNIb1eEFUdc3 7gH4ldGTFrSLlDggSqkOzpv 4hqUDLtOOhDoJWxPGHmXVP9 wILjT2KjoGlbZJBfVAkQDy0 DFRv5SdCeKGsrqLXsNQ5NEZ QkoqPHJaScH2Ggh5TskJsmi T0iajKzrYBhgiK5FWvmen6o IT6sIKBzQ8Lkw29pCIZvMKS naQWzzLL0LCMiEYPBhFsnRC Ykc5XfjUZiLp8dAJbwl8KnT DJ2LX6cpbO1tE9dTU0mfMrv CMKzlyLJDlpdXZXoOQnxt7X zMFxlcGljWHNhMzAgDQpQaW vqpxPFveh1IRclSXFnAYZUM CBIVCAoQVNDUCkNClxlcGlj OeCfhBXcPdE5ICRgeHUqLLW 8HL0zqWrqQCOqZ7QfX5Nxto L2HNTyshBJPwucFREuSK1HJ GZzMjIgDQp9 MICROSCOPIC l9jgiAYuJPHzfKBmRASyWCf DESCRIPTION (test code fgrWgFTMrxTKwZ6OmyaadPE = 3371) dqDE5fGT6szDinbNZhoNMkY WHzDuUkh3mby822vYEcw9hs HCQCldltyWm7aVzuN25le6S 1OtivL44jkXJvKNZ3EUZoKK GnvFNqPELtJPI3WPLccGKvQ 4keGKEgGW3hexavNAliPPfy LDGvhUH0KNSahDQuA0NfVPY vVTmsWDRgdes3VfEiTl5wlG VyeTcyMFxwYXJkXHBsYWluX JJyFlDnMj05CXWjgvTfxn5z ZFxwYXJ9 Gross assessment was [facility]. [place]'s performed at ([facility], code = 2777) Department of Pathology, [address] [place] [id number], Professional component [facility] [place]'s was performed at ([facility], code = 2779) Department of Pathology, [address] [place] [id number], [facility] [id number] 10:30:23 Test Item Value Reference Range Interpretation Comments Case Report (test code Surgical Pathology = 104) Report Case: [id number] Authorizing Provider: Eduardo Calderon MD Collected: 03/13/2023 12:58 PM Ordering Location: [facility] Received: 03/13/2023 01:29 PM SERVICES Pathologist: Alice Sierra MD Specimen: Explant, Hardware for ID. Please save as technical services representative will pick it up. DIAGNOSIS (test code = i2gceUCcBCTfe1yeYKNvqIR 3220) uZzEwMzNcZnRuYmpcdWMxIH tccnRmMVxlcGljMTAyMDVcY X4rxTobkHj4iDfeILLqbfR7 lBXtWEada1ycKYB4f2twluz tKJLcDApcEh5gySImzSfqJv FzYACiCOq0wX29WXNmgT3il FSfVAn8TGXawSIblxWlRkPl MUSivEFcyWD9GWTfRH3jean tIAwqWGszAPZtcaS6NADypO IdM8UtQUAnRS7vylkhLXZ9D PieVBTrCAQ4SjRkSXWaw4Eh crc5RrWcnMYuGEcpuHZrhua nypIvQL2FIIaNZZxvWEFFLN PDRODPDRhOBPuwO88LPOLLJ OnWAVhWZP5VWESQUVLIHrqz GZSUMD8ZGCspK6RzwQYcIZ2 cLm1ATDgUA3TQNQeLHG2LKI UHX7RZAY1KQF2VOWpfgKVaU SNsqs09ALV3AjOmb0D1ZXA4 MJYkPELcq3fxAVSvuRSgTtC wMzNcZnRuYmpcdWMxXGRlZm Zwt3ykg796bKNyb8zsMETkB vJ8cVAgZUQktQTbO279NFHu QBfqq7chd6TfDUNkgLZiw0R 9PVRZzahtyWl3vFzeE14gc8 O3DbiyE9evOKWeOVQbM8GxN S9eSGPyNfs4JBC6MHT2KPVz LVMeZ5IyOY2cHMCnwNVzZVr 7s9rkbZfhFMEyPIC6v5cyMH deckHpTN5tey8xpIt5o3omg gCqVDHkHJTamHEZTGCiH8Fn oYsjYe9axTl1gAjfVzczHSP 3Tyz3OU6sdq88bxg2gZylQL PwgtpvBhA5JUpyRDIacnanO Gs2BGrcIROjcQO5MVYptQGe D4AaYXPgVY4taok0LWY1BHn kYJUhJgD1IZIrkAArEXBtkS vqXZbit766IPI1ByKpBO0vA 3Mmq6G9zQ2aeXSoRFUsmIPo CoDlEEPalf0wcZLrWIzml4X gASS4ulM7sFNymFVkTWSuPa N6GJepJF7auo89DKOmUNI9c p4iqEGrsYwrcjJzaMZhHIvg T4QrGFRnd621OKQgZ8YmISM dh1S8qzLjNlVfBAYrtLK6ma Z4TWGoCI6izcvam8bhYBbqE ZtkQJLpbnA2thV0IWWggTZy W6BpfK9sIAUsMH0pejanx6a rRVC0KPguOZEhLPC5BmKvUJ Qwn6Qwkyv5TeUkk1HqlLAlN RleJ46oe573GAHxdaIqX7ub bGFpblxwbGFpblxmMFxmczI 4ZMUzEUsquykrXQDyXKedS3 fpDmXvEKEciIdxXDxcw8IsM GYxXGZzMjJcdGFiXHRhYlx0 PAVblCJnOFDdHkFbG4ivrik uYbBHZPVrl1nrC7cdnYHJpL ThG1WbLOlqwfAwWCepXXumM oXgSSl2OL21EoLeRIZkuy00 CPT Code(s) (test code v3sojOCaDSVsjGTzGDCpGZv = 3357) wumHpNLRsbFKnC7YrwfkrVE wzVJ2mJK1iaZrqyYYdcCIbT ROnQyYjr5jfq294cBOnq0if TBGQuvxnkTq7vLidL06cr2K 5JmryE49jdCDdPNJ0QAYpMY JvbBJbIUHpNFF4LRStlELrM 8obCXQtBJ4vnplmRBcmKMto RJTcbEP2OJHajSCkO6NeAHF aLKozAXTgyjv9LzWbGa0duR VyeTcyMFxwYXJkXHBsYWluX GZzMjAgODgzMDBccGFyfQ== CLINICAL HISTORY (test v8aniZLgXJNxpBLdNYBkVNr code = 3356) vmxZdEFIheDWyG1VcwufdOF zuYF1uTF1mjTmeyJBbsGJrI ZVyIvPth7dph368hJKqz1hu RWGTdqvnhHn0dNysL39im8D 3DemdQ3rrTHAyFDpqECBaMC tbgUIxQUo9REEuzHWsrzVyU sZaBOTnbXSrjZQ8HJYrTH4x ytugPTcdJGlwZVEycmE0BHR hwTLcU1BhZQKeSI8wewylJS Q5XVswGZSgJVF9ZeFoBRVhl 1Arsdy8BuElzERsMPhadPZu qEiyyQ1hTjVrKMbdIhNwC7s rc00pFmBhPKqhPKY2axAcf0 8uZRppfQ1aGAAijOKxdbyyZ T0yZO9hVIexDsGop2Ymh5Es alYpXHEoegWzo8KpsMXeAOL vclxwYXJ9 SPECIMEN SOURCE (test x3hzvRPcLWDxhTAuCROkIFs code = 3377) ldxDaEOBxzMIjC8EmkkeiDT grSG5nAE0amZjrdLKpeSYnV KCdPaWut3lik331uFPkx2iz UWJWuqvcrAu8uSbnM79zx3U 2XgsuS33vmZSlPAC8SRFyFJ EtxLMzQYLiCRX1MNZlnFHkC 4ltBICgPC0wugejKKaxIFxn AUJntOG9EGSgbBJgL9DhPBR dQDzbUSIbgkb8TdCaJm2rqA VyeTcyMFxwYXJkXHBsYWluX GZzMjAgSGFyZHdhcmVccGFy fQ== GROSS DESCRIPTION o2dlyHRlOCTfaZPZLHFyGFD (test code = rUN9nqPcsoTv9xLggKMDbnb [id number]) G4lIAlADeqx5xzHWL9d3kai gCXPrnbISZvQU5hPQmjIYCu YL7yJdDaMBJmNrNbNFYigCA jirZfAwJlMOPpvJDuzHD8TW MnTC8utroxTVtxTNpjYGUhs eF1DWDziEAuB1BzHLGkQS2j bagsWNA1LCESUknrZt4ruVS ibHtcZjFcZmNoYXJzZXQwXG PwaIfuBUVsJSk4kV9HDajpR IQ9ADNVNvudSxmlzRnus9Uy dCBcXHNnIFxcaWQgNTEwMDA bIRldGuIJLzTqLkV2CyT8PW F0GbD0QTe2RLAMXCGaWCC3Z YY4UBR7YHw5KEFcQO4iDBry aWMlLPlsJjfgJDpyO142UMj sGVFlY9JmI5KmPFirLeXoBL fsMZXvJREdKKpnGRDvU3DWZ VLzWITgVeu8IkWhIUi0PGus P6YZGYQjZDCtGDP7TNJpXpY 8LGn8QPQRYv4fFpW0Lyb5WF N4MHR5ZYU2VNyfvRXiLMlfr 4QnZwGiWWWbOJrzmtB3IDPs wlEbBItcdMyrcF9rIuSgKiY TIsZIlYYhSA97TCFhdjRAGn kzAEXfDV7UOXBsMSanHWFkC yYnoWMxY5xaPERfV27ca2DR k0NkUB3WOSm0stAxvizsrY3 wXHJpbjAgDQpcZnMyMCBSZW NlaXZlZCBmcmVzaCBsYWJlb GVkIHdpdGggdGhlIHBhdGll luViwnVnWA5nBMAuE5Hkx2Z tj30lvgZnXaAhJIEfJSJhyH IxPLyxpdIoSYyiUVAgSB52Y ZmgAX53UXhiHY50MKXpMX7h hCHjfDetDUvfYWzsn5DtnkR pYNFhnpQvj6MwrMYdLUOmtw WnVRR9MKC4PXVnXRBjAXvor UqtfAVpxVavPXFnkQgju4rz ZyBpbnNjcmlwdGlvbjpccGF wOZ6OWBYjowDXMn0iIKMrj1 3wM5ybTIRpOKmNkzOjzRsjd 6qsMOYnGGeKxATvVVOqLTH0 bYAnY6FmeWzbEKCwUFcLFy7 VKWe2VuKdRVmyzREjPJ8ZFE IihiZMIxDxS3Irw4AktJzuw E8menPccEXashF9GSdejb9f LW8dVYBlL6Amg81aDUDrMMH rdZSjcLE1JSFbMWNUfHsfCY Ybj3RrbATsQt5pJKuwr0XkU UM4VX3kjzM4gR4qNF2koKqo MIVfkwHGOwvrAXGcKXxhw6W zMFxlcGljWHNhMzAgDQpQaW kpojWDdhk7GKjrKRMpRHGBE CBIVCAoQVNDUCkNClxlcGlj PiQwdHTrDzQ3SRGnfIMjTMV 3VF2hsKchLWIeE5QrQ9Hpmp V5DXAxxdYMSemyQAEkYA8DI GZzMjIgDQp9 MICROSCOPIC k9ynnXYoXNOlfXXqEVNlIZk DESCRIPTION (test code yqjYrAYOwaWJaB6LmtfazAS = 3371) rcJX9fZG8vyLozdALsjDUmD NHaJqLav1dtm575vWSfk2is NCTAphnpoTh9wBlgB56sk4H 5PbyxO41fjGYsMXY7ZLSlYP SbfEIvYNShYLF6FYMqwASyG 0lcZUGiGN3gqwpfBJytGXyx EYDswUJ5GZZjoIYsV6CiYRD cYFcaAQBaiqf0RxTsQx3djV VyeTcyMFxwYXJkXHBsYWluX LFqEqUcKw75VVJtvwTuqj9z ZFxwYXJ9 Gross assessment was [facility] performed at ([facility], code = 2777) Department of Pathology, [address] [place] [id number], Professional component [facility] was performed at ([facility], code = 2779) Department of Pathology, [address] [place] [id number], [facility] [id number] 10:30:23 Test Item Value Reference Range Interpretation Comments Case Report (test code Surgical Pathology = 104) Report Case: [id number] Authorizing Provider: Eduardo Calderon MD Collected: 03/13/2023 12:58 PM Ordering Location: [facility] Received: 03/13/2023 01:29 PM SERVICES Pathologist: Alice Sierra MD Specimen: Explant, Hardware for ID. Please save as technical services representative will pick it up. DIAGNOSIS (test code = [id number] 3220) uZzEwMzNcZnRuYmpcdWMxIH tccnRmMVxlcGljMTAyMDVcY P3gjWugySn8oByeCCFtgwV0 hKDcWSsae3iiPYS7l8lfltl rBGFcZXziUz1kqRMhbIjxSj OqZSTvFUn9uT21QYZbpP9uf BMkLKq8EABukTDkudWcBwPw YKKdqGLreMZ9WTHzTI1wbks dEDjdXAupHMJbogK8VQNrlC FvJ7PgPDLkAK9emwhpBEP7J RbgDKWhEJF8HnNfZGQgm8Ml cio1UhGnbYJgGBonsELudcg zuiOqVJ0ZKXjKQXwnYSIGZS OREIBUNFeGVXniH46VWDWDP YyVSSfLBN1WZRDGDMFABhjb FNFSNC3RFRasD3VxeXGfBJ2 wWb8GKOzHL3TPZJmMOM2JLI LBZ6ZRNO1CFW4MGXdxoBHrH DFfgk21TPU2XqMoz0I0GXU1 DDQzZWMfl6mpCRGagKAiUiD wMzNcZnRuYmpcdWMxXGRlZm Rwj5bbt825tBMnu0loDQNiE qO5rASkCWCntHXzE352SCWh URyjy8kge8ZjDMMeuRIyr9G 4ZQCZdwdczSj4mVylE64xg5 E6HdlvS9waMPFmBQPkR7CkL P5oLZWwNjo0IOT2LSF8TNZw YBDoC2BkEH0mEBHocYExLWz 1p0myxUplMQCaWJP7j6jkZE yjkmXbQB0eus7iwCl7l8uhc lRtXKTvYILpeUHIHJMwI1Ga uWzpWz3xjLv2gHmrPiphKVU 5Ajm8GI7diw24ned5kRwsOT NwqhqyBdD8PJcjWWMydmvyJ Ux6KYinMAVrkTK7EVMdgHBr R2CzQEAzJG3fqbq4SIG3CFj cHNDpPkZ5ZNKayKUmAJEkbN rjCVhhp862GAZ7HzSlFA1uG 7Rno0S7tW5zvERaOAVmhRPj CoAmKXLllg0jdKZcGOiwe2U pHNG6onI7iOUeeIJsDQBmTi N4OHwoAC9nqp52OLMiGRY3m u9wtAHoaTxgfjPdxWLuBEjq M8QhYAHks647OLBbM6XxTYX ch5K9nlBiVuErNREuwRD8yb U1HXWqNY3fxblda3uuFTxaU YxuKTZlwdU7yrQ6WTBkpXIk F6SniB7kTPLoXT0oxcyil1q jAMR6BOcvOMFrXXV8TbZjBI Alu3Czqgz9OzZsu5AutMBcN YxaW49aj718IMUywrKmU9kq bGFpblxwbGFpblxmMFxmczI 9JSIxEFegidatGYKfKNqqC2 jsIxFmXTHknVtyCSxrv2YxE GYxXGZzMjJcdGFiXHRhYlx0 EIOkeZLrYSIiBuStT0nsogd eJfYJLZNbc9ebP8czmFAKuW IpO1XdRQanbeYhRAhnYFfqY eLyYNr3DQ65TkHiVAJcjm68 CPT Code(s) (test code l7knyERjVXJzyFPhOWOfSJr = 9904) rvlAjDMNniSJhY6EugiinUR kwGM3aVB0hgTgdvZEhpHNvA KFmHmGqf2ley608kTLny2tf XWFLygzdhCa5kRgtT42xv6M 3RmwoO87fzBMaUYT5VUGzKE ZtdGToRGFkGZO5LSZzjZCrN 6wjQUHiVZ0afsycFDjhSBmm BDZjwUY2WPKymLQcT8AtLXG yRZgnYCNxwbr0XfCdLy9gcP VyeTcyMFxwYXJkXHBsYWluX GZzMjAgODgzMDBccGFyfQ== CLINICAL HISTORY (test c7uqhDRgLDHmeDRnVENfNWf code = 3356) irpPiXYDnvMKlR1YaakcwMQ lnBY0zXI8ogVaprSUvcIAbT IOyUnGel0mld909mWHcb4kv NOQXkkvzoNh8nSxdS09et7Y 4MsdrA3ndECErPQheAJErFP wirKEnUJg4XLHrsIYfbdJvR pDcIRIzpBNnnQZ1DQPrJF7b bvdlEKrcJSsbMWDerzO3DAH xxXOnD7VzFQItOQ9mqsjjWQ Q0KBvoYCEaIOM2ClFmAYExc 3Vpjxj8VlCejWDuSPvpoHGj kRkoyV4aNrXlPTfuBhFzO0o ga02eZhSmTEhjRSA8uaAje3 6hSIkknB0gJWQqmZIcsgbmD N2pZU7hLOvpUkWxb8Yrx2Fq mmKhENGnrrGgj6IqjZFkUPO vclxwYXJ9 SPECIMEN SOURCE (test d8wdnGLhKDMekXUsJQZqMKl code = 3377) lgeLjXFBkeJAlC8WqutfeBX ltWB3cZJ3eaQsjtXNlrHUtR LAaYlKgu0def673yUVfv9mt IMGValinjMj7oEdtQ43ts3S 4GomzT13xhWKkNFK1EWAeIT EveBDxNFLzMGC1FBPitFWvH 0erPGUhZF7qcsliDFowNDcp JSEdkRH3JWKmdMYfF1DzQRL lNWvuROQcjyr6MfPdZz6xpG VyeTcyMFxwYXJkXHBsYWluX GZzMjAgSGFyZHdhcmVccGFy fQ== GROSS DESCRIPTION u4fgaDXqBQRgtIIVGHJkXSH (test code = mCE0owJlcvKo5kVawWCCsrj [id number]) J2dOGbKTxlq4ygOSV7j8vqx jWVQskbAQQkMP1iNWvgPDWw YX9nOrNhNVAyYfSwXAGeiFK shiSqHsToRGBzfFEitFM2KF OuJW8hjzftORyiMZugVBZol kK6MIOobCHqG8WuZJHnJD8z okcsMJH4NEKBVnomNh4qiBL ibHtcZjFcZmNoYXJzZXQwXG PkwDezDVKyONh6wU8VHqkwL JZ5DKQNNjfrShoqaRtll4Wb dCBcXHNnIFxcaWQgNTEwMDA qDJjnVaZKGfRfPwG0OqH9DY A7BaV8XLi1BHIASNPzYIX3H SJ6RDX7GTy8FWNnSD9pPQjb xGTwGKqrOmtaQEigE868FYw gDWZfE9ZiN8DkKUabNaPcRI mvKEKjCTGzAQjtJOBlY3KEE GWiEXWgZxs9LqYmHFa5PRym W3HUHRHwZVBpJGK7ZUMcRqI 2FSo1PZVPWf1nXxY8Dvf5LM Z0YRW4RGB7OPissHIcAFxak 0EyHcXmDPPhOJazelX0EHRw bdAtDZlzjKzakQ9yXkCbKbH YQuSOuMYbWF25DJZqouGDQa aaWJDjGV3ILWZxFRvzEHHjU mXxlFSzE1pwAQOaQ23ve1GS t6LqQT4XQXx7fsBwzdlfgJ4 wXHJpbjAgDQpcZnMyMCBSZW NlaXZlZCBmcmVzaCBsYWJlb GVkIHdpdGggdGhlIHBhdGll nfDlzkZdIP9zGIAeK4Keq8T nr91huiYhTaZxRGTrOREvzQ OeDRoyhkAuJCzjURZcJQ38H JkgHZ55PGnqUL01HPUeTF3c dSGrfRolEDhyHVbbw7UznrL sFTKnlfQgi3SfpDVqUOPapi AaOKL6FSV7ZNKwMWCqSWeli PdxzAAsxWunIQZluEkwr7pp ZyBpbnNjcmlwdGlvbjpccGF zZZ8BGFQmnqBJLy3gLWQqo1 1jI1qbPNVhMOxPtkCcqPqoe 6uwAEXwWGoDxDUzPVIhLIG6 vNVpH1UubWdaMXNeBHeMSa9 NGJz0FmVrYQtvqMQlAH2FIE XaifYCTvAeK9Lul9LixJryb R4teoUgcQChbfC7MYktao3b FW7yPLOrJ8Lrs05hAJLvQEL loVCuhZM9LFKgKLMMrXqgQC Zil3CojATnDb2hSTwzq3JxX HX5KJ4xczR7nL1jEJ6rvQft FAByhoQQUsurCKErBTbkw5N zMFxlcGljWHNhMzAgDQpQaW pdptOUbop7AHxcBZZaUJJTW CBIVCAoQVNDUCkNClxlcGlj UiNztAGwLkJ1IOIfqBUcDPD 1RS7xqIvuUCMvQ9EtI0Ggol R5ZZUtzxZKAyfnVWUmGM8MR GZzMjIgDQp9 MICROSCOPIC q6ispEXvHJWzcKXuRKQeCJm DESCRIPTION (test code xqbAfOVLslCBgE8TscgquKU = 3371) dgOK6bIQ1nfXhtyFMlwFUyH GUvBzOis5vfx674eKOmh9ay TVPLpyfgaJy7wTthT01xg3K 0IcnpB53jxLGoZSQ0MPDjDX ChnYZgGIFyCGP9SVLfbMBsU 8ltDKCwFH9bqyabSIsjQPzi EYCwmVU1MOJbsXLsE5XxPLP pHIblYRBaier1KhMqTz3erL VyeTcyMFxwYXJkXHBsYWluX XEpHvClVb13ZOYeqhAeck8n ZFxwYXJ9 Gross assessment was [facility] performed at ([facility], code = 2777) Department of Pathology, [address] [place] [address], Professional component [facility] was performed at ([facility], code = 2779) Department of Pathology, [address] [place] [address], [facility] [id number] 10:30:23 Test Item Value Reference Range Interpretation Comments Case Report (test code Surgical Pathology = 104) Report Case: [id number] Authorizing Provider: Eduardo Calderon MD Collected: 03/13/2023 12:58 PM Ordering Location: [facility] Received: 03/13/2023 01:29 PM SERVICES Pathologist: Alice Sierra MD Specimen: Explant, Hardware for ID. Please save as technical services representative will pick it up. DIAGNOSIS (test code = [id number] 3220) uZzEwMzNcZnRuYmpcdWMxIH tccnRmMVxlcGljMTAyMDVcY H8dwOqgbRj1aVocAHOnymD8 yFXyAAmfx6obHAK8d0pjuvh iBKWbMZakPj6pqCZojJuoDm GnTGLvSBh0nN66TVBomH7ks BFgUNs6THGlnXAwxxBaEhEa DGPevLOhxZW5RIBsRK6qjas qNWguSAjaKPLbxqI5GUHhkU BdM5YtFIGtAS4dbvrePXT6X BcnGSTzNVV6QiOcDPAcn7Jz gnq0WrDncYGaFVjlyJBitgu haxUiTW1JQYqKUKfzWMZSCF CXWPNJSWqBHYtnG04GETKCO OvDVGgOGP0YVBMFCOFIDflp VCVBLH9CHYqvA3FspVHgNL0 yTd7EUDiHV3VVIXxHNQ5YZM WDO0DMYA5COB2BANoloBVcF EKmpf82KLT1DxKst7E6FTQ4 AKYwBJBuy0khQXEjsEUqIeX wMzNcZnRuYmpcdWMxXGRlZm Rxa9vwk981fOQiv0rqYYXsS sQ9vKHnCCVjaVAfF442UYYb EIlkr9hnm7PqFWLxwMPxl5M 4YEPAlwvfpGf8hGefG59uj6 I8VvukS8nfSDDnGKWeX3CiJ C8jHQKrLcm7EJD7GWF2FYIb VFTjR6XiLA5eMKTnnFNgLYc 5g3htvRflNWLcYNN7r5gyBC pancFpCP5bvt4vpHa7o9zho tVlRCFhORXzuLGKZTLaY7Dh kGznUr3tpDl7rSmtXiieMFK 5Axa9TS4efe37src1yHsrAT DsipdbFaR1KPjfOOSvgvxxN Gd7YDyoPYHlbLM8CUSdsXUx F9TeTHIpEN3gkfm2TYJ0AMs qRIDhMtI7GCJzvNXmHTHwbO uxNKlkg409AYO7OcEnPE9yD 2Kzm6M4tK8clZPdVHHowWQl FuXgRFVcfu5eqWHsOGjqz5D mTMH0idN1pIUcdWDdXTYkNs F3DHlbIA6msw58UFEgPFM0k t9izAYxvGdfjiYalRRlKQkm Z4VjUOPtb955YMYeN4AlDDN vd8A5oaGsJgCmVPUxmAM7jm I8XYAhRN3pihxxa1plQHroP CunLAFiueT5rxG4OKKquUDn V0AfbB0lZDVxDS6cwkkmj0h cOVM5ULkwYWXwMTG3FcAuXH Bhl0Hlldc3LxFvr0ZqdVIkL MpzX51pv586ZLIrhyAqY3we bGFpblxwbGFpblxmMFxmczI 3NRTeWUahuiwfSALbBGjjF9 qyReEuSOVtzZsdYVfkj2LrT GYxXGZzMjJcdGFiXHRhYlx0 EAOnxYRkUJZnLtAxV9kzdwv eIyAYGDMsc7pqV4sppIPTuY IsD0LiZPbxkpWiSBoaQTrgU aQgBQp6RP85SvMkTZWaoh70 CPT Code(s) (test code d7dxoWUaQADosJWdYWKgANj = 3357) elmQiUUCxrSJyD1KbrdkmMA xpIO6aEG1vmZjiwNRmcHJnQ ZBsLdWcr1ldq179rCJlo9hm ALSLdjpwhGi8zIjyD16po2J 7RwzuJ45alXSeZXY1NVIsKI EflNFmBVLzBQZ5TBQubFGpK 7vcPOFwWA8uztujDCghFLtt TVWfkUB6AFYvtTIhR5UoAZC uRJyiSDXwpje8JpQtHc3naI VyeTcyMFxwYXJkXHBsYWluX GZzMjAgODgzMDBccGFyfQ== CLINICAL HISTORY (test c3rmaBPsISZooUKgTJPeFSb code = 3356) ushXfQXHmaTVhF3EdeoxuXE mzDR2iGS3lhUrpmVIroEWyW SMuNiZjg9ifj348uQRfm7op QSALdwfssCp6hZsaG91rb2Z 3UirdB4wgRZYeKUuuLYMzOO dozLYpBQk8WZGzwFEfqgWjI aIlNXVldPKayFE5AQVnLC4v eoirWExxFShyMFCmybL4QLC gyOJjD9ZfPJUpDO4rnjbmOM K2NSpiDFOzJBI6QcUkCGWpj 3Crnkx9OlFvpEKvSGeitHBp lPijiR3dKkVqZUkhXpDcA5y mj70zSzVeUMvfGYT7daNhu6 3dQWrygS7bSYXfoZRpmtlyK C9dMU3uHIfzObMec0Xhp9Tu wdJsWNRmmuCap2WdgJMlZQM vclxwYXJ9 SPECIMEN SOURCE (test p7akhLBoHMWmxOOhZQRlQDw code = 3377) jzxBhBUBxrJZiZ3HmimlwMK dvKH0qPM7bjXesbKBtlRToY GYmViMha4zhk575wUUqp7qa NDFQiflopPn5bSmwK55jo6N 9GrzhJ48unCDePIC3OLTsMH SolMZmEEUyUGB7DDVcjORsR 0mjOYKsAK9kxmmlZMmqZLab NUNaoBB3LWAtpJBfF8EkMBV dOOvsVXGrvcb6PdGaMf2nvQ VyeTcyMFxwYXJkXHBsYWluX GZzMjAgSGFyZHdhcmVccGFy fQ== GROSS DESCRIPTION j4bgzOHlOMBsyJPSXTBsWBV (test code = wYK1mkOhyqYn5pJlkRAUsuw [id number]) U7gFLuUHhas8kdYIW9x7bhs kIUIuubZKHoWW2kRMsnTADb BY2sCqTmCMZmYeXzZNSiqBU mjtPyPmVwSXSejLPztCD2RE IzNJ3ajeekCEtpMWplLXFdy qE8PXDntKVsF5EiMPGaOF3j oqrcYHM3NTPJUsbiUu3vgZK ibHtcZjFcZmNoYXJzZXQwXG JcuWniJMPlGWs7wJ9REkudR XZ2BZJPFmocWpyvtAsvn2Xd dCBcXHNnIFxcaWQgNTEwMDA bKDijAuFRRpEtZzN9FsG6FJ R2QuZ4YKu4BARIOMBtXZD7D IL4NOR2XCb3VYZdZZ9wMIyg vUHwEIhmSgjmZHkrZ530TDr cHPVnU0IeM7HmUCaaHvSeQX liLGIsRZZfCDljHLRmW7AFR LZsEFHeVtl7XxTaLPq3NXpk S2OYWUAlIUBrYZZ1HDRcIfT 3RVk0IJUEOv6qUtY5Eui4CX A1ADA7IUQ9FLvrtMLySYkqe 3AcIhDjEBRrWZceyaN9PMUc qeOiAXddtHybeW9rFqMyVnD WIyCQeIWjLW62MEKlpwMMRo gaZWHsOD8FIEIdIJlbPTXfU zEkeAVnL6fhEKIvW29tu0XG i7ZpYH9FMYs0csYcybqaoB5 wXHJpbjAgDQpcZnMyMCBSZW NlaXZlZCBmcmVzaCBsYWJlb GVkIHdpdGggdGhlIHBhdGll etXumfJoCX4cWSHnI5Kdv4E ek51skvZcQxKfALYcHMZjjB QfEIqemlHeTHosKBAzIG46L IeaUD65STetOJ16SJTxIW5y wQSisKpuBEzdLCcnh4FbzrJ oXTVlprCuz7NduXIoQMMzmm ObSMU5VHU9HPCqRNEkTEmrb QeddBJgrZlhJXElxJjxy6zq ZyBpbnNjcmlwdGlvbjpccGF gMG3EUBScurUOOj7lQMSgg8 4bI2enGOBjSWpDtnCblPepq 2ybWARzCUvRpTBsPDNlMOL9 kCTpO8PxjDliLXJkTYyIFu5 GMLi4UwFyKAzclGTyPK1YTU YdthCWUnCjO8Jwh6BkkRxnk H8gtzPioEQmjcU1AMaaai4c LM2yOCTfB2Mzi26mPDWdOIU ecAKejRX3GSAmIVRWtSquIU Scl8UqvDOuWa6tJOkar6ScS IX3RB8syxV3eC4dZJ4ipEoe YKGvuzDWGowtGUCeXPqmy2H zMFxlcGljWHNhMzAgDQpQaW rrqwWCobu8KVecNXEbLVYXL CBIVCAoQVNDUCkNClxlcGlj VjUbtYQxQiN3XJOnhWQeRNX 2VB2ddKfgDLQdF1HxC0Qghx K2KSUydlPYYhfvPIJyYI6VG GZzMjIgDQp9 MICROSCOPIC f1xnpEFnBAPzmXGwJGMsQDd DESCRIPTION (test code lqqIpHBQqkLXcM4RwtazgNJ = 3371) esJZ9xGL5rtAxotCMivJEcU XZnEuAbm8des732hTEtw4kt JKAOmwiwbFa1eIlsX98mw2Y 0FidjU66mkVQgTBX3MUMtVP CpxFSeFCFfZID0YIYcvAMbB 4gyPBByCW9xrbfkXMxdENka HGOsuBW6SGIpbZFkF2RoJGX iVXxsBRNzopo1UmBtPq5nnV VyeTcyMFxwYXJkXHBsYWluX EBgIoQkIs76WZIopnXobf7l ZFxwYXJ9 Gross assessment was [facility]'s performed at ([facility], code = 2777) Department of Pathology, [address] [place] [address], Professional component [facility]. [place]'s was performed at ([facility], code = 2779) Department of Pathology, [address] [place] [address], [facility] HospitalT[facility] [id number] 10:30:23 Test Item Value Reference Range Interpretation Comments Case Report (test code Surgical Pathology = 104) Report Case: [id number] Authorizing Provider: Eduardo Calderon MD Collected: 03/13/2023 12:58 PM Ordering Location: [facility] Received: 03/13/2023 01:29 PM SERVICES Pathologist: Alice Sierra MD Specimen: Explant, Hardware for ID. Please save as technical services representative will pick it up. DIAGNOSIS (test code = z0hseYSyJOFyp0zzYXPlxLI 3220) uJohanaMzNcZnRuYmpcdWMxIH tccnRmMVxlcGljMTAyMDVcY J8yuXaedHm8qAqvBARncbI4 ePMcIRdvg5pdVXS7l0ruvoc uEKSmYFftUl3qvABcpSdqYv OrCEWzGJu9aL07QJWqyI6ys ELmIBp7DEYmrCYpshNoAkWv LLLeaWCweEQ2SNGgMG4gxxg jYKbbPLmfHMYnpzH7HWUerB YiD0OtCXXxNL7txawxEEP1M MsmGHOrQJJ7BvVzXPAyl3Xk aqn9QeYrdMLuRCbqnWGyesj ypyDqAU8JOTkDABswQCGWGL WXVCAXBMaECYoyV46AESDHA KjBFXqICM2ZACWMCLRJTqaw XSHMZG4YPOtkE7PwuCMfYT9 lVt6ELGbYH3FDTQuTYM1ZWR WPS3JWTZ9QPK0ECErcjHOaL QJbtj92ZWX8QdOcp9C0ZHJ7 MUTtUCXmj4bxRAHivDQrPwX wMzNcZnRuYmpcdWMxXGRlZm Arj6qmg515kBBbg3aaARTrN iV3wPRwARGgeZMlQ983UKOk ZKvus8mre2VkNTXouBYqu2Y 0BDVHyspoqKy4tJhgU19nl6 E7XcmpF9cdJAUdTUHfE2MgW G0pCPMsBhh1DPB1FKD7DFQd HGGnN6ZfFG2cXJUejWRxWZb 1h4bikWhsVWYhIRF7f4iqQZ yrbdZuHO0kng0esRk4z3qcv lPgOTGxUORtuYBAMGAuC0Vx rQjoGx5phMa5yUcwHvqvUQA 6Hml6ZB9peh85kpf2yCaiXO YzjiauXiH0HSexIVTrnsiyW Cs1LLtqWCXjtIF5HLUjlRVz X6JtYRRlKZ7nbke3RSO3TWp fXUDqGhJ3PCKifJKlTPNueY hcWFism293KPL2VtLjDN6yY 8Sln7B4uQ5nbIHmYCPxdTNc HyFlEJRjct1rkNPsOLedd8D hMVU3tlA4hQRweQQnMEChQc R7DHrkMI7aaf78NCLfSMX6d b7udLJyjNfkghBvzMMeIThx J6ZnFOBql986XFVpM1MmDOL xq4O6ksFkYkRzMBRtsGX1je J1XUUcQS7lqjcar2vlGNspY KrgHCRvoqZ7bfB9ZJRkdHIr D4RzmS5gGKUpTP0qphinz8r eYID1FFyqJQFlDVM8ZbMmKI Way0Ylgiy7MzTxt9HvqOQzU DtqM05tm288RYFlilScL3gv bGFpblxwbGFpblxmMFxmczI 4XZRjVUeogkkyRIGkETcsP2 ddCpNlLNUfgPvlLExrh7XmC GYxXGZzMjJcdGFiXHRhYlx0 HISylMNfWUQyMkVtX3xfvfr kLdKNURNhp2azD7metOROeT GqH2AiZCkiuyAfBDenHAjhN kTaGDy6VI31YpLrCHMnfr37 CPT Code(s) (test code q0nlmBJuMFRmeVArGVYxOQt = 3357) vysVkDVImkPIqI9MyluecHG igNJ5aHO0wuIveeDGfoWBbZ ZDjCbCbe5qui842vOFtq1jp CRHImqmivXd4bOtnN75pr8H 9WoweT87kfWOkYID7ZEUuMT GsrWZtBHLfFND9LWKnzRByH 0nqXBJgCP0oeezxJAnzQPxw GOGqxCD0FYEqvPSeA8UzDYD zKMltPWCfnlv7TaNkGw8uqR VyeTcyMFxwYXJkXHBsYWluX GZzMjAgODgzMDBccGFyfQ== CLINICAL HISTORY (test k5ycrVZiXYNaeTUeCCVeIRu code = 3356) ngbSyIBAtcHJpB2QywyinFT ajZA3yPO0xiIuupEEglXLoT ITiCqIzr8sjy123lPMwc4nb PEHSqyjhzCs0bJkrM60ns3X 9NysmB3ozHGAkOOdqIJYwTJ okkXUqRYs9YNDdpOSrytDeL sRxYHShbMHubZF6PNEvKC5r jwhpYEpzPJlzCNTlkcF7TWJ dbXQxM8McBHKsYN4nogpsQX N0TJjgDVNsCCW5GqAoYTFyo 1Bvydq6WnCndINaZAjqmIGx yEpbuK4cHpWpWMshEiNzC2u of81gPmKpIUfxNSK8aqEpp8 7vSNsqtE2pTTQadZQmtxpmL P0yGE5eTVqtAnBeg2Lfb9Si vtMkVNQzdfQtw7FrrXKbDOA vclxwYXJ9 SPECIMEN SOURCE (test a2vlpQJwEXWgqDOxELPaCXb code = 3377) srgDuKTLckNUbO7GpxualEY dfGW7fUC9kmYocoUUdaPReU QDwKsDyy1ndd448pYGib0kt LSLYehsmoZd6qYafP27qm8T 0NkzlA47dhNUdYCU3CREvNW NlyPHzNACrCQD8QNTblDVeO 9opSIJrRG0louztGEieTHpn QXOplON4IBRptZRrO5TtYNN pNWypSTBinro2XyOkQj7ouY VyeTcyMFxwYXJkXHBsYWluX GZzMjAgSGFyZHdhcmVccGFy fQ== GROSS DESCRIPTION n4dvaOUyLBVyrJJQQCDcOFN (test code = yVF9fjYjgdAd6uWbmUZTkha [id number]) E6hFSfLTyms5dhFGP5f6nyp rITFopnLENrPI2oWEcrREJr AA2hTuUkFHOxLeXwNASmvHT cylVbRwDtLTRqnSGrnBA7XF BbRE3lwqqvBMorOHpiQIZpb fC9VHFoyQGnO1SjPTKjRQ6n obasCYC7DQFMRiesFo1qmEK ibHtcZjFcZmNoYXJzZXQwXG TzaAmvKDUzCSs1wT2NArdiQ AR6NJFTAljxDjxspVqbb5Xr dCBcXHNnIFxcaWQgNTEwMDA jDYfcDgRHZsFiBfK7WoV5TM U9PaD6MNg3CVWKVFPeVEP2Z AG9NNM8PKv1HOQlVK9wUPes iUVuXIupLchaIZzgQ155LIo iEBEiZ8RxM5RsYCayHrEaQN icINYmPEFeYGbnCMFsD0MNK IJxGERmLqv6JmCpLQf4WNek F5PPQAEhKXXtDDL5DUWkFdR 2FUt6DVYBKw4bTzP9Slm9HT Z5YSI0KNP2LTvwhGByJImsx 7GkYePvDVUcWFhacjD2GJKj oqGwZYivvBuxxB8cWmJsAdK DKeLYzJIpIM82VRWtdlTRWy ekMHNsNY6ISLJoPKvvPIGdA dEelZVaL6tyHKXhL83gj1CU t3XzPV4QLMl1ixHhsvgyqM1 wXHJpbjAgDQpcZnMyMCBSZW NlaXZlZCBmcmVzaCBsYWJlb GVkIHdpdGggdGhlIHBhdGll ivIdmqSsYK6uQCPcM6Oyb9O jy20kmzJmMpOwWWArWTUbgM ThSUjptbZjAMxvBDAyQM15L MgwAC64UWemYV73TKJhXX1d mFPsvUegEZgyXPaqg4ElkpI mPJOdafGgm4OxbXIkLPBccu FoNNM2NOX5ZDTjLBHeQDlko SqhgETnmLdySCWhfDzhm0zu ZyBpbnNjcmlwdGlvbjpccGF kED9SZCNdwjUTXo2gXNTid8 8rF7miYLAyRBrQsxXvoCbik 8pkQSGnBDsZrTMuGQGrOMX4 dGZeX0ZquNyiEUNmLQpCEr9 POYd0EyJxFFprrUUqWL4UFX JzbjOCRzYyG0Yvr3BbkOryn T1zkoCuiARduqB2GZpkip2w KK4wRLUbR5Gtg93rXJAsKFE fyDIunGA8JQLsKMBQlVbrDP Abw0MgwFPtOr5rLKmrt9HgO ZL2XI5yfbF6oV3yGE8huNas YFKyurBKQxyvLESsTMman4E zMFxlcGljWHNhMzAgDQpQaW qkmxYFygt5GQunKBRpIIRTW CBIVCAoQVNDUCkNClxlcGlj LlMzhZVmQdG6NBEoeATjTLY 2JA3yxLdoLPMiK3BpN6Mitb W4BDIemaWKQuxyXOUyGS9UB GZzMjIgDQp9 MICROSCOPIC e0citYEvFVAjbBBaVCPbZCf DESCRIPTION (test code onaBqDCRkeYJvE2GogthaBU = 3371) reXP8aLB6srJygfGVbmLIpB RAyRbKbd5idr363rQSlz0ar AFQZwejsgKx5kYjkB45gu5H 3JyyoN42ofXCiKMN6NELoFS OztIZfZVIfRGM7MRWtmGCyU 5paMIZkJM0fwrqpGIpdOTso LMMxyJP9EHWlxLQpV3OvQVF eXNwoGZRbamr0ZiXqHb7fbB VyeTcyMFxwYXJkXHBsYWluX GGfQgPbTo92UNZmmcAaaq6p ZFxwYXJ9 Gross assessment was [facility]'s performed at ([facility], code = 2777) Department of Pathology, [address] [place] [address], Professional component [facility]. ke's was performed at ([facility], code = 2779) Department of Pathology, [address] [place] [address], [facility] HospitalT[facility] [id number] 10:30:23Surgical Pathology Report Case: [id number] Authorizing Provider: Eduardo Calderon MD Collected: 03/13/2023 12:58 PM Ordering Location: [facility] Received: 03/13/2023 01:29 PM SERVICES Pathologist: Alice Sierra MD Specimen: Explant, Hardware for ID. Please save as technical services representative will pick it up. CHAIN PULLER, SPINAL CORD STIMULATOR BATTERY, REMOVAL OF- FOR GROSS IDENTIFICATION ONLY Signing Pathologist Direct Phone Line: [phone] signed by Alice Sierra MD on 03/20/2023 at 10:30 [id number] pain syndrome,Battery end of life of spinal cord stimulatorHardwareA. ExplantReceived fresh labeled with the patient's name, accession number and "hardware" is a 5.6 x 4.5 x 0.5 cm metallic duran spinal cord stimulator battery that displays the following inscription:MedtronicIntellisWith [id number] gross photograph is taken. No sections are submitted. This case is for gross examination only.JORGE Saenz, HT (ASCP)Not performedB[facility], Department of Pathology, [address] [place] [address], [place] [address], [facility], Department of Pathology, [address] [place] [address], XB, FLUORO, NON-SPECIFIC, UP TO 1 [id number] 15:29:00Reason for exam:->INSERTION INTRATHECAL PAIN PUMP [facility] PARIS HARRIS MOREIRA : 1980 Sex: MAn imaging unit was utilized for this procedure. No radiologist interpretation was requested. Refer to the EMR for findings. Refer to PACS for any patient radiation dose information.SARS-CoV2/RT-PCR (Asymptomatic ONLY)2022-05-06 08:06:12 Test Item Value Reference Interpretation Comments Range SARS-COV2/RT-PCR Negative Negative The SARS-Co V-2 (test code = target nucleic 40236-8) acids are not detected in thi s specimen. Negat robbi results do not preclude SARS-C oV-2 infection and should not be u sed as the sole bas is for patient management decisions. Nega tive results must be combined with clinical observations, patient history , and epidemiolog ical information. A false negative result may occu r if a specimen is improperly collected, transported or handled. This S ARS CoV-2 test is a rapid, real-valerio e RT-PCR test intended for e qualitative detection of nucleic acid fr om SARS-CoV-2 in a nasopharyngeal swab specimen collec mirza from individual s suspected of COVID-19 by the ir healthcare provider. ENE (test code = This test has been ENE) authorized by FDA under an EUA for use by authorized laboratories. This test is only authorized for the duration of the declaration that circumstances exist justifying the authorization of emergency use of in vitro diagnostic tests for detection and/or diagnosis of COVID-19 under Section 564(b)(1) of the Federal Food, Drug and Cosmetic Act, 21 U.S.C. 360bbb-3(b)(1), unless the authorization is terminated or revoked sooner. Fact Sheet for Healthcare Providers: https://www.theRightAPI/Documents/Xp ert%20Xpress%20SAR S%20CoV-2/Fact%20S heets/302-3802%20S ARS-COV-2%20HEALTH CARE%20PROVIDERS%2 0FACT%20SHEET.pdf Fact Sheet for Healthcare Patients: https://www.theRightAPI/Documents/Xp ert%20Xpress%20SAR S%20CoV-2/Fact%20S heets/302-3801%20S ARS-COV-2%20PATIEN T%20FACT%20SHEET.p df Lab Interpretation Normal (test code = 75726-1) [facility]2022-05-06 08:06:12 Test Item Value Reference Interpretation Comments Range SARS-COV2/RT-PCR Negative Negative The SARS-Co V-2 (test code = target nucleic 05886-5) acids are not detected in thi s specimen. Negat robbi results do not preclude SARS-C oV-2 infection and should not be u sed as the sole bas is for patient management decisions. Nega tive results must be combined with clinical observations, patient history , and epidemiolog ical information. A false negative result may occu r if a specimen is improperly collected, transported or handled. This S ARS CoV-2 test is a rapid, real-valerio e RT-PCR test intended for th e qualitative detection of nucleic acid fr om SARS-CoV-2 in a nasopharyngeal swab specimen colle mirza from individual s suspected of COVID-19 by the ir healthcare provider. ENE (test code = This test has been ENE) authorized by FDA under an EUA for use by authorized laboratories. This test is only authorized for the duration of the declaration that circumstances exist justifying the authorization of emergency use of in vitro diagnostic tests for detection and/or diagnosis of COVID-19 under Section 564(b)(1) of the Federal Food, Drug and Cosmetic Act, 21 U.S.C. 360bbb-3(b)(1), unless the authorization is terminated or revoked sooner. Fact Sheet for Healthcare Providers: https://www.theRightAPI/Documents/Xp ert%20Xpress%20SAR S%20CoV-2/Fact%20S heets/302-3802%20S ARS-COV-2%20HEALTH CARE%20PROVIDERS%2 0FACT%20SHEET.pdf Fact Sheet for Healthcare Patients: https://www.theRightAPI/Documents/Xp ert%20Xpress%20SAR S%20CoV-2/Fact%20S heets/302-3801%20S ARS-COV-2%20PATIEN T%20FACT%20SHEET.p df Lab Interpretation Normal (test code = 55497-3) [facility] 08:06:12 Test Item Value Reference Interpretation Comments Range SARS-COV2/RT-PCR Negative Negative The SARS-Co V-2 (test code = target nucleic 13809-8) acids are not detected in thi s specimen. Negat robbi results do not preclude SARS-C oV-2 infection and should not be u sed as the sole bas is for patient management decisions. Nega tive results must be combined with clinical observations, patient history , and epidemiolog ical information. A false negative result may occu r if a specimen is improperly collected, transported or handled. This S ARS CoV-2 test is a rapid, real-valerio e RT-PCR test intended for th e qualitative detection of nucleic acid fr om SARS-CoV-2 in a nasopharyngeal swab specimen collec mirza from individual s suspected of COVID-19 by the ir healthcare provider. ENE (test code = This test has been ENE) authorized by FDA under an EUA for use by authorized laboratories. This test is only authorized for the duration of the declaration that circumstances exist justifying the authorization of emergency use of in vitro diagnostic tests for detection and/or diagnosis of COVID-19 under Section 564(b)(1) of the Federal Food, Drug and Cosmetic Act, 21 U.S.C. 360bbb-3(b)(1), unless the authorization is terminated or revoked sooner. Fact Sheet for Healthcare Providers: https://www.theRightAPI/Documents/Xp ert%20Xpress%20SAR S%20CoV-2/Fact%20S heets/302-3802%20S ARS-COV-2%20HEALTH CARE%20PROVIDERS%2 0FACT%20SHEET.pdf Fact Sheet for Healthcare Patients: https://www.theRightAPI/Documents/Xp ert%20Xpress%20SAR S%20CoV-2/Fact%20S heets/302-3801%20S ARS-COV-2%20PATIEN T%20FACT%20SHEET.p df Lab Interpretation Normal (test code = 14869-2) [facility]06 08:06:12 Test Item Value Reference Interpretation Comments Range SARS-COV2/RT-PCR Negative Negative The SARS-Co V-2 (test code = target nucleic 94465-8) acids are not detected in thi s specimen. Negat robbi results do not preclude SARS-C oV-2 infection and should not be u sed as the sole bas is for patient management decisions. Nega tive results must be combined with clinical observations, patient history , and epidemiolog ical information. A false negative result may occu r if a specimen is improperly collected, transported or handled. This S ARS CoV-2 test is a rapid, real-valerio e RT-PCR test intended for th e qualitative detection of nucleic acid fr om SARS-CoV-2 in a nasopharyngeal swab specimen collec mirza from individual s suspected of COVID-19 by the ir healthcare provider. ENE (test code = This test has been ENE) authorized by FDA under an EUA for use by authorized laboratories. This test is only authorized for the duration of the declaration that circumstances exist justifying the authorization of emergency use of in vitro diagnostic tests for detection and/or diagnosis of COVID-19 under Section 564(b)(1) of the Federal Food, Drug and Cosmetic Act, 21 U.S.C. 360bbb-3(b)(1), unless the authorization is terminated or revoked sooner. Fact Sheet for Healthcare Providers: https://www.theRightAPI/Documents/Xp ert%20Xpress%20SAR S%20CoV-2/Fact%20S heets/302-3802%20S ARS-COV-2%20HEALTH CARE%20PROVIDERS%2 0FACT%20SHEET.pdf Fact Sheet for Healthcare Patients: https://www.theRightAPI/Documents/Xp ert%20Xpress%20SAR S%20CoV-2/Fact%20S heets/302-3801%20S ARS-COV-2%20PATIEN T%20FACT%20SHEET.p df Lab Interpretation Normal (test code = 35034-1) [facility]06 08:06:12 Test Item Value Reference Interpretation Comments Range SARS-COV2/RT-PCR Negative Negative The SARS-Co V-2 (test code = target nucleic 74292-8) acids are not detected in thi s specimen. Negat robbi results do not preclude SARS-C oV-2 infection and should not be u sed as the sole bas is for patient management decisions. Nega tive results must be combined with clinical observations, patient history , and epidemiolog ical information. A false negative result may occu r if a specimen is improperly collected, transported or handled. This S ARS CoV-2 test is a rapid, real-valerio e RT-PCR test intended for th e qualitative detection of nucleic acid fr om SARS-CoV-2 in a [facility] individual s suspected of COVID-19 by the ir healthcare provider. ENE (test code = This test has been ENE) authorized by FDA under an EUA for use by authorized laboratories. This test is only authorized for the duration of the declaration that circumstances exist justifying the authorization of emergency use of in vitro diagnostic tests for detection and/or diagnosis of COVID-19 under Section 564(b)(1) of the Federal Food, Drug and Cosmetic Act, 21 U.S.C. 360bbb-3(b)(1), unless the authorization is terminated or revoked sooner. Fact Sheet for Healthcare Providers: https://www.theRightAPI/Documents/Xp ert%20Xpress%20SAR S%20CoV-2/Fact%20S heets/302-3802%20S ARS-COV-2%20HEALTH CARE%20PROVIDERS%2 0FACT%20SHEET.pdf Fact Sheet for Healthcare Patients: https://www.theRightAPI/Documents/Xp ert%20Xpress%20SAR S%20CoV-2/Fact%20S heets/302-3801%20S ARS-COV-2%20PATIEN T%20FACT%20SHEET.p df Lab Interpretation Normal (test code = 75568-0) [facility]06 08:06:12 Test Item Value Reference Interpretation Comments Range SARS-COV2/RT-PCR Negative Negative The SARS-Co V-2 (test code = target nucleic 93678-8) acids are not detected in thi s specimen. Negat robbi results do not preclude SARS-C oV-2 infection and should not be u sed as the sole bas is for patient management decisions. Nega tive results must be combined with clinical observations, patient history , and epidemiolog ical information. A false negative result may occu r if a specimen is improperly collected, transported or handled. This S ARS CoV-2 test is a rapid, real-valerio e RT-PCR test intended for th e qualitative detection of nucleic acid fr om SARS-CoV-2 in a nasopharyngeal swab specimen colle mirza from individual s suspected of COVID-19 by the ir healthcare provider. ENE (test code = This test has been ENE) authorized by FDA under an EUA for use by authorized laboratories. This test is only authorized for the duration of the declaration that circumstances exist justifying the authorization of emergency use of in vitro diagnostic tests for detection and/or diagnosis of COVID-19 under Section 564(b)(1) of the Federal Food, Drug and Cosmetic Act, 21 U.S.C. 360bbb-3(b)(1), unless the authorization is terminated or revoked sooner. Fact Sheet for Healthcare Providers: https://www.theRightAPI/Documents/Xp ert%20Xpress%20SAR S%20CoV-2/Fact%20S heets/302-3802%20S ARS-COV-2%20HEALTH CARE%20PROVIDERS%2 0FACT%20SHEET.pdf Fact Sheet for Healthcare Patients: https://www.theRightAPI/Documents/Xp ert%20Xpress%20SAR S%20CoV-2/Fact%20S heets/302-3801%20S ARS-COV-2%20PATIEN T%20FACT%20SHEET.p df Lab Interpretation Normal (test code = 89507-6) [facility]22[facility]-06 08:06:12 Test Item Value Reference Interpretation Comments Range SARS-COV2/RT-PCR Negative Negative The SARS-Co V-2 (test code = target nucleic 27992-6) acids are not detected in thi s specimen. Negat robbi results do not preclude SARS-C oV-2 infection and should not be u sed as the sole bas is for patient management decisions. Nega tive results must be combined with clinical observations, patient history , and epidemiolog ical information. A false negative result may occu r if a specimen is improperly collected, transported or handled. This S ARS CoV-2 test is a rapid, real-valerio e RT-PCR test intended for th e qualitative detection of nucleic acid fr om SARS-CoV-2 in a nasopharyngeal swab specimen collec mirza from individual s suspected of COVID-19 by the ir healthcare provider. ENE (test code = This test has been ENE) authorized by FDA under an EUA for use by authorized laboratories. This test is only authorized for the duration of the declaration that circumstances exist justifying the authorization of emergency use of in vitro diagnostic tests for detection and/or diagnosis of COVID-19 under Section 564(b)(1) of the Federal Food, Drug and Cosmetic Act, 21 U.S.C. 360bbb-3(b)(1), unless the authorization is terminated or revoked sooner. Fact Sheet for Healthcare Providers: https://www.theRightAPI/Documents/Xp ert%20Xpress%20SAR S%20CoV-2/Fact%20S heets/302-3802%20S ARS-COV-2%20HEALTH CARE%20PROVIDERS%2 0FACT%20SHEET.pdf Fact Sheet for Healthcare Patients: https://www.theRightAPI/Documents/Xp ert%20Xpress%20SAR S%20CoV-2/Fact%20S heets/3023801%20S ARS-COV-2%20PATIEN T%20FACT%20SHEET.p df Lab Interpretation Normal (test code = 87149-4) [facility]22[facility]-06 08:06:12 Test Item Value Reference Interpretation Comments Range SARS-COV2/RT-PCR Negative Negative The SARS-Co V-2 (test code = target nucleic 89551-9) acids are not detected in thi s specimen. Negat robbi results do not preclude SARS-C oV-2 infection and should not be u sed as the sole bas is for patient management decisions. Nega tive results must be combined with clinical observations, patient history , and epidemiolog ical information. A false negative result may occu r if a specimen is improperly collected, transported or handled. This S ARS CoV-2 test is a rapid, real-valerio e RT-PCR test intended for th e qualitative detection of nucleic acid fr om SARS-CoV-2 in a nasopharyngeal swab specimen collec mirza from individual s suspected of COVID-19 by the ir healthcare provider. ENE (test code = This test has been ENE) authorized by FDA under an EUA for use by authorized laboratories. This test is only authorized for the duration of the declaration that circumstances exist justifying the authorization of emergency use of in vitro diagnostic tests for detection and/or diagnosis of COVID-19 under Section 564(b)(1) of the Federal Food, Drug and Cosmetic Act, 21 U.S.C. 360bbb-3(b)(1), unless the authorization is terminated or revoked sooner. Fact Sheet for Healthcare Providers: https://www.theRightAPI/Documents/Xp ert%20Xpress%20SAR S%20CoV-2/Fact%20S heets/3023802%20S ARS-COV-2%20HEALTH CARE%20PROVIDERS%2 0FACT%20SHEET.pdf Fact Sheet for Healthcare Patients: https://www.theRightAPI/Documents/Xp ert%20Xpress%20SAR S%20CoV-2/Fact%20S heets/302-3801%20S ARS-COV-2%20PATIEN T%20FACT%20SHEET.p df Lab Interpretation Normal (test code = 49604-0) [facility]22-[facility]-06 08:06:12 Test Item Value Reference Interpretation Comments Range SARS-COV2/RT-PCR Negative Negative The SARS-Co V-2 (test code = target nucleic 34638-9) acids are not detected in thi s specimen. Negat robbi results do not preclude SARS-C oV-2 infection and should not be u sed as the sole bas is for patient management decisions. Nega tive results must be combined with clinical observations, patient history , and epidemiolog ical information. A false negative result may occu r if a specimen is improperly collected, transported or handled. This S ARS CoV-2 test is a rapid, real-valerio e RT-PCR test intended for th e qualitative detection of nucleic acid fr om SARS-CoV-2 in a nasopharyngeal swab specimen colle mirza from individual s suspected of COVID-19 by the ir healthcare provider. ENE (test code = This test has been ENE) authorized by FDA under an EUA for use by authorized laboratories. This test is only authorized for the duration of the declaration that circumstances exist justifying the authorization of emergency use of in vitro diagnostic tests for detection and/or diagnosis of COVID-19 under Section 564(b)(1) of the Federal Food, Drug and Cosmetic Act, 21 U.S.C. 360bbb-3(b)(1), unless the authorization is terminated or revoked sooner. Fact Sheet for Healthcare Providers: https://www.theRightAPI/Documents/Xp ert%20Xpress%20SAR S%20CoV-2/Fact%20S heets/302-3802%20S ARS-COV-2%20HEALTH CARE%20PROVIDERS%2 0FACT%20SHEET.pdf Fact Sheet for Healthcare Patients: https://www.theRightAPI/Documents/Xp ert%20Xpress%20SAR S%20CoV-2/Fact%20S heets/302-3801%20S ARS-COV-2%20PATIEN T%20FACT%20SHEET.p df Lab Interpretation Normal (test code = 69143-1) [facility]22[facility]06 08:06:12 Test Item Value Reference Interpretation Comments Range SARS-COV2/RT-PCR Negative Negative The SARS-Co V-2 (test code = target nucleic 55024-3) acids are not detected in thi s specimen. Negat robbi results do not preclude SARS-C oV-2 infection and should not be u sed as the sole bas is for patient management decisions. Nega tive results must be combined with clinical observations, patient history , and epidemiolog ical information. A false negative result may occu r if a specimen is improperly collected, transported or handled. This S ARS CoV-2 test is a rapid, real-valerio e RT-PCR test intended for th e qualitative detection of nucleic acid fr om SARS-CoV-2 in a nasopharyngeal swab specimen collec mirza from individual s suspected of COVID-19 by the ir healthcare provider. ENE (test code = This test has been ENE) authorized by FDA under an EUA for use by authorized laboratories. This test is only authorized for the duration of the declaration that circumstances exist justifying the authorization of emergency use of in vitro diagnostic tests for detection and/or diagnosis of COVID-19 under Section 564(b)(1) of the Federal Food, Drug and Cosmetic Act, 21 U.S.C. 360bbb-3(b)(1), unless the authorization is terminated or revoked sooner. Fact Sheet for Healthcare Providers: https://www.theRightAPI/Documents/Xp ert%20Xpress%20SAR S%20CoV-2/Fact%20S heets/302-3802%20S ARS-COV-2%20HEALTH CARE%20PROVIDERS%2 0FACT%20SHEET.pdf Fact Sheet for Healthcare Patients: https://www.theRightAPI/Documents/Xp ert%20Xpress%20SAR S%20CoV-2/Fact%20S heets/302-3801%20S ARS-COV-2%20PATIEN T%20FACT%20SHEET.p df Lab Interpretation Normal (test code = 06029-0) [facility]22[facility]06 08:06:12 Test Item Value Reference Interpretation Comments Range SARS-COV2/RT-PCR Negative Negative The SARS-Co V-2 (test code = target nucleic 03205-5) acids are not detected in thi s specimen. Negat robbi results do not preclude SARS-C oV-2 infection and should not be u sed as the sole bas is for patient management decisions. Nega tive results must be combined with clinical observations, patient history , and epidemiolog ical information. A false negative result may occu r if a specimen is improperly collected, transported or handled. This S ARS CoV-2 test is a rapid, real-valerio e RT-PCR test intended for th e qualitative detection of nucleic acid fr om SARS-CoV-2 in a nasopharyngeal swab specimen collec mirza from individual s suspected of COVID-19 by the ir healthcare provider. ENE (test code = This test has been ENE) authorized by FDA under an EUA for use by authorized laboratories. This test is only authorized for the duration of the declaration that circumstances exist justifying the authorization of emergency use of in vitro diagnostic tests for detection and/or diagnosis of COVID-19 under Section 564(b)(1) of the Federal Food, Drug and Cosmetic Act, 21 U.S.C. 360bbb-3(b)(1), unless the authorization is terminated or revoked sooner. Fact Sheet for Healthcare Providers: https://www.theRightAPI/Documents/Xp ert%20Xpress%20SAR S%20CoV-2/Fact%20S heets/3023802%20S ARS-COV-2%20HEALTH CARE%20PROVIDERS%2 0FACT%20SHEET.pdf Fact Sheet for Healthcare Patients: https://www.theRightAPI/Documents/Xp ert%20Xpress%20SAR S%20CoV-2/Fact%20S heets/3023801%20S ARS-COV-2%20PATIEN T%20FACT%20SHEET.p df Lab Interpretation Normal (test code = 48556-7) [facility]2022-05-06 08:06:12 Test Item Value Reference Range Interpretation Comments SARS-COV2/RT-PCR Negative Negative The SARS-Co V-2 target (test code = nucleic acids a re not 1172379) detected in thi s specimen. Negative result s do not preclude SARS-C oV-2 infection and s hould not be used as the spencer e basis for patient managem ent decisions. Nega tive results must be combine d with clinical observ ations, patient history , and epidemiological information. A false negativ e result may occur if a spec imen is improperly leonel ected, transported or handled. This SARS CoV-2 test is a rapid, real-time RT-PC R test intended for th e qualitative detection of nu cleic acid from SARS-CoV-2 in a nasopharyngeal swab specimen collected from individuals suspected of CO VID-19 by their healthcar e provider. This test has been authorized by FDA under an EUA for use by authorized laboratories. This test is only authorized for the duration of the declaration that circumstances exist justifying the authorization of emergency use of in vitro diagnostic tests for detection and/or diagnosis of COVID-19 under Section 564(b)(1) of the Federal Food, Drug and Cosmetic Act, 21 U.S.C. 360bbb-3(b)(1), unless the authorization is terminated or revoked sooner. Fact Sheet for Healthcare Providers: https://www.[place].[employer] om/Documents/Xpert%20Xpress%20SARS%20CoV-2/Fact%20Sheets/3023802%20YBJH-IED-0%2 0HEALTHCARE%20PROVIDERS%20FACT%20SHEET.pdf Fact Sheet for Healthcare Patients: https://www.[employer]/Documents/Xpert%20X press%20SARS%20CoV-2/Fact%20Sheets/3023801%58GZYC-NBD-3%20PATIENT%20FACT%20SHEE T.pdfBASIC METABOLIC [id number] 00:31:54 Test Item Value Reference Range Interpretation Comments SODIUM (BEAKER) 138 meq/L 136-145 (test code = 381) POTASSIUM (BEAKER) 3.5 meq/L 3.5-5.1 (test code = 379) CHLORIDE (BEAKER) 102 meq/L 98-107 (test code = 382) CO2 (BEAKER) (test 26 meq/L 22-29 code = 355) BLOOD UREA NITROGEN 6 mg/dL 7-21 L (BEAKER) (test code = 354) CREATININE (BEAKER) 1.22 mg/dL 0.57-1.25 (test code = 358) GLUCOSE RANDOM 97 mg/dL 70-105 (BEAKER) (test code = 652) CALCIUM (BEAKER) 8.7 mg/dL 8.4-10.2 (test code = 697) EGFR (BEAKER) (test 80 mL/min/1.73 ESTIMA MIRZA GFR IS code = 1092) sq m NOT ACCURATE CREATININE CLEARANCE IN PREDICTING GLOMERULAR FILTRATION RATE . ESTIMATED GFR I S NOT APPLICABLE FOR DIALYSIS PATIEN TS. Billing Spec ID - NORM [facility] W/PLT COUNT & AUTO [id number] 00:17:11 Test Item Value Reference Range Interpretation Comments WHITE BLOOD CELL COUNT (BEAKER) 6.3 K/ L 3.5-10.5 (test code = 775) RED BLOOD CELL COUNT (BEAKER) 5.20 M/ L 4.63-6.08 (test code = 761) HEMOGLOBIN (BEAKER) (test code = 14.4 GM/DL 13.7-17.5 410) HEMATOCRIT (BEAKER) (test code = 47.2 % 40.1-51.0 411) MEAN CORPUSCULAR VOLUME (BEAKER) 90.8 fL 79.0-92.2 (test code = 753) MEAN CORPUSCULAR HEMOGLOBIN 27.7 pg 25.7-32.2 (BEAKER) (test code = 751) MEAN CORPUSCULAR HEMOGLOBIN CONC 30.5 GM/DL 32.3-36.5 L (BEAKER) (test code = 752) RED CELL DISTRIBUTION WIDTH 13.6 % 11.6-14.4 (BEAKER) (test code = 412) PLATELET COUNT (BEAKER) (test 214 K/CU MM 150-450 code = 756) MEAN PLATELET VOLUME (BEAKER) 10.9 fL 9.4-12.4 (test code = 754) NUCLEATED RED BLOOD CELLS 0 /100 WBC 0-0 (BEAKER) (test code = 413) NEUTROPHILS RELATIVE PERCENT 75 % (BEAKER) (test code = 429) LYMPHOCYTES RELATIVE PERCENT 18 % (BEAKER) (test code = 430) MONOCYTES RELATIVE PERCENT 6 % (BEAKER) (test code = 431) EOSINOPHILS RELATIVE PERCENT 0 % (BEAKER) (test code = 432) BASOPHILS RELATIVE PERCENT 0 % (BEAKER) (test code = 437) NEUTROPHILS ABSOLUTE COUNT 4.74 K/ L 1.78-5.38 (BEAKER) (test code = 670) LYMPHOCYTES ABSOLUTE COUNT 1.14 K/ L 1.32-3.57 L (BEAKER) (test code = 414) MONOCYTES ABSOLUTE COUNT (BEAKER) 0.35 K/ L 0.30-0.82 (test code = 415) EOSINOPHILS ABSOLUTE COUNT 0.01 K/ L 0.04-0.54 L (BEAKER) (test code = 416) BASOPHILS ABSOLUTE COUNT (BEAKER) 0.02 K/ L 0.01-0.08 (test code = 417) IMMATURE GRANULOCYTES-RELATIVE 0 % 0-1 PERCENT (BEAKER) (test code = 2801) Urinalysis w/Microscopic + Reflex to [id number] 11:14:22 Test Item Value Reference Range Interpretation Comments Color, UA (test code Yellow = 5778-6) Clarity, UA (test Clear code = 5767-9) Specific [place], UA 1.028 1.001-1.035 (test code = 5811-5) pH, UA (test code = 7.0 5.0-8.0 5803-2) Protein, UA (test 10 mg/dL Negative A code = 12875-6) Glucose, UA (test Negative Negative code = 365) Ketones, UA (test Negative Negative code = 2514-8) Bilirubin, UA (test Negative Negative code = 85891-3) Blood, UA (test code Negative Negative = 07901-4) Nitrite, UA (test Negative Negative code = 5802-4) Leukocytes, UA (test Negative Negative code = 5799-2) Urobilinogen, UA 2.0 mg/dL 0.2-1.0 H (test code = 26064-2) RBC, UA (test code = 1 See_Comment [Autom ated 92757-3) message] The system which generated this result transmit mirza reference range : /HPF. The reference range was not used to interpret this result as normal/abnormal . WBC, UA (test code = <1 See_Comment [Autom ated 5821-4) message] The system which generated this result transmit mirza reference range : /HPF. The reference range was not used to interpret this result as normal/abnormal . Bacteria, UA (test None Seen code = 92194-0) Mucus (test code = Rare 8247-9) Crystals, Urine (test None Seen code = 88191-1) Specimen Source (test code = 2795) ENE (test code = ENE) Billing Spec ID - [auto]Billing Spec ID - tech Lab Interpretation Abnormal (test code = 31355-6) [facility] Culture 2022-04-26 11:14:22 Test Item Value Reference Range Interpretation Comments Color, UA (test code Yellow = 5778-6) Clarity, UA (test Clear code = 5767-9) Specific [place], UA 1.028 1.001-1.035 (test code = 5811-5) pH, UA (test code = 7.0 5.0-8.0 5803-2) Protein, UA (test 10 mg/dL Negative A code = 88060-5) Glucose, UA (test Negative Negative code = 365) Ketones, UA (test Negative Negative code = 2514-8) Bilirubin, UA (test Negative Negative code = 53354-6) Blood, UA (test code Negative Negative = 83970-9) Nitrite, UA (test Negative Negative code = 5802-4) Leukocytes, UA (test Negative Negative code = 5799-2) Urobilinogen, UA 2.0 mg/dL 0.2-1.0 H (test code = 34765-4) RBC, UA (test code = 1 See_Comment [Autom ated 02344-9) message] The system which generated this result transmit mirza reference range : /HPF. The reference range was not used to interpret this result as normal/abnormal . WBC, UA (test code = <1 See_Comment [Autom ated 5821-4) message] The system which generated this result transmit mirza reference range : /HPF. The reference range was not used to interpret this result as normal/abnormal . Bacteria, UA (test None Seen code = 55890-9) Mucus (test code = Rare 8247-9) Crystals, Urine (test None Seen code = 45370-6) Specimen Source (test code = 2795) ENE (test code = ENE) Billing Spec ID - [auto]Billing Spec ID - tech Lab Interpretation Abnormal (test code = 97928-1) [facility] 2022-04-26 11:14:22 Test Item Value Reference Range Interpretation Comments Color, UA (test code Yellow = 5778-6) Clarity, UA (test Clear code = 5767-9) Specific [place], UA 1.028 1.001-1.035 (test code = 5811-5) pH, UA (test code = 7.0 5.0-8.0 5803-2) Protein, UA (test 10 mg/dL Negative A code = 06233-4) Glucose, UA (test Negative Negative code = 365) Ketones, UA (test Negative Negative code = 2514-8) Bilirubin, UA (test Negative Negative code = 16435-1) Blood, UA (test code Negative Negative = 13905-4) Nitrite, UA (test Negative Negative code = 5802-4) Leukocytes, UA (test Negative Negative code = 5799-2) Urobilinogen, UA 2.0 mg/dL 0.2-1.0 H (test code = 62365-9) RBC, UA (test code = 1 See_Comment [Autom ated 88596-2) message] The system which generated this result transmit mirza reference range : /HPF. The reference range was not used to interpret this result as normal/abnormal . WBC, UA (test code = <1 See_Comment [Autom ated 5821-4) message] The system which generated this result transmit mirza reference range : /HPF. The reference range was not used to interpret this result as normal/abnormal . Bacteria, UA (test None Seen code = 75331-7) Mucus (test code = Rare 8247-9) Crystals, Urine (test None Seen code = 27352-9) Specimen Source (test code = 2795) ENE (test code = ENE) Billing Spec ID - [auto]Billing Spec ID - tech Lab Interpretation Abnormal (test code = 56926-5) [facility] Culture 2022-04-26 11:14:22 Test Item Value Reference Range Interpretation Comments Color, UA (test code Yellow = 5778-6) Clarity, UA (test Clear code = 5767-9) Specific [place], UA 1.028 1.001-1.035 (test code = 5811-5) pH, UA (test code = 7.0 5.0-8.0 5803-2) Protein, UA (test 10 mg/dL Negative A code = 13596-3) Glucose, UA (test Negative Negative code = 365) Ketones, UA (test Negative Negative code = 2514-8) Bilirubin, UA (test Negative Negative code = 50572-2) Blood, UA (test code Negative Negative = 99028-3) Nitrite, UA (test Negative Negative code = 5802-4) Leukocytes, UA (test Negative Negative code = 5799-2) Urobilinogen, UA 2.0 mg/dL 0.2-1.0 H (test code = 75062-5) RBC, UA (test code = 1 See_Comment [Autom ated 47150-7) message] The system which generated this result transmit mirza reference range : /HPF. The reference range was not used to interpret this result as normal/abnormal . WBC, UA (test code = <1 See_Comment [Autom ated 5821-4) message] The system which generated this result transmit mirza reference range : /HPF. The reference range was not used to interpret this result as normal/abnormal . Bacteria, UA (test None Seen code = 86069-1) Mucus (test code = Rare 8247-9) Crystals, Urine (test None Seen code = 48944-0) Specimen Source (test code = 2795) ENE (test code = ENE) Billing Spec ID - [auto]Billing Spec ID - tech Lab Interpretation Abnormal (test code = 38027-4) [facility] Culture 2022-04-26 11:14:22 Test Item Value Reference Range Interpretation Comments Color, UA (test code Yellow = 5778-6) Clarity, UA (test Clear code = 5767-9) Specific [place], UA 1.028 1.001-1.035 (test code = 5811-5) pH, UA (test code = 7.0 5.0-8.0 5803-2) Protein, UA (test 10 mg/dL Negative A code = 32655-3) Glucose, UA (test Negative Negative code = 365) Ketones, UA (test Negative Negative code = 2514-8) Bilirubin, UA (test Negative Negative code = 53205-1) Blood, UA (test code Negative Negative = 94407-5) Nitrite, UA (test Negative Negative code = 5802-4) Leukocytes, UA (test Negative Negative code = 5799-2) Urobilinogen, UA 2.0 mg/dL 0.2-1.0 H (test code = 65840-6) RBC, UA (test code = 1 See_Comment [Autom ated 64772-2) message] The system which generated this result transmit mirza reference range : /HPF. The reference range was not used to interpret this result as normal/abnormal . WBC, UA (test code = <1 See_Comment [Autom ated 5821-4) message] The system which generated this result transmit mirza reference range : /HPF. The reference range was not used to interpret this result as normal/abnormal . Bacteria, UA (test None Seen code = 85373-7) Mucus (test code = Rare 8247-9) Crystals, Urine (test None Seen code = 00288-9) Specimen Source (test code = 2795) ENE (test code = ENE) Billing Spec ID - [auto]Billing Spec ID - tech Lab Interpretation Abnormal (test code = 51119-4) [facility] Culture 2022-04-26 11:14:22 Test Item Value Reference Range Interpretation Comments Color, UA (test code Yellow = 5778-6) Clarity, UA (test Clear code = 5767-9) Specific [place], UA 1.028 1.001-1.035 (test code = 5811-5) pH, UA (test code = 7.0 5.0-8.0 5803-2) Protein, UA (test 10 mg/dL Negative A code = 01459-6) Glucose, UA (test Negative Negative code = 365) Ketones, UA (test Negative Negative code = 2514-8) Bilirubin, UA (test Negative Negative code = 40754-4) Blood, UA (test code Negative Negative = 54957-8) Nitrite, UA (test Negative Negative code = 5802-4) Leukocytes, UA (test Negative Negative code = 5799-2) Urobilinogen, UA 2.0 mg/dL 0.2-1.0 H (test code = 06337-1) RBC, UA (test code = 1 See_Comment [Autom ated 36581-8) message] The system which generated this result transmit mirza reference range : /HPF. The reference range was not used to interpret this result as normal/abnormal . WBC, UA (test code = <1 See_Comment [Autom ated 5821-4) message] The system which generated this result transmit mirza reference range : /HPF. The reference range was not used to interpret this result as normal/abnormal . Bacteria, UA (test None Seen code = 01322-8) Mucus (test code = Rare 8247-9) Crystals, Urine (test None Seen code = 26530-7) Specimen Source (test code = 2795) ENE (test code = NEE) Billing Spec ID - [auto]Billing Spec ID - tech Lab Interpretation Abnormal (test code = 14767-2) [facility] Reflex [facility] Culture 2022-04-26 11:14:22 Test Item Value Reference Range Interpretation Comments Color, UA (test code Yellow = 5778-6) Clarity, UA (test Clear code = 5767-9) Specific [place], UA 1.028 1.001-1.035 (test code = 5811-5) pH, UA (test code = 7.0 5.0-8.0 5803-2) Protein, UA (test 10 mg/dL Negative A code = 34962-8) Glucose, UA (test Negative Negative code = 365) Ketones, UA (test Negative Negative code = 2514-8) Bilirubin, UA (test Negative Negative code = 51393-1) Blood, UA (test code Negative Negative = 98657-3) Nitrite, UA (test Negative Negative code = 5802-4) Leukocytes, UA (test Negative Negative code = 5799-2) Urobilinogen, UA 2.0 mg/dL 0.2-1.0 H (test code = 57555-4) RBC, UA (test code = 1 See_Comment [Autom ated 29394-0) message] The system which generated this result transmit mirza reference range : /HPF. The reference range was not used to interpret this result as normal/abnormal . WBC, UA (test code = <1 See_Comment [Autom ated 5821-4) message] The system which generated this result transmit mirza reference range : /HPF. The reference range was not used to interpret this result as normal/abnormal . Bacteria, UA (test None Seen code = 66393-8) Mucus (test code = Rare 8247-9) Crystals, Urine (test None Seen code = 27817-5) Specimen Source (test code = 2795) ENE (test code = ENE) Billing Spec ID - [auto]Billing Spec ID - tech Lab Interpretation Abnormal (test code = 24085-6) [facility] Reflex [facility] Culture 2022-04-26 11:14:22 Test Item Value Reference Range Interpretation Comments Color, UA (test code Yellow = 5778-6) Clarity, UA (test Clear code = 5767-9) Specific [place], UA 1.028 1.001-1.035 (test code = 5811-5) pH, UA (test code = 7.0 5.0-8.0 5803-2) Protein, UA (test 10 mg/dL Negative A code = 66633-5) Glucose, UA (test Negative Negative code = 365) Ketones, UA (test Negative Negative code = 2514-8) Bilirubin, UA (test Negative Negative code = 22100-0) Blood, UA (test code Negative Negative = 41846-8) Nitrite, UA (test Negative Negative code = 5802-4) Leukocytes, UA (test Negative Negative code = 5799-2) Urobilinogen, UA 2.0 mg/dL 0.2-1.0 H (test code = 00231-4) RBC, UA (test code = 1 See_Comment [Autom ated 59954-9) message] The system which generated this result transmit mirza reference range : /HPF. The reference range was not used to interpret this result as normal/abnormal . WBC, UA (test code = See_Comment [Autom ated 5821-4) message] The system which generated this result transmit mirza reference range : /HPF. The reference range was not used to interpret this result as normal/abnormal . Bacteria, UA (test None Seen code = 44623-9) Mucus (test code = Rare 8247-9) Crystals, Urine (test None Seen code = 43270-4) Specimen Source (test code = 2795) ENE (test code = ENE) Billing Spec ID - [auto]Billing Spec ID - tech Lab Interpretation Abnormal (test code = 79255-4) [facility] Reflex [facility] Culture 2022-04-26 11:14:22 Test Item Value Reference Range Interpretation Comments Color, UA (test code Yellow = 5778-6) Clarity, UA (test Clear code = 5767-9) Specific [place], UA 1.028 1.001-1.035 (test code = 5811-5) pH, UA (test code = 7.0 5.0-8.0 5803-2) Protein, UA (test 10 mg/dL Negative A code = 12331-0) Glucose, UA (test Negative Negative code = 365) Ketones, UA (test Negative Negative code = 2514-8) Bilirubin, UA (test Negative Negative code = 79404-1) Blood, UA (test code Negative Negative = 94378-4) Nitrite, UA (test Negative Negative code = 5802-4) Leukocytes, UA (test Negative Negative code = 5799-2) Urobilinogen, UA 2.0 mg/dL 0.2-1.0 H (test code = 26561-4) RBC, UA (test code = 1 See_Comment [Autom ated 99688-4) message] The system which generated this result transmit mirza reference range : /HPF. The reference range was not used to interpret this result as normal/abnormal . WBC, UA (test code = See_Comment [Autom ated 5821-4) message] The system which generated this result transmit mirza reference range : /HPF. The reference range was not used to interpret this result as normal/abnormal . Bacteria, UA (test None Seen code = 84907-6) Mucus (test code = Rare 8247-9) Crystals, Urine (test None Seen code = 89164-7) Specimen Source (test code = 2795) ENE (test code = ENE) Billing Spec ID - [auto]Billing Spec ID - tech Lab Interpretation Abnormal (test code = 40058-5) [facility] Reflex [facility] Culture 2022-04-26 11:14:22 Test Item Value Reference Range Interpretation Comments Color, UA (test code Yellow = 5778-6) Clarity, UA (test Clear code = 5767-9) Specific [place], UA 1.028 1.001-1.035 (test code = 5811-5) pH, UA (test code = 7.0 5.0-8.0 5803-2) Protein, UA (test 10 mg/dL Negative A code = 24268-3) Glucose, UA (test Negative Negative code = 365) Ketones, UA (test Negative Negative code = 2514-8) Bilirubin, UA (test Negative Negative code = 04251-1) Blood, UA (test code Negative Negative = 60289-3) Nitrite, UA (test Negative Negative code = 5802-4) Leukocytes, UA (test Negative Negative code = 5799-2) Urobilinogen, UA 2.0 mg/dL 0.2-1.0 H (test code = 72732-0) RBC, UA (test code = 1 See_Comment [Autom ated 33704-5) message] The system which generated this result transmit mirza reference range : /HPF. The reference range was not used to interpret this result as normal/abnormal . WBC, UA (test code = See_Comment [Autom ated 5821-4) message] The system which generated this result transmit mirza reference range : /HPF. The reference range was not used to interpret this result as normal/abnormal . Bacteria, UA (test None Seen code = 49765-7) Mucus (test code = Rare 8247-9) Crystals, Urine (test None Seen code = 50071-5) Specimen Source (test code = 2795) ENE (test code = ENE) Billing Spec ID - [auto]Billing Spec ID - tech Lab Interpretation Abnormal (test code = 22433-9) [facility] [id number] 11:14:22 Test Item Value Reference Range Interpretation Comments COLOR (BEAKER) (test code = 470) Yellow CLARITY (BEAKER) (test code = 469) Clear SPECIFIC GRAVITY UA (BEAKER) (test 1.028 1.001-1.035 code = 468) PH UA (BEAKER) (test code = 467) 7.0 5.0-8.0 PROTEIN UA (BEAKER) (test code = [...] = 466) UROBILINOGEN UA (BEAKER) (test code 2.0 mg/dL 0.2-1.0 H = 463) RBC UA (BEAKER) (test code = 519) 1 /HPF WBC UA (BEAKER) (test code = 520) < /HPF BACTERIA (BEAKER) (test code = 517) None Seen MUCUS (BEAKER) (test code = 1574) Rare CRYSTALS, URINE (BEAKER) (test code None Seen = 1521) SOURCE(BEAKER) (test code = 2795) Billing Spec ID - [auto]Billing Spec ID - techBASIC METABOLIC [id number] 11:12:07 Test Item Value Reference Range Interpretation Comments SODIUM (BEAKER) 142 meq/L 136-145 (test code = 381) POTASSIUM (BEAKER) 4.2 meq/L 3.5-5.1 (test code = 379) CHLORIDE (BEAKER) 105 meq/L 98-107 (test code = 382) CO2 (BEAKER) (test 29 meq/L 22-29 code = 355) BLOOD UREA NITROGEN 14 mg/dL 7-21 (BEAKER) (test code = 354) CREATININE (BEAKER) 1.18 mg/dL 0.57-1.25 (test code = 358) GLUCOSE RANDOM 117 mg/dL 70-105 H (BEAKER) (test code = 652) CALCIUM (BEAKER) 8.6 mg/dL 8.4-10.2 (test code = 697) EGFR (BEAKER) (test 83 mL/min/1.73 ESTIMA MIRZA GFR IS code = 1092) sq m NOT ACCURATE CREATININE CLEARANCE IN PREDICTING GLOMERULAR FILTRATION RATE . ESTIMATED GFR I S NOT APPLICABLE FOR DIALYSIS PATIEN TS. Billing Spec ID - [id number] 11:11:27 Test Item Value Reference Range Interpretation Comments PARTIAL THROMBOPLASTIN TIME 31.2 seconds 22.5-36.0 (BEAKER) (test code = 760) PROTHROMBIN TIME/[id number] 11:10:46 Test Item Value Reference Range Interpretation Comments PROTIME (BEAKER) 13.1 seconds 11.9-14.2 (test code = 759) INR (BEAKER) (test 1.01 See_Comment [Automat ed message] code = 370) The system [employer] generated this result transmitted ref erence range: <=5.90. The reference range was not used to int erpret this result as normal/abnormal . RECOMMENDED COUMADIN/WARFARIN INR THERAPY RANGESSTANDARD DOSE: 2.0 - 3.0 Includes: PROPHYLAXIS for venous thrombosis, systemic embolization; TREATMENT for venous thrombosis and/or pulmonary embolus.HIGH RISK: Target INR is 2.5-3.5 for patients with mechanical heart valves.CBC W/PLT COUNT & AUTO [id number] 10:53:19 Test Item Value Reference Range Interpretation Comments WHITE BLOOD CELL COUNT (BEAKER) 4.8 K/ L 3.5-10.5 (test code = 775) RED BLOOD CELL COUNT (BEAKER) 5.07 M/ L 4.63-6.08 (test code = 761) HEMOGLOBIN (BEAKER) (test code = 14.2 GM/DL 13.7-17.5 410) HEMATOCRIT (BEAKER) (test code = 46.5 % 40.1-51.0 411) MEAN CORPUSCULAR VOLUME (BEAKER) 91.7 fL 79.0-92.2 (test code = 753) MEAN CORPUSCULAR HEMOGLOBIN 28.0 pg 25.7-32.2 (BEAKER) (test code = 751) MEAN CORPUSCULAR HEMOGLOBIN CONC 30.5 GM/DL 32.3-36.5 L (BEAKER) (test code = 752) RED CELL DISTRIBUTION WIDTH 14.2 % 11.6-14.4 (BEAKER) (test code = 412) PLATELET COUNT (BEAKER) (test 212 K/CU MM 150-450 code = 756) MEAN PLATELET VOLUME (BEAKER) 10.9 fL 9.4-12.4 (test code = 754) NUCLEATED RED BLOOD CELLS 0 /100 WBC 0-0 (BEAKER) (test code = 413) NEUTROPHILS RELATIVE PERCENT 68 % (BEAKER) (test code = 429) LYMPHOCYTES RELATIVE PERCENT 22 % (BEAKER) (test code = 430) MONOCYTES RELATIVE PERCENT 9 % (BEAKER) (test code = 431) EOSINOPHILS RELATIVE PERCENT 1 % (BEAKER) (test code = 432) BASOPHILS RELATIVE PERCENT 0 % (BEAKER) (test code = 437) NEUTROPHILS ABSOLUTE COUNT 3.24 K/ L 1.78-5.38 (BEAKER) (test code = 670) LYMPHOCYTES ABSOLUTE COUNT 1.06 K/ L 1.32-3.57 L (BEAKER) (test code = 414) MONOCYTES ABSOLUTE COUNT (BEAKER) 0.43 K/ L 0.30-0.82 (test code = 415) EOSINOPHILS ABSOLUTE COUNT 0.04 K/ L 0.04-0.54 (BEAKER) (test code = 416) BASOPHILS ABSOLUTE COUNT (BEAKER) 0.01 K/ L 0.01-0.08 (test code = 417) IMMATURE GRANULOCYTES-RELATIVE 0 % 0-1 PERCENT (BEAKER) (test code = 2801) RAD, SPINE, THORACIC, 2 [id number] 05:53:00Reason for exam:->s/p paddle SCS placement evaluation, lead fracture or migration [facility] H[facility] LILLIE : 1980 Sex: MFINAL REPORT EXAM/TECHNIQUE: RAD, SPINE, THORACIC, 2 VIEWS INDICATION: Spinal cord similar pattern. Evaluation for lead fracture or migration. COMPARISON: Lumbar radiography from 01/14/2022. Chest radiography from 02/13/2022. FINDINGS: Spinal cord stimulator is present in the posterior right subcutaneous tissue with intact leads entering the spinal canal at T8-T9 with the paddles extending from T7 to T9. Visualized lungs are clear. Impression: Spinal cord stimulator leads appear intact with paddles ranging from the levels of T7-T9. Signed: Beni More MDReport Verified Date/Time: 04/22/2022 05:53:32 URINALYSIS W/ REFLEX URINE [id number] 02:28:18 Test Item Value Reference Range Interpretation Comments COLOR (BEAKER) (test code = 470) [place] CLARITY (BEAKER) (test code = 469) Clear SPECIFIC GRAVITY UA (BEAKER) (test 1.012 1.001-1.035 code = 468) PH UA (BEAKER) (test code = 467) 6.0 5.0-8.0 PROTEIN UA (BEAKER) (test code = 50 mg/dL Negative A 464) GLUCOSE UA (BEAKER) (test code = Negative Negative 365) KETONES UA (BEAKER) (test code = Negative Negative 371) BILIRUBIN UA (BEAKER) (test code = Negative Negative 462) BLOOD UA (BEAKER) (test code = 461) Large Negative A NITRITE UA (BEAKER) (test code = Negative Negative 465) LEUKOCYTE ESTERASE UA (BEAKER) Small Negative A (test code = 466) UROBILINOGEN UA (BEAKER) (test code 0.2 mg/dL 0.2-1.0 = 463) RBC UA (BEAKER) (test code = 519) > /HPF WBC UA (BEAKER) (test code = 520) 4 /HPF BACTERIA (BEAKER) (test code = 517) None Seen MUCUS (BEAKER) (test code = 1574) Rare SQUAMOUS EPITHELIAL (BEAKER) (test < /HPF code = 516) CALCIUM OXALATE CRYSTALS (BEAKER) Rare (test code = 518) SOURCE(BEAKER) (test code = 2795) Billing Spec ID - [auto]COMPREHENSIVE METABOLIC [id number] 01:34:37 Test Item Value Reference Range Interpretation Comments TOTAL PROTEIN 7.0 gm/dL 6.0-8.3 Specimen sligh tly (BEAKER) (test code = hemoly zed 770) ALBUMIN (BEAKER) 3.7 g/dL 3.5-5.0 Specimen sl ightly (test code = 1145) hemolyzed ALKALINE PHOSPHATASE 70 U/L 40-150 (BEAKER) (test code = 346) BILIRUBIN TOTAL 0.3 mg/dL 0.2-1.2 Specimen sli ghtly (BEAKER) (test code = hemoly zed 377) SODIUM (BEAKER) (test 138 meq/L 136-145 code = 381) POTASSIUM (BEAKER) 3.8 meq/L 3.5-5.1 Specimen slightly (test code = 379) hemolyzed CHLORIDE (BEAKER) 106 meq/L 98-107 (test code = 382) CO2 (BEAKER) (test 23 meq/L 22-29 code = 355) BLOOD UREA NITROGEN 7 mg/dL 7-21 (BEAKER) (test code = 354) CREATININE (BEAKER) 1.15 mg/dL 0.57-1.25 Specimen slightly (test code = 358) hemolyzed GLUCOSE RANDOM 88 mg/dL 70-105 (BEAKER) (test code = 652) CALCIUM (BEAKER) 8.9 mg/dL 8.4-10.2 (test code = 697) AST (SGOT) (BEAKER) 15 U/L 5-34 Specimen slightly (test code = 353) hemolyzed ALT (SGPT) (BEAKER) 13 U/L 6-55 Specimen slightly (test code = 347) hemolyzed EGFR (BEAKER) (test 86 mL/min/1.73 ESTIMA MIRZA GFR IS code = 1092) sq m NOT ACCURATE CREATININE CLEARANCE IN PREDICTING GLOMERULAR FILTRATION RATE . ESTIMATED GFR I S NOT APPLICABLE FOR DIALYSIS PATIEN TS. Billing Spec ID - BSCBC W/PLT COUNT & AUTO [id number] 00:22:02 Test Item Value Reference Range Interpretation Comments WHITE BLOOD CELL COUNT (BEAKER) 9.3 K/ L 3.5-10.5 (test code = 775) RED BLOOD CELL COUNT (BEAKER) 5.41 M/ L 4.63-6.08 (test code = 761) HEMOGLOBIN (BEAKER) (test code = 14.6 GM/DL 13.7-17.5 410) HEMATOCRIT (BEAKER) (test code = 47.5 % 40.1-51.0 411) MEAN CORPUSCULAR VOLUME (BEAKER) 87.8 fL 79.0-92.2 (test code = 753) MEAN CORPUSCULAR HEMOGLOBIN 27.0 pg 25.7-32.2 (BEAKER) (test code = 751) MEAN CORPUSCULAR HEMOGLOBIN CONC 30.7 GM/DL 32.3-36.5 L (BEAKER) (test code = 752) RED CELL DISTRIBUTION WIDTH 13.8 % 11.6-14.4 (BEAKER) (test code = 412) PLATELET COUNT (BEAKER) (test 300 K/CU MM 150-450 code = 756) MEAN PLATELET VOLUME (BEAKER) 9.8 fL 9.4-12.4 (test code = 754) NUCLEATED RED BLOOD CELLS 0 /100 WBC 0-0 (BEAKER) (test code = 413) NEUTROPHILS RELATIVE PERCENT 72 % (BEAKER) (test code = 429) LYMPHOCYTES RELATIVE PERCENT 19 % (BEAKER) (test code = 430) MONOCYTES RELATIVE PERCENT 6 % (BEAKER) (test code = 431) EOSINOPHILS RELATIVE PERCENT 2 % (BEAKER) (test code = 432) BASOPHILS RELATIVE PERCENT 0 % (BEAKER) (test code = 437) NEUTROPHILS ABSOLUTE COUNT 6.72 K/ L 1.78-5.38 H (BEAKER) (test code = 670) LYMPHOCYTES ABSOLUTE COUNT 1.80 K/ L 1.32-3.57 (BEAKER) (test code = 414) MONOCYTES ABSOLUTE COUNT (BEAKER) 0.55 K/ L 0.30-0.82 (test code = 415) EOSINOPHILS ABSOLUTE COUNT 0.16 K/ L 0.04-0.54 (BEAKER) (test code = 416) BASOPHILS ABSOLUTE COUNT (BEAKER) 0.03 K/ L 0.01-0.08 (test code = 417) IMMATURE GRANULOCYTES-RELATIVE 0 % 0-1 PERCENT (BEAKER) (test code = 2801) Tissue [id number] 22:06:37 Test Item Value Reference Range Interpretation Comments Case Report (test code Surgical Pathology = 104) Report Case: [id number] Authorizing Provider: Eduardo Calderon MD Collected: 02/27/2022 01:55 PM Ordering Location: [facility] Received: 02/28/2022 08:53 AM SERVICES Pathologist: Whitney Cortés MD Specimen: Explant, previous leads DIAGNOSIS (test code = [id number]) FuZzEwMzNcZnRuYmpcdWMx IHtccnRmMVxlcGljOTYwMV lajrCpASVjzZWzX2Kunryt PPgpPT2gYZ1coBeohFPkfV JnGNQmXkPth1wse500yQEf p4fhRYDVqzbktEf2fNscA3 7at1C6YfylZ83siPUhQLC3 ZQBlKIYvpMQoSYTjZUS2TQ ZelGGuW2zuQECsKQ4imgpd YImoYUkmAIPhrAR5MROlmK MvW3YcJUIuKRntFJRcgfu3 CiYiTg9jgBZoyVitVEdaUG JkXHBsYWluXGZzMjAgTUVE JNYMTLOBZZVAR8HwNGXBWI 9JQULPC2HGZGFTIV1QNgOS XGxpbmUgICAgICAgICAgIC QjJX7XEt3OExFWROIVWPmV SUNBVElPTiBPTkxZIChQTE QTX4FaF1PIOArKQ4AOSDIJ D6GWZNEQZV0JVXkoVZU1u9 xydGYxXHNzdGUxODAwMFxh bnNpXGRlZmxhbmcxMDMzXG J1sqXhMUEfDZvtQCKeISbx Kw5taKWqvJhmUlYxUIAmp0 tdpgDOgjqjcNd7t9zyAOIk XdI1dBCwJEkuS3xbcfQtdV UyOKOfIWm4oY96RDBfeP0e sUGfPYwvbqYiBuU0XOxxWC PiHiT8PJOpgCBaGCBhV2yd ZWQwXGdyZWVuMFxibHVlMC V9uOhve0Y6oKKelRVckDlq AkIoVrRfEnVBq2PtUDx2sZ fqT4JmTHDrVaS6lUItSXSr TEehALDfAOGshjO8uA00UP bsgiQ1xGSqj2Uwm79dz800 pG7xtGDhHWF0AXYlWBInzN RlRSVsXQC6HUHwzYWoI5gc TDZiNE5yhqmyUIdhVAajGW SpvIZ6EJYsePDiM8XwFVSi NUdzKUAybob8RbTdTx5gjK DxiUjbILmbq7hds7tzgXKk Zaz1MRHwKhAuQgumYAzzl4 Lvn8opOIXleu4oRYL6rTTn eXkvk8J7dJRkYIVhuPFsAL IvHV8djKVeYOYnaT4vxabe XHBnYnJkcmhlYWRccGdicm BlHp2xfLntPUS9KAvoM5dj qP2nGnJ8QYiaD8aqeB5sMH v5NMiuFLQpmZV0oqO8NGDc qJGhD3KpqX8qYPCuZX4cfi i3s0wxNYD9ZOanPMWyWcS1 soV7KZQqmMRaNCJnoYghXO msg386DMY2PiLsJXOty6Dx V5IcjPqoU49leOcwG46vSW RhuKjdiD6lpXzviX0cMdUl UzKfSLsrtXdzFQ6bRPCeS9 ixhWWaYUMtRMCcA4lzGbGh oH6kyXsrMGtczrMrVWQcZy d9LTDgvAKrZBShJex7OABu MNWrP79dlcenNYL6gS3xb8 jqk3YjAGhwIFK4CCNki36x PXxcotR7XBxtKr09FNxhGD F7LVstDYQ3aG== CPT Code(s) (test code e0hnnNMiCOPwsTX3JjFhSB = 3357) Lkh7awf7IboNXowXSoPSqu mZZyifKooi89jMZ9mU31AU 8wLSDvZnV5WLXkumH3Ziy2 MECoPJMcwOYoH183o6yhq1 clcbZwbFZ6uTfyVUYkcock JfT7USmbGFTurqalPHk0EC dtPNCenOP4KJKuaLTdK8Lq LAEgOU8nqvd2JDD7QBwfFF SxVwO7KPQneOQmJJJypQqz DPwkv966TDO1BxUnLJTqau OloBzglZ7kTiFuOIM2FPXh MFxwYXJ9 GROSS DESCRIPTION (test r7smaVZySKPceDLLANAnKd code = [id number]) uerkVsTGNmbNKaF0Olqgnx OTzpWB9pGR7waNitoPRfqX AnSP3DUTUySlZxHPCdsZLg gkVfUdQuORNxzYDyrFE1LS UoMM9cgkhkVQasEVkfNOIp jkC0DYTanLMxW1JtWKGaVF 2lpkviPVM1MSztoZ4quvSB BepvFe3chXHomZfhHiUnNz NoYXJzZXQwXGZuaWwgQXJp MNe3lY6OWysoPYZ3YYXWOj rwXVWhYF8Rq6dtXNJkeMEw MUZ7CFmrjVHkZDDgCJXuMM i4MTIcABfvlYTrCZ2shSct FaurdXjyn2SlwLPuVMsjQS FiPXYsVBnzXYIgPY7BMcQy PJhJZIK9Gxf8QvL9XPd8KM AAZoLyDzSkQfgoBEO2XXOg BJj0OKq6SKmTJtO8JED6LD NiRZVjEQTlOjNuHCb6TTTh XFxmIEFyaWFsIFxcZmwgXF sjQ94nlMcgcA3bKI9dOMdp rDJbnF9gwZMnCW2RIEZkkB ISRRO4HL0cZPTQAkgmzFNg LCTgwXdzQSnnuV9aPC5TID c1dcZyWAKkBdOkCyCxDVd5 UDAvKvMhc6syiUUgBMupZU N9zGHjZKOznPzoxlNsegDi CG1hYQCbL4Rgj6jhunMjtU 0lEHNgPB6uIMMbgUCoVH59 EaKfgaPiVkJ4bdEhw7m5G5 QajIknl9iybFtsyVxvZO4c cQUchHZbRGWlNZ2ggFWpwJ cyTGenSECdUE1rKFQ2viys PrM5HTFfkZHuptJiAU8amR fyu7s4lVZxeERkHQBugiVe RdKkZUGuIBPoMR7tKG3fQE MaAPMgh25pJKjjgLynXmW6 iPO7zNIqYIBdKW8koDFwHD 69BUPsGYluKAgqz4nelIHc s9dayHufdQifQZ3axLNrhF YkGWMeyeIpX03jEk1noQSq KWTrG1xlbDMom8GvaN8gOV TyV86vhX1zcFBqC4ChHPWt AYSoQYGwPO9gsZPvJM4aEH StHgMifE4uKKErDMUbPLSh ZSBubyBpZGVudGlmaWFibG DlqH2eC7KltMAtu27kHyZh Yv3ad5RwyTqzswBxEIAlWN H8Ki6ctNNxIH7tCKQlhWLq A7QvNCNwvb9qtzXzjfm9Kw RvN6Lwj9KekYjizH6fgdXn oGUwAZVdYYUyg6RyXqtaCQ LnMQbkwIYuRR1OK6Eia1Vn xvChQQCSdHUgz4F3QJZDXP QvNX2GBiVUFUAvCVYARFwJ ClxwbGFpblxlcGljTmVzdE OiAaXeoIbztJ14FYKexHLx GFW9AS2mVQHeiqhwUCJyLL RuKZR3HEpfgT15jEVwYQHg UVIcgBIfoL3ZYVQnLWT2WV ifvM95jBOjMD8UBCChUGN0 CUHjvIQsCBF3IY7fnX7NhP == INTRAOPERATIVE j0fpxRVrWVSyfSU9AlWiKK CONSULTATION (test code Uwb5gbm3GcpZGxhAOlLOkq = [id number]) uPEigmIjdh18vHG8cD17NI 9kFTArTpT5AHOpxwF4Dfy8 CSVnWZQlwMRaP169w2fjt5 jsidTdqWE3cIuqAIGszggt GvW1RXuuPLRvsfbjZIc4NN yzOPVrrOY0MPDxnWXaF6Us TGDtTI8ikdk3CVP3OKusIK CuXmI7ZRLxbJFcWNEtpUlk CTipy928YGJ3OmJeBWNhyk X9SVafPGTxN8ImA5JiYFgv WHG7OLToTHVjBCIuVRYrBX HiGUiddrY1l2skRGOeaFAu ZQX7AVcxmULkAYGxBBHdSL xkYiBPVlIgIiBaUjQzODI3 TDMqCMa1XJatX7AIQXBbJC D7HRRgThTnTlY9JKl8RVSV Kz7iXMO3Vgb3BJF3RLZ7Aj P4YTtreORcNCqkDocoBMca SRGurZTzCDwayaT7KXThSR aaMRTuQjFfBD2pFPttnKYk hG7twSVvXRPeCeA0TBTmwH KaVGQ5AE4wqAqzXKJdA4Ai K0AtosY4JEHilj8= MICROSCOPIC DESCRIPTION h0bwrCWnCMNyvYZ3WpCoZI (test code = 3371) Jep9lrd5ZykSMvyGIeZZpm qFJopgQald59fBI6gG99HT 0eNCVdBpO7NQWphpL6Ygo0 MPBsJEYczEYhD414n6txi0 jdvmSspDV1pPioVLRmlgdr ZkF9WBexGGYmmdscAXv5RI ibCDUizBZ8GVNxpZCvK5Dx FXChEJ8fdee0ORD8VSwmAV RnHkX4BUWxzPAxWARcwXyo SDrzq517VFG6NuVwCIXxms ZmxDqxyW2uShYnFGRKh9Qq EFSgbSajZYKyPT6wvNPacK == Gross assessment was [facility] performed at (test code [facility], = 2777) Department of Pathology, [address] [place] [address], Technical component was [facility] performed at ([facility], = 2778) Department of Pathology, [address] [place] [address], Professional component [facility] was performed at ([facility], code = 2779) Department of Pathology, [address] [place] [address], [facility] [id number] 22:06:37 Test Item Value Reference Range Interpretation Comments Case Report (test code Surgical Pathology = 104) Report Case: [id number] Authorizing Provider: Eduardo Calderon MD Collected: 02/27/2022 01:55 PM Ordering Location: [facility] Received: 02/28/2022 08:53 AM SERVICES Pathologist: Whitney Cortés MD Specimen: Explant, previous leads DIAGNOSIS (test code = [id number] 3220) FuZzEwMzNcZnRuYmpcdWMx IHtccnRmMVxlcGljOTYwMV puqiRsXHSubGDfS5Nazufk PRspPI9wII2opBgubYBndU MzTMAaXjQyy1ktn602eTFt e0oyLOUKjpwaiWd2eLswC8 4uu1N5TaauB23wdEEwFCU2 NJKmFWJzxGRuJQOhCJC3RE BpvCWoN4dcUYRsBZ8sdpaz GKqdVKooLNSsfLD5YQNhuK YhD0BfPYEdFDfeCLTnovf5 EyBsTe5sgPYqqKjgAOsrGG JkXHBsYWluXGZzMjAgTUVE QLZHNAIZGWWVD4LtJQVJCR 3VQRCNM5KQPWVJEV7OSmPS XGxpbmUgICAgICAgICAgIC HcWU8KHw5LJlTZYHPQXAnN SUNBVElPTiBPTkxZIChQTE VHW2IuI1YURFkIK7UMYUNX D5QUMJWVKQ1JBRwcOUE2a4 xydGYxXHNzdGUxODAwMFxh bnNpXGRlZmxhbmcxMDMzXG R8fxYmJOWbSCesNWEmCInk Ry4uiRQfbAgrZiCoUMUqu2 lryaBXlvmugUv8o0dsYUNk XbU1nHZjVLefO0xdlxRcyD ZeFETmOUd9zB76WDQoyP5x qHPsDXbhcpXeZeB5SVmwOO AiEgJ3PAYvaDXxNREeA0bw ZWQwXGdyZWVuMFxibHVlMC Y5tBbfh7M7gUSbvLPbsMmm SbFgSqAoQuVYf2SmCEa2rG izR6YvZTXxYdX0vGHkUHRe GVuuATSlUFArvaM2eR71XC wrafP4nKApw5Pyq34jp336 iQ2dcSMzTKX7RIJcTKOpmK NdRLQcFNG6JPZfmYWeZ2xw OTSlUK6qapzcTDwlVXlpLM QxkBL9CYMwpKMzU6QoNHYe PBxaXOIwoyg5KkDuMf0coR JymLzuBIioi2jwe5nexUOt Dwj0QONvGhLuZkvcMNdnn4 Mky1mzJBJdob7oSOA8bNWa jAmpy2J1fQFcFUCixHYtKG TiJM2doEXrSSBhoH0dafia XHBnYnJkcmhlYWRccGdicm TqCg5xjYpcKBK1OQfqX9ap iX0xNiT6TOdjY4qgdV3rJX w2OQlfGHAymEH3tzU6YHYh iIPfV8UioP3vKTBeTV9bag e5x1ffTZU9ZNjcUKMvEeS6 ymQ8SQJjdIIeUEGimMzyLL yam425NQJ9GwOpKMOky2Kg H2MciHyxI04bmLotV94fMQ QhbGlwfL4auPhfeG5cAsJv YwCgCWlzpVvzKG7pZREwZ3 hziJOmDTVmYEZuF9gcJrJz cG3goUdiMOphccDiQPPlXs a0RMDlfCXzZBXfZei1RJTy GERcV48xxbeeEWW6rJ2rr4 zdk1AjIDmvDDX5GMKlj40q ELdzhwH4NQixCx75WPisNU U6CVmrAMR9iW== CPT Code(s) (test code n4cdlUHnYCMuhOS1MgFtVL = 3357) Ukv3pvd1JdhZKcvTUpOZdx mUPszaUpwe94cJX9hB12WH 6iHOScPbB8APRrpcT0Hhz2 FOTnDDQzdUSzU263v8idw6 fzxhWogHY5bDenJQSfuitk JoX9LJjcHGUljbhrYKn6IT sgOXMwsWQ8QRFfeDUpS0Bp XIWhAC3jnxz6HQR0MYjdQP LdWpU6JEFebCDqCMNsfVog NLdqi741FIZ5CuVmGZNbow EgrOsmzF6eSvOyXNT9JEAm MFxwYXJ9 GROSS DESCRIPTION (test j0uozFHeBSFycWZXPKUrGm code = [id number]) nkrdLpMTJzwHPuU5Peyyhp UOvaXQ0fRT1wmSsftGJidK GiYI3RPWClIkStNFEtbZMh huRwUvRrDOYaeLYtdEB4GS HaOL5ztmnbGWqwZEekHIZm rkL1SYKlrMHxK6YrPQKlKR 1oklukYIW0VQyuwC6thsSS EgnzMa5bbPVeiXofOcHeNn NoYXJzZXQwXGZuaWwgQXJp ORb2wW7AXijsIAH9BJZSKs wkSDXzZY8Oo7zcXGUgcCUn QXA3SChirNGeBJZpUFQrZP r9SRPlCPrscJCjML6riCnc QpzgqMmtx4WowSPlUVmiNI OaMFQkAGdpTMQiJF1RSxOw WQxXZHA0Exc0FdK0DYb2QE SDDlTiScUjWjuzSTK3AYSt HIe3KKf4ZOxXRiR4QHN8RF ExFHZiPTEeRdFeCSd7SGEy XFxmIEFyaWFsIFxcZmwgXF cbS80liMnmwJ9tCF9cCOff uLJopA7leSPqBY3RNUPsdF MHXLE0YS5xUPPBUbpkiDYc FSBdtHteGLaxmS1wLZ6YPE t4nsEhPBIrFpVhTqLlAMa5 LBKqYxSgv1rkqYCpWHjyKQ Z5iOCxIVKjwCxstwZmepBq FB3aTOLtA9Mwx2oqpyPqmX 9zNPLrXP4kHLRamVEkDZ05 ZdHqitQyEmU8vdTxk7t5L3 MahNjbg2pztRfvjVhyYP9l xREmnGPeJQHgPD9zhZCzwC ywETlpRCSwPX6sOXT1mlga SsI5LJEpdNLkmaYbBA9hrT thf1g0eOEhnNLcNQKzqsVn QkDcMEWmXWObHS2pED7tTJ NhAXVos46uWHdeeXhfVfE6 gQZ5bBVfOYYePY3pjFBlLM 54KBTnMMvmJHpso1auaZLl d1vofTcdbTpqQR5fjYIruF JiAXHhtxVdP82rFu7bnMXz GPSgJ9gszYWye5MkpG8uMD OyE19rsF0azDJcF6TcGDFb YSDdTRXgWI1ujMIwAR5mFI EvJmObqM5tHMShAZYvSVGb ZSBubyBpZGVudGlmaWFibG VqlP1zD1PrxZKac19bOvIg Hs3il7IdcUfrixNvSYNlDZ Q5Eq6lrTDrBF2wOELlpPCc C9PsLPOlzq4nxpVinea3Kt CsW1Jaw0KmqFztnI7rwqWg iPZqMPVrGNFjb0RbExvrRF GtYYxkfWUgOF2TS0Kkq8Ry ahJrOEXFcFQym2H8TBIRYB PfRQ0MZxCGZUWsAEQTUXyB ClxwbGFpblxlcGljTmVzdE ZiKgHypSmxgG40QUWluFHa TSL5NB9zKICvrpxyTRUeLW BtFIN4ONvquL97gFGhRWHt UUEedLXggA7UBNOnPHB7EZ xyzK84bYSnXE9VKRHgIOE7 WHCliHCoNSO0RR3jeM3YbM == INTRAOPERATIVE j7beuOUzGYRnkAT1DoQjTN CONSULTATION (test code Yes5asp5FncISyaSMjVSkt = [id number]) pZOklvGaur90oFR3cO32QO 4jLELeTlS2QAKlhdT4Oua4 QIAlQGMbdNDcV098e1uke0 nrpoDaqQB7wLfoHIHsjtmg VnQ8MGbjSKSalhfuMOy5BN pyOIXsdTZ3OGOvkKLvS0Qz MAEtYA8ccnq9GJU2MLasTM WoTjN5NPEytMPhNWIplSje YNsud137LTY0BpHwYDZdbk S5JSjeXHHwY5RaH5OqSApj JKY2WZWwXFXyTKCaQVAiIR YmTPasnsL8x0rqQODumPBs TLU4FAtgnHNoCXFlRHGfFS xkYiBPVlIgIiBaUjQzODI3 ANOsWZg3NBobN7ICFKVxIA O1EULeFlLfRvV0JJl5KCID Ex8nZYV4Bqe2YWD0FVT0Xv P7RPyylODkFKubDrxrSVig EXTrmYFvQKdogaF8YWXqRK ylUCHmCqEvSJ4yJDobzVRt sH3ptRKiYPMsJeM7BTHsyI KdKYG1VP4bgRoaIADnM2Xv O3EpgqA0KVQwus9= MICROSCOPIC DESCRIPTION r7fuzFQcFDXhhJV9XwIrAD (test code = 3371) Ujs8tjt8TcrWUtsAIzSIlp mUZbmqApsb14cDP0nI13CX 7mFFHsIuG2YOSjkjY2Cyu5 QCJoHRDmdKDpV064n5neg9 hrzsRovPI7eBxzGKUzxnoo IdX5PLokYTAiupvtBZd1YL nhDPPhvKY5LTFykVUpI0Bi IZUiPM3ylnw1ZNX7LQwuRD ShSgL4UBGlqOJfTPLbgDsn NGotw460KLC8HvClDYFpsn NygEnrqP8iRqRjOCIKv3Ii ZMTrtUefYVWgCQ2ofFTfuS == Gross assessment was [facility] performed at ([facility], = 2777) Department of Pathology, [address] [place] [address], Technical component was [facility] performed at ([facility], = 2778) Department of Pathology, [address] [place] [address]4788, Professional component [facility] was performed at ([facility], code = 2779) Department of Pathology, [address] [place] [address], [facility] [id number] 22:06:37 Test Item Value Reference Range Interpretation Comments Case Report (test code Surgical Pathology = 104) Report Case: [id number] Authorizing Provider: Eduardo Calderon MD Collected: 02/27/2022 01:55 PM Ordering Location: [facility] Received: 02/28/2022 08:53 AM SERVICES Pathologist: Whitney Coréts MD Specimen: Explant, previous leads DIAGNOSIS (test code = [id number] 3220) FuZzEwMzNcZnRuYmpcdWMx IHtccnRmMVxlcGljOTYwMV bipfYzQLSstFRnT7Zdjnfn YIxhBM6uZN6ppQcwuUCxmP YjXWQdDbMrz7auh641dZJz j9etDMMVhkwccOo8nQwkT2 8yt8D1BqgdV20mgVNkILK6 DEFzCDUshBMfSEWlZBM6WZ VqoEYsA3ykJBVgTN6jzzku NTwoJCnhUREuqKX8SJRizM DsM6HxGQOeLAfyWXYkbsj3 FcPhKx4ezKSirPqwKDjzTJ JkXHBsYWluXGZzMjAgTUVE FIHOTHCGLNSRF3MzSRABAH 1YRUCUW4FWOVNQBF8IBfAO XGxpbmUgICAgICAgICAgIC ObLA2SWy9NCnHOOUNFXHmX SUNBVElPTiBPTkxZIChQTE OCB4CwI7OHEDsSQ8FQSUKM Q7KUOUCBWU8SXTkjFTQ3a7 xydGYxXHNzdGUxODAwMFxh bnNpXGRlZmxhbmcxMDMzXG O6lbRqKUFcDJthMHPlYStj Gm1siAWcbQoyUcNhWYXjb8 drkjLBxacbvVq9t3hpIQWb AcY2sIJpNCggU8rhgzSryA ScVDJfFVf0aD44EXVanB5a wXUsPFclivPyRmR4IUcvYB XdSiR0BSCejXMxAMSqH2gf ZWQwXGdyZWVuMFxibHVlMC N3dQwne3I3dIEpkJLmgYji DbMiGfRpHlLOb2ZvFTx5hA qzS2TmNPDnZyW1tHDwWFHo GRkxHFGlOMBvisY0xD24VX sdaoO2aDJru8Hbh14so222 iY6znTJiFOI1RLRmQSToiP RkFPBaBOC0UINxdVKlA8gh PLMzDX9uwlwcYPkmBTdmRS DusTH3PYEycUAdC3EpVVSw RTldINFsbxi4WrPrDc9voG SewByyQCwyh2tmv7eowVTm Sxl8YKDeXfFgNyxzWRsio5 Ueu7ynMDPhwu5eZQZ1xWSe hOool4X5nEDbHNEmkBDaEB PfFN6ghSAoFAKdrP5gxinr XHBnYnJkcmhlYWRccGdicm NvMy3fwNumKYM3VClnQ6ox cF4eGvI3EFhuB4lvxV2rVP t3IDqcELKbkCD6lrF1YAXv nBQyN9GmlC0pXFXrPG9jfe c7y2ptQSZ5FGrfCOAjZuF6 ynZ2PJJcbNVyEQXrpQnsTK dqr803SLL1QsZqNZLbl7Bk J9HpjJdvS88kxUozQ63xWQ CfsLhhgW0haCskuB7yHdWn OaAhPAspjSejDJ2cAMXdG3 jdwCHqOXOaSQBhK7biHmFm wR9mdQedHXunijOrRUCyAv r8BYXcnOFkVJDbZju4MVWj IXIeS43qvgleJJX4dZ9nn4 fib4NcXIvuDUZ7SPZdp21s NGmxtyI9AZjdGk64UTdpRI W7PJfrLMU9jT== CPT Code(s) (test code a8effWAnZCOnsGO2ZgLyDP = 3357) Blz2cws1GijWOuaPJyZCoo xBOjdtEyit52mNP3wP68JY 5lTGBbIvW6BYCyxxR3Mes6 VYTyNSHkoUJtL226h6guk0 myqgUgvCG0rNjxJXHrunpc VfG7XCuwECTkcpwyCZy0NF wxBRLeiED2STKlcJJtB2Mx VBYoAO8cfoj4FCA8LZvpIW UzVmZ8PTCdfSEkEEQsaBbp NQazl332EML6RxWtFJPktr GjlVqenJ6bWhCmZRV4KAKu MFxwYXJ9 GROSS DESCRIPTION (test b1hoaWAqEDCsrEVXFCEaIc code = [id number]) ovswLtEMBjzABjS9Czesvn WIngHR3qTP2brOzojPCzzW GyCS6USUDvGrMgROReuYQc ulJlWvTzQMIswWOrxDF6BO IqGI4pyvdhJKcbHWcnSVVi poA7APVcdVDnY3BmGKJoOT 1aokslTRB3RSogpL7rblKG VzriHn0wqBGwgShmUmKyAe NoYXJzZXQwXGZuaWwgQXJp OFe2xY4GMysvTUI4ZAUCQm soCGQyEB2Ra3yfNMPkyTQn CWB7PGdywCIzDMXhVSEnQU l6JQDoVIvenXOvYA6ecUky BjvobUjip5AzlWTxUMxiAA PoFNLvBVfxYPCuUO8CWpXf QWvJDUH4Ive4McE7XUu4HT AYBcQdDtIpUjevARP9XMPa YFe9XUv6PAtELxS5AMS9TM QfCKCuNOWaZuVfIVq5IORf XFxmIEFyaWFsIFxcZmwgXF drT85oxTygtN0uPL3pLHot sUHhmM3jxVUeQE6AGCUvjH ZMUXC6DE2dTYAUXqrqmOMz ITUmuOphQEnukF5eGM2RAA q6siHzPJSmNbWuKcGcBWs1 CKWiAcNwz6xqfTVqIKjyAY L6gTQqARQwbNdnffVzzhUy YU2fYCXlL1Ltn3cfwxBnzP 1dPFXiQM4xZCNnlFWuWO96 IfGmwdYqZjP9ddNqy5y7C4 LhqRdqm3jgoQspzElaXS3a gXXxeUUpUZTkTC9ogZGybU jaIPsaOUOeGL5nXHQ2ugyo HqX5YWHdjXIwgjZrWS0kqI nie1r7bITasMVrWGPvmmKs FgIhJGDrFHYbSE5lNJ7yLU AvICEfa81kHSxagYtgLoY8 sRT3fWRtHRJeUS0eeZMnLR 62ODFgGNcoALgvy0iedZRv j5cpiMgfnZrbIB4izYBgrK SbLBWqpcWqS08aPt2iwBSz OQKpD9evhBBll9KvqK1jKW RmM56zbM2tqXKhU3SzCXZe EYNpVAWcDA8uqQLwEI8jNJ CeBbQfiP6lBHXyXKEfHRCi ZSBubyBpZGVudGlmaWFibG TuuX5fN1JwiHMwx17fGnCa Vc2wa2AauCpifdTxPUFpPX T8Rp0ipOBsGO7tSHKbdORa A7YfCPPfgw7lphGkesw4Em TvZ0Nbq2JziSicsS2rmqNb bMCcSLXrNQVbd3KiVpmaHZ GuSGvgbLJgGW8FV2Kej0Ur jyViMUZZgWGoj7T5WBIXDN GuRA0QNnXCEELlRCSLBNbY ClxwbGFpblxlcGljTmVzdE LmQxKngRujyL92YHZyjEGe VKY9VS6sKIXcmjmeZDMtFG UmYZB3HAznpE93jZPdFRZh SWCksCVqpG2WHRFrUOW8DQ ojtY31cNNaJH6LKHHnCBI6 FIZqzATwIZE2DE8ipT3VfR == INTRAOPERATIVE x8wakJKsECCroNK5LpTlSF CONSULTATION (test code Ijb3ohm4HpmGVlnQCgKPhm = [id number]) iOZwajStnt95kLL8uY07VC 1oNNSbGaW2OKQcjoY3Fah5 QAWvRMIkbCKzP999b8dol3 mrpsGcwYC8wXbpNHZswfpq NrN5HPhnVZDoyuzwVGg2VJ udLXYkyQU3MFIpdLDlI3Og PLOvSE8sixy5DIX2ZGssRM IyKuX1AFRsjBPfJPLcyZcg KVnzi893UND1BxRsIFNarb U2NWlxYOKoO1PwN6EoMSgj OER7TGRhKVDeKFEyVWHjNQ QmDHnnjbZ2m6eoAOLfsTVg OAZ6DIqztIBzEAMpKWMaJZ xkYiBPVlIgIiBaUjQzODI3 SEEpVIc5NYtrX7ADPNGyBR V9UGRjMhFkWtF4FNb8OVAT Mq9dKFL6Rup9BDB0SFH9Il H3ANpbtPRfBGyaGsrsLMqt KQCnxDNcFOuejmB7FPVnER bsUASiUdLaHE6fREsvwEGt cM6vsPPmICOpZwE1HNRelY PeMMX4UP8tmSjqNUEkJ8Gs G5ZykxR4JJIpgf9= MICROSCOPIC DESCRIPTION f0vmrQSeNQPjgCT9SnLzKA (test code = 3371) Ygo4wij5TddPDspGLbYTos iMLqapTwbx49sZZ0vI51CB 4xSPDfZoQ5LECtcfW8Jmq8 HVJaARCigLXuV297j7jkp5 aqozLclNZ2mQwnHRHwbkik MpL4SNgaAXWwhxqgPNj0LC lzURTzlKS0CHGnsHHoS8Kj WWZaHR1qhqi1RXL0PHuhQW DtZeJ7JDQzhNHfJVImaSju OFljf335CPO8MsUyIJBdxe BhpJvopV2lAaStBTWCm9Ne UBZyfTbmWRCnRO8krERkeG == Gross assessment was [facility] performed at ([facility], = 2777) Department of Pathology, [address] [place] [address], Technical component was [facility] performed at ([facility], = 5678) Department of Pathology, [address] [place] [address] 93847, Professional component [facility] was performed at ([facility], code = 2779) Department of Pathology, [address] [place] [address], [facility] [id number] 22:06:37 Test Item Value Reference Range Interpretation Comments Case Report (test code Surgical Pathology = 104) Report Case: [id number] Authorizing Provider: Eduardo Calderon MD Collected: 02/27/2022 01:55 PM Ordering Location: [facility] Received: 02/28/2022 08:53 AM SERVICES Pathologist: Whitney Cortés MD Specimen: Explant, previous leads DIAGNOSIS (test code = q3bxrSSvNSFop8qvHLTkdL 3220) FuZzEwMzNcZnRuYmpcdWMx IHtccnRmMVxlcGljOTYwMV xnxdGtWEVkkOOlB0Lfwkvg NCnvTV5eSE8woInbgBOlwC WdNOAjKcRbk5kcc480pVCu u9gcYYCLynbjbGw8yCooW6 6kr7C8UugfP56hxVJzNEY8 WAQxREAibDEfYSEsWCA7CN VmnZNrL0kmDEGgDJ2fdfvp URndTSiaIREhqDS1AOSkcL RdE5WpNAOeGPoqENMzhqs5 LuNsIb7ftQHogIhiXFquSF JkXHBsYWluXGZzMjAgTUVE WPIRWBNNOJRVZ0MkECJYXL 4FLPQED7WKQOVIQZ2CTtUQ XGxpbmUgICAgICAgICAgIC JbIQ6WUk2JHaDNVANFEXbQ SUNBVElPTiBPTkxZIChQTE DFL1SbM4ULHPyGZ7NOPAKH X7SSGKHHSA7QOFauHZY1o8 xydGYxXHNzdGUxODAwMFxh bnNpXGRlZmxhbmcxMDMzXG X3jrKfYLZuWXizASPzSZpr Ju1xlWCdzKluRrEjQTNsc3 rxneFXiocxpXk5l8djHHKm NeI5jPGjEQblB2yoyeHfaE NnAZEfMJm5sP39TUAajY5a tNYbXKpzlsDyGrC0PGasFO NvJlM2XWQrgNVwWELrU5yv ZWQwXGdyZWVuMFxibHVlMC M1aGupo3C7wJGkpETkeWgz ZjPuMoAxSmLDs1SyXSx1sL jjA3WlIVWqNzV6pSCoNBBw MKfgRHXwLPNbssK6uX18FB ctpxX6uFXrn5Khi58ug697 kI5qmOQtGKG2DNHbREHpiV WoKYDeWLL9VTLrbHWoH5wv KZKgAD0jbxcjVRzgJYftTO KceSG7UQJznGVgK9PwMDEy YRcoRBEcrjs3EiDyYl1tgV DioDxiLCdgp2tfb5vxyJNq Zuj6QBYsOwMgYtfrAGbso4 Awe6jtXEKpdn7dDLY4qGBa nHmzm5M9fKYpSBAvdZJuGC DpYO5hlRCpXXQdfR1lebbl XHBnYnJkcmhlYWRccGdicm WlQj3eiYcfRBS0WOkwU8bq rY5yUeF0SDrwK4ljtZ6oGF i2MOadDMTpbGB4rjA9DAUx oCNuS6UxmC0aHDRmYP7loe s5a6axXXJ2ZNvyZVLbWkH4 pqI6UFOjgXGlLTZsfVnwMZ kgr911EPW1EgQkSKZej2Vt Q7LusEhlH78svMvcO12jAL DymXxyqK5jyQvdxQ5wOqSx SlMyGCufbXaaQK1bVYIuN1 ehrMPtFJGtIRUnE6buAtQp iG3ctYmvTOkggbKdOHCnUb f9GDXovLRsZYUsQwf6ZDFm OQHrX02gxhnxUKM0eH5fy2 ent4TxSJvmNTZ9KCPoq40l EOadxfP2WHemTa02LVsoAV S5NGlgDBY1rO== CPT Code(s) (test code n0wioMHfBGXwkYL1YaNmPN = 3357) Tce4sqv5ZgmIQceSLpCUit vNKwqiFonm39qIW5mB06ZU 4rRGDhPoS2BNCmlhM5Ezt9 WELgYSFlgZWiP357t5axu8 sdgrMdoTG1nPgiPXBnqull ShX7OZnqYUBhpjpkEFn5KE ecQKLqtCD5UTBihBAfD8Rq LVYlQU0rpce6PYW3BUymIZ RgVmW1JCZyfKIcTJGmdYbk OUqgi570QEC8KuYfSSTsaz KmyCaeiF8xJvYzKTX0SHDy MFxwYXJ9 GROSS DESCRIPTION (test w6avgITcPWJykRVGFONlTt code = [id number]) etvuEtOIFhdZTgJ8Ckvnjv BAftLX9oQR2iuXsheBCuaS DzXF4MXGWiAoRhDOYmsZVn jkWvKoUzYKEsxGHfnNZ7UV VrYC9jchsvKBnkWVkhBKQj wmB5VWWbhVQgA0GfGRWwLS 8pmchpTBV9KSxheK5rloYR NkbqKh9yoNWrbBifJdOiAl NoYXJzZXQwXGZuaWwgQXJp JEh6tP3ELtgyQAP9FARVYc puMHPtHX2Bm9ukOYKcqBKv QZQ1VZcqnVZfPTMqPOWpVU x8FFNpCLklfLIxCZ4jzBfp XmrppXejz9BsaTJaVXxdMD XdIJXsMKzsGVBlPW9WFrNb PHgJJOA8Hyy6PeO7CVp3MC TRLoXfXwYkYcgjONL2LRMd EPj0MPe9AQjXBlE3ULL7AC OyJTNeAUPfDnHuUXq6BDEl XFxmIEFyaWFsIFxcZmwgXF yfQ67fsQkgrP7iML0wDCje xCEdtY4bvTQkFC1ALYQlhY NZECZ0PB8rFTHJEjivkVKq DQQloTydJKsesH2kTS5BFF x8rtAjOGWzMlWkPkAqVAx5 HIJiKiUew9htiGUcHBimOZ Q1fAAzSWSdoNgkzqIwcwIz GF2qWFTwG6Hgf0nawtXvcM 7rKRLbJG4uGWWckTGsMV98 DtIprfKfUdT0ogJue4a1H0 PxgRvwg7hlqOybdPemRF4g rNFpeWUvMKBkJU3diOSflD udWQwnPFGhWY9sWLN4xabm NmI0ILAttXUexvEbOW3trC zkp1w8pEZyfGCtWWHtvwYi HtSaNGTzENOyHQ1lGY9rBQ SwXGRyj73wWSyqvIwcKvT7 yCR4iAVdSWEsRA5xpFBgLH 85XLXhOBucFZgqi5luqSUm h5hzbLxflZuxBR6lzBBqbV WwVJJhhuCbB28xGu2azRFl CONzI2ijlJVqc6CyoH2aCH NmO70qqC5hmLHdV4TlLBBt KWYiFELnAM9zqEDbNV6yDM PrEuXvkX6jVPDfTIDtBQCd ZSBubyBpZGVudGlmaWFibG LghQ3yB4WcsUKzo65aOnIj Su4io9DkbWnrtmJwUCRoPM K5Tf7jhVCqSO3dDGErdMTg B8MkHUOboa5mmpAmoun0Fs YgG0Les1OsiJccrR6szmXe yBPfLNFfURFwg7YkGtvoGS MkNXjxkMWgAA4CV9Pfa5Ox qlDsTQOLtCJdf5X9EDXPXR PiZG4DWvVFISXeWKZMSKjP ClxwbGFpblxlcGljTmVzdE ZiUkLqzQdvzK15TQSpjFQs ODG7JB2wBLZzclfnLDTrVY FcGQN8BUgueI56gTSrWGRt MGQkeZUadP4OTTNePAG0RZ disV97hLJvYM7XXOSpMWK4 WQAdiEUgJZH7MA0ulV9UmW == INTRAOPERATIVE c7wdjSVuKAJigNK6YjIoSX CONSULTATION (test code Ehv0cbu8LiaKWcjZKpUYir = [id number]) uUAzcsFxot88kPA8pN62ED 3wOTJvFxE5QFIldsA8Vrc1 GMXnLUOruDCnW116u2tyo0 mynkLheDY1zJqzDSCsnsya AxS9QWvpWLUifllgONp2XF viBKEnmZJ4NAOpuWYxB2Fu DANnNX2ackz0UVT3MUajPP JuLoE2EJXhfFImAQAdjYzc FEudk647LXX3RqHtUEWugb Z4SFvuTPKcS7RyD1LkIGug NEK7WNKhHWVoCZYtRAGfCX SaUEilsgZ9p9edXGXbjYWj UQI9NDjljRWkXRKuGIXuCQ xkYiBPVlIgIiBaUjQzODI3 UARaRWz2BPtqF3XUHJKiSL S9IOFsEmUwWxP6QYb0ULNC Bi0xPWL3Rfo4TPC3YBH3Wo H3NSkafNMiOHovKljiDVqh RVPyjHMcCIuwamM6FJGgLZ kaLYCeFdEbMU2gWBrsuBWg lI0liNIsAYVqWeZ9ZZPryM AvLSG2UI4qdQjvHPPfH7Dq K7JpvfQ5NRYmfv6= MICROSCOPIC DESCRIPTION m3cuwCCuBVTnyJP3BpAxZC (test code = 3371) Bwj3qwn6LkqPPuiKItZFqn uWUobqGslu14uTU6rR99YO 2vXRTeOnI0WTMedfZ8Yym1 NGGmRWWmvTPkU117w1frx6 egdjJfqHY0mBcsCFTgdeip IcB6RHksWXDlybtuHFn1IH fbYLKpaNN2TFQfnMGcZ4Un PKEtSH0pnfa0NBE6ZVckJE PtKvR5IKYgcKThMATqgBtg MWxya039AIP3SyLnPXZabc ZfiTjepK9uRaTgWJQHi4Eg ZZXfuUpyAHYuIM0hfNCgsX == Gross assessment was [facility] performed at ([facility], = 2777) Department of Pathology, [address] [place] [address], [place] [address], Technical component was [facility] performed at (test code [facility], = 2778) Department of Pathology, [address] [place] [address], Professional component [facility] was performed at (test [facility], code = 2779) Department of Pathology, [address] [place] [address], [facility] [id number] 22:06:37 Test Item Value Reference Range Interpretation Comments Case Report (test code Surgical Pathology = 104) Report Case: [id number] Authorizing Provider: Eduardo Calderon MD Collected: 02/27/2022 01:55 PM Ordering Location: [facility] Received: 02/28/2022 08:53 AM SERVICES Pathologist: Whitney Crotés MD Specimen: Explant, previous leads DIAGNOSIS (test code = f9rktYRvBYPmh1qwGFVahN 3220) FuZzEwMzNcZnRuYmpcdWMx IHtccnRmMVxlcGljOTYwMV shqvTmPOIsyNVyR3Orkhma GKecJW7vDI5jjFksbLDjhO FqEZPxBgIfs8git634lFTc f7bxJLXVoyqobJa5iTumN6 6rp2T8GwtiS03ffBCjRSX0 TPCrJIRnqLOdULDgPRP9UL NrfZQuL5juYXVkRX8nbqev QPjmGUbgVMLerXB4MCZlzO YaW2MkTCDaFJrdPFFuvea1 KkZuMs3qfJRjoKsbLElaYX JkXHBsYWluXGZzMjAgTUVE ZBDDXVGZABOZM4MnIUYLQC 5UOXRVB8RRAJROUY3KHkKU XGxpbmUgICAgICAgICAgIC NqPR3CNo5IWbYAGOJFVAuL SUNBVElPTiBPTkxZIChQTE TSQ2ItP2QDIWwXC9XILLVM N0TOTIUJIZ2OJApgKBI1a9 xydGYxXHNzdGUxODAwMFxh bnNpXGRlZmxhbmcxMDMzXG A2fmYfQEIxOCzoPTNnPNbv Qg0sgJLfxKftZcAdAEYev5 myebLXrgzzrRf3x0qqNYDc RyP2hEQjUFhsM6alirUjpL QtFHEqKHa4kP65ZQPfeL1k jUDxCReknjBvXbS7HQbuGW EoVsK0DMNvaSGjOJCrO2wl ZWQwXGdyZWVuMFxibHVlMC E4pFqlx8S3gPSsvAWyiXqh NjHrGvCfCzUHl9SqQKa5jA htJ6XdKDXsLfK4cSOuIGDl ELjiZCByJSFgssY5sK86OD hpmzF0uRHys0Wxu20yj999 gV5ykUUsKTC0KPIgQWGrhU GkUYNqNHF3OPZkzFLhB6wb FZKoDP6crfxtAJicRQdmEI TzaBF7REIcjKXbB2SfMYOg JOlqBZKnezu2AiJdYd1iaG RnjEayIUrmu9yae0pfnLOn Jgr9LZTlLpFbZzkaWRurl6 Mlv1bhPTRwmq1mPXR0vKUx nHmlx7T3uENbCQMxjSCiKQ HiYR3qkTPwWESjoK4wsiox XHBnYnJkcmhlYWRccGdicm BwFq5tpEehOKD7UOcqE2pz zK6eNaM5WOpxW4smfF9lVQ j2NVtlTKJifBP7lkD8TTAz rJBlM6LjhX3kDBNsOE1wdu z2g6gkJNU6LHqrJSXoDpX5 qtV5XIMmkSDsIAMkbMmxEQ jkv307YFE1WiTuASUvw3Wh O8GxcHxjZ72ivMylT61wFH SnxRnljA7hcUmyrC8lXpWh GxWeNWdnoAjrBD0aVRAuI9 fkjDAjJACsUSOsP0dqKzYt uR1fhHzhOBkrsvEfSAWqSd p6VEGsrGHeWCQuXdm0IWUj QHRsU52wqnseBKV0aD9of5 rlz0HdLXitXKS1LNDpp77j FCydxgZ8VZpkHl97FTjpKD K6GQpoTKJ9uI== CPT Code(s) (test code a7drlBZhZLNfwLK4HzNqRH = 3357) Gic2jdi7HznNOxlZRiYTkv jYNzccImli72dTX1oD26YG 6fYQDsAmV9BJKdorX0Pgm7 IWIkUSVjsUKwW264m8ylm2 dxscUewUJ1pJeiXKAhrvft DqH9YVfrYZTsopmkDAo1CJ ggPQMdeBZ4VMHpnWDfN2Is IKPhBP1qevi2TSU3OOweVB IqVpD1ABAuyCAhMURteCre HWfou158YZJ9VfYuRFDkzu MgeJfurK9kDiGuAWA8GARo MFxwYXJ9 GROSS DESCRIPTION (test f3yphIYqWSGbrBEKMUHtLu code = [id number]) smzaXiYVQcyDVpX4Exotov JDhmWG5gDS0lbSeyhINluX HrGC4ZWDVlHxCrHMXnzWTq emAxSoDyMDBydGNbiFD5WZ JyIE6oipppTIskVKnvRGXz yzT0RFTycWOfI5RuJZAiBA 6yytuwKRZ7GXgobU4qpiRV NcrdLe8djQBxaEcqYpDlKh NoYXJzZXQwXGZuaWwgQXJp BWw2uT4YKyrxCWH7LBICKs tpWLNdBZ7Id5taOUGuoGXh VPF8PJqciTTxKTEhKEScAM u4XONeDCqowXQlRY2pcCsx XivsxMino4QlnZXbFBxoKJ QpMXRwFJonMEIaYM9GIbXs MXzNWGM7Eks7IyY9YEe1LU BMRrNgGbEtYhjrSHC9OJFd JFf0REu7IRgOFgW0FUY2GW GxXFTsGVKrMkLgTSl3XUEq XFxmIEFyaWFsIFxcZmwgXF qwC80eeBmblK5zGP4iNIrb vFTxgG1ijDGaEL3RMLXvuA SWSSX4XX7tTHRBTfkhsPAe HFVxkGafSXqyyN4xSY6BPH d7fbIlNPAtCnXwXoNgPRg7 WZEiJwScg9fnkXNiNXjkXM J1cBRuZCFfwVnhdlDhyqSw UV6uDIKvS9Lgl4xxckBgdI 0aSLZoRA7lHRBpxBVgXI77 TkAwvgQbRjO4zrRhk3h7U5 AdxDzzw4mjfRootWpzPX6u uSSllRQfCARmYP0brMPleC ryKBeaNGXtBQ0bJLW7sknd EuN2BRVffSJyztAqLH1dvR tav3c7mEVieOMxUBIwgwOy AtKaHOQwJBMjUS1mYT2wVL LvSJVod54pPZlsjVedYrC7 aPW9yUOcDWYzED1drLRaHC 68OFNwPZyjLUaei3orkTMc n1dcxBqqsVcfEK1qyJUisL NeRXRkgzItN42nCl3mkJQg OKFrX9bykFMsc0HjtG3hNB TwO06leK2bsZIqC6EwUDWu BWBnLVAjMM5spDBsVQ0dSF WnCjNqhX1tUMKnFFIuUTDw ZSBubyBpZGVudGlmaWFibG DkzZ4kD8SigVYdq42iEqUz Lm5jo4IqfTtqesOeQLIsND R3Cw8zrTFrTX7oNORceYEr U0FbGIXogp0emkFqcyw9Qn CmC9Lra6BruWwqlK0qbxSf qDOlBBUeRDTov4BnJdkcBM LbOSyicNEjID1KY2Cur5Dc jjEyBCXFhBRxa3A2LJSGFH BtNQ7VSsDZFIGmHKIRGSiS ClxwbGFpblxlcGljTmVzdE WtXfGxcJfshU53OEEygPEx VRG9OD9nDFRbayfvHOMiCY BjLZP9SIvzyQ98eMVaPCPd VPJakPPppM3GXSZvTRF5JF zeeW29fYSqLM7FCNCuDEO7 NRDukOVhAMD1RO2jyN7BzV == INTRAOPERATIVE s0xxtAPoVOFieKZ0MuJrCY CONSULTATION (test code Ifh3uly8PaiKKfxYEkYEnt = [id number]) qDMalhJmnb93cRY8aN51PA 6cJOBiLaH0JDUlzsV4Fgk7 SFAmHGAoxMCdL093q8vmr8 bvcuBtuXC0jKthIKVbafcm LlK9EWioWGXzmxuoZMu6LF peAPOgiZZ1VKFsyGZuS3Ue LSGdJT1dqyx1LOZ5XIzlBV VxPaJ8WJOjsBPmUUTtpVem YCbem783EIH2VoBvSDFtel T3FKtfHXWsM0PvD0RdCIep CJM9FMThDRYaVKDfBJQeZU AyNCkjymO5u8qlQKGqyWKi IUK3WGyfjURsWBBhQGGeBC xkYiBPVlIgIiBaUjQzODI3 UWEoSEv0LQatW7JDHUVwBH E9NFWgMpTjXaG3JDn7MSYE Og4bTNI1Tox7QZI1SNW7Ru K2EBtfwMUgQQczClhdIHii UTCqeWEuMGggxnH3YBLdAD lwTEYjQgFuKW7sFIqtjOGr nA4igLYbKCIyTrI9EUSsdP IwYDP1OS9urKtbOHMrG8Kq C3YctlW2EVHomj9= MICROSCOPIC DESCRIPTION s2eliESiQCXyqPE4KrGtNE (test code = 3371) Sio9jxq3MdcIHkqGEsQFwk jUBvnoRtbv18bRY6gD86JK 8yABLsThH4LEOpayF9Hwo8 UENmNUGgpQIiD898j7hqf4 nwuaPjsZI9xTkzKQInhavr MhR9SQiyRQSxtzmiKTd6SR cgSCWstKN4IEBekKXyC3Gr OHIaUJ0ebpy7VVW8ZAkwAS GnJrZ8BLTaaKMjCEOspQcq POupq787KSN4KrPpKGAqst CliCrobI2bCdOpWCLTz8Nh MYSasOauLITjMA0jyKXepD == Gross assessment was [facility] performed at ([facility], = 2777) Department of Pathology, [address] [place] [address], Technical component was [facility] performed at ([facility], = 2778) Department of Pathology, [address] [place], [place] [id number], Professional component [facility] was performed at ([facility], code = 2779) Department of Pathology, [address] [place] [address], [facility] [id number] 22:06:37 Test Item Value Reference Range Interpretation Comments Case Report (test code Surgical Pathology = 104) Report Case: [id number] Authorizing Provider: Eduardo Calderon MD Collected: 02/27/2022 01:55 PM Ordering Location: [facility] Received: 02/28/2022 08:53 AM SERVICES Pathologist: Whitney Cortés MD Specimen: Explant, previous leads DIAGNOSIS (test code = n6uquRHwUUBds0ldTCQxsT 3220) FuZzEwMzNcZnRuYmpcdWMx IHtccnRmMVxlcGljOTYwMV riiaVzUXGzjFQhL5Ngiiat OJonUS7gHA3dbHybxBXclB XhQMQvVxYrd7gab158xKRh h9zbFNUWvqivqQc1wVgyA4 5tz7K3PjxzL65ptUOyPVB2 YWSzBFHzcXJiHAJdZMT0PL CltIFvW1haWPBbQU0ykepz ELddTUwxXPOzdTT7NWZrqF MoT5CaVQIxPPxwBUOtkrp4 XuQbNg0ezNDewRdhBYysCM JkXHBsYWluXGZzMjAgTUVE MMAVUSRKMXFRD8CoBOXIFY 6HWRTZJ0FBGNXEKH3RHfVT XGxpbmUgICAgICAgICAgIC DwNE1PCh9OPrZVEXMAXGrK SUNBVElPTiBPTkxZIChQTE DNU8SgW7VCQOqGH6QEVIDU Z5RFWNINUL6MTUpfBNQ5h2 xydGYxXHNzdGUxODAwMFxh bnNpXGRlZmxhbmcxMDMzXG Q1grUhPUFaDJtuXIOoKSzm Qz1mlKJiwFdnLeLqZSLdt7 gnzhDBlykaqRx5j5ltZLPe RpX1dUHhUEfpO3rmmfFazO UpDFYwPSx8dA12VFZkzQ8t vIYoLKtpyfHeWoP5BLluEH SiIiV2NTTbbDFhCYJbB8iw ZWQwXGdyZWVuMFxibHVlMC K0iSfwz4C7kSZsdTYswLiu PcDjLqCgJgIHo7QpRMh4nH lmK0GjLDZvEcT6cSYdUIHf LThuFSUgMYVrxaP8zV86MG zqguT5jILfc0Rud98jr835 oS2pvOYqMMS0OHAdBAHioB AdQKKcJVA7DCFxwUUyB6pf YOCsQW5oktvoCVukQXczHI PshPR0HDYkcRFtD6KaAONz BKgxAINjazc3YzAcDd3mzQ InuSckPBgzr3akg6ejqVVw Loi5LYFiNhBkCukgYXebv1 Rhc8tkCFYxuu5zODM7hGFa pZaxb3O3rXHdRYOkgHQsGE IaHB9fsMJeTNYqzL0wmqgx XHBnYnJkcmhlYWRccGdicm NqUh3nlYkuRIC9QWnhO9nq qH9bGhI1SKijM1xjzZ9yXA d5WGaoLJXgpZU4bbT0SRTx eABmO9PbvX1cQTOgXN9vuj g1f1zeCIA0CIvwQAVwSwF6 jqN6MXScrLIeNXLwsQxoDB zxi790PLG8GnZqHFAso7Fl A8HybJhxK72ozMptU84qSB QlaQeciK0woQqinR3lLjPv IzLnMIflpLtaCU8dOTJyT2 fsyIZdZGIdPBLqD4ntSlBm pI1rnGivHNiintVgKASfPj w9EKPfkLBxPIBzMjq2ZMIi MSNmT88czicyHII5jN4am8 rai3TgMQeqNYM7FOLaf30h XGpdwhJ9CUqcRd02SSyuLC G3FPfrZXY1pB== CPT Code(s) (test code f6fefZTrKZNgeVU6VkJhFU = 3357) Hft5vaw0FmeBEawYOdEQww fAWrqsXldd04tHB7eJ70AQ 3gKHXpDqU1SDLylxV5Ljc2 CJHnOISdcOPvQ077m5hfn4 wzdlGfqQB4qHkwRQVetfrr ZmF6HOuoOZXlrzduTGq6IJ hbITEhjJU2SZIrjRXrI1Ww UPLxTO9pywm3JFO3MPleSP ZfKkI1APQhtOTwLDHqpTcm WYdot482SCC9WqFkVNRwss IbhLhatG4rEnNmLRJ1LOJb MFxwYXJ9 GROSS DESCRIPTION (test m4lhwKIcAHYgeTEKDKCjZz code = [id number]) zyrqElKYZerODrZ2Xmlejr HIhiAH6iXJ7cgCwgdUXuyV TaUZ4SLPRfIiHpZHUeeSSs qlRgFmReUKFenOIcdQS9NN ZmWJ6swkiuLKayEMjnIATj mjY6UTAtkZHiK0BeMINgNU 3dtmquXXX2NYelbE1cbqPO CzeiKv5xjBVbjCnyIpCkNp NoYXJzZXQwXGZuaWwgQXJp QVi2oZ9JGndwYPP9TULUAt kuSTEqIA8Lk2laSWOcbHGh OFZ2PZpzwNJmBIRkKSQzGS v4EABeBFkiuOVyJY5ufWpu BkmplHtgf3TvgINtLFwjMC EvXIBgGEzuMBLcKP6WBfJq KOhSRJY9Cif7ZpS7ISp6LC DGWaXhWlKlApsvUAQ5FMWg YTp6DEk5DHgHBvA0TSW0PY MiFTAmUUAwBvHtQEi6CUXz XFxmIEFyaWFsIFxcZmwgXF hdQ26rtTrhjY7wDT1cVBaw wCGstZ8wgMHkJE4TVJYmxV YRKGJ4RT5nHFQPMnjoxRXs YTEmmKqrSGufzP1dOQ5DMQ q5maEmFINuWwUpPaGtDIj1 OTXrJaXcz7tymLXoTLueLF O4pEXnMZFfdFyzocOanwZk OV3qGGPbA0Cpc7ogaoJkrG 6aAMBsVV4mPLPqaAZuWZ84 TmCctmFoUeF7rhXqs6m2E3 FedOfdo8jqpTusvWyzUF7s cGXolJQlKFZpVO6soCUzcR ddDYfqTRCdRR9gWWY6jcen MtK7AZKxmAUuclZbJZ4imU mmm3d6yBVsbTFySJBdxlPy JmRhUNPaVFReBO3vSR9oCZ LgNWHfb60vENknaAigJrN4 rXF6iRNaTDHfYX8aqYFfBA 51ZEZoSDxfRXgoc6fuySRu r1nftItpmPsnOD7jbNGphQ CwHNYotrQnR06sIc2dzSAn MTFjZ6kqsIHoa0OrfX9sXN DwX72dmS5wnYMsP2WaMEDj DWApXTVaWE6lsRXgOK0kWK KrAuNueS4pKZRuMPOfWCUu ZSBubyBpZGVudGlmaWFibG GzzJ2lT9BexMNpg66vElMl Uw1qm2MdvDldtaTnCLHfPP V2Vt8hkIWjCS7jRUSymCMa K1QfGEQtun0ivtTsezt4Ly RfF6Mga9EgtEtzbS0cfpYi nJBfLPIsEOQhp1KaEvlwIY ApQYsivVCuKB1SH1Hnl8Kk diSzRABNjKEfh9V2VDLGTX ZoJK9FKsBZVLAjCDCOBBlR ClxwbGFpblxlcGljTmVzdE RqEnJmsBdfvT11CWQoyXHm WGU9FO7qBNGkiiiqWKVzSJ WcDXF9WArnyG35qLWjECVm TWElcGVjpK0SMZHpFVV9WT faqT18iXZgHA0ZZWUiCFI5 ZUObtWHdAGV1RJ0deO0WdZ == INTRAOPERATIVE t8gioIPhELPurLR2ZvUoBS CONSULTATION (test code Wei3hvz3ZstXIcjBFpRZtc = [id number]) eSLdcuOdds54vYB3bW42YF 8qITSeCxV7IDIdshY4Idu0 PULeFQHldUCsY687b1wyk3 hluwCmqCQ8iYpaNFUoxswf EqL1NEbsZAZscaojSCq8PC hgWEBstBH5OLVlmHXeF8Ed FBRrMI8wglu7ZGK6VYoyIJ RwPjK7ORFhuUZtWTQjlQwn KEcoq182FOB6PiDiRKJmpw D0WJixLYSnP7NnR2JaNHce MOA6EYZsHMInYGIeULQfAC MsKCmtxlZ4n8zbWCBmrKNx OTQ3LQilpWKeNVJtXCSyIV xkYiBPVlIgIiBaUjQzODI3 WMFqYNa0SLulM2CWPWIzGY F3WLHgHlVaBhC5UTa6MQVN Bc7oEYQ7Adj3FYP7JNS6Gc W3AJbuuDZhBYvpUpkyYPsw YRStiCXjFCrqlhP6ECVpGZ ffVGDpBwCfNX2eRKnglZHs yO4rcNAqVYGbIgY9SUGabA SdXVR4RY2cpWtvTEYxX3Ov I4AufrI8AWRdky4= MICROSCOPIC DESCRIPTION f2axvEAxXTInrDO1JlAhTU (test code = 3371) Ypk7bny3OjrVZrrXSfBLse xQIxzrZzzr02gBH2lA46TW 3iVQYhJcO2POZpriH3Wwg5 XODnAXMviASeI363u4rna3 ewsdPggWZ8tOciJKGdwnsr WpO9XHluQQSjyktgQOq8XE skCRBhkVI3IOCvoTQdT5Tk JWZgJM3oogf3XUU6PZteFA PgVbU9CYTlpNUvZAHzdVak MBmln514YZH0EcFdADCfdd BtgRhfiZ6bVkAeZBSJq5Gh NZWjqFqrRBFcDW1drBFafF == Gross assessment was [facility] performed at ([facility], = 2777) Department of Pathology, [address] [place] [address], Technical component was [facility] performed at ([facility], = 2778) Department of Pathology, [address] [place] [address], Professional component [facility] was performed at ([facility], code = 2779) Department of Pathology, [address] [place] [address], [facility] [id number] 22:06:37 Test Item Value Reference Range Interpretation Comments Case Report (test code Surgical Pathology = 104) Report Case: [id number] Authorizing Provider: Eduardo Calderon MD Collected: 02/27/2022 01:55 PM Ordering Location: [facility] Received: 02/28/2022 08:53 AM SERVICES Pathologist: Whitney Cortés MD Specimen: Explant, previous leads DIAGNOSIS (test code = [id number] 3220) FuZzEwMzNcZnRuYmpcdWMx IHtccnRmMVxlcGljOTYwMV pnymNsLUHadSJuY6Uedypq PRhmTV5lUB6jiDjvdGTyoR NnSJInSdEsk5jdd079sOTr m6kwZTMJfghidIz5tNnfQ0 7br7U7IskfV20wuWXbBGE1 LOAkJMFcaTYgERYwHWY8SU PnlNRwC1peFNUsYA5fqvtm OKdpEZmyLMKieOI6ZTRllI JyB0UeMNPpWZdxTYEkkgh1 FsZzAt5stKHraJniNAbwAD JkXHBsYWluXGZzMjAgTUVE WPBQBPAHDLUIZ1OrZMOQEZ 8ESSMKU1JVZITUUS0ZAkHF XGxpbmUgICAgICAgICAgIC QfMN9VHe4BYqARYDGMHIzY SUNBVElPTiBPTkxZIChQTE THC7NcV7SUYWrXJ8YCFWGO W7SAFMVNSX8PDHqcYJQ9n5 xydGYxXHNzdGUxODAwMFxh bnNpXGRlZmxhbmcxMDMzXG X8ymWeSMMbLTxlWFIvNCch Sa8igABdlOikYcFaEHVql2 shycANsewnjSb3i6hoPRUp TdN6aNOlYAmbZ8ffsxIimD VdRBHzZEu7lM24YJUqyF1e zSFwIIrvyeFtGjX0ZBvoOE LpJoA1WTFfeRQvXBKeU7ag ZWQwXGdyZWVuMFxibHVlMC K8pDrse2V7nOKbwGJkqYah TeTaRdIjFhWYs2JxMUl2eT bxM9RgXZTsBvK0yMXjVYSi DXxbZSHgUNMrygM1bW02KI iflwG2lKLps3Bqb66km058 wT2qeTCmHCA0LYBtNBOorY JyUUDhWUX8LBXshYPwO6uw CNPfGF1ssmqkWYpxTIilIU SseJJ2EMErpVSyQ3SaYJUl BEzgFQMbuky2LuCgZu0dcU LbfFqcOWqkf1uyq7gyeBLb Cvv8ZUZyGcWzBwcnKQwvx3 Tvt5vhSCCtow2fVPG3oOCe mXhfb3O7mQDmOVEluPIxEB ErEG7nwQGlOJNuxO3iynmo XHBnYnJkcmhlYWRccGdicm AsRc2nhThfRPS4JYnoQ9xm vG8hXcQ2OKnjQ3apwP7qVI a3NVqaJCSkbPC9umO9XTRf jKDqX5QgcV3jIIWyGK7gwz q6a3woJSX7HAeeUSAeHwG4 tjC7ESIitKTsGXUqsMqvJB not611WPS8ErEjQWNnf2Te X6DarHusG31asUiwZ70jOR PfxRrdpB2qbUzqmJ3sKwGy PqMjWIlnrNoyZR2zXWVtW5 htfDGkENZaVNDtJ3nuHtPl cN6kqXfjDErceyDkANNtAe s2SBRvmPCmDONdGsm3GUXa RKRwO92lzybpKYM6fX0ho6 uun7KlEPnnWDZ5UVSgl17m QMwhspC4FBjhUe32YOucFW U4BEtqSUM5pR== CPT Code(s) (test code l3rfqEQoEVFgsQR6YoZpMY = 3357) Iuw5uyw4JsfUJutKRfJTkn yUQosvTpkz30iTA0iE99QX 0nXRHeSpC5IGLmmqZ7Ljf1 XCByKQXxiVAxH169u2eel7 eiisYqoYB8qQmeRQQysrdk LoZ6LVdfAROoxqtgLOp7UB lbLIGszTG4WTPksLOqL9Lz LPHzZD9yntl5BKT0TLbeWI QtUqH6CUDsyZIeEXWdrKnx VOwqw485AMH8TxAdYPCoio InwGnncH9cUjAiVJO3KTRc MFxwYXJ9 GROSS DESCRIPTION (test z8batFRsURCifPXRIRPgBu code = [id number]) fxijJrBQHxaPLmY6Cwlhbt SHvxGB9hOG6ifNzoyGWdjT BzXE8NZBKeIdBcQYPkbZEb jlDzMjUlVLCypGBaaQD4KD QdKT8yulxkDAxuGIdtTOCt pqN9QIMmdZFiB2DwIWIyNL 8loygwYLG4HClhlJ5ekhQL ZajaYr6eiHBszCbiSdTnOv NoYXJzZXQwXGZuaWwgQXJp OBw3vU4ZBxiqJCJ2RNISEc ryRXRcGB2Xk5mfCANucMGc XMB5JCjheAUbIIQxDNLqFE y4EWUsARkhlALbBP9psLmn ZmdeoLazf8AmgSEaPZarUG BsBEVzGXytCRBhPN7QNbZy ELcCQIM1Jyx7SjL5CWi6OS TFNxQrLkJfIkpxRPP9WXXm HAr4UQl4AVnAQeI1IGD6BD QzJJQxEJPkBwVsOXr1ZWTv XFxmIEFyaWFsIFxcZmwgXF epZ08zjIvzyP9xAX2uIXye gEHkgE5gmZTgTB7DLEKhxP FPVXB1FX0mWZLAAkjndTXc EHDemJzyBNhbgC0tZB9PDS u8jtWlFTUcLfEkPoNwJDl5 RRLyXwJwo2zfsAIoTNdqIB Q8uMLzQHZnuCrrkxZiomTq UY9aZZQkU2Hrq4lbwvLlwO 0wYOMoBJ3hVMIcuXPqCY39 CkGnnbPoLsI1jbJxx3j4E4 WqwFcug1qqiCtwbTaxFW1j vWUkgBLvVAObSU3prAGzjS avLHfjZLYlST8sUPN0bftu QeU6KXHosSQfpaXhLU6pgJ cgp1q7uFLekOLsGEImpbJa HyIwZOZwEZGaMO2wBP7aYU SvYFQbp36zAOmaaQybFsQ1 qBU6qJHwVRKwGX8onFXcMK 16WVGpVZhgUAwav5fbpKXa h7pgvMinxDusOL5ggPNenO HyELTfstTnG62gKo8laOWo RNIcL8zhiFBqj4DzyZ4wUH PyH17doQ8wuRGwO7OuTESi DIXrHUObCT4qnDJkUH0yHH YjOuXsgE9vDJQuQBDiQLGe ZSBubyBpZGVudGlmaWFibG EwzN2cW7ZkfXCmr04bBzYa Jv4ks7XizDispiWeQLKsHB R0Pb5xcNTcWO3xIOLcaQLw R4NxOTArfw3nomBelwn8Fp JaV2Hvv8TugSabeO4hsaXu aTMbGTHvXBOpz8PuHoqmZB UrBIwzkIOwPC0ZY7Wix0Gp fhNmGEWJiNCeq9L3MJOKJH AeAA4RKfHDZAMqPMPNZIeK ClxwbGFpblxlcGljTmVzdE ZuZoKjnWhnxN40ZVYqfVOz YQN0DJ4jYPNapdxtNIUtVG NkCBR7DEhlfL78mRQlLFXp SMBevBGejD5OQZZfJVU9AB chiN95nTPxGE7OHIBfTVJ5 DYMzwYLbKHZ4XI6cjH6ByR == INTRAOPERATIVE u5ysiCGvYIHvrYF3HsObAE CONSULTATION (test code Aje1kzv3CwaKPbcSJnENlz = [id number]) wSMecyVabh11hPY2nC58BX 7iCUBhMtY0LNLltbP5Lbs8 GZWsSWSivNYlK125c4apc5 udwtAfeCD1eTbjVHSgpyic LuJ9EQxsZBVldechFBn1GI jfAJZurHE1LJJkrDZzW8Ei HSJhAQ0fjyg7EKR6NEkcUF XfLyT3BPJtkUCgJNXcaJfo AWlqu169URR7KwGbLVGxry B5NTpyZFFhG5LnS9ItAWxe OSN4FJRvUZJhMDEwOHPjQU CvICflxmI2v9nwABZpdYNh JBR5VOhzxNJsRDKtAMVzMT xkYiBPVlIgIiBaUjQzODI3 HEIsYTh1WYfuZ7PFLFFaHH V9QAIhHcKpBwM2FXk0PFOM Gk6wPER8Wtl1MTJ8FPO1Uk M7GRdtlFPwUPdjYwpbCOpb RJBbpBCnRZhkegQ0PMOqQS tbGSXlQkZzFV7uSBjqwLIu zY1lzKFsENTbJlZ7IPKiiR ZqPKM7YW2rsRzkQDHfQ4Nd Y0PhtdX8FLAsti7= MICROSCOPIC DESCRIPTION e7jtgUCtWACrfXD5SjEvUC (test code = 3371) Fps8jxa0WrwLMenIKpYEha kBZmijGtlx11uIH4aR88FY 3tBCOuAxE4IPKjkiU9Grd2 KWPaYRDqwXDfH960p9hnu3 rqrdVvtMA9tGsqORKedfow UlZ0WTmjVFTvncmkVKy4KE jmRHXxqEP8NCSqvYTqL8Ep GPCxNO6tysy2DLR6GKppMW PiGfT6EQZcaRLsCKGsvWge EIcaf102TBZ7RrMcZGXtad UzrBtamP2nYoKaQRYPo2Qz XACabVflVDAsWK2dgCCdjG == Gross assessment was [facility] performed at ([facility], = 2777) Department of Pathology, [address] [place] [address], Technical component was [facility] performed at ([facility], = 2778) Department of Pathology, [address] [place] [address], Professional component [facility] was performed at ([facility], code = 2779) Department of Pathology, [address] [place] [address], [facility] [id number] 22:06:37 Test Item Value Reference Range Interpretation Comments Case Report (test code Surgical Pathology = 104) Report Case: [id number] Authorizing Provider: Eduardo Calderon MD Collected: 02/27/2022 01:55 PM Ordering Location: [facility] Received: 02/28/2022 08:53 AM SERVICES Pathologist: Whitney Cortés MD Specimen: Explant, previous leads DIAGNOSIS (test code = z3gioTBoZTEzf4qbVJSesY 3220) FuZzEwMzNcZnRuYmpcdWMx IHtccnRmMVxlcGljOTYwMV aegiDtICTzyFVvL6Zesotr BNsqJK0pIY3huRskvPBbpV SiSPIyUiOmc0qyu254uUQv y0jxQLVClmbkxBk8uShgO6 7zx1R5ZmxgS62adKFeCQT7 IOVoFIHlyPXaCTEpABM5SE WucWIgJ1grQKUyMH0vmdbr LUiwMGdbEZKfaOZ7VJOzbN ErE2WxGUTpVOnkUCFiqjr5 JwGuWm4hgSJvaGzoBSneUY JkXHBsYWluXGZzMjAgTUVE JDYJLSDIHEMZP3HtMTNQJE 6LEOSVQ4KVONPJHV1JAwCE XGxpbmUgICAgICAgICAgIC MpHN0ERl0XWbXOJTGZSToM SUNBVElPTiBPTkxZIChQTE RQD2KqL1PMXKzZO8GJTOKR J2QEAKJBGY8YTFudWGM6f3 xydGYxXHNzdGUxODAwMFxh bnNpXGRlZmxhbmcxMDMzXG Z8epOhTNHqXYkyZRSwNLoj Et4gfDJwhSngYsHjCYKmf2 ohsaVEvlqpoNr2f2haHMTk SdU8mPYeSAthV2hbjrJinZ WpNCRwWQg6jE90RLDtxS4k zTViXHxqcyBuWgW6XUenUS ZfOoL1YTAtyYRzVYMdI6mi ZWQwXGdyZWVuMFxibHVlMC C6mRvgf9F7oXCwxPGgdJxc TzYtRgWkOhMBm2UnQGu0bS zbF2AlGQAmPjF4oYBgFEQx UXeeAYQfYUEhfnL2gE65GM rychL3jBRoz3Guw13qt739 oS3psPRhNXZ1KOGuYKNuqX MhZFKeVZI9NFFqmZXlG1zz AAJbLH9dblumYMsbNKemPH LokSU0YVRloMQtI6DgFRFc YXpmBKUvqwu9AnQbQo8rtN EckJpuBMlhx4vas3oheSZf Bem9OANzUpQmPtjlTTayv5 Fos4xuMMLkvv5ePDG3yXKm rRxjo0N6gAZcKFAdqUYtJN AtOL0hiIYjKQPfvP5hayim XHBnYnJkcmhlYWRccGdicm WkJk6qsTihJEO8ZCobK0cq gY8lQvE7XYgaJ2ukhZ3uIP c0WQjhRKVzxSR8egI1PDUg tIGtU3JvuL2gCRDiWM3xbl j3o7qyGAL9FKkyPIPtAzR9 feU8NYLlwAQnVZOobQjpSA qwi666YVW8SyEkAQGrp2Gp U9VelBanS20wwUkwC14xYD MbqNuttD5yvMkgdF6gFcQc UqYqDBttjLosDR0nMKLsJ0 furKFjIWHbBZAkC9ysZvUq gD4iwWheHGxvxdWoBMRjPj u8HQDozTDuDRSfRhl9IFWu RPVqK56bctazBLN6sW2zm9 ubm7ZsLCjzYGJ9JVYuu81d ECywgjY8MNkiSu40SJmrMA D3FImvCXH1iH== CPT Code(s) (test code h8dwpZYtWFWkmNM8ZrCiUT = 3357) Jgx2uru0WwlOPpxZTlHPey yAOlkcQurr73oNM4eO59OP 5nKMPuEdY0CPUxlcV0Bsg4 PEIwZKXceHBoG751g8xyt1 fuulNdiLB2fUpaMQAyojql SoN0HAmwTEFfkjqxZCq0LN qpVJMpiMS8YLFllAQaE9Sy SCGgPL2wuqy0XUK2RBszEE RoSuD6OBZrfLYvGDBifEun IVweq407TZZ7DzOiDRTgwb EqpSktfR1hBuGuWGZ3XKYm MFxwYXJ9 GROSS DESCRIPTION (test e3ictQTrOCJqrNTICYJgVb code = [id number]) itbiNkGCPmaHTaU7Idwifx QVjaFX9iUF6xfLdmuXSupD CjRB2JCYCgOkFlGNSomMNp xvBmQoJgAOXngKGkiYB5AT StMS2srxzdLJzhSVoqTGGe zoN5HQRsoSJxN5AkOLEgJF 0anggaSIB9EMtsvA7aymUI RpvpOe2mwTOvoTyjYqAvIz NoYXJzZXQwXGZuaWwgQXJp NSv2qK5FLffpRQX0HPPGQc mfNSXiYE1Fw8nzXPDykTOw ACS4FAqqkGYdLWVaIMCiPW h6SCTnTNhreZPjKD1leOkq EodeyQdkl9AtoAKdFKmzPW AqJFIhCUveVKXxTW4XYgNh VGsBWRZ9Lsj3LiM2CAx5TR VFFgJsMkFlHawiGSZ3BRTl FZc1URd1LGsUUcX4JYY3JX WbIVDvNWFbVsDeOCc3IWBn XFxmIEFyaWFsIFxcZmwgXF obK88foAzcrS0hOC5eQDnp yHBocF5lyTRsOA7EWLZelD URMFT2FS5lLMSEXcfyuXUy QKLmpRqmHSqjtB8eXR9ZTE l3ptZkJNRyXiBgUyBdVDa6 IBZcTkFzw4kuhQOxNDzbLK G4pKUpSHXymLjhcvAucpGb ST2wSPFpD7Yuo7wbeiGjsT 8oEWHqMX7iVRMdhUMoRD63 VmHypkQuLxD5rkKwb8e5F2 TghEune0kagNoehRrhDB7e kHKykWXqDHJiHV5juLNveW uwHNloATLaYU0ePCA2zpon AiA2WJHwvMWmemChKK9edD fio9j4lFWgnPGqJJFuwwGu BaHgGGQaATIqTU4iEA2jWE AiKZZvj50qCXcczIqhNdE7 aYY0gTOfCFBrDG9asAOnLO 22AVTqGEzkAXjme7xmgFWm w4peiEqjyHekQK1tvAJqrG QaDZXguoJeI39hEe4gvHQw AKPqU0vwdJPih3KyoA8nXG AyI15ahE1tfSKoS9KbOVSk HOGlIENiCQ4leJYhGE6bLO XrAzHtjU1bIQBgIKQkIVCe ZSBubyBpZGVudGlmaWFibG DlxE9mC5QdiEXze48uUuBh Eo0rn2ZbsGveelEzYXYqDO I2Zp1qhLHkON6pQVNtfQPk R7AsDBTdvt6lhmVytlg2Hv EyO4Dxm5WbnChksR8lmuVn lNWbRNYpARDlg2PyAuisVY VlZRyqjMEiSL0PD8Jnx1Db hsNsQBMSgYYpc1D2NDJLZG JpFL8ZWeTYEUCvHCCGTBpQ ClxwbGFpblxlcGljTmVzdE RmNuJjqTyeeL74WBNilHIp TGQ1UI5zYOKuplbrMRCsSL BhWKQ5ZHbgaG52nZXbSKHg VMMqaFQnjH9ISGOkEPI1QT eqxX91dNXsJW5PKRJnLFG5 ZTSbpOFpQCL6PD8ksB7JrB == INTRAOPERATIVE v8jncIQeLHQkwMS5BbAfRP CONSULTATION (test code Lfn3xww1VksNStfDIxNGvz = [id number]) qYEmgtHxsy77sPH6aZ80AN 1fAAZhDjX0RWPegsQ6Vnk9 TQYcTDQmzQZrG787w6xzq0 nkloYkuPF5kIjiFTGwedfu ZeG8GMgoNLXaijrhBSn6GD suDCBalGV0NBAmpRVcW4Se OTRxLT4krde4HEU1YXoiBU CwRlE6WVWtzAQkLDZviIhh FHkcm795ZND7YjCgHTAbld I4ZRugPGTdW9LdE8BpYJtm UVD8YXCpALDxOOPdCYUhYJ KgMTbaxyE5e7foNCSxxIYi LVY1GSqwxALyNGDyKKNjTB xkYiBPVlIgIiBaUjQzODI3 RRWyJAb0ANdgU0PBCQVgMD N3EYQwGqOiJbB2CTh0NYBN Ib0qHBL7Rvh0ADH9SNT2Zr Y0HQvmuZMdUPrsPzroXFpp SCRhnGYhAGfbqeK3TTPdYL etBAOfRfZnQD2pNNgjvTHr aQ4uvWZtOVZeRnA9DVOfhM TfWJB4FA7pvHvqSFSgP3Ig H7TgabC1OHRpab6= MICROSCOPIC DESCRIPTION s2vfxYWfKKGchTK3UoXmLK (test code = 3371) Ury0frd6YisEXccFMzZHme hZMdctBfji77aUN9rX86JT 9xUGCaDoO1HQOdctN5Bfp8 JIKpBGXbiGPgU846i3bai2 cofnKblEV6aElpGREazsfc FhA4DDotQKZggfzuOTt5LE kmKOKzwUN0MTTscXCzF0Nc VSIpKQ6gfex0ESL4XHolBM UlPiE3HDJqmDWtDTKpsTcq ACzta554WYH9BhCaPRWodn AjoStiuT8xCjJaRAIDd1Kg GCMvlUtrPMKgZY1llSCypC == Gross assessment was [facility] performed at ([facility], = 2777) Department of Pathology, [address] [place] [address], Technical component was [facility] performed at ([facility], = 2778) Department of Pathology, [address] [place] [address], Professional component [facility] was performed at ([facility], code = 2779) Department of Pathology, [address] [place] [address], [facility] HospitalT[facility] [id number] 22:06:37Surgical Pathology Report Case: [id number] Authorizing Provider: Eduardo Calderon MD Collected: 02/27/2022 01:55 PM Ordering Location: [facility] Received: 02/28/2022 08:53 AM SERVICES Pathologist: Whitney Cortés MD Specimen: Explant, previous leads CHAIN PULLER, SPINAL CORD, REMOVAL -GROSS IDENTIFICATION ONLY (PLEASE SEE GROSS DESCRIPTION) Signing Pathologist Direct Phone Line: [phone] signed by Whitney Cortés MD on 03/01/2022 at 10:06 [id number]. Explant.Received fresh labeled with patient's name accession number and "explant" are 2 translucent, synthetic material tometallic leads measuring 61 cm in length with diameter of less than 0.1 cm along with 2 tubular translucent to duran-white synthetic material foreign bodies each measuring 3 cm in length and a diameter of 0.2 cm. There are no identifiable inscriptions. No sections are submitted. This case gross only. Gross photographs are taken.Bethany Barnes EdD, [facility] ([facility])Aziza Juárez.Not applicable.[facility], Department of Pathology, [address] [place] [address], Tel [facility], Department of Pathology, [address] [place] [address], XmcrjsLompoc Valley Medical Center, Department of Pathology, [address] [place] [address], AMGWI METABOLIC [id number] 05:10:22 Test Item Value Reference Range Interpretation Comments SODIUM (BEAKER) 140 meq/L 136-145 (test code = 381) POTASSIUM (BEAKER) 4.7 meq/L 3.5-5.1 (test code = 379) CHLORIDE (BEAKER) 108 meq/L 98-107 H (test code = 382) CO2 (BEAKER) (test 25 meq/L 22-29 code = 355) BLOOD UREA NITROGEN 9 mg/dL 7-21 (BEAKER) (test code = 354) CREATININE (BEAKER) 1.51 mg/dL 0.57-1.25 H (test code = 358) GLUCOSE RANDOM 121 mg/dL 70-105 H (BEAKER) (test code = 652) CALCIUM (BEAKER) 8.6 mg/dL 8.4-10.2 (test code = 697) EGFR (BEAKER) (test 63 mL/min/1.73 ESTIMA MIRZA GFR IS code = 1092) sq m NOT ACCURATE CREATININE CLEARANCE IN PREDICTING GLOMERULAR FILTRATION RATE . ESTIMATED GFR I S NOT APPLICABLE FOR DIALYSIS PATIEN TS. Billing Spec ID - PIAYA LCBC (HEMOGRAM ONLY)2022-02-28 04:50:35 Test Item Value Reference Range Interpretation Comments WHITE BLOOD CELL COUNT (BEAKER) 14.4 K/ L 3.5-10.5 H (test code = 775) RED BLOOD CELL COUNT (BEAKER) 5.34 M/ L 4.63-6.08 (test code = 761) HEMOGLOBIN (BEAKER) (test code = 14.7 GM/DL 13.7-17.5 410) HEMATOCRIT (BEAKER) (test code = 48.1 % 40.1-51.0 411) MEAN CORPUSCULAR VOLUME (BEAKER) 90.1 fL 79.0-92.2 (test code = 753) MEAN CORPUSCULAR HEMOGLOBIN 27.5 pg 25.7-32.2 (BEAKER) (test code = 751) MEAN CORPUSCULAR HEMOGLOBIN CONC 30.6 GM/DL 32.3-36.5 L (BEAKER) (test code = 752) RED CELL DISTRIBUTION WIDTH 13.5 % 11.6-14.4 (BEAKER) (test code = 412) PLATELET COUNT (BEAKER) (test 240 K/CU MM 150-450 code = 756) MEAN PLATELET VOLUME (BEAKER) 10.6 fL 9.4-12.4 (test code = 754) NUCLEATED RED BLOOD CELLS 0 /100 WBC 0-0 (BEAKER) (test code = 413) FL, FLUORO, NON-SPECIFIC, UP TO 1 [id number] 13:55:00Reason for exam:- >SPINAL CORD STIMULATOR [facility] : 1980 Sex: MAn imaging unit was utilized for this procedure. No radiologist interpretation was requested. Refer to the EMR for findings. Refer to PACS for any patient radiation dose information.RAD, CHEST, 2 [id number] 11:34:00Reason for exam:->chronic pain syndrome, [facility] : 1980 Sex: MFINAL REPORT Comparison: 09/19/2020 History: Chronic pain syndrome, preoperative examination Findings: Lungs clear. No pleural effusions or pneumothorax. The heart shadow and pulmonary vascularity are normal in appearance. The thoracic aorta appears normal in caliber. Spinal stimulation hardware is present, with the leads projecting at the T8 and T9 levels. Impression: No evidence of acute cardiopulmonary disease. Signed: Alycia Valente MDReport Verified Date/Time: 02/13/2022 11:34:37 Reading Location: [facility] Radiology Reading Room Electronically signed by: ALYCIA VALENTE MD on02/13/2022 11:34 AMBASIC METABOLIC [id number] 10:19:22 Test Item Value Reference Range Interpretation Comments SODIUM (BEAKER) 140 meq/L 136-145 (test code = 381) POTASSIUM (BEAKER) 4.0 meq/L 3.5-5.1 (test code = 379) CHLORIDE (BEAKER) 108 meq/L 98-107 H (test code = 382) CO2 (BEAKER) (test 24 meq/L 22-29 code = 355) BLOOD UREA NITROGEN 12 mg/dL 7-21 (BEAKER) (test code = 354) CREATININE (BEAKER) 1.57 mg/dL 0.57-1.25 H (test code = 358) GLUCOSE RANDOM 208 mg/dL 70-105 H (BEAKER) (test code = 652) CALCIUM (BEAKER) 8.7 mg/dL 8.4-10.2 (test code = 697) EGFR (BEAKER) (test 60 mL/min/1.73 ESTIMA MIRZA GFR IS code = 1092) sq m NOT ACCURATE CREATININE CLEARANCE IN PREDICTING GLOMERULAR FILTRATION RATE . ESTIMATED GFR I S NOT APPLICABLE FOR DIALYSIS PATIEN TS. Billing Spec ID - NORM [id number] 10:12:02 Test Item Value Reference Interpretation Comments Range Protime (test code = 13.4 See_Comment [Autom ated 5902-2) message] The system which generated this result transmitted reference range : 11.9 - 14.2 seconds. The reference range was not used to interpret this result as normal/abnormal . INR (test code = 1.04 See_Comment [Automated 6301-6) message] The system which generated this result transmitted reference range : <=5.90. The reference range was not used to interpret this result as normal/abnormal . PTT (test code = 31.8 See_Comment [Automated 64743-1) message] The system which generated this result transmitted reference range : 22.5 - 36.0 seconds. The reference range was not used to interpret this result as normal/abnormal . ENE (test code = RECOMMENDED ENE) COUMADIN/WARFARIN INR THERAPY RANGESSTANDARD DOSE: 2.0 - 3.0 Includes: PROPHYLAXIS for venous thrombosis, systemic embolization; TREATMENT for venous thrombosis and/or pulmonary embolus.HIGH RISK: Target INR is 2.5-3.5 for patients with mechanical heart valves. Lab Interpretation Normal (test code = 41371-7) [facility] HospitalPT/[id number] 10:12:02 Test Item Value Reference Interpretation Comments Range Protime (test code = 13.4 See_Comment [Autom ated 5902-2) message] The system which generated this result transmitted reference range : 11.9 - 14.2 seconds. The reference range was not used to interpret this result as normal/abnormal . INR (test code = 1.04 See_Comment [Automated 6301-6) message] The system which generated this result transmitted reference range : <=5.90. The reference range was not used to interpret this result as normal/abnormal . PTT (test code = 31.8 See_Comment [Automated 28046-6) message] The system which generated this result transmitted reference range : 22.5 - 36.0 seconds. The reference range was not used to interpret this result as normal/abnormal . ENE (test code = RECOMMENDED ENE) COUMADIN/WARFARIN INR THERAPY RANGESSTANDARD DOSE: 2.0 - 3.0 Includes: PROPHYLAXIS for venous thrombosis, systemic embolization; TREATMENT for venous thrombosis and/or pulmonary embolus.HIGH RISK: Target INR is 2.5-3.5 for patients with mechanical heart valves. Lab Interpretation Normal (test code = 86412-3) [facility] HospitalPT/[id number] 10:12:02 Test Item Value Reference Interpretation Comments Range Protime (test code = 13.4 See_Comment [Autom ated 5902-2) message] The system which generated this result transmitted reference range : 11.9 - 14.2 seconds. The reference range was not used to interpret this result as normal/abnormal . INR (test code = 1.04 See_Comment [Automated 6301-6) message] The system which generated this result transmitted reference range : <=5.90. The reference range was not used to interpret this result as normal/abnormal . PTT (test code = 31.8 See_Comment [Automated 01757-8) message] The system which generated this result transmitted reference range : 22.5 - 36.0 seconds. The reference range was not used to interpret this result as normal/abnormal . ENE (test code = RECOMMENDED ENE) COUMADIN/WARFARIN INR THERAPY RANGESSTANDARD DOSE: 2.0 - 3.0 Includes: PROPHYLAXIS for venous thrombosis, systemic embolization; TREATMENT for venous thrombosis and/or pulmonary embolus.HIGH RISK: Target INR is 2.5-3.5 for patients with mechanical heart valves. Lab Interpretation Normal (test code = 91515-3) [facility] HospitalPT/[id number] 10:12:02 Test Item Value Reference Interpretation Comments Range Protime (test code = 13.4 See_Comment [Autom ated 5902-2) message] The system which generated this result transmitted reference range : 11.9 - 14.2 seconds. The reference range was not used to interpret this result as normal/abnormal . INR (test code = 1.04 See_Comment [Automated 6301-6) message] The system which generated this result transmitted reference range : <=5.90. The reference range was not used to interpret this result as normal/abnormal . PTT (test code = 31.8 See_Comment [Automated 43975-1) message] The system which generated this result transmitted reference range : 22.5 - 36.0 seconds. The reference range was not used to interpret this result as normal/abnormal . ENE (test code = RECOMMENDED ENE) COUMADIN/WARFARIN INR THERAPY RANGESSTANDARD DOSE: 2.0 - 3.0 Includes: PROPHYLAXIS for venous thrombosis, systemic embolization; TREATMENT for venous thrombosis and/or pulmonary embolus.HIGH RISK: Target INR is 2.5-3.5 for patients with mechanical heart valves. Lab Interpretation Normal (test code = 11526-7) [id number] 10:12:02 Test Item Value Reference Interpretation Comments Range Protime (test code = 13.4 See_Comment [Autom ated 5902-2) message] The system which generated this result transmitted reference range : 11.9 - 14.2 seconds. The reference range was not used to interpret this result as normal/abnormal . INR (test code = 1.04 See_Comment [Automated 6301-6) message] The system which generated this result transmitted reference range : <=5.90. The reference range was not used to interpret this result as normal/abnormal . PTT (test code = 31.8 See_Comment [Automated 12335-8) message] The system which generated this result transmitted reference range : 22.5 - 36.0 seconds. The reference range was not used to interpret this result as normal/abnormal . ENE (test code = RECOMMENDED ENE) COUMADIN/WARFARIN INR THERAPY RANGESSTANDARD DOSE: 2.0 - 3.0 Includes: PROPHYLAXIS for venous thrombosis, systemic embolization; TREATMENT for venous thrombosis and/or pulmonary embolus.HIGH RISK: Target INR is 2.5-3.5 for patients with mechanical heart valves. Lab Interpretation Normal (test code = 22772-5) [facility][id number] 10:12:02 Test Item Value Reference Interpretation Comments Range Protime (test code = 13.4 See_Comment [Autom ated 5902-2) message] The system which generated this result transmitted reference range : 11.9 - 14.2 seconds. The reference range was not used to interpret this result as normal/abnormal . INR (test code = 1.04 <=5.90 6301-6) PTT (test code = 31.8 See_Comment [Automated 12991-7) message] The system which generated this result transmitted reference range : 22.5 - 36.0 seconds. The reference range was not used to interpret this result as normal/abnormal . ENE (test code = RECOMMENDED ENE) COUMADIN/WARFARIN INR THERAPY RANGESSTANDARD DOSE: 2.0 - 3.0 Includes: PROPHYLAXIS for venous thrombosis, systemic embolization; TREATMENT for venous thrombosis and/or pulmonary embolus.HIGH RISK: Target INR is 2.5-3.5 for patients with mechanical heart valves. Lab Interpretation Normal (test code = 64749-9) [facility]/[id number] 10:12:02 Test Item Value Reference Interpretation Comments Range Protime (test code = 13.4 See_Comment [Autom ated 5902-2) message] The system which generated this result transmitted reference range : 11.9 - 14.2 seconds. The reference range was not used to interpret this result as normal/abnormal . INR (test code = 1.04 <=5.90 6301-6) PTT (test code = 31.8 See_Comment [Automated 37326-4) message] The system which generated this result transmitted reference range : 22.5 - 36.0 seconds. The reference range was not used to interpret this result as normal/abnormal . ENE (test code = RECOMMENDED ENE) COUMADIN/WARFARIN INR THERAPY RANGESSTANDARD DOSE: 2.0 - 3.0 Includes: PROPHYLAXIS for venous thrombosis, systemic embolization; TREATMENT for venous thrombosis and/or pulmonary embolus.HIGH RISK: Target INR is 2.5-3.5 for patients with mechanical heart valves. Lab Interpretation Normal (test code = 99891-4) [facility][id number] 10:12:02 Test Item Value Reference Interpretation Comments Range Protime (test code = 13.4 See_Comment [Autom ated 5902-2) message] The system which generated this result transmitted reference range : 11.9 - 14.2 seconds. The reference range was not used to interpret this result as normal/abnormal . INR (test code = 1.04 <=5.90 6301-6) PTT (test code = 31.8 See_Comment [Automated 90858-6) message] The system which generated this result transmitted reference range : 22.5 - 36.0 seconds. The reference range was not used to interpret this result as normal/abnormal . ENE (test code = RECOMMENDED ENE) COUMADIN/WARFARIN INR THERAPY RANGESSTANDARD DOSE: 2.0 - 3.0 Includes: PROPHYLAXIS for venous thrombosis, systemic embolization; TREATMENT for venous thrombosis and/or pulmonary embolus.HIGH RISK: Target INR is 2.5-3.5 for patients with mechanical heart valves. Lab Interpretation Normal (test code = 03829-7) [facility]/[id number] 10:12:02 Test Item Value Reference Range Interpretation Comments PROTIME (BEAKER) (test 13.4 seconds 11.9-14.2 code = 759) INR (BEAKER) (test 1.04 See_Comment [Automat ed code = 370) message] The [employer] stem which generated this result transmitted reference range : <=5.90. The reference range was not used to interpret this result as normal/abnormal . PARTIAL THROMBOPLASTIN 31.8 seconds 22.5-36.0 TIME (BEAKER) (test code = 760) RECOMMENDED COUMADIN/WARFARIN INR THERAPY RANGESSTANDARD DOSE: 2.0 - 3.0 Includes: PROPHYLAXIS for venous thrombosis, systemic embolization; TREATMENT for venous thrombosis and/or pulmonary embolus.HIGH RISK: Target INR is 2.5-3.5 for patients with mechanical heart valves.PROTHROMBIN TIME/[id number] 10:11:18 Test Item Value Reference Range Interpretation Comments PROTIME (BEAKER) 13.4 seconds 11.9-14.2 (test code = 759) INR (BEAKER) (test 1.04 See_Comment [Automat ed message] code = 370) The system [employer] generated this result transmitted ref erence range: <=5.90. The reference range was not used to int erpret this result as normal/abnormal . RECOMMENDED COUMADIN/WARFARIN INR THERAPY RANGESSTANDARD DOSE: 2.0 - 3.0 Includes: PROPHYLAXIS for venous thrombosis, systemic embolization; TREATMENT for venous thrombosis and/or pulmonary embolus.HIGH RISK: Target INR is 2.5-3.5 for patients with mechanical heart valves.URINALYSIS W/ REFLEX URINE CULTURE 2022-02-13 10:10:02 Test Item Value Reference Range Interpretation Comments COLOR (BEAKER) (test code = 470) Yellow CLARITY (BEAKER) (test code = 469) Clear SPECIFIC GRAVITY UA (BEAKER) (test 1.019 1.001-1.035 code = 468) PH UA (BEAKER) [...] WBC UA (BEAKER) (test code = 520) 1 /HPF BACTERIA (BEAKER) (test code = 517) None Seen MUCUS (BEAKER) (test code = 1574) Rare CRYSTALS, URINE (BEAKER) (test code None Seen = 1521) AMORPHOUS CRYSTALS (BEAKER) (test Rare code = 1584) SOURCE(BEAKER) (test code = 2795) Billing Spec ID - [auto]Billing Spec ID [facility]FFERENTIAL 2022-02-13 09:55:37 Test Item Value Reference Range Interpretation Comments WHITE BLOOD CELL COUNT (BEAKER) 5.8 K/ L 3.5-10.5 (test code = 775) RED BLOOD CELL COUNT (BEAKER) 5.71 M/ L 4.63-6.08 (test code = 761) HEMOGLOBIN (BEAKER) (test code = 15.7 GM/DL 13.7-17.5 410) HEMATOCRIT (BEAKER) (test code = 51.7 % 40.1-51.0 H 411) MEAN CORPUSCULAR VOLUME (BEAKER) 90.5 fL 79.0-92.2 (test code = 753) MEAN CORPUSCULAR HEMOGLOBIN 27.5 pg 25.7-32.2 (BEAKER) (test code = 751) MEAN CORPUSCULAR HEMOGLOBIN CONC 30.4 GM/DL 32.3-36.5 L (BEAKER) (test code = 752) RED CELL DISTRIBUTION WIDTH 13.3 % 11.6-14.4 (BEAKER) (test code = 412) PLATELET COUNT (BEAKER) (test 216 K/CU MM 150-450 code = 756) MEAN PLATELET VOLUME (BEAKER) 10.3 fL 9.4-12.4 (test code = 754) NUCLEATED RED BLOOD CELLS 0 /100 WBC 0-0 (BEAKER) (test code = 413) NEUTROPHILS RELATIVE PERCENT 71 % (BEAKER) (test code = 429) LYMPHOCYTES RELATIVE PERCENT 23 % (BEAKER) (test code = 430) MONOCYTES RELATIVE PERCENT 5 % (BEAKER) (test code = 431) EOSINOPHILS RELATIVE PERCENT 1 % (BEAKER) (test code = 432) BASOPHILS RELATIVE PERCENT 0 % (BEAKER) (test code = 437) NEUTROPHILS ABSOLUTE COUNT 4.11 K/ L 1.78-5.38 (BEAKER) (test code = 670) LYMPHOCYTES ABSOLUTE COUNT 1.30 K/ L 1.32-3.57 L (BEAKER) (test code = 414) MONOCYTES ABSOLUTE COUNT (BEAKER) 0.31 K/ L 0.30-0.82 (test code = 415) EOSINOPHILS ABSOLUTE COUNT 0.05 K/ L 0.04-0.54 (BEAKER) (test code = 416) BASOPHILS ABSOLUTE COUNT (BEAKER) 0.01 K/ L 0.01-0.08 (test code = 417) IMMATURE GRANULOCYTES-RELATIVE 0 % 0-1 PERCENT (BEAKER) (test code = 2801) CT, BRAIN, WITHOUT [id number] 23:06:00Unlisted Reason for Exam - Click Yes and Enter Reason Below->YesUnlisted Reason for Exam->fall, head trauma [facility] 1980 Sex: MFINAL REPORT CT Head without contrast CLINICAL HISTORY: Unlisted Reason forExamfall, head trauma TECHNIQUE: Contiguous axial images through the head without contrast. This exam was performed according to the departmental dose optimization program which includes automated exposure control, adjustment of the mA and/or kV according to the patient size, and/or use of an iterative reconstruction technique. COMPARISON: None FINDINGS: There is no CT evidence of acute infarct or intracranial hemorrhage. Ventricles are normal in size and configuration. There is no hydrocephalus, midline shift, or apparent mass effect. Basilar cisterns are patent. There are no extra-axial fluid collections. The skull is intact. The visualized paranasal sinuses are well-aerated. Intraorbital contents are unremarkable. Small subgaleal hematoma along the right frontal calvarium. IMPRESSION: No CT evidence of acute infarct, hemorrhage, or hydrocephalus. Small subgaleal hematoma along the right frontal calvarium. No underlying calvarial fracture. Signed: Maryann Mckay [facility] Verified Date/Time: 02/02/2022 23:06:11 SARS-COV2/RT-PCR ([facility]) 2022-01-22 18:25:00 Test Item Value Reference Range Interpretation Comments SARS-COV2/RT-PCR Negative Negative The SARS-Co V-2 target (test code = nucleic acids a re not 4390371) detected in thi s specimen. Negative result s do not preclude SARS-C oV-2 infection and s hould not be used as the spencer e basis for patient managem ent decisions. Nega tive results must be combine d with clinical observ ations, patient history , and epidemiological information. A false negativ e result may occur if a spec imen is improperly leonel ected, transported or handled. This SARS CoV-2 test is a rapid, real-time RT-PC R test intended for th e qualitative detection of nu cleic acid from SARS-CoV-2 in a nasopharyngeal swab specimen collected from individuals suspected of CO VID-19 by their healthcar e provider. This test has been authorized by FDA under an EUA for use by authorized laboratories. This test is only authorized for the duration of the declaration that circumstances exist justifying the authorization of emergency use of in vitro diagnostic tests for detection and/or diagnosis of COVID-19 under Section 564(b)(1) of the Federal Food, Drug and Cosmetic Act, 21 U.S.C. 360bbb-3(b)(1), unless the authorization is terminated or revoked sooner. Fact Sheet for Healthcare Providers: https://www.[employer] m/Documents/Xpert%20Xpress%20SARS%20CoV-2/Fact%20Sheets/302-3802%32UFPO-BLS-2%20 HEALTHCARE%20PROVIDERS%20FACT%20SHEET.pdf Fact Sheet for Healthcare Patients: https://www.[employer]/Documents/Xpert%20Xp ress%20SARS%20CoV-2/Fact%20Sheets/302-3801%19YETE-KSQ-6%20PATIENT%20FACT%20SHEET .pdfRAD, SPINE, LUMBAR, 2 OR 3 [id number] 14:52:00Reason for exam:->Back pain and patient feels the spinal cord stimulator is loose. [facility] : 1980 Sex: MFINAL REPORT Exam: RAD, SPINE, LUMBAR, 2 OR 3 VIEWSDate: 01/22/2022 2:50 PM History: Back painComparison: None DISCUSSION/IMPRESSION: AP, lateral, and cone-down views of the lumbar spine were obtained. Neurostimulator device in place. There are five non-rib bearing lumbar vertebra. There are no fractures or subluxations. Mild lower lumbar facet arthrosis. AP alignment is preserved. Intervertebral disc space heights are grossly preserved. Vertebral body heights are grossly preserved. Signed: Severiano Alexis Verified Date/Time: 01/22/2022 14:52:02 Reading Location: [facility] Reading Room BASIC METABOLIC [id number] 14:43:07 Test Item Value Reference Range Interpretation Comments SODIUM (BEAKER) 139 meq/L 135-148 (test code = 381) POTASSIUM (BEAKER) 3.9 meq/L 3.6-5.5 (test code = 379) CHLORIDE (BEAKER) 103 meq/L 98-106 (test code = 382) CO2 (BEAKER) (test 27 meq/L 24-32 code = 355) BLOOD UREA NITROGEN 10 mg/dL 10-26 (BEAKER) (test code = 354) CREATININE (BEAKER) 1.34 mg/dL 0.50-1.20 H (test code = 358) GLUCOSE RANDOM 115 mg/dL 70-110 H (BEAKER) (test code = 652) CALCIUM (BEAKER) 8.8 mg/dL 8.5-10.5 (test code = 697) EGFR (BEAKER) (test 72 mL/min/1.73 ESTIMA MIRZA GFR IS code = 1092) sq m NOT ACCURATE CREATININE CLEARANCE IN PREDICTING GLOMERULAR FILTRATION RATE . ESTIMATED GFR I S NOT APPLICABLE FOR DIALYSIS PATIEN TS. CBC W/PLT COUNT & AUTO [id number] 14:32:27 Test Item Value Reference Range Interpretation Comments WHITE BLOOD CELL COUNT (BEAKER) 7.5 K/ L 4.0-10.0 (test code = 775) RED BLOOD CELL COUNT (BEAKER) 6.00 M/ L 4.20-5.80 H (test code = 761) HEMOGLOBIN (BEAKER) (test code = 16.5 GM/DL 13.0-16.8 410) HEMATOCRIT (BEAKER) (test code = 50.7 % 40.0-50.0 H 411) MEAN CORPUSCULAR VOLUME (BEAKER) 84.5 fL 82.0-98.0 (test code = 753) MEAN CORPUSCULAR HEMOGLOBIN 27.5 pg 27.0-33.0 (BEAKER) (test code = 751) MEAN CORPUSCULAR HEMOGLOBIN CONC 32.6 GM/DL 32.0-36.0 (BEAKER) (test code = 752) RED CELL DISTRIBUTION WIDTH 12.7 % 10.3-14.2 (BEAKER) (test code = 412) PLATELET COUNT (BEAKER) (test 281 K/CU MM 150-430 code = 756) MEAN PLATELET VOLUME (BEAKER) 8.1 fL 6.5-10.5 (test code = 754) NEUTROPHILS RELATIVE PERCENT 70 % (BEAKER) (test code = 429) LYMPHOCYTES RELATIVE PERCENT 22 % (BEAKER) (test code = 430) MONOCYTES RELATIVE PERCENT 6 % (BEAKER) (test code = 431) EOSINOPHILS RELATIVE PERCENT 1 % (BEAKER) (test code = 432) BASOPHILS RELATIVE PERCENT 1 % (BEAKER) (test code = 437) NEUTROPHILS ABSOLUTE COUNT 5.27 K/ L 1.80-8.00 (BEAKER) (test code = 670) LYMPHOCYTES ABSOLUTE COUNT 1.66 K/ L 1.48-4.50 (BEAKER) (test code = 414) MONOCYTES ABSOLUTE COUNT (BEAKER) 0.44 K/ L 0.00-1.30 (test code = 415) EOSINOPHILS ABSOLUTE COUNT 0.07 K/ L 0.00-0.50 (BEAKER) (test code = 416) BASOPHILS ABSOLUTE COUNT (BEAKER) 0.04 K/ L 0.00-0.20 (test code = 417) FL, FLUORO, NON-SPECIFIC, UP TO 1 [id number] 10:53:00Reason for exam:- >INTRATHECAL PAIN PUMP TRIAL [facility] 1980 Sex: MFINAL REPORT TECHNIQUE: Fluoroscopic images from neurologic procedure. INDICATION: Intrathecal pain pump trial. COMPARISON: None. IMPRESSION:Fluoroscopic images from neurologicprocedure, not obtained by the undersigned. Please refer to operative note for more details of the procedure and findings. Fluoroscopy time: 24 secondsNumber of images: 1 Signed: Campbell Kaba Verified Date/Time: 08/14/2021 10:53:02 Reading Location: [facility] Reading Room [address] [place] [address] FL, FLUORO, NON-SPECIFIC, UP TO 1 HOUR 2021-06-26 11:44:00Reason for exam:->INTRATHECAL PAIN PUMP TRIAL [facility] 1980 Sex: MFluoroscopic unit utilized for a procedure performed in the OR. No interpretation was requested. Refer to the operative report for findings. Refer to PACS for patient radiation dose information.FL, FLUORO, NON-SPECIFIC, UP TO 1 [id number] 08:55:00Reason for exam:->pain [facility] : 1980 Sex: MFluoroscopic unit utilized for a procedure performed in the OR. No interpretation was requested. Refer to the operative report for findings. Refer to PACS for patient radiation dose information.TISSUE [id number] 15:56:00Surgical Pathology Report Case: [id number] Authorizing Provider: Eduardo Calderon MD Collected: 10/05/2020 04:25 PM Ordering Location: [facility] Received: 10/06/2020 09:12 AM SERVICES Pathologist: Darci Starks MD Specimen: Explant, Electrodes PART A SPINAL CORD STIMULATOR ELECTRODE, REMOVAL:SPINAL CORD STIMULATOR ELECTRODE (GROSS DIAGNOSIS ONLY). Signing Pathologist Direct Phone Line: [phone] signed by Darci Starks MD on 10/10/2020 at 3:56 [id number] diagnosis: Spinal cord stimulator statusExplantReceived fresh labeled with the patient's name, accession number and "electrodes" are two metallic durna to duran-white tubular foreign bodies that measure 6.7 cm in length x 0.2 cm in diameter on average, which are consistent with electrodes. A gross photograph is taken. No sections are submitted. This case is for gross examination only. PA/pl [facility], Department of Pathology, [address] [place] [address], [facility], [address] [place] [address], [facility], [facility] of [facility], [address] [place] [address], [place], FLUORO, NON-SPECIFIC, UP TO 1 [id number] 16:30:00Reason for exam:->intrathecal pump[facility] : 1980 Sex: MFluoroscopic unit utilized for a procedure performed in the OR. No interpretation was requested. Refer to the operative report for findings. Refer to PACS for patient radiation dose information.RAD, CHEST, 2 [id number] 14:07:00Reason for exam:- >Spinal cord status, pre-op [facility] : 1980 Sex: MFINAL REPORT INDICATION: Spinal cord status, pre-op COMPARISON: None TECHNIQUE: Frontal and lateral views of the chest. FINDINGS: Lungs and pleura: Clear lungs. No effusion.Heart and mediastinum: Normal heart size. Unremarkable mediastinal contours.Osseous structures: No acuteabnormality.Additional findings: None. IMPRESSION: No acute intrathoracic abnormality. Signed: Nadege Collinseport Verified Date/Time: 09/19/2020 14:07:11 Reading [facility] URINALYSIS W/ REFLEX URINE [id number] 13:38:00 Test Item Value Reference Range Interpretation [...] = 1574) Few SOURCE(BEAKER) (test code = 6265) Billing Spec ID - [auto]Billing Spec ID - techBASIC METABOLIC [id number] 13:38:00 Test Item Value Reference Range Interpretation [...] 697) EGFR (BEAKER) (test 81 mL/min/1.73 ESTIMA MIRZA GFR IS code = 1092) sq m NOT ACCURATE CREATININE CLEARANCE IN PREDICTING GLOMERULAR FILTRATION RATE . ESTIMATED GFR I S NOT APPLICABLE FOR DIALYSIS PATIEN TS. Billing Spec ID - JATINDER CPT/[id number] 13:37:00 Test Item Value Reference Range Interpretation [...] is 2.5-3.5 for patients wiht mechanical heart valves.CBC W/PLT COUNT & AUTO [id number] 13:20:00 Test Item Value Reference Range Interpretation [...] PERCENT (BEAKER) (test code = 2801) TISSUE [id number] 13:00:00Surgical Pathology Report Case: [id number] Authorizing Provider: Eduardo Calderon MD Collected: 08/17/2020 08:40 AM Ordering Location: [facility] Received: 08/17/2020 10:07 AM SERVICES Pathologist: Eboni Renner MD Specimen: Other, Spinal Cord Stimulator; for ID only A. SPINAL CORD STIMULATOR, REMOVAL: - CHAIN PULLER FOR GROSS IDENTIFICATION ONLY Signing Pathologist Direct Phone Line: [phone] signed by Eboni Renner MD on 08/17/2020 at 1:00 [id number]: Malfunction of spinal cord stimulator, initial encounter. OtherReceived fresh labeled with the patient's name, accession number and "spinal cord stimulator" is a 5.2 x 5.2 x 0.8 cm metallic duran-piece of hardware, which is consistent with with a neural stimulator, and a 8.0 x 4.5 x 0.4 cm aggregate of metallic duran tubing. The following inscription is identified:[facility]SN [id number] gross photograph is taken. No sections are submitted. This case is for gross examination only. PA/pl NAFL, FLUORO, NON-SPECIFIC, UP TO 1 [id number] 09:16:00Reason for exam:->Spinal Cord Stimulator RevisionFluoroscopic unit utilized for a procedure performed in the OR. No interpretation was requested. Refer to the operative report for findings. Refer to PACS for patient radiation dose information.SARS-COV2/RT-PCR ([facility])2020-08-13 22:54:00 Test Item Value Reference Range Interpretation Comments SARS-COV2/RT-PCR (test Negative Not Detected, Negative, code = 1276162) See external report for linked test SARS-COV-2 PERFORMING LAB [facility] (test code = 7898793) Negative result for this test determines that [...] justifying the authorization of the emergency use ofin vitro diagnostic tests for detection and/or diagnosis of COVID-19 is terminated under Section 564(b)(2) of the Act or the EUA is revoked under Section 564(g) of the Act.Fact Sheet for Healthcare Prov iders:https://www.[employer]/sites/default/files/product/documents/Fact_Sheet_HC _Dmqniedxs_Ijvy_PKPO-EnH-3.pdfFact Sheet for Healthcare Patients:https://www.[employer]/sites/default/files/product/docume nts/Gtbk_Smxtw_Shlngcmi_Sass_PURE-OfS-2.pdfPerforming Laboratory:[facility], [place] [address]DFM, CHEST, 2 VIEWS 2020-08-12 16:53:00Reason for exam:->Malfunction [...] upper extremity.. IMPRESSION:No acute cardiopulmonary abnormalities. Signed: Edmundo Nolen MDReport Verified Date/Time: 08/12/2020 16:53:49 URINALYSIS W/ REFLEX URINE CULTURE 2020-08-12 15:52:00 Test Item Value Reference Range [...] = 516) SOURCE(BEAKER) (test code = 2795) Billing Spec ID - [auto]Billing Spec ID - techBASIC METABOLIC [id number] 15:50:00 Test Item Value Reference Range Interpretation [...] 697) EGFR (BEAKER) (test 79 mL/min/1.73 ESTIMA MIRZA GFR IS code = 1092) sq m NOT ACCURATE CREATININE CLEARANCE IN PREDICTING GLOMERULAR FILTRATION RATE . ESTIMATED GFR I S NOT APPLICABLE FOR DIALYSIS PATIEN TS. Billing Spec ID - [id number] 15:49:00 Test Item Value Reference Range Interpretation Comments PARTIAL THROMBOPLASTIN TIME 33.7 seconds 22.5-36.0 (BEAKER) (test code = 760) PROTHROMBIN TIME/[id number] 15:48:00 Test Item Value Reference Range Interpretation [...] is 2.5-3.5 for patients wiht mechanical heart valves.CBC W/PLT COUNT & AUTO [id number] 15:38:00 Test Item Value Reference Range Interpretation [...]
[2023-10-10] MEDS ORDERED: CYCLOBENZAPRINE 10 MG TAB ONE (22:25)
[2023-10-10] MEDS ORDERED: KETOROLAC 30 MG/ML INJ ONE (22:26)
[2023-10-10] MEDS ORDERED: ONDANSETRON 4 MG (ODT) TAB ONE (22:26)
[2023-10-10] MEDS ORDERED: MORPHINE 4 MG/ML SYR ONE (22:26)
--- NOTE | 2023-10-10 23:23 | EDPHYS ---
Physician Documentation [facility] Name: Harris Alanis Age: 43 yrs Sex: Male : 1980 Arrival Date: 10/10/2023 Time: 21:37 Bed DIS2 Private MD: ED Physician Andres Mallory HPI: 10/10 21:42 This 43 yrs old Black Male presents to ER via Unassigned with complaints of Shoulder sp4 Pain. 21:57 PMH - Allergies: Claritin; bp PMHx: Anxiety; Back pain; Migraines; nerve pain; sp4 INTRATHECAL PUMP- DILAUDID; . 21:58 43-year-old male with history of chronic pain on Dilaudid spinal pain pump, with spinal sp4 cord stimulator, history of anxiety depression, presents with right shoulder pain starting Saturday 4 days ago after he accidentally says twisted his shoulder, while getting into his neighbor's truck. Patient reports there is significant pain and decreased range of motion of the right shoulder without deformity or swelling. . Historical: - Allergies: 21:50 Claritin; kl - PMHx: 21:50 Anxiety; Back pain; INTRATHECAL PUMP- DILAUDID; Migraines; nerve pain; kl - Immunization history:: Adult Immunizations up to date. - Social history:: Smoking status: unknown. - Family history:: not pertinent. ROS: 21:58 Constitutional: Negative for fever, chills, and weight loss, positive right shoulder sp4 pain right shoulder injury right shoulder decreased range of motion 21:58 All other systems are negative, Exam: 21:58 Constitutional: This is a well developed, well nourished patient who is awake, alert, sp4 and in no acute distress. Patient has right lower abdominal pain pump implanted under the skin of the right lower abdomen, Head/Face: Normocephalic, atraumatic. Eyes: Pupils equal round and reactive to light, extra-ocular motions intact. Lids and lashes normal. Conjunctiva and sclera are not injected. Cornea within normal limits. Periorbital areas with no swelling, redness, or edema. ENT: Nares patent. No nasal discharge, no septal abnormalities noted. Tympanic membranes are normal and external auditory canals are clear. Oropharynx with no redness, swelling, or masses, exudates, or evidence of obstruction, uvula midline. Mucous membranes moist. Neck: Trachea midline, no thyromegaly or masses palpated, and no cervical lymphadenopathy. Supple, full range of motion without nuchal rigidity, or vertebral point tenderness. Chest/axilla: Normal chest wall appearance and motion. Nontender with no deformity. No lesions are appreciated. Cardiovascular: Regular rate and rhythm with a normal S1 and S2. No gallops, murmurs, or rubs. Normal PMI, no JVD. No pulse deficits. Respiratory: Lungs have equal breath sounds bilaterally, clear to auscultation and percussion. No rales, rhonchi or wheezes noted. No increased work of breathing, no retractions or nasal flaring. Abdomen/GI: Soft, non-tender, with normal bowel sounds. No distension or tympany. No guarding or rebound. No evidence of tenderness throughout. Back: No spinal tenderness. No costovertebral tenderness. Skin: Warm, dry with normal turgor. Normal color with no rashes, no lesions, and no evidence of cellulitis. MS/ Extremity: Pulses equal, no cyanosis. Neurovascular intact. Full, normal range of motion. Neuro: Awake and alert, GCS 15, oriented to person, place, time, and situation. Cranial nerves II-XII grossly intact. Motor strength 5/5 in all extremities. Sensory grossly intact. Psych: Awake, alert, with orientation to person, place and time. Behavior, mood, and affect are within normal limits Vital Signs: 22:00 BP 131 / 71; Pulse 65; Resp 16; Temp 98; Pulse Ox 98% ; bp MDM: 21:45 Patient medically screened. sp4 23:24 Differential diagnosis: humeral head fracture, glenoid fracture, DJD, tendonitis. Data sp4 reviewed: vital signs, nurses notes, radiologic studies, plain films. Consideration of Admission/Observation Escalation of care including admission/observation considered. ED course: Right x-ray is negative -no acute osseous abnormality of the right shoulder noted on x-ray. 10/10 22:24 Order name: Shoulder Right (2 View) XRAY sp4 10/10 23:25 Order name: Alycia; Complete Time: 23:27 sp4 Administered Medications: 22:20 Drug: morphine IM 4 mg IM once Route: IM; Site: left deltoid; bp 23:28 Follow up: Response: No adverse reaction bp 22:20 Drug: Ketorolac IM 60 mg IM once Route: IM; Site: right deltoid; bp 23:28 Follow up: Response: No adverse reaction bp 22:20 Drug: Cyclobenzaprine PO 10 mg PO once Route: PO; bp 23:28 Follow up: Response: No adverse reaction bp 22:20 Drug: Ondansetron PO 4 mg PO once Route: PO; bp 23:27 Follow up: Response: No adverse reaction bp Disposition Summary: 10/10/23 23:23 Discharge Ordered Problem: new sp4 Symptoms: have improved sp4 Condition: Stable sp4 Diagnosis - Other sprain of right shoulder joint sp4 Followup: sp4 - With: Chong Pineda MD - When: 5 - 6 days - Reason: Recheck today's complaints Discharge Instructions: - Discharge Summary Sheet sp4 - Shoulder Sprain sp4 Forms: - Patient Portal Instructions sp4 Prescriptions: - Cyclobenzaprine 10 mg Oral Tablet - take 1 tablet ORAL route every 8 hours As needed; 30 tablet; Refills: 0, sp4 Product Selection Permitted Signatures: Dispatcher [employer] Renetta Palomares, RN RN Dimitri Lucero RN RN Andres Esqueda MD MD sp4
--- NOTE | 2023-10-10 23:23 | ER ---
Nurse's Notes [facility] Name: Harrsi Alanis Age: 43 yrs Sex: Male : 1980 Arrival Date: 10/10/2023 Time: 21:37 Bed DIS2 Private MD: Diagnosis: Other sprain of right shoulder joint Presentation: 10/10 21:49 Chief complaint: Patient states: SLIPPED AND FELL SATURDAY, PULLED AND TWISTED THE RIGHT kl ARM WHILE TRYING TO GET ON THE TRUCK. DENIES PREVIOUS TRAUMA. Coronavirus screen: At this time, the client does not indicate any symptoms associated with coronavirus-19. Ebola Screen: No symptoms or risks identified at this time. Initial Sepsis Screen: Does the patient meet any 2 criteria? No. Patient's initial sepsis screen is negative. Does the patient have a suspected source of infection? No. Patient's initial sepsis screen is negative. Risk Assessment: Do you want to hurt yourself or someone else? Patient reports no desire to harm self or others. Onset of symptoms was October 10, 2023. 21:49 Method Of Arrival: Ambulatory 21:49 Acuity: SHANIQUE 4 kl Triage Assessment: 21:50 General: Appears uncomfortable, Behavior is calm, cooperative. Pain: Complains of pain kl in right arm. Neuro: Level of Consciousness is awake, alert, obeys commands, Oriented to person, place, time, situation. Cardiovascular: Capillary refill Patient's skin is warm and dry. Respiratory: Airway is patent Respiratory effort is even, unlabored. GI: No signs and/or symptoms were reported involving the gastrointestinal system. : No signs and/or symptoms were reported regarding the genitourinary system. Musculoskeletal: Range of motion: limited in right shoulder. Historical: - Allergies: 21:50 Claritin; kl - PMHx: 21:50 Anxiety; Back pain; INTRATHECAL PUMP- DILAUDID; Migraines; nerve pain; kl - Immunization history:: Adult Immunizations up to date. - Social history:: Smoking status: unknown. - Family history:: not pertinent. Screenin:51 [place] ED Fall Risk Assessment (Adult) History of falling in the last 3 months, kl including since admission No falls in past 3 months (0 pts) Score/Fall Risk Level 0 - 2 = Low Risk Oriented to surroundings, Maintained a safe environment, Educated pt \T\ family on fall prevention, incl call for assistance when getting out of bed, Assessed \T\ reinforced patient's understanding of fall precautions, Provided non-skid footwear, Hourly rounding (assess needs \T\ fall precautionary measures) done, Used ambulatory aids as needed (educated on \T\ assisted with), Used gait belt as appropriate. Abuse screen: Denies threats or abuse. Denies injuries from another. Nutritional screening: No deficits noted. Tuberculosis screening: No symptoms or risk factors identified. Vital Signs: 22:00 BP 131 / 71; Pulse 65; Resp 16; Temp 98; Pulse Ox 98% ; bp ED Course: 21:39 Patient arrived in ED. ag3 21:42 Andres Mallory MD is Attending Physician. sp4 21:50 Triage completed. kl 21:50 Arm band placed on right wrist. kl 21:51 Patient has correct armband on for positive identification. kl 21:51 No provider procedures requiring assistance completed. Patient admitted, IV remains in kl place. 22:20 Dimitri Hardy, FLAVIA is Primary Nurse. bp 22:53 Shoulder Right (2 View) XRAY In Process Unspecified. EDMS 23:22 Chong Pineda MD is Referral Physician. sp4 23:28 Sling applied to right arm. bp Administered Medications: 22:20 Drug: morphine IM 4 mg IM once Route: IM; Site: left deltoid; bp 23:28 Follow up: Response: No adverse reaction bp 22:20 Drug: Ketorolac IM 60 mg IM once Route: IM; Site: right deltoid; bp 23:28 Follow up: Response: No adverse reaction bp 22:20 Drug: Cyclobenzaprine PO 10 mg PO once Route: PO; bp 23:28 Follow up: Response: No adverse reaction bp 22:20 Drug: Ondansetron PO 4 mg PO once Route: PO; bp 23:27 Follow up: Response: No adverse reaction bp Medication: 21:51 VIS not applicable for this client. kl Outcome: 23:23 Discharge ordered by . sp4 23:28 Discharged to home ambulatory, bp 23:28 Condition: stable 23:28 Discharge instructions given to patient, Instructed on discharge instructions, follow up and referral plans. medication usage, Demonstrated understanding of instructions, follow-up care, medications, Prescriptions given X 1, 23:29 Patient left the ED. bp Signatures: Dispatcher [employer] EDRenetta Martines RN RN kl Peltier, Brian, RN RN bp Gomez, Alice ag3 Andres Mallory MD MD sp4
[2023-10-10 23:55] VITALS: BP 131/71; TEMP 98; O2SAT 98
--- NOTE | 2023-10-11 11:19 | RAD REPORT ---
EXAM DESCRIPTION: RAD - Shoulder Right 2 View - 10/10/2023 10:51 pm CLINICAL HISTORY: The patient is 43 years old and is Male; injury , sprain Bed Name: DIS2 TECHNIQUE: Internal and external rotation views of the right shoulder. COMPARISON: No relevant prior studies available. FINDINGS: BONES/JOINTS: Unremarkable. No acute fracture. No dislocation. SOFT TISSUES: Unremarkable. LUNGS: Visualized right hemithorax is well aerated and clear. TUBES, LINES AND DEVICES: Partially visualized neurostimulator leads terminating cephalad overlying the inferior thoracic spine. IMPRESSION: No acute findings in the right shoulder. Electronically signed by: Sai Landaverde MD 10/10/2023 11:03 PM MANAGER PHOTOGRAPHY Due to temporary technical issues with the PACS/Fluency reporting system, reports are being signed by the in house radiologists without review as a courtesy to insure prompt reporting. The interpreting radiologist is fully responsible for the content of the report.
== END 2023-10-10 23:29 | disposition home or self-care (01) ==
LOC: ER 21:37
DX: S43.491A Other sprain of right shoulder joint, initial encounter (principal); Z88.8 Allergy status to other drugs, medicaments and biological substances
CPT/HCPCS: 73030; 96372; 99284; Q0162

== ENCOUNTER 2024-07-26 00:11 | Emergency (ER) | payer OTHER ==
[2024-07-26] MEDS ORDERED: TDAP (DIPHTH,PERTUSS(ACELL),TET VAC) 0.5 ML VIAL IMVAC ONE (00:53)
[2024-07-26] MEDS ORDERED: IBUPROFEN 400 MG TAB ONE (02:20)
[2024-07-26] MEDS ORDERED: ACETAMINOPHEN 500 MG TAB ONE (02:20)
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
[2024-07-26 04:11] VITALS: TEMP 97.1; O2SAT 100
[2024-07-26 04:15] VITALS: BP 137/91
--- NOTE | 2024-07-27 13:36 | RAD REPORT ---
EXAM DESCRIPTION: XR Knee 3 View Right 07/26/2024 2:20 AM CDT CLINICAL HISTORY: 44 years, Male, Right knee pain. COMPARISON: None. FINDINGS: 3 X-ray views of the right knee (frontal lateral and oblique projections) were performed. Bones: No areas of acute bony injuries were demonstrated. Soft tissues: No significant soft tissue swelling. Joints: There is no joint effusion. Others: There are no gross intraosseous lesions. No periosteal reaction were seen. IMPRESSION: No acute bony injuries were demonstrated. Electronically signed by: Mauricio Cavanaugh MD 07/26/2024 02:45 AM CDT Due to temporary technical issues with the PACS/Fluency reporting system, reports are being signed by the in house radiologist without review as a courtesy to ensure prompt reporting. The interpreting r adiologist is fully responsible for the content of the report.
--- NOTE | 2024-07-27 13:37 | RAD REPORT ---
EXAM DESCRIPTION: XR FOOT 2 VIEW RIGHT 07/26/2024 2:21 AM CDT CLINICAL HISTORY: 44 years, Male, Right foot pain. COMPARISON: None. FINDINGS: 2 X-ray views of the right foot (frontal and lateral projections) were performed. Bones: No areas of acute bony injuries were demonstrated. Soft tissues: No significant soft tissue swelling. Joints: No gross articular abnormality is identified. Others: There are no gross intraosseous lesions. No periosteal reaction were seen.. No definitive d isplaced fracture are identified, if symptoms persist, clinical correlation and/or further evaluation with CT scan and/or MRI could be of assistance. IMPRESSION: No acute bony injuries were demonstrated. No significant soft tissue swelling. Electronically signed by: Mauricio Cavanaugh MD 07/26/2024 02:47 AM CDT Due to temporary technical issues with the PACS/Fluency reporting system, reports are being signed by the in house radiologist without review as a courtesy to ensure prompt reporting. The interpreting r adiologist is fully responsible for the content of the report.
--- NOTE | 2024-07-27 13:38 | RAD REPORT ---
EXAM DESCRIPTION: XR ANKLE 3 VIEWS RIGHT 07/26/2024 2:18 AM CDT CLINICAL HISTORY: 44 years, Male, Right ankle pain. COMPARISON: XR Ankle right 09/05/2022. FINDINGS: 3 X-ray views of the right ankle (frontal lateral and oblique projections) were performed. Bone: There is no evidence for fracture or dislocation. The ankle mortise is intact. Soft tissues: Bilateral soft tissue swelling. Joints: There is no significant joint effusion. Others: There are no gross intraosseous lesions. IMPRESSION: Bilateral soft tissue swelling. No acute osseous abnormality. Electronically signed by: Mauricio Cavanaugh MD 07/26/2024 02:45 AM CDT Due to temporary technical issues with the PACS/Fluency reporting system, reports are being signed by the in house radiologist without review as a courtesy to ensure prompt reporting. The interpreting r adiologist is fully responsible for the content of the report.
--- NOTE | 2024-07-27 13:39 | RAD REPORT ---
EXAM DESCRIPTION: XR SHOULDER 2 VIEW RIGHT 07/26/2024 2:23 AM CDT CLINICAL HISTORY: 44 years, Male, Fall, pain. COMPARISON: XR Shoulder right 10/10/2023. FINDINGS: 2 X-ray views of the right shoulder (Internal rotation and external rotation projections) were performed. Bones: There is no evidence for fracture or dislocation. Soft tissues: No significant soft tissue swelling. Joints: No gross articular abnormality is identified. The AC joint demonstrate to be within normal li mits. There is no evidence for AC joint separation. Others: There are no gross intraosseous lesions. No periosteal reaction were seen. IMPRESSION: No acute osseous abnormality. Electronically signed by: Mauricio Cavanaugh MD 07/26/2024 02:46 AM CDT RP Due to temporary technical issues with the PACS/Fluency reporting system, reports are being signed by the in house radiologist without review as a courtesy to ensure prompt reporting. The interpreting r adiologist is fully responsible for the content of the report.
--- NOTE | 2024-07-27 13:40 | RAD REPORT ---
EXAM DESCRIPTION: XR WRIST 3 VIEWS RIGHT 07/26/2024 2:24 AM CDT CLINICAL HISTORY: 44 years, Male, Pain, fall. COMPARISON: None. FINDINGS: 3 X-ray views of the right wrist (frontal lateral and oblique projections) were performed. Bones: No areas of acute bony injuries were demonstrated. Carpal bones demonstrate normal alignment . Soft tissues: No significant soft tissue swelling. Joints: No gross articular abnormality is identified. Others: There are no gross intraosseous lesions. No periosteal reaction were seen. IMPRESSION: No acute bony injuries were demonstrated. Electronically signed by: Mauricio Cavanaugh MD 07/26/2024 02:45 AM CDT RP Due to temporary technical issues with the PACS/Fluency reporting system, reports are being signed by the in house radiologist without review as a courtesy to ensure prompt reporting. The interpreting r adiologist is fully responsible for the content of the report.
--- NOTE | 2024-07-27 13:41 | RAD REPORT ---
EXAM DESCRIPTION: XR HAND 3 VIEWS RIGHT 07/26/2024 2:26 AM CDT CLINICAL HISTORY: 44 years, Male, Wrist pain. COMPARISON: XR Hand right 12/06/2021. FINDINGS: 3 X-ray views of the right hand (frontal lateral and oblique projections) were performed. Bones: No areas of acute bony injuries were demonstrated. Carpal bones demonstrate to be unremarkable . Soft tissues: No significant soft tissue swelling. Joints: No gross articular abnormality is identified. Others: There are no gross intraosseous lesions. No periosteal reaction were seen. IMPRESSION: No acute bony injuries were demonstrated. Electronically signed by: Mauricio Cavanaugh MD 07/26/2024 02:46 AM CDT Due to temporary technical issues with the PACS/Fluency reporting system, reports are being signed by the in house radiologist without review as a courtesy to ensure prompt reporting. The interpreting r adiologist is fully responsible for the content of the report.
== END 2024-07-26 04:06 | disposition home or self-care (01) ==
LOC: ER 00:11
DX: S43.401A Unspecified sprain of right shoulder joint, initial encounter (principal); S63.501A Unspecified sprain of right wrist, initial encounter; S93.401A Sprain of unspecified ligament of right ankle, initial encounter; S93.601A Unspecified sprain of right foot, initial encounter; S80.211A Abrasion, right knee, initial encounter; S80.01XA Contusion of right knee, initial encounter; S60.221A Contusion of right hand, initial encounter; W05.2XXA Fall from non-moving motorized mobility scooter, initial encounter; Z97.8 Presence of other specified devices
CPT/HCPCS: 96372; 99284